=== PATIENT | male | born 1980 | race Caucasian/White ===

== ENCOUNTER 2021-03-01 19:53 | Emergency (ER) | payer MEDICARE, SELFPAY ==
[2021-03-01 20:01] VITALS: BP 125/67; PULSE 74; RESP 18; TEMP 36.6; O2SAT 97
[2021-03-01 21:02] LABS: Glucose Point of Care 369 mg/dl (65-105)
== END 2021-03-02 03:24 | disposition left against medical advice (07) ==
PROVIDERS: Emergency Provider Emergency Medicine; PCP Family Medicine
DX: R50.9 Fever, unspecified (principal); R11.10 Vomiting, unspecified; Z53.21 Procedure and treatment not carried out due to patient leaving prior to being seen by health care provider
CPT/HCPCS: 82948; 99199

== ENCOUNTER 2021-06-01 14:30 | Emergency (ER) | payer OTHER, SELFPAY ==
--- NOTE | ~2021-06-01 | XR_ITS ---
EXAMINATION: XR chest 1V portable EXAM DATE: 06/01/2021 16:04 INDICATION: Rt lower chest pain x today. TECHNIQUE: Portable AP frontal chest x-ray was obtained. Comparison is made to prior examination from 07/19/2017. FINDINGS: The lungs are clear. There are no pleural effusions. The cardiac silhouette is enlarged. There is no pneumothorax suspected. Thoracolumbar fusion hardware. IMPRESSION: Cardiomegaly unchanged. Reviewed, dictated and finalized at location [facility]. IMPRESSION: Cardiomegaly unchanged.
[2021-06-01 14:30] VITALS: BP 216/108; PULSE 68; RESP 20; TEMP 35.8; O2SAT 100
--- NOTE | 2021-06-01 15:03 | ED.CHESTPAIN ---
HPI - Chest Pain General Chief Complaint: Shortness of Breath/Dyspnea Stated Complaint: Hurts to breath Time Seen by Provider: 06/01/21 15:04 Source: patient History of Present Illness HPI narrative: 41-year-old male hypertension, diabetes mellitus dyslipidemia, end-stage renal disease since 2015, osteomyelitis of the right foot with healing, PVD status post left little toe amputation, with a negative stress test for recurrent chest pain presents to the ER with -- right-sided chest pain which is pleuritic. Pain is made worse by deep breathing. Pain is sharp and stabbing. -- Shortness of breath with deep breathing. Chest congestion -- Incomplete dialysis treatments at [place] secondary to decrease in blood pressure and cramps during dialysis treatments. -- hypertensive with a blood pressure of 210/87. MD complaint: chest pain Onset (ago): month(s) ( he has chronic chest pains. He was seen by cardiology in March and had a negative stress test in April of 2021.) Timing of current episode: episodic Prior episodes: Yes Onset: other ( Associated with deep breathing) Pain location: right chest Pain radiation: none Severity: moderate Quality: aching and sharp Relieving factors: nothing Exacerbating factors: nothing and inspiration Treatment prior to arrival: none Risk Factors Coronary artery disease risk factors: diabetes, hyperlipidemia and hypertension Thoracic aortic dissection risk factors: longstanding hypertension Related Data Home Medications Medication Instructions Recorded Confirmed furosemide 80 mg tablet 80 mg PO TID tablet 04/29/21 06/01/21 atorvastatin 40 mg PO DAILY 06/01/21 06/01/21 calcium acetate(phosphat bind) 667 mg PO DAILY 06/01/21 06/01/21 Allergies Allergy/AdvReac Type Severity Reaction Status Date / Time amlodipine [Norvasc] Allergy Intermediate Unknown Verified 04/29/21 07:56 morphine Allergy Intermediate Unknown Verified 04/29/21 07:56 levofloxacin Allergy Mild Unknown Verified 04/29/21 07:56 Review of Systems Review of Systems: All systems reviewed & are unremarkable except as noted in HPI and below Constitutional: Constitutional: Reports as per HPI and Reports no additional constitutional complaints Eyes: Eyes: Reports as per HPI and Reports no additional eye complaints ENT: Reports system reviewed and no additional complaints, except as documented and Reports as per HPI Cardiovascular: Cardiovascular: Reports as per HPI, Reports no additional cardiovascular complaints and Reports chest pain Respiratory: Respiratory: Reports as per HPI, Reports no additional respiratory complaints and Reports dyspnea Gastrointestinal: Gastrointestinal: Reports as per HPI and Reports no additional gastrointestinal complaints Genitourinary: Comments: Patient is aneuric. On HD via left arm AV fistula Musculoskeletal: Musculoskeletal: Reports no additional musculoskeletal complaints Integumentary/Breasts: Skin/Breast: Reports system reviewed and no additional complaints, except as docu and Reports as per HPI Neurologic: Reports system reviewed and no additional complaints, except as documented and Reports as per HPI Psychiatric: Psychiatric: Reports no additional psychiatric complaints and Reports as per HPI Endocrine: Endocrine: Reports no additional endocrine complaints and Reports as per HPI Hematologic/Lymphatic: Hematologic/Lymphatic: Reports no additional hematologic/lymphatic complaints and Reports as per HPI Allergic/Immunologic: Allergic/Immunologic: Reports no additional allergic/immunologic complaints and Reports as per HPI PMF Past Medical History Medical History Cellulitis of right leg Chronic back pain Diabetes mellitus with retinopathy End stage renal disease on dialysis Hypertension Pre-op evaluation Right leg pain Skin ulcer of plantar aspect of right foot Swelling of right lower extremity Surgical History Surgica
--- NOTE | 2021-06-01 15:29 | ECG_ITS ---
Measurements Intervals [place] Rate: 64 P: 43 [place]: 198 QRS: 152 QRSD: 113 T: 21 QT: 422 QTc: 435 Interpretive Statements SINUS RHYTHM POSSIBLE RIGHT VENTRICULAR HYPERTROPHY [SOME/ALL OF: PROMINENT R IN V1, LATE TRANSITION, RAD, ANANDA, SSS] TALL T-WAVES, SUGGESTS HYPERKALEMIA ABNORMAL ECG NO PREVIOUS ECG AVAILABLE FOR COMPARISON Electronically Signed On 06-02-2021 15:26:21 CDT by Tadeo Hernandez M.D.
[2021-06-01 16:07] LABS: Basophils Absolute Auto 0.01 K/mm3 (0.00-0.10); Basophils Percent Auto 0.2 % (0.0-1.0); Eosinophils Absolute Auto 0.05 K/mm3 (0.02-0.50); Eosinophils Percent Auto 1.2 % (1.0-6.0); Hematocrit 35.6 % (40.0-54.0); Hemoglobin 11.9 g/dL (14.0-18.0); Immature Granulocyte Absolute 0.01 K/mm3 (0.00-0.00); Immature Granulocyte Percent A 0.2 % (0.0-0.0); Lymphocytes Absolute Auto 0.98 K/mm3 (1.10-4.50); Lymphocytes Percent Auto 23.1 % (18.0-42.0); Mean Corpuscular HGB Conc 33.4 g/dL (32.0-36.0); Mean Corpuscular Hemoglobin 29.2 pg (27.0-31.0); Mean Corpuscular Volume 87.3 fL (78.0-102.0); Mean Platelet Volume 9.4 fl (8.7-11.0); Monocytes Absolute Auto 0.33 K/mm3 (0.10-0.90); Monocytes Percent Auto 7.8 % (2.0-11.0); Neutrophils Absolute Auto 2.9 K/mm3 (1.7-7.2); Neutrophils Percent Auto 67.5 % (50.0-70.0); Platelet Count Result 190 K/mm3 (150-420); Red Blood Count 4.08 M/mm3 (4.70-6.10); Red Cell Distribution Width 13.7 % (11.6-14.4); White Blood Count 4.2 K/mm3 (4.8-10.8)
[2021-06-01 16:12] LABS: Lactic Acid Reflex 0.9 mmol/L (0.4-2.0)
[2021-06-01 16:15] LABS: INR 1.1; Prothrombin Time 11.7 Seconds (9.50-12.10)
[2021-06-01 16:21] LABS: Alanine Aminotransferase 37 U/L (16-63); Albumin Level 3.8 g/dL (3.4-5.0); Alkaline Phosphatase 183 U/L (46-116); Aspartate Amino Transferase 23 U/L (15-37); Bilirubin,Total 0.6 mg/dL (0.00-1.00); Blood Urea Nitrogen 88 mg/dL (7-18); Carbon Dioxide 21 mmol/L (21-32); Estimated Glomerular Filt Rate 5; Glucose 288 mg/dL (70-99); Total Protein 7.6 g/dL (6.4-8.2); Troponin I 32.3 ng/L (0.00-60.4)
[2021-06-01 16:25] LABS: Anion Gap 13 mmol/L (8-16); Chloride 95 mmol/L (98-108); Osmolality Calculated 305 mOsm/kg (285-295); Sodium 129 mmol/L (136-145)
[2021-06-01 16:30] LABS: D Dimer 0.84 mg/L (0.19-0.50)
[2021-06-01] MEDS: LABETALOL HCL INJ 100 MG/20 ML VIAL 10 MG IV PUSH (16:31)
[2021-06-01] MEDS: INSULIN HUMAN REGULAR (*BKC) 100 UNITS/ML IV PUSH (17:37)
[2021-06-01] MEDS: SODIUM ZIRCONIUM CYCLOSILICATE 5 GM POWD.PACK PO (17:39)
[2021-06-01] MEDS: SODIUM BICARBONATE 8.4% 50 MEQ/50 ML SYRINGE IV PUSH (17:41)
[2021-06-01] MEDS: DEXTROSE 50% 25 GM/50 ML SYRINGE IV PUSH (17:41)
[2021-06-01] MEDS: SODIUM CHLORIDE 0.9% IV 100 ML 600 ML (17:47)
[2021-06-01] MEDS: CALCIUM GLUCONATE 1,000 MG/10 ML VIAL 1000 MG IV PUSH (17:49)
[2021-06-01] MEDS: hydrALAZINE HCL 20 MG/ML VIAL 10 MG IV PUSH (17:55)
--- NOTE | 2021-06-01 18:20 | PC.NURSE ---
REPORT TO ORTEGA WHEELER
[2021-06-01] MEDS: cloNIDine HCL 0.2 MG TABLET PO (19:02)
[2021-06-01] MEDS: HYDROcodone/acetaminophen (*CRX) 10-325 MG TABLET 1 TAB PO (19:02)
[2021-06-01 19:21] VITALS: BP 204/100; PULSE 74; RESP 18; O2SAT 97
[2021-06-01 20:02] VITALS: BP 209/85; PULSE 75
[2021-06-01] MEDS: NITROGLYCERIN/D5W 200 MCG/ML 50 MG/250 ML BTL IV CONT (20:02)
[2021-06-01 20:47] VITALS: BP 195/89; PULSE 71; RESP 20; O2SAT 98
[2021-06-01 21:09] VITALS: BP 170/102; PULSE 75; RESP 18; TEMP 36.1; O2SAT 99
[2021-06-01] MEDS: HYDROmorphone HCL INJ (*CRX) 2 MG/ML VIAL 1 MG IM (21:19)
--- NOTE | 2021-06-01 21:25 | PC.NURSE ---
Pt resting and talking on his phone, BP remains elevated at 170/102 c Nitro gtt infusing per order. Pain injection of Dilaudid given per order before pt transfer. Awaiting [facility] for transfer.
== END 2021-06-01 21:44 | disposition short-term general hospital (02) ==
PROVIDERS: Emergency Provider Internal Medicine Critical Care Medicine; PCP Nurse Practitioner Family
DX: E87.5 Hyperkalemia (principal); N18.6 End stage renal disease; I10 Essential (primary) hypertension; R06.02 Shortness of breath
CPT/HCPCS: 36415; 71045; 80053; 83605; 83880; 84484; 85025; 85380; 85610; 93005; 96365; 96372; 96375; 99285; A9270; J0360; J0610; J1170; J1815

== ENCOUNTER 2022-04-07 11:14 | Outpatient (CLI) | payer OTHER, SELFPAY ==
--- NOTE | ~2022-04-07 | XR_ITS ---
Clinical Indication: Shortness of breath PA and lateral views of the chest: Comparison: 06/01/2021 Findings: The lungs are clear, without evidence of focal consolidation or pleural effusion. Cardiome diastinal silhouette is stable. Thoracolumbar spinal fixation hardware again noted. Impression: Clear lungs. Reviewed, dictated and finalized at [facility]. EMS ADMINISTRATION ANALYST Impression: Clear lungs.
[2022-04-07 12:13] LABS: Alanine Aminotransferase 22 U/L (16-63); Albumin Level 3.6 g/dL (3.4-5.0); Alkaline Phosphatase 333 U/L (46-116); Anion Gap 12 mmol/L (8-16); Aspartate Amino Transferase 28 U/L (15-37); Bilirubin,Total 0.5 mg/dL (0.00-1.00); Blood Urea Nitrogen 39 mg/dL (7-18); Calcium 8.1 mg/dL (8.5-10.1); Carbon Dioxide 27 mmol/L (21-32); Chloride 92 mmol/L (98-108); Estimated Glomerular Filt Rate 8; Glucose 398 mg/dL (70-99); Osmolality Calculated 298 mOsm/kg (285-295); Potassium 4.7 mmol/L (3.5-5.1); Sodium 131 mmol/L (136-145); Total Protein 6.9 g/dL (6.4-8.2)
[2022-04-07 12:16] LABS: SARS-CoV-2 RNA PCR Negative (Negative)
[2022-04-07 13:30] LABS: Basophils Absolute Auto 0.02 K/mm3 (0.00-0.10); Basophils Percent Auto 0.3 % (0.0-1.0); Eosinophils Absolute Auto 0.02 K/mm3 (0.02-0.50); Eosinophils Percent Auto 0.3 % (1.0-6.0); Hematocrit 33.3 % (40.0-54.0); Immature Granulocyte Absolute 0.03 K/mm3 (0.00-0.00); Immature Granulocyte Percent A 0.4 % (0.0-0.0); Lymphocytes Percent Auto 15.9 % (18.0-42.0); Mean Corpuscular Hemoglobin 28.5 pg (27.0-31.0); Mean Corpuscular Volume 86.3 fL (78.0-102.0); Mean Platelet Volume 10.2 fl (8.7-11.0); Monocytes Percent Auto 7.2 % (2.0-11.0); Neutrophils Absolute Auto 5.3 K/mm3 (1.7-7.2); Neutrophils Percent Auto 75.9 % (50.0-70.0); Platelet Count Result 221 K/mm3 (150-420); Red Blood Count 3.86 M/mm3 (4.70-6.10); Red Cell Distribution Width 13.5 % (11.6-14.4); White Blood Count 6.9 K/mm3 (4.8-10.8)
== END 2022-04-07 11:15 | disposition home or self-care (01) ==
PROVIDERS: PCP Nurse Practitioner Family; Visit Provider Nurse Practitioner Family
DX: R06.02 Shortness of breath (principal); Z20.822 Contact with and (suspected) exposure to COVID-19
CPT/HCPCS: 36415; 71046; 80053; 85025; U0003; U0005

== ENCOUNTER 2022-04-21 14:15 | Outpatient (CLI) | payer OTHER, SELFPAY ==
--- NOTE | 2022-04-21 14:23 | ECHO_ITS ---
Patient Info Name: Solis Barcenas Age: 42 years : 1980 Gender: Male Ht: 72 in Wt: 210 lbs BSA: 2.22 m2 HR: 58 bpm BP: 94 / 48 mmHg Technical Quality: Good Exam Date: 04/21/2022 3:12 PM Exam Location: [facility] Patient Status: Outpatient Admit Date: 04/21/2022 Staff Ordering Physician: Ankur Jorge APRN Electrode Turner And Finisher: Alejandro Alfonso, HUDSON, RT Attending Provider: Ankur Jroge APRN Exam Type: CA echo doppler color flow Study Info Indications R06.02 - Shortness of breath Complete two-dimensional, color flow and Doppler transthoracic echocardiogram is performed. Strain analysis performed. Summary 1. Complete two-dimensional, color flow and Doppler transthoracic echocardiogram is performed. 2. Left ventricular chamber dimension is normal. 3. Left ventricular systolic function is normal, estimated at 60-65%. 4. There is mildly increased left ventricular wall thickness. 5. The left ventricular diastolic function is grade I diastolic dysfunction. 6. E/e' 6 is not elevated. 7. Global longitudinal strain is abnormal at -14.2%. 8. Right ventricular chamber dimension is moderately enlarged. 9. Right atrial chamber dimension is moderately enlarged. 10. There is mild aortic valve sclerosis. 11. The mitral valve has moderately calcified annulus. 12. There is mild tricuspid valve regurgitation. 13. Mild pulmonary hypertension, estimated pulmonary arterial systolic pressure is 43 mmHg. 14. There is trace pulmonic regurgitation. 15. Dilated inferior vena cava with >50% collapse upon inspiration consistent with elevated right atrial pressure, 10 mmHg. 16. There is trivial pericardial effusion. Left Ventricle E/e' 6 is not elevated. Global longitudinal strain is abnormal at -14.2%. Left ventricular chamber dimension is normal. Left ventricular systolic function is normal, estimated at 60-65%. There is mildly increased left ventricular wall thickness. The left ventricular diastolic function is grade I diastolic dysfunction. Right Ventricle Right ventricular systolic function is normal based on normal TAPSE 1.8 cm as RV function is not well seen. Right ventricular chamber dimension is moderately enlarged. Left Atria Left atrial chamber dimension is normal. Right Atria Right atrial chamber dimension is moderately enlarged. Aortic Valve The aortic valve is trileaflet. There is mild aortic valve sclerosis. There is no aortic valve stenosis. There is no aortic valve regurgitation. Pulmonic Valve There is trace pulmonic regurgitation. Mitral Valve The mitral valve has moderately calcified annulus. There is no mitral valve stenosis. There is no mitral valve regurgitation. Tricuspid Valve There is mild tricuspid valve regurgitation. Mild pulmonary hypertension, estimated pulmonary arterial systolic pressure is 43 mmHg. Pericardium/Pleural There is trivial pericardial effusion. Inferior Vena Cava Dilated inferior vena cava with >50% collapse upon inspiration consistent with elevated right atrial pressure, 10 mmHg. Aorta The aortic root size at the sinus of Valsalva is normal. Left Ventricular Outflow Tract Name Value Normal LVOT 2D LVOT Diameter 2.1 cm
== END 2022-04-21 14:16 | disposition home or self-care (01) ==
LOC: CHSIMG 14:17
PROVIDERS: PCP Nurse Practitioner Family; Visit Provider Nurse Practitioner Family
DX: R06.02 Shortness of breath (principal); I27.20 Pulmonary hypertension, unspecified; I08.3 Combined rheumatic disorders of mitral, aortic and tricuspid valves
CPT/HCPCS: 93306

== ENCOUNTER 2023-03-16 10:38 | Emergency (ER) | payer OTHER, SELFPAY ==
--- NOTE | ~2023-03-16 | XR_ITS ---
AP view of the pelvis and AP and lateral views of the right hip Clinical history: Pain Findings: No acute fracture or dislocation is seen. Osseous alignment is anatomic. Bilateral hip and SI joint spaces are preserved. Soft tissues are unremarkable. Impression: No significant abnormality is seen. Reviewed, dictated and finalized at [facility]. OLOGY LABORATORY TECHNOLOGIST Impression: No significant abnormality is seen.
--- NOTE | ~2023-03-16 | XR_ITS ---
Lumbosacral Spine: AP and lateral views Clinical History: Pain Findings: No acute fracture or subluxation seen. There is posterior fusion hardware from T10 to L1, w ith bilateral rods and transpedicular screws present. There is interbody fusion device at T11-T12. Th ere is minimal degenerative disc change of the lumbar spine. There is moderate to advanced facet arth ropathy throughout the lumbar spine. Questionable extensive sclerotic change of the osseous structure s. The sacroiliac joints are normally outlined. Impression: Posterior fusion from T10 to L1, as detailed above. [id number] degenerative spondylosis in the lumbar spine. Questionable extensive sclerotic change. Correlate for metabolic bone disease. Reviewed, dictated and finalized at location M. REAM BIOMANUFACTURING TECHNICIAN Impression: Posterior fusion from T10 to L1, as detailed above. [id number] degenerative spondylosis in the lumbar spine. Questionable extensive sclerotic change. Correlate for metabolic bone disease.
[2023-03-16 10:38] VITALS: BP 155/84; PULSE 73; RESP 17; TEMP 36.8; O2SAT 99
--- NOTE | 2023-03-16 10:55 | ED.LOWEXIN ---
HPI - Extremity Injury (Lower) General Chief Complaint: Extremity Injury, Lower Stated Complaint: right hip Time Seen by Provider: 03/16/23 10:43 Source: patient Mode of arrival: ambulatory Limitations: no limitations History of Present Illness HPI Narrative: Patient is a 43 year old male with a significant PMH that presents today for right hip pain. Patient had a broken left foot and was supposed To be wearing a boot but decided not to wear the boot because he was on even it was affecting his right hip. He has not been wearing the boot. His right hip has been hurting him. Will then keri day he was walking up a stair and caught his left foot on the stair and felt like he pulled his hepatic place. His right hip now is very painful to movement and he said he could barely get out bed. Does have some [place] sent home from his foot so he took 1 [place] before he came here a . Patient is currently on dialysis and cannot take NSAIDs MD complaint: hip injury Onset (ago): day(s) Injury: Right: hip Type of Injury: hyperextension Place: street/outdoors Severity: moderate Severity scale (1-10): 6 Relieving factors: immobilization Exacerbating factors: weight bearing and movement Context: other (up stairs) Associated symptoms: snap/pop sensation Other symptoms: none Related Data Home Medications Medication Instructions Recorded Confirmed atorvastatin 40 mg tablet 40 mg PO DAILY 06/01/21 03/16/23 nitroglycerin 0.4 mg sublingual 0.4 mg sublingual Q5M PRN Chest 05/29/22 03/16/23 tablet Pain blood-glucose sensor (DexRenrendai G6 10/04/22 03/16/23 Sensor device) blood-glucose transmitter (Dexcom 10/04/22 03/16/23 G6 Transmitter device) hydralazine 100 mg tablet 50 mg PO BID 10/04/22 03/16/23 metoprolol succinate 100 mg 50 mg PO BID 10/04/22 03/16/23 tablet,extended release 24 hr amiodarone 200 mg tablet 200 mg PO DAILY 12/13/22 03/16/23 apixaban 5 mg tablet (Eliquis) 5 mg PO BID 12/13/22 03/16/23 hydralazine 25 mg tablet 37.5 mg PO .at bedtime 12/13/22 03/16/23 pantoprazole 40 mg tablet,delayed 40 mg PO QAM 12/13/22 03/16/23 release isosorbide mononitrate 30 mg 30 mg PO DAILY 01/10/23 03/16/23 tablet,extended release 24 hr ticagrelor 90 mg tablet (Brilinta) 90 mg PO Q12H 01/10/23 03/16/23 Allergies Allergy/AdvReac Type Severity Reaction Status Date / Time amlodipine [Norvasc] Allergy Intermediate Unknown Verified 03/16/23 10:46 morphine Allergy Intermediate Unknown Verified 03/16/23 10:46 levofloxacin Allergy Mild Unknown Verified 03/16/23 10:46 lisinopril Allergy Unknown Unknown Verified 03/16/23 10:46 carvedilol AdvReac Unknown Shakiness Verified 03/16/23 10:46 Review of Systems Review of Systems: All systems reviewed & are unremarkable except as noted in HPI and below Constitutional: Constitutional: Reports no additional constitutional complaints Eyes: Eyes: Reports no additional eye complaints ENT: Reports system reviewed and no additional complaints, except as documented Cardiovascular: Cardiovascular: Reports no additional cardiovascular complaints Respiratory: Respiratory: Reports no additional respiratory complaints Gastrointestinal: Gastrointestinal: Reports no additional gastrointestinal complaints Genitourinary: Genitourinary: Reports no additional male genitourinary complaints Musculoskeletal: Musculoskeletal: Reports back pain and Reports arthralgias (right hip) Integumentary/Breasts: Skin/Breast: Reports system reviewed and no additional complaints, except as docu Neurologic: Reports system reviewed and no additional complaints, except as documented Psychiatric: Psychiatric: Reports no additional psychiatric complaints Endocrine: Endocrine: Reports no additional endocrine complaints Hematologic/Lymphatic: Hematologic/Lymphatic: Reports no additional hematologic/lymphatic complaints Allergic/Immunologic: Allergic/Immunologic: Reports no additional allergic/immunologic complaints [facility]
[2023-03-16] MEDS: HYDROcodone/acetaminophen (*CRX) 10-325 MG TABLET 1 TAB PO (11:01)
[2023-03-16 12:08] VITALS: BP 145/71; PULSE 61; RESP 17; TEMP 36.8; O2SAT 99
== END 2023-03-16 12:08 | disposition home or self-care (01) ==
PROVIDERS: Emergency Provider Family Medicine; PCP Nurse Practitioner Family
DX: S79.911A Unspecified injury of right hip, initial encounter (principal); M54.50 Low back pain, unspecified; I48.91 Unspecified atrial fibrillation; J44.9 Chronic obstructive pulmonary disease, unspecified; E11.9 Type 2 diabetes mellitus without complications; I10 Essential (primary) hypertension; Z79.899 Other long term (current) drug therapy; Z79.01 Long term (current) use of anticoagulants; X50.0XXA Overexertion from strenuous movement or load, initial encounter; Y92.410 Unspecified street and highway as the place of occurrence of the external cause
CPT/HCPCS: 72100; 73502; 99284; A9270

== ENCOUNTER 2023-05-04 12:07 | Outpatient (CLI) | payer OTHER, SELFPAY ==
--- NOTE | ~2023-05-04 | XR_ITS ---
AP view of the pelvis and AP and lateral views of the right hip Clinical history: Pain Findings: No acute fracture or dislocation is seen. Osseous alignment is anatomic. Bilateral hip and SI joint spaces are preserved. Soft tissues are unremarkable. Impression: No significant abnormality is seen. Reviewed, dictated and finalized at [facility]. CAL INSTRUCTOR Impression: No significant abnormality is seen.
== END 2023-05-04 12:08 | disposition home or self-care (01) ==
PROVIDERS: PCP Nurse Practitioner Family; Visit Provider Nurse Practitioner Family
DX: M25.551 Pain in right hip (principal)
CPT/HCPCS: 73502

== ENCOUNTER 2023-09-03 10:37 | Outpatient (CLI) | payer MEDICARE, SELFPAY ==
--- NOTE | 2023-09-03 10:53 | ECG_ITS ---
Test Date: 2023-09-03 11:02:44 Measurements Intervals [place] Rate: 75 P: 64 ND: 187 QRS: 106 QRSD: 109 T: 40 QT: 411 QTc: 461 Interpretive Statements SINUS RHYTHM WITH OCCASIONAL SUPRAVENTRICULAR PREMATURE COMPLEXES RIGHT AXIS DEVIATION BORDERLINE ST ABNORMALITY- ANTEROLAT/INF LEADS BORDERLINE ECG No previous ECG available for comparison Electronically Signed On 09-03-2023 11:31:48 CDT by Goyo Wright D.O.
[2023-09-03 10:56] LABS: Hematocrit 23.9 % (40.0-54.0); Hemoglobin 7.7 g/dL (14.0-18.0); Mean Corpuscular HGB Conc 32.2 g/dL (32-36); Mean Corpuscular Hemoglobin 27.8 pg (27.0-31.0); Mean Corpuscular Volume 86.3 fL (78.0-102.0); Mean Platelet Volume 9.5 fl (8.7-11.0); Platelet Count Result 176 K/mm3 (150-420); Red Blood Count 2.77 M/mm3 (4.70-6.10); Red Cell Distribution Width 16.9 % (11.6-14.4); White Blood Count 3.7 K/mm3 (4.8-10.8)
[2023-09-03 11:20] LABS: Alanine Aminotransferase 18 U/L (16-63); Albumin Level 3.3 g/dL (3.4-5.0); Alkaline Phosphatase 623 U/L (46-116); Anion Gap 12 mmol/L (4-12); Aspartate Amino Transferase 13 U/L (15-37); Bilirubin,Total 0.4 mg/dL (0.00-1.00); Blood Urea Nitrogen 57 mg/dL (7-18); Calcium 7.9 mg/dL (8.5-10.1); Carbon Dioxide 25 mmol/L (21-32); Chloride 91 mmol/L (98-108); Estimated Glomerular Filt Rate 7; Potassium 5.1 mmol/L (3.5-5.1); Sodium 128 mmol/L (136-145); Thyroid Stimulating Hormone 7.76 uIU/mL (0.36-3.74); Total Protein 6.7 g/dL (6.4-8.2)
[2023-09-03 11:22] LABS: Glucose 545 mg/dL (70-99); Osmolality Calculated 306 mOsm/kg (285-295)
[2023-09-03 11:55] LABS: Band Neutrophils Percent 1 % (0-6); Basophils Percent Manual 0 % (0-1); Eosinophils Percent Manual 0 % (1-6); Lymphocytes Absolute Manual 0.77 K/mm3 (1.1-4.5); Lymphocytes Percent Manual 21 % (18-44); Monocytes Absolute Manual 0.14 K/mm3 (0.1-0.90); Monocytes Percent Manual 4 % (3-9); Neutrophils Absolute Manual 2.77 K/mm3 (1.3-6.7); Neutrophils Percent Manual 74 % (46-73); Platelet Estimate Adequate (Adequate); Total Cells Counted 100
== END 2023-09-03 10:38 | disposition home or self-care (01) ==
PROVIDERS: PCP Family Medicine; Visit Provider Nurse Practitioner Family
DX: R06.02 Shortness of breath (principal); I48.91 Unspecified atrial fibrillation; I10 Essential (primary) hypertension; R94.31 Abnormal electrocardiogram [ECG] [EKG]
CPT/HCPCS: 36415; 80053; 84443; 84484; 85025; 93005

== ENCOUNTER 2023-09-03 11:47 | Emergency (ER) | payer MEDICARE, SELFPAY ==
[2023-09-03] VITALS (22 sets, daily range): BP systolic 154–194; BP diastolic 79–90; PULSE 67–135; RESP 12–22; TEMP 36.8–36.9; O2SAT 96–100
--- NOTE | ~2023-09-03 | XR_ITS ---
XR chest 1V portable Ordering provider: Jose Schafer MD History: 43 years Male with . RT sided chest pain w/ SOB X 3 weeks . Comparison: April 07, 2022 FINDINGS: MEDIASTINUM: The cardiac silhouette is slightly enlarged. Congestive cleo. LUNGS: No infiltrates, effusions or pneumothorax. Prominent markings bilaterally. OTHER: No free air under the diaphragm. IMPRESSION: Cardiomegaly with congestive cleo. Cardiac decompensation should be considered. Clinical evaluation a dvised. Reviewed, dictated and finalized at location A. IMPRESSION: Cardiomegaly with congestive cleo. Cardiac decompensation should be considered. Clinical evaluation advised.
--- NOTE | 2023-09-03 11:58 | ECG_ITS ---
Test Date: 2023-09-03 12:18:37 Measurements Intervals [place] Rate: 77 P: 84 LA: 169 QRS: 111 QRSD: 116 T: -10 QT: 439 QTc: 499 Interpretive Statements SINUS RHYTHM SUPRAVENTRICULAR TRIGEMINY RIGHT AXIS DEVIATION INTRAVENTRICULAR CONDUCTION DELAY NONSPECIFIC ST-T WAVE ABNORMALITY- INF/LAT LEADS ABNORMAL ECG Compared to ECG 09/03/2023 11:02:44 SUPRAVENTRICULAR TRIGEMINY NOW PRESENT Electronically Signed On 09-03-2023 15:21:04 CDT by Goyo Wright D.O.
--- NOTE | 2023-09-03 12:00 | PC.NURSE ---
radiology at bedside.
--- NOTE | 2023-09-03 12:00 | PC.NURSE ---
Upon arrival to Play Back Operator attempted to obtain a finger stick glucose. Patient refused.
--- NOTE | 2023-09-03 12:11 | PC.NURSE ---
lab at bedside.
[2023-09-03] MEDS: NITROGLYCERIN SL 0.4 MG TABLET SUBLINGUAL (12:33)
[2023-09-03 12:36] LABS: Basophils Absolute Auto 0.01 K/mm3 (0.00-0.10); Basophils Percent Auto 0.2 % (0.0-1.0); Eosinophils Absolute Auto 0.04 K/mm3 (0.02-0.50); Eosinophils Percent Auto 0.9 % (1.0-6.0); Hematocrit 26.6 % (40.0-54.0); Hemoglobin 8.5 g/dL (14.0-18.0); Immature Granulocyte Absolute 0.03 K/mm3 (0.00-0.00); Immature Granulocyte Percent A 0.7 % (0.0-0.0); Lymphocytes Absolute Auto 0.82 K/mm3 (1.10-4.50); Lymphocytes Percent Auto 19.2 % (18.0-42.0); Mean Corpuscular Hemoglobin 27.6 pg (27.0-31.0); Mean Corpuscular Volume 86.4 fL (78.0-102.0); Mean Platelet Volume 9.9 fl (8.7-11.0); Monocytes Absolute Auto 0.17 K/mm3 (0.10-0.90); Neutrophils Absolute Auto 3.19 K/mm3 (1.70-7.20); Platelet Count Result 191 K/mm3 (150-420); Red Blood Count 3.08 M/mm3 (4.70-6.10); Red Cell Distribution Width 17.2 % (11.6-14.4); White Blood Count 4.3 K/mm3 (4.8-10.8)
--- NOTE | 2023-09-03 12:36 | PC.NURSE ---
Patient initially refused nitro sublingual, patient states he isnt having chest pain related to anything cardiac so he doesn't think its going to work, Patient educated that it will help bring blood pressure down. Patient refuses any following nitro tablets.
[2023-09-03 12:40] LABS: INR 0.9; Partial Thromboplastin Time 26.5 Sec (23.9-30.70); Prothrombin Time 10.4 Seconds (9.50-12.1)
[2023-09-03 12:51] LABS: Alanine Aminotransferase 19 U/L (16-63); Albumin Level 3.5 g/dL (3.4-5.0); Alkaline Phosphatase 683 U/L (46-116); Anion Gap 12 mmol/L (4-12); Aspartate Amino Transferase 12 U/L (15-37); Bilirubin,Total 0.5 mg/dL (0.00-1.00); Blood Urea Nitrogen 59 mg/dL (7-18); Calcium 8.2 mg/dL (8.5-10.1); Carbon Dioxide 25 mmol/L (21-32); Chloride 91 mmol/L (98-108); Estimated CRCL calculation 11 ml/min; Estimated Glomerular Filt Rate 7; Lipase 71 U/L (16-77); NT Pro B Type Natriuretic Pept 33334 pg/mL (0-125); Osmolality Calculated 304 mOsm/kg (285-295); Potassium 4.8 mmol/L (3.5-5.1); Sodium 128 mmol/L (136-145); Total Protein 7.2 g/dL (6.4-8.2)
[2023-09-03 12:52] LABS: Glucose 491 mg/dL (70-99)
[2023-09-03 12:57] LABS: Lactic Acid Reflex 1.6 mmol/L (0.4-2.0)
[2023-09-03] MEDS: hydrALAZINE HCL 20 MG/ML VIAL 10 MG IV PUSH (13:19)
--- NOTE | 2023-09-03 13:23 | ED.CHESTPAIN ---
HPI - Chest Pain General Chief Complaint: Recheck/Abnormal Lab/Rx Stated Complaint: abnormal labs Time Seen by Provider: 09/03/23 11:58 Source: patient and family Mode of arrival: ambulatory Limitations: no limitations History of Present Illness HPI narrative: this is a 43-year-old male history of CAD was recently seen in the hospital and had stents placed approximately 2 weeks ago at [facility] in [place]. Also has a history of diabetes end-stage kidney disease on hemodialysis. Patient presents after he had a follow-up at his primaries office with chest tightness and dyspnea on exertion. Patient has peripheral edema, is scheduled to have dialysis tomorrow on Sunday. Patient was concerned with some blood drawn at his primary is with an elevated troponin and elevated blood glucose at was over 500. There is no fever chills no nausea vomiting no abdominal pain no diarrhea constipation no hematuria or dysuria. MD complaint: chest discomfort Pertinent past history: coronary artery disease Onset (ago): day(s) Timing of current episode: constant Prior episodes: Yes Onset: during exertion Related Data Home Medications Medication Instructions Recorded Confirmed atorvastatin 40 mg tablet 40 mg PO DAILY 06/01/21 09/03/23 nitroglycerin 0.4 mg sublingual 0.4 mg sublingual Q5M PRN Chest 05/29/22 09/03/23 tablet Pain blood-glucose sensor (Dexcom G6 10/04/22 09/03/23 Sensor device) blood-glucose transmitter (Dexcom 10/04/22 09/03/23 G6 Transmitter device) hydralazine 100 mg tablet 50 mg PO BID 10/04/22 09/03/23 amiodarone 200 mg tablet 200 mg PO DAILY 12/13/22 09/03/23 apixaban 5 mg tablet (Eliquis) 5 mg PO BID 12/13/22 09/03/23 hydralazine 25 mg tablet 37.5 mg PO .at bedtime 12/13/22 09/03/23 pantoprazole 40 mg tablet,delayed 40 mg PO QAM 12/13/22 09/03/23 release isosorbide mononitrate 30 mg 30 mg PO DAILY 01/10/23 09/03/23 tablet,extended release 24 hr ticagrelor 90 mg tablet (Brilinta) 90 mg PO Q12H 11/08/23 07/01/24 losartan 50 mg tablet 50 mg PO DAILY 09/03/23 09/03/23 Allergies Allergy/AdvReac Type Severity Reaction Status Date / Time amlodipine [Norvasc] Allergy Intermediate Unknown Verified 09/03/23 12:32 morphine Allergy Intermediate Unknown Verified 09/03/23 12:32 levofloxacin Allergy Mild Unknown Verified 09/03/23 12:32 lisinopril Allergy Unknown Unknown Verified 09/03/23 12:32 carvedilol AdvReac Unknown Shakiness Verified 09/03/23 12:32 Review of Systems Review of Systems: All systems reviewed & are unremarkable except as noted in HPI and below PMFSH Past Medical History Medical History A-fib Amputation toe Anxiety Aortic aneurysm ascending aorta Cataract Cellulitis of right leg Chronic back pain COPD (chronic obstructive pulmonary disease) Diabetes mellitus with retinopathy Dialysis patient Difficulty staying asleep End stage renal disease on dialysis Fracture of transverse process of lumbar vertebra History of blood transfusion Hypertension Neuropathy Pre-op evaluation Right leg pain SI (sacroiliac) joint dysfunction Skin ulcer of plantar aspect of right foot Spinal cord cysts Swelling of right lower extremity Type 2 diabetes mellitus Wears hearing aid Surgical History Surgical History Elective surgery fistula surgery H/O eye surgery retinal bilateral cataract on right eye History of foot surgery left toe amputation right bone spur removal History of heart artery stent Previous back surgery x2 Status post laser cataract surgery of both eyes Family History Family History Mother Acute myocardial infarction Carcinoma of colon Cerebrovascular accident Depression Diabetes mellitus Heart disease Hypertension Lung cancer Skin cancer Drug addict marijuana and other unknown drugs
--- NOTE | 2023-09-03 13:24 | PC.NURSE ---
Patient refuses to keep pulse ox monitor on. patient educated on need to monitor due to him being in ED for shortness of breath as well as chest tightness.
--- NOTE | 2023-09-03 13:33 | PC.NURSE ---
Patient provided ice chips per ERP request.
== END 2023-09-03 14:24 | disposition short-term general hospital (02) ==
PROVIDERS: Emergency Provider Emergency Medicine; PCP Family Medicine
DX: I13.2 Hypertensive heart and chronic kidney disease with heart failure and with stage 5 chronic kidney disease, or end stage renal disease (principal); I50.23 Acute on chronic systolic (congestive) heart failure; E11.22 Type 2 diabetes mellitus with diabetic chronic kidney disease; N18.6 End stage renal disease; R06.02 Shortness of breath; J44.9 Chronic obstructive pulmonary disease, unspecified; I48.91 Unspecified atrial fibrillation; Z79.899 Other long term (current) drug therapy; Z79.01 Long term (current) use of anticoagulants; Z99.2 Dependence on renal dialysis
CPT/HCPCS: 36415; 71045; 80053; 83605; 83690; 83735; 83880; 84443; 84484; 85025; 85610; 85730; 86850; 86900; 86901; 93005; 96374; 99285; A9270; J0360

== ENCOUNTER 2023-10-31 16:37 | Outpatient (CLI) | payer MEDICARE, SELFPAY ==
--- NOTE | ~2023-10-31 | CT_ITS ---
EXAMINATION: CT hip LT wo con DATE: 10/31/2023 16:56 INDICATION: Left hip pain. TECHNIQUE: Computed tomography (CT) of the left hip was performed without intravenous contrast. Autom ated exposure control and iterative reconstruction technique were employed. The dose-length product w as 681.80 mGy-cm. COMPARISON: Pelvis radiograph 03/16/2023 FINDINGS: There are widespread arterial calcifications. Alignment is normal. No fracture. There are c hronic multifocal erosions of bone including the symphysis pubis, left sacroiliac joint, and left isc hium. There is a rugger jersey pattern in the spine. There is mild left hip osteoarthritis. IMPRESSION: 1. Mild left hip osteoarthritis. 2. Diffuse bone disease, consistent with renal osteodystrophy. Reviewed, dictated and finalized at location A.
== END 2023-10-31 16:38 | disposition home or self-care (01) ==
PROVIDERS: PCP Family Medicine; Visit Provider Nurse Practitioner Family
DX: M25.552 Pain in left hip (principal); M16.12 Unilateral primary osteoarthritis, left hip; M89.9 Disorder of bone, unspecified
CPT/HCPCS: 73700

== ENCOUNTER 2024-05-23 11:49 | Outpatient (CLI) | payer MEDICARE, MEDICAID, SELFPAY ==
--- NOTE | ~2024-05-23 | CT_ITS ---
CT Facial Bones Clinical Indication: Facial pain and swelling Technique: Contiguous axial scans were obtained through the facial bones followed by coronal and sagi ttal reconstructions. Dose reduction technique was used on this scan by utilizing automated exposure control and iterative reconstruction technique. The dose-length product (DLP) was 303.74 mGy-cm. Findings: No fractures are identified. There is mild mucosal thickening of the left maxillary sinus. The remaining visualized paranasal sinuses are clear. Probable degenerative change of both temporoman dibular joints. Intraorbital soft tissues appear normal. Probable mild soft tissue edema superficiall y at the left side of the face. Impression: No fracture identified. Mild subcutaneous soft tissue edema/swelling of the left side of face. Probable degenerative change of the TMJs. Left maxillary sinus disease. Reviewed, dictated and finalized at [facility]. Impression: No fracture identified. Mild subcutaneous soft tissue edema/swelling of the left side of face. Probable degenerative change of the TMJs. Left maxillary sinus disease.
--- NOTE | ~2024-05-23 | CT_ITS ---
CT sinus wo con Ordering provider: Ankur Jorge APRN History: . Facial pain swelling below Lt. orbit x2 days, NKI . Comparison: None. Technique: Thin slice Scans CT of the paranasal sinuses was performed with coronal and sagittal refor matted images. No IV contrast. . Automated exposure control and iterative reconstruction technique w ere employed. The dose-length product was 218.04 mGy-cm. Findings: NASAL SEPTUM: Mild right nasal septal deviation. OSTEOMEATAL UNITS: Bilaterally patent. NASAL TURBINATES AND NASOPHARYNX: Normal. PARANASAL SINUSES: Left maxillary sinus disease. Well aerated. VISUALIZED MASTOIDS: Normal as visualized. BONES: Normal. Small Cystic area seen in the left mandibular condyle. SUPERFICIAL SOFT TISSUES/VISUALIZED BRAIN PARENCHYMA: Normal. IMPRESSION: Left maxillary sinusitis. Right nasal septal deviation. Reviewed, dictated and finalized at location A.
[2024-05-23 12:11] LABS: Hematocrit 26.5 % (40.0-54.0); Hemoglobin 8.3 g/dL (14.0-18.0); Mean Corpuscular HGB Conc 31.3 g/dL (32-36); Mean Corpuscular Hemoglobin 26.5 pg (27.0-31.0); Mean Corpuscular Volume 84.7 fL (78.0-102.0); Mean Platelet Volume 9.6 fl (8.7-11.0); Platelet Count Result 158 K/mm3 (150-420); Red Blood Count 3.13 M/mm3 (4.70-6.10); Red Cell Distribution Width 16.1 % (11.6-14.4); White Blood Count 3.6 K/mm3 (4.8-10.8)
--- OUTSIDE RECORDS SUMMARY | 2024-05-23 12:52 | XMS_ITS | Clinical Summary ---
Author Organization [facility] Address [address] [address] Care Team Providers Care Information Security Specialist Name Role Phone Unavailable Primary Care Provider Unavailabl e Social History Tobacco Use Types Packs/Day Years Used Date Smoking Tobacco: Never Assessed Sex and Gender Information Value Date Recorded Sex Assigned at Not on file Legal Sex Male 12:19 PM CDT Gender Identity Not on file Sexual Orientation Not on file Plan of Treatment Health Maintenance Due Date Last Done Comments FIT Test 1980 FIT-DNA Test 1980 FLEXIBLE SIGMOIDOSCOPY 1980 HEPATITIS C SCREENING 1978 TDAP/TD VACCINE (1 - Tdap) 1989 DEPRESSION SCREENING 1990 HIV SCREENING 1993 COLONOSCOPY 2023 COLORECTAL CANCER SCREENING 2023 COVID-19 VACCINE ( - 2023-2 5 season) 2023 INFLUENZA VACCINE (#1) 2023 ZOSTER SERIES VACCINE (1 of 2) 02/24/2028 Adult RSV VACCINE (1 - 1-dos e 75+ series) 2053 Pneumococcal Vaccine: Childh ood and At-Risk Adult <65 yo Series Aged Out No longer el igible based on patient's age to complete this topic
--- OUTSIDE RECORDS SUMMARY | 2024-05-23 12:52 | XMS_ITS | Encounter Summary ---
Author Organization [facility] Address [facility] [place] [address] Care Team Providers Care Roller Maker Name Role Phone Rohan Johnson MD Primary Care Provider + [phone] Rohan Johnson MD Primary Care Provider [phone] Fermin Whitt MD Primary Care Provider + [phone] Sundar Chisholm DO Primary Care Provider [phone] Simon Field MD Primary Care Provider Simon Field MD Primary Care Provider Simon Field MD Unavailable + [phone] Rohan Johnson MD Unavailable [phone] Kiko Snyder MD Unavailable [phone] Kiko Snyder MD Unavailable + [phone] Merline Fair MD Unavailable Juhi Bassett [facility] Primary Care Provider [phone] Christopher Stone MD Unavailable [phone] Ankur Jorge [facility] Primary Care Provider [phone] Encounter Details Date Type Department Care Team (Late st Contact Info) Description 05/19/2017 Abstract [facility] CONVERSION [address] [place] [address] , Misty Hicks MD Social History Tobacco Use Types Packs/Day Years Used Date Smoking Tobacco: Never Assessed Sex and Gender Information Value Date Recorded Sex Assigned at Male 12/24/2020 9:15 AM CDT Legal Sex Male 4:42 PM CDT Gender Identity Male 12/24/2020 9:15 AM CDT Sexual Orientation Choose not to disclose 2020 9:15 AM CDT documented as of this encounter Plan of Treatment Upcoming Encounters Date Type Department Care Team (Late st Contact Info) Description 05/26/2024 1:15 PM CDT Appointment [facility] [address] [place] [address] [place] [address] Merline Fair MD [address] [place], [place] [phone] 05/26/2024 1:30 PM CDT Office Visit [facility] [address] [place] [address] Merline Fair MD [address] [place], [place] [phone] documented as of this encounter Visit Diagnoses Not on filedocumented in this encounter Additional Health Concerns Infection Onset Date Last Indicated Resolved Time 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 Deep posterior spine (SB) 06/08/17 blood (SB) 01/21/2017 01/21/2017 07/16/2019 7:22 AM C DT COVID-19 Rule Out 08/02/2019 08/02/2019 08/03/2019 6:59 PM CDT COVID-19 Rule Out 08/04/2019 08/04/2019 08/07/2019 10:51 AM CDT COVID-19 Rule Out 05/21/2020 05/21/2020 05/23/2020 9:16 AM CDT COVID-19 Rule Out 09/20/2020 09/20/2020 09/21/2020 5:15 PM CDT COVID-19 Rule Out 02/01/2021 02/01/2021 02/02/2021 8:46 PM CONTINUOUS IMPROVEMENT COORDINATOR COVID-19 Rule Out 02/07/2021 02/07/2021 02/08/2021 7:40 PM CONTINUOUS IMPROVEMENT COORDINATOR COVID-19 Rule Out 03/02/2021 03/02/2021 03/03/2021 1:53 PM CONTINUOUS IMPROVEMENT COORDINATOR COVID-19 Rule Out 06/01/2021 06/02/2021 06/02/2021 2:57 PM CDT COVID-19 Rule Out 08/16/2021 08/16/2021 08/16/2021 6:20 AM CDT COVID-19 Confirmed 08/16/2021 08/16/2021 12:32 AM CDT COVID-19 Rule Out 03/26/2022 03/26/2022 03/26/2022 3:12 PM CONTINUOUS IMPROVEMENT COORDINATOR COVID-19 Rule Out 02/26/2024 02/26/2024 02/26/2024 5:21 PM CONTINUOUS IMPROVEMENT COORDINATOR COVID-19 Rule Out 02/27/2024 02/27/2024 02/27/2024 4:21 PM CONTINUOUS IMPROVEMENT COORDINATOR documented as of this encounter Care Teams Roller Maker Relationship Specialty Start Date End Date Rohan Johnson MD [address] [place] [phone] PCP - General FAMILY PRACTICE 02/28/17 10/14/17 Rohan Johnson MD [address] [place] [phone] PCP - General FAMILY PRACTICE 10/15/17 08/11/18 Fermin Whitt MD [address] [place] [address] PCP - General FAMILY PRACTICE 08/12/18 07/14/19 Sundar Chisholm DO [address] [place] [address] PCP - General FAMILY PRACTICE 07/15/19 12/14/20 Simon Field MD [address] [place] [address] PCP - General FAMILY PRACTICE 12/15/20 12/22/20 Simon Field MD [address] [place] [address] PCP - General FAMILY PRACTICE 12/23/20 03/02/21 Juhi Bassett FNP [address] [place] [address] PCP - General NURSE PRACTITIONER 03/03/21 12/11/22 Ankur Jorge FNP [address] [place] [phone] PCP - General Nurse Practitioner [facility] 12/12/22 Simon Field MD [address] [place] [address] FAMILY PRACTICE 12/23/20 Rohan Johnson MD [address] [place] [phone] FAMILY PRACTICE 10/15/17 12/14/20 Kiko Snyder MD [address] [place] [address] Consulting Physician ORTHOPAEDIC SPINE SURGERY 10/03/17 Kiko Snyder MD [address] [place] [phone] Consulting Physician ORTHOPAEDIC SPINE SURGERY 10/03/17 12/14/20 Merline Fair MD [address] [place] [address] Consulting Physician CARDIOVASCULAR DISEASE 12/15/20 Christopher Stone MD [facility] [place] [address] Consulting Physician INTERVENTIONAL CARDIOLOGY 06/25/22 documented as of this encounter
--- OUTSIDE RECORDS SUMMARY | 2024-05-23 12:53 | XMS_ITS | Encounter Summary ---
Author Organization [facility] Address [address] [place] [address] Care Team Providers Care Surgical Corsetier Name Role Phone Simon Field MD Unavailable + [phone] Kiko Snyder MD Unavailable [phone] Merline Fair MD Unavailable Christopher Stone MD Unavailable [phone] Ankur Jorge Primary Care Provider [phone] Encounter Details Date Type Department Care Team (Late st Contact Info) Description 12/14/2022 Hospital Follow-up Call [facility] Unit [address] [place] [address] Sarina Rivers, RN Social History Tobacco Use Types Packs/Day Years Used Date Smoking Tobacco: Former Smokeless Tobacco: Never Alcohol Use Standard Drinks/Week Comments Yes 0 (1 standard drink = 0.6 oz pur e alcohol) 1-2/week Humiliation, Afraid, Rape, and Kick questionnair e Answer Date Recorded Within the last year, have y ou been afraid of your partner or ex-partner? No 12/10/2022 Within the last year, have y ou been humiliated or emotionally abused in other ways by your partner or ex-partner? No Within the last year, have y ou been kicked, hit, slapped, or otherwise physically hurt by your partner or ex-partner? No 12/10/2022 Within the last year, have y ou been raped or forced to have any kind of sexual activity by your partner or ex-partner? No 12/10/2022 Social Connection and Isolation Panel [NHANES] A nswer Date Recorded In a typical week, how many times do you talk on the phone with family, friends, or neighbors? Three times a week 12/10/2022 How often do you get togethe r with friends or relatives? Three times a week 12/10/2022 How often do you attend chur ch or advent services? Patient declined 12/10/2022 Do you belong to any clubs o r organizations such as yarsanism groups, unions, fraternal or athletic groups, or school groups? Patient declined 12/10/2022 How often do you attend meet ings of the clubs or organizations you belong to? Patient declined 12/10/2022 Are you , , di vorced, , never , or living with a partner? Patient declined 12/10/2022 AUDIT-C Answer Date Recorded Q1: How often do you have a drink containing alc ohol? Patient declined 12/10/2022 Q2: How many drinks containi ng alcohol do you have on a typical day when you are drinking? Patient declined 12/10/2022 Q3: How often do you have si x or more drinks on one occasion? Patient declined 12/10/2022 Overall Financial Resource Strain (CARDIA) Answe r Date Recorded How hard is it for you to pa y for the very basics like food, housing, medical care, and heating? Not hard at all 12/10/2022 [facility] of Occupat ional [facility] - Occupational Stress Questionnaire Answer Date Recorded Do you feel stress - tense, restless, nervous, or anxious, or unable to sleep at night because your mind is troubled all the time - these days? Not at all 12/10/2022 Hunger Vital Sign Answer Date Recorded Within the past 12 months, y ou worried that your food would run out before you got the money to buy more. Never true 12/11/19 23 Within the past 12 months, t he food you bought just didn't last and you didn't have money to get more. Never true 12/10/2022 PRAPARE - Transportation Answer Date Re corded In the past 12 months, has l ack of transportation kept you from medical appointments or from getting medications? No 10/2022 In the past 12 months, has l ack of transportation kept you from meetings, work, or from getting things needed for daily living? No 12/10/2022 Housing Stability Vital Sign Answer Luis e Recorded In the last 12 months, was t here a time when you were not able to pay the mortgage or rent on time? No 12/10/2022 In the last 12 months, how many places have you lived? 1 12/10/2022 In the last 12 months, was t here a time when you did not have a steady place to sleep or slept in a alf (including now)? 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 Answer Date of Assessment Author Status No 12/10/2022 7:00 AM CHARUT Tran Aldana RN Active * Do you have serious difficulty walking or climbing stairs? Answer Date of Assessment Author Status Yes 12/10/2022 7:00 AM Tran Hubbard RN Active * Do you have difficulty dressing or bathing? Answer Date of Assessment Author Status No 12/10/2022 7:00 AM Tran Hubbard RN Active * Because of a physical, mental, or emotional condition, do you have difficulty doing errands alone such as visiting a doctor's office or shopping? Answer Date of Assessment Author Status No 12/10/2022 7:00 AM Tran Hubbard RN Active documented as of this encounter Mental Status * Because of a physical, mental, or emotional condition, do you have serious difficulty concentrating, remembering, or making decisions? Answer Entry Date Author Status No 12/10/2022 7:00 AM CDT Tran Aldana, RN Active documented in this encounter Plan of Treatment Upcoming Encounters Date Type Department Care Team (Late st Contact Info) Description 05/26/2024 1:15 PM CDT Appointment [facility] [address] [place] [address] [place] [address] Merline Fair MD [address] [place] [address] 05/26/2024 1:30 PM CDT [facility] [address] [facility] [address] [place] [address] Merline Fair MD [address] [place], [place] [phone] documented as of this encounter Goals Goal Patient Goal Type Associated Problems Recent Progress Patient-Stated? Author Safety Patient/family will have appropriate support at home upon discharge General No Bev Millan, ORTEGA Safety Patient/family will have appropriate support at home upon discharge Lifestyle No Christel Paredes, ORTEGA documented as of this encounter Visit Diagnoses Not on filedocumented in this encounter Additional Health Concerns Infection Onset Date Last Indicated Resolved Time COVID-19 Rule Out 02/26/2024 02/26/2024 02/26/2024 5:21 PM GUEST SERVICE TEAM LEADER COVID-19 Rule Out 02/27/2024 02/27/2024 02/27/2024 4:21 PM GUEST SERVICE TEAM LEADER documented as of this encounter Care Teams Surgical Corsetier Relationship Specialty Start Date End Date Ankur Jorge FNP [address] [place] [address] PCP - General Nurse Practitioner Family 12/12/22 Simon Field MD [address] [place] [address] FAMILY PRACTICE 12/23/20 Kiko Snyder MD [address] [place] [phone] Consulting Physician ORTHOPAEDIC SPINE SURGERY 10/03/17 Merline Fair MD [address] [place], [place] [phone] Consulting Physician CARDIOVASCULAR DISEASE 12/15/20 Christopher Stone MD [address] [place], [place] [address] Consulting Physician INTERVENTIONAL CARDIOLOGY 06/25/22 documented as of this encounter
--- OUTSIDE RECORDS SUMMARY | 2024-05-23 12:53 | XMS_ITS | Encounter Summary ---
Author Organization [facility] Address [address] [place] [address] Care Team Providers Care Automatic Clipper And Stripper Name Role Phone Simon Field MD Unavailable + [phone] Kiko Snyder MD Unavailable [phone] Merline Fair MD Unavailable Christopher Stone MD Unavailable [phone] Ankur Jorge Primary Care Provider [phone] Encounter Details Date Type Department Care Team (Late st Contact Info) Description 08/23/2023 Hospital Follow-up Call [facility] Unit [address] [place] [address] Sarina Rivers, RN Social History Tobacco Use Types Packs/Day Years Used Date Smoking Tobacco: Former Smokeless Tobacco: Never Alcohol Use Standard Drinks/Week Comments Not Currently 0 (1 standard drink = 0.6 oz pur e alcohol) 1-2/week [facility] Utilities Answer Date Recorded In the past 12 months has e electric, gas, oil, or water company threatened to shut off services in your home? No 08/20/2023 Humiliation, Afraid, Rape, and Kick questionnair e Answer Date Recorded Within the last year, have y ou been afraid of your partner or ex-partner? No 08/20/2023 Within the last year, have y ou been humiliated or emotionally abused in other ways by your partner or ex-partner? No Within the last year, have y ou been kicked, hit, slapped, or otherwise physically hurt by your partner or ex-partner? No 08/20/2023 Within the last year, have y ou been raped or forced to have any kind of sexual activity by your partner or ex-partner? No 08/20/2023 Social Connection and Isolation Panel [NHANES] A nswer Date Recorded In a typical week, how many times do you talk on the phone with family, friends, or neighbors? Never 01/05/20 How often do you get togethe r with friends or relatives? Once a week 01/04/2023 How often do you attend chur ch or temple services? 1 to 4 times per year 01/04/2023 Do you belong to any clubs o r organizations such as religious groups, unions, fraternal or athletic groups, or school groups? No 01/04/2023 How often do you attend meet ings of the clubs or organizations you belong to? 1 to 4 times per year 01/04/2023 Are you , , di vorced, , never , or living with a partner? 01/04/2023 AUDIT-C Answer Date Recorded Q1: How often do you have a drink containing alc ohol? Monthly or less 01/04/2023 Q2: How many drinks containi ng alcohol do you have on a typical day when you are drinking? 1 or 2 01/04/2023 Q3: How often do you have si x or more drinks on one occasion? Never 01/04/2023 Overall Financial Resource Strain (CARDIA) Answe r Date Recorded How hard is it for you to pa y for the very basics like food, housing, medical care, and heating? Not very hard 08/20/2023 [facility] of Occupat ional Health - Occupational Stress Questionnaire Answer Date Recorded Do you feel stress - tense, restless, nervous, or anxious, or unable to sleep at night because your mind is troubled all the time - these days? Only a little 01/04/2023 Exercise Vital Sign Answer Date Recorde d On average, how many days pe r week do you engage in moderate to strenuous exercise (like a brisk walk)? 0 days 01/04/2023 On average, how many minutes do you engage in exercise at this level? 10 min 01/04/2023 Hunger Vital Sign Answer Date Recorded Within the past 12 months, y ou worried that your food would run out before you got the money to buy more. Never true 08/20/19 24 Within the past 12 months, t he food you bought just didn't last and you didn't have money to get more. Never true 08/20/2023 PRAPARE - Transportation Answer Date Re corded In the past 12 months, has l ack of transportation kept you from medical appointments or from getting medications? No 08/03 In the past 12 months, has l ack of transportation kept you from meetings, work, or from getting things needed for daily living? No 08/20/2023 Housing Stability Vital Sign Answer Luis e Recorded In the last 12 months, was t here a time when you were not able to pay the mortgage or rent on time? No 04/08/2023 In the last 12 months, how many places have you lived? 1 04/08/2023 In the last 12 months, was t here a time when you did not have a steady place to sleep or slept in a assisted (including now)? No 04/08/2023 Housing Stability Vital Sign Answer Luis e Recorded In the last 12 months, was t here a time when you were not able to pay the mortgage or rent on time? No 08/20/2023 In the past 12 months, how m any times have you moved where you were living? 1 08/20/2023 At any time in the past 12 m [facility], were you homeless or living in a assisted (including now)? No 08/20/2023 Sex and Gender Information Value Date Recorded Sex Assigned at Male 12/24/2020 9:15 AM CDT Legal Sex Male 4:42 PM CDT Gender Identity Male 12/24/2020 9:15 AM CDT Sexual Orientation Choose not to disclose 2020 9:15 AM CDT Occupation Industry Job Start Date Job End Date [employer] Not on file Not on file Not on file documented as of this encounter Functional Status * Are you deaf or do you have serious difficulty hearing Answer Date of Assessment Author Status No 08/20/2023 10:04 PM CDT Nat Caceres RN Active * Are you blind or do you have serious difficulty seeing, even when wearing glasses? Answer Date of Assessment Author Status No 08/20/2023 10:04 PM Nat Murray RN Active * Do you have serious difficulty walking or climbing stairs? Answer Date of Assessment Author Status No 08/20/2023 10:04 PM Nat Murray RN Active * Do you have difficulty dressing or bathing? Answer Date of Assessment Author Status No 08/20/2023 10:04 PM CHARUT Nat Caceres RN Active * Because of a physical, mental, or emotional condition, do you have difficulty doing errands alone such as visiting a doctor's office or shopping? Answer Date of Assessment Author Status No 08/20/2023 10:04 PM Nat Murray RN Active documented as of this encounter Mental Status * Because of a physical, mental, or emotional condition, do you have serious difficulty concentrating, remembering, or making decisions? Answer Entry Date Author Status No 08/20/2023 10:04 PM Nat Murray RN Active documented in this encounter Plan of Treatment Upcoming Encounters Date Type Department Care Team (Late st Contact Info) Description 05/26/2024 1:15 PM CDT Appointment [facility] [place] [address] Merline Fair MD [address] [place], [place] [phone] 05/26/2024 1:30 PM CDT [facility] [address] [place] [address] Merline Fair MD [address] [place], [place] [phone] documented as of this encounter Goals Goal Patient Goal Type Associated Problems Recent Progress Patient-Stated? Author Safety Patient/family will have appropriate support at home upon discharge General No Bev Millan RN Safety Patient/family will have appropriate support at home upon discharge Lifestyle No Christel Paredes RN documented as of this encounter Visit Diagnoses Not on filedocumented in this encounter Additional Health Concerns Infection Onset Date Last Indicated Resolved Time COVID-19 Rule Out 02/26/2024 02/26/2024 02/26/2024 5:21 PM FLOAT TENDER COVID-19 Rule Out 02/27/2024 02/27/2024 02/27/2024 4:21 PM FLOAT TENDER documented as of this encounter Care Teams Automatic Clipper And Stripper Relationship Specialty Start Date End Date Ankur Jorge FNP [address] [place] [address] PCP - General Nurse Practitioner Family 12/12/22 Simon Field MD [address] [place] [address] FAMILY PRACTICE 12/23/20 Kiok Snyder MD [address] [place] [phone] Consulting Physician ORTHOPAEDIC SPINE SURGERY 10/03/17 Merline Fair MD [address] [place], [place] [address] Consulting Physician CARDIOVASCULAR DISEASE 12/15/20 Christopher Stone MD [address] [place] [address] Consulting Physician INTERVENTIONAL CARDIOLOGY 06/25/22 documented as of this encounter
--- OUTSIDE RECORDS SUMMARY | 2024-05-23 12:53 | XMS_ITS ---
Author Organization [facility] Care Team Providers Care Dump Truck Operator Name Role Phone KEVIN JAY Unavailable Unavailable LISA GARNER Unavailable Unavailable Allergies and adverse reactions Code CodeSystem Substance Reaction Severity StartDate Concern Status Norvasc Unknown 10/31/2017 active 58915 RXNORM Levofloxacin Unknown 10/31/2017 active Levaquin Unknown 10/31/2017 active 36884 RXNORM Amlodipine Unknown 10/31/2017 active Care Team Name Role Address Phone Organization Dates KEVIN JAY PCP [address] [place] [address], [phone], [place] (Office): : [facility] 10/31/2017 - 11/19/2017 LISA GARNER Attending Physician [address] [place] [address], [phone], [place] (Office): [facility] 10/31/2017 - 11/19/2017 Immunizations Immunization Status Vaccine Details Vaccine Code CodeSystem Luis e Notes TB 2 Step Mantoux Skin Test completed tuberculin skin test; unspecified formulation lotNumber: [id number] expiry: 04/04/2019 Mfg: Tuberculin Aplisol Given 0.1 ml Right Forearm intradermally Step 1 of Multi-step 98 CVX created date: 11/01/2017 consent date: 10/31/2017 administere d date: 11/01/2017 Mental Status Section Date Assessment Total Score Description 11/19/2017 BIMS 15 cognitively int act CAM 0 No delirium ind icated PHQ-9 01 minimal depress ion 11/14/2017 BIMS 15 cognitively int act CAM 0 No delirium ind icated PHQ-9 01 minimal depress ion Problems Problem # Description Date of onset Resolved Date Code CodeSystem Concern Status 1 ARTHRODESIS STATUS 10/31/[address] active 2 DEPENDENCE ON RENAL DIALYSIS 10/31/[address] active 3 DORSALGIA, UNSPECIFIED 10/31/[address] active 4 END STAGE RENAL DISEASE 10/31/[address] active 5 ESSENTIAL (PRIMARY) HYPERTENSION 10/31/[address] active 6 GASTRO-ESOPHAGEAL REFLUX DISEASE WITHOUT ESOPHAGITIS 10/31/[address] active 7 HYPERLIPIDEMIA, UNSPECIFIED 10/31/[address] active 8 MUSCLE WEAKNESS (GENERALIZED) 10/31/[address] active 9 OTHER ABNORMALITIES OF GAIT AND MOBILITY 10/31/[address] active 10 OTHER CHRONIC OSTEOMYELITIS, UNSPECIFIED SITE 10/31/[address] active 11 OTHER LACK OF COORDINATION 10/31/[address] active 12 TYPE 1 DIABETES MELLITUS WITHOUT COMPLICATIONS 10/31/[address] active Reason for Referral No Reasons for Referral Entered Social History Social History Observation Description Start Date End Date Code Code System Current Smoking Status Tobacco smoking consumption unknown 882187642 SNOMED CT Sex Assigned At Male 1980 [address]-6 [facility] Vital Signs Code Code System Vitals Name Values and Units Timing Information 9279-1 [facility] Respiratory Rate Value=18.0 Units=/m in 11/19/2017 8462-4 [facility] Blood Pressure-Diastolic Value=70 Un its=mmHg 11/19/2017 8480-6 [facility] Blood Pressure-Systolic Oiftp=153 Un its=mmHg 11/19/2017 8310-5 [facility] Body Temperature Value=97.3 Units= F 11/19/2017 8867-4 [facility] Heart rate Value=66.0 Units=/min 58034-1 INC Pain Level Value=3.0 11/19/2017 2339-0 [facility] Blood Sugar Zmscg=581.0 Units=mg/dL 11/19/2017 67991-8 [facility] O2 % BldC Oximetry Value=98.0 Units= % 11/08/2017 8302-2 [facility] Height Value=74.0 Units=Inches 11/06/2017 29787-8 [facility] Weight Padtx=869.6 Units=Lbs
--- OUTSIDE RECORDS SUMMARY | 2024-05-23 12:53 | XMS_ITS ---
Author Organization [facility] Address [address] [place] [address] Phone Care Team Providers Care Concession Manager Name Role Phone YUE LOVETT MD Unavailable [phone] ARTURO AMOR DO Unavailable [phone] Problems Includes: Active, inactive, and resolved Problems All Visits Onset Date Resolved Date Provider Condition S tatus Anxiety Disorder Nos Unknown LIAM G NEEL CONTRACTING SPECIALIST-FPA, WARRANT SERVER-BC Active Last Documented On 3 10:42AM ; [facility] Neurogenic Arthritis Unknown LIAM G NEEL CONTRACTING SPECIALIST-FPA, WARRANT SERVER-BC Active Last Documented On 3 10:20AM ; [facility] Coronary Artery Disease Unknown LIAM G KU LP CONTRACTING SPECIALIST-FPA, WARRANT SERVER-BC Active Last Documented On 3 10:35AM ; [facility] Type 2 Diabetes with Diabeti c Neuropathy Unknown LIAM G NEEL CONTRACTING SPECIALIST-FPA, WARRANT SERVER-BC Active Last Documented On 3 12:11PM ; [facility] Type 2 Diabetes with Diabeti c Retinopathy Unknown LIAM G NEEL CONTRACTING SPECIALIST-FPA, WARRANT SERVER-BC Active Last Documented On 3 10:41AM ; [facility] End Stage Renal Disease Unknown ANTHONY SSA G NEEL CONTRACTING SPECIALIST-FPA, WARRANT SERVER-BC Active Last Documented On 3 10:41AM ; [facility] Note: on Dialysis Essential Hypertension Unknown JUAN ALBERTO SA G NEEL CONTRACTING SPECIALIST-FPA, WARRANT SERVER-BC Active Last Documented On 3 10:41AM ; [facility] Plan of Treatment Education and Decision Aids were provided during visit for: Lifestyle education Last Documented On 4 1:11PM ; [facility] Pill Count: Hydrocodone Last Documented On 4 1:15PM ; [facility] Pill Count: Patient did not bring pain medication to appointment for pill count, per policy. Advised in order to continue to safely prescribe opioids, medication must be brought to each appointment Last Documented On 4 1:15PM ; [facility] Lifestyle education Last Documented On 4 8:32AM ; [facility] Pill Count: 38 Hydrocodone Last Documented On 4 9:01AM ; [facility] Lifestyle education Last Documented On 3 11:24AM ; [facility] Pill Count: Hydrocodone Last Documented On 3 10:07AM ; [facility] Pill Count: Hydrocodone Last Documented On 3 10:03AM ; [facility] Pill Count: Hydrocodone Last Documented On 3 9:47AM ; [facility] Pill Count: Hydrocodone Last Documented On 3 10:15AM ; [facility] Assessments Includes: Assessments for all patient encounters Findings Encounter Date [M79.672 - Pain in left foot ] pain in left foot PAIN MANAGEMENT FOLLOW UP with LIAM SHAIKH CONTRACTING SPECIALIST-FPA, WARRANT SERVER-BC 06/27/2023 Last Documented On 4 9:47AM ; [facility] Arthralgia of the left knee/patella/tibia/fibula PAIN MANAGEMENT FOLLOW UP with LIAM SHAIKH CONTRACTING SPECIALIST-FPA, WARRANT SERVER-BC 06/27/2023 Last Documented On 4 9:47AM ; [facility] Arthralgia of the right knee/patella/tibia/fibula PAIN MANAGEMENT FOLLOW UP with LIAM SHAIKH CONTRACTING SPECIALIST-FPA, WARRANT SERVER-BC 06/27/2023 Last Documented On 4 9:47AM ; [facility] End stage renal disease PAIN MANAGEMENT FOLLOW UP with LIAM SHAIKH CONTRACTING SPECIALIST-FPA, WARRANT SERVER-BC 06/27/2023 Last Documented On 4 9:47AM ; [facility] Low back pain PAIN MANAGEMENT FOLL OW UP with LIAM G NEEL CONTRACTING SPECIALIST-FPA, WARRANT SERVER-BC 06/27/2023 Last Documented On 4 9:47AM ; [facility] Neurogenic arthritis PAIN MANAGEMENT FOL LOW UP with LIAM Della NEEL CONTRACTING SPECIALIST-FPA, WARRANT SERVER-BC 06/27/2023 Last Documented On 4 9:47AM ; [facility] Sacroiliitis PAIN MANAGEMENT FOLL OW UP with LIAM Della NEEL CONTRACTING SPECIALIST-FPA, WARRANT SERVER-BC 06/27/2023 Last Documented On 4 9:47AM ; [facility] Type 2 diabetes with diabeti c neuropathy PAIN MANAGEMENT FOLLOW UP with LIAM Della NEEL CONTRACTING SPECIALIST-FPA, WARRANT SERVER-BC 06/27/2023 Last Documented On 4 9:47AM ; [facility] [M79.672 - Pain in left foot ] pain in left foot PAIN MANAGEMENT FOLLOW UP with LIAM Hull NEEL CONTRACTING SPECIALIST-FPA, WARRANT SERVER-BC 05/16/2023 Last Documented On 4 4:12PM ; [facility] End stage renal disease PAIN MANAGEMENT FOLLOW UP with LIAM G NEEL CONTRACTING SPECIALIST-FPA, WARRANT SERVER-BC 05/16/2023 Last Documented On 4 4:12PM ; [facility] Low back pain PAIN MANAGEMENT FOLL OW UP with LIAM Della NEEL CONTRACTING SPECIALIST-FPA, WARRANT SERVER-BC 05/16/2023 Last Documented On 4 4:12PM ; [facility] Neurogenic arthritis PAIN MANAGEMENT FOL LOW UP with LIAM Della NEEL CONTRACTING SPECIALIST-FPA, WARRANT SERVER-BC 05/16/2023 Last Documented On 4 4:12PM ; [facility] Sacroiliitis PAIN MANAGEMENT FOLL OW UP with LIAM Della NEEL CONTRACTING SPECIALIST-FPA, WARRANT SERVER-BC 05/16/2023 Last Documented On 4 4:12PM ; [facility] Type 2 diabetes with diabeti c neuropathy PAIN MANAGEMENT FOLLOW UP with LIAM Della NEEL CONTRACTING SPECIALIST-FPA, WARRANT SERVER-BC 05/16/2023 Last Documented On 4 4:12PM ; [facility] [M79.672 - Pain in left foot ] pain in left foot TELEHEALTH with LIAM GALELP CONTRACTING SPECIALIST-FPA, WARRANT SERVER-BC 02/19/2023 Last Documented On 3 11:27AM ; [facility] End stage renal disease TELEHEALTH with LIAM GALELP CONTRACTING SPECIALIST-FPA, WARRANT SERVER-BC 02/19/2023 Last Documented On 3 11:27AM ; [facility] Low back pain TELEHEALTH with LIAM GALELP A PRN-FPA, WARRANT SERVER-BC 02/19/2023 Last Documented On 3 11:27AM ; [facility] Neurogenic arthritis TELEHEALTH with LIAM Hull K ULP CONTRACTING SPECIALIST-FPA, WARRANT SERVER-BC 02/19/2023 Last Documented On 3 11:27AM ; [facility] Type 2 diabetes with diabeti c neuropathy TELEHEALTH with LIAM Hull NEEL CONTRACTING SPECIALIST-FPA, WARRANT SERVER-BC 02/19/2023 Last Documented On 3 11:27AM ; [facility] [M79.672 - Pain in left foot ] pain in left foot PAIN MANAGEMENT FOLLOW UP with LIAM GALELP CONTRACTING SPECIALIST-FPA, WARRANT SERVER-BC 11/27/2022 Last Documented On 3 10:34AM ; [facility] End stage renal disease PAIN MANAGEMENT FOLLOW UP with LIAM Hull ENEL CONTRACTING SPECIALIST-FPA, WARRANT SERVER-BC 11/27/2022 Last Documented On 3 10:34AM ; [facility] Low back pain PAIN MANAGEMENT FOLL OW UP with LIAM Hull NEEL CONTRACTING SPECIALIST-FPA, WARRANT SERVER-BC 11/27/2022 Last Documented On 3 10:34AM ; [facility] Neurogenic arthritis PAIN MANAGEMENT FOL LOW UP with LIAM Hull NEEL CONTRACTING SPECIALIST-FPA, WARRANT SERVER-BC 11/27/2022 Last Documented On 3 10:34AM ; [facility] Type 2 diabetes with diabeti c neuropathy PAIN MANAGEMENT FOLLOW UP with LIAM Hull NEEL CONTRACTING SPECIALIST-FPA, WARRANT SERVER-BC 11/27/2022 Last Documented On 3 10:34AM ; [facility] [M79.672 - Pain in left foot ] pain in left foot PAIN MANAGEMENT FOLLOW UP with LIAM Hull NEEL CONTRACTING SPECIALIST-FPA, WARRANT SERVER-BC 09/27/2022 Last Documented On 3 1:16PM ; [facility] End stage renal disease PAIN MANAGEMENT FOLLOW UP with LIAM Hull NEEL CONTRACTING SPECIALIST-FPA, WARRANT SERVER-BC 09/27/2022 Last Documented On 3 1:16PM ; [facility] Low back pain PAIN MANAGEMENT FOLL OW UP with LIAM Hull NEEL CONTRACTING SPECIALIST-FPA, WARRANT SERVER-BC 09/27/2022 Last Documented On 3 1:16PM ; [facility] Neurogenic arthritis PAIN MANAGEMENT FOL LOW UP with LIAM Hull NEEL CONTRACTING SPECIALIST-FPA, WARRANT SERVER-BC 09/27/2022 Last Documented On 3 1:16PM ; [facility] Type 2 diabetes with diabeti c neuropathy PAIN MANAGEMENT FOLLOW UP with LIAM Hull NEEL CONTRACTING SPECIALIST-FPA, WARRANT SERVER-BC 09/27/2022 Last Documented On 3 1:16PM ; [facility] [M79.672 - Pain in left foot ] pain in left foot PAIN MANAGEMENT NEW CONSULT with LIAM Hull NEEL CONTRACTING SPECIALIST-FPA, WARRANT SERVER-BC 07/26/2022 Last Documented On 3 12:46PM ; [facility] Cellulitis of left lower leg PAIN MANAGE MENT NEW CONSULT with LIAM Hull NEEL CONTRACTING SPECIALIST-FPA, WARRANT SERVER-BC 07/26/2022 Last Documented On 3 12:46PM ; [facility] Edema PAIN MANAGEMENT NEW CONSULT with LIAM Hull NEEL CONTRACTING SPECIALIST-FPA, WARRANT SERVER-BC 07/26/2022 Last Documented On 3 12:46PM ; [facility] End stage renal disease PAIN MANAGEMENT NEW CONSULT with LIAM G NEEL CONTRACTING SPECIALIST-FPA, WARRANT SERVER-BC 07/26/2022 Last Documented On 3 12:46PM ; [facility] Low back pain PAIN MANAGEMENT NEW CONSULT with LIAM Hull NEEL CONTRACTING SPECIALIST-FPA, WARRANT SERVER-BC 07/26/2022 Last Documented On 3 12:46PM ; [facility] Type 2 diabetes with diabeti c neuropathy PAIN MANAGEMENT NEW CONSULT with VALERY ROBINS 07/26/2022 Last Documented On 3 12:46PM ; [facility] Instructions Includes: Instructions for all patient encounters Education and Decision Aids were provided during visit for: Lifestyle education Last Documented On 4 1:11PM ; [facility] Pill Count: Hydrocodone Last Documented On 4 1:15PM ; [facility] Pill Count: Patient did not bring pain medication to appointment for pill count, per policy. Advised in order to continue to safely prescribe opioids, medication must be brought to each appointment Last Documented On 4 1:15PM ; [facility] Lifestyle education Last Documented On 4 8:32AM ; [facility] Pill Count: 38 Hydrocodone Last Documented On 4 9:01AM ; [facility] Lifestyle education Last Documented On 3 11:24AM ; [facility] Pill Count: Hydrocodone Last Documented On 3 10:07AM ; [facility] Pill Count: Hydrocodone Last Documented On 3 10:03AM ; [facility] Pill Count: Hydrocodone Last Documented On 3 9:47AM ; [facility] Pill Count: Hydrocodone Last Documented On 3 10:15AM ; [facility] Medical Equipment - Implanted Devices Includes: Current and historical Devices No Medical Equipment Recorded Medications Includes: Current and historical Medications Current Medications (continue as prescribed) HYDROcodone-Acetaminophen 5- 325 MG Oral Tablet 08/24/2023 Provider: VALERY ROBINS Diagnosis: Low back pain, unspecified One tablet three to four jamarcus es a day as needed for severe pain [30 day script] Last Documented On 4 4:05PM By LIAM RASMUSSEN ; [facility] Diclofenac Sodium 1% External Gel 06/27/2023 Provider: VALERY HUNT Diagnosis: Pain in right kn ee apply to painful joint as ne eded three times daily Last Documented On 4 1:31PM By LIAM RASMUSSEN ; [facility] Pantoprazole Sodium 40 MG Oral Tablet Delayed Release 02/19/2023 Provider: Diagnosis: Last Documented On 3 10:37AM By LIAM SHAIKH [facility] ; [facility] hydrALAZINE HCl 50 MG Oral Tablet 02/11/2023 Provide r: Diagnosis: Last Documented On 3 10:38AM By LIAM NEEL [facility] ; [facility] Losartan Potassium 50 MG Oral Tablet 02/11/2023 Prov ider: Diagnosis: Last Documented On 3 10:37AM By LIAM SHAIKH [facility] ; [facility] Eliquis 5 MG Oral Tablet 02/02/2023 Provider: Diagnosis: Last Documented On 3 10:37AM By LIAM SHAIKH [facility] ; [facility] Furosemide 80 MG Oral Tablet 02/02/2023 Provider: Diagnosis: Last Documented On 3 10:37AM By LIAM SHAIKH [facility] ; [facility] Amiodarone HCl 200 MG Oral Tablet 01/23/2023 Provide r: Diagnosis: Last Documented On 3 10:37AM By LIAM SHAIKH [facility] ; [facility] Atorvastatin Calcium 80 MG Oral Tablet 01/19/2023 Pr ovider: Diagnosis: Last Documented On 3 10:37AM By LIAM SHAIKH [facility] ; [facility] Brilinta 90 MG Oral Tablet 01/06/2023 Provider: Diagnosis: Last Documented On 3 10:37AM By LIAM SHAIKH [facility] ; [facility] Isosorbide Mononitrate ER 30 MG Oral Tablet Extended Release 24 Hour 01/01/2023 Provider: Diagnosis: Last Documented On 3 10:37AM By LIAM SHAIKH [facility] ; [facility] Cinacalcet HCl 90 MG Oral Tablet 07/26/2022 Provider : Diagnosis: Via Dialysis 3 times a week. Last Documented On 3 12:38PM By LIAM SHAIKH [facility] ; [facility] Calcitonin (Drumore) 200 UNIT/ML Injection Solution Provider: Diagnosis: VIA Dialysis Last Documented On 3 12:38PM By LIAM RASMUSSEN ; [facility] Nitroglycerin 0.4 MG Sublingual Tablet Sublingual 07/04 Provider: Diagnosis: As needed. Last Documented On 3 12:38PM By LIAM RASMUSSEN ; [facility] Sevelamer Carbonate 800 MG Oral Tablet 07/26/2022 Pr ovider: Diagnosis: as needed. Last Documented On 3 12:38PM By LIAM RASMUSSEN ; [facility] Heparin Na (Pork) Lock Flsh PF 100 UNIT/ML Intravenous Solution 07/26/2022 Provider: Diagnosis: 600 unit / hr Via Dialysis Last Documented On 3 12:38PM By LIAM RASMUSSEN ; [facility] Mircera 50 MCG/0.3ML Injection Solution Prefilled Syri nge 07/26/2022 Provider: Diagnosis: Every 2 weeks via dialysis Last Documented On 3 12:38PM By LIAM RASMUSSEN ; [facility] NovoLOG FlexPen 100 UNIT/ML Subcutaneous Solution Pen-injector 05/17/2022 Provider: ARTURO Sanabria Diagnosis: As directed. Last Documented On 3 12:38PM By LIAM RASMUSSEN ; [facility] Past Medications on file HYDROcodone-Acetaminophen 5- 325 MG Oral Tablet 07/24/2023 - 08/24/2023 Provider: VALERY ROBINS Diagnosis: Low back pain, unspecified One tablet three to four jamarcus es a day as needed for severe pain [30 day script] Last Documented On 4 3:58PM By LIAM RASMUSSEN ; [facility] HYDROcodone-Acetaminophen 5- 325 MG Oral Tablet 06/25/2023 - 07/24/2023 Provider: VALERY ROBINS Diagnosis: Low back pain, unspecified One tablet three to four jamarcus es a day as needed for severe pain [30 day script] Last Documented On 4 1:36PM By LIAM RASMUSSEN ; [facility] HYDROcodone-Acetaminophen 5- 325 MG Oral Tablet 05/25/2023 - 06/25/2023 Provider: VALERY ROBINS Diagnosis: Low back pain, unspecified One tablet four times a day as needed for severe pain Last Documented On 4 10:31AM By LIAM MANUELTOM ; [facility] HYDROcodone-Acetaminophen 5- 325 MG Oral Tablet 04/27/2023 - 05/25/2023 Provider: VALERY ROBINS Diagnosis: Low back pain, unspecified One tablet three times a day as needed for severe pain Last Documented On 4 1:48PM By LIAM RASMUSSEN ; [facility] Polymyxin B-Trimethoprim 92505-4.1 UNIT/ML-% Ophthalmic Solution 04/27/2023 - 06/27/2023 Provider: VALERY ROBINS Diagnosis: 2 drops to affected eye three times daily Last Documented On 4 1:26PM By LIAM MANUELTOM ; [facility] HYDROcodone-Acetaminophen 5- 325 MG Oral Tablet 03/30/2023 - 04/27/2023 Provider: VALERY ROBINS Diagnosis: Low back pain, unspecified One tablet three times a day as needed for severe pain Last Documented On 4 2:18PM By LIAM RASMUSSEN ; [facility] HYDROcodone-Acetaminophen 5- 325 MG Oral Tablet 2023 - 03/30/2023 Provider: VALERY ROBINS Diagnosis: Low back pain, unspecified One tablet three times a day as needed for severe pain Last Documented On 4 5:06PM By LIAM MANUELTOM ; [facility] HYDROcodone-Acetaminophen 5- 325 MG Oral Tablet 01/29/2023 - 2023 Provider: VALERY ROBINS Diagnosis: Low back pain, unspecified One tablet three times a day as needed for severe pain Last Documented On 3 3:10PM By LIAM MANUELTOM ; [facility] HYDROcodone-Acetaminophen 5- 325 MG Oral Tablet 12/25/2022 - 01/29/2023 Provider: MAR ROBINS-BC Diagnosis: Low back pain, unspecified One tablet three times a day as needed for severe pain Last Documented On 3 8:31AM By LIAM RASMUSSEN ; [facility] HYDROcodone-Acetaminophen 5- 325 MG Oral Tablet 11/24/2022 - 12/25/2022 Provider: LIAM SHAIKH APRN-ANN BUNCHP-BC Diagnosis: Low back pain, unspecified One tablet three times a day as needed for severe pain Last Documented On 3 2:41PM By LIAM RASMUSSEN ; [facility] HYDROcodone-Acetaminophen 5- 325 MG Oral Tablet 10/26/2022 - 11/24/2022 Provider: MAR ROBINS-TOM Diagnosis: Low back pain, unspecified One tablet three times a day as needed for severe pain Last Documented On 3 3:04PM By LIAM RASMUSSEN ; [facility] HYDROcodone-Acetaminophen 5- 325 MG Oral Tablet 09/27/2022 - 10/26/2022 Provider: MAR ROBINS-TOM Diagnosis: Low back pain, unspecified One tablet three times a day Last Documented On 3 4:34PM By LIAM RASMUSSEN ; [facility] HYDROcodone-Acetaminophen 5- 325 MG Oral Tablet 09/22/2022 - 09/27/2022 Provider: LIAM SHAIKH APRN-FPANN CordovaP-BC Diagnosis: Low back pain, unspecified One tablet 2-3 times daily a s needed, must last 30 days Last Documented On 3 10:37AM By LIAM RASMUSSEN ; [facility] HYDROcodone-Acetaminophen 5- 325 MG Oral Tablet 08/25/2022 - 09/21/2022 Provider: LIAM SHAIKH APRN-ANN BUNCHP-BC Diagnosis: Low back pain, unspecified One tablet 2-3 times daily a s needed, must last 30 days Last Documented On 3 1:05PM By LIAM RASMUSSEN ; [facility] HYDROcodone-Acetaminophen 5- 325 MG Oral Tablet 07/26/2022 - 08/24/2022 Provider: VALERY ROBINS Diagnosis: Low back pain, unspecified as directed One tablet 2-3 t imes daily as needed, must last 30 days Last Documented On 3 9:16AM By LIAM RASMUSSEN ; [facility] Cephalexin 500 MG Oral Capsule 07/26/2022 - 09/27/2022 Provider: VALERY ROBINS Diagnosis: Cellulitis of le ft lower limb 1 capsule three times a day Last Documented On 3 10:04AM By Ellsi HADDAD ; [facility] HYDROcodone-Acetaminophen 5-325 MG Oral Tablet 0 07/21/2022 - 07/26/2022 Provider: Diagnosis: 1 every 6 hours as needed for pain. Last Documented On 3 4:22PM By LIAM RASMUSSEN ; [facility] hydrALAZINE HCl 25 MG Oral Tablet 05/11/2022 - 023 Provider: Diagnosis: Last Documented On 3 10:38AM By LIAM RASMUSSEN ; [facility] Aspirin Low Dose 81 MG Oral Tablet Delayed Release 05/11/2022 - 02/19/2023 Provider: Diagnosis: Last Documented On 3 10:08AM By Lakisha HADDAD ; [facility] hydrALAZINE HCl 100 MG Oral Tablet 04/15/2022 - 2022 Provider: Diagnosis: Last Documented On 3 10:38AM By LIAM RASMUSSEN ; [facility] Metoprolol Succinate ER 100 MG Oral Tablet Extended Release 24 Hour 04/10/2022 - 02/19/2023 Provider: Diagnosis: Last Documented On 3 10:09AM By Lakisha HADDAD ; [facility] HYDROcodone-Acetaminophen 5- 325 MG Oral Tablet 03/21/2022 - 08/25/2022 Provider: ARTURO AMOR DO Diagnosis: Last Documented On 3 9:15AM By LIAM SHAIKH [facility] ; [facility] cloNIDine HCl 0.3 MG Oral Tablet 11/15/2021 - 02/20/20 Provider: Diagnosis: Last Documented On 3 10:08AM By Lakisha HADDAD ; [facility] Atorvastatin Calcium 40 MG Oral Tablet 10/20/2021 - Provider: Diagnosis: Last Documented On 3 10:38AM By LIAM SHAIKH [facility] ; [facility] Basaglar KwikPen 100 UNIT/ML Subcutaneous Solution Pen-injector 08/29/2021 - 11/27/2022 Provider: HEAVENLY MANUEL Diagnosis: As directed. Last Documented On 3 10:07AM By Lakisha HADDAD ; [facility] Medications Administered Includes: Administered Medications in patient's chart No Administered Medications Recorded Vital Signs Includes: Vital Signs from 05/24/2023 through 05/23/2024 Vital Name 06/27/2023 01:18P Blood Pressure Sitting R 124/68 BP Cuff Size Regular Pulse Rate-Sitting (bpm) 68 Temp-Temporal 96.8 Height (in) 72 Weight (lb) 226 Body Mass Index 30.7 Body Surface Area 2.2 Pain Level 3 Oxygen Saturation (%) 100 Last Documented: On 06/27/2023 1:19PM ; [facility] Results Includes: Results from 05/24/2023 through 05/23/2024 No Results Recorded For Specified Dates History of Present Illness History of Present Illness not supported for this document type No History of Present Illness Recorded Social History Description Last Updated Tobacco non-user 05/16/2023 Last Documented On 4 4:12PM ; [facility] Amount of sleep 02/19/2023 Last Documented On 3 11:27AM ; [facility] Current smoker 02/19/2023 Last Documented On 3 11:27AM ; 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 Alcohol 07/26/2022 Last Documented On 3 12:46PM ; [facility] Amount of alcohol per day: 2-3 a month 0 07/26/2022 Last Documented On 3 12:46PM ; [facility] Difficulty walking 07/26/2022 Last Documented On 3 12:46PM ; [facility] Drug use 07/26/2022 Last Documented On 3 12:46PM ; [facility] Type: Thc gummies 07/26/2022 Last Documented On 3 12:46PM ; [facility] [facility] Smoking Status Unknown Procedures and Surgical History Surgical History Last Updated No Pacemaker 07/26/2022 Last Documented On 3 12:46PM ; [facility] Medical History Includes: Medical History in patient's chart Description Last Updated No Pacemaker Cardiac Stent 02/19/2023 Last Documented On 3 11:27AM ; [facility] No Pain Pump Insulin Pump ~Hepatomegaly 11/27/2022 Last Documented On 3 10:34AM ; [facility] Please list all illnesses/co nditions you have been diagnosed with: Renal failure, CHF, ,HTN, IDDM, aortic aneurysm, arthritis, retinopathy, hearing loss, neuropathy, 10/03/2022 Last Documented On 3 1:16PM ; [facility] Please list all surgeries: L eft small toe amputation 2014 ~retina left and right 2014 &16 ~fistula 2017 x2 2020 x1 ~peritoneal port insertion and removal 2017& 2018 10/03/2022 Last Documented On 3 1:16PM ; 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 No Spinal cord stimulator 07/26/2022 Last Documented On 3 12:46PM ; [facility] Denies a fear of falling. 07/26/2022 Last Documented On 3 12:46PM ; [facility] Has had no fall in the last 12 months. 0 07/26/2022 Last Documented On 3 12:46PM ; [facility] Family History Includes: Family History in patient's chart Description Last Updated Family history of Arthritis 07/26/2022 Last Documented On 3 12:46PM ; [facility] Family history of ischemic heart disease 07/26/2022 Last Documented On 3 12:46PM ; [facility] Family history of stroke/paralysis 07/26 Last Documented On 3 12:46PM ; [facility] Maternal history of family history of is chemic heart disease 07/26/2022 Last Documented On 3 12:46PM ; [facility] Maternal history of family history of ki dney disease 07/26/2022 Last Documented On 3 12:46PM ; [facility] Maternal history of stroke/paralysis Last Documented On 3 12:46PM ; [facility] Paternal history of Arthritis 07/26/2022 Last Documented On 3 12:46PM ; [facility] Paternal history of family history of is chemic heart disease 07/26/2022 Last Documented On 3 12:46PM ; [facility] Review of Systems Review of Systems not supported for this document type No Review of Systems Recorded Mental Status No Mental Status Recorded Functional Status No Functional Status Recorded Physical Exam Physical Exam not supported for this document type No Physical Exam Recorded Allergies Includes: Active, inactive, and resolved Allergies Substance Type Reaction Onset Date Resolved Date Statu s Morphine Sulfate Allergy 07/26/2022 Ac tive Last Documented On 4 1:15PM ; [facility] Levaquin Allergy 07/26/2022 Active Last Documented On 4 1:15PM ; [facility] Doxycycline Hyclate Allergy 06/27/2023 Active Last Documented On 4 1:15PM ; [facility] Coreg Allergy 07/26/2022 Active Last Documented On 4 1:15PM ; [facility] Carvedilol Allergy 06/27/2023 Active Last Documented On 4 1:17PM ; [facility] Encounters Includes: Encounters from 05/24/2023 through 05/23/2024 Encounter Provider Location Date Check-In Time Check-Out Time Diagnosis RX ISSUE/REFILL LIAM GALELP CONTRACTING SPECIALIST-FPA [employer] 08/24/1906/27/2023 1:28PM 06/27/2023 11:59PM RX ISSUE/REFILL LIAM GALELP CONTRACTING SPECIALIST-FPArt [employer] 07/24/19 24 06/27/2023 1:26PM 06/27/2023 11:59PM PAIN MANAGEMENT FOLLOW UP LIAM Hull NEEL CONTRACTING SPECIALIST-FPA, WARRANT SERVER-[facility] 06/27/19 1:10PM 1:36PM Sacroiliitis, End Stage Renal Disease,Type 2 Diabetes with Diabetic Neuropathy,Ne urogenic Arthritis,Edu sopathy Low Back Pain,Limb Pain Left Foot,Arthralg ia - Knee / Patella / Tibia / Fibula Right,Arthral jennifer - Knee / Patella / Tibia / Fibula Left RX ISSUE/REFILL LIAM Hull NEEL CONTRACTING SPECIALIST-FP[facility] [place] 06/25/1905/16/2023 9:53AM 05/16/2023 11:59PM RX ISSUE/REFILL LIAM GALELP CONTRACTING SPECIALIST-FPA, [employer]ER[employer] 05/25/1905/16/2023 1:27PM 05/16/2023 11:59PM Insurance Includes: Active Insurance Policies Plan Name Member ID Group # Subscriber Relationship Effect jesus Dates 1 - [facility] [id number] NIURKA CROCKER III Self Clinical Notes Includes: Signed Clinical Notes starting from 03/24/2022 * Progress note Date Encounter Last Documented by 08/24/2023 RX ISSUE/REFILL Last documented on 08/24/2023; 3:58 PM, LIAM GALELP CONTRACTING SPECIALIST-FPA, WARRANT SERVER-BC; [facility] Active Problems & Conditions - Anxiety Disorder Nos - Coronary Artery Disease - End Stage Renal Disease - Essential Hypertension - Neurogenic Arthritis - Type 2 Diabetes with Diabetic Neuropathy - Type 2 Diabetes with Diabetic Retinopathy Chief Complaint Phone Call - Chief Concern: Reason for call:RX REFILL Patient is requesting a refill on HYDROCODONE 5/325 ~How is medication taken? 3- 4 DAILY ~How many are left? 16 Risk Assessment Score: LOW ~[place]:07/27/23 Last Office Visit: 06/27/23 ~ pt phone # for Return call: ~Last Drug Screen:09/27/22 ~Date/Initials: 08/24/23 CB. Current Medication - Amiodarone HCl 200 MG Oral Tablet One tablet daily 90 days, 0 refills - Atorvastatin Calcium 80 MG Oral Tablet 90 days, 0 refills - Brilinta 90 MG Oral Tablet One tablet twice a day 3 days, 0 refills - Calcitonin (Drumore) 200 UNIT/ML Injection Solution VIA Dialysis, 0 days, 0 refills - Cinacalcet HCl 90 MG Oral Tablet Via Dialysis 3 times a week., 0 days, 0 refills - Diclofenac Sodium 1% External Gel apply to painful joint as needed three times daily, 30 days, 2 refills - Eliquis 5 MG Oral Tablet One tablet twice a day 30 days, 0 refills - Furosemide 80 MG Oral Tablet One tablet daily 28 days, 0 refills - Heparin Na (Pork) Lock Flsh PF 100 UNIT/ML Intravenous Solution 600 unit / hr Via Dialysis, 0 days, 0 refills - hydrALAZINE HCl 50 MG Oral Tablet 30 days, 0 refills - HYDROcodone-Acetaminophen 5-325 MG Oral Tablet One tablet three to four times a day as needed for severe pain [30 day script], 30 days, 0 refills - Isosorbide Mononitrate ER 30 MG Oral Tablet Extended Release 24 Hour One tablet daily 30 days, 0 refills - Losartan Potassium 50 MG Oral Tablet One tablet daily 30 days, 0 refills - Mircera 50 MCG/0.3ML Injection Solution Prefilled Syringe Every 2 weeks via dialysis, 0 days, 0 refills - Nitroglycerin 0.4 MG Sublingual Tablet Sublingual As needed., 0 days, 0 refills - NovoLOG FlexPen 100 UNIT/ML Subcutaneous Solution Pen-injector As directed., 100 days, 0 refills - Pantoprazole Sodium 40 MG Oral Tablet Delayed Release 1 Capsule every morning 0 days, 0 refills - Sevelamer Carbonate 800 MG Oral Tablet as needed., 0 days, 0 refills Past Medical/Surgical History Reported: Surgery T10-L1 Fusion secondary to Osteomyelitis. Please list all illnesses/conditions you have been diagnosed with: Renal failure, CHF, ,HTN, IDDM, aortic aneurysm, arthritis, retinopathy, hearing loss, neuropathy, and Please list all surgeries: Left small toe amputation 2014 retina left and right 2015 &16 fistula 2018 x2 2020 x1 peritoneal port insertion and removal 2017& 2018. Medical: No Spinal cord stimulator and no Pain Pump Insulin Pump Hepatomegaly. Surgical / Procedural: No Pacemaker Cardiac Stent and no Pacemaker. Physical Trauma: Has had no fall in the last 12 months. and Denies a fear of falling. Social History Difficulty walking. Behavioral: Amount of alcohol per day: 2-3 a month. Tobacco use: Current smoker and tobacco non-user. Alcohol: Alcohol. Drug Use: Drug use Type: Thc gummies. Habits: Amount of sleep. 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 Allergies - Carvedilol - Coreg - Doxycycline Hyclate - Levaquin - Morphine Sulfate Family History Arthritis Stroke/paralysis Ischemic heart disease Paternal: Arthritis Ischemic heart disease Maternal: Stroke/paralysis Ischemic heart disease Kidney disease Plan StartCited - Low back pain, unspecified HYDROcodone-Acetaminophen 5-325 MG tablet One tablet three to four times a day as needed for severe pain [30 day script], 30 days, 0 refills EndCited Care Team - YUE LOVETT MD - Gaming Associate - ARTURO AMOR DO - Primary Care Health Reminders - Assess Tobacco Use satisfied 08/24/2023. * Progress note Date Encounter Last Documented by 07/24/2023 RX ISSUE/REFILL Last documented on 07/24/2023; 1:36 PM, LIAM SHAIKH APRN-FPA, WARRANT SERVER-BC; [facility] Active Problems & Conditions - Anxiety Disorder Nos - Coronary Artery Disease - End Stage Renal Disease - Essential Hypertension - Neurogenic Arthritis - Type 2 Diabetes with Diabetic Neuropathy - Type 2 Diabetes with Diabetic Retinopathy Chief Complaint Phone Call - Chief Concern: Reason for call:RX REFILL Patient is requesting a refill on HYDROCODONE 5/325 ~How is medication taken? QID ~How many are left?18 Risk Assessment Score: LOW ~[place]MP:06/27/23 Last Office Visit: 06/27/23 ~ pt phone # for Return call: ~Last Drug Screen:09/27/22 ~Date/Initials: 07/24/23 CB. Current Medication - Amiodarone HCl 200 MG Oral Tablet One tablet daily 90 days, 0 refills - Atorvastatin Calcium 80 MG Oral Tablet 90 days, 0 refills - Brilinta 90 MG Oral Tablet One tablet twice a day 3 days, 0 refills - Calcitonin (Drumore) 200 UNIT/ML Injection Solution VIA Dialysis, 0 days, 0 refills - Cinacalcet HCl 90 MG Oral Tablet Via Dialysis 3 times a week., 0 days, 0 refills - Diclofenac Sodium 1% External Gel apply to painful joint as needed three times daily, 30 days, 2 refills - Eliquis 5 MG Oral Tablet One tablet twice a day 30 days, 0 refills - Furosemide 80 MG Oral Tablet One tablet daily 28 days, 0 refills - Heparin Na (Pork) Lock Flsh PF 100 UNIT/ML Intravenous Solution 600 unit / hr Via Dialysis, 0 days, 0 refills - hydrALAZINE HCl 50 MG Oral Tablet 30 days, 0 refills - HYDROcodone-Acetaminophen 5-325 MG Oral Tablet One tablet three to four times a day as needed for severe pain [30 day script], 30 days, 0 refills - Isosorbide Mononitrate ER 30 MG Oral Tablet Extended Release 24 Hour One tablet daily 30 days, 0 refills - Losartan Potassium 50 MG Oral Tablet One tablet daily 30 days, 0 refills - Mircera 50 MCG/0.3ML Injection Solution Prefilled Syringe Every 2 weeks via dialysis, 0 days, 0 refills - Nitroglycerin 0.4 MG Sublingual Tablet Sublingual As needed., 0 days, 0 refills - NovoLOG FlexPen 100 UNIT/ML Subcutaneous Solution Pen-injector As directed., 100 days, 0 refills - Pantoprazole Sodium 40 MG Oral Tablet Delayed Release 1 Capsule every morning 0 days, 0 refills - Sevelamer Carbonate 800 MG Oral Tablet as needed., 0 days, 0 refills Past Medical/Surgical History Reported: Surgery T10-L1 Fusion secondary to Osteomyelitis. Please list all illnesses/conditions you have been diagnosed with: Renal failure, CHF, ,HTN, IDDM, aortic aneurysm, arthritis, retinopathy, hearing loss, neuropathy, and Please list all surgeries: Left small toe amputation 2014 retina left and right 2015 &16 fistula 2017 x2 2020 x1 peritoneal port insertion and removal 2017& 2018. Medical: No Spinal cord stimulator and no Pain Pump Insulin Pump Hepatomegaly. Surgical / Procedural: No Pacemaker Cardiac Stent and no Pacemaker. Physical Trauma: Has had no fall in the last 12 months. and Denies a fear of falling. Social History Difficulty walking. Behavioral: Amount of alcohol per day: 2-3 a month. Tobacco use: Current smoker and tobacco non-user. Alcohol: Alcohol. Drug Use: Drug use Type: Thc gummies. Habits: Amount of sleep. 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 Allergies - Carvedilol - Coreg - Doxycycline Hyclate - Levaquin - Morphine Sulfate Family History Arthritis Stroke/paralysis Ischemic heart disease Paternal: Arthritis Ischemic heart disease Maternal: Stroke/paralysis Ischemic heart disease Kidney disease Plan StartCited - Low back pain, unspecified HYDROcodone-Acetaminophen 5-325 MG tablet One tablet three to four times a day as needed for severe pain [30 day script], 30 days, 0 refills EndCited Care Team - YUE LOVETT MD - Gaming Associate - ARTURO AMOR DO - Primary Care Health Reminders - Assess Tobacco Use satisfied 07/24/2023. * Progress note Date Encounter Last Documented by 06/27/2023 PAIN MANAGEMENT FOLLOW UP Last d ocumented on 06/28/2023; 9:47 AM, LIAMDIDI SHAIKH CONTRACTING SPECIALIST-FPA, WARRANT SERVER-BC; [facility] Active Problems & Conditions - Anxiety Disorder Nos - Coronary Artery Disease - End Stage Renal Disease - Essential Hypertension - Neurogenic Arthritis - Type 2 Diabetes with Diabetic Neuropathy - Type 2 Diabetes with Diabetic Retinopathy Chief Complaint The Chief Complaint is: Diagnostic and therapeutic Right SI injection 06/13/2023 90 % 50 ongoing. History of Present Illness PHQ-9 Score: 0 Date:05/16/2023 BPI Score: Date: Oswestry Score: 50% Date:05/16/2023 SOAPP-R Score: 7 Date:05/16/2023 Pain Location: Lumbar, sacrococcygeal, and BLT knee Quality: Sharp, stabbing, aches, sore, shooting Radiation: Down right leg. Severity: Timing: constant in back. Associated Sx: Weakness, Aggravating Factors:Standing or laying or long period, Alleviating Factors:massage, hot shower, Past Tx: R SI joint injection 06/13/23 NIURKA CROCKER is a 43 year old male. - Allergy list reviewed - Problem list reviewed - Medication reconciliation performed - Medication list reviewed - Prescription Drug Monitoring Program website checked. 05/27/2023 - How much of the medication are you taking a day? 3/day. ' - Last dose of medication? Today - Pain in AM - Pain in PM - Primary pain location Spime t10-l1 area - Primary pain duration Several hours a day - Secondary pain duration Intermittent - Secondary pain location Left knee - Pain is shooting - Pain is pressure like - Pain is tight - Relieved by leaning forward - Relieved by massage - Pain aggravated standing - Pain aggravated by walking - Pain aggravated by working - No vertigo - Last drug screen appropriate 05/16/2023 Discussion: FU after R SI joint injection. He states it has been amazing . States even at its worse it is tolerable. He is very pleased with results. His blood sugars went up some but not over 300 and it was a gradual increase that his insulin pump was able to correct. Knees are hurting him. X-rays unremarkable. Discussed trial of Diclofenac gel. Continues on Hydrocodone as needed for his chronic back and joint pain to multiple locations. [place] Rx monitoring and UDS have been consistent. He continues under the care of multiple specialists. PRIOR VISIT: Here for routine FU for medication management for chronic pain. Patient states about 45 days ago he got up and couldn't get out of bed because his R hip was hurting so bad he couldn't move. His kids had to help him get dressed and took him to the ER. In the ER he had a hip x-ray and was told it looked fine. This lasted about a week and then slowly improved on its own but has never went away. The same symptoms happened again 2 weeks ago where he couldn't move. He is still having difficulty moving around and having pain. He states yesterday it was on both sides and causing him to shuffle because his ROM was poor and it hurt so bad. No leg symptoms. He has been using Biofreeze and a TENS unit. Pain is worse with standing, going from sitting to standing, and with walking. Going from sitting to standing is when he has the most pain. Pain shoots into groin when he goes to take a step. Exam consistent with possible SI joint pathology. We discussed getting SI joint injection as both a diagnostic and therapeutic procedure. PRIOR VISIT: FU for medication management for chronic pain to back and feet. New order needed for CT of the lumbar spine due to old one being . He is awaiting scheduling. He was recently found to be in A Fibb w/ RVR and a stress test showed a blockage. A cardiac cath was done and he had one stent placed in the RAC. He has blockages in the LAD and another vessel that are being monitored and treated w/ medication right now. He is in cardiac rehab. His foot surgery has been put on hold because of the anti-coagulant medications that he will need to be on for a year. He continues under the care of Podiatry and waiting for his brace to be adjusted. Pain symptoms are stable. No sores/open wounds. [place] Rx monitoring and UDS have been consistent. PRIOR VISIT: Seeing a new overnight caregiver in [place] [address] [place] and planning on surgery of the L foot for Charcot foot next May. He will be non weight bearing for a few months post surgery so he is waiting until his children graduate high school in order to help him. He is waiting for an [place] brace right now and continues in a walking boot. He has not had the CT Lumbar spine yet. I gave him the scheduling number to call to get this scheduled. PRIOR VISIT: Here for routine follow up. I was able to obtain imaging from the hospital showing transverse process fractures at L1, L2, L3 back in May. He has not had any repeat imaging since his fall. Regarding his left foot pain he has since followed up with the overnight caregiver and has a cast on for severe neuropathic arthritis. The podiatry notes were reviewed. At this time I would recommend getting repeat imaging of his lumbar spine to assess healing. Consider PT when the issue with his left foot and ankle are stable. FIRST VISIT 07/06/22: Patient referred by his primary care provider for chronic pain to multiple locations. He has a new acute concern that started about three weeks ago. He was at work when he started to feel some burning type of pain in his left foot. After a few hours the pain became severe so he went to the emergency room. A CT and x- ray were negative per the patient's report. He saw his primary care Dr for this last Sunday and was told to follow-up with his overnight caregiver. He does not yet have an appointment. He would have intermittent swelling to the foot and ankle by the end of the day that would go down with elevation of the foot initially. However, in the last four days the swelling has worsened, is constant, and he now has redness to the left lower leg. He denies any systemic symptoms of infection. He has no previous history of cancer, DVT, PE, surgery, or recent immobilization. He does not smoke. He has varicosities noted to the lower legs. No CP or SOB. No palpitations. We discussed starting him on antibiotics for cellulitis and getting an ultrasound to rule out DVT. He should follow-up with podiatry about the foot pain as recommended by his primary care provider. He should follow-up with his primary care provider about the increased swelling and redness in the lower leg as well. He was actually referred for low back pain which is not bothering him as much as the acute issue is, described above. However, he has had this pain since a fall in May of this year. He passed out while in the shower. He sustained fractures to the left side of the L1, L2, and L3 vertebrae [?transverse process fractures; no imaging and pt not sure]. He was evaluated at the [facility], cleared, stabilized, and transferred to [facility]. He states at [facility] they told him the hardware to the thoracic and upper lumbar spine suffered no complications. However, they noted the fractures. He has previous fusion at T10- L1 in 2019. He reports a dialysis catheter infection that was treated for several weeks and then he noted back pain that was severe in nature about three weeks later. He presented to the emergency room multiple times within one week. They noted that he had osteomyelitis in the spine. He was started on IV antibiotics. They did a surgical debridement with fusion. About three weeks later while at the rehab facility he had significant drainage from the surgical incision and they had to go back in and clean out this area again and restart antibiotics. Standing and walking for long periods of time makes his low back pain worse. Stretching and massage help some. He has never had physical therapy for his low back. Tylenol, Lidocaine patches, and TENS unit have not been beneficial. NSAIDs are contraindicated in the setting of end-stage renal disease. He utilizes Hydrocodone twice daily for pain, three times daily on the days that he works. 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 He also has other areas that bother him but would like to concentrate on his low back pain after getting the acute issue of the left leg and foot resolved. We will start him in physical therapy for his low back. I will see him back in two months after obtaining records and we will discuss further interventional options. Imaging: All relevant imaging available was personally reviewed with the patient today with the following tests and results noted: CT Lumbar Spine 05/26/22 Impression: Acute fractures L1, L2, and L3 transverse processes. No additional acute fracture. Partially visualized posterior fusion hardware of the thoracolumbar [T11-L1] interval with minimal L1 pedicle screw loosening. CT Thoracic Spine 05/25/22 Impression: No evidence to suggest acute fracture or traumatic subluxation of the thoracic spine. Nondisplaced left L1 transverse process fracture and minimally displaced L2 left transverse process fracture. Surgical changes of T10- L1 posterior fusion. XRay Thoracolumbar spine 11/23/17 Posterior fusion T10-L1. Disc spacer T11-12. Multilevel spondylosis. Mild to moderate facet arthropathy of the lower lumbar spine. XRay bilateral Knees 06/22/23 Tiny marginal spurring from medial aspect of the medial plateau of both tibias. No acute bony abnormality. CT L Hip 06/22/23 Mild arthritic changes. Small thin sclerotic wall cyst in the posterior bony acetabular labrum. Small joint effusion. Current Medication - Amiodarone HCl 200 MG Oral Tablet One tablet daily 90 days, 0 refills - Atorvastatin Calcium 80 MG Oral Tablet 90 days, 0 refills - Brilinta 90 MG Oral Tablet One tablet twice a day 3 days, 0 refills - Calcitonin (Drumore) 200 UNIT/ML Injection Solution VIA Dialysis, 0 days, 0 refills - Cinacalcet HCl 90 MG Oral Tablet Via Dialysis 3 times a week., 0 days, 0 refills - Eliquis 5 MG Oral Tablet One tablet twice a day 30 days, 0 refills - Furosemide 80 MG Oral Tablet One tablet daily 28 days, 0 refills - Heparin Na (Pork) Lock Flsh PF 100 UNIT/ML Intravenous Solution 600 unit / hr Via Dialysis, 0 days, 0 refills - hydrALAZINE HCl 50 MG Oral Tablet 30 days, 0 refills - HYDROcodone-Acetaminophen 5-325 MG Oral Tablet One tablet three to four times a day as needed for severe pain [30 day script], 30 days, 0 refills - Isosorbide Mononitrate ER 30 MG Oral Tablet Extended Release 24 Hour One tablet daily 30 days, 0 refills - Losartan Potassium 50 MG Oral Tablet One tablet daily 30 days, 0 refills - Mircera 50 MCG/0.3ML Injection Solution Prefilled Syringe Every 2 weeks via dialysis, 0 days, 0 refills - Nitroglycerin 0.4 MG Sublingual Tablet Sublingual As needed., 0 days, 0 refills - NovoLOG FlexPen 100 UNIT/ML Subcutaneous Solution Pen-injector As directed., 100 days, 0 refills - Pantoprazole Sodium 40 MG Oral Tablet Delayed Release 1 Capsule every morning 0 days, 0 refills - Sevelamer Carbonate 800 MG Oral Tablet as needed., 0 days, 0 refills Past Medical/Surgical History Reported: Surgery T10-L1 Fusion secondary to Osteomyelitis. Please list all illnesses/conditions you have been diagnosed with: Renal failure, CHF, ,HTN, IDDM, aortic aneurysm, arthritis, retinopathy, hearing loss, neuropathy, and Please list all surgeries: Left small toe amputation 2013 retina left and right 2014 &16 fistula 2018 x2 2020 x1 peritoneal port insertion and removal 2017& 2018. Medical: No Spinal cord stimulator and no Pain Pump Insulin Pump Hepatomegaly. Surgical / Procedural: No Pacemaker Cardiac Stent and no Pacemaker. Physical Trauma: Has had no fall in the last 12 months. and Denies a fear of falling. Social History Difficulty walking. Behavioral: Amount of alcohol per day: 2-3 a month. Tobacco use: Tobacco non-user. Alcohol: Alcohol. Drug Use: Drug use Type: Thc gummies. Habits: Amount of sleep. 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 Allergies - Carvedilol - Coreg - Doxycycline Hyclate - Levaquin - Morphine Sulfate Family History Arthritis Stroke/paralysis Ischemic heart disease Paternal: Arthritis Ischemic heart disease Maternal: Stroke/paralysis Ischemic heart disease Kidney disease Review Of Systems Systemic: No systemic symptoms other then noted and no recent weight loss. Head: No head symptoms other then noted. Neck: No neck pain. Eyes: Blurry vision. Otolaryngeal: No otolaryngeal symptoms other than noted. Tinnitus. Cardiovascular: No cardiovascular symptoms other than noted. Pulmonary: No pulmonary symptoms other than noted. Gastrointestinal: Normal appetite No GI symptoms other than noted. Genitourinary: No genitourinary symptoms other than noted. Endocrine: No endocrine symptoms other than noted. Muscle weakness and Weakness. Hematologic: No easy bleeding and no tendency for easy bruising. H/o blood transfusions. Musculoskeletal: No musculoskeletal symptoms other than noted. Back pain and pain localized to one or more joints. Neurological: No neurological symptoms other than noted and no fainting passing out with needles or medical procedures. Psychological: No sleep disturbances other than noted. Skin: No skin symptoms other than noted. A skin wound is slow to heal. Physical Findings - Vitals taken 06/27/2023 01:18 pm BP-Sitting R 124/68 mmHg BP Cuff Size Regular Pulse Rate-Sitting 68 bpm Temp-Temporal 96.8 F Height 72 in Weight 226 lbs Body Mass Index 30.7 kg/m2 Body Surface Area 2.2 m2 Pain Level 3 Pain Level Note Left hip blt knee Oxygen Saturation 100 % Musculoskeletal System: General/bilateral: Musculoskeletal Scales: Value Lumbar oswestry score 50 Psychiatric: Psychiatric: Value PHQ9 score: 0 Constitutional: Well developed. Well nourished. No acute distress. HEENT: NC/AT. Anicteric. Clear Conjunctiva. PERRLA. MM's pink/moist. No discharge via nares. No discharge via EAC. Neck supple. No thyromegally. No palpable masses. No lymphadenopathy in cervical chain bilaterally. CVS: RRR. No murmurs. Varicosities bilaterally. Peripheral pulses palpable in all extremities. Pulmonary: CTA bilaterally. No wheezes. No rales. No crackles. No rubs. Normal chest expansion. Spine/MSK: Non tender lumbar spine. Decreased ROM lumbar spine. Pain with R lateral rotation. Positive facet loading bilaterally. Negative straight leg bilaterally. Positive Chang's bilaterally. Negative thigh thrust on the R positive on the left. Negative log roll bilaterally. [place]'s positive bilaterally. Tender bilateral SI joints. Gait: Non antalgic. Neuro: Awake. Alert. Oriented x3. DTR's intact in all extremities. DTR's equal in all extremities. Sensory deficit mid calf down. No motor deficit. Psych: No apparent distress. Mood normal. Affect normal. No pain behaviors. Skin: [place], warm, dry. Tests Educational Testing: Questionnaires PHQ-9: Value SOAPP-R: total score 7 Assessment - [N18.6 - End stage renal disease] End stage renal disease - [E11.40 - Type 2 diabetes mellitus with diabetic neuropathy, unspecified] Type 2 diabetes with diabetic neuropathy - [M46.1 - Sacroiliitis, not elsewhere classified] Sacroiliitis - [M25.561 - Pain in right knee] Arthralgia of the right knee/patella/tibia/fibula - [M25.562 - Pain in left knee] Arthralgia of the left knee/patella/tibia/fibula - [M54.50 - Low back pain, unspecified] Low back pain - [G98.0 - Neurogenic arthritis, not elsewhere classified] Neurogenic arthritis - [M79.672 - Pain in left foot] Pain in left foot Therapy - Reviewed & agreed to staff entries. - Encouragement to exercise. - Clinical summary provided to patient. - Plan of care reviewed and agreed to by the patient. Counseling/Education - Lifestyle education - Pill Count: Hydrocodone - Pill Count: Patient did not bring pain medication to appointment for pill count, per policy. Advised in order to continue to safely prescribe opioids, medication must be brought to each appointment Discussed Continue current medications. FU 3 months. No interventional procedures will be able to be done for 1 year due to recent start of Brilinta for stent placement [Feb 2023] Patient is on chronic opioid therapy and tolerating well with no report of adverse symptoms or side effects. Patient reports improvement in pain and functional capacity. Objective measures of pain interference and physical functioning show clinically significant benefit from therapy. Patient expresses understanding of safe and appropriate use of opioids for analgesia. and demonstrates the same. Random pill counts and urine drug screens have been appropriate. This and review of the [facility] database shows no evidence of misuse, abuse, diversion or signs of addiction/use disorder. Patient advised of risks and benefits of medication including the development of tolerance, dependence, withdrawal, addiction, constipation/obstipation, itching, allergic reactions, sedation, worsening depression/anxiety, hormonal perturbations, cognitive impairment or impairment in judgement, psychomotor slowing/impairment, intoxication, injury/accident, DWI/DUI, respiratory depression or failure, development of hyperalgesia, overdose and . Patient is aware that the combination of opioid medications in any form, whether used over the short term or chronically, with other sedative or psychoactive medication including but not limited to benzodiazepines, muscle relaxants, THC, alcohol, hypnotics/sleep medications or other illicit drugs can result in an increased risk of overdose and and is discouraged. Patient is aware that in all cases the lowest effective dose of opioids should be used and doses should be weaned as tolerated as pain improves. Opioid consent form and patient-physician agreement have been reviewed with the patient with all questions satisfactorily elicited asked and answered. These documents have been signed, witnessed and entered into the patient record with a copy provided to the patient. Patient understands that violation of this agreement could result in discontinuation of controlled substances including opioids and possible dismissal from the practice. Patient was further instructed today on taking medication correctly; storing medication securely; disposing of medication properly. Patient was warned against sharing medication and escalating doses without the prescribing provider's knowledge and instruction. Patient was instructed to call the office directly for refills of any controlled substance 4-5 days in advance to avoid unnecessary delays or disruptions in their dosing.. Plan StartCited - Pain in right knee Diclofenac Sodium 1% gram apply to painful joint as needed three times daily, 30 days, 2 refills EndCited Practice Management Use of tobacco assessment performed and patient screened for future fall risk documentation of any fall with injury in past year Review of medications documented; Standardized depression screening: negative for symptoms and for adult impression and score 0; [23480] Established outpatient, medically appropriate H&P, high level decision making, 40-54 minutes. A total of 12 minutes were spent caring for this patient. Please see details of care in the notes above. Results of this interaction were communicated directly to the patient's referring and/or primary care provider. All imaging studies and test results discussed in the above document were personally reviewed and evaluated by the performing provider. For all patients on acute or chronic opioids, ongoing need for opioid analgesia is assessed at each visit with consideration of discontinuation or wean to lowest effective dose when possible and appropriate. Contents of this document have been edited for correctness, but may be subject to typographical or mill tender errors. Verify all diagnoses, medications, dosages, and patient instructions with patient and/or the originator of this document. Care Team - YUE LOVETT MD - Gaming Associate - ARTURO AMOR DO - Primary Care - - Cardiology Dr Marco Cherry and Merline Medrano Health Reminders - Assess Blood Pressure satisfied 06/27/2023. - Assess BMI satisfied 06/27/2023. - Assess Tobacco Use satisfied 06/27/2023. - Blood Pressure Measurement satisfied 06/27/2023. - Depression Screening satisfied 06/27/2023. - Follow Up Plan BMI Management satisfied 06/27/2023. - Follow up plan for Depression Screening satisfied 06/27/2023. * Progress note Date Encounter Last Documented by 06/25/2023 RX ISSUE/REFILL Last documented on 06/25/2023; 10:32 AM, LIAM SHAIKH APRN-FPA, WARRANT SERVER-BC; [facility] Active Problems & Conditions - Anxiety Disorder Nos - Coronary Artery Disease - End Stage Renal Disease - Essential Hypertension - Neurogenic Arthritis - Type 2 Diabetes with Diabetic Neuropathy - Type 2 Diabetes with Diabetic Retinopathy Chief Complaint Phone Call - Chief Concern: Reason for call:RX REFILL Patient is requesting a refill on HYDROCODONE 5/325 ~How is medication taken? HAAD TAKEN QID FOR A SHORT TIME UNTILL HE WAS ABLE TO GET INJECTION. NOW BACK TO TID ~How many are left?7 Risk Assessment Score: LOW ~[place]:05/27/23 Last Office Visit: 05/16/23 ~ pt phone # for Return call: ~Last Drug Screen:09/27/22 ~Date/Initials: 06/25/23 CB. Current Medication - Amiodarone HCl 200 MG Oral Tablet One tablet daily 90 days, 0 refills - Atorvastatin Calcium 80 MG Oral Tablet 90 days, 0 refills - Brilinta 90 MG Oral Tablet One tablet twice a day 3 days, 0 refills - Calcitonin (Drumore) 200 UNIT/ML Injection Solution VIA Dialysis, 0 days, 0 refills - Cinacalcet HCl 90 MG Oral Tablet Via Dialysis 3 times a week., 0 days, 0 refills - Eliquis 5 MG Oral Tablet One tablet twice a day 30 days, 0 refills - Furosemide 80 MG Oral Tablet One tablet daily 28 days, 0 refills - Heparin Na (Pork) Lock Flsh PF 100 UNIT/ML Intravenous Solution 600 unit / hr Via Dialysis, 0 days, 0 refills - hydrALAZINE HCl 50 MG Oral Tablet 30 days, 0 refills - Isosorbide Mononitrate ER 30 MG Oral Tablet Extended Release 24 Hour One tablet daily 30 days, 0 refills - Losartan Potassium 50 MG Oral Tablet One tablet daily 30 days, 0 refills - Mircera 50 MCG/0.3ML Injection Solution Prefilled Syringe Every 2 weeks via dialysis, 0 days, 0 refills - Nitroglycerin 0.4 MG Sublingual Tablet Sublingual As needed., 0 days, 0 refills - NovoLOG FlexPen 100 UNIT/ML Subcutaneous Solution Pen-injector As directed., 100 days, 0 refills - Pantoprazole Sodium 40 MG Oral Tablet Delayed Release 1 Capsule every morning 0 days, 0 refills - Polymyxin B-Trimethoprim 54230-0.1 UNIT/ML-% Ophthalmic Solution 2 drops to affected eye three times daily, 30 days, 0 refills - Sevelamer Carbonate 800 MG Oral Tablet as needed., 0 days, 0 refills Past Medical/Surgical History Reported: Surgery T10-L1 Fusion secondary to Osteomyelitis. Please list all illnesses/conditions you have been diagnosed with: Renal failure, CHF, ,HTN, IDDM, aortic aneurysm, arthritis, retinopathy, hearing loss, neuropathy, and Please list all surgeries: Left small toe amputation 2013 retina left and right 2015 &16 fistula 2018 x2 2020 x1 peritoneal port insertion and removal 2017& 2018. Medical: No Spinal cord stimulator and no Pain Pump Insulin Pump Hepatomegaly. Surgical / Procedural: No Pacemaker Cardiac Stent and no Pacemaker. Physical Trauma: Has had no fall in the last 12 months. and Denies a fear of falling. Social History Difficulty walking. Behavioral: Amount of alcohol per day: 2-3 a month. Tobacco use: Current smoker and tobacco non-user. Alcohol: Alcohol. Drug Use: Drug use Type: Thc gummies. Habits: Amount of sleep. 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 Allergies - Coreg - Levaquin - Morphine Sulfate Family History Arthritis Stroke/paralysis Ischemic heart disease Paternal: Arthritis Ischemic heart disease Maternal: Stroke/paralysis Ischemic heart disease Kidney disease Plan StartCited - Low back pain, unspecified HYDROcodone-Acetaminophen 5-325 MG tablet One tablet three to four times a day as needed for severe pain [30 day script], 30 days, 0 refills EndCited Care Team - YUE LOVETT MD - Gaming Associate - ARTURO AMOR DO - Primary Care Health Reminders - Assess Tobacco Use satisfied 06/25/2023. * Progress note Date Encounter Last Documented by 05/25/2023 RX ISSUE/REFILL Last documented on 05/25/2023; 1:48 PM, LIAM SHAIKH APRN-ELIANEA, WARRANT SERVER-BC; [facility] Active Problems & Conditions - Anxiety Disorder Nos - Coronary Artery Disease - End Stage Renal Disease - Essential Hypertension - Neurogenic Arthritis - Type 2 Diabetes with Diabetic Neuropathy - Type 2 Diabetes with Diabetic Retinopathy Chief Complaint Phone Call - Chief Concern: Reason for call: Refill and to see about does increase at night time. Patient states by evening he is hurting so bad he can hardly make it to bed. Patient is requesting a refill on Hydrocodone ~How is medication taken? TID ~How many are left? 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 Current Medication - Amiodarone HCl 200 MG Oral Tablet One tablet daily 90 days, 0 refills - Atorvastatin Calcium 80 MG Oral Tablet 90 days, 0 refills - Brilinta 90 MG Oral Tablet One tablet twice a day 3 days, 0 refills - Calcitonin (Drumore) 200 UNIT/ML Injection Solution VIA Dialysis, 0 days, 0 refills - Cinacalcet HCl 90 MG Oral Tablet Via Dialysis 3 times a week., 0 days, 0 refills - Eliquis 5 MG Oral Tablet One tablet twice a day 30 days, 0 refills - Furosemide 80 MG Oral Tablet One tablet daily 28 days, 0 refills - Heparin Na (Pork) Lock Flsh PF 100 UNIT/ML Intravenous Solution 600 unit / hr Via Dialysis, 0 days, 0 refills - hydrALAZINE HCl 50 MG Oral Tablet 30 days, 0 refills - Isosorbide Mononitrate ER 30 MG Oral Tablet Extended Release 24 Hour One tablet daily 30 days, 0 refills - Losartan Potassium 50 MG Oral Tablet One tablet daily 30 days, 0 refills - Mircera 50 MCG/0.3ML Injection Solution Prefilled Syringe Every 2 weeks via dialysis, 0 days, 0 refills - Nitroglycerin 0.4 MG Sublingual Tablet Sublingual As needed., 0 days, 0 refills - NovoLOG FlexPen 100 UNIT/ML Subcutaneous Solution Pen-injector As directed., 100 days, 0 refills - Pantoprazole Sodium 40 MG Oral Tablet Delayed Release 1 Capsule every morning 0 days, 0 refills - Polymyxin B-Trimethoprim 54137-5.1 UNIT/ML-% Ophthalmic Solution 2 drops to affected eye three times daily, 30 days, 0 refills - Sevelamer Carbonate 800 MG Oral Tablet as needed., 0 days, 0 refills Past Medical/Surgical History Reported: Surgery T10-L1 Fusion secondary to Osteomyelitis. Please list all illnesses/conditions you have been diagnosed with: Renal failure, CHF, ,HTN, IDDM, aortic aneurysm, arthritis, retinopathy, hearing loss, neuropathy, and Please list all surgeries: Left small toe amputation 2013 retina left and right 2014 &16 fistula 2018 x2 2020 x1 peritoneal port insertion and removal 2017& 2018. Medical: No Spinal cord stimulator and no Pain Pump Insulin Pump Hepatomegaly. Surgical / Procedural: No Pacemaker Cardiac Stent and no Pacemaker. Physical Trauma: Has had no fall in the last 12 months. and Denies a fear of falling. Social History Difficulty walking. Behavioral: Amount of alcohol per day: 2-3 a month. Tobacco use: Current smoker and tobacco non-user. Alcohol: Alcohol. Drug Use: Drug use Type: Thc gummies. Habits: Amount of sleep. 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 Allergies - Coreg - Levaquin - Morphine Sulfate Family History Arthritis Stroke/paralysis Ischemic heart disease Paternal: Arthritis Ischemic heart disease Maternal: Stroke/paralysis Ischemic heart disease Kidney disease Plan StartCited - Low back pain, unspecified HYDROcodone-Acetaminophen 5-325 MG tablet One tablet four times a day as needed for severe pain, 30 days, 0 refills EndCited StartCited - Other PHY ORDER/COMMENT He can take 1 1/2-2 tablets for his third dose or take 1 tab TID and then take 1/2 -1 at bed this would be 120 pills/day so that is what I will send this time. May need to consider changing to a long acting medication. He can fill the this is 2 days early EndCited Care Team - YUE LOVETT MD - Gaming Associate - ARTURO AMOR DO - Primary Care Health Reminders - Assess Tobacco Use satisfied 05/25/2023.
--- OUTSIDE RECORDS SUMMARY | 2024-05-23 12:53 | XMS_ITS | Encounter Summary ---
Author Organization [facility] Address [facility]ly [facility] [place] [address] Care Team Providers Care Treating Engineer Helper Name Role Phone Simon Field MD Unavailable [phone] Kiko Snyder MD Unavailable [phone] Merline Fair MD Unavailable Christopher Stone MD Unavailable [phone] Ankur Jorge Primary Care Provider [phone] Encounter Details Date Type Department Care Team (Late st Contact Info) Description 01/02/2023 Hospital Orders Only [facility]Post [address] [place] [address] Marco Cherry MD [address] [address] Social History Tobacco Use Types Packs/Day Years Used Date Smoking Tobacco: Former Smokeless Tobacco: Never Alcohol Use Standard Drinks/Week Comments Yes 0 (1 standard drink = 0.6 oz pur e alcohol) 1-2/week Humiliation, Afraid, Rape, and Kick questionnair e Answer Date Recorded Within the last year, have y ou been afraid of your partner or ex-partner? No 01/04/2023 Within the last year, have y ou been humiliated or emotionally abused in other ways by your partner or ex-partner? No Within the last year, have y ou been kicked, hit, slapped, or otherwise physically hurt by your partner or ex-partner? No 01/04/2023 Within the last year, have y ou been raped or forced to have any kind of sexual activity by your partner or ex-partner? No 01/04/2023 Social Connection and Isolation Panel [NHANES] A nswer Date Recorded In a typical week, how many times do you talk on the phone with family, friends, or neighbors? Never 01/05/20 How often do you get togethe r with friends or relatives? Once a week 01/04/2023 How often do you attend chur ch or protestant services? 1 to 4 times per year 01/04/2023 Do you belong to any clubs o r organizations such as sabianism groups, unions, fraternal or athletic groups, or [...] medical care, and heating? Not very hard 01/04/2023 [facility] [place] of Occupat ional Health - Occupational Stress [...] the money to buy more. Never true 01/05/20 23 Within the past 12 months, t he food you bought just didn't last and you didn't have money to get more. Never true 01/04/2023 PRAPARE - Transportation Answer Date Re corded In the past 12 months, has l ack of transportation kept you from medical appointments or from getting medications? No 04/2022 In the past 12 months, has l ack of transportation kept you from meetings, work, or from getting things needed for daily living? No 01/04/2023 Housing Stability Vital Sign Answer Luis e Recorded In the last 12 months, was t here a time when you were not able to pay the mortgage or rent on time? No 01/04/2023 In the last 12 months, how many places have you lived? 1 01/04/2023 In the last 12 months, was t here a time when you did not have a steady place to sleep or slept in a snf (including now)? 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 No 01/04/2023 10:00 PM CDT Rachel Amaya RN Ac tive * Question Answer Date of Assessment Author Status Do you have difficulty dressing or bathing? No 01/04/2023 10:00 PM CDT Rachel Amaya R N Active Because of a physical, mental, or emotional condition, do you have difficulty doing errands alone such as visiting a doctor's office or shopping? No 01/04/2023 10:00 PM CDT Rachel Amaya RN Act jesus * Are you deaf or do you have serious difficulty hearing Answer Date of Assessment Author Status No 12/10/2022 7:00 AM CDT Tran Aldana, ORTEGA Active * Are you blind or do you have serious difficulty seeing, even when wearing glasses? Answer Date of Assessment Author Status No 12/10/2022 7:00 AM CDT Tran Aldana RN Active * Do you have serious difficulty walking or climbing stairs? Answer Date of Assessment Author Status Yes 12/10/2022 7:00 AM CDT Tran Aldana RN Active * Do you have difficulty dressing or bathing? Answer Date of Assessment Author Status No 12/10/2022 7:00 AM CHARUT Tran Aldana RN Active * Because of a physical, mental, or emotional condition, do you have difficulty doing errands alone such as visiting a doctor's office or shopping? Answer Date of Assessment Author Status No 12/10/2022 7:00 AM CHARUT Tran Aldana RN Active documented as of this encounter Mental Status * Question Answer Entry Date Author Status Because of a physical, mental, or emotional condition, do you have serious difficulty concentrating, remembering, or making decisions? No 01/04/2023 10:00 PM CDT Rachel Amaya RN Active * Because of a physical, mental, or emotional condition, do you have serious difficulty concentrating, remembering, or making decisions? Answer Entry Date Author Status No 12/10/2022 7:00 AM CDT Tran Aldana RN Active documented in this encounter Plan of Treatment Upcoming Encounters Date Type Department Care Team (Late st Contact Info) Description 05/26/2024 1:15 PM CDT Appointment [facility] [address] [place] [address] Merline Fair MD [address] [place] [address] 05/26/2024 1:30 PM CDT [facility] [address] [place] [address] Merline Fair MD [address] [place] [address] documented as of this encounter Goals Goal Patient Goal Type Associated Problems Recent Progress Patient-Stated? Author Safety Patient/family will have appropriate support at home upon discharge General Bev Monk, RN Safety Patient/family will have appropriate support at home upon discharge Lifestyle Christel Stahl RN documented as of this encounter Visit Diagnoses Not on filedocumented in this encounter Additional Health Concerns Infection Onset Date Last Indicated Resolved Time COVID-19 Rule Out 02/26/2024 02/26/2024 02/26/2024 5:21 PM MANAGER CREDIT COLLECTIONS COVID-19 Rule Out 02/27/2024 02/27/2024 02/27/2024 4:21 PM MANAGER CREDIT COLLECTIONS documented as of this encounter Care Teams Treating Engineer Helper Relationship Specialty Start Date End Date Ankur Jorge FNP [address] [place] [address] PCP - General Nurse Practitioner Family 12/12/22 Simon Field MD [address] [place] [address] FAMILY PRACTICE 12/23/20 Kiko Snyder MD [address] [place] [phone] Consulting Physician ORTHOPAEDIC SPINE SURGERY 10/03/17 Merline Fair MD [address] [place] [address] Consulting Physician CARDIOVASCULAR DISEASE 12/15/20 Christopher Stone MD [address] [place] [address] Consulting Physician INTERVENTIONAL CARDIOLOGY 06/25/22 documented as of this encounter
--- OUTSIDE RECORDS SUMMARY | 2024-05-23 12:53 | XMS_ITS | Encounter Summary ---
Author Organization [facility] Address [address] [place] [address] Care Team Providers Care Senior Quality Technician Name Role Phone Simon Field MD Unavailable + [phone] Kiko Snyder MD Unavailable [phone] Merline Fair MD Unavailable Juhi Bassett [facility] Primary Care Provider [phone] Christopher Stone MD Unavailable [phone] [facility] Primary Care Provider [phone] Encounter Details Date Type Department Care Team (Late st Contact Info) Description 05/15/2022 Hospital Follow-up Call [facility] Unit [address] [place] [address] Sarina Rivers, RN Social History Tobacco Use Types Packs/Day Years Used Date Smoking Tobacco: Former Smokeless Tobacco: Never Alcohol Use Standard Drinks/Week Comments Yes 0 (1 standard drink = 0.6 oz pur e alcohol) 1-2/week Sex and Gender Information Value Date Recorded Sex Assigned at Male 12/24/2020 9:15 AM CDT Legal Sex Male 4:42 PM CDT Gender Identity Male 12/24/2020 9:15 AM CDT Sexual Orientation Choose not to disclose 2020 9:15 AM CDT 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 No / Unsure 05/08/2022 7:23 PM BRICK WASHER documented as of this encounter Functional Status * Are you deaf or do you have serious difficulty hearing Answer Date of Assessment Author Status No 05/09/2022 12:00 AM Matty Mcconnell RN Active * Are you blind or do you have serious difficulty seeing, even when wearing glasses? Answer Date of Assessment Author Status No 05/09/2022 12:00 AM Matty Mcconnell RN Active * Do you have serious difficulty walking or climbing stairs? Answer Date of Assessment Author Status No 05/09/2022 12:00 AM Matty Mcconnell RN Active * Do you have difficulty dressing or bathing? Answer Date of Assessment Author Status No 05/09/2022 12:00 AM Matty Mcconnell RN Active * Because of a physical, mental, or emotional condition, do you have difficulty doing errands alone such as visiting a doctor's office or shopping? Answer Date of Assessment Author Status No 05/09/2022 12:00 AM Matty Mcconnell RN Active documented as of this encounter Mental Status * Because of a physical, mental, or emotional condition, do you have serious difficulty concentrating, remembering, or making decisions? Answer Entry Date Author Status No 05/09/2022 12:00 AM Matty Mcconnell RN Active documented in this encounter Plan of Treatment Upcoming Encounters Date Type Department Care Team (Late st Contact Info) Description 05/26/2024 1:15 PM CDT Appointment [facility] [address] [place] [address] Merline Fair MD [address] [place], [place] [phone] 05/26/2024 1:30 PM CDT [facility] [address] [place] [address] Merline Fair MD [address] [place] [address] documented as of this encounter Goals Goal Patient Goal Type Associated Problems Recent Progress Patient-Stated? Author Safety Patient/family will have appropriate support at home upon discharge General Bev Monk RN Safety Patient/family will have appropriate support at home upon discharge Lifestyle Christel Stahl RN documented as of this encounter Visit Diagnoses Not on filedocumented in this encounter Additional Health Concerns Infection Onset Date Last Indicated Resolved Time COVID-19 Rule Out 02/26/2024 02/26/2024 02/26/2024 5:21 PM BRICK WASHER COVID-19 Rule Out 02/27/2024 02/27/2024 02/27/2024 4:21 PM BRICK WASHER documented as of this encounter Care Teams Senior Quality Technician Relationship Specialty Start Date End Date Juhi Bassett FNP [address] [place] [id number] PCP - General NURSE PRACTITIONER 03/03/21 12/11/22 Ankur Jorge FNP [address] [place] [address] PCP - General Nurse Practitioner [facility] 12/12/22 Simon Field MD [address] [place] [address] FAMILY PRACTICE 12/23/20 Kiko Snyder MD [address] [place] [address] Consulting Physician ORTHOPAEDIC SPINE SURGERY 10/03/17 Merline Fair MD [address] [place] [address] Consulting Physician CARDIOVASCULAR DISEASE 12/15/20 Christopher Stone MD [facility] [place] [address] Consulting Physician INTERVENTIONAL CARDIOLOGY 06/25/22 documented as of this encounter
--- OUTSIDE RECORDS SUMMARY | 2024-05-23 12:53 | XMS_ITS | Encounter Summary ---
Author Organization [facility] Address [address] [place] [address] Care Team Providers Care Stars Analytical Lead Name Role Phone Siomn Field MD Unavailable [phone] Kiko Snyder MD Unavailable [phone] Merline Fair MD Unavailable Christopher Stone MD Unavailable [phone] Ankur Jorge Primary Care Provider [phone] Encounter Details Date Type Department Care Team (Latest Contact Info) Description 04/10/2023 Tizrat Message Enc [facility] Cardiovascular Care Unit [address] [place] [address] Saira, [facility] Provider discharge follow up call Social History Tobacco Use Types Packs/Day Years Used Date Smoking Tobacco: Former Smokeless Tobacco: Never Alcohol Use Standard Drinks/Week Comments Yes 0 (1 standard drink = 0.6 oz pur e alcohol) 1-2/week [facility] Utilities Answer Date Recorded In the past 12 months has e electric, gas, oil, or water company threatened to shut off services in your home? No 04/07/2023 Humiliation, Afraid, Rape, and Kick questionnair e Answer Date Recorded Within the last year, have y ou been afraid of your partner or ex-partner? No 04/08/2023 Within the last year, have y ou been humiliated or emotionally abused in other ways by your partner or ex-partner? No Within the last year, have y ou been kicked, hit, slapped, or otherwise physically hurt by your partner or ex-partner? No 04/08/2023 Within the last year, have y ou been raped or forced to have any kind of sexual activity by your partner or ex-partner? No 04/08/2023 Social Connection and Isolation Panel [NHANES] A nswer Date Recorded In a typical week, how many times do you talk on the phone with family, friends, or neighbors? Never 01/05/20 How often do you get togethe r with friends or relatives? Once a week 01/04/2023 How often do you attend chur ch or congregational services? 1 to 4 times per year [...] medical care, and heating? Not very hard 04/07/2023 [facility] [place] [facility] - Occupational Stress [...] the money to buy more. Never true 04/07/19 24 Within the past 12 months, t he food you bought just didn't last and you didn't have money to get more. Never true 04/07/2023 PRAPARE - Transportation Answer Date Re corded In the past 12 months, has l ack of transportation kept you from medical appointments or from getting medications? No 06/2023 In the past 12 months, has l ack of transportation kept you from meetings, work, or from getting things needed for daily living? No 04/08/2023 Housing Stability Vital Sign Answer [...] place to sleep or slept in a fci (including now)? 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 Answer Date of Assessment Author Status Yes 04/07/2023 4:50 AM Mili Ramírez, ORTEGA Active * Do you have serious difficulty walking or climbing stairs? Answer Date of Assessment Author Status Yes 04/07/2023 11:00 PM Mili Ramírez , ORTEGA Active * Do you have difficulty dressing or bathing? Answer Date of Assessment Author Status No 04/07/2023 11:00 PM Mili Ramírez , ORTEGA Active * Because of a physical, mental, or emotional condition, do you have difficulty doing errands alone such as visiting a doctor's office or shopping? Answer Date of Assessment Author Status Yes 04/07/2023 11:00 PM Mili Ramírez , ORTEGA Active documented as of this encounter Mental Status * Because of a physical, mental, or emotional condition, do you have serious difficulty concentrating, remembering, or making decisions? Answer Entry Date Author Status No 04/07/2023 11:00 PM Mili Ramírez , ORTEGA Active documented in this encounter Plan of Treatment Upcoming Encounters Date Type Department Care Team (Late st Contact Info) Description 05/26/2024 1:15 PM CDT Appointment [facility] [address] [place] [address] [place] [address] Merline Fair MD [address] [place] [phone] 05/26/2024 1:30 PM CDT Office Visit [facility] [place] [address] Merline Fair MD [address] [place], [place] [phone] documented as of this encounter Goals Goal [...] Rule Out 02/26/2024 02/26/2024 02/26/2024 5:21 PM 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 COVID-19 Rule Out 02/27/2024 02/27/2024 02/27/2024 4:21 PM 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 documented as of this encounter Care Teams Stars Analytical Lead Relationship Specialty Start Date End Date Ankur Jorge FNP [address] [place] [address] PCP - General Nurse Practitioner Family 12/12/22 Simon Field MD [address] [place] [address] FAMILY PRACTICE 12/23/20 Kiko Snyder MD [address] [place] [phone] Consulting Physician ORTHOPAEDIC SPINE SURGERY 10/03/17 Merline Fair MD [address] [place] [address] Consulting Physician CARDIOVASCULAR DISEASE 12/15/20 Christopher Stone MD [address] [place] [address] Consulting Physician INTERVENTIONAL CARDIOLOGY 06/25/22 documented as of this encounter
--- OUTSIDE RECORDS SUMMARY | 2024-05-23 12:53 | XMS_ITS | Clinical Summary ---
Author Organization [facility] Address [address] [place] [address] Phone Care Team Providers Care Frame Hand Name Role Phone YUE LOVETT MD Unavailable [phone] ARTURO AMOR DO Unavailable [phone] Reason for Visit and Chief Complaint RX ISSUE/REFILL Problems Includes: Problems addressed during this encounter and other active Problems All Visits Onset Date Resolved Date Provider Condition S tatus Anxiety Disorder Nos Unknown LIAM G NEEL CRANE HELPER-FPA, PLANT SPECIALIST-BC Active Last Documented On 3 10:42AM ; [facility] Neurogenic Arthritis Unknown LIAM G NEEL CRANE HELPER-FPA, PLANT SPECIALIST-BC Active Last Documented On 3 10:20AM ; [facility] Coronary Artery Disease Unknown LIAM G KU LP CRANE HELPER-FPA, PLANT SPECIALIST-BC Active Last Documented On 3 10:35AM ; [facility] Type 2 Diabetes with Diabeti c Neuropathy Unknown LIAM G NEEL CRANE HELPER-FPA, PLANT SPECIALIST-BC Active Last Documented On 3 12:11PM ; [facility] Type 2 Diabetes with Diabeti c Retinopathy Unknown LIAM G NEEL CRANE HELPER-FPA, PLANT SPECIALIST-BC Active Last Documented On 3 10:41AM ; [facility] End Stage Renal Disease Unknown ANTHONY SSA G NEEL CRANE HELPER-FPA, PLANT SPECIALIST-BC Active Last Documented On 3 10:41AM ; [facility] Note: on Dialysis Essential Hypertension Unknown JUAN ALBERTO SA G NEEL CRANE HELPER-FPA, PLANT SPECIALIST-BC Active Last Documented On 3 10:41AM ; [facility] Plan of Treatment No Plan of Treatment Recorded Assessments Includes: Assessments from this encounter No Assessments Recorded Medical Equipment - Implanted Devices Includes: Current Devices No Medical Equipment Recorded Medications Includes: Medications discussed during this encounter and other current Medications Discontinued / Stopped on this date VALERY ROBINS on 04/27/2023 HYDROcodone-Acetaminophen 5- 325 MG Oral Tablet Provider: VALERY ROBINS Diagnosis: Low back pain, unspecified Last Documented On 4 1:48PM By LIAM RASMUSSEN ; [facility] New / Renewed during this visit VALERY ROBINS on 05/25/2023 HYDROcodone-Acetaminophen 5- 325 MG Oral Tablet Provider: VALERY ROBINS 30 day supply: 120 tablet, 0 refills Diagnosis: Low back pain, unspecified One tablet four times a day as needed for severe pain Pharmacy: [address] [address] - Last Documented On 4 10:31AM By LIAM RASMUSSEN ; [facility] Current Medications (continue as prescribed) HYDROcodone-Acetaminophen 5- 325 MG Oral Tablet 08/24/2023 Provider: VALERY ROBINS Diagnosis: Low back pain, unspecified One tablet three to four jamarcus es a day as needed for severe pain [30 day script] Last Documented On 4 4:05PM By LIAM RASMUSSEN ; [facility] Diclofenac Sodium 1% External Gel 06/27/2023 Provider: VALERY HUNT Diagnosis: Pain in right kn ee apply to painful joint as ne eded three times daily Last Documented On 4 1:31PM By LIAM RASMUSSEN ; [facility] Pantoprazole Sodium 40 MG Oral Tablet Delayed Release 02/19/2023 Provider: Diagnosis: Last Documented On 3 10:37AM By LIAM RASMUSSEN ; [facility] hydrALAZINE HCl 50 MG Oral Tablet 02/11/2023 Provide r: Diagnosis: Last Documented On 3 10:38AM [facility] ; [facility] Losartan Potassium 50 MG Oral Tablet 02/11/2023 Prov ider: Diagnosis: Last Documented On 3 10:37AM By LIAM SHAIKH [facility] ; [facility] Eliquis 5 MG Oral Tablet 02/02/2023 Provider: Diagnosis: Last Documented On 3 10:37AM By LIAM SHAIKH [facility] ; [facility] Furosemide 80 MG Oral Tablet 02/02/2023 Provider: Diagnosis: Last Documented On 3 10:37AM By [facility] ; [facility] Amiodarone HCl 200 MG Oral Tablet 01/23/2023 Provide r: Diagnosis: Last Documented On 3 10:37AM By [facility] ; [facility] Atorvastatin Calcium 80 MG Oral Tablet 01/19/2023 Pr ovider: Diagnosis: Last Documented On 3 10:37AM By LIAM SHAIKH [facility] ; [facility] Brilinta 90 MG Oral Tablet 01/06/2023 Provider: Diagnosis: Last Documented On 3 10:37AM By LI[facility] SHAIKH [facility] ; [facility] Isosorbide Mononitrate ER 30 MG Oral Tablet Extended Release 24 Hour 01/01/2023 Provider: Diagnosis: Last Documented On 3 10:37AM By LI[facility] SHAIKH [facility] ; [facility] Cinacalcet HCl 90 MG Oral Tablet 07/26/2022 Provider : Diagnosis: Via Dialysis 3 times a week. Last Documented On 3 12:38PM By LIAM SHAIKH PLANT SPECIALISTTOM ; [facility] Calcitonin ([place]) 200 UNIT/ML Injection Solution Provider: Diagnosis: VIA Dialysis Last Documented On 3 12:38PM By LIAM MNAUELTOM ; [facility] Nitroglycerin 0.4 MG Sublingual Tablet Sublingual 07/04 Provider: Diagnosis: As needed. Last Documented On 3 12:38PM By LIAM RASMUSSEN ; [facility] Sevelamer Carbonate 800 MG Oral Tablet 07/26/2022 Pr ovider: Diagnosis: as needed. Last Documented On 3 12:38PM By LIAM RASMUSSEN ; [facility] Heparin Na (Pork) Lock Flsh PF 100 UNIT/ML Intravenous Solution 07/26/2022 Provider: Diagnosis: 600 unit / hr Via Dialysis Last Documented On 3 12:38PM By LIAM RASMUSSEN ; [facility] Mircera 50 MCG/0.3ML Injection Solution Prefilled Syri nge 07/26/2022 Provider: Diagnosis: Every 2 weeks via dialysis Last Documented On 3 12:38PM By LIAM RASMUSSEN ; [facility] NovoLOG FlexPen 100 UNIT/ML Subcutaneous Solution Pen-injector 05/17/2022 Provider: ARTURO Sanabria Diagnosis: As directed. Last Documented On 3 12:38PM By LIAM RASMUSSEN ; [facility] Medications Administered Includes: Administered Medications from this encounter No Administered Medications Recorded Results Includes: Results discussed during this encounter No Results Recorded For Specified Dates History of Present Illness Includes: History of Present Illness from this encounter No History of Present Illness Recorded Social History Description Last Updated Tobacco non-user 05/16/2023 Last Documented On 4 1:29PM ; [facility] Amount of sleep 02/19/2023 Last Documented On 4 1:29PM ; [facility] Current smoker 02/19/2023 Last Documented On 4 1:29PM ; [facility] 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] 07/26/2022 Last Documented On 4 1:29PM ; [facility] Alcohol 07/26/2022 Last Documented On 4 1:29PM ; [facility] Amount of alcohol per day: 2-3 a month 0 07/26/2022 Last Documented On 4 1:29PM ; [facility] Difficulty walking 07/26/2022 Last Documented On 4 1:29PM ; [facility] Drug use 07/26/2022 Last Documented On 4 1:29PM ; [facility] Type: Thc gummies 07/26/2022 Last Documented On 4 1:29PM ; [facility] Smoking Status Unknown Procedures and Surgical History Surgical History Last Updated No Pacemaker 07/26/2022 Last Documented On 4 1:29PM ; [facility] Medical History Includes: Medical History addressed during this encounter Description Last Updated No Pacemaker Cardiac Stent 02/19/2023 Last Documented On 4 1:29PM ; [facility] No Pain Pump Insulin Pump ~Hepatomegaly 11/27/2022 Last Documented On 4 1:29PM ; [facility] Please list all illnesses/co nditions you have been diagnosed with: Renal failure, CHF, ,HTN, IDDM, aortic aneurysm, arthritis, retinopathy, hearing loss, neuropathy, 10/03/2022 Last Documented On 4 1:29PM ; [facility] Please list all surgeries: L eft small toe amputation 2014 ~retina left and right 2015 &16 ~fistula 2017 x2 2020 x1 ~peritoneal port insertion and removal 2016& 2018 10/03/2022 Last Documented On 4 1:29PM ; [facility] 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 07/26/2022 Last Documented On 4 1:29PM ; [facility] Has had no fall in the last 12 months. 0 07/26/2022 Last Documented On 4 1:29PM ; [facility] Family History Includes: Family History addressed during this encounter Description Last Updated Family history of Arthritis 07/26/2022 Last Documented On 4 1:29PM ; [facility] Family history of ischemic heart disease 07/26/2022 Last Documented On 4 1:29PM ; [facility] Family history of stroke/paralysis 07/26 Last Documented On 4 1:29PM ; [facility] Maternal history of family history of is chemic heart disease 07/26/2022 Last Documented On 4 1:29PM ; [facility] Maternal history of family history of ki dney disease 07/26/2022 Last Documented On 4 1:29PM ; [facility] Maternal history of stroke/paralysis Last Documented On 4 1:29PM ; [facility] Paternal history of Arthritis 07/26/2022 Last Documented On 4 1:29PM ; [facility] Paternal history of family history of is chemic heart disease 07/26/2022 Last Documented On 4 1:29PM ; [facility] Review of Systems Includes: Review of Systems from this encounter No Review of Systems Recorded Mental Status Includes: Mental Status from this encounter No Mental Status Recorded Functional Status Includes: Functional Status from this encounter No Functional Status Recorded Physical Exam Includes: Physical Exam from this encounter No Physical Exam Recorded Allergies Includes: Active Allergies Substance Type Reaction Onset Date Resolved Date Statu s Morphine Sulfate Allergy 07/26/2022 Ac tive Last Documented On 4 1:15PM ; [facility] Levaquin Allergy 07/26/2022 Active Last Documented On 4 1:15PM ; [facility] Doxycycline Hyclate Allergy 06/27/2023 Active Last Documented On 4 1:15PM ; [facility] Coreg Allergy 07/26/2022 Active Last Documented On 4 1:15PM ; [facility] Carvedilol Allergy 06/27/2023 Active Last Documented On 4 1:17PM ; [facility] Encounters Encounter Provider Location Date Check-In Time Check-Out Time Diagnosis RX ISSUE/REFILL LIAM SHAIKH CRANE HELPER-FPA, PLANT SPECIALIST-BC 05/25/2023 1:27PM 11:59PM Insurance Includes: Active Insurance Policies Plan Name Member ID Group # Subscriber Relationship Effect jesus Dates 1 - [facility] [id number] NIURKA CROCKER III Self Clinical Notes Includes: Clinical Notes from this encounter * Progress note Date Encounter Last Documented by 05/25/2023 RX ISSUE/REFILL Last documented on 05/25/2023; 1:48 PM, LIAM SHAIKH APRN-JULIO C, MAR-TOM; [facility] Active Problems & [...] Return call: ~Last Drug Screen: 09/27/2022 ~Date/Initials:05/25/2023 TRANSITION RN. Current Medication - Amiodarone HCl 200 MG Oral Tablet One tablet daily 90 days, 0 refills - Atorvastatin Calcium 80 MG Oral Tablet 90 days, 0 refills - Brilinta 90 MG Oral Tablet One tablet twice a day 3 days, 0 refills - Calcitonin ([place]) 200 UNIT/ML Injection Solution VIA Dialysis, 0 [...] 0 days, 0 refills - Polymyxin B-Trimethoprim 09637-1.1 UNIT/ML-% Ophthalmic Solution 2 drops to affected [...] gummies. Habits: Amount of sleep. 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 Allergies - Coreg - Levaquin - Morphine [...] long acting medication. He can fill the 24th this is 2 days early EndCited Care Team - YUE LOVETT MD - Utilization Review Nurse - ARTURO AMOR DO - Primary Care Health Reminders - Assess Tobacco Use satisfied 05/25/2023.
--- OUTSIDE RECORDS SUMMARY | 2024-05-23 12:53 | XMS_ITS | Encounter Summary ---
Author Organization [facility] Address [address] [place] [address] Care Team Providers Care Monomer Recovery Supervisor Name Role Phone Simon Field MD Unavailable + [phone] Kiko Snyder MD Unavailable [phone] Merline Fair MD Unavailable Juhi Bassett [facility] Primary Care Provider [phone] Christopher Stone MD Unavailable [phone] Ankur Jorge [facility] Primary Care Provider [phone] Encounter Details Date Type Department Care Team (Latest Contact Info) Description 05/24/2022 Hospital Encounter Radha Alicia MD [address] [place] [address] Social History Tobacco Use Types Packs/Day Years Used Date Smoking Tobacco: Former Smokeless Tobacco: Never Alcohol Use Standard Drinks/Week Comments Not Currently 0 (1 standard drink = 0.6 oz pur e alcohol) 1-2/week [facility] Utilities Answer Date Recorded In the past 12 months has e [employer], gas, oil, or water company threatened to shut off services in your home? No 09/04/2023 Humiliation, Afraid, Rape, and Kick questionnair e Answer Date Recorded Within the last year, have y ou been afraid of your partner or ex-partner? No 09/04/2023 Within the last year, have y ou been humiliated or emotionally abused in other ways by your partner or ex-partner? No Within the last year, have y ou been kicked, hit, slapped, or otherwise physically hurt by your partner or ex-partner? No 09/04/2023 Within the last year, have y ou been raped or forced to have any kind of sexual activity by your partner or ex-partner? No 09/04/2023 Social Connection and Isolation Panel [NHANES] A nswer Date Recorded In a typical week, how many times do you talk on the phone with family, friends, or neighbors? Never 01/05/20 How often do you get togethe r with friends or relatives? Once a week 01/04/2023 How often do you attend chur ch or anglican services? 1 to 4 times per year 01/04/2023 Do you belong to any clubs o r organizations such as alevism groups, unions, fraternal or athletic groups, or [...] care, and heating? Not hard at all 09/04/2023 [facility] of Occupat ional Health - Occupational Stress [...] the money to buy more. Never true 09/04/19 24 Within the past 12 months, t he food you bought just didn't last and you didn't have money to get more. Never true 09/04/2023 PRAPARE - Transportation Answer Date Re corded In the past 12 months, has l ack of transportation kept you from medical appointments or from getting medications? No 04/2023 In the past 12 months, has l ack of transportation kept you from meetings, work, or from getting things needed for daily living? No 09/04/2023 Housing Stability Vital Sign Answer Luis e [...] place to sleep or slept in a [place] (including now)? No 04/08/2023 Housing Stability Vital Sign Answer Luis e Recorded In the last 12 months, was t here a time when you were not able to pay the mortgage or rent on time? No 09/04/2023 In the past 12 months, how m any times have you moved where you were living? 1 09/04/2023 At any time in the past 12 m [facility], were you homeless or living in a [place] (including now)? 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 No / Unsure 07/27/2022 12:04 PM CDT documented as of this encounter Functional Status * Question Answer Date of Assessment Author Status Do you have serious difficulty walking or climbing stairs? No 09/03/2023 3:00 PM CDT Rubina Poole RN Active * Question Answer Date of Assessment Author Status Do you have difficulty dressing or bathing? No 09/03/2023 3:00 PM CDT Celia Poole RN Active Because of a physical, mental, or emotional condition, do you have difficulty doing errands alone such as visiting a doctor's office or shopping? No 09/03/2023 3:00 PM CHARUT Rubina Poole RN Active * Are you deaf or do you [...] difficulty concentrating, remembering, or making decisions? No 09/03/2023 3:00 PM CDT Celia Poole RN Active * Because of a physical, mental, or emotional condition, do you have serious difficulty concentrating, remembering, or making decisions? Answer Entry Date Author Status No 05/09/2022 12:00 AM BULL LADLE TENDER Matty Leija RN Active documented in this encounter Plan of Treatment Upcoming Encounters Date Type Department Care Team (Late st Contact Info) Description 05/26/2024 1:15 PM CDT Appointment [facility] [address] [place] [address] [place] [address] Merline Fair MD [address] [place], [place] [id number] 05/26/2024 1:30 PM CDT Office Visit [facility] [address] [place] [address] [place] [phone] Merline Fair MD [address] [place] [address] documented as of this encounter [...] Rule Out 02/26/2024 02/26/2024 02/26/2024 5:21 PM BULL LADLE TENDER COVID-19 Rule Out 02/27/2024 02/27/2024 02/27/2024 4:21 PM BULL LADLE TENDER documented as of this encounter Care Teams Monomer Recovery Supervisor Relationship Specialty Start Date End Date Juhi Bassett FNP [address] [place] [id number] PCP - General NURSE PRACTITIONER 03/03/21 12/11/22 Ankur Jorge FNP [address] [place] [phone] PCP - General Nurse Practitioner Family 12/12/22 Simon Field MD [address] [place] [address] FAMILY PRACTICE 12/23/20 Kiko Snyder MD [address] [place] [phone] Consulting Physician ORTHOPAEDIC SPINE SURGERY 10/03/17 Merline Fair MD [address] [place] [address] Consulting Physician CARDIOVASCULAR DISEASE 12/15/20 Christopher Stone MD [address] [place] [address] Consulting Physician INTERVENTIONAL CARDIOLOGY 06/25/22 documented as of this encounter
--- OUTSIDE RECORDS SUMMARY | 2024-05-23 12:53 | XMS_ITS | Encounter Summary ---
Author Organization [facility] Address [address] [place] [address] Care Team Providers Care Solid Waste Manager Name Role Phone Simon Field MD Unavailable + [phone] Kiko Snyder MD Unavailable [phone] Merline Fair MD Unavailable Christopher Stone MD Unavailable [phone] Ankur Jorge Primary Care Provider [phone] Encounter Details Date Type Department Care Team (Late st Contact Info) Description 01/08/2023 Hospital Follow-up Call [facility] [address] [place] [address] Sarina Rivers, RN Social History [...] 01/04/2023 How often do you attend chur or scientologist services? 1 to 4 times per year 01/04/2023 Do you belong to any clubs o r organizations such as scientology groups, unions, fraternal or athletic groups, or [...] care, and heating? Not very hard 01/04/2023 [facility] of Occupat ional Health - Occupational Stress [...] place to sleep or slept in a correction (including now)? 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 Answer Date of Assessment Author Status No 01/04/2023 10:00 PM CHARUT Rachel Amaya RN Active * Do you have serious difficulty walking or climbing stairs? Answer Date of Assessment Author Status No 01/04/2023 10:00 PM CHARUT Rachel Amaya RN Active * Do you have difficulty dressing or bathing? Answer Date of Assessment Author Status No 01/04/2023 10:00 PM CHARUT Rachel Amaya RN Active * Because of a physical, mental, or emotional condition, do you have difficulty doing errands alone such as visiting a doctor's office or shopping? Answer Date of Assessment Author Status No 01/04/2023 10:00 PM CDT Rachel Amaya, RN Active documented as of this encounter Mental Status * Because of a physical, mental, or emotional condition, do you have serious difficulty concentrating, remembering, or making decisions? Answer Entry Date Author Status No 01/04/2023 10:00 PM CDT Rachel Amaya RN Active documented in this encounter Plan of Treatment Upcoming Encounters Date Type Department Care Team (Late st Contact Info) Description 05/26/2024 1:15 PM CDT Appointment [facility] [address] [place] [address] [place] [address] Merline Fair MD [address] [place], [place] [address] 05/26/2024 1:30 PM CDT Office Visit [facility] [place] [address] Merline Fair MD [address] [place], [place] [phone] documented as of this encounter Goals Goal [...] Rule Out 02/26/2024 02/26/2024 02/26/2024 5:21 PM PORCELAIN FINISHER COVID-19 Rule Out 02/27/2024 02/27/2024 02/27/2024 4:21 PM PORCELAIN FINISHER documented as of this encounter Care Teams Solid Waste Manager Relationship Specialty Start Date End Date Ankur Jorge FNP [address] [place] [phone] PCP - General Nurse Practitioner Family 12/12/22 Simon Field MD [address] [place] [address] FAMILY PRACTICE 12/23/20 Kiko Sndyer MD [address] [place] [phone] Consulting Physician ORTHOPAEDIC SPINE SURGERY 10/03/17 Merline Fair MD [address] [place], [place] [phone] Consulting Physician CARDIOVASCULAR DISEASE 12/15/20 Christopher Stone MD [address] [place] [address] Consulting Physician INTERVENTIONAL CARDIOLOGY 06/25/22 documented as of this encounter
--- OUTSIDE RECORDS SUMMARY | 2024-05-23 12:53 | XMS_ITS | Encounter Summary ---
Author Organization [facility] Address [address] [place] [address] Care Team Providers Care A Class Lineman Name Role Phone Simon Field MD Unavailable + [phone] Kiko Snyder MD Unavailable [phone] Merline Fair MD Unavailable Christopher Stone MD Unavailable [phone] Ankur Jorge Primary Care Provider [phone] Encounter Details Date Type Department Care Team (Late st Contact Info) Description 04/10/2023 Hospital Follow-up Call [facility] [address] [place] [address] Sarina Rivers, RN Social History Tobacco Use Types Packs/Day Years Used Date Smoking Tobacco: Former Smokeless Tobacco: Never Alcohol Use Standard Drinks/Week Comments Yes 0 (1 standard drink = 0.6 oz pur e alcohol) 1-2/week [facility] Utilities Answer Date Recorded In the [...] often do you attend chur ch or rastafari services? 1 to 4 times per year 01/04/2023 Do you belong to any clubs o r organizations such as caodaism groups, unions, fraternal or athletic groups, or [...] care, and heating? Not very hard 04/07/2023 [facility] [place] of Occupat ional Health - Occupational Stress [...] place to sleep or slept in a custodial (including now)? 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 Answer Date of Assessment Author Status Yes 04/07/2023 4:50 AM Mili Ramírez, ORTEGA Active * Do you have serious difficulty walking or climbing stairs? Answer Date of Assessment Author Status Yes 04/07/2023 11:00 PM Mili Ramírez RN Active * Do you have difficulty [...] Info) Description 05/26/2024 1:15 PM CDT Appointment [facility] [address] [place] [address] [place] [address] Merline Fair MD [address] [place] [id number] 05/26/2024 1:30 PM CDT Office Visit [facility] [place] [address] Merline Fair MD [address] [place], [place] [phone] documented as of this encounter Goals Goal [...] Rule Out 02/26/2024 02/26/2024 02/26/2024 5:21 PM SAP PI ARCHITECT COVID-19 Rule Out 02/27/2024 02/27/2024 02/27/2024 4:21 PM SAP PI ARCHITECT documented as of this encounter Care Teams A Class Lineman Relationship Specialty Start Date End Date Ankur Jorge FNP [address] [place] [address] PCP - General Nurse Practitioner Family 12/12/22 Simon Field MD [address] [place] [address] FAMILY PRACTICE 12/23/20 Kiko Snyder MD [address] [place] [phone] Consulting Physician ORTHOPAEDIC SPINE SURGERY 10/03/17 Merline Fair MD [address] [place] [address] Consulting Physician CARDIOVASCULAR DISEASE 12/15/20 Christopher Stone MD [address] [place] [address] Consulting Physician INTERVENTIONAL CARDIOLOGY 06/25/22 documented as of this encounter
--- OUTSIDE RECORDS SUMMARY | 2024-05-23 12:53 | XMS_ITS | Clinical Summary ---
Author Organization [facility] Address [address] [place] [address] Phone Care Team Providers Care Mva Reactor Operator Name Role Phone YUE LOVETT MD Unavailable [phone] ARTURO AMOR DO Unavailable [phone] Reason for Visit and Chief Complaint RX ISSUE/REFILL Problems Includes: Problems addressed during this encounter and other active Problems All Visits Onset Date Resolved Date Provider Condition S tatus Anxiety Disorder Nos Unknown LIAM G NEEL OPTOMETRIST-FPA, HOSPITALITY RECRUITER-BC Active Last Documented On 3 10:42AM ; [facility] Neurogenic Arthritis Unknown LIAM G NEEL OPTOMETRIST-FPA, HOSPITALITY RECRUITER-BC Active Last Documented On 3 10:20AM ; [facility] Coronary Artery Disease Unknown LIAM G KU LP OPTOMETRIST-FPA, HOSPITALITY RECRUITER-BC Active Last Documented On 3 10:35AM ; [facility] Type 2 Diabetes with Diabeti c Neuropathy Unknown LIAM G NEEL OPTOMETRIST-FPA, HOSPITALITY RECRUITER-BC Active Last Documented On 3 12:11PM ; [facility] Type 2 Diabetes with Diabeti c Retinopathy Unknown LIAM G NEEL OPTOMETRIST-FPA, HOSPITALITY RECRUITER-BC Active Last Documented On 3 10:41AM ; [facility] End Stage Renal Disease Unknown ANTHONY SSA G NEEL OPTOMETRIST-FPA, HOSPITALITY RECRUITER-BC Active Last Documented On 3 10:41AM ; [facility] Note: on Dialysis Essential Hypertension Unknown JUAN ALBERTO SA G NELE OPTOMETRIST-FPA, HOSPITALITY RECRUITER-BC Active Last Documented On 3 10:41AM ; [facility] Plan of Treatment No Plan of Treatment Recorded Assessments Includes: Assessments from this encounter No Assessments Recorded Medical Equipment - Implanted Devices Includes: Current Devices No Medical Equipment Recorded Medications Includes: Medications discussed during this encounter and other current Medications Discontinued / Stopped on this date VALERY ROBINS on 05/25/2023 HYDROcodone-Acetaminophen 5- 325 MG Oral Tablet Provider: VALERY ROBINS Diagnosis: Low back pain, unspecified Last Documented On 4 10:31AM By LIAM RASMUSSEN ; [facility] New / Renewed during this visit VALERY ROBINS on 06/25/2023 HYDROcodone-Acetaminophen 5- 325 MG Oral Tablet Provider: VALERY ROBINS 30 day supply: 100 tablet, 0 refills Diagnosis: Low back pain, unspecified One tablet three to four jamarcus es a day as needed for severe pain [30 day script] Pharmacy: [facility] [address] [address] - Last Documented On 4 1:36PM By LIAM RASMUSSEN ; [facility] Current Medications (continue as prescribed) HYDROcodone-Acetaminophen 5- 325 MG Oral Tablet 08/24/2023 Provider: VALERY ROBINS Diagnosis: Low back pain, unspecified One tablet three to four jamarcus es a day as needed for severe pain [30 day script] Last Documented On 4 4:05PM By LIAM RASMUSSEN ; [facility] Diclofenac Sodium 1% External Gel 06/27/2023 Provider: VALERY HUNT Diagnosis: Pain in right kn ee apply to painful joint as ne eded three times daily Last Documented On 4 1:31PM By LIAM RASMUSSEN ; [facility] Pantoprazole Sodium 40 MG Oral Tablet Delayed Release 02/19/2023 Provider: Diagnosis: Last Documented On 3 10:37AM By LIAM RASMUSSEN ; [facility] hydrALAZINE HCl 50 MG Oral Tablet 02/11/2023 Provide r: Diagnosis: Last Documented On 3 10:38AM By LIAM NEEL [facility] [place] ; [facility] Losartan Potassium 50 MG Oral Tablet 02/11/2023 Prov ider: Diagnosis: Last Documented On 3 10:37AM By LIAM [facility] ; [facility] Eliquis 5 MG Oral Tablet 02/02/2023 Provider: Diagnosis: Last Documented On 3 10:37AM By LIAM [facility] ; [facility] Furosemide 80 MG Oral Tablet 02/02/2023 Provider: Diagnosis: Last Documented On 3 10:37AM By LIAM [facility] ; [facility] Amiodarone HCl 200 MG Oral Tablet 01/23/2023 Provide r: Diagnosis: Last Documented On 3 10:37AM By LIAM [facility] ; [facility] Atorvastatin Calcium 80 MG Oral Tablet 01/19/2023 Pr ovider: Diagnosis: Last Documented On 3 10:37AM By LIAM [facility] ; [facility] Brilinta 90 MG Oral Tablet 01/06/2023 Provider: Diagnosis: Last Documented On 3 10:37AM By LIAM NEEL [facility] [place] ; [facility] Isosorbide Mononitrate ER 30 MG Oral Tablet Extended Release 24 Hour 01/01/2023 Provider: Diagnosis: Last Documented On 3 10:37AM By LIAM SHAIKH [facility] [place] ; [facility] Cinacalcet HCl 90 MG Oral Tablet 07/26/2022 Provider : Diagnosis: Via Dialysis 3 times a week. Last Documented On 3 12:38PM By LIAM SHAIKH [facility] [place] ; [facility] Calcitonin ([place]) 200 UNIT/ML Injection Solution Provider: Diagnosis: VIA Dialysis Last Documented On 3 12:38PM By LIAM NEEL [facility] [place] ; [facility] Nitroglycerin 0.4 MG Sublingual Tablet Sublingual 07/04 Provider: Diagnosis: As needed. Last Documented On 3 12:38PM By LIAM RASMUSSEN ; [facility] Sevelamer Carbonate 800 MG Oral Tablet 07/26/2022 Pr ovider: Diagnosis: as needed. Last Documented On 3 12:38PM By LIAM RASMUSSEN ; [facility] Heparin Na (Pork) Lock Flsh PF 100 UNIT/ML Intravenous Solution 07/26/2022 Provider: Diagnosis: 600 unit / hr Via Dialysis Last Documented On 3 12:38PM By LIAM MANUELTOM ; [facility] Mircera 50 MCG/0.3ML Injection Solution Prefilled Syri nge 07/26/2022 Provider: Diagnosis: Every 2 weeks via dialysis Last Documented On 3 12:38PM By LIAM MANUELTOM ; [facility] NovoLOG FlexPen 100 UNIT/ML Subcutaneous Solution Pen-injector 05/17/2022 Provider: ARTURO Sanabria Diagnosis: As directed. Last Documented On 3 12:38PM By LIAM MANUELTOM ; [facility] Medications Administered Includes: Administered Medications from this encounter No Administered Medications Recorded Results Includes: Results discussed during this encounter No Results Recorded For Specified Dates History of Present Illness Includes: History of Present Illness from this encounter No History of Present Illness Recorded Social History Description Last Updated Tobacco non-user 05/16/2023 Last Documented On 4 9:53AM ; [facility] Amount of sleep 02/19/2023 Last Documented On 4 9:53AM ; [facility] Current smoker 02/19/2023 Last Documented On 4 9:53AM ; [facility] 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/26/2022 Last Documented On 4 9:53AM ; [facility] Alcohol 07/26/2022 Last Documented On 4 9:53AM ; [facility] Amount of alcohol per day: 2-3 a month 0 07/26/2022 Last Documented On 4 9:53AM ; [facility] Difficulty walking 07/26/2022 Last Documented On 4 9:53AM ; [facility] Drug use 07/26/2022 Last Documented On 4 9:53AM ; [facility] Type: Thc gummies 07/26/2022 Last Documented On 4 9:53AM ; [facility] Smoking Status Unknown Procedures and Surgical History Surgical History Last Updated No Pacemaker 07/26/2022 Last Documented On 4 9:53AM ; [facility] Medical History Includes: Medical History addressed during this encounter Description Last Updated No Pacemaker Cardiac Stent 02/19/2023 Last Documented On 4 9:53AM ; [facility] No Pain Pump Insulin Pump ~Hepatomegaly 11/27/2022 Last Documented On 4 9:53AM ; [facility] Please list all illnesses/co nditions you have been diagnosed with: Renal failure, CHF, ,HTN, IDDM, aortic aneurysm, arthritis, retinopathy, hearing loss, neuropathy, 10/03/2022 Last Documented On 4 9:53AM ; [facility] Please list all surgeries: L eft small toe amputation 2014 ~retina left and right 2015 &16 ~fistula 2017 x2 2020 x1 ~peritoneal port insertion and removal 2017& 2018 10/03/2022 Last Documented On 4 9:53AM ; [facility] 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 07/26/2022 Last Documented On 4 9:53AM ; [facility] Has had no fall in the last 12 months. 0 07/26/2022 Last Documented On 4 9:53AM ; [facility] Family History Includes: Family History addressed during this encounter Description Last Updated Family history of Arthritis 07/26/2022 Last Documented On 4 9:53AM ; [facility] Family history of ischemic heart disease 07/26/2022 Last Documented On 4 9:53AM ; [facility] Family history of stroke/paralysis 07/26 Last Documented On 4 9:53AM ; [facility] Maternal history of family history of is chemic heart disease 07/26/2022 Last Documented On 4 9:53AM ; [facility] Maternal history of family history of ki dney disease 07/26/2022 Last Documented On 4 9:53AM ; [facility] Maternal history of stroke/paralysis Last Documented On 4 9:53AM ; [facility] Paternal history of Arthritis 07/26/2022 Last Documented On 4 9:53AM ; [facility] Paternal history of family history of is chemic heart disease 07/26/2022 Last Documented On 4 9:53AM ; [facility] Review of Systems Includes: Review of Systems [...] tive Last Documented On 4 1:15PM ; [facility] Levaquin Allergy 07/26/2022 Active Last Documented On 4 1:15PM ; [facility] Doxycycline Hyclate Allergy 06/27/2023 Active Last Documented On 4 1:15PM ; [facility] Coreg Allergy 07/26/2022 Active Last Documented On 4 1:15PM ; [facility] Carvedilol Allergy 06/27/2023 Active Last Documented On 4 1:17PM ; [facility] Encounters Encounter Provider Location Date Check-In Time Check-Out Time Diagnosis RX ISSUE/REFILL LIAM SHAIKH OPTOMETRIST-FPA, HOSPITALITY RECRUITER-BC 06/25/2023 9:53AM 11:59PM Insurance Includes: Active Insurance Policies Plan Name Member ID Group # Subscriber Relationship Effect jesus Dates 1 - [facility] [id number] CROCKER III Self Clinical Notes Includes: Clinical Notes from this encounter * Progress note Date Encounter Last Documented by 06/25/2023 RX ISSUE/REFILL Last documented on 06/25/2023; 10:32 AM, LIAM SHAIKH APRN-FPA, HOSPITALITY RECRUITER-BC; [facility] Active Problems & Conditions - [...] day 3 days, 0 refills - Calcitonin ([place]) 200 UNIT/ML Injection Solution VIA Dialysis, 0 [...] 0 days, 0 refills - Polymyxin B-Trimethoprim 53423-8.1 UNIT/ML-% Ophthalmic Solution 2 drops to affected [...] 2020 x1 peritoneal port insertion and removal 2016& 2017. Medical: No Spinal cord stimulator and no [...] gummies. Habits: Amount of sleep. 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 Allergies - Coreg - Levaquin - Morphine [...] Care Team - YUE LOVETT MD - Map Clerk - ARTURO AMOR DO - Primary Care Health Reminders - Assess Tobacco Use satisfied 06/25/2023.
--- OUTSIDE RECORDS SUMMARY | 2024-05-23 12:53 | XMS_ITS | Encounter Summary ---
Author Organization [facility] Address [address] [place] [address] Care Team Providers Care Button Tacker Name Role Phone Simon Field MD Unavailable [phone] Kiko Snyder MD Unavailable [phone] Merline Fair MD Unavailable Juhi Bassett [facility] Primary Care Provider [phone] Christopher Stone MD Unavailable [phone] Ankur Jorge [facility] Primary Care Provider [phone] Encounter Details Date Type Department Care Team (Late st Contact Info) Description 06/29/2022 Hospital Follow-up Call [facility] [address] [place] [address] Sarina Rivers, RN Social History Tobacco Use Types Packs/Day Years Used Date Smoking Tobacco: Former Smokeless Tobacco: Never Alcohol Use Standard Drinks/Week Comments Yes 0 (1 standard drink = 0.6 oz pur e alcohol) 1-2/week Humiliation, Afraid, Rape, and Kick questionnair e Answer Date Recorded Within the last year, have y ou been afraid of your partner or ex-partner? Patient declined 05/26/2022 Within the last year, have y ou been humiliated or emotionally abused in other ways by your partner or ex-partner? Patient declined 05/26/2022 Within the last year, have y ou been kicked, hit, slapped, or otherwise physically hurt by your partner or ex-partner? Patient declined 05/26/2022 Within the last year, have y ou been raped or forced to have any kind of sexual activity by your partner or ex-partner? Patient declined 05/26/2022 Overall Financial Resource Strain (CARDIA) Answe r Date Recorded How hard is it for you to pa y for the very basics like food, housing, medical care, and heating? Patient declined 05/26/2022 Hunger Vital Sign Answer Date Recorded Within the past 12 months, y ou worried that your food would run out before you got the money to buy more. Patient declined Within the past 12 months, t he food you bought just didn't last and you didn't have money to get more. Patient declined PRAPARE - Transportation Answer Date Re corded In the past 12 months, has l ack of transportation kept you from medical appointments or from getting medications? Patient declined 05/26/2022 In the past 12 months, has l ack of transportation kept you from meetings, work, or from getting things needed for daily living? Patient declined 05/26/2022 Housing Stability Vital Sign Answer Luis e Recorded In the last 12 months, was t here a time when you were not able to pay the mortgage or rent on time? Patient refused 05/27/19 23 In the last 12 months, how many places have you lived? 1 05/26/2022 In the last 12 months, was t here a time when you did not have a steady place to sleep or slept in a custodial (including now)? 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 No / Unsure 06/24/2022 8:45 PM CDT documented as of this encounter Functional Status * Are you deaf or do you have serious difficulty hearing Answer Date of Assessment Author Status Yes 06/24/2022 9:05 PM CDT Elisa Gil RN Active * Are you blind or do you have serious difficulty seeing, even when wearing glasses? Answer Date of Assessment Author Status No 06/24/2022 9:05 PM CDT Elisa Gil RN Active * Do you have serious difficulty walking or climbing stairs? Answer Date of Assessment Author Status No 06/24/2022 9:05 PM CDT Elisa Gil RN Active * Do you have difficulty dressing or bathing? Answer Date of Assessment Author Status No 06/24/2022 9:05 PM CDT Elisa Gil RN Active * Because of a physical, mental, or emotional condition, do you have difficulty doing errands alone such as visiting a doctor's office or shopping? Answer Date of Assessment Author Status No 06/24/2022 9:05 PM CDT Elisa Gil RN Active documented as of this encounter Mental Status * Because of a physical, mental, or emotional condition, do you have serious difficulty concentrating, remembering, or making decisions? Answer Entry Date Author Status No 06/24/2022 9:05 PM CDT Elisa Gil RN Active documented in this encounter Plan of Treatment Upcoming Encounters Date Type Department Care Team (Late st Contact Info) Description 05/26/2024 1:15 PM CDT Appointment [facility] [address] [place] [address] Merline Fair MD [address] [place] [id number] 05/26/2024 1:30 PM CDT Office Visit [facility] [address] [place] [phone] Merline Fair MD [address] [place] [address] documented as of this encounter Goals Goal Patient Goal Type Associated Problems Recent Progress Patient-Stated? Author Safety Patient/family will have appropriate support at home upon discharge General Bev Monk, RN Safety Patient/family will have appropriate support at home upon discharge Lifestyle Christel Stahl, ORTEGA documented as of this encounter Visit Diagnoses Not on filedocumented in this encounter Additional Health Concerns Infection Onset Date Last Indicated Resolved Time COVID-19 Rule Out 02/26/2024 02/26/2024 02/26/2024 5:21 PM COMPUTER OPERATIONS SUPERVISOR COVID-19 Rule Out 02/27/2024 02/27/2024 02/27/2024 4:21 PM COMPUTER OPERATIONS SUPERVISOR documented as of this encounter Care Teams Button Tacker Relationship Specialty Start Date End Date Juhi Bassett FNP [address] [place] [id number] PCP - General NURSE PRACTITIONER 03/03/21 12/11/22 Ankur Jorge FNP [address] [place] [phone] PCP - General Nurse Practitioner Family 12/12/22 Simon Field MD [address] [place] [address] FAMILY PRACTICE 12/23/20 Kiko Snyder MD [address] [place] [address] Consulting Physician ORTHOPAEDIC SPINE SURGERY 10/03/17 Merline Fair MD [address] [place] [address] Consulting Physician CARDIOVASCULAR DISEASE 12/15/20 Christopher Stone MD [address] [place] [id number] Consulting Physician INTERVENTIONAL CARDIOLOGY 06/25/22 documented as of this encounter
--- OUTSIDE RECORDS SUMMARY | 2024-05-23 12:53 | XMS_ITS | Encounter Summary ---
Author Organization [facility] Address [address] [place] [address] Care Team Providers Care Script Manager Name Role Phone Simon Field MD Unavailable [phone] Kiko Snyder MD Unavailable [phone] Merline Fair MD Unavailable Christopher Stone MD Unavailable [phone] Ankur Jorge Primary Care Provider [phone] Reason for Visit * Reason Onset Date Comments Medication 01/15/2023 Encounter Details Date Type Department Care Team ([facility] Contact Info) Description 01/15/2023 [facility] [address] [place] [address] Merline Fair MD [address] [place] [address] Medication Social History Tobacco Use Types Packs/Day Years [...] often do you attend chur ch or jehovah's witness services? 1 to 4 times per year [...] care, and heating? Not very hard 01/04/2023 [facility] [place] [facility] Occupat ional Health - Occupational Stress [...] place to sleep or slept in a mcc (including now)? 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 Answer Entry Date Author Status No 01/04/2023 10:00 PM CDT Rachel Amaya RN Active documented in this encounter Progress Notes * Bryan Poole LPN - 01/16/2023 12:52 PM CST Addressed in another encounter. HER LOADER EQUIPMENT OPERATOR * Marilynn Maurice - 01/15/2023 2:28 PM CST VM DATE/TIME:01/15/2023 at 1:24 pm CALLER: pt(judy) PH #: [phone] PROVIDER/NEW PT: REASON FOR CALL: pt has been having bad headaches. Pt blood pressure has been running high. Pt is wanting to switch his blood pressure medicine. REQUEST HANDLED AND HOW: sent to nurse HER LOADER EQUIPMENT OPERATOR documented in this encounter Plan of Treatment Upcoming Encounters Date Type Department Care Team (Late st Contact Info) Description 05/26/2024 1:15 PM CDT Appointment [facility] [address] [place] [address] Merline Fair MD [address] [place] [address] 05/26/2024 1:30 PM CDT Office Visit [facility] [address] [place] [address] Merline Fair MD [address] [place] [address] documented as of this encounter Goals Goal [...] Rule Out 02/26/2024 02/26/2024 02/26/2024 5:21 PM CRUSHER LOADER EQUIPMENT OPERATOR COVID-19 Rule Out 02/27/2024 02/27/2024 02/27/2024 4:21 PM CRUSHER LOADER EQUIPMENT OPERATOR documented as of this encounter Care Teams Script Manager Relationship Specialty Start Date End Date Ankur Jorge FNP [address] [place] [phone] PCP - General Nurse Practitioner Family 12/12/22 Simon Field MD [address] [place] [address] FAMILY PRACTICE 12/23/20 Kiko Snyder MD [address] [place] [phone] Consulting Physician ORTHOPAEDIC SPINE SURGERY 10/03/17 Merline Fair MD [address] [place] [address] Consulting Physician CARDIOVASCULAR DISEASE 12/15/20 Christopher Stone MD [address] [place] [address] Consulting Physician INTERVENTIONAL CARDIOLOGY 06/25/22 documented as of this encounter
--- OUTSIDE RECORDS SUMMARY | 2024-05-23 12:53 | XMS_ITS | Clinical Summary ---
Author Organization [facility] Address [facility] [place] [address] Care Team Providers Care Propulsion Generator Repairer Name Role Phone Simon Field MD Unavailable [phone] Kiko Snyder MD Unavailable [phone] Merline Fair MD Unavailable Christopher Stone MD Unavailable [phone] Ankur Jorge BUILDING CONSTRUCTION TEACHER Primary Care Provider [phone] Allergies Active Allergy Reactions Criticality Noted Date Comments Amlodipine Hives,Itching,Swelli ng Medium 10/12/2017 Increased pedal edema Carvedilol Anxiety Low 05/25/2022 Codeine Nausea and Vomiting 03/27/2021 Daptomycin Other (see comment) Medium 11/23/2017 Rhabdomyolysis Levofloxacin Hives,Rash High 02/14/2013 Lisinopril Swelling 12/23/2020 Lisinopril-Hydrochlorot hiazide Swelling 08/16/2021 Morphine Hives,Itching 12/23/2020 Amlodipine Swelling 12/23/2020 Medications Insulin Pen Needle (PEN NEEDLES 29GX1/2 ) 29G X 12MM Misc 1 Application by Does not apply route 3 (three) times daily with meals. 50 each 03/08/19 Active Blood Glucose Monitoring Suppl (OPTUMRX BLOOD GLUCOSE METER) w/Device KitIndications:Un controlled type 1 diabetes mellitus with hyperglycemia (CMS/HCC HHS/HCC) 1 each by Does not apply route 4 (four) times daily with meals and nightly. 1 kit 03/26/19 Active insulin aspart (NOVOLOG) 100 UNIT/ML injection (VIAL) Inject into the skin 3 (three) times daily before meals. Active Continuous Blood Gluc Sensor (FREESTYLE SHERYL 2 SENSOR) [facility] see administration instructions. 08/05/19 Active hydrALAZINE (APRESOLINE) 25 MG tablet Take 4 tablets (100 mg total) by mouth 2 (two) times daily. 08/07/19 Active NOVOLOG FLEXPEN 100 UNIT/ML injection (PEN) INJECT SUBCUTANEOUSLY PER SLIDING SCALE THREE TIMES DAILY MAXIMUM OF 15 UNITS DAILY 05/18/19 Active nitroglycerin (NITROSTAT) 0.[address] 1 tablet (0.4 mg total) under the tongue every 5 (five) minutes as needed for Chest Pain. Maximum of 3 doses. 25 tablet 1 12/16/19 Active isosorbide mononitrate ER (IMDUR) 30 MG 24 hr tablet Take 1 tablet (30 mg total) by mouth daily. 30 tablet 11 01/02/20 Active losartan (COZAAR) 50 MG tablet Take 1 tablet (50 mg total) by mouth daily. 01/17/20 Active atorvastatin (LIPITOR) 80 MG tabletIndications :cholesterol Take 1 tablet (80 mg total) by mouth daily. Indications: cholesterol 90 tablet 3 01/20/20 Active amiodarone (PACERONE) 200 MG tablet Take 1 tablet (200 mg total) by mouth daily. Next refill from cardiology 90 tablet 3 01/24/20 Active apixaban (ELIQUIS) 5 MG tablet Take 1 tablet by mouth twice daily 60 tablet 11 03/28/19 Active HYDROcodone-aceta minophen (NORCO) 5-325 MG tablet Take 1 tablet by mouth every 6 (six) hours as needed for Pain. Active calcitriol (ROCALTROL) 0.25 MCG capsule Take 5 capsules (1.25 mcg total) by mouth 3 (three) times a week. Active Methoxy PEG-Epoetin Beta (MIRCERA) 30 MCG/0.3ML Solution Prefilled Syringe Inject as directed every 28 days. Active iron sucrose (VENOFER) 20 MG/ML injection Inject 5 mLs (100 mg total) into the vein once a week. Active ticagrelor (BRILINTA) 90 mg tablet Take 1 tablet by mouth twice daily 180 tablet 3 07/06/19 24 Active vitamin D3 (CHOLECALCIFEROL) 125 mcg Tab Take 1 tablet (125 mcg total) by mouth daily. Active cinacalcet (SENSIPAR) 60 MG Tab Take 1 tablet (60 mg total) by mouth daily. Active levothyroxine (SYNTHROID) 25 MCG tablet 11/24/19 24 Active metoprolol tartrate (LOPRESSOR) 25 MG tablet Take 0.5 tablets (12.5 mg total) by mouth 2 (two) times daily. 11/21/19 24 Active ondansetron (ZOFRAN) 4 MG tablet Take 1 tablet (4 mg total) by mouth every 8 (eight) hours as needed for Nausea. 20 tablet 03/11/19 25 Active oxyCODONE immediate release (ROXICODONE) 5 MG immediate release tabletIndications :Acute Pain < 3 Day Supply Take 1 tablet (5 mg total) by mouth every 6 (six) hours as needed for Pain. Indications: Acute Pain < 3 Day Supply 3 tablet 05/11/19 25 025 Active Problems Problem Noted Date Diagnosed Date CHF (congestive heart failure) ([facility]) 09/03/2023 Elevated troponin 08/20/2023 Atrial fibrillation with rap id ventricular response ([facility]) 12/10/2022 Unstable angina ([facility]) 06/24/2022 Fall 05/25/2022 Closed fracture of transvers e process of lumbar vertebra ([facility]) 05/25/2022 Fall in (into) shower or empty bathtub, initial encounter 05/25/2022 NSTEMI (non-ST elevated myoc ardial infarction) ([facility]) 05/09/2022 Chest pain 03/23/2021 Acute hematogenous osteomyel itis of right foot ([facility]) 03/02/2021 Hyperkalemia 08/19/2019 Dialysis AV fistula malfunction, initial encount er 07/16/2019 ESRD (end stage renal disease) ([facility]) 07/16/2019 Renal failure 11/11/2018 Sepsis due to urinary tract infection ([facility]) 05/25/2018 UTI (urinary tract infection) 05/25/2018 Hyperglycemia 01/07/2018 CHF exacerbation ([facility]) 12/30/2017 Fluid overload 12/23/2017 Herpes zoster without complication 12/23/2017 Wound infection 11/23/2017 Soft tissue swelling of back 10/20/2017 Type 2 diabetes mellitus wit h chronic kidney disease on chronic dialysis ([facility]) 10/13/2017 Essential hypertension 10/13/2017 Mixed hyperlipidemia 10/13/2017 Right lower quadrant abdominal pain 10/13/2017 ESRD on hemodialysis ([facility]) 8 S/P spinal fusion 10/13/2017 Hepatomegaly 10/13/2017 Back pain, acute 10/13/2017 S/P lumbar spinal fusion 10/03/2017 Osteomyelitis ([facility]) 10/03/2017 Chronic osteomyelitis ([facility]) 09/26/19 18 Back pain 09/18/2017 Discitis of thoracolumbar region 09/18/2017 Fever 07/19/2017 Intractable back pain 06/23/2017 Bacteremia 06/08/2017 ESRD on dialysis ([facility]) 06/08/2017 Overview (06/08/2017): On HD TThSat - follows with Sp clinic Nephro Chronic bilateral low back pain without sciatica 06/08/2017 DM type 1 (diabetes mellitus, type 1) ([facility]) 06/08/2017 Right knee pain 03/22/2017 Acute foot pain, left 03/22/2017 Resolved Problems Problem Noted Date Diagnosed Date Resolved Date Chest pain 02/03/2020 03/23/2021 Encounters Date Type Department Care Team Description 05/20/2024 2:45 AM CDT - 05/20/2024 12:30 PM CDT Emergency [facility] [address] [place] [address] Lesly Clifton DO Hughes, Raymond G, DO Shortness Of Breath Discharge Disposition: Left Against Medical Advice 05/20/2024 Travel 05/10/2024 7:43 PM CARTON MACHINE OPERATOR - 05/10/2024 9:13 PM [facility] Emergency [facility] [address] [place] [address] Yunior Hernández DO Fall; Hip Pain Discharge Disposition: Home or Self Care (Routine Discharge) 05/10/2024 Travel 05/02/2024 3:44 PM CARTON MACHINE OPERATOR Anesthesia Event [facility] [address] [place] [address] [place] [address] Mimi Lang, VENEER JOINTER OFFBEARER 05/02/2024 2:15 PM CARTON MACHINE OPERATOR - 05/02/2024 6:52 PM [facility] Emergency [facility] [address] [place] [address] [place] [address] Milagro Jerome DO Chest Pain Discharge Disposition: Home or Self Care (Routine Discharge) 05/02/2024 Travel 03/20/2024 9:00 AM CARTON MACHINE OPERATOR - 03/20/2024 11:59 PM [facility] Hospital Encounter [facility] [address] [place] [address] [place] [address] Venecia Alicia, BUILDING CONSTRUCTION TEACHER Discharge Disposition: Home or Self Care (Routine Discharge) 03/20/2024 Travel 03/12/2024 2:45 PM CARTON MACHINE OPERATOR Anesthesia Event [facility] [address] [place] [address] [place] [address] Willem Villalobos, VENEER JOINTER OFFBEARER 03/12/2024 12:01 PM CARTON MACHINE OPERATOR - 03/12/2024 3:29 PM [facility] Emergency [facility] [address] [place] [address] [place] [address] Taras Seaman DO Weakness Discharge Disposition: Transfer to [facility] 03/12/2024 Travel 03/11/2024 8:29 PM CARTON MACHINE OPERATOR - 03/11/2024 9:50 PM [facility] Emergency [facility] [address] [place] [address] [place] [address] Tejas Freitas MD Flu Like Symptoms Discharge Disposition: Home or Self Care (Routine Discharge) 03/11/2024 Travel 02/27/2024 9:18 AM CARTON MACHINE OPERATOR - 02/27/2024 1:25 PM [facility] Emergency [facility] [address] [place] [address] [place] [address] Lesly Clifton DO URI Discharge Disposition: Another Health Care Institution Not Defined 02/26/2024 4:18 PM CARTON MACHINE OPERATOR - 02/26/2024 7:40 PM [facility] Emergency [facility] [address] [place] [address] Destini Reis MD Fever; Vomiting Discharge Disposition: Left Against Medical Advice 02/26/2024 Travel from Last 3 Months Immunizations Name Administration Dates Next Due Tdap (Boostrix) 05/25/2022 Family History Medical History Relation Comments Arthritis Father CHF Father Cancer Father Hypertension Father Diabetes Maternal Grandfather Heart Disease Maternal Grandfather Diabetes Maternal Grandmother Cancer Mother Diabetes Mother Heart Attack Mother Heart Disease Mother Hypertension Mother Open Heart Mother Stent Cardiac Mother Stroke Mother Vision loss Mother amputation- BL BKA Mother Arthritis Paternal Grandfather Cancer Paternal Grandfather Diabetes Paternal Grandfather Heart Disease Paternal Grandfather Hypertension Paternal Grandfather Open Heart Paternal Grandfather Valve Disease Paternal Grandfather Arthritis Paternal Grandmother Relation Status Comments Father Maternal Grandfather dementia Maternal Grandmother Mother Paternal Grandfather Paternal Grandmother Social History Tobacco Use Types Packs/Day Years Used Date Smoking Tobacco: Former Smokeless Tobacco: Never Tobacco Cessation:Counseling Given: Not Answered Alcohol Use Standard Drinks/Week Comments Not Currently 0 (1 standard drink = 0.6 oz pur e alcohol) 1-2/week [facility] AddSearchities Answer Date Recorded In the past 12 months has e [employer], gas, oil, or water [employer] threatened to shut off services in your [...] often do you attend chur ch or islam services? 1 to 4 times per year 01/04/2023 Do you belong to any clubs o r organizations such as buddhist groups, unions, fraternal or athletic groups, or [...] and heating? Not hard at all 09/04/2023 [facility] - Occupational [...] place to sleep or slept in a fdc (including now)? No 04/08/2023 Housing Stability Vital Sign Answer Luis e Recorded In the last 12 months, was t here a time when you were not able to pay the mortgage or rent on time? No 09/04/2023 In the past 12 months, how m any times have you moved where you were living? 1 09/04/2023 At any time in the past 12 m [facility], were you homeless or living in a fdc (including now)? 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 Not on file Not on file Last Filed Vital Signs Vital Sign Reading Time Taken Comments Blood Pressure 146/74 05/20/2024 12:00 PM CDT Pulse 67 05/20/2024 12:00 PM CDT Temperature 35.9 C (96.7 F) 05/20/2024 5:30 AM CDT Respiratory Rate 16 05/20/2024 12:00 PM CDT Oxygen Saturation 97% 05/20/2024 12:00 PM CDT Inhaled Oxygen Concentration - - Weight 92 kg (202 lb 13.2 oz) 05/20/2024 2:59 AM CDT Height 182.9 cm (6') 05/20/2024 2:59 AM CDT Body Mass Index 27.51 05/20/2024 2:59 AM CDT Plan of Treatment Upcoming Encounters Date Type Department Care Team (Late st Contact Info) Description 05/26/2024 1:15 PM CDT Appointment [facility] [address] [place] [address] Merline Fair MD [address] [place] [address] 05/26/2024 1:30 PM CDT Office Visit [facility] [address] [place] [phone] Merline Fair MD [address] [place], [place] [id number] Health Maintenance Due Date Last Done Comments Colorectal Cancer Screening Colonoscopy (10 Years) 1978 Annual Physical 1981 Diabetes: Retinopathy Eye Exam 02/24/1996 Hepatitis B Vaccines (1 of 3 - 19+ 3-dose series) 1997 Pneumococcal Vaccine: Pediatrics (0 to 5 Years) and At-Risk Patients (6 to 64 Years) (2 of 2 - PCV) 09/20/2023 09/19/2022 COVID-19 Vaccine ( - 2023- season) 2023 Lipid Panel 08/20/2024 08/21/2023, 11/0 05/2022, 05/09/2022, Additional history exists Hemoglobin A1C 08/28/2024 02/28/2024, 11/03, 09/03/2023, Additional history exists DTaP, Tdap and Td Vaccines (2 - Td or Tdap) 05/25/2032 05/25/2022 Influenza Adult Completed 12/31/2023 Hepatitis C Completed 02/27/2024, 02/03, 08/16/2021, Additional history exists Meningococcal B Vaccine Aged Out No l onger eligible based on patient's age to complete this topic Meningococcal Vaccine Aged Out No chyna juan francisco eligible based on patient's age to complete this topic RSV Immunizations Under 20 Months Aged Out No longer eligible based on patient's age to complete this topic Goals Goal Patient Goal Type Associated Problems Recent Progress Patient-Stated? Author Safety Patient/family will have appropriate support at home upon discharge General No Yana, Bev L, RN Safety Patient/family will have appropriate support at home upon discharge Lifestyle Christel Stahl RN Medical Devices Implanted Type Area Abattoir Supervisor Device Identifier Shelf Expiration Date Model / Serial / Lot Cv Synergy 3.0mm X 32mm Ovidio Mid Rca-01/05/2023 Implanted:05/2022 by Marco Cherry MD (Quantity not on file) Stent Coronary RCA Cloud [employer] SIDDHARTHA 10/06/2023 [id number] / / [id number] Cv [facility] Ovidio-Rca- 024 Implanted:08/03 by Germán Johnson MD (Quantity not on file) Stent Coronary RCA BIOT[employer]IK 03/29/2025 [id number] / / [id number] Tissue Surgiflo 8ml - [id number] Implanted:Qty: 3 on 10/05/2017 by Kiko Snyder MD at [facility] N/A: Back [employer] 07/03/2019 [id number] / / [id number] Graft Infuse Bone Small - [id number] Implanted:Qty: 2 on 10/05/2017 by Kiko Snyder MD at [facility] N/A: Back [employer] 06/02/2018 [id number] / / [id number] Screw Medtronic 6.5 X 45mm - [id number] Implanted:Qty: 8 on 10/05/2017 by Kiko Snyder MD at [facility] N/A: Spine Lumbar [employer] [id number] / / Medtronic 13 X 17 X 9 Oviod Pyramesh Implanted:Qty: 1 on 10/05/2017 by Kiko Snyder MD at [facility] N/A: Spine Lumbar [employer] [id number] / / Massimo Medtronic 100mm - [id number] Implanted:Qty: 2 on 10/05/2017 by Kiko Snyder MD at [facility] N/A: Spine Lumbar [employer] [id number] / / 39 Mm X -10 Crosslink Implanted:Qty: 1 on 10/05/2017 by Kiko Snyder MD at [facility] N/A: Spine Lumbar [employer] [id number] / / Screw Set Medtronic - [id number] Implanted:Qty: 8 on 10/05/2017 by Kiko Snyder MD at [facility] N/A: Spine Lumbar [employer] [id number] / / Explanted Type Area Abattoir Supervisor Device Identifier Shelf Expiration Date Model / Serial / Lot Medtronic 17 X 22 X 10 Pyramesh Explanted:Qty: 1 on 10/05/2017 by Kiko Snyder MD at [facility] N/A: Spine Lumbar [employer] [id number] / / Description:Wrong size Procedures Procedure Name Priority Date/Time Associated Diagnosis Comments TROPONIN, QUANT STAT 05/20/2024 3:21 AM CDT COMPREHENSIVE METABOLIC PANEL STAT 05/20/2024 3:21 AM CDT CBC W/DIFF AUTOMATED STAT 05/20/2024 3:21 AM CDT XR CHEST PORTABLE STAT 05/20/2024 3:0 7 AM CDT ECG 12-LEAD Routine 05/20/2024 2:54 AM CDT XR PELVIS 1 OR 2 VIEWS STAT 8:29 PM CARTON MACHINE OPERATOR XR HIP RT 2V STAT 05/10/2024 8:29 PM CARTON MACHINE OPERATOR TROPONIN, QUANT STAT 05/02/2024 5:17 PM CARTON MACHINE OPERATOR XR CHEST PA+LAT STAT 05/02/2024 4:16 PM CARTON MACHINE OPERATOR LACTIC ACID W REFLEX (SEPSIS) STAT 05/02/2024 3:46 PM CARTON MACHINE OPERATOR TROPONIN, QUANT STAT 05/02/2024 3:46 PM CARTON MACHINE OPERATOR COMPREHENSIVE METABOLIC PANEL STAT 05/02/2024 3:46 PM CARTON MACHINE OPERATOR CBC W/DIFF AUTOMATED STAT 05/02/2024 3:46 PM CARTON MACHINE OPERATOR IV PLACEMENT Routine 05/02/2024 3:44 PM CARTON MACHINE OPERATOR ECG 12-LEAD Routine 05/02/2024 2:16 PM CARTON MACHINE OPERATOR IV PLACEMENT Routine 03/12/2024 2:15 PM CARTON MACHINE OPERATOR CT ABD+PEL WO CON STAT 03/12/2024 1:4 9 PM CARTON MACHINE OPERATOR ECG 12-LEAD Routine 03/12/2024 1:06 PM CARTON MACHINE OPERATOR XR CHEST PORTABLE STAT 03/12/2024 1:0 0 PM CARTON MACHINE OPERATOR MAGNESIUM STAT 03/12/2024 12:37 PM CARTON MACHINE OPERATOR LACTIC ACID W REFLEX (SEPSIS) STAT 03/12/2024 12:37 PM CARTON MACHINE OPERATOR LIPASE STAT 03/12/2024 12:37 PM CARTON MACHINE OPERATOR TROPONIN, QUANT STAT 03/12/2024 12:37 PM CARTON MACHINE OPERATOR HEPATIC FUNCTION PANEL STAT 12:37 PM CARTON MACHINE OPERATOR BASIC METABOLIC PANEL STAT 03/12/2024 12:37 PM CARTON MACHINE OPERATOR CBC W/DIFF AUTOMATED STAT 03/12/2024 12:37 PM CARTON MACHINE OPERATOR XR FOOT RT 3V STAT 03/11/2024 9:22 PM CARTON MACHINE OPERATOR CULTURE, BACTERIA, BLOOD STAT 03/11/2024 8:57 PM CARTON MACHINE OPERATOR LACTIC ACID W REFLEX (SEPSIS) STAT 03/11/2024 8:57 PM CARTON MACHINE OPERATOR COMPREHENSIVE METABOLIC PANEL STAT 03/11/2024 8:57 PM CARTON MACHINE OPERATOR CBC W/DIFF AUTOMATED STAT 03/11/2024 8:57 PM CARTON MACHINE OPERATOR ECG 12-LEAD STAT 02/27/2024 11:09 AM CARTON MACHINE OPERATOR INFLUENZA A & B STAT 02/27/2024 10:20 AM CARTON MACHINE OPERATOR ECG 12-LEAD STAT 02/27/2024 10:10 AM CARTON MACHINE OPERATOR TROPONIN, QUANT STAT 02/27/2024 9:57 AM CARTON MACHINE OPERATOR COMPREHENSIVE METABOLIC PANEL STAT 02/27/2024 9:57 AM CARTON MACHINE OPERATOR CBC W/DIFF AUTOMATED STAT 02/27/2024 9:57 AM CARTON MACHINE OPERATOR CRITICAL CARE Routine 02/27/2024 9:45 AM CARTON MACHINE OPERATOR XR CHEST PA+LAT STAT 02/27/2024 9:36 AM CARTON MACHINE OPERATOR ECG 12-LEAD Routine 02/26/2024 5:49 PM CARTON MACHINE OPERATOR POTASSIUM, SERUM STAT 02/26/2024 5:44 PM CARTON MACHINE OPERATOR LIPASE STAT 02/26/2024 5:07 PM CARTON MACHINE OPERATOR COMPREHENSIVE METABOLIC PANEL STAT 02/26/2024 5:07 PM CARTON MACHINE OPERATOR CBC W/DIFF AUTOMATED STAT 02/26/2024 5:07 PM CARTON MACHINE OPERATOR XR CHEST PA+LAT STAT 02/26/2024 4:58 PM CARTON MACHINE OPERATOR RESP SYNCYTIAL VIRUS STAT 02/26/2024 4:40 PM CARTON MACHINE OPERATOR INFLUENZA A & B STAT 02/26/2024 4:40 PM CARTON MACHINE OPERATOR CORONAVIRUS (COVID-19) ANTIGEN STAT 02/26/2024 4:40 PM CARTON MACHINE OPERATOR HEMOGLOBIN, GLYCOSYLATED Routine 09/03/2023 5:05 PM CDT LIPID PANEL Routine 08/21/2023 7:47 AM CDT from Last 3 Months or Most Recently Relevant to Health Maintenance Results * (ABNORMAL) COMPREHENSIVE METABOLIC PANEL (05/20/2024 3:21 AM CDT) Only the most recent of5 resultswithin the time period is included. Pathologist [facility] SODIUM S/P/B 129(L) 136 - 145 MMOL/L 05/20/2024 3:49 AM CDT [facility] POTASSIUM S/P/B 5.8(H) 3.5 - 5.1 MMOL/L 05/20/2024 3:49 AM CDT [facility] CHLORIDE S/P/B 91(L) 98 - 107 MMOL/L 05/20/2024 3:49 AM CDT [facility] CO2 28.2 21.0 - 32.0 MMOL/L 05/20/2024 3:49 AM CDT [facility] GLUCOSE 399(H) 70 - 99 MG/DL 05/20/2024 3:49 AM CDT [facility] Comment: FASTING GLUCOSE 100 TO 125 MG/DL IS CONSISTENT WITH IMPAIRED FASTING GLUCOSE. FASTING GLUCOSE >125 MG/DL IS CONSISTENT WITH DIABETES. RANDOM GLUCOSE >200 MG/DL WITH HYPERGLYCEMIC SYMPTOMS IS CONSISTENT WITH DIABETES. PER ADA GUIDELINES BUN 62(H) 6 - 24 MG/DL 05/20/2024 3:49 AM CDT [facility] CREATININE S/P/B 8.70(H) 0.70 - 1.30 MG/DL 05/20/2024 3:49 AM CDT [facility] CALCIUM S/P/B 7.6(L) 8.4 - 10.5 MG/DL 05/20/2024 3:49 AM CDT [facility] BILIRUBIN TOTAL S/P/B 0.5 0.2 - 1.0 MG/DL 05/20/2024 3:49 AM CDT [facility] Comment: THIS ASSAY IS NOT RECOMMENDED FOR PATIENTS UNDERGOING TREATMENT WITH ELTROMBOPAG DUE TO THE POTENTIAL FOR FALSELY ELEVATED RESULTS. ALKALINE PHOSPHATASE S/P/B 434(H) 45 - 115 U/L 05/20/2024 3:49 AM CDT [facility] AST 12(L) 15 - 37 U/L 05/20/2024 3:49 AM CDT [facility] ALT 18 16 - 63 U/L 05/20/2024 3:49 AM CDT [facility] TOTAL PROTEIN S/P/B 6.7 6.4 - 8.2 G/DL 05/20/2024 3:49 AM CDT [facility] ALBUMIN S/P/B 3.3(L) 3.4 - 5.0 G/DL 05/20/2024 3:49 AM CDT [facility] ANION GAP 9.8 5.0 - 15.0 MMOL/L 05/20/2024 3:49 AM CDT [facility] OSMOLALITY (CALC) 302 MOSM/KG 025 3:49 AM CDT [facility] Comment:REFERENCE RANGE NOT ESTABLISHED GFR ESTIMATE 7(L) >89 ML/MIN/1. 73 M2 05/20/2024 3:49 AM T [facility] GFR NOTES GFR REFERENCE S: 05/20/2024 3:49 AM T [facility] Comment: THE ESTIMATED GFR IS CALCULATED USING THE 2020 CKD-EPI EQUATION. THE FOLLOWING CATEGORIES FOR GRADING RENAL FUNCTION ARE RECOMMENDED BY THE INTERNATIONAL SOCIETY OF NEPHROLOGY (KDIGO 2012 CLINICAL PRACTICE GUIDELINE). G1,NORMAL OR HIGH: >89 ml/min/1.73 m2 G2,MILDLY DECREASED: 60-89 ml/min/1.73 m2 G3A,MILDLY TO MODERATELY DECREASED: 45-59 ml/min/1.73 m2 G3B,MODERATELY TO SEVERELY DECREASED: 30-44 ml/min/1.73 m2 G4,SEVERELY DECREASED: 15-29 ml/min/1.73 m2 G5,KIDNEY FAILURE: <15 ml/min/1.73 m2 05/20/2024 3:21 AM CDT [facility] LABORATORY Final Result [facility] [address] [facility] [place] [address], * (ABNORMAL) CBC W/DIFF AUTOMATED (05/20/2024 3:21 AM CDT) Only the most recent of6 resultswithin the time period is included. WBC 3.42(L) 4.00 - 10.80 x10'3/uL 05/20/2024 3:31 AM CDT [facility] RBC 3.02(L) 4.50 - 6.10 x10'6/uL 05/20/2024 3:31 AM CDT [facility] HGB 8.1(L) 13.0 - 18.0 G/DL 05/20/2024 3:31 AM CDT [facility] HCT 24.7(L) 37.0 - 52.0 % 05/20/2024 3:31 AM CDT [facility] MCV 81.8 78.0 - 100.0 FL 05/20/2024 3:31 AM CDT [facility] MCH 26.8(L) 27.0 - 31.0 PG 05/20/2024 3:31 AM CDT [facility] MCHC 32.8(L) 33.0 - 36.0 G/DL 05/20/2024 3:31 AM CDT [facility] RDW 15.9(H) 11.5 - 14.5 % 05/20/2024 3:31 AM CDT [facility] PLT 168 150 - 350 x10'3/uL 05/20/2024 3:31 AM CDT [facility] MPV 9.2 7.4 - 10.4 FL 05/20/2024 3:31 AM CDT [facility] CBC COMMENT NORMAL REFERENCE RANGE NOT ESTABLISHED FOR THE PROPORTIONAL LEUKOCYTE DIFFERENTIAL. 05/20/2024 3:31 AM CDT [facility] [facility] NEUTROPHILS % 66.1 % 05/20/2024 3:31 AM CDT [facility] LYMPHOCYTES % 24.3 % 05/20/2024 3:31 AM CDT [facility] MONOCYTES % 7.3 % 05/20/2024 3:31 AM CDT [facility] EOSINOPHILS % 2.0 % 05/20/2024 3:31 AM CDT [facility] BASOPHILS % 0.3 % 05/20/2024 3:31 AM CDT [facility] IMMATURE GRANS % 0.0 % 05/21/19 3:31 AM CDT [facility] NRBC % 0.0 % 05/20/2024 3:31 AM CDT [facility] ABS. NEUTROPHILS 2.26 1.60 - 8.30 x10'3/uL 05/20/2024 3:31 AM CDT [facility] ABS. LYMPHOCYTES 0.83 0.80 - 4.70 x10'3/uL 05/20/2024 3:31 AM CDT [facility] ABS. MONOCYTES 0.25 0.00 - 1.50 x10'3/uL 05/20/2024 3:31 AM CDT [facility] ABS. EOSINOPHILS 0.07 0.00 - 0.40 x10'3/uL 05/20/2024 3:31 AM CDT [facility] ABS. BASOPHILS 0.01 0.00 - 0.20 x10'3/uL 05/20/2024 3:31 AM CDT [facility] ABS. IMMATURE GRANULOCYTES 0.00 0.00 - 0.03 x10'3/uL 05/20/2024 3:31 AM CDT [facility] ABS. NUCLEATED RBC'S 0.00 0.00 - 0.01 x10'3/uL 05/20/2024 3:31 AM CDT [facility] 05/20/2024 3:21 AM CDT Lesly Clifton DO LABORATORY Final Result [facility] [address] [place] [address], * TROPONIN, QUANT (05/20/2024 3:21 AM CDT) Only the most recent of5 resultswithin the time period is included. TROPONIN I HIGH SENSITIVITY 35 0 - 76 ng/L 05/20/2024 3:49 AM CDT [facility] 05/20/2024 3:21 AM CDT Lesly Clifton DO LABORATORY Final Result [facility] [place] [address], * XR CHEST PORTABLE (05/20/2024 3:07 AM CDT) Only the most recent of2 resultswithin the time period is included. Anatomical Region Laterality Modality Chest Radiographic Adia ging 05/20/2024 3:10 AM CDT Impressions 05/20/2024 3:13 AM CDT IMPRESSION: 1. Cardiomegaly with mild central vascular congestion and mild interstitial pulmonary edema centrally in bilateral lungs. Please correlate for CHF or fluid overload. 2. Old healed fracture of the right and questionably the left clavicle. Slight superior subluxation of the left humeral head and mild arthritic changes in bilateral shoulders. Referred By: Interpreted By: Kaye Fernandez MD, 05/20/2024 3:10 AM Narrative 05/20/2024 3:13 AM CDT [address] [place] [address] EXAMINATION: XR Portable CXR, 1 View INDICATION: Chest pain. Shortness of breath starting at 0200 hours. COMPARISON: PA and lateral chest x-ray 05/02/2024. FINDINGS: Cardiomegaly. threat monitoring analyst leads overlie the chest and upper abdomen. Development of mild central vascular congestion since the prior exam. Development of mild interstitial pulmonary edema centrally in bilateral perihilar and infrahilar regions. No peripheral consolidation, pleural effusion, or pneumothorax. Old healed fracture of the right and questionably the left clavicle. 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 Partially included posterior fusion hardware in the lower thoracic/upper lumbar region. No acute osseous abnormality. Procedure Note Kaye Fernandez MD - 05/20/2024 [facility] [address] [place] [address] EXAMINATION: XR Portable CXR, 1 View INDICATION: Chest pain. Shortness of breath starting at 0200 hours. COMPARISON: PA and lateral chest x-ray 05/02/2024. FINDINGS: Cardiomegaly. threat monitoring analyst leads overlie the chest and upper abdomen.Development of mild central vascular congestion since the prior exam.Development of mild interstitial pulmonary edema centrally in bilateralperihilar and infrahilar regions. No peripheral consolidation, pleuraleffusion, or pneumothorax. Old healed fracture of the right andquestionably the left clavicle. Chronic superior subluxation of lefthumeral head with arthritic changes in bilateral shoulders. Partiallyincluded posterior fusion hardware in the lower thoracic/upper lumbarregion. No acute osseous abnormality. IMPRESSION: 1. Cardiomegaly with mild central vascular congestion and mildinterstitial pulmonary edema centrally in bilateral lungs. Pleasecorrelate for CHF or fluid overload. 2. Old healed fracture of the right and questionably the left clavicle.Slight superior subluxation of the left humeral head and mild arthriticchanges in bilateral shoulders. Referred By: Interpreted By: Kaye Fernandez MD, 05/20/2024 3:10 AM us Lesyl Clifton DO GENERAL IMAGING Final Result * ECG 12 lead (05/20/2024 2:54 AM CDT) Only the most recent of6 resultswithin the time period is included. 05/20/2024 2:54 AM CDT Narrative [facility] - 05/20/2024 5:25 AM CDT [address] 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1980 Requested By: LESLY CLIFTON Order Number: [id number] Reading MD: Merline Fair Measurements Intervals [place] Rate: 72 P: 52 OK: 193 QRS: 90 QRSD: 111 T: 52 QT: 414 QTc: 456 Interpretive Statements SINUS RHYTHM WITH OCCASIONAL SUPRAVENTRICULAR PREMATURE COMPLEXES MODERATE INTRAVENTRICULAR CONDUCTION DELAY MODERATE ST DEPRESSION Lesly Clifton DO ECG ORDERABLES Final Result Performing Organization Address City/State/[facility] Co de Phone Number [facility] * XR PELVIS 1 OR 2 VIEWS (05/10/2024 8:29 PM CARTON MACHINE OPERATOR) Anatomical Region Laterality Modality Pelvis Radiographic Adia ging 05/10/2024 8:40 PM CARTON MACHINE OPERATOR Impressions 05/10/2024 8:44 PM CARTON MACHINE OPERATOR IMPRESSION: No acute abnormality identified. Referred By: Interpreted By: Michael Mattson MD, 05/10/2024 8:40 PM Narrative 05/10/2024 8:44 PM CARTON MACHINE OPERATOR [address] [place] [address] EXAMINATION: XR HIP RT 2V, XR PELVIS 1 OR 2 VIEWS HISTORY: Pain after fall DATE: 05/10/2024 8:13 PM COMPARISON: CT 03/12/2024 TECHNIQUE: AP pelvis. AP and lateral views of the right hip. 3 images. FINDINGS: No acute fracture identified. No dislocation. Joint spaces are unremarkable. Arterial calcifications are noted. If clinical concern for acute fracture remains high could consider CT. Procedure Note Michael Mattson MD - 05/10/[address] [place] [address] EXAMINATION: XR HIP RT 2V, XR PELVIS 1 OR 2 VIEWS HISTORY: Pain after fall DATE: 05/10/2024 8:13 PM COMPARISON: CT 03/12/2024 TECHNIQUE: AP pelvis. AP and lateral views of the right hip. 3 images. FINDINGS: No acute fracture identified. No dislocation. Joint spaces areunremarkable. Arterial calcifications are noted. If clinical concern for acute fracture remains high could consider CT. IMPRESSION: No acute abnormality identified. Referred By: Interpreted By: Michael Mattson MD, 05/10/2024 8:40 PM Yunior Hernández DO GENERAL IMAGING Final Result * XR HIP RT 2V (05/10/2024 8:29 PM CARTON MACHINE OPERATOR) Anatomical Region Laterality Modality Hip Radiographic Adia ging 05/10/2024 8:40 PM CARTON MACHINE OPERATOR Impressions 05/10/2024 8:44 PM CARTON MACHINE OPERATOR IMPRESSION: No acute abnormality identified. Referred By: Interpreted By: Michael Mattson MD, 05/10/2024 8:40 PM Narrative 05/10/2024 8:44 PM CARTON MACHINE OPERATOR [address] [place] [address] EXAMINATION: XR HIP RT 2V, XR PELVIS 1 OR 2 VIEWS HISTORY: Pain after fall DATE: 05/10/2024 8:13 PM COMPARISON: CT 03/12/2024 TECHNIQUE: AP pelvis. AP and lateral views of the right hip. 3 images. FINDINGS: No acute fracture identified. No dislocation. Joint spaces are unremarkable. Arterial calcifications are noted. If clinical concern for acute fracture remains high could consider CT. Procedure Note Michael Mattson MD - 05/10/[address] [place] [address] EXAMINATION: XR HIP RT 2V, XR PELVIS 1 OR 2 VIEWS HISTORY: Pain after fall DATE: 05/10/2024 8:13 PM COMPARISON: CT 03/12/2024 TECHNIQUE: AP pelvis. AP and lateral views of the right hip. 3 images. FINDINGS: No acute fracture identified. No dislocation. Joint spaces areunremarkable. Arterial calcifications are noted. If clinical concern for acute fracture remains high could consider CT. IMPRESSION: No acute abnormality identified. Referred By: Interpreted By: Michael Mattson MD, 05/10/2024 8:40 PM Yunior Hernández DO GENERAL IMAGING Final Result * XR CHEST PA+LAT (05/02/2024 4:16 PM CARTON MACHINE OPERATOR) Only the most recent of3 resultswithin the time period is included. Anatomical Region Laterality Modality Chest Radiographic Adia ging 05/02/2024 4:31 PM CARTON MACHINE OPERATOR Impressions 05/02/2024 4:32 PM CARTON MACHINE OPERATOR IMPRESSION: Mild cardiomegaly without congestive changes. Ordered By: MILAGRO JEROME Interpreted By: Royer Michaud MD, 05/02/2024 4:31 PM Narrative 05/02/2024 4:32 PM CARTON MACHINE OPERATOR [address] [place] [address] Examination: XR CHEST PA+LAT Exam time: 05/02/2024 2:40 PM Clinical history: Chest pain. Comparison: Radiographs March 12, 2024. Technique: PA and lateral views. Findings: The heart is mildly prominent in size. No vascular congestion or pleural effusion. No airspace consolidation or pneumothorax. Surgical changes of the thoracolumbar region. Procedure Note Royer Michaud MD - 05/02/[address] [place] [address] Examination: XR CHEST PA+LAT Exam time: 05/02/2024 2:40 PM Clinical history: Chest pain. Comparison: Radiographs March 12, 2024. Technique: PA and lateral views. Findings: The heart is mildly prominent in size. No vascular congestion or pleuraleffusion. No airspace consolidation or pneumothorax. Surgical changes ofthe thoracolumbar region. IMPRESSION: Mild cardiomegaly without congestive changes. Ordered By: MILAGRO JEROME Interpreted By: Royer Michaud MD, 05/02/2024 4:31 PM us Milagro Jerome DO GENERAL IMAGING Final Result * LACTIC ACID W REFLEX (SEPSIS) (05/02/2024 3:46 PM CARTON MACHINE OPERATOR) Only the most recent of3 resultswithin the time period is included. LACTIC ACID VENOUS 1.7 0.4 - 2.0 MMOL/L 05/02/2024 4:36 PM CARTON MACHINE OPERATOR [facility] 05/02/2024 3:46 PM CARTON MACHINE OPERATOR us Milagro Jerome DO LABORATORY Final Result [facility] [address] [place] [address], * IV PLACEMENT (05/02/2024 3:44 PM CARTON MACHINE OPERATOR) Only the most recent of2 resultswithin the time period is included. Narrative Mimi aLng CRNA - 05/02/2024 3:44 PM CARTON MACHINE OPERATOR Mimi Lang CRNA 05/02/2024 3:45 PM Peripheral IV Date/Time: 05/02/2024 3:44 PM Performed by: Mimi Lang CRNA Authorized by: Mimi Lang CRNA Patient Location: Floor Placed Outside of This Facility?: No Size (Guage): 20 G Orientation: Right Location: Basilic Insertion Attempts: 1 Ultrasound-guided Placement: Yes Ultrasound was used to identify the vessel. It was assessed and patent. Ultrasound was used to visualized vascular needle entry into the vessel and The selected vessel appeared anatomically normal and there were no apparent abnormal findings Patient Tolerance: Tolerated well us Mimi Lang CRNA [place] ANESTHESIA Final Result * CT ABD+PEL WO CON (03/12/2024 1:49 PM CARTON MACHINE OPERATOR) Anatomical Region Laterality Modality Abdomen Computed Tomogra phy 03/12/2024 1:49 PM CARTON MACHINE OPERATOR Impressions 03/12/2024 1:59 PM CARTON MACHINE OPERATOR IMPRESSION: 1. No acute intra-abdominal or intrapelvic process identified. 2. Additional chronic/nonurgent findings as described. Ordered By: TARAS SEAMAN Interpreted By: Willem Leal MD, 03/12/2024 1:49 PM Narrative 03/12/2024 1:59 PM CARTON MACHINE OPERATOR [address] [place] [address] Examination: CT of the abdomen and pelvis without contrast. Exam time: 1348 hours. Clinical history: Weakness. Nausea. Normal WBC count. Mildly elevated serum lipase. History of diabetes and hypertension with renal failure, on dialysis. Previous spinal fusion. Comparison: 01/30/2024. Technique: Spiral scanning was performed through the abdomen and pelvis without contrast. Sagittal and coronal reconstructions were performed from the data set. A dose lowering technique was used for this procedure, which may include, but is not limited to, dose reduction techniques, automated exposure control, the use of iterative reconstruction and ALARA/Image Gently techniques. Findings: Allowing for minor respiratory motion, the lung bases are clear. No pleural effusions are seen. There is stable moderate four-chamber cardiac enlargement. Calcific coronary artery disease again evident. Bilateral renal atrophy and extensive atherosclerotic calcification again evident. The liver, spleen, gallbladder, pancreas, adrenals and kidneys are otherwise unremarkable for the noncontrast technique. The urinary bladder appears unremarkable. A normal-appearing appendix is visible. There is a moderate amount of stool in the colon. Colonic diverticulosis is again evident without signs of diverticulitis. There is no ascites, lymphadenopathy or bowel distention. The caliber of the abdominal aorta is normal. Changes consistent with renal osteodystrophy again evident. Interbody fusion at T11-T12 with posterior massimo and pedicle screw fusion from T10 through L1 again evident. The hardware appears intact. Procedure Note Willem Leal MD - 03/12/2024 [facility] [address] [place] [address] Examination: CT of the abdomen and pelvis without contrast. Exam time: 1348 hours. Clinical history: Weakness. Nausea. Normal WBC count. Mildly elevatedserum lipase. History of diabetes and hypertension with renal failure, ondialysis. Previous spinal fusion. Comparison: 01/30/2024. Technique: Spiral scanning was performed through the abdomen and pelviswithout contrast. Sagittal and coronal reconstructions were performed fromthe data set. A dose lowering technique was used for this procedure,which may include, but is not limited to, dose reduction techniques,automated exposure control, the use of iterative reconstruction andALARA/Image Gently techniques. Findings: Allowing for minor respiratory motion, the lung bases are clear.No pleural effusions are seen. There is stable moderate four-chambercardiac enlargement. Calcific coronary artery disease again evident.Bilateral renal atrophy and extensive atherosclerotic calcification againevident. The liver, spleen, gallbladder, pancreas, adrenals and kidneysare otherwise unremarkable for the noncontrast technique. The urinarybladder appears unremarkable. A normal-appearing appendix is visible.There is a moderate amount of stool in the colon. Colonic diverticulosisis again evident without signs of diverticulitis. There is no ascites,lymphadenopathy or bowel distention. The caliber of the abdominal aorta isnormal. Changes consistent with renal osteodystrophy again evident.Interbody fusion at T11-T12 with posterior massimo and pedicle screw fusionfrom T10 through L1 again evident. The hardware appears intact. IMPRESSION: 1. No acute intra-abdominal or intrapelvic process identified. 2. Additional chronic/nonurgent findings as described. Ordered By: TARAS SEAMAN Interpreted By: Willem Leal MD, 03/12/2024 1:49 PM us Taras Seaman DO CT Final Re sult * (ABNORMAL) BASIC METABOLIC PANEL (03/12/2024 12:37 PM CARTON MACHINE OPERATOR) SODIUM S/P/B 131(L) 136 - 145 MMOL/L 03/12/2024 1:16 PM CARTON MACHINE OPERATOR [facility] POTASSIUM S/P/B 7.6(HH) 3.5 - 5.1 MMOL/L 03/12/2024 1:16 PM [facility] Comment: Critical Result(s) Called to and read back by: DR SEAMAN at: 13:14:56 03/12/2024 by ETCR. CHLORIDE S/P/B 92(L) 98 - 107 MMOL/L 03/12/2024 1:16 PM [facility] CO2 26.7 21.0 - 32.0 MMOL/L 03/12/2024 1:16 PM [facility] GLUCOSE 352(H) 70 - 99 MG/DL 03/12/2024 1:16 PM [facility] Comment: FASTING GLUCOSE 100 TO 125 MG/DL IS CONSISTENT WITH IMPAIRED FASTING GLUCOSE. FASTING GLUCOSE >125 MG/DL IS CONSISTENT WITH DIABETES. RANDOM GLUCOSE >200 MG/DL WITH HYPERGLYCEMIC SYMPTOMS IS CONSISTENT WITH DIABETES. PER ADA GUIDELINES BUN 67(H) 6 - 24 MG/DL 03/12/2024 1:16 PM CARTON MACHINE OPERATOR [facility] CREATININE S/P/B 9.13(H) 0.70 - 1.30 MG/DL 03/12/2024 1:16 PM CARTON MACHINE OPERATOR [facility] CALCIUM S/P/B 6.9(L) 8.4 - 10.5 MG/DL 03/12/2024 1:16 PM [facility] ANION GAP 12.3 5.0 - 15.0 MMOL/L 03/12/2024 1:16 PM CARTON MACHINE OPERATOR [facility] OSMOLALITY (CALC) 305 MOSM/KG 025 1:16 PM CARTON MACHINE OPERATOR [facility] Comment:REFERENCE RANGE NOT ESTABLISHED GFR ESTIMATE 7(L) >89 ML/MIN/1. 73 M2 03/12/2024 1:16 PM CARTON MACHINE OPERATOR [facility] GFR NOTES GFR REFERENCE S: 03/12/2024 1:16 PM CARTON MACHINE OPERATOR [facility] Comment: THE ESTIMATED GFR IS CALCULATED USING THE 2020 CKD-EPI EQUATION. THE FOLLOWING CATEGORIES FOR GRADING RENAL FUNCTION ARE RECOMMENDED BY THE INTERNATIONAL SOCIETY OF NEPHROLOGY (KDIGO 2012 CLINICAL PRACTICE GUIDELINE). G1,NORMAL OR HIGH: >89 ml/min/1.73 m2 G2,MILDLY DECREASED: 60-89 ml/min/1.73 m2 G3A,MILDLY TO MODERATELY DECREASED: 45-59 ml/min/1.73 m2 G3B,MODERATELY TO SEVERELY DECREASED: 30-44 ml/min/1.73 m2 G4,SEVERELY DECREASED: 15-29 ml/min/1.73 m2 G5,KIDNEY FAILURE: <15 ml/min/1.73 m2 03/12/2024 12:3 7 PM CARTON MACHINE OPERATOR us Taras Seaman DO LABORATORY Final Re sult [facility] [address] [place] [address], * (ABNORMAL) HEPATIC FUNCTION PANEL (03/12/2024 12:37 PM CARTON MACHINE OPERATOR) BILIRUBIN TOTAL S/P/B 0.5 0.2 - 1.0 MG/DL 03/12/2024 1:16 PM CARTON MACHINE OPERATOR [facility] Comment: THIS ASSAY IS NOT RECOMMENDED FOR PATIENTS UNDERGOING TREATMENT WITH ELTROMBOPAG DUE TO THE POTENTIAL FOR FALSELY ELEVATED RESULTS. BILIRUBIN DIRECT S/P/B 0.1 0.0 - 0.2 MG/DL 03/12/2024 1:16 PM CARTON MACHINE OPERATOR [facility] ALKALINE PHOSPHATASE S/P/B 624(H) 45 - 115 U/L 03/12/2024 1:16 PM CARTON MACHINE OPERATOR [facility] AST 12(L) 15 - 37 U/L 03/12/2024 1:16 PM CARTON MACHINE OPERATOR [facility] ALT 24 16 - 63 U/L 03/12/2024 1:16 PM CARTON MACHINE OPERATOR [facility] TOTAL PROTEIN S/P/B 7.2 6.4 - 8.2 G/DL 03/12/2024 1:16 PM CARTON MACHINE OPERATOR [facility] ALBUMIN S/P/B 3.5 3.4 - 5.0 G/DL 03/12/2024 1:16 PM CARTON MACHINE OPERATOR [facility] 03/12/2024 12:3 7 PM CARTON MACHINE OPERATOR Taras Doug Urszula DO LABORATORY Final Re sult Performing Organization Address [facility]/ZIP Co de Phone Number [place] [id number] [place] [address], * MAGNESIUM (03/12/2024 12:37 PM CARTON MACHINE OPERATOR) MAGNESIUM 2.0 1.8 - 2.4 MG/DL 03/12/2024 1:16 PM CARTON MACHINE OPERATOR [facility] 03/12/2024 12:3 7 PM CARTON MACHINE OPERATOR [facility] LABORATORY Final Re sult Performing Organization Address [facility]/ZIP Co de Phone Number [facility] [address] [place] [address], * (ABNORMAL) LIPASE (03/12/2024 12:37 PM CARTON MACHINE OPERATOR) Only the most recent of2 resultswithin the time period is included. LIPASE 113(H) 16 - 77 UNITS/L 03/12/2024 1:16 PM CARTON MACHINE OPERATOR [facility] 03/12/2024 12:3 7 PM CARTON MACHINE OPERATOR Taras Doug Urszula DO LABORATORY Final Re sult [facility] [address] [facility] [place] [address], * XR FOOT RT 3V (03/11/2024 9:22 PM CARTON MACHINE OPERATOR) Anatomical Region Laterality Modality Foot Radiographic Adia ging 03/11/2024 9:27 PM CARTON MACHINE OPERATOR Impressions 03/11/2024 9:35 PM CARTON MACHINE OPERATOR IMPRESSION: 1. No acute osseous abnormality is identified. 2. Small calcaneal spur is present. Correlate for potential plantar fasciitis given the history of heel pain. 3. A 10 mm thin metallic density projects between the base of the second and third metatarsal bones. This likely represents a soft tissue foreign body. Ordered By: TEJAS FREITAS Interpreted By: Royer Michaud MD, 03/11/2024 9:27 PM Narrative 03/11/2024 9:35 PM CARTON MACHINE OPERATOR [address] [place] [address] Examination: XR FOOT RT 3V Exam time: 03/11/2024 9:22 PM Clinical history: Infection. Heel pain. Comparison: Radiographs 03/02/2021. Technique: 3 views of the right foot. Findings: Old fracture deformities of the second through fifth distal metatarsals. No acute appearing fracture is identified. No destructive bone process is seen. Calcaneal spur noted. Vascular calcifications are present. A 10 mm thin density projects within the soft tissues between the second and third proximal phalanx. Procedure Note Royer Michaud MD - 03/11/[address] [place] [address] Examination: XR FOOT RT 3V Exam time: 03/11/2024 9:22 PM Clinical history: Infection. Heel pain. Comparison: Radiographs 03/02/2021. Technique: 3 views of the right foot. Findings: Old fracture deformities of the second through fifth distal metatarsals.No acute appearing fracture is identified. No destructive bone process isseen. Calcaneal spur noted. Vascular calcifications are present. A 10 mmthin density projects within the soft tissues between the second and thirdproximal phalanx. IMPRESSION: 1. No acute osseous abnormality is identified. 2. Small calcaneal spur is present. Correlate for potential plantarfasciitis given the history of heel pain. 3. A 10 mm thin metallic density projects between the base of the secondand third metatarsal bones. This likely represents a soft tissue foreignbody. Ordered By: TEJAS FREITAS Interpreted By: Royer Michaud MD, 03/11/2024 9:27 PM Tejas Freitas MD GENERAL IMAGING Final Result * CULTURE, BACTERIA, BLOOD (03/11/2024 8:57 PM CARTON MACHINE OPERATOR) SPEC DESCRIPTION BLOOD 03/11/2024 8:42 PM CARTON MACHINE OPERATOR [facility] SPECIAL REQUESTS NO SPECIAL REQUEST 03/11/2024 8:42 PM CARTON MACHINE OPERATOR [facility] CULTURE RESULT NO GROWTH 5 DAYS 03/16/2024 12:11 PM CARTON MACHINE OPERATOR [facility] BLOOD SPECIMEN OBTAINED FOR BLOOD CULTURE / Unknown 03/11/2024 8:57 PM CARTON MACHINE OPERATOR 03/11/2024 9:03 PM CARTON MACHINE OPERATOR Tejas Freitas MD MICROBIOLOGY - GENERAL ORDERA BLES Final Result [facility] [place] [address], * INFLUENZA A & B (02/27/2024 10:20 AM CARTON MACHINE OPERATOR) Only the most recent of2 resultswithin the time period is included. SPECIMEN TYPE (INFLUENZA) NASAL 02/27/2024 10:17 AM CARTON MACHINE OPERATOR [facility] INFLUENZA A NEGATIVE NEGATIVE 02/27/2024 10:47 AM CARTON MACHINE OPERATOR [facility] INFLUENZA B NEGATIVE NEGATIVE 02/27/2024 10:47 AM CARTON MACHINE OPERATOR [facility] Comment: A NEGATIVE RESULT DOES NOT EXCLUDE INFLUENZA VIRUS INFECTION. IF INFLUENZA IS CIRCULATING IN YOUR COMMUNITY, A DIAGNOSIS OF INFLUENZA SHOULD BE CONSIDERED BASED ON A PATIENT'S CLINICAL PRESENTATION AND EMPIRIC ANTIVIRAL TREATMENT SHOULD BE CONSIDERED IF INDICATED. NASAL STRUCTURE / Unknown 02/27/2024 10:20 AM CARTON MACHINE OPERATOR Lesly Clifton DO MICROBIOLOGY - GENERAL ORDERAB LES Final Result [facility] [address] [place] [place] [address], * Critical Care (02/27/2024 9:45 AM CARTON MACHINE OPERATOR) Lesly Reyes DO - 02/27/2024 9:45 AM CARTON MACHINE OPERATOR Lesly Clifton DO 02/27/2024 12:17 PM Critical Care Performed by: Lesly Clifton DO Authorized by: Lesly Clifton DO Critical care provider statement: Critical care time (minutes): 35 Critical care start time: 02/27/2024 11:00 AM Critical care end time: 02/27/2024 11:35 AM Critical care was necessary to treat or prevent imminent or life-threatening deterioration of the following conditions: Metabolic crisis and renal failure Critical care was time spent personally by me on the following activities: Blood draw for specimens, development of treatment plan with patient or surrogate, discussions with consultants, evaluation of patient's response to treatment, examination of patient, ordering and performing treatments and interventions, interpretation of cardiac output measurements, ordering and review of laboratory studies, ordering and review of radiographic studies, pulse oximetry, re-evaluation of patient's condition and review of old charts I assumed direction of critical care for this patient from another provider in my specialty: no Care discussed with: admitting provider Lesly Clifton DO PROCEDURE/MINOR SURGICAL ORDER [place] Final Result * (ABNORMAL) POTASSIUM, SERUM (02/26/2024 5:44 PM CARTON MACHINE OPERATOR) POTASSIUM S/P/B 6.7(HH) 3.5 - 5.1 MMOL/L 02/26/2024 6:00 PM CARTON MACHINE OPERATOR [facility] Comment: CRITICAL VALUE CRITICAL VALUE VERIFIED, CALLED TO, AND READ BACK BY: JEROME MANNING 1800 KLS 02/26/2024 5:44 PM CARTON MACHINE OPERATOR us Destini Reis MD LABORATORY Final Result Performing Organization Address [facility]/ZIP Co de Phone Number [facility] [address] [place] [phone], * CORONAVIRUS (COVID-19) ANTIGEN (02/26/2024 4:40 PM CARTON MACHINE OPERATOR) CORONAVIRUS ANTIGEN IA NEGATIVE NEGATIVE 02/26/2024 5:20 PM CARTON MACHINE OPERATOR [facility] Comment: NEGATIVE RESULTS DO NOT RULE OUT SARS-COV-2 INFECTION AND SHOULD NOT BE USED THE SOLE BASIS FOR TREATMENT OR PATIENT MANAGEMENT DECISIONS, INCLUDING INFECTION CONTROL DECISIONS. NEGATIVE RESULTS SHOULD BE CONSIDERED IN THE CONTEXT OF A PATIENT'S RECENT EXPOSURES, HISTORY AND THE PRESENCE OF CLINICAL SIGNS AND SYMPTOMS CONSISTENT WITH COVID 19. THIS TEST HAS BEEN AUTHORIZED BY THE FDA UNDER AN EMERGENCY USE AUTHORIZATION (EUA) FOR USE BY AUTHORIZED LABORATORIES. SPECIMEN TYPE NASAL 02/26/2024 4:38 PM CARTON MACHINE OPERATOR [facility] NASAL NASAL STRUCTURE / Unknown 02/26/2024 4:40 PM CARTON MACHINE OPERATOR us Destini Reis MD MICROBIOLOGY - GENERAL ORDERABLE S Final Result Performing Organization Address [facility] Co de Phone Number [facility] [address] [place] [phone], * RESP SYNCYTIAL VIRUS (02/26/2024 4:40 PM CARTON MACHINE OPERATOR) SPECIMEN TYPE NASOPHARYNGEAL SWAB 02/26/2024 4:38 PM CARTON MACHINE OPERATOR [facility] RSV NEGATIVE NEGATIVE 02/26/2024 5:21 PM CARTON MACHINE OPERATOR [facility] NASOPHARYNGEAL SWAB / Unknown 02/26/2024 4:40 PM CARTON MACHINE OPERATOR us Destini Reis MD MICROBIOLOGY - GENERAL ORDERABLE S Final Result Performing Organization Address City/[facility]/ZIP Co de Phone Number [facility] [address] [place] [phone], * (ABNORMAL) LIPID PANEL (08/21/2023 7:47 AM CDT) CHOLESTEROL 94 MG/DL 08/21/2023 9:06 AM CDT [facility] Comment:DESIRABLE: <200 TRIGLYCERIDES 112 MG/DL 08/21/2023 9:06 AM CDT [facility] Comment:<150 NORMAL HDL 38(L) >39 MG/DL 08/21/2023 9:06 AM CDT [facility] LDL (CALCULATED) 34 MG/DL 08/21/19 9:06 AM CDT [facility] Comment:<100 OPTIMAL VLDL CALCULATION 22 MG/DL 08/21/19 9:06 AM CDT [facility] Comment:REFERENCE RANGE NOT ESTABLISHED CHOL/HDL RATIO 2.5 08/21/2023 9:06 AM CDT [facility] Comment:REFERENCE RANGE NOT ESTABLISHED LDL/HDL 0.9 08/21/2023 9:06 AM CDT [facility] Comment:REFERENCE RANGE NOT ESTABLISHED NON HDL CHOLESTEROL 56 MG/DL 08/21/2023 9:06 AM CDT [facility] Comment:REFERENCE RANGE NOT ESTABLISHED 08/21/2023 7:47 AM CDT Gerda Walton MD LABORATORY Final Result [facility] [address] [place] [address], [id number] from Last 3 Months or Most Recently Relevant to Health Maintenance Insurance MEDICAID [facility] MEDICAID Advance Directives Documents on File Type Date Recorded Patient Production Grip Expl anation Guardianship - Permanent 05/30/2017 12:00 AM PHYSICIAN CERTIFICATION STATEMENT * Full Code (Latest Code Status on File) Date Activated Date Inactivated Comments 09/03/2023 4:16 PM 09/06/2023 2:56 PM * Full Code Date Activated Date Inactivated Comments 08/20/2023 10:18 PM 08/22/2023 5:07 PM * Full Code Date Activated Date Inactivated Comments 04/07/2023 8:06 PM 04/09/2023 3:38 PM * Full Code Date Activated Date Inactivated Comments 12/10/2022 5:30 AM 12/12/2022 4:04 PM * Full Code Date Activated Date Inactivated Comments 06/24/2022 9:04 PM 06/27/2022 4:06 PM Care Teams Propulsion Generator Repairer Relationship Specialty Start Date End Date Ankur Jorge FNP [address] [place] [address] PCP - General Nurse Practitioner Family 12/12/22 Simon Field MD [address] [place] [address] FAMILY PRACTICE 12/23/20 Kiko Snyder MD [address] [place] [address] Consulting Physician ORTHOPAEDIC SPINE SURGERY 10/03/17 Merline Fair MD [address] [place], [place] [id number] Consulting Physician CARDIOVASCULAR DISEASE 12/15/20 Christopher Stone MD [address] [place] [address] Consulting Physician INTERVENTIONAL CARDIOLOGY 06/25/22
--- OUTSIDE RECORDS SUMMARY | 2024-05-23 12:53 | XMS_ITS | Encounter Summary ---
Author Organization [facility] Address [address] [place] [address] Care Team Providers Care Behavioral Psychologist Name Role Phone Simon Field MD Unavailable + [phone] Kiko Snyder MD Unavailable [phone] Merline Fair MD Unavailable Christopher Stone MD Unavailable [phone] Ankur Jorge Primary Care Provider [phone] Encounter Details Date Type Department Care Team (Late st Contact Info) Description 09/07/2023 Hospital Follow-up Call [facility] [address] [place] [address] Sarina Rivers, RN Social History Tobacco Use Types Packs/Day Years Used Date Smoking Tobacco: Former Smokeless Tobacco: Never Alcohol Use Standard Drinks/Week Comments Not Currently 0 (1 standard drink = 0.6 oz pur e alcohol) 1-2/week [facility] Utilities Answer Date Recorded In the past [...] often do you attend chur ch or jewish services? 1 to 4 times per year [...] and heating? Not hard at all 09/04/2023 [facility] of Occupat ional Health - Occupational Stress [...] place to sleep or slept in a half-way (including now)? No 04/08/2023 Housing Stability Vital Sign Answer Luis e Recorded In the last 12 months, was t here a time when you were not able to pay the mortgage or rent on time? No 09/04/2023 In the past 12 months, how m any times have you moved where you were living? 1 09/04/2023 At any time in the past 12 m [facility], were you homeless or living in a half-way (including now)? 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 Answer Date of Assessment Author Status No 09/03/2023 3:00 PM CDT Rubina Poole RN Active * Do you have serious difficulty walking or climbing stairs? Answer Date of Assessment Author Status No 09/03/2023 3:00 PM CDT Rubina Poole RN Active * Do you have difficulty dressing or bathing? Answer Date of Assessment Author Status No 09/03/2023 3:00 PM CDT Rubina Poole RN Active * Because of a physical, mental, or emotional condition, do you have difficulty doing errands alone such as visiting a doctor's office or shopping? Answer Date of Assessment Author Status No 09/03/2023 3:00 PM CDT Rubina Poole RN Active documented as of this encounter Mental Status * Because of a physical, mental, or emotional condition, do you have serious difficulty concentrating, remembering, or making decisions? Answer Entry Date Author Status No 09/03/2023 3:00 PM CDT Rubina Poole RN Active documented in this encounter Plan of Treatment Upcoming Encounters Date Type Department Care Team (Late st Contact Info) Description 05/26/2024 1:15 PM CDT Appointment [facility] [address] [place], [place] [address] [address] Merline Fair MD [address] [place], [place] [phone] 05/26/2024 1:30 PM CDT [facility] [address] [place] [address] Merline Fair MD [address] [place], [place] [phone] documented as of this encounter Goals Goal Patient Goal Type Associated Problems Recent Progress Patient-Stated? Author Safety Patient/family will have appropriate support at home upon discharge General No Bev Millan RN Safety Patient/family will have appropriate support at home upon discharge Lifestyle No Lena, Christel E, RN documented as of this encounter Visit Diagnoses Not on filedocumented in this encounter Additional Health Concerns Infection Onset Date Last Indicated Resolved Time COVID-19 Rule Out 02/26/2024 02/26/2024 02/26/2024 5:21 PM MANAGER TRAINING AND DEVELOPMENT COVID-19 Rule Out 02/27/2024 02/27/2024 02/27/2024 4:21 PM MANAGER TRAINING AND DEVELOPMENT documented as of this encounter Care Teams Behavioral Psychologist Relationship Specialty Start Date End Date Ankur Jorge FNP [address] [place] [address] PCP - General Nurse Practitioner Family 12/12/22 Simon Field MD [address] [place] [address] FAMILY PRACTICE 12/23/20 Kiko Snyder MD [address] [place] [phone] Consulting Physician ORTHOPAEDIC SPINE SURGERY 10/03/17 Merline Fair MD [address] [place] [address] Consulting Physician CARDIOVASCULAR DISEASE 12/15/20 Christopher Stone MD [address] [place] [address] Consulting Physician INTERVENTIONAL CARDIOLOGY 06/25/22 documented as of this encounter
--- OUTSIDE RECORDS SUMMARY | 2024-05-23 12:54 | XMS_ITS | Encounter Summary ---
Author Organization [facility] Address [address] [place] [address] Care Team Providers Care Crm Marketing Manager Name Role Phone Simon Field MD Unavailable + [phone] Kiko Snyder MD Unavailable [phone] Merline Fair MD Unavailable Juhi Bassett [facility] Primary Care Provider [phone] Christopher Stone MD Unavailable [phone] [facility] Primary Care Provider [phone] Encounter Details Date Type Department Care Team (Late st Contact Info) Description 03/10/2021 Hospital Follow-up Call [facility] Care Unit [address] [place] [address] Sarina Rivers, RN Social History Tobacco Use Types Packs/Day Years Used Date Smoking Tobacco: Former Smokeless Tobacco: Never Alcohol Use Standard Drinks/Week Comments Not Currently 0 (1 standard drink = 0.6 oz pur e alcohol) maybe 5-6 drinks a year Sex and Gender Information Value Date Recorded Sex Assigned at Male 12/24/2020 9:15 AM CDT Legal Sex Male 4:42 PM CDT Gender Identity Male 12/24/2020 9:15 AM CDT Sexual Orientation Choose not to disclose 2020 9:15 AM CDT COVID-19 Exposure Response Date Recorded In the last month, have you been in contact with someone who was confirmed or suspected to have Coronavirus / COVID-19? No / Unsure 03/02/2021 6:45 PM SECURITIES ANALYST documented as of this encounter Functional Status * RETIRED Are you deaf or do you have serious difficulty hearing Answer Date of Assessment Author Status Yes 03/03/2021 4:00 AM SECURITIES ANALYST Activ e * RETIRED Are you blind or do you have serious difficulty seeing, even when wearing glasses? Answer Date of Assessment Author Status No 03/03/2021 4:00 AM SECURITIES ANALYST Activ e * Do you have serious difficulty walking or climbing stairs? Answer Date of Assessment Author Status No 03/03/2021 4:00 AM SECURITIES ANALYST Cyril Osman RN Active * Do you have difficulty dressing or bathing? Answer Date of Assessment Author Status No 03/03/2021 4:00 AM SECURITIES ANALYST Cyril Osman RN Active * Because of a physical, mental, or emotional condition, do you have difficulty doing errands alone such as visiting a doctor's office or shopping? Answer Date of Assessment Author Status No 03/03/2021 4:00 AM SECURITIES ANALYST Cyril Osman RN Active documented as of this encounter Mental Status * Because of a physical, mental, or emotional condition, do you have serious difficulty concentrating, remembering, or making decisions? Answer Entry Date Author Status No 03/03/2021 4:00 AM SECURITIES ANALYST Cyril Osman RN Active documented in this encounter Plan of Treatment Upcoming Encounters Date Type Department Care Team (Late st Contact Info) Description 05/26/2024 1:15 PM CDT Appointment [facility] [address] [place] [address] Merline Fair MD [address] [place], [place] [phone] 05/26/2024 1:30 PM CDT [facility] [address] [place] [address] Merline Fair MD [address] [place] [address] documented as of this encounter Goals Goal Patient Goal Type Associated Problems Recent Progress Patient-Stated? Author Safety Patient/family will have appropriate support at home upon discharge Bev Morrison RN documented as of this encounter Visit Diagnoses Not on filedocumented in this encounter Additional Health Concerns Infection Onset Date Last Indicated Resolved Time COVID-19 Rule Out 06/01/2021 06/02/2021 06/02/2021 2:57 PM CDT COVID-19 Rule Out 08/16/2021 08/16/2021 08/16/2021 6:20 AM CDT COVID-19 Confirmed 08/16/2021 08/16/2021 12:32 AM CDT COVID-19 Rule Out 03/26/2022 03/26/2022 03/26/2022 3:12 PM SECURITIES ANALYST COVID-19 Rule Out 02/26/2024 02/26/2024 02/26/2024 5:21 PM SECURITIES ANALYST COVID-19 Rule Out 02/27/2024 02/27/2024 02/27/2024 4:21 PM SECURITIES ANALYST documented as of this encounter Care Teams Crm Marketing Manager Relationship Specialty Start Date End Date Juhi Bassett FNP [address] [place] [address] PCP - General NURSE PRACTITIONER 03/03/21 12/11/22 Ankur Jorge FNP [address] [place] [phone] PCP - General Nurse Practitioner [facility] 12/12/22 Simon Field MD [address] [place] [address] FAMILY PRACTICE 12/23/20 Kiko Snyder MD [address] [place] [address] Consulting Physician ORTHOPAEDIC SPINE SURGERY 10/03/17 Merline Fair MD [address] [place] [address] Consulting Physician CARDIOVASCULAR DISEASE 12/15/20 Christopher Stone MD [address] [place] [address] Consulting Physician INTERVENTIONAL CARDIOLOGY 06/25/22 documented as of this encounter
--- OUTSIDE RECORDS SUMMARY | 2024-05-23 12:54 | XMS_ITS | Clinical Summary ---
Author Organization [facility] Address [address] [place] [address] Phone Care Team Providers Care Gas Regulator Repairer Name Role Phone Juhi Bassett APRN Primary Care Provider [phone] Allergies Active Allergy Reactions Criticality Noted Date Comments Levofloxacin Rash 08/16/2021 Lisinopril-Hydrochlorothiazide Swelling 08/16 Morphine Itching 08/16/2021 Amlodipine Besylate Swelling 08/16/2021 Medications calcium acetate, Phos Binder, (PHOSLO) 667 MG Capsule Take 2,001 mg by mouth 3 times daily (with meals). 05/27/2021 Active cloNIDine (CATAPRES) 0.3 MG Tablet Take 0.3 mg by mouth 2 times daily. 07/25/2021 Active furosemide (LASIX) 80 MG Tablet Take 80 mg by mouth. Take 80 mg three times daily on Mon, Wed, Fri, Sun... Take 80 mg twice daily on , , 07/25/2021 Active hydrALAZINE HCl 100 MG Tablet Take 100 mg by mouth 2 times daily. 07/25/2021 Active losartan (COZAAR) 100 MG Tablet Take 100 mg by mouth daily. 06/17/2021 Active metoprolol Succinate (TOPROL-XL) 100 MG TABLET SR 24 HR Take 200 mg by mouth in the morning and at bedtime. 07/25/2021 Active minoxidil (LONITEN) 2.5 MG Tablet Take 5 mg by mouth 2 times daily. 07/25/2021 Active Active Problems Problem Noted Date Diagnosed Date Hyperkalemia 08/16/2021 ESRD (end stage renal disease) 08/16/2021 Pneumonia due to COVID-19 virus 08/16/2021 Type 2 diabetes mellitus 08/16/2021 Social History Tobacco Use Types Packs/Day Years Used Date Smoking Tobacco: Former Cigarettes Smokeless Tobacco: Never Tobacco Cessation:Counseling Given: No Alcohol Use Standard Drinks/Week Comments Never 0 (1 standard drink = 0.6 oz pur e alcohol) PHQ-2 Answer Date Recorded Total Score - Questions 1-9 0 08/03 Sexually Active Control Partners Comments Not Currently Sex and Gender Information Value Date Recorded Sex Assigned at Not on file Legal Sex Male 12:17 PM CDT Gender Identity Not on file Sexual Orientation Not on file Last Filed Vital Signs Vital Sign Reading Time Taken Comments Blood Pressure 135/65 08/18/2021 1:16 PM CDT Pulse - - Temperature 36.6 C (97.8 F) 08/18/2021 1:16 PM CDT Respiratory Rate 18 08/18/2021 1:16 PM CDT Oxygen Saturation 98% 08/18/2021 12: 10 AM CDT Inhaled Oxygen Concentration - - Weight 97.4 kg (214 lb 11.7 oz) 08/17/2021 2:50 AM CDT Height 182.9 cm (6') 08/16/2021 3:31 PM CDT Body Mass Index 29.12 08/16/2021 3:31 PM CDT Plan of Treatment Not on file Insurance MEDICARE C [place] Advance Directives * Full Code (Latest Code Status on File) Date Activated Date Inactivated Comments 08/16/2021 7:43 PM 08/18/2021 9:07 PM CPR-Full Osmar atment: FULL ARREST: Attempt Resuscitation/CPR wit intubation and mechanical ventilation. PRE-ARREST: Use entire range of life support measures to stabilize the patient. Care Teams Gas Regulator Repairer Relationship Specialty Start Date End Date Juhi Bassett APRN [address] [place] [address] PCP - General Family Medicine 08/16/21
--- OUTSIDE RECORDS SUMMARY | 2024-05-23 12:54 | XMS_ITS | Clinical Summary ---
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 Name Role Phone YUE LOVETT MD Unavailable [phone] ARTURO AMOR DO Unavailable [phone] Reason for Visit and Chief Complaint The Chief Complaint is: Diagnostic and therapeutic Right SI injection 06/13/2023 ~90 % 50 ongoing Problems Includes: Problems addressed during this encounter and other active Problems Current Visit Onset Date Resolved Date Provider Conditio n Status Neurogenic Arthritis Unknown LIAM G NEEL DATABASE OPERATOR-FPA, IMPLEMENTATION PROJECT COORDINATOR-BC Active Last Documented On 3 10:20AM ; [facility] Type 2 Diabetes with Diabeti c Neuropathy Unknown LIAM G NEEL DATABASE OPERATOR-FPA, IMPLEMENTATION PROJECT COORDINATOR-BC Active Last Documented On 3 12:11PM ; [facility] End Stage Renal Disease Unknown ANTHONY SSA G NEEL DATABASE OPERATOR-FPA, IMPLEMENTATION PROJECT COORDINATOR-BC Active Last Documented On 3 10:41AM ; [facility] Note: on Dialysis Past Visits Onset Date Resolved Date Provider Condition Status Anxiety Disorder Nos Unknown LIAM G NEEL DATABASE OPERATOR-FPA, IMPLEMENTATION PROJECT COORDINATOR-BC Active Last Documented On 3 10:42AM ; [facility] Coronary Artery Disease Unknown LIAM G KU LP DATABASE OPERATOR-FPA, IMPLEMENTATION PROJECT COORDINATOR-BC Active Last Documented On 3 10:35AM ; [facility] Type 2 Diabetes with Diabeti c Retinopathy Unknown LIAM G NEEL DATABASE OPERATOR-FPA, IMPLEMENTATION PROJECT COORDINATOR-BC Active Last Documented On 3 10:41AM ; [facility] Essential Hypertension Unknown LIAM G KUL P DATABASE OPERATOR-FPA, IMPLEMENTATION PROJECT COORDINATOR-BC Active Last Documented On 3 10:41AM ; [facility] Plan of Treatment Education and Decision Aids were provided during visit for: Lifestyle education Last Documented On 4 1:11PM ; [facility] Pill Count: Hydrocodone Last Documented On 4 1:15PM ; [facility] Pill Count: Patient did not bring pain medication to appointment for pill count, per policy. Advised in order to continue to safely prescribe opioids, medication must be brought to each appointment Last Documented On 4 1:15PM ; [facility] Assessments Includes: Assessments from this encounter Findings - [N18.6 - End stage renal disease] End stage renal disease - Last Documented On 06/28/2023 9:47AM ; [facility] - [E11.40 - Type 2 diabetes mellitus with diabetic neuropathy, unspecified] Type 2 diabetes with diabetic neuropathy - Last Documented On 06/28/2023 9:47AM ; [facility] - [M46.1 - Sacroiliitis, not elsewhere classified] Sacroiliitis - Last Documented On 06/28/2023 9:47AM ; [facility] - [M25.561 - Pain in right knee] Arthralgia of the right knee/patella/tibia/fibula - Last Documented On 06/28/2023 9:47AM ; [facility] - [M25.562 - Pain in left knee] Arthralgia of the left knee/patella/tibia/fibula - Last Documented On 06/28/2023 9:47AM ; [facility] - [M54.50 - Low back pain, unspecified] Low back pain - Last Documented On 06/28/2023 9:47AM ; [facility] - [G98.0 - Neurogenic arthritis, not elsewhere classified] Neurogenic arthritis - Last Documented On 06/28/2023 9:47AM ; [facility] - [M79.672 - Pain in left foot] Pain in left foot - Last Documented On 06/28/2023 9:47AM ; [facility] Instructions Includes: Instructions from this encounter Education and Decision Aids were provided during visit for: Lifestyle education Last Documented On 4 1:11PM ; [facility] Pill Count: Hydrocodone Last Documented On 4 1:15PM ; [facility] Pill Count: Patient did not bring pain medication to appointment for pill count, per policy. Advised in order to continue to safely prescribe opioids, medication must be brought to each appointment Last Documented On 4 1:15PM ; [facility] Medical Equipment - Implanted Devices Includes: Current Devices No Medical Equipment Recorded Medications Includes: Medications discussed during this encounter and other current Medications Discontinued / Stopped on this date VALERY ROBINS on 04/27/2023 Polymyxin B-Trimethoprim 100 00-0.1 UNIT/ML-% Ophthalmic Solution Provider: VALERY ROBINS Diagnosis: Last Documented On 4 1:26PM By LIAM RASMUSSEN ; [facility] New / Renewed during this visit VALERY ROBINS on 06/27/2023 Diclofenac Sodium 1% External Gel Provider: VALERY HUNT 30 day supply: 100 gram, 2 refills Diagnosis: Pain in right knee apply to painful joint as ne eded three times daily Pharmacy: [facility] [address], [address] - Last Documented On 4 1:31PM By LIAM RASMUSSEN ; [facility] Current Medications (continue as prescribed) HYDROcodone-Acetaminophen 5- 325 MG Oral Tablet 08/24/2023 Provider: VALERY ROBINS Diagnosis: Low back pain, unspecified One tablet three to four jamarcus es a day as needed for severe pain [30 day script] Last Documented On 4 4:05PM By LIAM RASMUSSEN ; [facility] Pantoprazole Sodium 40 MG Oral Tablet Delayed Release 02/19/2023 Provider: Diagnosis: Last Documented On 3 10:37AM By LIAM RASMUSSEN ; [facility] hydrALAZINE HCl 50 MG Oral Tablet 02/11/2023 Provide r: Diagnosis: Last Documented On 3 10:38AM By LIAM SHAIKH [facility] ; [facility] Losartan Potassium 50 MG Oral Tablet 02/11/2023 Prov ider: Diagnosis: Last Documented On 3 10:37AM By LIAM SHAIKH [facility] ; [facility] Eliquis 5 MG Oral Tablet 02/02/2023 Provider: Diagnosis: Last Documented On 3 10:37AM By LIAM SHAIKH [facility] ; [facility] Furosemide 80 MG Oral Tablet 02/02/2023 Provider: Diagnosis: Last Documented On 3 10:37AM By LIAM NEEL [facility] ; [facility] Amiodarone HCl 200 MG Oral Tablet 01/23/2023 Provide r: Diagnosis: Last Documented On 3 10:37AM By LIAM NEEL [facility] ; [facility] Atorvastatin Calcium 80 MG Oral Tablet 01/19/2023 Pr ovider: Diagnosis: Last Documented On 3 10:37AM By LIAM SHAIKH [facility] ; [facility] Brilinta 90 MG Oral Tablet 01/06/2023 Provider: Diagnosis: Last Documented On 3 10:37AM By LIAM NEEL [facility] ; [facility] Isosorbide Mononitrate ER 30 MG Oral Tablet Extended Release 24 Hour 01/01/2023 Provider: Diagnosis: Last Documented On 3 10:37AM By LIAM SHAIKH [facility] ; [facility] Cinacalcet HCl 90 MG Oral Tablet 07/26/2022 Provider : Diagnosis: Via Dialysis 3 times a week. Last Documented On 3 12:38PM By LIAM SHAIKH [facility] ; [facility] Calcitonin (Champion) 200 UNIT/ML Injection Solution Provider: Diagnosis: VIA Dialysis Last Documented On 3 12:38PM By LIAM SHAIKH [facility] ; [facility] Nitroglycerin 0.4 MG Sublingual Tablet Sublingual 07/04 Provider: Diagnosis: As needed. Last Documented On 3 12:38PM By LIAM SHAIKH [facility] ; [facility] Sevelamer Carbonate 800 MG Oral Tablet 07/26/2022 Pr ovider: Diagnosis: as needed. Last Documented On 3 12:38PM By LIAM RASMUSSEN ; [facility] Heparin Na (Pork) Lock Flsh PF 100 UNIT/ML Intravenous Solution 07/26/2022 Provider: Diagnosis: 600 unit / hr Via Dialysis Last Documented On 3 12:38PM By LIAM RASMUSSEN ; [facility] Mircera 50 MCG/0.3ML Injection Solution Prefilled Syri nge 07/26/2022 Provider: Diagnosis: Every 2 weeks via dialysis Last Documented On 3 12:38PM By LAIM RASMUSSEN ; [facility] NovoLOG FlexPen 100 UNIT/ML Subcutaneous Solution Pen-injector 05/17/2022 Provider: ARTURO Sanabria Diagnosis: As directed. Last Documented On 3 12:38PM By LIAM RASMUSSEN ; [facility] Medications Administered Includes: Administered Medications from this encounter No Administered Medications Recorded Vital Signs Includes: Vital Signs from this encounter Vital Name 06/27/2023 01:18P Blood Pressure Sitting R 124/68 BP Cuff Size Regular Pulse Rate-Sitting (bpm) 68 Temp-Temporal 96.8 Height (in) 72 Weight (lb) 226 Body Mass Index 30.7 Body Surface Area 2.2 Pain Level 3 Oxygen Saturation (%) 100 Last Documented: On 06/27/2023 1:19PM ; [facility] Results Includes: Results discussed during this encounter No Results Recorded For Specified Dates History of Present Illness Includes: History of Present Illness from this encounter HPI PHQ-9 Score: 0 Date:05/16/2023PI Score: Date:Oswestry Score: 50% Date:05/16/2023SOAPP-R Score: 7 Date:05/16/2023ain Location: Lumbar, sacrococcygeal, and BLT kneeQuality: Sharp, stabbing, aches, sore, shootingRadiation: Down right leg. Severity: Timing: constant in [...] been consistent. PRIOR VISIT: Seeing a new night warehouse selector in [place] Dr Lovett and planning on surgery of the L foot for Charcot foot next May. He will be non weight bearing for a few months post surgery so he is waiting until his children graduate high school in order to help him. He is waiting for an Paulina brace right now and continues in a [...] he has since followed up with the night warehouse selector and has a cast on for severe [...] and was told to follow-up with his night warehouse selector. He does not yet have an appointment. [...] not sure]. He was evaluated at the [facility], cleared, stabilized, and transferred to [facility]. He states at [facility] they told him the hardware [...] days that he works. 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 Small joint effusion. 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] 07/26/2022 Last Documented On 4 1:11PM ; [facility] Alcohol 07/26/2022 Last Documented On 4 1:11PM ; [facility] Amount of alcohol per day: 2-3 a month 0 07/26/2022 Last Documented On 4 1:11PM ; [facility] Difficulty walking 07/26/2022 Last Documented On 4 1:11PM ; [facility] Drug use 07/26/2022 Last Documented On 4 1:11PM ; [facility] Type: Thc gummies 07/26/2022 Last Documented On 4 1:11PM ; [facility] Smoking Status Unknown Procedures and Surgical History Includes: Procedures from this encounter Procedures Code Diagnosis Performing Provider Service L ocation Service Date plan of care reviewed and agreed to Last Documented On 4 1:11PM ; [facility] plan of care reviewed and agreed to by t he patient Last Documented On 4 1:11PM ; [facility] use of tobacco assessment performed 1000F Last Documented On 4 1:11PM ; [facility] patient screened for future fall risk: documentation of any fall with injury in past year 1100F Last Documented On 4 1:11PM ; [facility] standardized depression screening: negative for symptoms 3351F Last Documented On 4 1:11PM ; [facility] review of medications documented 1160F Last Documented On 4 1:11PM ; [facility] screening for adult depression: impressi on and score 0 Last Documented On 4 1:11PM ; [facility] encouragement to exercise Last Documented On 4 1:11PM ; [facility] Reviewed & agreed to staff entries. Last Documented On 4 1:11PM ; [facility] Clinical summary provided to patient Last Documented On 4 1:11PM ; [facility] SOAPP-R: total score 7 Last Documented On 4 1:11PM ; [facility] Surgical History Last Updated No Pacemaker 07/26/2022 Last Documented On 4 1:11PM ; [facility] Medical History Includes: Medical History addressed during this encounter Description Last Updated No Pacemaker Cardiac Stent 02/19/2023 Last Documented On 4 1:11PM ; [facility] No Pain Pump Insulin Pump ~Hepatomegaly 11/27/2022 Last Documented On 4 1:11PM ; [facility] Please list all illnesses/co nditions you have been diagnosed with: Renal failure, CHF, ,HTN, IDDM, aortic aneurysm, arthritis, retinopathy, hearing loss, neuropathy, 10/03/2022 Last Documented On 4 1:11PM ; [facility] Please list all surgeries: L eft small toe amputation 2013 ~retina left and right 2014 &16 ~fistula 2017 x2 2020 x1 ~peritoneal port insertion and removal 2017& 2018 10/03/2022 Last Documented On 4 1:11PM ; [facility] 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 07/26/2022 Last Documented On 4 1:11PM ; [facility] Has had no fall in the last 12 months. 0 07/26/2022 Last Documented On 4 1:11PM ; [facility] Family History Includes: Family History addressed during this encounter Description Last Updated Family history of Arthritis 07/26/2022 Last Documented On 4 1:11PM ; [facility] Family history of ischemic heart disease 07/26/2022 Last Documented On 4 1:11PM ; [facility] Family history of stroke/paralysis 07/26 Last Documented On 4 1:11PM ; [facility] Maternal history of family history of is chemic heart disease 07/26/2022 Last Documented On 4 1:11PM ; [facility] Maternal history of family history of ki dney disease 07/26/2022 Last Documented On 4 1:11PM ; [facility] Maternal history of stroke/paralysis Last Documented On 4 1:11PM ; [facility] Paternal history of Arthritis 07/26/2022 Last Documented On 4 1:11PM ; [facility] Paternal history of family history of is chemic heart disease 07/26/2022 Last Documented On 4 1:11PM ; [facility] Review of Systems Includes: Review of Systems from this encounter Systemic: No systemic symptoms other then noted [...] A skin wound is slow to heal. Mental Status Includes: Mental Status from this encounter No Mental Status Recorded Functional Status Includes: Functional Status from this encounter No Functional Status Recorded Physical Exam Includes: Physical Exam from this encounter Allergies Includes: Active Allergies Substance Type Reaction Onset Date Resolved Date Statu s Morphine Sulfate Allergy 07/26/2022 Ac tive Last Documented On 4 1:15PM ; [facility] Levaquin Allergy 07/26/2022 Active Last Documented On 4 1:15PM ; [facility] Doxycycline Hyclate Allergy 06/27/2023 Active Last Documented On 4 1:15PM ; [facility] Coreg Allergy 07/26/2022 Active Last Documented On 4 1:15PM ; [facility] Carvedilol Allergy 06/27/2023 Active Last Documented On 4 1:17PM ; [facility] Encounters Encounter Provider Location Date Check-In Time Check-Out Time Diagnosis PAIN MANAGEMENT FOLLOW UP LIAM SHAIKH DATABASE OPERATOR-FPA, IMPLEMENTATION PROJECT COORDINATOR-BC [facility] 06/27/19 24 1:10PM 1:36PM Sacroiliitis, End Stage Renal Disease,Type 2 Diabetes with Diabetic Neuropathy,Ne urogenic Arthritis,Edu sopathy Low Back Pain,Limb Pain Left Foot,Arthralg ia - Knee / Patella / Tibia / Fibula Right,Arthral jennifer - Knee / Patella / Tibia / Fibula Left Insurance Includes: Active Insurance Policies Plan Name Member ID Group # Subscriber Relationship Effect jesus Dates 1 - [facility] [id number] NIURKA CROCKER III Self Clinical Notes Includes: Clinical Notes from this encounter * Progress note Date Encounter Last Documented by 06/27/2023 PAIN MANAGEMENT FOLLOW UP Last d ocumented on 06/28/2023; 9:47 AM, LIAM Hull NEEL DATABASE OPERATOR-FPA, IMPLEMENTATION PROJECT COORDINATOR-BC; [facility] Active Problems & [...] been consistent. PRIOR VISIT: Seeing a new night warehouse selector in [place] Dr Lovett and planning on surgery of the L foot for Charcot foot next May. He will be non weight bearing for a few months post surgery so he is waiting until his children graduate high school in order to help him. He is waiting for an Paulnia brace right now and continues in a [...] he has since followed up with the night warehouse selector and has a cast on for severe [...] and was told to follow-up with his night warehouse selector. He does not yet have an appointment. [...] not sure]. He was evaluated at the [facility], cleared, stabilized, and transferred to [facility]. He states at [facility] they told him the hardware [...] days that he works. 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 Habits: Amount of sleep. 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 Allergies - Carvedilol - Coreg - Doxycycline [...] on the left. Negative log roll bilaterally. Plevna's positive bilaterally. Tender bilateral SI joints. Gait: Non antalgic. Neuro: Awake. Alert. Oriented x3. DTR's intact in all extremities. DTR's equal in all extremities. Sensory deficit mid calf down. No motor deficit. Psych: No apparent distress. Mood normal. Affect normal. No pain behaviors. Skin: [place], warm, dry. Tests Educational Testing: Questionnaires PHQ-9: [...] been appropriate. This and review of the [facility] database shows no evidence of misuse, [...] and for adult impression and score 0; [63073] Established outpatient, medically appropriate H&P, high level [...] but may be subject to typographical or stores despatch hand errors. Verify all diagnoses, medications, dosages, and patient instructions with patient and/or the originator of this document. Care Team - YUE LOVETT MD - Business Continuity Manager - ARTURO AMOR DO - Primary Care [...]
--- OUTSIDE RECORDS SUMMARY | 2024-05-23 12:54 | XMS_ITS | Encounter Summary ---
Author Organization [facility] Address [address] [place] [address] Care Team Providers Care Mechanic Senior Name Role Phone Simon Field MD Unavailable + [phone] Kiko Snyder MD Unavailable [phone] Merline Fair MD Unavailable Juhi Bassett [facility] Primary Care Provider [phone] Christopher Stone MD Unavailable [phone] Ankur Jorge [facility] Primary Care Provider [phone] Encounter Details Date Type Department Care Team (Late st Contact Info) Description 06/06/2021 Hospital Follow-up Call [facility] [address] [place] [address] Sandy Carnes RN Social History Tobacco Use Types Packs/Day [...] suspected to have Coronavirus/COVID-19? No / Unsure 06/09/2021 12:02 AM CDT documented as of this encounter Functional Status * RETIRED Are you deaf or do you have serious difficulty hearing Answer Date of Assessment Author Status No 06/02/2021 9:33 PM CDT Activ e * RETIRED Are you blind or do you have serious difficulty seeing, even when wearing glasses? Answer Date of Assessment Author Status No 06/02/2021 9:33 PM CDT Activ e * Do you have serious difficulty walking or climbing stairs? Answer Date of Assessment Author Status No 06/02/2021 9:33 PM CDT Sukumar Carpenter R N Active * Do you have difficulty dressing or bathing? Answer Date of Assessment Author Status No 06/02/2021 9:33 PM CDT Sukumar Carpenter R N Active * Because of a physical, mental, or emotional condition, do you have difficulty doing errands alone such as visiting a doctor's office or shopping? Answer Date of Assessment Author Status No 06/02/2021 9:33 PM CDT Sukumar Carpenter R N Active documented as of this encounter Mental Status * Because of a physical, mental, or emotional condition, do you have serious difficulty concentrating, remembering, or making decisions? Answer Entry Date Author Status No 06/02/2021 9:33 PM CDT Sukumar Carpenter R N Active documented in this encounter Plan of Treatment Upcoming Encounters Date Type Department Care Team (Late st Contact Info) Description 05/26/2024 1:15 PM CDT Appointment [facility] [address] [place] [address] Merline Fair MD [address] [place], [place] [phone] 05/26/2024 1:30 PM CDT [facility] [address] [place] [address] Merline Fair MD [address] [place], [place] [id number] documented as of this encounter Goals Goal Patient Goal Type Associated Problems Recent Progress Patient-Stated? Author Safety Patient/family will have appropriate support at home upon discharge General No Bev Millan RN documented as of this encounter Visit Diagnoses Not on filedocumented in this encounter Additional Health Concerns Infection Onset Date Last Indicated Resolved Time COVID-19 Rule Out 08/16/2021 08/16/2021 08/16/2021 6:20 AM CDT COVID-19 Confirmed 08/16/2021 08/16/2021 12:32 AM CDT COVID-19 Rule Out 03/26/2022 03/26/2022 03/26/2022 3:12 PM TRANSFORMATION LEAD COVID-19 Rule Out 02/26/2024 02/26/2024 02/26/2024 5:21 PM TRANSFORMATION LEAD COVID-19 Rule Out 02/27/2024 02/27/2024 02/27/2024 4:21 PM TRANSFORMATION LEAD documented as of this encounter Care Teams Mechanic Senior Relationship Specialty Start Date End Date Juhi Bassett FNP [address] [place] [phone] PCP - General NURSE PRACTITIONER 03/03/21 12/11/22 Ankur Jorge FNP [address] [place] [phone] PCP - General Nurse Practitioner Family 12/12/22 Simon Field MD [address] [place] [address] FAMILY PRACTICE 12/23/20 Kiko Snyder MD [address] [place] [phone] Consulting Physician ORTHOPAEDIC SPINE SURGERY 10/03/17 Merline Fair MD [address] [place] [address] Consulting Physician CARDIOVASCULAR DISEASE 12/15/20 Christopher Stone MD [facility] [place] [address] Consulting Physician INTERVENTIONAL CARDIOLOGY 06/25/22 documented as of this encounter
--- OUTSIDE RECORDS SUMMARY | 2024-05-23 12:54 | XMS_ITS | Encounter Summary ---
Author Organization [facility] Address [address] [place] [address] Care Team Providers Care Fairing Worker Name Role Phone Rohan Johnson MD Primary Care Provider [phone] Fermin Whitt MD Primary Care Provider [phone] Sundar Chisholm DO Primary Care Provider [phone] Simon Field MD Primary Care Provider Simon Field MD Primary Care Provider Simon Field MD Unavailable + [phone] Rohan Johnson MD Unavailable [phone] Kiko Snyder MD Unavailable [phone] Kiko Snyder MD Unavailable + [phone] Merline Fair MD Unavailable Juhi Bassett [facility] Primary Care Provider [phone] Christopher Stone MD Unavailable [phone] Ankur Jorge [facility] Primary Care Provider [phone] Encounter Details Date Type Department Care Team (Late st Contact Info) Description 08/10/2018 Abstract [facility]FL CONVERSION [address] [place] [address] , Generic Conversion, Social History Tobacco Use Types Packs/Day Years Used Date Smoking Tobacco: Never Smokeless Tobacco: Never Alcohol Use Standard Drinks/Week Comments No 0 (1 standard drink = 0.6 oz pur e alcohol) Sex and Gender Information Value Date Recorded [...] Answer Date of Assessment Author Status Yes 01/08/2018 11:10 AM STATISTICAL PROGRAMMER ANALYST Acti ve * RETIRED Are you blind or do you have serious difficulty seeing, even when wearing glasses? Answer Date of Assessment Author Status Yes 01/08/2018 11:10 AM STATISTICAL PROGRAMMER ANALYST Acti ve * Do you have serious difficulty walking or climbing stairs? Answer Date of Assessment Author Status No 01/08/2018 11:10 AM Magali Wnyne RN Active * Do you have difficulty dressing or bathing? Answer Date of Assessment Author Status No 01/08/2018 11:10 AM Magali Wynne RN Active * Because of a physical, mental, or emotional condition, do you have difficulty doing errands alone such as visiting a doctor's office or shopping? Answer Date of Assessment Author Status No 01/08/2018 11:10 AM Magali Wynne RN Active documented as of this encounter Mental Status * Because of a physical, mental, or emotional condition, do you have serious difficulty concentrating, remembering, or making decisions? Answer Entry Date Author Status No 01/08/2018 11:10 AM Magali Wynne RN Active documented in this encounter Plan of Treatment Upcoming Encounters Date Type Department Care Team (Late st Contact Info) Description 05/26/2024 1:15 PM CDT Appointment [facility] [place] [address] Merline Fair MD [address] [place] [address] 05/26/2024 1:30 PM CDT Office Visit [facility] [place] [phone] Merline Fair MD [address] [place] [address] documented as of this encounter Visit Diagnoses [...] Rule Out 02/01/2021 02/01/2021 02/02/2021 8:46 PM STATISTICAL PROGRAMMER ANALYST COVID-19 Rule Out 02/07/2021 02/07/2021 02/08/2021 7:40 PM STATISTICAL PROGRAMMER ANALYST COVID-19 Rule Out 03/02/2021 03/02/2021 03/03/2021 1:53 PM STATISTICAL PROGRAMMER ANALYST COVID-19 Rule Out 06/01/2021 06/02/2021 06/02/2021 2:57 PM CDT COVID-19 Rule Out 08/16/2021 08/16/2021 08/16/2021 6:20 AM CDT COVID-19 Confirmed 08/16/2021 08/16/2021 12:32 AM CDT COVID-19 Rule Out 03/26/2022 03/26/2022 03/26/2022 3:12 PM STATISTICAL PROGRAMMER ANALYST COVID-19 Rule Out 02/26/2024 02/26/2024 02/26/2024 5:21 PM STATISTICAL PROGRAMMER ANALYST COVID-19 Rule Out 02/27/2024 02/27/2024 02/27/2024 4:21 PM STATISTICAL PROGRAMMER ANALYST documented as of this encounter Care Teams Fairing Worker Relationship Specialty Start Date End Date Rohan Johnson MD [address] [place] [phone] PCP - General FAMILY PRACTICE 10/15/17 08/11/18 Fermin Whitt MD [address] [place] [phone] PCP - General FAMILY PRACTICE 08/12/18 07/14/19 Sundar Chisholm DO [address] [place] [phone] PCP - General FAMILY PRACTICE 07/15/19 12/14/20 Simon Field MD [address] [place] [phone] PCP - General FAMILY PRACTICE 12/15/20 12/22/20 Simon Field MD [address] [place] [phone] PCP - General FAMILY PRACTICE 12/23/20 03/02/21 Juhi Bassett FNP [address] [place] [phone] PCP - General NURSE PRACTITIONER 03/03/21 12/11/22 Ankur Jorge FNP [address] [place] [phone] PCP - General Nurse Practitioner [facility] 12/12/22 Simon Field MD [facility] [place] [address] FAMILY PRACTICE 12/23/20 Rohan Johnson MD [address] [place] [phone] FAMILY PRACTICE 10/15/17 12/14/20 Kiko Snyder MD [address] [place] [phone] Consulting Physician ORTHOPAEDIC SPINE SURGERY 10/03/17 Kiko Snyder MD [address] [place] [phone] Consulting Physician ORTHOPAEDIC SPINE SURGERY 10/03/17 12/14/20 Merline Fair MD [address] [place] [address] Consulting Physician CARDIOVASCULAR DISEASE 12/15/20 Christopher Stone MD [address] [place] [address] Consulting Physician INTERVENTIONAL CARDIOLOGY 06/25/22 documented as of this encounter
--- OUTSIDE RECORDS SUMMARY | 2024-05-23 12:54 | XMS_ITS ---
Care Plan - [facility] Created on: May 23, 2024 NIURKA CROCKER III : 1980 Sex: Male Author Organization [facility] Address [address] [place] [address] Phone Care Team Providers Care Russian Language Professor Name Role Phone YUE LOVETT MD Unavailable [phone] ARTURO AMOR DO Unavailable [phone]
--- OUTSIDE RECORDS SUMMARY | 2024-05-23 12:54 | XMS_ITS | Clinical Summary ---
Author Organization [facility] Address [address] [place] [address] Phone Care Team Providers Care Filing Or Registry Clerk Name Role Phone YUE LOVETT MD Unavailable [phone] ARTURO AMOR DO Unavailable [phone] Reason for Visit and Chief Complaint RX ISSUE/REFILL Problems Includes: Problems addressed during this encounter and other active Problems All Visits Onset Date Resolved Date Provider Condition S tatus Anxiety Disorder Nos Unknown LIAM G NEEL BOXING AND PRESSING SUPERVISOR-FPA, YOUTH MINISTRY DIRECTOR-BC Active Last Documented On 3 10:42AM ; [facility] Neurogenic Arthritis Unknown LIAM G NEEL BOXING AND PRESSING SUPERVISOR-FPA, YOUTH MINISTRY DIRECTOR-BC Active Last Documented On 3 10:20AM ; [facility] Coronary Artery Disease Unknown LIAM G KU LP BOXING AND PRESSING SUPERVISOR-FPA, YOUTH MINISTRY DIRECTOR-BC Active Last Documented On 3 10:35AM ; [facility] Type 2 Diabetes with Diabeti c Neuropathy Unknown LIAM G NEEL BOXING AND PRESSING SUPERVISOR-FPA, YOUTH MINISTRY DIRECTOR-BC Active Last Documented On 3 12:11PM ; [facility] Type 2 Diabetes with Diabeti c Retinopathy Unknown LIAM G NEEL BOXING AND PRESSING SUPERVISOR-FPA, YOUTH MINISTRY DIRECTOR-BC Active Last Documented On 3 10:41AM ; [facility] End Stage Renal Disease Unknown ANTHONY SSA G NEEL BOXING AND PRESSING SUPERVISOR-FPA, YOUTH MINISTRY DIRECTOR-BC Active Last Documented On 3 10:41AM ; [facility] Note: on Dialysis Essential Hypertension Unknown JUAN ALBERTO SA G NEEL BOXING AND PRESSING SUPERVISOR-FPA, YOUTH MINISTRY DIRECTOR-BC Active Last Documented On 3 10:41AM ; [facility] Plan of Treatment No Plan of Treatment Recorded Assessments Includes: Assessments from this encounter No Assessments Recorded Medical Equipment - Implanted Devices Includes: Current Devices No Medical Equipment Recorded Medications Includes: Medications discussed during this encounter and other current Medications New / Renewed during this visit VALERY ROBINS on 07/24/2023 HYDROcodone-Acetaminophen 5- 325 MG Oral Tablet Provider: VALERY ROBINS 30 day supply: 100 tablet, 0 refills Diagnosis: Low back pain, unspecified One tablet three to four jamarcus es a day as needed for severe pain [30 day script] Pharmacy: [address], [address] - Last Documented On 4 3:58PM By LIAM RASMUSSEN ; [facility] Current Medications (continue as prescribed) HYDROcodone-Acetaminophen 5- 325 MG Oral Tablet 08/24/2023 Provider: VALERY ROBINS Diagnosis: Low back pain, unspecified One tablet three to four jamarcus es a day as needed for severe pain [30 day script] Last Documented On 4 4:05PM By LIAM RASMUSSEN ; [facility] Diclofenac Sodium 1% External Gel 06/27/2023 Provider: VALERY HUNT Diagnosis: Pain in right kn ee apply to painful joint as ne eded three times daily Last Documented On 4 1:31PM By LIAM RASMUSSEN ; [facility] Pantoprazole Sodium 40 MG Oral Tablet Delayed Release 02/19/2023 Provider: Diagnosis: Last Documented On 3 10:37AM By LIAM RASMUSSEN ; [facility] hydrALAZINE HCl 50 MG Oral Tablet 02/11/2023 Provide r: Diagnosis: Last Documented On 3 10:38AM By LIAM RASMUSSEN ; [facility] Losartan Potassium 50 MG Oral Tablet 02/11/2023 Prov ider: Diagnosis: Last Documented On 3 10:37AM By LIAM RASMUSSEN ; [facility] Eliquis 5 MG Oral Tablet 02/02/2023 Provider: Diagnosis: Last Documented On 3 10:37AM By LIAM NEEL [facility] ; [facility] Furosemide 80 MG Oral Tablet 02/02/2023 Provider: Diagnosis: Last Documented On 3 10:37AM By [facility] ; [facility] Amiodarone HCl 200 MG Oral Tablet 01/23/2023 Provide r: Diagnosis: Last Documented On 3 10:37AM By [facility] ; [facility] Atorvastatin Calcium 80 MG Oral Tablet 01/19/2023 Pr ovider: Diagnosis: Last Documented On 3 10:37AM By [facility] ; [facility] Brilinta 90 MG Oral Tablet 01/06/2023 Provider: Diagnosis: Last Documented On 3 10:37AM By LIAM NEEL [facility] ; [facility] Isosorbide Mononitrate ER 30 MG Oral Tablet Extended Release 24 Hour 01/01/2023 Provider: Diagnosis: Last Documented On 3 10:37AM By LIAM NEEL [facility] ; [facility] Cinacalcet HCl 90 MG Oral Tablet 07/26/2022 Provider : Diagnosis: Via Dialysis 3 times a week. Last Documented On 3 12:38PM By LIAM NEEL [facility] ; [facility] Calcitonin ([place]) 200 UNIT/ML Injection Solution Provider: Diagnosis: VIA Dialysis Last Documented On 3 12:38PM By LIAM NEEL [facility] ; [facility] Nitroglycerin 0.4 MG Sublingual Tablet Sublingual 07/04 Provider: Diagnosis: As needed. Last Documented On 3 12:38PM By [facility] ; [facility] Sevelamer Carbonate 800 MG Oral Tablet 07/26/2022 Pr ovider: Diagnosis: as needed. Last Documented On 3 12:38PM By LIAM NEEL [facility] ; [facility] Heparin Na (Pork) Lock Flsh PF 100 UNIT/ML Intravenous Solution 07/26/2022 Provider: Diagnosis: 600 unit / hr Via Dialysis Last Documented On 3 12:38PM By LIAM RASMUSSEN ; [facility] Mircera 50 MCG/0.3ML Injection Solution Prefilled Syri nge 07/26/2022 Provider: Diagnosis: Every 2 weeks via dialysis Last Documented On 3 12:38PM By LIAM RASMUSSEN ; [facility] NovoLOG FlexPen 100 UNIT/ML Subcutaneous Solution Pen-injector 05/17/2022 Provider: ARTURO Sanabria Diagnosis: As directed. Last Documented On 3 12:38PM By LIAM RASMUSSEN ; [facility] Medications Administered Includes: Administered Medications from this encounter No Administered Medications Recorded Results Includes: Results discussed during this encounter No Results Recorded For Specified Dates History of Present Illness Includes: History of Present Illness from this encounter No History of Present Illness Recorded Social History Description Last Updated Tobacco non-user 05/16/2023 Last Documented On 4 1:25PM ; [facility] Amount of sleep 02/19/2023 Last Documented On 4 1:25PM ; [facility] Current smoker 02/19/2023 Last Documented On 4 1:25PM ; [facility] 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/26/2022 Last Documented On 4 1:25PM ; [facility] Alcohol 07/26/2022 Last Documented On 4 1:25PM ; [facility] Amount of alcohol per day: 2-3 a month 0 07/26/2022 Last Documented On 4 1:25PM ; [facility] Difficulty walking 07/26/2022 Last Documented On 4 1:25PM ; [facility] Drug use 07/26/2022 Last Documented On 4 1:25PM ; [facility] Type: Thc gummies 07/26/2022 Last Documented On 4 1:25PM ; [facility] Smoking Status Unknown Procedures and Surgical History Surgical History Last Updated No Pacemaker 07/26/2022 Last Documented On 4 1:25PM ; [facility] Medical History Includes: Medical History addressed during this encounter Description Last Updated No Pacemaker Cardiac Stent 02/19/2023 Last Documented On 4 1:25PM ; [facility] No Pain Pump Insulin Pump ~Hepatomegaly 11/27/2022 Last Documented On 4 1:25PM ; [facility] Please list all illnesses/co nditions you have been diagnosed with: Renal failure, CHF, ,HTN, IDDM, aortic aneurysm, arthritis, retinopathy, hearing loss, neuropathy, 10/03/2022 Last Documented On 4 1:25PM ; [facility] Please list all surgeries: L eft small toe amputation 2013 ~retina left and right 2014 &16 ~fistula 2017 x2 2020 x1 ~peritoneal port insertion and removal 2016& 2018 10/03/2022 Last Documented On 4 1:25PM ; [facility] 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 07/26/2022 Last Documented On 4 1:25PM ; [facility] Has had no fall in the last 12 months. 0 07/26/2022 Last Documented On 4 1:25PM ; [facility] Family History Includes: Family History addressed during this encounter Description Last Updated Family history of Arthritis 07/26/2022 Last Documented On 4 1:25PM ; [facility] Family history of ischemic heart disease 07/26/2022 Last Documented On 4 1:25PM ; [facility] Family history of stroke/paralysis 07/26 Last Documented On 4 1:25PM ; [facility] Maternal history of family history of is chemic heart disease 07/26/2022 Last Documented On 4 1:25PM ; [facility] Maternal history of family history of ki dney disease 07/26/2022 Last Documented On 4 1:25PM ; [facility] Maternal history of stroke/paralysis Last Documented On 4 1:25PM ; [facility] Paternal history of Arthritis 07/26/2022 Last Documented On 4 1:25PM ; [facility] Paternal history of family history of is chemic heart disease 07/26/2022 Last Documented On 4 1:25PM ; [facility] Review of Systems Includes: Review of Systems [...] tive Last Documented On 4 1:15PM ; [facility] Levaquin Allergy 07/26/2022 Active Last Documented On 4 1:15PM ; [facility] Doxycycline Hyclate Allergy 06/27/2023 Active Last Documented On 4 1:15PM ; [facility] Coreg Allergy 07/26/2022 Active Last Documented On 4 1:15PM ; [facility] Carvedilol Allergy 06/27/2023 Active Last Documented On 4 1:17PM ; [facility] Encounters Encounter Provider Location Date Check-In Time Check-Out Time Diagnosis RX ISSUE/REFILL LIAM SHAIKH APRN-JULIO C, MAR-BC 07/24/2023 1:26PM 11:59PM Insurance Includes: Active Insurance Policies Plan Name Member ID Group # Subscriber Relationship Effect jesus Dates 1 - [facility] [id number] NIURKA CROCKER III Self Clinical Notes Includes: Clinical Notes from this encounter * Progress note Date Encounter Last Documented by 07/24/2023 RX ISSUE/REFILL Last documented on 07/24/2023; 1:36 PM, LIAM SHAIKH BOXING AND PRESSING SUPERVISOR-FPA, YOUTH MINISTRY DIRECTOR-BC; [facility] Active Problems & Conditions - Anxiety Disorder [...] day 3 days, 0 refills - Calcitonin ([place]) 200 UNIT/ML Injection Solution VIA Dialysis, 0 [...] gummies. Habits: Amount of sleep. 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 Allergies - Carvedilol - Coreg - [...] Care Team - YUE LOVETT MD - Fruit Buying Grader - ARTURO AMOR DO - Primary Care Health Reminders - Assess Tobacco Use satisfied 07/24/2023.
--- OUTSIDE RECORDS SUMMARY | 2024-05-23 12:54 | XMS_ITS | Clinical Summary ---
Author Organization [facility] Address [address] [place] [address] Phone Care Team Providers Care Cotton Farmer Name Role Phone YUE LOVETT MD Unavailable [phone] ARTURO AMOR DO Unavailable [phone] Reason for Visit and Chief Complaint RX ISSUE/REFILL Problems Includes: Problems addressed during this encounter and other active Problems All Visits Onset Date Resolved Date Provider Condition S tatus Anxiety Disorder Nos Unknown LIAM G NEEL [employer] MOTOR REPAIRER-FPA, BIOINFORMATICS COMPUTER SCIENTIST-BC Active Last Documented On 3 10:42AM ; [facility] Neurogenic Arthritis Unknown LIAM G NEEL [employer] MOTOR REPAIRER-FPA, BIOINFORMATICS COMPUTER SCIENTIST-BC Active Last Documented On 3 10:20AM ; [facility] Coronary Artery Disease Unknown LIAM G KU LP AIR MOTOR REPAIRER-FPA, BIOINFORMATICS COMPUTER SCIENTIST-BC Active Last Documented On 3 10:35AM ; [facility] Type 2 Diabetes with Diabeti c Neuropathy Unknown LIAM G NEEL AIR MOTOR REPAIRER-FPA, BIOINFORMATICS COMPUTER SCIENTIST-BC Active Last Documented On 3 12:11PM ; [facility] Type 2 Diabetes with Diabeti c Retinopathy Unknown LIAM G NEEL AIR MOTOR REPAIRER-FPA, BIOINFORMATICS COMPUTER SCIENTIST-BC Active Last Documented On 3 10:41AM ; [facility] End Stage Renal Disease Unknown ANTHONY SSA G NEEL AIR MOTOR REPAIRER-FPA, BIOINFORMATICS COMPUTER SCIENTIST-BC Active Last Documented On 3 10:41AM ; [facility] Note: on Dialysis Essential Hypertension Unknown JUAN ALBERTO SA G NEEL AIR MOTOR REPAIRER-FPA, BIOINFORMATICS COMPUTER SCIENTIST-BC Active Last Documented On 3 10:41AM ; [facility] Plan of Treatment No Plan of Treatment Recorded Assessments Includes: Assessments from this encounter No Assessments Recorded Medical Equipment - Implanted Devices Includes: Current Devices No Medical Equipment Recorded Medications Includes: Medications discussed during this encounter and other current Medications New / Renewed during this visit VALERY ROBINS on 08/24/2023 HYDROcodone-Acetaminophen 5- 325 MG Oral Tablet Provider: VALERY ROBINS 30 day supply: 100 tablet, 0 refills Diagnosis: Low back pain, unspecified One tablet three to four jamarcus es a day as needed for severe pain [30 day script] Pharmacy: [facility] [address], [address] - Last Documented On 4 4:05PM By LIAM RASMUSSEN ; [facility] Current Medications (continue as prescribed) Diclofenac Sodium 1% External Gel 06/27/2023 Provider: VALERY HUNT Diagnosis: Pain in right kn ee apply to painful joint as ne eded three times daily Last Documented On 4 1:31PM By LIAM RASMUSSEN ; [facility] Pantoprazole Sodium 40 MG Oral Tablet Delayed Release 02/19/2023 Provider: Diagnosis: Last Documented On 3 10:37AM By LIAM RASMUSSEN ; [facility] hydrALAZINE HCl 50 MG Oral Tablet 02/11/2023 Provide r: Diagnosis: Last Documented On 3 10:38AM By LIAM RASMUSSEN ; [facility] Losartan Potassium 50 MG Oral Tablet 02/11/2023 Prov ider: Diagnosis: Last Documented On 3 10:37AM By LIAM RASMUSSEN ; [facility] Eliquis 5 MG Oral Tablet 02/02/2023 Provider: Diagnosis: Last Documented On 3 10:37AM By LIAM RASMUSSEN ; [facility] Furosemide 80 MG Oral Tablet 02/02/2023 Provider: Diagnosis: Last Documented On 3 10:37AM By LIAM RASMUSSEN ; [facility] Amiodarone HCl 200 MG Oral Tablet 01/23/2023 Provide r: Diagnosis: Last Documented On 3 10:37AM By LIAM SHAIKH [facility] ; [facility] Atorvastatin Calcium 80 MG Oral Tablet 01/19/2023 Pr ovider: Diagnosis: Last Documented On 3 10:37AM By LIAM NEEL [facility] ; [facility] Brilinta 90 MG Oral Tablet 01/06/2023 Provider: Diagnosis: Last Documented On 3 10:37AM By LIAM SHAIKH [facility] ; [facility] Isosorbide Mononitrate ER 30 MG Oral Tablet Extended Release 24 Hour 01/01/2023 Provider: Diagnosis: Last Documented On 3 10:37AM By LIAM SHAIKH [facility] ; [facility] Cinacalcet HCl 90 MG Oral Tablet 07/26/2022 Provider : Diagnosis: Via Dialysis 3 times a week. Last Documented On 3 12:38PM By LIAM SHAIKH [facility] ; [facility] Calcitonin ([place]) 200 UNIT/ML Injection Solution Provider: Diagnosis: VIA Dialysis Last Documented On 3 12:38PM By LIAM SHAIKH [facility] ; [facility] Nitroglycerin 0.4 MG Sublingual Tablet Sublingual 07/04 Provider: Diagnosis: As needed. Last Documented On 3 12:38PM [facility] ; [facility] Sevelamer Carbonate 800 MG Oral Tablet 07/26/2022 Pr ovider: Diagnosis: as needed. Last Documented On 3 12:38PM By LIAM SHAIKH [facility] ; [facility] Heparin Na (Pork) Lock Flsh PF 100 UNIT/ML Intravenous Solution 07/26/2022 Provider: Diagnosis: 600 unit / hr Via Dialysis Last Documented On 3 12:38PM By LIAM SHAIKH [facility] ; [facility] Mircera 50 MCG/0.3ML Injection Solution Prefilled Syri nge 07/26/2022 Provider: Diagnosis: Every 2 weeks via dialysis Last Documented On 3 12:38PM By LIAM SHAIKH [facility] ; [facility] NovoLOG FlexPen 100 UNIT/ML Subcutaneous Solution Pen-injector 05/17/2022 Provider: ARTURO Sanabria Diagnosis: As directed. Last Documented On 3 12:38PM [facility] Medications Administered Includes: Administered Medications from this encounter No Administered Medications Recorded Results Includes: Results discussed during this encounter No Results Recorded For Specified Dates History of Present Illness Includes: History of Present Illness from this encounter No History of Present Illness Recorded Social History Description Last Updated Tobacco non-user 05/16/2023 Last Documented On 4 1:28PM ; [facility] Amount of sleep 02/19/2023 Last Documented On 4 1:28PM ; [facility] Current smoker 02/19/2023 Last Documented On 4 1:28PM ; [facility] 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] 07/26/2022 Last Documented On 4 1:28PM ; [facility] Alcohol 07/26/2022 Last Documented On 4 1:28PM ; [facility] Amount of alcohol per day: 2-3 a month 0 07/26/2022 Last Documented On 4 1:28PM ; [facility] Difficulty walking 07/26/2022 Last Documented On 4 1:28PM ; [facility] Drug use 07/26/2022 Last Documented On 4 1:28PM ; [facility] Type: Thc gummies 07/26/2022 Last Documented On 4 1:28PM ; [facility] Smoking Status Unknown Procedures and Surgical History Surgical History Last Updated No Pacemaker 07/26/2022 Last Documented On 4 1:28PM ; [facility] Medical History Includes: Medical History addressed during this encounter Description Last Updated No Pacemaker Cardiac Stent 02/19/2023 Last Documented On 4 1:28PM ; [facility] No Pain Pump Insulin Pump ~Hepatomegaly 11/27/2022 Last Documented On 4 1:28PM ; [facility] Please list all illnesses/co nditions you have been diagnosed with: Renal failure, CHF, ,HTN, IDDM, aortic aneurysm, arthritis, retinopathy, hearing loss, neuropathy, 10/03/2022 Last Documented On 4 1:28PM ; [facility] Please list all surgeries: L eft small toe amputation 2014 ~retina left and right 2015 &16 ~fistula 2018 x2 2020 x1 ~peritoneal port insertion and removal 2016& 2018 10/03/2022 Last Documented On 4 1:28PM ; [facility] 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 07/26/2022 Last Documented On 4 1:28PM ; [facility] Has had no fall in the last 12 months. 0 07/26/2022 Last Documented On 4 1:28PM ; [facility] Family History Includes: Family History addressed during this encounter Description Last Updated Family history of Arthritis 07/26/2022 Last Documented On 4 1:28PM ; [facility] Family history of ischemic heart disease 07/26/2022 Last Documented On 4 1:28PM ; [facility] Family history of stroke/paralysis 07/26 Last Documented On 4 1:28PM ; [facility] Maternal history of family history of is chemic heart disease 07/26/2022 Last Documented On 4 1:28PM ; [facility] Maternal history of family history of ki dney disease 07/26/2022 Last Documented On 4 1:28PM ; [facility] Maternal history of stroke/paralysis Last Documented On 4 1:28PM ; [facility] Paternal history of Arthritis 07/26/2022 Last Documented On 4 1:28PM ; [facility] Paternal history of family history of is chemic heart disease 07/26/2022 Last Documented On 4 1:28PM ; [facility] Review of Systems Includes: Review of Systems [...] tive Last Documented On 4 1:15PM ; [facility] Levaquin Allergy 07/26/2022 Active Last Documented On 4 1:15PM ; [facility] Doxycycline Hyclate Allergy 06/27/2023 Active Last Documented On 4 1:15PM ; [facility] Coreg Allergy 07/26/2022 Active Last Documented On 4 1:15PM ; [facility] Carvedilol Allergy 06/27/2023 Active Last Documented On 4 1:17PM ; [facility] Encounters Encounter Provider Location Date Check-In Time Check-Out Time Diagnosis RX ISSUE/REFILL LIAM SHAIKH [employer] MOT[employer] REPAIRER-FPA, BIOINFORMATICS COMPUTER SCIENTIST-BC 08/24/2023 1:28PM 11:59PM Insurance Includes: Active Insurance Policies Plan Name Member ID Group # Subscriber Relationship Effect jesus Dates 1 - [facility] [id number] NIURKA CROCKER III Self Clinical Notes Includes: Clinical Notes from this encounter * Progress note Date Encounter Last Documented by 08/24/2023 RX ISSUE/REFILL Last documented on 08/24/2023; 3:58 PM, LIAM SHAIKH [employer] MOT[employer] REPAIRER-FPA, BIOINFORMATICS COMPUTER SCIENTIST-BC; [facility] Active Problems & Conditions - Anxiety Disorder [...] day 3 days, 0 refills - Calcitonin ([place]) 200 UNIT/ML Injection Solution VIA Dialysis, 0 [...] gummies. Habits: Amount of sleep. 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 Allergies - Carvedilol - Coreg - Doxycycline [...] Care Team - YUE LOVETT MD - Syrup Filterer - ARTURO AMOR DO - Primary Care Health Reminders - Assess Tobacco Use satisfied 08/24/2023.
--- OUTSIDE RECORDS SUMMARY | 2024-05-23 12:55 | XMS_ITS ---
Author Organization [facility] Address [address] [place] [address] Care Team Providers Care Production Cell Leader Name Role Phone Sundar Chisholm DO Primary Care Provider Marcus Florence MD Unavailable [phone] Ricki Mills MD Unavailable [phone] Dialysis Access Sites Type Status Location Placement Date Removal Da te Hemodialysis AV Access 11/14/23 Upper arm Active Left Upper Arm - Anterior 11/14/2023 Procedures Procedure Name Priority Date/Time Associated Diagnosis Comments TRANSFUSE RED BLOOD CELLS Timed 04/04/2024 11:28 AM RADIO FREQUENCY ENGINEER PREPARE RBC Timed 04/04/2024 10:08 AM RADIO FREQUENCY ENGINEER EGFR Routine 04/04/2024 7:35 AM RADIO FREQUENCY ENGINEER DIFFERENTIAL AUTO Routine 04/04/2024 7:3 5 AM RADIO FREQUENCY ENGINEER CRP (ACUTE PHASE) Routine 04/04/2024 7:3 5 AM RADIO FREQUENCY ENGINEER BASIC METABOLIC PANEL Routine 04/04/2024 7:35 AM RADIO FREQUENCY ENGINEER CBC WITH AUTO DIFFERENTIAL Routine 04/04/2024 7:35 AM RADIO FREQUENCY ENGINEER CROSSMATCH Timed 04/03/2024 3:37 PM RADIO FREQUENCY ENGINEER DIFFERENTIAL AUTO Timed 04/03/2024 3:3 7 PM RADIO FREQUENCY ENGINEER ANTIBODY SCREEN Timed 04/03/2024 3:37 PM RADIO FREQUENCY ENGINEER ABO/RH Timed 04/03/2024 3:37 PM RADIO FREQUENCY ENGINEER TYPE AND SCREEN Timed 04/03/2024 3:37 PM RADIO FREQUENCY ENGINEER CBC WITH AUTO DIFFERENTIAL Timed 04/03/2024 3:37 PM RADIO FREQUENCY ENGINEER HEMODIALYSIS Routine 04/03/2024 9:15 AM RADIO FREQUENCY ENGINEER CRP (ACUTE PHASE) Routine 04/03/2024 8:0 0 AM RADIO FREQUENCY ENGINEER HAPTOGLOBIN Routine 04/03/2024 8:00 AM RADIO FREQUENCY ENGINEER EGFR Routine 04/03/2024 8:00 AM RADIO FREQUENCY ENGINEER DIFFERENTIAL AUTO Routine 04/03/2024 8:0 0 AM RADIO FREQUENCY ENGINEER BASIC METABOLIC PANEL Routine 04/03/2024 8:00 AM RADIO FREQUENCY ENGINEER CBC WITH AUTO DIFFERENTIAL Routine 04/03/2024 8:00 AM RADIO FREQUENCY ENGINEER EGFR Routine 04/02/2024 2:15 PM RADIO FREQUENCY ENGINEER DIFFERENTIAL AUTO Routine 04/02/2024 2:1 5 PM RADIO FREQUENCY ENGINEER VITAMIN D 25 HYDROXY Timed 04/02/2024 2:15 PM RADIO FREQUENCY ENGINEER VITAMIN B12 Timed 04/02/2024 2:15 PM RADIO FREQUENCY ENGINEER FOLATE Timed 04/02/2024 2:15 PM RADIO FREQUENCY ENGINEER BASIC METABOLIC PANEL Routine 04/02/2024 2:15 PM RADIO FREQUENCY ENGINEER CBC WITH AUTO DIFFERENTIAL Routine 04/02/2024 2:15 PM RADIO FREQUENCY ENGINEER US VEIN DUPLEX LOWER EXTREMITY RIGHT LIMITED IP Routine 04/01/2024 3:45 PM RADIO FREQUENCY ENGINEER BUN STAT 04/01/2024 12:41 PM RADIO FREQUENCY ENGINEER PTH Routine 04/01/2024 10:05 AM RADIO FREQUENCY ENGINEER EGFR Routine 04/01/2024 9:32 AM RADIO FREQUENCY ENGINEER DIFFERENTIAL AUTO Routine 04/01/2024 9:3 2 AM RADIO FREQUENCY ENGINEER COMPREHENSIVE METABOLIC PANEL Routine 04/01/2024 9:32 AM RADIO FREQUENCY ENGINEER FERRITIN Routine 04/01/2024 9:32 AM RADIO FREQUENCY ENGINEER IRON PROFILE W/ IBC Routine 04/01/2024 9 :32 AM RADIO FREQUENCY ENGINEER PHOSPHORUS Routine 04/01/2024 9:32 AM RADIO FREQUENCY ENGINEER CBC WITH AUTO DIFFERENTIAL Routine 04/01/2024 9:32 AM RADIO FREQUENCY ENGINEER HEMODIALYSIS Routine 03/31/2024 1:24 PM RADIO FREQUENCY ENGINEER POCT GLUCOSE DEVICE Routine 03/31/2024 1 2:51 PM RADIO FREQUENCY ENGINEER SURGICAL PATHOLOGY Routine 03/31/2024 12 :03 PM RADIO FREQUENCY ENGINEER Gangrene (HCC) LA AN PROCEDURE PLACEHOLDER Routine 03/31/2024 11:44 AM RADIO FREQUENCY ENGINEER LA AN ELECTIVE SUPRAGLOTTIC AIRWAY Routine 03/31/2024 11:44 AM RADIO FREQUENCY ENGINEER AMPUTATION TRANSMETATARSAL 03/31/2024 11:28 AM RADIO FREQUENCY ENGINEER EGFR Routine 03/31/2024 7:41 AM RADIO FREQUENCY ENGINEER DIFFERENTIAL AUTO Routine 03/31/2024 7:4 1 AM RADIO FREQUENCY ENGINEER VANCOMYCIN LEVEL RANDOM Routine 03/31/19 7:41 AM RADIO FREQUENCY ENGINEER CBC WITH AUTO DIFFERENTIAL Routine 03/31/2024 7:41 AM RADIO FREQUENCY ENGINEER BASIC METABOLIC PANEL Routine 03/31/2024 7:41 AM RADIO FREQUENCY ENGINEER APTT Routine 03/31/2024 7:41 AM RADIO FREQUENCY ENGINEER PROTIME-INR Routine 03/31/2024 7:41 AM RADIO FREQUENCY ENGINEER CBC WITHOUT DIFFERENTIAL Routine 03/31/2024 7:41 AM RADIO FREQUENCY ENGINEER ALBUMIN Routine 03/30/2024 7:07 AM RADIO FREQUENCY ENGINEER PREALBUMIN Routine 03/30/2024 7:07 AM RADIO FREQUENCY ENGINEER EGFR Routine 03/30/2024 7:07 AM RADIO FREQUENCY ENGINEER DIFFERENTIAL AUTO Routine 03/30/2024 7:0 7 AM RADIO FREQUENCY ENGINEER CBC WITH AUTO DIFFERENTIAL Routine 03/30/2024 7:07 AM RADIO FREQUENCY ENGINEER BASIC METABOLIC PANEL Routine 03/30/2024 7:07 AM RADIO FREQUENCY ENGINEER HEMODIALYSIS Routine 03/30/2024 12:31 AM RADIO FREQUENCY ENGINEER TRANSFUSE RED BLOOD CELLS Timed 03/29/2024 4:50 PM RADIO FREQUENCY ENGINEER PREPARE RBC Timed 03/29/2024 4:28 PM RADIO FREQUENCY ENGINEER CROSSMATCH Timed 03/29/2024 3:47 PM RADIO FREQUENCY ENGINEER ANTIBODY SCREEN Timed 03/29/2024 3:47 PM RADIO FREQUENCY ENGINEER ABO/RH Timed 03/29/2024 3:47 PM RADIO FREQUENCY ENGINEER TYPE AND SCREEN Timed 03/29/2024 3:47 PM RADIO FREQUENCY ENGINEER HEMODIALYSIS Routine 03/29/2024 8:31 AM RADIO FREQUENCY ENGINEER EGFR Routine 03/29/2024 7:40 AM RADIO FREQUENCY ENGINEER DIFFERENTIAL AUTO Routine 03/29/2024 7:4 0 AM RADIO FREQUENCY ENGINEER VANCOMYCIN LEVEL RANDOM Timed 03/29/19 7:40 AM RADIO FREQUENCY ENGINEER CBC WITH AUTO DIFFERENTIAL Routine 03/29/2024 7:40 AM RADIO FREQUENCY ENGINEER BASIC METABOLIC PANEL Routine 03/29/2024 7:40 AM RADIO FREQUENCY ENGINEER EGFR Routine 03/28/2024 7:00 AM RADIO FREQUENCY ENGINEER DIFFERENTIAL AUTO Routine 03/28/2024 7:0 0 AM RADIO FREQUENCY ENGINEER VANCOMYCIN LEVEL RANDOM Timed 03/28/19 7:00 AM RADIO FREQUENCY ENGINEER CBC WITH AUTO DIFFERENTIAL Routine 03/28/2024 7:00 AM RADIO FREQUENCY ENGINEER BASIC METABOLIC PANEL Routine 03/28/2024 7:00 AM RADIO FREQUENCY ENGINEER TRANSFUSE RED BLOOD CELLS Timed 03/27/2024 2:33 PM RADIO FREQUENCY ENGINEER PREPARE RBC Timed 03/27/2024 1:26 PM RADIO FREQUENCY ENGINEER EGFR Routine 03/27/2024 12:18 PM RADIO FREQUENCY ENGINEER DIFFERENTIAL AUTO Routine 03/27/2024 12: 18 PM RADIO FREQUENCY ENGINEER CBC WITH AUTO DIFFERENTIAL Routine 03/27/2024 12:18 PM RADIO FREQUENCY ENGINEER BASIC METABOLIC PANEL Routine 03/27/2024 12:18 PM RADIO FREQUENCY ENGINEER BLOOD CULTURE STAT 03/27/2024 12:18 PM RADIO FREQUENCY ENGINEER HEMODIALYSIS Routine 03/27/2024 9:43 AM RADIO FREQUENCY ENGINEER BLOOD CULTURE STAT 03/26/2024 11:23 AM RADIO FREQUENCY ENGINEER CROSSMATCH Timed 03/26/2024 5:05 AM RADIO FREQUENCY ENGINEER VANCOMYCIN LEVEL RANDOM Routine 03/26/19 5:05 AM RADIO FREQUENCY ENGINEER EGFR Routine 03/26/2024 5:05 AM RADIO FREQUENCY ENGINEER DIFFERENTIAL AUTO Routine 03/26/2024 5:0 5 AM RADIO FREQUENCY ENGINEER ANTIBODY SCREEN Timed 03/26/2024 5:05 AM RADIO FREQUENCY ENGINEER ABO/RH Timed 03/26/2024 5:05 AM RADIO FREQUENCY ENGINEER CBC WITH AUTO DIFFERENTIAL Routine 03/26/2024 5:05 AM RADIO FREQUENCY ENGINEER BASIC METABOLIC PANEL Routine 03/26/2024 5:05 AM RADIO FREQUENCY ENGINEER TYPE AND SCREEN Timed 03/26/2024 5:05 AM RADIO FREQUENCY ENGINEER POCT GLUCOSE DEVICE Routine 03/25/2024 5 :20 PM RADIO FREQUENCY ENGINEER POCT GLUCOSE DEVICE Routine 03/25/2024 1 2:18 PM RADIO FREQUENCY ENGINEER HEMODIALYSIS Routine 03/25/2024 11:05 AM RADIO FREQUENCY ENGINEER POCT GLUCOSE DEVICE Routine 03/25/2024 1 0:34 AM RADIO FREQUENCY ENGINEER ATHERECTOMY - PERIPHERAL Routine 03/25/2024 9:37 AM RADIO FREQUENCY ENGINEER Osteomyelitis of fourth toe of right foot (HCC) Dry gangrene (HCC) ANGIOGRAPHY UNILATERAL EXTREMITY S&I [id number] Routine 03/25/2024 9:37 AM RADIO FREQUENCY ENGINEER Osteomyelitis of fourth toe of right foot (HCC) Dry gangrene (HCC) POCT GLUCOSE DEVICE Routine 03/24/2024 8 :10 PM RADIO FREQUENCY ENGINEER POCT GLUCOSE DEVICE Routine 03/24/2024 4 :57 PM RADIO FREQUENCY ENGINEER MRI FOOT RIGHT WO CONTRAST IP Routine 03/24/2024 3:20 PM RADIO FREQUENCY ENGINEER POCT GLUCOSE DEVICE Routine 03/24/2024 1 2:35 PM RADIO FREQUENCY ENGINEER HEMODIALYSIS Routine 03/24/2024 8:40 AM RADIO FREQUENCY ENGINEER EGFR Routine 03/24/2024 5:20 AM RADIO FREQUENCY ENGINEER DIFFERENTIAL AUTO Routine 03/24/2024 5:2 0 AM RADIO FREQUENCY ENGINEER VANCOMYCIN LEVEL RANDOM Timed 03/24/19 5:20 AM RADIO FREQUENCY ENGINEER CBC WITH AUTO DIFFERENTIAL Routine 03/24/2024 5:20 AM RADIO FREQUENCY ENGINEER BASIC METABOLIC PANEL Routine 03/24/2024 5:20 AM RADIO FREQUENCY ENGINEER POCT GLUCOSE DEVICE Routine 03/24/2024 4 :58 AM RADIO FREQUENCY ENGINEER POCT GLUCOSE DEVICE Routine 03/23/2024 8 :08 PM RADIO FREQUENCY ENGINEER POCT GLUCOSE DEVICE Routine 03/23/2024 5 :17 PM RADIO FREQUENCY ENGINEER TRANSFUSE RED BLOOD CELLS Timed 03/23/2024 2:15 PM RADIO FREQUENCY ENGINEER PREPARE RBC Timed 03/23/2024 1:54 PM RADIO FREQUENCY ENGINEER B ABO / RH CONFIRMATION TESTING STAT 03/23/2024 12:40 PM RADIO FREQUENCY ENGINEER CROSSMATCH Timed 03/23/2024 11:41 AM RADIO FREQUENCY ENGINEER ANTIBODY SCREEN Timed 03/23/2024 11:41 AM RADIO FREQUENCY ENGINEER ABO/RH Timed 03/23/2024 11:41 AM RADIO FREQUENCY ENGINEER TYPE AND SCREEN Timed 03/23/2024 11:41 AM RADIO FREQUENCY ENGINEER POCT GLUCOSE DEVICE Routine 03/23/2024 8 :15 AM RADIO FREQUENCY ENGINEER EGFR Routine 03/23/2024 6:15 AM RADIO FREQUENCY ENGINEER DIFFERENTIAL AUTO Routine 03/23/2024 6:1 5 AM RADIO FREQUENCY ENGINEER CBC WITH AUTO DIFFERENTIAL Routine 03/23/2024 6:15 AM RADIO FREQUENCY ENGINEER BASIC METABOLIC PANEL Routine 03/23/2024 6:15 AM RADIO FREQUENCY ENGINEER POCT GLUCOSE DEVICE Routine 03/22/2024 8 :17 PM RADIO FREQUENCY ENGINEER POCT GLUCOSE DEVICE Routine 03/22/2024 6 :38 PM RADIO FREQUENCY ENGINEER POCT GLUCOSE DEVICE Routine 03/22/2024 1 2:46 PM RADIO FREQUENCY ENGINEER POCT GLUCOSE DEVICE Routine 03/22/2024 7 :19 AM RADIO FREQUENCY ENGINEER BASIC METABOLIC PANEL Timed 03/22/2024 4:49 AM RADIO FREQUENCY ENGINEER EGFR Timed 03/22/2024 4:49 AM RADIO FREQUENCY ENGINEER DIFFERENTIAL AUTO Routine 03/22/2024 4:4 9 AM RADIO FREQUENCY ENGINEER VANCOMYCIN LEVEL RANDOM Timed 03/22/19 4:49 AM RADIO FREQUENCY ENGINEER CBC WITH AUTO DIFFERENTIAL Routine 03/22/2024 4:49 AM RADIO FREQUENCY ENGINEER POCT GLUCOSE DEVICE Routine 03/21/2024 8 :14 PM RADIO FREQUENCY ENGINEER POCT GLUCOSE DEVICE Routine 03/21/2024 5 :29 PM RADIO FREQUENCY ENGINEER HEMODIALYSIS Routine 03/21/2024 2:09 PM RADIO FREQUENCY ENGINEER US ARTERIAL DOPPLER LOWER EXTREMITY BILATERAL IP Routine 03/21/2024 1:52 PM RADIO FREQUENCY ENGINEER POCT GLUCOSE DEVICE Routine 03/21/2024 1 2:14 PM RADIO FREQUENCY ENGINEER T4, FREE Routine 03/21/2024 7:37 AM RADIO FREQUENCY ENGINEER THYROID FUNCTION CASCADE Routine 03/21/2024 7:37 AM RADIO FREQUENCY ENGINEER VANCOMYCIN LEVEL RANDOM Routine 03/21/19 7:37 AM RADIO FREQUENCY ENGINEER EGFR Routine 03/21/2024 7:37 AM RADIO FREQUENCY ENGINEER DIFFERENTIAL AUTO Routine 03/21/2024 7:3 7 AM RADIO FREQUENCY ENGINEER BASIC METABOLIC PANEL Routine 03/21/2024 7:37 AM RADIO FREQUENCY ENGINEER CBC WITH AUTO DIFFERENTIAL Routine 03/21/2024 7:37 AM RADIO FREQUENCY ENGINEER AEROBIC CULTURE AND GRAM STAIN Routine 03/21/2024 1:40 AM RADIO FREQUENCY ENGINEER BLOOD CULTURE STAT 03/20/2024 7:13 PM RADIO FREQUENCY ENGINEER EGFR STAT 03/20/2024 7:12 PM RADIO FREQUENCY ENGINEER BASIC METABOLIC PANEL STAT 03/20/2024 7:12 PM RADIO FREQUENCY ENGINEER BLOOD CULTURE STAT 03/20/2024 7:11 PM RADIO FREQUENCY ENGINEER HEMODIALYSIS Routine 03/20/2024 4:32 PM RADIO FREQUENCY ENGINEER POTASSIUM LEVEL STAT 03/20/2024 4:11 PM RADIO FREQUENCY ENGINEER HEMODIALYSIS Routine 03/20/2024 2:17 PM RADIO FREQUENCY ENGINEER XR FOOT RIGHT 3 OR MORE VIEWS ED 03/20/2024 1:30 PM RADIO FREQUENCY ENGINEER EGFR STAT 03/20/2024 1:19 PM RADIO FREQUENCY ENGINEER LIPASE STAT 03/20/2024 1:19 PM RADIO FREQUENCY ENGINEER DIFFERENTIAL AUTO STAT 03/20/2024 1:1 9 PM RADIO FREQUENCY ENGINEER COMPREHENSIVE METABOLIC PANEL STAT 03/20/2024 1:19 PM RADIO FREQUENCY ENGINEER CBC WITH AUTO DIFFERENTIAL STAT 03/20/2024 1:19 PM RADIO FREQUENCY ENGINEER DIFFERENTIAL AUTO Add On 03/12/2024 10: 56 PM RADIO FREQUENCY ENGINEER CBC WITH AUTO DIFFERENTIAL Add-On 03/12/2024 10:56 PM RADIO FREQUENCY ENGINEER TROPONIN T HIGH-SENSITIVITY 6-HOUR Timed 03/12/2024 10:56 PM RADIO FREQUENCY ENGINEER POTASSIUM LEVEL STAT 03/12/2024 7:15 PM RADIO FREQUENCY ENGINEER TROPONIN T HIGH-SENSITIVITY 2-HOUR Timed 03/12/2024 6:58 PM RADIO FREQUENCY ENGINEER HEMODIALYSIS Routine 03/12/2024 6:03 PM RADIO FREQUENCY ENGINEER EGFR STAT 03/12/2024 4:56 PM RADIO FREQUENCY ENGINEER TROPONIN T HIGH-SENSITIVITY SERIES (BASELINE, 2HR, 4HR, 6HR) STAT 03/12/2024 4:56 PM RADIO FREQUENCY ENGINEER PHOSPHORUS STAT 03/12/2024 4:56 PM RADIO FREQUENCY ENGINEER MAGNESIUM STAT 03/12/2024 4:56 PM RADIO FREQUENCY ENGINEER BASIC METABOLIC PANEL STAT 03/12/2024 4:56 PM RADIO FREQUENCY ENGINEER ECG 12-LEAD Routine 03/12/2024 4:53 PM RADIO FREQUENCY ENGINEER LA CRITICAL CARE ILL/INJURED PATIENT INIT 30-74 MIN Routine 03/12/2024 4:30 PM RADIO FREQUENCY ENGINEER HEMODIALYSIS Routine 02/28/2024 7:57 AM RADIO FREQUENCY ENGINEER EGFR Routine 02/28/2024 3:58 AM RADIO FREQUENCY ENGINEER T4, FREE Routine 02/28/2024 3:58 AM RADIO FREQUENCY ENGINEER DIFFERENTIAL AUTO Routine 02/28/2024 3:5 8 AM RADIO FREQUENCY ENGINEER MAGNESIUM Routine 02/28/2024 3:58 AM RADIO FREQUENCY ENGINEER HEMOGLOBIN A1C Routine 02/28/2024 3:58 AM RADIO FREQUENCY ENGINEER THYROID FUNCTION CASCADE Routine 02/28/2024 3:58 AM RADIO FREQUENCY ENGINEER CBC WITH AUTO DIFFERENTIAL Routine 02/28/2024 3:58 AM RADIO FREQUENCY ENGINEER PHOSPHORUS Routine 02/28/2024 3:58 AM RADIO FREQUENCY ENGINEER BASIC METABOLIC PANEL Routine 02/28/2024 3:58 AM RADIO FREQUENCY ENGINEER POTASSIUM LEVEL STAT 02/27/2024 4:30 PM RADIO FREQUENCY ENGINEER HEPATITIS B SURFACE ANTIBODY (IMMUNE STATUS) STAT 02/27/2024 4:30 PM RADIO FREQUENCY ENGINEER HEPATITIS B SURFACE ANTIGEN STAT 02/27/2024 4:30 PM RADIO FREQUENCY ENGINEER HEMODIALYSIS Routine 02/27/2024 3:48 PM RADIO FREQUENCY ENGINEER HEMODIALYSIS Routine 02/27/2024 3:39 PM RADIO FREQUENCY ENGINEER POCT GLUCOSE DEVICE Routine 02/27/2024 3 :37 PM RADIO FREQUENCY ENGINEER XR TRANSFER OF OUTSIDE FILMS Routine 02/27/2024 9:15 AM RADIO FREQUENCY ENGINEER XR TRANSFER OF OUTSIDE FILMS Routine 02/26/2024 4:40 PM RADIO FREQUENCY ENGINEER LIPID PANEL Routine 11/14/2023 5:38 AM CDT from Last 3 Months or Most Recently Relevant to Health Maintenance Allergies Active Allergy Reactions Criticality Noted Date Comments Amlodipine Shortness of breath High 10/31/2017 LE swelling Carvedilol Other (See comments) Medium 06/27/2023 Chest pain Doxycycline Rash Medium 06/27/2023 Levofloxacin Shortness of breath High 04/17/2015 Breathing Difficulty, severe rash Morphine Rash Medium 06/27/2023 Medications amiodarone (PACERONE) 200 mg tablet Take 1 tablet (200 mg total) by mouth daily 10/10/19 24 Active atorvastatin (LIPITOR) 80 mg tablet Take 1 tablet (80 mg total) by mouth daily 90 tablet 3 10/23/19 24 Active Eliquis 5 mg tablet Take 1 tablet (5 mg total) by mouth 2 (two) times a day 90 tablet 3 10/23/19 24 Active isosorbide mononitrate ER (IMDUR) 30 mg 24 hr tablet Take 1 tablet (30 mg total) by mouth daily 90 tablet 3 10/23/19 24 Active nitroglycerin (NITROSTAT) 0.[address] 1 tablet (0.3 mg total) under the tongue every 5 (five) minutes as needed for chest pain May repeat dose q 5 min, up to 3 doses total 90 tablet 3 10/23/19 24 2024 Active ticagrelor (BRILINTA) 90 mg tablet Take 1 tablet (90 mg total) by mouth 2 (two) times a day 90 tablet 3 10/23/19 24 Active cholecalciferol (VITAMIN D-3) 5,000 unit tablet Take 1 tablet (5,000 Units total) by mouth daily Active cinacalcet (SENSIPAR) 60 mg tablet Take 2 tablets (120 mg total) by mouth daily Active INSULIN SUBCUTANEOUS PUMP insulin aspart niacinamide (FIASP) 100 UNIT/ML patient supplied pump Inject under the skin Insulin pump Following provider: Charlette Type of insulin: Aspart Basal Rate: 0.86 units/hr, for a total daily dose of 20.64 units . Insulin to carb ratio (ICR): 1 unit per 15 grams of carbs Insulin sensitivity factor (ISF): 1 unit per 50 mg/dL over target BG Target B mg/dL Last date of set change: 02/26/24 in AM Back-Up Plan/Directions if pump fails or is removed: Glargine 16 units Aspart 1 units per 15 grams of carbs TIDAC Active ondansetron ODT (ZOFRAN-ODT) 4 mg disintegrating tablet 11/22/19 24 Active hydrALAZINE (APRESOLINE) 100 mg tablet Take 1 tablet (100 mg total) by mouth 2 (two) times a day 01/16/20 24 Active HYDROcodone-acetamin ophen (NORCO) 7.5-325 mg per tablet Take 1 tablet by mouth every 8 (eight) hours as needed for pain Active calcitRIOL (ROCALTROL) 0.5 mcg capsule Take 2 capsules (1 mcg total) by mouth daily Active cyanocobalamin (Vitamin B-12) 1,000 mcg tabletIndications:Pr evention of Vitamin B12 Deficiency Take 1 tablet (1,000 mcg total) by mouth daily 90 tablet 3 04/04/19 25 2025 Active epoetin jossie-epbx (RETACRIT) (20,000 unit/mL) injectionIndications :ESRD on Dialysis Infuse 0.6 mL (12,000 Units total) into a venous catheter 3 (three) times a week With hemodialysis sessions 04/04/19 Active levothyroxine (SYNTHROID) 50 mcg tablet Take 1 tablet (50 mcg total) by mouth hadoop java developer before breakfast 90 tablet 3 04/04/19 25 2025 Active metoprolol tartrate (LOPRESSOR) 25 mg immediate release tablet Take 0.5 tablets (12.5 mg total) by mouth 2 (two) times a day 90 tablet 3 04/04/19 25 2025 Active sevelamer (RENVELA) 800 mg tabletIndications:Re nal Osteodystrophy with Hyperphosphatemia Take 2 tablets (1,600 mg total) by mouth 3 (three) times a day with meals 180 tablet 11 04/04/19 25 2025 Active Additional Information Patient not taking.Reported on 05/21/[address] (PROTONIX) 40 mg EC tabletIndications:St ress Ulcer Prophylaxis Take 1 tablet (40 mg total) by mouth 2 (two) times a day 60 tablet 1 04/04/19 25 2024 Active losartan (COZAAR) 100 mg tablet Take 1 tablet (100 mg total) by mouth daily 90 tablet 3 04/04/19 25 2025 Active oxyCODONE-acetaminop hen (PERCOCET) 5-325 mg per tabletIndications:Pa in Take 2 tablets by mouth every 4 (four) hours as needed for other (for postoperative pain in right foot) 84 tablet 04/04/19 Active Additional Information Patient not taking.Reported on 05/21/2024 ramelteon (ROZEREM) 8 mg tabletIndications:Sl eep-Onset Insomnia Take 1 tablet (8 mg total) by mouth nightly as needed for sleep 7 tablet 04/04/19 25 2025 Active Additional Information Patient not taking.Reported on 05/21/2024 Active Problems Problem Noted Date Diagnosed Date 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 Incision continues to have eschar otherwise no drainage. The right heel ulceration remained stable. No drainage. Plan: Continue he will touch and weight-bearing with ambulation. Make sure to offload as much pressure is possible to the heel to allow the wound/ulcer to improve. Continue triple antibiotic ointment to the right heel wound and continue wrapping the foot with Gene wrap to control swelling. Frequent elevation of the leg throughout the day. Follow-up in 3 weeks for continued monitoring of the right heel ulceration and TMA. Assessment & Plan (05/09/2024 9:11 AM RADIO FREQUENCY ENGINEER): Impression: Patient is status post right TMA for gangrenous right foot. Sutures remain intact to the amputation site without erythema or drainage. Patient does have a superficial incision dehiscence noted to the lateral aspect. Plan: Remaining sutures removed. -Recommend daily dressing changes with Xeroform, 4 x 4, Kerlix and Gene bandage. -Recommend patient to continue heel touch only with ambulation as his postop shoe is causing knee and hip pain. Highly recommend patient to not place pressure with the ball of the foot and amputation site. -Patient to follow-up in 2 weeks for re-evaluation Anxiety about health 03/31/2024 Osteomyelitis of fourth toe of right foot 2024 Dry gangrene 03/20/2024 Assessment & Plan (04/30/2024 3:53 PM RADIO FREQUENCY ENGINEER): Status post right TMA on 03/31/2024 for gangrene toes on the right foot. The TMA incision is healing. There is a lot dry skin that was removed from around the incision. Thomas removed in the office today. Sutures remain. Small superficial ulceration noted to the posterior heel which the patient states he has been offloading pressure and putting triple antibiotic ointment 2. This seems stable clean and no signs of acute infection. We will have the patient follow-up in 1 week for hopeful removal of sutures at that time. Until then continue keeping the area clean changing the dressings daily with 4x4s and Gene wrap to the foot and triple antibiotic ointment to the small ulceration to the posterior heel. Generalized weakness 03/13/2024 Hyperkalemia 02/27/2024 Hyponatremia 02/27/2024 Essential (primary) hypertension 02/27/2024 Type 1 diabetes mellitus with hyperglycemia 02/03 Chronic diastolic congestive heart failure 02/26 Chronic stable angina 02/27/2024 Mixed hyperlipidemia 02/27/2024 Acquired hypothyroidism 02/27/2024 Paroxysmal atrial fibrillation 02/27/2024 Anemia in chronic kidney disease, on chronic percy lysis 02/27/2024 Atrial flutter 12/07/2023 ESRD on hemodialysis 12/07/2023 Secondary hypertension 11/29/2023 Assessment & Plan (11/29/2023 1:17 PM CDT): Controlled. 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 Continue insulin ESRD (end stage renal disease) on dialysis 11/13 Assessment & Plan (11/29/2023 1:16 PM CDT): Patent left upper extremity AV fistula. Follow up 3 months for routine surveillance AV duplex. NSTEMI (non-ST elevated myocardial infarction) 0 11/13/2023 Hypertensive urgency 11/13/2023 Diabetic retinopathy associa daniel with type 2 diabetes mellitus 04/20/2015 Social History Tobacco Use Types Packs/Day Years Used Date Smoking Tobacco: Never Smokeless Tobacco: Never Tobacco Cessation:Counseling Given: Not Answered [facility] Utilities Answer Date Recorded In the past 12 months has th e [employer], gas, oil, or water company threatened to shut off services in your home? No 03/21/2024 Social Connection and Isolat ion Panel [NHANES] Answer Date Recorded In a typical week, how many times do you talk on the phone with family, friends, or neighbors? More than three times a week 03/21/2024 How often do you get togethe r with friends or relatives? More than three times a week 03/21/2024 How often do you attend chur ch or islam services? Never 03/21/2024 Do you belong to any clubs o r organizations such as protestant groups, unions, fraternal or athletic groups, or school groups? No 03/21/2024 How often do you attend meet ings of the clubs or organizations you belong to? Never 03/21/2024 Are you , , di vorced, , never , or living with a partner? 03/21/2024 AUDIT-C Answer Date Recorded Q1: How often do you have a drink containing alcohol? Never 03/25/2024 Q2: How many drinks containi ng alcohol do you have on a typical day when you are drinking? Patient does not drink Q3: How often do you have si x or more drinks on one occasion? Never 03/25/2024 Overall Financial Resource Strain (CARDIA) Answe r Date Recorded How hard is it for you to pa y for the very basics like food, housing, medical care, and heating? Not hard at all 03/21/2024 PHQ-2 Answer Date Recorded PHQ-2 Total Score (If total score is 3 or more points, staff should administer the PHQ-9) 0 03/21/2024 Hunger Vital Sign Answer Date Recorded Within the past 12 months, y ou worried that your food would run out before you got the money to buy more. Never true 03/21/19 25 Within the past 12 months, t he food you bought just didn't last and you didn't have money to get more. Never true 03/21/2024 PRAPARE - Transportation Answer Date Re corded In the past 12 months, has l ack of transportation kept you from medical appointments or from getting medications? No 03/05 In the past 12 months, has l ack of transportation kept you from meetings, work, or from getting things needed for daily living? No 03/21/2024 PHQ-9 Answer Date Recorded PHQ-9 Total Score 3 03/21/2024 Housing Stability Vital Sign Answer Luis e Recorded In the last 12 months, was t here a time when you were not able to pay the mortgage or rent on time? No 03/21/2024 In the past 12 months, how m any times have you moved where you were living? 0 03/21/2024 At any time in the past 12 m [facility], were you homeless or living in a skilled nursing (including now)? No 03/21/2024 Personal Safety Answer Date Recorded Have you ever been in or are you currently in a harmful physical or emotional relationship or is someone making you feel afraid or unsafe? Denies 03/25/2024 Sex and Gender Information Value Date Recorded Sex Assigned at Not on file Legal Sex Male 10:28 AM RADIO FREQUENCY ENGINEER Gender Identity Not on file Sexual Orientation Not on file Last Filed Vital Signs Vital Sign Reading Time Taken Comments Blood Pressure 170/92 05/21/2024 10:57 AM CDT Pulse 83 05/21/2024 10:57 AM CDT Temperature 37 C (98.6 F) 04/04/2024 1:34 PM RADIO F[employer]QUENCY ENGINEER Respiratory Rate 16 04/04/2024 11:48 AM RADIO FREQUENCY ENGINEER Oxygen Saturation 97% 04/04/2024 11:48 AM RADIO FREQUENCY ENGINEER Inhaled Oxygen Concentration - - Weight 99.8 kg (220 lb) 05/21/2024 10:57 AM CDT Height 182.9 cm (6') 05/21/2024 10:57 AM CDT Body Mass Index 29.84 05/21/2024 10:57 AM CDT Results * Transfuse RBC (04/04/2024 3:28 PM RADIO FREQUENCY ENGINEER) Blood Kang Lyles MD BLOOD TRANSFUSION ORDERABLES Final Result Performing Organization Address City/State/[facility] Co de Phone Number [facility] [address] [facility] Department [place] [address] * Prepare RBC: 1 Units (04/04/2024 10:08 AM RADIO FREQUENCY ENGINEER) Units requested 1 Units requested Ready JESSIE Unit Number [id number] Product code [id number] [facility] Blood Expiration Date [id number] [facility] Product Blood Type (for scanning) 9500 [facility] Product Blood Type ONEG [facility] Dispense Status DISPENSED [facility] Blood 04/04/2024 10:0 8 AM RADIO FREQUENCY ENGINEER 04/04/2024 10:08 AM RADIO FREQUENCY ENGINEER Kang Lyles MD BLOOD BANK PRODUCT ORDERABLE S Final Result Performing Organization Address [facility] de Phone Number JESSIE [address] [employer] [place] [address] * (ABNORMAL) eGFR (04/04/2024 7:35 AM RADIO FREQUENCY ENGINEER) Pathologist [facility] eGFR 10(L) >=60 mL/min/1. 73 m2 Comment: Interpretive Data Reference Interval Normal >/= 90 mL/min/1.73m2 Mildly decreased* 60 - 89 mL/min/1.73m2 Mildly to moderately decreased 45 - 59 mL/min/1.73m2 Moderately to severely decreased 30 - 44 mL/min/1.73m2 Severely decreased 15 - 29 mL/min/1.73m2 Kidney Failure < 15 mL/min/1.73m2 *Relative to young adult level Estimated glomerular filtration rate is determined by the 2020 CKD-EPI equation recommended by the National Kidney Foundation (A Unifying Approach to GFR Estimation: Recommendations of the NKF-ASK Task Force on Reassessing the Inclusion of Race in Diagnosing Kidney Disease, JASN 2020). The CKD-EPI equation should not be used for patients with unstable renal function and has not been validated in children and those over 70. Current interpretive data was last reviewed 2021. Blood 04/04/2024 7:35 AM RADIO FREQUENCY ENGINEER 04/04/2024 8:19 AM RADIO FREQUENCY ENGINEER Kang Lyles MD LAB BLOOD ORDERABLES Final R esult Performing Organization Address City/[facility]/ZIP Co de Phone Number JESSIE [address] [place] [address] of [employer] [place] [address] * Differential, auto (04/04/2024 7:35 AM RADIO FREQUENCY ENGINEER) [facility] Neutrophil abs 3.2 1.5 - 6.5 K/cumm Imm gran abs 0.0 0.0 - 0.1 K/cumm [facility] Lymphocyte abs 0.9 0.8 - 3.3 K/cumm [facility] Monocyte abs 0.3 0.2 - 0.8 K/cumm [facility] Eosinophil abs 0.1 0.0 - 0.5 K/cumm [facility] Basophil abs 0.0 0.0 - 0.1 K/cumm [facility] Neutrophil pct 69.8 % [facility] Comment: Interpretive Data Percent cell count reference ranges are not reported, since discordance with absolute values may lead to misinterpretation of CBC data. Current Interpretive Data was last revised on 2017. Imm gran pct 0.4 % [facility] Comment: Interpretive Data Percent cell count reference ranges are not reported, since discordance with absolute values may lead to misinterpretation of CBC data. Current Interpretive Data was last revised on 2017. Lymphocyte pct 20.8 % [facility] Comment: Interpretive Data Percent cell count reference ranges are not reported, since discordance with absolute values may lead to misinterpretation of CBC data. Current Interpretive Data was last revised on 2017. Monocyte pct 6.2 % [facility] Comment: Interpretive Data Percent cell count reference ranges are not reported, since discordance with absolute values may lead to misinterpretation of CBC data. Current Interpretive Data was last revised on 2017. Eosinophil pct 2.6 % [facility] Comment: Interpretive Data Percent cell count reference ranges are not reported, since discordance with absolute values may lead to misinterpretation of CBC data. Current Interpretive Data was last revised on 2017. Basophil pct 0.2 % [facility] Comment: Interpretive Data Percent cell count reference ranges are not reported, since discordance with absolute values may lead to misinterpretation of CBC data. Current Interpretive Data was last revised on 2017. Blood 04/04/2024 7:35 AM RADIO FREQUENCY ENGINEER 04/04/2024 8:18 AM RADIO FREQUENCY ENGINEER us Ricki Mills MD LAB BLOOD ORDERABLES Final Result JESSIE [address] [facility] Department [place] [address] * (ABNORMAL) CBC with auto differential (04/04/2024 7:35 AM RADIO FREQUENCY ENGINEER) WBC 4.5 3.8 - 9.9 K/cumm Hgb 7.0(L) 13.0 - 17.5 g/dL [facility] Hct 22.6(L) 38.9 - 50.3 % [facility] Plt 195 150 - 400 K/cumm [facility] MPV 9.9 9.1 - 12.3 fL [facility] RBC 2.59(L) 4.30 - 5.80 M/cumm [facility] MCV 87.3 81.3 - 96.4 fL [facility] MCH 27.0(L) 27.1 - 33.3 pg [facility] MCHC 31.0(L) 32.3 - 35.7 g/dL [facility] RDW CV 17.5(H) 11.1 - 14.9 % [facility] RDW SD 54.2(H) 35.7 - 48.1 fL [facility] NRBC abs 0.00 0.00 - 0.01 K/cumm [facility] Blood 04/04/2024 7:35 AM RADIO FREQUENCY ENGINEER 04/04/2024 8:18 AM RADIO FREQUENCY ENGINEER us Ricki Mills MD LAB BLOOD ORDERABLES Final Result Performing Organization Address [facility] Co de Phone Number [address] [place] [address] * (ABNORMAL) CRP (acute phase) (04/04/2024 7:35 AM RADIO FREQUENCY ENGINEER) Pathologist [facility] CRP 46.9(H) <=10.0 mg/L Blood 04/04/2024 7:35 AM RADIO FREQUENCY ENGINEER 04/04/2024 8:19 AM RADIO FREQUENCY ENGINEER us Kang Lyles MD LAB BLOOD ORDERABLES Final R esult Performing Organization Address City/[facility] Co de Phone Number [address] [employer] [place] [address] * (ABNORMAL) Basic metabolic panel (04/04/2024 7:35 AM RADIO FREQUENCY ENGINEER) Pathologist [facility] Sodium 130(L) 135 - 145 mmol/L Potassium, pl 5.3(H) 3.3 - 4.9 mmol/L [facility] Chloride 91(L) 97 - 110 mmol/L [facility] CO2 28 22 - 32 mmol/L [facility] Anion gap 11 2 - 15 mmol/L [facility] BUN 37(H) 6 - 25 mg/dL [facility] Creatinine 6.68(H) 0.80 - 1.30 mg/dL [facility] Glucose 109 70 - 199 mg/dL [facility] Comment: Interpretive Data Fasting glucose >/= 126 mg/dl is diagnostic for diabetes. Fasting is defined as no caloric intake for at least 8 hours. Fasting glucose between 100 mg/dl to 125 mg/dl is diagnostic of prediabetes. In a patient with classic symptoms of hyperglycemia or hyperglycemic crisis, a random glucose >/= 200 mg/dl is diagnostic for diabetes. In the absence of unequivocal hyperglycemia, results should be confirmed by repeat testing. The classification and Diagnosis of Diabetes Diabetes Care 2021; 46: S19-S40. Current interpretive data was last revised 2022. Calcium 9.2 8.5 - 10.3 mg/dL [facility] Blood 04/04/2024 7:35 AM RADIO FREQUENCY ENGINEER 04/04/2024 8:19 AM RADIO FREQUENCY ENGINEER Kang Lyles MD LAB BLOOD ORDERABLES Final R esult [facility] [address] [facility] Department [place] [address] * Differential, auto (04/03/2024 3:37 PM RADIO FREQUENCY ENGINEER) Neutrophil abs 4.7 1.5 - 6.5 K/cumm Imm gran abs 0.0 0.0 - 0.1 K/cumm [facility] Lymphocyte abs 1.0 0.8 - 3.3 K/cumm [facility] Monocyte abs 0.4 0.2 - 0.8 K/cumm [facility] Eosinophil abs 0.1 0.0 - 0.5 K/cumm [facility] Basophil abs 0.0 0.0 - 0.1 K/cumm [facility] Neutrophil pct 75.3 % [facility] Comment: Interpretive Data Percent cell count reference ranges are not reported, since discordance with absolute values may lead to misinterpretation of CBC data. Current Interpretive Data was last revised on 2017. Imm gran pct 0.3 % [facility] Comment: Interpretive Data Percent cell count reference ranges are not reported, since discordance with absolute values may lead to misinterpretation of CBC data. Current Interpretive Data was last revised on 2017. Lymphocyte pct 15.7 % [facility] Comment: Interpretive Data Percent cell count reference ranges are not reported, since discordance with absolute values may lead to misinterpretation of CBC data. Current Interpretive Data was last revised on 2017. Monocyte pct 6.6 % [facility] Comment: Interpretive Data Percent cell count reference ranges are not reported, since discordance with absolute values may lead to misinterpretation of CBC data. Current Interpretive Data was last revised on 2017. Eosinophil pct 1.9 % [facility] Comment: Interpretive Data Percent cell count reference ranges are not reported, since discordance with absolute values may lead to misinterpretation of CBC data. Current Interpretive Data was last revised on 2017. Basophil pct 0.2 % [facility] Comment: Interpretive Data Percent cell count reference ranges are not reported, since discordance with absolute values may lead to misinterpretation of CBC data. Current Interpretive Data was last revised on 2017. Blood 04/03/2024 3:37 PM RADIO FREQUENCY ENGINEER 04/03/2024 3:42 PM RADIO FREQUENCY ENGINEER Kang Lyles MD LAB BLOOD ORDERABLES Final R esult [facility] [address] [facility] Department [place] [address] * (ABNORMAL) CBC with auto differential (04/03/2024 3:37 PM RADIO FREQUENCY ENGINEER) WBC 6.2 3.8 - 9.9 K/cumm Hgb 8.2(L) 13.0 - 17.5 g/dL [facility] Hct 25.7(L) 38.9 - 50.3 % [facility] Plt 194 150 - 400 K/cumm [facility] MPV 8.9(L) 9.1 - 12.3 fL [facility] RBC 2.99(L) 4.30 - 5.80 M/cumm [facility] MCV 86.0 81.3 - 96.4 fL [facility] MCH 27.4 27.1 - 33.3 pg [facility] MCHC 31.9(L) 32.3 - 35.7 g/dL [facility] RDW CV 17.2(H) 11.1 - 14.9 % [facility] RDW SD 52.0(H) 35.7 - 48.1 fL [facility] NRBC abs 0.00 0.00 - 0.01 K/cumm [facility] Blood 04/03/2024 3:37 PM RADIO FREQUENCY ENGINEER 04/03/2024 3:42 PM RADIO FREQUENCY ENGINEER Kang Lyles MD LAB BLOOD ORDERABLES Final R esult Performing Organization Address [facility] Co de Phone Number [address] [place] [address] * ABO/Rh (04/03/2024 3:37 PM RADIO FREQUENCY ENGINEER) ABO/Rh O Negative Blood 04/03/2024 3:37 PM RADIO FREQUENCY ENGINEER 04/03/2024 3:42 PM RADIO FREQUENCY ENGINEER Narrative [facility] - 04/03/2024 4:20 PM RADIO FREQUENCY ENGINEER Has the patient had Daratumumab or Isatuximab in the past 6 months?->Unknown Kang Lyles MD LAB BLOOD BANK TEST ORDERABL ES Final Result Performing Organization Address [facility]/ZIP Co de Phone Number [address] [place] [address] * Crossmatch (04/03/2024 3:37 PM RADIO FREQUENCY ENGINEER) Crossmatch Compatible [facility] Unit number for crossmatch [id number] [facility] Blood 04/03/2024 3:37 PM RADIO FREQUENCY ENGINEER 04/03/2024 3:42 PM RADIO FREQUENCY ENGINEER Kang Lyles MD LAB BLOOD BANK TEST ORDERABL ES Final Result Performing Organization Address City/[facility]/ZIP Co de Phone Number [address] [employer] [place] [address] * Antibody screen (04/03/2024 3:37 PM RADIO FREQUENCY ENGINEER) Fermin, indirect, Gel Interpretation Negative ABSC Blood 04/03/2024 3:37 PM RADIO FREQUENCY ENGINEER 04/03/2024 3:42 PM RADIO FREQUENCY ENGINEER Narrative [facility] - 04/03/2024 4:20 PM RADIO FREQUENCY ENGINEER Has the patient had Daratumumab or Isatuximab in the past 6 months?->Unknown Kang Lyles MD LAB BLOOD BANK TEST ORDERABL ES Final Result Performing Organization Address [facility] de Phone Number [address] [address] * (ABNORMAL) eGFR (04/03/2024 8:00 AM RADIO FREQUENCY ENGINEER) eGFR 7(L) >=60 mL/min/1. 73 m2 Comment: Interpretive Data Reference Interval Normal >/= 90 mL/min/1.73m2 Mildly decreased* 60 - 89 mL/min/1.73m2 Mildly to moderately decreased 45 - 59 mL/min/1.73m2 Moderately to severely decreased 30 - 44 mL/min/1.73m2 Severely decreased 15 - 29 mL/min/1.73m2 Kidney Failure < 15 mL/min/1.73m2 *Relative to young adult level Estimated glomerular filtration rate is determined by the 2020 CKD-EPI equation recommended by the National Kidney Foundation (A Unifying Approach to GFR Estimation: Recommendations of the NKF-ASK Task Force on Reassessing the Inclusion of Race in Diagnosing Kidney Disease, JASN 2020). The CKD-EPI equation should not be used for patients with unstable renal function and has not been validated in children and those over 70. Current interpretive data was last reviewed 2021. Blood 04/03/2024 8:00 AM RADIO FREQUENCY ENGINEER 04/03/2024 8:16 AM RADIO FREQUENCY ENGINEER us Kang Lyles MD LAB BLOOD ORDERABLES Final R esult [facility] [address] [facility] Department [place] [address] * Differential, auto (04/03/2024 8:00 AM RADIO FREQUENCY ENGINEER) Neutrophil abs 3.7 1.5 - 6.5 K/cumm Imm gran abs 0.0 0.0 - 0.1 K/cumm [facility] Lymphocyte abs 0.9 0.8 - 3.3 K/cumm [facility] Monocyte abs 0.3 0.2 - 0.8 K/cumm [facility] Eosinophil abs 0.1 0.0 - 0.5 K/cumm [facility] Basophil abs 0.0 0.0 - 0.1 K/cumm [facility] Neutrophil pct 73.9 % [facility] Comment: Interpretive Data Percent cell count reference ranges are not reported, since discordance with absolute values may lead to misinterpretation of CBC data. Current Interpretive Data was last revised on 2017. Imm gran pct 0.4 % [facility] Comment: Interpretive Data Percent cell count reference ranges are not reported, since discordance with absolute values may lead to misinterpretation of CBC data. Current Interpretive Data was last revised on 2017. Lymphocyte pct 16.8 % [facility] Comment: Interpretive Data Percent cell count reference ranges are not reported, since discordance with absolute values may lead to misinterpretation of CBC data. Current Interpretive Data was last revised on 2017. Monocyte pct 6.7 % [facility] Comment: Interpretive Data Percent cell count reference ranges are not reported, since discordance with absolute values may lead to misinterpretation of CBC data. Current Interpretive Data was last revised on 2017. Eosinophil pct 2.0 % [facility] Comment: Interpretive Data Percent cell count reference ranges are not reported, since discordance with absolute values may lead to misinterpretation of CBC data. Current Interpretive Data was last revised on 2017. Basophil pct 0.2 % [facility] Comment: Interpretive Data Percent cell count reference ranges are not reported, since discordance with absolute values may lead to misinterpretation of CBC data. Current Interpretive Data was last revised on 2017. Blood 04/03/2024 8:00 AM RADIO FREQUENCY ENGINEER 04/03/2024 8:16 AM RADIO FREQUENCY ENGINEER Ricki Mills MD LAB BLOOD ORDERABLES Final Result Performing Organization Address [facility] Co de Phone Number JESSIE [address] [address] * (ABNORMAL) CBC with auto differential (04/03/2024 8:00 AM RADIO FREQUENCY ENGINEER) [facility] WBC 5.1 3.8 - 9.9 K/cumm Hgb 7.0(L) 13.0 - 17.5 g/dL [facility] Hct 21.7(L) 38.9 - 50.3 % [facility] Plt 183 150 - 400 K/cumm [facility] MPV 9.5 9.1 - 12.3 fL [facility] RBC 2.56(L) 4.30 - 5.80 M/cumm [facility] MCV 84.8 81.3 - 96.4 fL [facility] MCH 27.3 27.1 - 33.3 pg [facility] MCHC 32.3 32.3 - 35.7 g/dL [facility] RDW CV 17.2(H) 11.1 - 14.9 % [facility] RDW SD 51.5(H) 35.7 - 48.1 fL [facility] NRBC abs 0.00 0.00 - 0.01 K/cumm [facility] Blood 04/03/2024 8:00 AM RADIO FREQUENCY ENGINEER 04/03/2024 8:16 AM RADIO FREQUENCY ENGINEER Ricki Mills MD LAB BLOOD ORDERABLES Final Result Performing Organization Address [facility] Co de Phone Number JESSIE [address] [employer] [place] [address] * (ABNORMAL) CRP (acute phase) (04/03/2024 8:00 AM RADIO FREQUENCY ENGINEER) [facility] CRP 45.0(H) <=10.0 mg/L Blood 04/03/2024 8:00 AM RADIO FREQUENCY ENGINEER 04/03/2024 8:16 AM RADIO FREQUENCY ENGINEER Kang Lyles MD LAB BLOOD ORDERABLES Final R esult Performing Organization Address [facility] de Phone Number [address] [address] * (ABNORMAL) Haptoglobin (04/03/2024 8:00 AM RADIO FREQUENCY ENGINEER) [facility] Haptoglobin 215(H) 30 - 200 mg/dL Blood 04/03/2024 8:00 AM RADIO FREQUENCY ENGINEER 04/03/2024 8:16 AM RADIO FREQUENCY ENGINEER Kang Lyles MD LAB BLOOD ORDERABLES Final R esult Performing Organization Address [facility] de Phone Number [address] [address] * (ABNORMAL) Basic metabolic panel (04/03/2024 8:00 AM RADIO FREQUENCY ENGINEER) [facility] Sodium 131(L) 135 - 145 mmol/L Potassium, pl 5.5(H) 3.3 - 4.9 mmol/L [facility] Chloride 92(L) 97 - 110 mmol/L [facility] CO2 27 22 - 32 mmol/L [facility] Anion gap 12 2 - 15 mmol/L [facility] BUN 51(H) 6 - 25 mg/dL [facility] Creatinine 8.91(H) 0.80 - 1.30 mg/dL [facility] Glucose 114 70 - 199 mg/dL [facility] Comment: Interpretive Data Fasting glucose >/= 126 mg/dl is diagnostic for diabetes. Fasting is defined as no caloric intake for at least 8 hours. Fasting glucose between 100 mg/dl to 125 mg/dl is diagnostic of prediabetes. In a patient with classic symptoms of hyperglycemia or hyperglycemic crisis, a random glucose >/= 200 mg/dl is diagnostic for diabetes. In the absence of unequivocal hyperglycemia, results should be confirmed by repeat testing. The classification and Diagnosis of Diabetes Diabetes Care 202; 46: S19-S40. Current interpretive data was last revised 2022. Calcium 8.7 8.5 - 10.3 mg/dL [facility] Blood 04/03/2024 8:00 AM RADIO FREQUENCY ENGINEER 04/03/2024 8:16 AM RADIO FREQUENCY ENGINEER Kang Lyles MD LAB BLOOD ORDERABLES Final R esult Performing Organization Address City/[facility] Co de Phone Number JESSIE [address] [place] [address] * (ABNORMAL) eGFR (04/02/2024 2:15 PM RADIO FREQUENCY ENGINEER) eGFR 8(L) >=60 mL/min/1. 73 m2 Comment: Interpretive Data Reference Interval Normal >/= 90 mL/min/1.73m2 Mildly decreased* 60 - 89 mL/min/1.73m2 Mildly to moderately decreased 45 - 59 mL/min/1.73m2 Moderately to severely decreased 30 - 44 mL/min/1.73m2 Severely decreased 15 - 29 mL/min/1.73m2 Kidney Failure < 15 mL/min/1.73m2 *Relative to young adult level Estimated glomerular filtration rate is determined by the 2020 CKD-EPI equation recommended by the National Kidney Foundation (A Unifying Approach to GFR Estimation: Recommendations of the NKF-ASK Task Force on Reassessing the Inclusion of Race in Diagnosing Kidney Disease, JASN 2020). The CKD-EPI equation should not be used for patients with unstable renal function and has not been validated in children and those over 70. Current interpretive data was last reviewed 2021. Blood 04/02/2024 2:15 PM RADIO FREQUENCY ENGINEER 04/02/2024 2:25 PM RADIO FREQUENCY ENGINEER Kang Lyles MD LAB BLOOD ORDERABLES Final R esult Performing Organization Address City/[facility] Co de Phone Number JESSIE [address] [facility] [place] [address] * Differential, auto (04/02/2024 2:15 PM RADIO FREQUENCY ENGINEER) Pathologist [facility] Neutrophil abs 3.9 1.5 - 6.5 K/cumm Imm gran abs 0.0 0.0 - 0.1 K/cumm [facility] Lymphocyte abs 0.8 0.8 - 3.3 K/cumm [facility] Monocyte abs 0.4 0.2 - 0.8 K/cumm [facility] Eosinophil abs 0.1 0.0 - 0.5 K/cumm [facility] Basophil abs 0.0 0.0 - 0.1 K/cumm [facility] Neutrophil pct 75.4 % [facility] Comment: Interpretive Data Percent cell count reference ranges are not reported, since discordance with absolute values may lead to misinterpretation of CBC data. Current Interpretive Data was last revised on 2017. Imm gran pct 0.8 % [facility] Comment: Interpretive Data Percent cell count reference ranges are not reported, since discordance with absolute values may lead to misinterpretation of CBC data. Current Interpretive Data was last revised on 2017. Lymphocyte pct 15.1 % [facility] Comment: Interpretive Data Percent cell count reference ranges are not reported, since discordance with absolute values may lead to misinterpretation of CBC data. Current Interpretive Data was last revised on 2017. Monocyte pct 7.0 % [facility] Comment: Interpretive Data Percent cell count reference ranges are not reported, since discordance with absolute values may lead to misinterpretation of CBC data. Current Interpretive Data was last revised on 2017. Eosinophil pct 1.5 % [facility] Comment: Interpretive Data Percent cell count reference ranges are not reported, since discordance with absolute values may lead to misinterpretation of CBC data. Current Interpretive Data was last revised on 2017. Basophil pct 0.2 % [facility] Comment: Interpretive Data Percent cell count reference ranges are not reported, since discordance with absolute values may lead to misinterpretation of CBC data. Current Interpretive Data was last revised on 2017. Blood 04/02/2024 2:15 PM RADIO FREQUENCY ENGINEER 04/02/2024 2:25 PM RADIO FREQUENCY ENGINEER us Ricki Mills MD LAB BLOOD ORDERABLES Final Result JESSIE [address] [address] * (ABNORMAL) CBC with auto differential (04/02/2024 2:15 PM RADIO FREQUENCY ENGINEER) [facility] WBC 5.2 3.8 - 9.9 K/cumm Hgb 7.5(L) 13.0 - 17.5 g/dL [facility] Hct 24.0(L) 38.9 - 50.3 % [facility] Plt 208 150 - 400 K/cumm [facility] MPV 9.5 9.1 - 12.3 fL [facility] RBC 2.78(L) 4.30 - 5.80 M/cumm [facility] MCV 86.3 81.3 - 96.4 fL [facility] MCH 27.0(L) 27.1 - 33.3 pg [facility] MCHC 31.3(L) 32.3 - 35.7 g/dL [facility] RDW CV 16.9(H) 11.1 - 14.9 % [facility] RDW SD 51.8(H) 35.7 - 48.1 fL [facility] NRBC abs 0.00 0.00 - 0.01 K/cumm [facility] Blood 04/02/2024 2:15 PM RADIO FREQUENCY ENGINEER 04/02/2024 2:25 PM RADIO FREQUENCY ENGINEER us Ricki Mills MD LAB BLOOD ORDERABLES Final Result Performing Organization Address [facility] de Phone Number [address] of [employer] [place] [address] * (ABNORMAL) Vitamin D 25 hydroxy (04/02/2024 2:15 PM RADIO FREQUENCY ENGINEER) [facility] Vitamin D 25-OH 14.0(L) 30.0 - 80.0 ng/mL Blood 04/02/2024 2:15 PM RADIO FREQUENCY ENGINEER 04/02/2024 2:25 PM RADIO FREQUENCY ENGINEER us Kang Lyles MD LAB BLOOD ORDERABLES Final R esult Performing Organization Address [facility] Co de Phone Number JESSIE [address] [address] * Folate (04/02/2024 2:15 PM RADIO FREQUENCY ENGINEER) [facility] Folic acid 5.4 >=5.0 ng/mL Blood 04/02/2024 2:15 PM RADIO FREQUENCY ENGINEER 04/02/2024 2:25 PM RADIO FREQUENCY ENGINEER Kang Lyles MD LAB BLOOD ORDERABLES Final R esult Performing Organization Address [facility] de Phone Number [address] [employer] [place] [address] * Vitamin B12 (04/02/2024 2:15 PM RADIO FREQUENCY ENGINEER) [facility] Vitamin B12 548 230 - 1,250 pg/mL Blood 04/02/2024 2:15 PM RADIO FREQUENCY ENGINEER 04/02/2024 2:25 PM RADIO FREQUENCY ENGINEER Kang Lyles MD LAB BLOOD ORDERABLES Final R esult Performing Organization Address [facility] de Phone Number [address] [address] * (ABNORMAL) Basic metabolic panel (04/02/2024 2:15 PM RADIO FREQUENCY ENGINEER) [facility] Sodium 135 135 - 145 mmol/L Potassium, pl 5.0(H) 3.3 - 4.9 mmol/L [facility] Chloride 93(L) 97 - 110 mmol/L [facility] CO2 29 22 - 32 mmol/L [facility] Anion gap 13 2 - 15 mmol/L [facility] BUN 42(H) 6 - 25 mg/dL [facility] Creatinine 7.61(H) 0.80 - 1.30 mg/dL [facility] Glucose 145 70 - 199 mg/dL [facility] Comment: Interpretive Data Fasting glucose >/= 126 mg/dl is diagnostic for diabetes. Fasting is defined as no caloric intake for at least 8 hours. Fasting glucose between 100 mg/dl to 125 mg/dl is diagnostic of prediabetes. In a patient with classic symptoms of hyperglycemia or hyperglycemic crisis, a random glucose >/= 200 mg/dl is diagnostic for diabetes. In the absence of unequivocal hyperglycemia, results should be confirmed by repeat testing. The classification and Diagnosis of Diabetes Diabetes Care 2021; 46: S19-S40. Current interpretive data was last revised 2022. Calcium 9.2 8.5 - 10.3 mg/dL JESSIE Blood 04/02/2024 2:15 PM RADIO FREQUENCY ENGINEER 04/02/2024 2:25 PM RADIO FREQUENCY ENGINEER Kang Lyles MD LAB BLOOD ORDERABLES Final R esult Performing Organization Address [facility] Co de Phone Number JESSIE [address] [facility] Department [place] [address] * US VEIN DUPLEX LOWER EXTREMITY RIGHT LIMITED, UNILATERAL (04/01/2024 3:45 PM RADIO FREQUENCY ENGINEER) Anatomical Region Laterality Modality Vascular Right Ultrasound 04/01/2024 Narrative 04/03/2024 11:20 AM RADIO FREQUENCY ENGINEER [employer] Job ID: [id number] [employer] Document ID: [id number] Dictated date/time: [id number] LOWER EXTREMITY VENOUS DUPLEX REASON FOR EXAM Edema. FINDINGS Veins throughout the right lower extremity show spontaneous and phasic flow with normal augmentation. Veins competent compressible. Left common femoral vein shows normal flow and compressibility as well. OVERALL IMPRESSION Negative for deep venous thrombosis right lower extremity and left common femoral vein. Job ID/Internal Job ID: [id number] us Kang Lyles MD G US PROCEDURES Final Resu lt * BUN (04/01/2024 12:41 PM RADIO FREQUENCY ENGINEER) BUN 20 6 - 25 mg/dL Blood 04/01/2024 12:4 1 PM RADIO FREQUENCY ENGINEER 04/01/2024 1:22 PM RADIO FREQUENCY ENGINEER us Royer Odom MD LAB BLOOD ORDERABLES Final Re sult Performing Organization Address City/[facility]/ZIP Co de Phone Number [address] [employer] [place] [address] * (ABNORMAL) PTH (04/01/2024 10:05 AM RADIO FREQUENCY ENGINEER) PTH 1,120(H) 15 - 65 pg/mL Blood 04/01/2024 10:0 5 AM RADIO FREQUENCY ENGINEER 04/01/2024 10:10 AM RADIO FREQUENCY ENGINEER us Royer Odom MD LAB BLOOD ORDERABLES Final Re sult Performing Organization Address [facility] de Phone Number [address] [employer] [place] [address] * (ABNORMAL) eGFR (04/01/2024 9:32 AM RADIO FREQUENCY ENGINEER) eGFR 6(L) >=60 mL/min/1. 73 m2 Comment: Interpretive Data Reference Interval Normal >/= 90 mL/min/1.73m2 Mildly decreased* 60 - 89 mL/min/1.73m2 Mildly to moderately decreased 45 - 59 mL/min/1.73m2 Moderately to severely decreased 30 - 44 mL/min/1.73m2 Severely decreased 15 - 29 mL/min/1.73m2 Kidney Failure < 15 mL/min/1.73m2 *Relative to young adult level Estimated glomerular filtration rate is determined by the 2020 CKD-EPI equation recommended by the National Kidney Foundation (A Unifying Approach to GFR Estimation: Recommendations of the NKF-ASK Task Force on Reassessing the Inclusion of Race in Diagnosing Kidney Disease, JASN 2020). The CKD-EPI equation should not be used for patients with unstable renal function and has not been validated in children and those over 70. Current interpretive data was last reviewed 2021. Blood 04/01/2024 9:32 AM RADIO FREQUENCY ENGINEER 04/01/2024 10:10 AM RADIO FREQUENCY ENGINEER us Luis Nieto MD LAB BLOOD ORDERABLES Final R esult Performing Organization Address [facility] Co de Phone Number [address] [employer] [place] [address] * Differential, auto (04/01/2024 9:32 AM RADIO FREQUENCY ENGINEER) Pathologist [facility] Neutrophil abs 3.3 1.5 - 6.5 K/cumm Imm gran abs 0.0 0.0 - 0.1 K/cumm [facility] Lymphocyte abs 0.8 0.8 - 3.3 K/cumm [facility] Monocyte abs 0.3 0.2 - 0.8 K/cumm [facility] Eosinophil abs 0.1 0.0 - 0.5 K/cumm [facility] Basophil abs 0.0 0.0 - 0.1 K/cumm [facility] Neutrophil pct 72.4 % [facility] Comment: Interpretive Data Percent cell count reference ranges are not reported, since discordance with absolute values may lead to misinterpretation of CBC data. Current Interpretive Data was last revised on 2017. Imm gran pct 0.7 % [facility] Comment: Interpretive Data Percent cell count reference ranges are not reported, since discordance with absolute values may lead to misinterpretation of CBC data. Current Interpretive Data was last revised on 2017. Lymphocyte pct 18.3 % [facility] Comment: Interpretive Data Percent cell count reference ranges are not reported, since discordance with absolute values may lead to misinterpretation of CBC data. Current Interpretive Data was last revised on 2017. Monocyte pct 6.6 % [facility] Comment: Interpretive Data Percent cell count reference ranges are not reported, since discordance with absolute values may lead to misinterpretation of CBC data. Current Interpretive Data was last revised on 2017. Eosinophil pct 1.8 % [facility] Comment: Interpretive Data Percent cell count reference ranges are not reported, since discordance with absolute values may lead to misinterpretation of CBC data. Current Interpretive Data was last revised on 2017. Basophil pct 0.2 % [facility] Comment: Interpretive Data Percent cell count reference ranges are not reported, since discordance with absolute values may lead to misinterpretation of CBC data. Current Interpretive Data was last revised on 2017. Blood 04/01/2024 9:32 AM RADIO FREQUENCY ENGINEER 04/01/2024 10:10 AM RADIO FREQUENCY ENGINEER us Ricki Mills MD LAB BLOOD ORDERABLES Final Result Performing Organization Address City/[facility]/ZIP Co de Phone Number [address] [employer] [place] [address] * (ABNORMAL) Iron profile w/ IBC (04/01/2024 9:32 AM RADIO FREQUENCY ENGINEER) Pathologist [facility] Iron 60 50 - 150 mcg/dL TIBC 181(L) 250 - 400 mcg/dL [facility] Transferrin saturation 33 20 - 50 % [facility] Blood 04/01/2024 9:32 AM RADIO FREQUENCY ENGINEER 04/01/2024 10:10 AM RADIO FREQUENCY ENGINEER Royer Odom MD LAB BLOOD ORDERABLES Final Re sult Performing Organization Address [facility] Co de Phone Number [address] [employer] [place] [address] * (ABNORMAL) CBC with auto differential (04/01/2024 9:32 AM RADIO FREQUENCY ENGINEER) Pathologist [facility] WBC 4.5 3.8 - 9.9 K/cumm Hgb 7.5(L) 13.0 - 17.5 g/dL [facility] Hct 23.1(L) 38.9 - 50.3 % [facility] Plt 178 150 - 400 K/cumm [facility] MPV 9.7 9.1 - 12.3 fL [facility] RBC 2.78(L) 4.30 - 5.80 M/cumm [facility] MCV 83.1 81.3 - 96.4 fL [facility] MCH 27.0(L) 27.1 - 33.3 pg [facility] MCHC 32.5 32.3 - 35.7 g/dL [facility] RDW CV 16.3(H) 11.1 - 14.9 % [facility] RDW SD 49.1(H) 35.7 - 48.1 fL [facility] NRBC abs 0.00 0.00 - 0.01 K/cumm [facility] Blood 04/01/2024 9:32 AM RADIO FREQUENCY ENGINEER 04/01/2024 10:10 AM RADIO FREQUENCY ENGINEER Ricki Mills MD LAB BLOOD ORDERABLES Final Result Performing Organization Address [facility] Co de Phone Number [address] [address] * (ABNORMAL) Phosphorus (04/01/2024 9:32 AM RADIO FREQUENCY ENGINEER) Pathologist [facility] Phosphorus, pl 5.5(H) 2.3 - 4.5 mg/dL Blood 04/01/2024 9:32 AM RADIO FREQUENCY ENGINEER 04/01/2024 10:10 AM RADIO FREQUENCY ENGINEER Royer Odom MD LAB BLOOD ORDERABLES Final Re sult Performing Organization Address [facility] Co de Phone Number [address] [address] * (ABNORMAL) Ferritin (04/01/2024 9:32 AM RADIO FREQUENCY ENGINEER) [facility] Ferritin 891(H) 30 - 400 ng/mL Blood 04/01/2024 9:32 AM RADIO FREQUENCY ENGINEER 04/01/2024 10:10 AM RADIO FREQUENCY ENGINEER Royer Odom MD LAB BLOOD ORDERABLES Final Re sult Performing Organization Address [facility] Co de Phone Number [address] [address] * (ABNORMAL) Comprehensive metabolic panel (04/01/2024 9:32 AM RADIO FREQUENCY ENGINEER) [facility] Sodium 131(L) 135 - 145 mmol/L Potassium, pl 5.4(H) 3.3 - 4.9 mmol/L [facility] Chloride 91(L) 97 - 110 mmol/L [facility] CO2 26 22 - 32 mmol/L [facility] Anion gap 14 2 - 15 mmol/L [facility] BUN 53(H) 6 - 25 mg/dL [facility] Creatinine 9.64(H) 0.80 - 1.30 mg/dL [facility] Glucose 127 70 - 199 mg/dL [facility] Comment: Interpretive Data Fasting glucose >/= 126 mg/dl is diagnostic for diabetes. Fasting is defined as no caloric intake for at least 8 hours. Fasting glucose between 100 mg/dl to 125 mg/dl is diagnostic of prediabetes. In a patient with classic symptoms of hyperglycemia or hyperglycemic crisis, a random glucose >/= 200 mg/dl is diagnostic for diabetes. In the absence of unequivocal hyperglycemia, results should be confirmed by repeat testing. The classification and Diagnosis of Diabetes Diabetes Care 202; 46: S19-S40. Current interpretive data was last revised 2022. Calcium 8.5 8.5 - 10.3 mg/dL [facility] Bilirubin, total 0.3 0.1 - 1.2 mg/dL [facility] Protein, pl 6.1(L) 6.5 - 8.5 g/dL [facility] Albumin 3.2(L) 3.5 - 5.0 g/dL [facility] Alk phos 292(H) 40 - 130 Units/L [facility] ALT 7 7 - 55 Units/L [facility] AST 16 10 - 50 Units/L [facility] Blood 04/01/2024 9:32 AM RADIO FREQUENCY ENGINEER 04/01/2024 10:10 AM RADIO FREQUENCY ENGINEER us Luis Nieto MD LAB BLOOD ORDERABLES Final R esult Performing Organization Address [facility] Co de Phone Number [address] [place] [address] * POCT glucose (03/31/2024 12:51 PM RADIO FREQUENCY ENGINEER) [facility] Signature Glucose, POC 150 70 - 199 mg/dL Glucose comment 1 Use This Result [facility] Glucose comment 2 RN/MD Notified [facility] Blood 03/31/2024 12:5 1 PM RADIO FREQUENCY ENGINEER 03/31/2024 12:51 PM RADIO FREQUENCY ENGINEER us Inocencia Fair MD LAB POCT ORDERABLES - DEVICE Final Result Performing Organization Address City/[facility] Co de Phone Number [place] [address] [facility] Department [place] [address] * Surgical pathology (03/31/2024 12:03 PM RADIO FREQUENCY ENGINEER) Tissue (Amputation non-tramatic) 03/31/2024 12:03 PM RADIO FREQUENCY ENGINEER Narrative PATHOLOGY [facility] - 04/01/2024 3:40 PM RADIO FREQUENCY ENGINEER [facility] Department of Pathology [address] [place] [id number] Note to Patients: This report may contain a detailed description of human tissue sent by a health care provider to the laboratory for pathologic evaluation. The content of this report is essential for diagnosis and may provide important critical findings. This information may be unfamiliar to patients to review without a medical professional present. It is advised that the patient review this report in the presence of a health care provider who can answer questions and explain the details. Final Report Patient Name: NIURKA CROCKER : 1980 (Age: 44) Gender: M Address: [address] [place] [address] Hospital #: [id number] Service: Medical Location: Patient Type: [facility] INPATIENT Taken: 03/31/2024 Received: 03/31/2024 Accessioned: 03/31/2024 Reported: 04/01/2024 Physician(s): MD Sundar Barcenas D.O. Diagnosis: Right partial foot, transmetatarsal amputation: - Ulcers, necrosis (gross diagnosis) Romulo Kee M.D. Report Electronically Reviewed and Signed Out By Romulo Kee M.D. 04/01/2024 15:40:11 Specimen(s) Received: A: Right transmetatarsal amputation Microscopic Description: Unless gross-only is specified, the final diagnosis for each specimen is based on a microscopic examination of each tissue sample. Clinical History: The patient is a 44-year-old man with gangrene of the right foot. Operative procedure: Right transmetatarsal amputation. Gross Description Received in formalin, labeled with the patient s identifiers and right transmetatarsal amputation and consists of a 10.2 x 9.4 x 3.8 cm right partial foot that is transected through the metatarsals, each of which display smooth cut resection margins. Located on the 1st-4th toes are multiple green-brown to black, focally indurated, possibly necrotic ulcers ranging from 1.5-3.7 cm. The closest ulcer (4th toe) is 2.3 cm from the skin and soft tissue resection margin. The remaining skin of the foot is goetz-ybarra, wrinkled and dull with a moderate amount of skin slippage. The attached nails are yellow and thickened. Sectioning reveals softened bone of the 3rd and 4th distal phalanges. The surrounding soft tissue is green-goetz and focally hemorrhagic. Digital photographs are taken and the specimen is for gross examination only. SURESH Cramer, PA ([facility] Microscopic slide review and interpretation for this case was performed at [facility], Department of Surgical Pathology, [address] [facility], [place] [id number] [id number] [facility] # [id number] us Ricki Mills MD LAB PATHOLOGY ORDERABLES F inal Result PATHOLOGY [facility] * LA AN ELECTIVE SUPRAGLOTTIC AIRWAY, LA AN PROCEDURE PLACEHOLDER (03/31/2024 11:44 AM RADIO FREQUENCY ENGINEER) Sukumar Koenig CRNA - 03/31/2024 11:44 AM RADIO FREQUENCY ENGINEER Sukumar Wilson CRNA 03/31/2024 11:45 AM Airway Patient location: OR Urgency: elective Indications for airway management: anesthesia Difficult airway: no Staff: Placed by: SUPERVISOR TAN ROOM: Sukumar Wilson CRNA Emergent airway documentation: Risks and benefits discussed: yes Consent obtained: yes Consent given by: patient Airway prep: Preoxygenated: yes Patient position: sniffing Mask difficulty assessment: 0 - not attempted Spontaneous ventilation during airway: absent Sedation level during airway: deep Final airway details: Final airway type: supraglottic airway Final supraglottic airway: IGel SGA size: 4 Number of attempts: 1 Additional comments: Atraumatic LMA insertion and dentition remains the same as pre-op condition. us Luis Alberto Lowe MD ANESTHESIA ORDERABLES Final R esult * (ABNORMAL) eGFR (03/31/2024 7:41 AM RADIO FREQUENCY ENGINEER) [facility] eGFR 8(L) >=60 mL/min/1. 73 m2 Comment: Interpretive Data Reference Interval Normal >/= 90 mL/min/1.73m2 Mildly decreased* 60 - 89 mL/min/1.73m2 Mildly to moderately decreased 45 - 59 mL/min/1.73m2 Moderately to severely decreased 30 - 44 mL/min/1.73m2 Severely decreased 15 - 29 mL/min/1.73m2 Kidney Failure < 15 mL/min/1.73m2 *Relative to young adult level Estimated glomerular filtration rate is determined by the 2020 CKD-EPI equation recommended by the National Kidney Foundation (A Unifying Approach to GFR Estimation: Recommendations of the NKF-ASK Task Force on Reassessing the Inclusion of Race in Diagnosing Kidney Disease, JASN 2020). The CKD-EPI equation should not be used for patients with unstable renal function and has not been validated in children and those over 70. Current interpretive data was last reviewed 2021. Blood 03/31/2024 7:41 AM RADIO FREQUENCY ENGINEER 03/31/2024 7:54 AM RADIO FREQUENCY ENGINEER us Ricki Mills MD LAB BLOOD ORDERABLES Final Result [facility] [address] [facility] Department of Laboratories [place], [place] [id number] * (ABNORMAL) Differential, auto (03/31/2024 7:41 AM RADIO FREQUENCY ENGINEER) [facility] Neutrophil abs 5.1 1.5 - 6.5 K/cumm Imm gran abs 0.1 0.0 - 0.1 K/cumm [facility] Lymphocyte abs 0.7(L) 0.8 - 3.3 K/cumm [facility] Monocyte abs 0.3 0.2 - 0.8 K/cumm [facility] Eosinophil abs 0.1 0.0 - 0.5 K/cumm [facility] Basophil abs 0.0 0.0 - 0.1 K/cumm [facility] Neutrophil pct 81.8 % JESSIE Comment: Interpretive Data Percent cell count reference ranges are not reported, since discordance with absolute values may lead to misinterpretation of CBC data. Current Interpretive Data was last revised on 2017. Imm gran pct 0.8 % [facility] Comment: Interpretive Data Percent cell count reference ranges are not reported, since discordance with absolute values may lead to misinterpretation of CBC data. Current Interpretive Data was last revised on 2017. Lymphocyte pct 11.1 % [facility] Comment: Interpretive Data Percent cell count reference ranges are not reported, since discordance with absolute values may lead to misinterpretation of CBC data. Current Interpretive Data was last revised on 2017. Monocyte pct 5.3 % [facility] Comment: Interpretive Data Percent cell count reference ranges are not reported, since discordance with absolute values may lead to misinterpretation of CBC data. Current Interpretive Data was last revised on 2017. Eosinophil pct 0.8 % [facility] Comment: Interpretive Data Percent cell count reference ranges are not reported, since discordance with absolute values may lead to misinterpretation of CBC data. Current Interpretive Data was last revised on 2017. Basophil pct 0.2 % J[facility] Comment: Interpretive Data Percent cell count reference ranges are not reported, since discordance with absolute values may lead to misinterpretation of CBC data. Current Interpretive Data was last revised on 2017. Blood 03/31/2024 7:41 AM RADIO FREQUENCY ENGINEER 03/31/2024 7:54 AM RADIO FREQUENCY ENGINEER us Ricki Mills MD LAB BLOOD ORDERABLES Final Result [facility] [address] [facility] Department [place] [address] * (ABNORMAL) CBC with auto differential (03/31/2024 7:41 AM RADIO FREQUENCY ENGINEER) WBC 6.2 3.8 - 9.9 K/cumm Hgb 8.0(L) 13.0 - 17.5 g/dL [facility] Hct 24.9(L) 38.9 - 50.3 % [facility] Plt 168 150 - 400 K/cumm [facility] MPV 9.0(L) 9.1 - 12.3 fL [facility] RBC 3.00(L) 4.30 - 5.80 M/cumm [facility] MCV 83.0 81.3 - 96.4 fL [facility] MCH 26.7(L) 27.1 - 33.3 pg [facility] MCHC 32.1(L) 32.3 - 35.7 g/dL [facility] RDW CV 16.1(H) 11.1 - 14.9 % [facility] RDW SD 48.8(H) 35.7 - 48.1 fL [facility] NRBC abs 0.00 0.00 - 0.01 K/cumm [facility] Blood 03/31/2024 7:41 AM RADIO FREQUENCY ENGINEER 03/31/2024 7:54 AM RADIO FREQUENCY ENGINEER Ricki Mills MD LAB BLOOD ORDERABLES Final Result Performing Organization Address [facility] Co de Phone Number [address] [employer] [place] [address] * (ABNORMAL) aPTT (03/31/2024 7:41 AM RADIO FREQUENCY ENGINEER) aPTT 40(H) 22 - 37 sec Comment: Ref Range High Interpretive data aPTT test has not been evaluated for monitoring heparin therapy. The anti-Xa is the preferred test. Current interpretive data was last revised on 2019. Blood 03/31/2024 7:41 AM RADIO FREQUENCY ENGINEER 03/31/2024 7:54 AM RADIO FREQUENCY ENGINEER Tiki Birch NP LAB BLOOD ORDERABLES Nita l Result Performing Organization Address City/[facility] Co de Phone Number [address] [employer] [place] [address] * (ABNORMAL) Protime-INR (03/31/2024 7:41 AM RADIO FREQUENCY ENGINEER) PT 16.4(H) 12.0 - 14.6 sec Comment:Ref Range High INR 1.3(H) 0.9 - 1.2 [facility] Comment: Ref Range High Interpretive data Oral anticoagulant therapeutic ranges: Venous thromboembolism prophylaxis or treatment: 2.0-3.0 CARDIOLOGY Standard range: 2.0-3.0 High-intensity range: 2.5-3.5 Refer to indication-specific guidelines for appropriate target ranges for prosthetic heart valve replacement. Current interpretive data was last revised on 2019. Blood 03/31/2024 7:41 AM RADIO FREQUENCY ENGINEER 03/31/2024 7:54 AM RADIO FREQUENCY ENGINEER Tiki Birch DYNAMOMETER REPAIRER LAB BLOOD ORDERABLES Nita l Result Performing Organization Address City/[facility] Co de Phone Number [facility] [address] [facility] Department [place] [address] * (ABNORMAL) CBC without differential (03/31/2024 7:41 AM RADIO FREQUENCY ENGINEER) Pathologist [facility] WBC 6.5 3.8 - 9.9 K/cumm Hgb 8.4(L) 13.0 - 17.5 g/dL [facility] Hct 25.8(L) 38.9 - 50.3 % [facility] Plt 181 150 - 400 K/cumm [facility] MPV 9.7 9.1 - 12.3 fL [facility] RBC 3.13(L) 4.30 - 5.80 M/cumm [facility] MCV 82.4 81.3 - 96.4 fL [facility] MCH 26.8(L) 27.1 - 33.3 pg [facility] MCHC 32.6 32.3 - 35.7 g/dL [facility] RDW CV 16.2(H) 11.1 - 14.9 % [facility] RDW SD 48.9(H) 35.7 - 48.1 fL [facility] NRBC abs 0.00 0.00 - 0.01 K/cumm [facility] Blood 03/31/2024 7:41 AM RADIO FREQUENCY ENGINEER 03/31/2024 7:54 AM RADIO FREQUENCY ENGINEER us Tiki Birch DYNAMOMETER REPAIRER LAB BLOOD ORDERABLES Nita l Result Performing Organization Address City/[facility] de Phone Number [facility] [address] [facility] [place] [address] * Vancomycin level random (03/31/2024 7:41 AM RADIO FREQUENCY ENGINEER) [facility] Vancomycin random 17.1 mcg/mL Comment: Interpretive Data No reference ranges have been established for random drug levels. Current Interpretive Data was last revised on 2020. Blood 03/31/2024 7:41 AM RADIO FREQUENCY ENGINEER 03/31/2024 7:54 AM RADIO FREQUENCY ENGINEER Inocencia Fair MD LAB BLOOD ORDERABLES F inal Result Performing Organization Address [facility]/[place] de Phone Number [address] [address] * (ABNORMAL) Basic metabolic panel (03/31/2024 7:41 AM RADIO FREQUENCY ENGINEER) [facility] Sodium 130(L) 135 - 145 mmol/L Potassium, pl 5.0(H) 3.3 - 4.9 mmol/L [facility] Chloride 90(L) 97 - 110 mmol/L [facility] CO2 26 22 - 32 mmol/L [facility] Anion gap 14 2 - 15 mmol/L [facility] BUN 39(H) 6 - 25 mg/dL [facility] Creatinine 7.60(H) 0.80 - 1.30 mg/dL [facility] Glucose 145 70 - 199 mg/dL [facility] Comment: Interpretive Data Fasting glucose >/= 126 mg/dl is diagnostic for diabetes. Fasting is defined as no caloric intake for at least 8 hours. Fasting glucose between 100 mg/dl to 125 mg/dl is diagnostic of prediabetes. In a patient with classic symptoms of hyperglycemia or hyperglycemic crisis, a random glucose >/= 200 mg/dl is diagnostic for diabetes. In the absence of unequivocal hyperglycemia, results should be confirmed by repeat testing. The classification and Diagnosis of Diabetes Diabetes Care 202; 46: S19-S40. Current interpretive data was last revised 2022. Calcium 8.8 8.5 - 10.3 mg/dL [facility] Blood 03/31/2024 7:41 AM RADIO FREQUENCY ENGINEER 03/31/2024 7:54 AM RADIO FREQUENCY ENGINEER Ricki Mills MD LAB BLOOD ORDERABLES Final Result Performing Organization Address [facility]/[place] de Phone Number JESSIE [address] [employer] [place] [address] * (ABNORMAL) eGFR (03/30/2024 7:07 AM RADIO FREQUENCY ENGINEER) Pathologist [facility] eGFR 11(L) >=60 mL/min/1. 73 m2 Comment: Interpretive Data Reference Interval Normal >/= 90 mL/min/1.73m2 Mildly decreased* 60 - 89 mL/min/1.73m2 Mildly to moderately decreased 45 - 59 mL/min/1.73m2 Moderately to severely decreased 30 - 44 mL/min/1.73m2 Severely decreased 15 - 29 mL/min/1.73m2 Kidney Failure < 15 mL/min/1.73m2 *Relative to young adult level Estimated glomerular filtration rate is determined by the 2020 CKD-EPI equation recommended by the National Kidney Foundation (A Unifying Approach to GFR Estimation: Recommendations of the NKF-ASK Task Force on Reassessing the Inclusion of Race in Diagnosing Kidney Disease, JASN 2020). The CKD-EPI equation should not be used for patients with unstable renal function and has not been validated in children and those over 70. Current interpretive data was last reviewed 2021. Blood 03/30/2024 7:07 AM RADIO FREQUENCY ENGINEER 03/30/2024 7:26 AM RADIO FREQUENCY ENGINEER Ricki Mills MD LAB BLOOD ORDERABLES Final Result Performing Organization Address [facility]/ZIP Co de Phone Number JESSIE [address] [employer] [place] [address] * Differential, auto (03/30/2024 7:07 AM RADIO FREQUENCY ENGINEER) [facility] Neutrophil abs 3.3 1.5 - 6.5 K/cumm Imm gran abs 0.1 0.0 - 0.1 K/cumm [facility] Lymphocyte abs 0.9 0.8 - 3.3 K/cumm [facility] Monocyte abs 0.3 0.2 - 0.8 K/cumm [facility] Eosinophil abs 0.1 0.0 - 0.5 K/cumm [facility] Basophil abs 0.0 0.0 - 0.1 K/cumm [facility] Neutrophil pct 70.6 % [facility] Comment: Interpretive Data Percent cell count reference ranges are not reported, since discordance with absolute values may lead to misinterpretation of CBC data. Current Interpretive Data was last revised on 2017. Imm gran pct 1.1 % [facility] Comment: Interpretive Data Percent cell count reference ranges are not reported, since discordance with absolute values may lead to misinterpretation of CBC data. Current Interpretive Data was last revised on 2017. Lymphocyte pct 19.1 % [facility] Comment: Interpretive Data Percent cell count reference ranges are not reported, since discordance with absolute values may lead to misinterpretation of CBC data. Current Interpretive Data was last revised on 2017. Monocyte pct 7.3 % [facility] Comment: Interpretive Data Percent cell count reference ranges are not reported, since discordance with absolute values may lead to misinterpretation of CBC data. Current Interpretive Data was last revised on 2017. Eosinophil pct 1.5 % [facility] Comment: Interpretive Data Percent cell count reference ranges are not reported, since discordance with absolute values may lead to misinterpretation of CBC data. Current Interpretive Data was last revised on 2017. Basophil pct 0.4 % [facility] Comment: Interpretive Data Percent cell count reference ranges are not reported, since discordance with absolute values may lead to misinterpretation of CBC data. Current Interpretive Data was last revised on 2017. Blood 03/30/2024 7:07 AM RADIO FREQUENCY ENGINEER 03/30/2024 7:25 AM RADIO FREQUENCY ENGINEER us Ricki Mills MD LAB BLOOD ORDERABLES Final Result JESSIE [facility]S [address] [facility] Department [place] [address] * (ABNORMAL) CBC with auto differential (03/30/2024 7:07 AM RADIO FREQUENCY ENGINEER) [facility] WBC 4.7 3.8 - 9.9 K/cumm Hgb 8.8(L) 13.0 - 17.5 g/dL [facility] Hct 27.5(L) 38.9 - 50.3 % [facility] Plt 183 150 - 400 K/cumm [facility] MPV 9.2 9.1 - 12.3 fL [facility] RBC 3.31(L) 4.30 - 5.80 M/cumm [facility] MCV 83.1 81.3 - 96.4 fL [facility] MCH 26.6(L) 27.1 - 33.3 pg [facility] MCHC 32.0(L) 32.3 - 35.7 g/dL [facility] RDW CV 16.3(H) 11.1 - 14.9 % [facility] RDW SD 49.2(H) 35.7 - 48.1 fL [facility] NRBC abs 0.00 0.00 - 0.01 K/cumm [facility] Blood 03/30/2024 7:07 AM RADIO FREQUENCY ENGINEER 03/30/2024 7:25 AM RADIO FREQUENCY ENGINEER us Ricki Mills MD LAB BLOOD ORDERABLES Final Result Performing Organization Address [facility]/ZIP Co de Phone Number [address] [place] [address] * (ABNORMAL) Prealbumin (03/30/2024 7:07 AM RADIO FREQUENCY ENGINEER) [facility] Prealbumin 13.0(L) 20.0 - 40.0 mg/dL Blood 03/30/2024 7:07 AM RADIO FREQUENCY ENGINEER 03/30/2024 7:26 AM RADIO FREQUENCY ENGINEER us Inocencia Fair MD LAB BLOOD ORDERABLES F inal Result Performing Organization Address City/[facility]/ZIP Co de Phone Number [address] [employer] [place] [address] * (ABNORMAL) Albumin (03/30/2024 7:07 AM RADIO FREQUENCY ENGINEER) Albumin 3.4(L) 3.5 - 5.0 g/dL Blood 03/30/2024 7:07 AM RADIO FREQUENCY ENGINEER 03/30/2024 7:26 AM RADIO FREQUENCY ENGINEER Inocencia Fair MD LAB BLOOD ORDERABLES F inal Result [address] [employer] [place] [address] * (ABNORMAL) Basic metabolic panel (03/30/2024 7:07 AM RADIO FREQUENCY ENGINEER) [facility] Sodium 136 135 - 145 mmol/L Potassium, pl 4.4 3.3 - 4.9 mmol/L [facility] Chloride 95(L) 97 - 110 mmol/L [facility] CO2 30 22 - 32 mmol/L [facility] Anion gap 11 2 - 15 mmol/L [facility] BUN 28(H) 6 - 25 mg/dL [facility] Creatinine 6.04(H) 0.80 - 1.30 mg/dL [facility] Glucose 93 70 - 199 mg/dL [facility] Comment: Interpretive Data Fasting glucose >/= 126 mg/dl is diagnostic for diabetes. Fasting is defined as no caloric intake for at least 8 hours. Fasting glucose between 100 mg/dl to 125 mg/dl is diagnostic of prediabetes. In a patient with classic symptoms of hyperglycemia or hyperglycemic crisis, a random glucose >/= 200 mg/dl is diagnostic for diabetes. In the absence of unequivocal hyperglycemia, results should be confirmed by repeat testing. The classification and Diagnosis of Diabetes Diabetes Care 2021; 46: S19-S40. Current interpretive data was last revised 2022. Calcium 8.8 8.5 - 10.3 mg/dL [facility] Blood 03/30/2024 7:07 AM RADIO FREQUENCY ENGINEER 03/30/2024 7:26 AM RADIO FREQUENCY ENGINEER Ricki Mills MD LAB BLOOD ORDERABLES Final Result [address] [employer] [place] [address] * Transfuse RBC (03/30/2024 12:50 AM RADIO FREQUENCY ENGINEER) Blood Inocencia Fair MD BLOOD TRANSFUSION ORDE RABLES Final Result Performing Organization Address [facility] Co de Phone Number [address] [employer] [place] [address] * Prepare RBC: 1 Units (03/29/2024 4:28 PM RADIO FREQUENCY ENGINEER) Units requested 1 Units requested Ready JESSIE Unit Number [id number] Product code [id number] [facility] Blood Expiration Date [facility] Product Blood Type (for scanning) 9500 [facility] Product Blood Type ONEG [facility] Dispense Status DISPENSED [facility] Blood 03/29/2024 4:28 PM RADIO FREQUENCY ENGINEER 03/29/2024 4:28 PM RADIO FREQUENCY ENGINEER Inocencia Fair MD BLOOD BANK PRODUCT ORD ERABLES Final Result Performing Organization Address [facility]/[place] de Phone Number [address] [employer] [place] [address] * ABO/Rh (03/29/2024 3:47 PM RADIO FREQUENCY ENGINEER) Pathologist [facility] ABO/Rh O Negative Blood 03/29/2024 3:47 PM RADIO FREQUENCY ENGINEER 03/29/2024 3:53 PM RADIO FREQUENCY ENGINEER Narrative [facility] - 03/29/2024 4:28 PM RADIO FREQUENCY ENGINEER Has the patient had Daratumumab or Isatuximab in the past 6 months?->Unknown Inocencia Fair MD LAB BLOOD BANK TEST OR DERABLES Final Result Performing Organization Address City/[facility] Co de Phone Number [address] [employer] [place] [address] * Crossmatch (03/29/2024 3:47 PM RADIO FREQUENCY ENGINEER) Pathologist [facility] Crossmatch Compatible [facility] Unit number for crossmatch [id number] [facility] Blood 03/29/2024 3:47 PM RADIO FREQUENCY ENGINEER 03/29/2024 3:53 PM RADIO FREQUENCY ENGINEER Result [facility] Inocencia Fair MD LAB BLOOD BANK TEST OR DERABLES Final Result Performing Organization Address City/[facility]/ZIP Co de Phone Number [address] [address] * Antibody screen (03/29/2024 3:47 PM RADIO FREQUENCY ENGINEER) Fermin, indirect, Gel Interpretation Negative ABSC Blood 03/29/2024 3:47 PM RADIO FREQUENCY ENGINEER 03/29/2024 3:53 PM RADIO FREQUENCY ENGINEER Narrative [facility] - 03/29/2024 4:28 PM RADIO FREQUENCY ENGINEER Has the patient had Daratumumab or Isatuximab in the past 6 months?->Unknown Inocencia Fair MD LAB BLOOD BANK TEST OR DERABLES Final Result Performing Organization Address [facility] Co de Phone Number [address] [address] * (ABNORMAL) eGFR (03/29/2024 7:40 AM RADIO FREQUENCY ENGINEER) Pathologist [facility] eGFR 9(L) >=60 mL/min/1. 73 m2 Comment: Interpretive Data Reference Interval Normal >/= 90 mL/min/1.73m2 Mildly decreased* 60 - 89 mL/min/1.73m2 Mildly to moderately decreased 45 - 59 mL/min/1.73m2 Moderately to severely decreased 30 - 44 mL/min/1.73m2 Severely decreased 15 - 29 mL/min/1.73m2 Kidney Failure < 15 mL/min/1.73m2 *Relative to young adult level Estimated glomerular filtration rate is determined by the 2020 CKD-EPI equation recommended by the National Kidney Foundation (A Unifying Approach to GFR Estimation: Recommendations of the NKF-ASK Task Force on Reassessing the Inclusion of Race in Diagnosing Kidney Disease, JASN 2020). The CKD-EPI equation should not be used for patients with unstable renal function and has not been validated in children and those over 70. Current interpretive data was last reviewed 2021. Blood 03/29/2024 7:40 AM RADIO FREQUENCY ENGINEER 03/29/2024 7:48 AM RADIO FREQUENCY ENGINEER us Ricki Mills MD LAB BLOOD ORDERABLES Final Result [facility] [address] [facility] Department [place] [address] * Differential, auto (03/29/2024 7:40 AM RADIO FREQUENCY ENGINEER) Pathologist [facility] Neutrophil abs 3.3 1.5 - 6.5 K/cumm Imm gran abs 0.1 0.0 - 0.1 K/cumm [facility] Lymphocyte abs 0.8 0.8 - 3.3 K/cumm [facility] Monocyte abs 0.4 0.2 - 0.8 K/cumm [facility] Eosinophil abs 0.1 0.0 - 0.5 K/cumm [facility] Basophil abs 0.0 0.0 - 0.1 K/cumm [facility] Neutrophil pct 71.6 % [facility] Comment: Interpretive Data Percent cell count reference ranges are not reported, since discordance with absolute values may lead to misinterpretation of CBC data. Current Interpretive Data was last revised on 2017. Imm gran pct 1.1 % [facility] Comment: Interpretive Data Percent cell count reference ranges are not reported, since discordance with absolute values may lead to misinterpretation of CBC data. Current Interpretive Data was last revised on 2017. Lymphocyte pct 18.0 % [facility] Comment: Interpretive Data Percent cell count reference ranges are not reported, since discordance with absolute values may lead to misinterpretation of CBC data. Current Interpretive Data was last revised on 2017. Monocyte pct 7.6 % [facility] Comment: Interpretive Data Percent cell count reference ranges are not reported, since discordance with absolute values may lead to misinterpretation of CBC data. Current Interpretive Data was last revised on 2017. Eosinophil pct 1.5 % [facility] Comment: Interpretive Data Percent cell count reference ranges are not reported, since discordance with absolute values may lead to misinterpretation of CBC data. Current Interpretive Data was last revised on 2017. Basophil pct 0.2 % [facility] Comment: Interpretive Data Percent cell count reference ranges are not reported, since discordance with absolute values may lead to misinterpretation of CBC data. Current Interpretive Data was last revised on 2017. Blood 03/29/2024 7:40 AM RADIO FREQUENCY ENGINEER 03/29/2024 7:48 AM RADIO FREQUENCY ENGINEER us Ricki Mills MD LAB BLOOD ORDERABLES Final Result Performing Organization Address City/[facility]/ZIP Co de Phone Number JESSIE [address] [facility] [place] [address] * (ABNORMAL) CBC with auto differential (03/29/2024 7:40 AM RADIO FREQUENCY ENGINEER) WBC 4.6 3.8 - 9.9 K/cumm Hgb 7.6(L) 13.0 - 17.5 g/dL [facility] Hct 23.8(L) 38.9 - 50.3 % [facility] Plt 183 150 - 400 K/cumm [facility] MPV 9.4 9.1 - 12.3 fL [facility] RBC 2.87(L) 4.30 - 5.80 M/cumm [facility] MCV 82.9 81.3 - 96.4 fL [facility] MCH 26.5(L) 27.1 - 33.3 pg [facility] MCHC 31.9(L) 32.3 - 35.7 g/dL [facility] RDW CV 16.1(H) 11.1 - 14.9 % [facility] RDW SD 49.2(H) 35.7 - 48.1 fL [facility] NRBC abs 0.00 0.00 - 0.01 K/cumm [facility] Blood 03/29/2024 7:40 AM RADIO FREQUENCY ENGINEER 03/29/2024 7:48 AM RADIO FREQUENCY ENGINEER Ricki Mills MD LAB BLOOD ORDERABLES Final Result Performing Organization Address City/[facility]/ZIP Co de Phone Number [place] [address] [facility] [place] [address] * Vancomycin level random (03/29/2024 7:40 AM RADIO FREQUENCY ENGINEER) [facility] Vancomycin random 14.7 mcg/mL Comment: Interpretive Data No reference ranges have been established for random drug levels. Current Interpretive Data was last revised on 2020. Blood 03/29/2024 7:40 AM RADIO FREQUENCY ENGINEER 03/29/2024 7:48 AM RADIO FREQUENCY ENGINEER us Luis Nieto MD LAB BLOOD ORDERABLES Final R esult [address] [address] * (ABNORMAL) Basic metabolic panel (03/29/2024 7:40 AM RADIO FREQUENCY ENGINEER) [facility] Sodium 133(L) 135 - 145 mmol/L Potassium, pl 4.7 3.3 - 4.9 mmol/L [facility] Chloride 92(L) 97 - 110 mmol/L [facility] CO2 28 22 - 32 mmol/L [facility] Anion gap 13 2 - 15 mmol/L [facility] BUN 36(H) 6 - 25 mg/dL [facility] Creatinine 7.25(H) 0.80 - 1.30 mg/dL [facility] Glucose 101 70 - 199 mg/dL [facility] Comment: Interpretive Data Fasting glucose >/= 126 mg/dl is diagnostic for diabetes. Fasting is defined as no caloric intake for at least 8 hours. Fasting glucose between 100 mg/dl to 125 mg/dl is diagnostic of prediabetes. In a patient with classic symptoms of hyperglycemia or hyperglycemic crisis, a random glucose >/= 200 mg/dl is diagnostic for diabetes. In the absence of unequivocal hyperglycemia, results should be confirmed by repeat testing. The classification and Diagnosis of Diabetes Diabetes Care 202; 46: S19-S40. Current interpretive data was last revised 2022. Calcium 8.4(L) 8.5 - 10.3 mg/dL [facility] Blood 03/29/2024 7:40 AM RADIO FREQUENCY ENGINEER 03/29/2024 7:48 AM RADIO FREQUENCY ENGINEER Ricki Mills MD LAB BLOOD ORDERABLES Final Result Performing Organization Address [facility]/[place] de Phone Number JESSIE [address] [employer] [place] [address] * (ABNORMAL) eGFR (03/28/2024 7:00 AM RADIO FREQUENCY ENGINEER) [facility] eGFR 7(L) >=60 mL/min/1. 73 m2 Comment: Interpretive Data Reference Interval Normal >/= 90 mL/min/1.73m2 Mildly decreased* 60 - 89 mL/min/1.73m2 Mildly to moderately decreased 45 - 59 mL/min/1.73m2 Moderately to severely decreased 30 - 44 mL/min/1.73m2 Severely decreased 15 - 29 mL/min/1.73m2 Kidney Failure < 15 mL/min/1.73m2 *Relative to young adult level Estimated glomerular filtration rate is determined by the 2020 CKD-EPI equation recommended by the National Kidney Foundation (A Unifying Approach to GFR Estimation: Recommendations of the NKF-ASK Task Force on Reassessing the Inclusion of Race in Diagnosing Kidney Disease, JASN 2020). The CKD-EPI equation should not be used for patients with unstable renal function and has not been validated in children and those over 70. Current interpretive data was last reviewed 2021. Blood 03/28/2024 7:00 AM RADIO FREQUENCY ENGINEER 03/28/2024 7:10 AM RADIO FREQUENCY ENGINEER Ricki Mills MD LAB BLOOD ORDERABLES Final Result Performing Organization Address City/[facility] Co de Phone Number JESSIE [address] [employer] [place] [address] * Differential, auto (03/28/2024 7:00 AM RADIO FREQUENCY ENGINEER) [facility] Neutrophil abs 3.5 1.5 - 6.5 K/cumm Imm gran abs 0.0 0.0 - 0.1 K/cumm [facility] Lymphocyte abs 0.8 0.8 - 3.3 K/cumm [facility] Monocyte abs 0.4 0.2 - 0.8 K/cumm [facility] Eosinophil abs 0.1 0.0 - 0.5 K/cumm [facility] Basophil abs 0.0 0.0 - 0.1 K/cumm [facility] Neutrophil pct 72.5 % [facility] Comment: Interpretive Data Percent cell count reference ranges are not reported, since discordance with absolute values may lead to misinterpretation of CBC data. Current Interpretive Data was last revised on 2017. Imm gran pct 0.6 % [facility] Comment: Interpretive Data Percent cell count reference ranges are not reported, since discordance with absolute values may lead to misinterpretation of CBC data. Current Interpretive Data was last revised on 2017. Lymphocyte pct 15.7 % [facility] Comment: Interpretive Data Percent cell count reference ranges are not reported, since discordance with absolute values may lead to misinterpretation of CBC data. Current Interpretive Data was last revised on 2017. Monocyte pct 9.1 % [facility] Comment: Interpretive Data Percent cell count reference ranges are not reported, since discordance with absolute values may lead to misinterpretation of CBC data. Current Interpretive Data was last revised on 2017. Eosinophil pct 2.1 % [facility] Comment: Interpretive Data Percent cell count reference ranges are not reported, since discordance with absolute values may lead to misinterpretation of CBC data. Current Interpretive Data was last revised on 2017. Basophil pct 0.0 % [facility] Comment: Interpretive Data Percent cell count reference ranges are not reported, since discordance with absolute values may lead to misinterpretation of CBC data. Current Interpretive Data was last revised on 2017. Blood 03/28/2024 7:00 AM RADIO FREQUENCY ENGINEER 03/28/2024 7:10 AM RADIO FREQUENCY ENGINEER us Ricki Mills MD LAB BLOOD ORDERABLES Final Result JESSIE HILLS [address] [facility] Department [place] [address] * (ABNORMAL) CBC with auto differential (03/28/2024 7:00 AM RADIO FREQUENCY ENGINEER) WBC 4.9 3.8 - 9.9 K/cumm Hgb 7.7(L) 13.0 - 17.5 g/dL [facility] Hct 23.9(L) 38.9 - 50.3 % [facility] Plt 181 150 - 400 K/cumm [facility] MPV 9.3 9.1 - 12.3 fL [facility] RBC 2.93(L) 4.30 - 5.80 M/cumm [facility] MCV 81.6 81.3 - 96.4 fL [facility] MCH 26.3(L) 27.1 - 33.3 pg [facility] MCHC 32.2(L) 32.3 - 35.7 g/dL [facility] RDW CV 16.1(H) 11.1 - 14.9 % [facility] RDW SD 48.2(H) 35.7 - 48.1 fL [facility] NRBC abs 0.00 0.00 - 0.01 K/cumm [facility] Blood 03/28/2024 7:00 AM RADIO FREQUENCY ENGINEER 03/28/2024 7:10 AM RADIO FREQUENCY ENGINEER us Ricki Mills MD LAB BLOOD ORDERABLES Final Result Performing Organization Address [facility] Co de Phone Number [address] [place] [address] * Vancomycin level random (03/28/2024 7:00 AM RADIO FREQUENCY ENGINEER) [facility] Vancomycin random 16.3 mcg/mL Comment: Interpretive Data No reference ranges have been established for random drug levels. Current Interpretive Data was last revised on 2020. Blood 03/28/2024 7:00 AM RADIO FREQUENCY ENGINEER 03/28/2024 7:10 AM RADIO FREQUENCY ENGINEER Narrative [facility] - 03/28/2024 7:46 AM RADIO FREQUENCY ENGINEER Prior to HD Luis Nieto MD LAB BLOOD ORDERABLES Final R esult Performing Organization Address City/[facility] Co de Phone Number [address] [place] [address] * (ABNORMAL) Basic metabolic panel (03/28/2024 7:00 AM RADIO FREQUENCY ENGINEER) [facility] Sodium 131(L) 135 - 145 mmol/L Potassium, pl 4.9 3.3 - 4.9 mmol/L [facility] Chloride 89(L) 97 - 110 mmol/L [facility] CO2 27 22 - 32 mmol/L [facility] Anion gap 15 2 - 15 mmol/L [facility] BUN 50(H) 6 - 25 mg/dL [facility] Creatinine 9.17(H) 0.80 - 1.30 mg/dL [facility] Glucose 187 70 - 199 mg/dL [facility] Comment: Interpretive Data Fasting glucose >/= 126 mg/dl is diagnostic for diabetes. Fasting is defined as no caloric intake for at least 8 hours. Fasting glucose between 100 mg/dl to 125 mg/dl is diagnostic of prediabetes. In a patient with classic symptoms of hyperglycemia or hyperglycemic crisis, a random glucose >/= 200 mg/dl is diagnostic for diabetes. In the absence of unequivocal hyperglycemia, results should be confirmed by repeat testing. The classification and Diagnosis of Diabetes Diabetes Care 2021; 46: S19-S40. Current interpretive data was last revised 2022. Calcium 8.0(L) 8.5 - 10.3 mg/dL [facility] Blood 03/28/2024 7:00 AM RADIO FREQUENCY ENGINEER 03/28/2024 7:10 AM RADIO FREQUENCY ENGINEER us Ricki Mills MD LAB BLOOD ORDERABLES Final Result Performing Organization Address City/[facility]/ZIP Co de Phone Number [address] [place] [address] * Transfuse RBC (03/27/2024 6:48 PM RADIO FREQUENCY ENGINEER) Blood us Inocencia Fair MD BLOOD TRANSFUSION [facility] Final Result Performing Organization Address [facility]/ZIP Co de Phone Number [address] [place] [address] * Prepare RBC: 1 Units (03/27/2024 1:26 PM RADIO FREQUENCY ENGINEER) Units requested 1 Units requested Ready JESSIE Unit Number [id number] Product code [id number] JESSIE Blood Expiration Date [id number] [facility] Blood Type (for scanning) 9500 [facility] Product Blood Type ONEG [facility] Dispense Status DISPENSED [facility] Blood 03/27/2024 1:26 PM RADIO FREQUENCY ENGINEER 03/27/2024 1:26 PM RADIO FREQUENCY ENGINEER us Inocencia Fair MD BLOOD BANK PRODUCT ORD ERABLES Final Result Performing Organization Address City/[facility]/ZIP Co de Phone Number SATISH[address] Department of [employer] [place] [address] * (ABNORMAL) eGFR (03/27/2024 12:18 PM RADIO FREQUENCY ENGINEER) eGFR 8(L) >=60 mL/min/1. 73 m2 Comment: Interpretive Data Reference Interval Normal >/= 90 mL/min/1.73m2 Mildly decreased* 60 - 89 mL/min/1.73m2 Mildly to moderately decreased 45 - 59 mL/min/1.73m2 Moderately to severely decreased 30 - 44 mL/min/1.73m2 Severely decreased 15 - 29 mL/min/1.73m2 Kidney Failure < 15 mL/min/1.73m2 *Relative to young adult level Estimated glomerular filtration rate is determined by the 2020 CKD-EPI equation recommended by the National Kidney Foundation (A Unifying Approach to GFR Estimation: Recommendations of the NKF-ASK Task Force on Reassessing the Inclusion of Race in Diagnosing Kidney Disease, JASN 2020). The CKD-EPI equation should not be used for patients with unstable renal function and has not been validated in children and those over 70. Current interpretive data was last reviewed 2021. Blood 03/27/2024 12:1 8 PM RADIO FREQUENCY ENGINEER 03/27/2024 12:25 PM RADIO FREQUENCY ENGINEER us Ricki Mills MD LAB BLOOD ORDERABLES Final Result [address] Department [place] [address] * Differential, auto (03/27/2024 12:18 PM RADIO FREQUENCY ENGINEER) Neutrophil abs 4.3 1.5 - 6.5 K/cumm Imm gran abs 0.0 0.0 - 0.1 K/cumm [facility] Lymphocyte abs 0.8 0.8 - 3.3 K/cumm [facility] Monocyte abs 0.4 0.2 - 0.8 K/cumm [facility] Eosinophil abs 0.1 0.0 - 0.5 K/cumm [facility] Basophil abs 0.0 0.0 - 0.1 K/cumm [facility] Neutrophil pct 76.6 % [facility] Comment: Interpretive Data Percent cell count reference ranges are not reported, since discordance with absolute values may lead to misinterpretation of CBC data. Current Interpretive Data was last revised on 2017. Imm gran pct 0.4 % [facility] Comment: Interpretive Data Percent cell count reference ranges are not reported, since discordance with absolute values may lead to misinterpretation of CBC data. Current Interpretive Data was last revised on 2017. Lymphocyte pct 14.2 % [facility] Comment: Interpretive Data Percent cell count reference ranges are not reported, since discordance with absolute values may lead to misinterpretation of CBC data. Current Interpretive Data was last revised on 2017. Monocyte pct 7.2 % [facility] Comment: Interpretive Data Percent cell count reference ranges are not reported, since discordance with absolute values may lead to misinterpretation of CBC data. Current Interpretive Data was last revised on 2017. Eosinophil pct 1.4 % [facility] Comment: Interpretive Data Percent cell count reference ranges are not reported, since discordance with absolute values may lead to misinterpretation of CBC data. Current Interpretive Data was last revised on 2017. Basophil pct 0.2 % [facility] Comment: Interpretive Data Percent cell count reference ranges are not reported, since discordance with absolute values may lead to misinterpretation of CBC data. Current Interpretive Data was last revised on 2017. Blood 03/27/2024 12:1 8 PM RADIO FREQUENCY ENGINEER 03/27/2024 12:25 PM RADIO FREQUENCY ENGINEER Ricki Mills MD LAB BLOOD ORDERABLES Final Result Performing Organization Address City/[facility] Co de Phone Number JESSIE HILLS [address] [place] [phone] * (ABNORMAL) CBC with auto differential (03/27/2024 12:18 PM RADIO FREQUENCY ENGINEER) WBC 5.6 3.8 - 9.9 K/cumm Hgb 7.3(L) 13.0 - 17.5 g/dL [facility] Hct 23.1(L) 38.9 - 50.3 % [facility] Plt 191 150 - 400 K/cumm [facility] MPV 9.2 9.1 - 12.3 fL [facility] RBC 2.82(L) 4.30 - 5.80 M/cumm [facility] MCV 81.9 81.3 - 96.4 fL [facility] MCH 25.9(L) 27.1 - 33.3 pg [facility] MCHC 31.6(L) 32.3 - 35.7 g/dL [facility] RDW CV 16.6(H) 11.1 - 14.9 % [facility] RDW SD 49.9(H) 35.7 - 48.1 fL [facility] NRBC abs 0.00 0.00 - 0.01 K/cumm [facility] Blood 03/27/2024 12:1 8 PM RADIO FREQUENCY ENGINEER 03/27/2024 12:25 PM RADIO FREQUENCY ENGINEER Ricki Mills MD LAB BLOOD ORDERABLES Final Result Performing Organization Address City/[facility]/ZIP Co de Phone Number JESSIE [address] [employer] [place] [address] * Blood culture Blood (03/27/2024 12:18 PM RADIO FREQUENCY ENGINEER) Report Final Report: No growth Comment:Testing performed by : [facility], [address] [facility], [place]., [address] Blood 03/27/2024 12:1 8 PM RADIO FREQUENCY ENGINEER 03/27/2024 3:04 PM RADIO FREQUENCY ENGINEER Narrative [facility] - 03/31/2024 4:00 PM RADIO FREQUENCY ENGINEER From a different site than #1. Collection->Peripheral 1. Blood cultures are incubated for 4 days on a continuously monitored blood culture system. The first report of a negative culture is issued within 24 hours of receipt of the specimen in the laboratory. 2. Positive culture results are reported as soon as they are detected. 3. The most important factor for detection of microbes in the setting of bloodstream infection is the volume of blood submitted for culture. Failure to collect an optimal blood volume can result in false negative blood cultures. 4. For pediatric patients, the recommended blood volume to collect follows a weight based strategy. See the electronic test catalog for collection instructions. 5. For positive blood cultures, a rapid molecular test may be performed for organism identification using the tyler ePlex blood culture identification panel for gram positive (BCID-GP) and gram negative (BCID-GN) organisms. This nucleic acid amplification test detects microbial DNA in positive blood culture broth. This assay has been cleared by the [place] Food and Drug Administration and its performance characteristics have been verified by the [facility]. For questions about this culture, contact the Microbiology Laboratory at [phone]. Interpretive data was last revised on 23. us Luis Nieto MD LAB MICROBIOLOGY - GENERAL O RDERABLES Final Result [place] [address] [facility] Department [place] [address] * (ABNORMAL) Basic metabolic panel (03/27/2024 12:18 PM RADIO FREQUENCY ENGINEER) [facility] Signature Sodium 131(L) 135 - 145 mmol/L Potassium, pl 4.6 3.3 - 4.9 mmol/L [facility] Chloride 90(L) 97 - 110 mmol/L [facility] CO2 28 22 - 32 mmol/L [facility] Anion gap 13 2 - 15 mmol/L [facility] BUN 42(H) 6 - 25 mg/dL [facility] Creatinine 7.55(H) 0.80 - 1.30 mg/dL [facility] Glucose 177 70 - 199 mg/dL [facility] Comment: Interpretive Data Fasting glucose >/= 126 mg/dl is diagnostic for diabetes. Fasting is defined as no caloric intake for at least 8 hours. Fasting glucose between 100 mg/dl to 125 mg/dl is diagnostic of prediabetes. In a patient with classic symptoms of hyperglycemia or hyperglycemic crisis, a random glucose >/= 200 mg/dl is diagnostic for diabetes. In the absence of unequivocal hyperglycemia, results should be confirmed by repeat testing. The classification and Diagnosis of Diabetes Diabetes Care 202; 46: S19-S40. Current interpretive data was last revised 2022. Calcium 8.4(L) 8.5 - 10.3 mg/dL JESSIE Blood 03/27/2024 12:1 8 PM RADIO FREQUENCY ENGINEER 03/27/2024 12:25 PM RADIO FREQUENCY ENGINEER us Ricki Mills MD LAB BLOOD ORDERABLES Final Result JESSIE [address] [facility] Department [place] [address] * Blood culture Blood (03/26/2024 11:23 AM RADIO FREQUENCY ENGINEER) Report Final Report: No growth Comment:Testing performed by : [facility], [address] [place] [address] Blood 03/26/2024 11:2 3 AM RADIO FREQUENCY ENGINEER 03/26/2024 1:31 PM RADIO FREQUENCY ENGINEER Narrative JESSIE - 03/30/2024 4:00 PM RADIO FREQUENCY ENGINEER Collection->Peripheral 1. Blood cultures are incubated for 4 days on a continuously monitored blood culture system. The first report of a negative culture is issued within 24 hours of receipt of the specimen in the laboratory. 2. Positive culture results are reported as soon as they are detected. 3. The most important factor for detection of microbes in the setting of bloodstream infection is the volume of blood submitted for culture. Failure to collect an optimal blood volume can result in false negative blood cultures. 4. For pediatric patients, the recommended blood volume to collect follows a weight based strategy. See the electronic test catalog for collection instructions. 5. For positive blood cultures, a rapid molecular test may be performed for organism identification using the tyler ePlex blood culture identification panel for gram positive (BCID-GP) and gram negative (BCID-GN) organisms. This nucleic acid amplification test detects microbial DNA in positive blood culture broth. This assay has been cleared by the [place] Food and Drug Administration and its performance characteristics have been verified by the [facility]. For questions about this culture, contact the Microbiology Laboratory at [phone]. Interpretive data was last revised on 23. us Luis Nieto MD LAB MICROBIOLOGY - GENERAL O RDERABLES Final Result JESSIE [employer] [facility] [place] [address] * (ABNORMAL) eGFR (03/26/2024 5:05 AM RADIO FREQUENCY ENGINEER) eGFR 7(L) >=60 mL/min/1. 73 m2 Comment: Interpretive Data Reference Interval Normal >/= 90 mL/min/1.73m2 Mildly decreased* 60 - 89 mL/min/1.73m2 Mildly to moderately decreased 45 - 59 mL/min/1.73m2 Moderately to severely decreased 30 - 44 mL/min/1.73m2 Severely decreased 15 - 29 mL/min/1.73m2 Kidney Failure < 15 mL/min/1.73m2 *Relative to young adult level Estimated glomerular filtration rate is determined by the 2020 CKD-EPI equation recommended by the National Kidney Foundation (A Unifying Approach to GFR Estimation: Recommendations of the NKF-ASK Task Force on Reassessing the Inclusion of Race in Diagnosing Kidney Disease, JASN 2020). The CKD-EPI equation should not be used for patients with unstable renal function and has not been validated in children and those over 70. Current interpretive data was last reviewed 2021. Blood 03/26/2024 5:05 AM RADIO FREQUENCY ENGINEER 03/26/2024 5:18 AM RADIO FREQUENCY ENGINEER us Ricki Mills MD LAB BLOOD ORDERABLES Final Result JSESIE [address] [facility] Department [place] [address] * Differential, auto (03/26/2024 5:05 AM RADIO FREQUENCY ENGINEER) Neutrophil abs 5.0 1.5 - 6.5 K/cumm Imm gran abs 0.0 0.0 - 0.1 K/cumm [facility] Lymphocyte abs 1.0 0.8 - 3.3 K/cumm [facility] Monocyte abs 0.6 0.2 - 0.8 K/cumm [facility] Eosinophil abs 0.0 0.0 - 0.5 K/cumm [facility] Basophil abs 0.0 0.0 - 0.1 K/cumm [facility] Neutrophil pct 74.7 % [facility] Comment: Interpretive Data Percent cell count reference ranges are not reported, since discordance with absolute values may lead to misinterpretation of CBC data. Current Interpretive Data was last revised on 2017. Imm gran pct 0.6 % [facility] Comment: Interpretive Data Percent cell count reference ranges are not reported, since discordance with absolute values may lead to misinterpretation of CBC data. Current Interpretive Data was last revised on 2017. Lymphocyte pct 14.8 % [facility] Comment: Interpretive Data Percent cell count reference ranges are not reported, since discordance with absolute values may lead to misinterpretation of CBC data. Current Interpretive Data was last revised on 2017. Monocyte pct 9.0 % [facility] Comment: Interpretive Data Percent cell count reference ranges are not reported, since discordance with absolute values may lead to misinterpretation of CBC data. Current Interpretive Data was last revised on 2017. Eosinophil pct 0.6 % [facility] Comment: Interpretive Data Percent cell count reference ranges are not reported, since discordance with absolute values may lead to misinterpretation of CBC data. Current Interpretive Data was last revised on 2017. Basophil pct 0.3 % [facility] Comment: Interpretive Data Percent cell count reference ranges are not reported, since discordance with absolute values may lead to misinterpretation of CBC data. Current Interpretive Data was last revised on 2017. Blood 03/26/2024 5:05 AM RADIO FREQUENCY ENGINEER 03/26/2024 5:18 AM RADIO FREQUENCY ENGINEER Ricki Mills MD LAB BLOOD ORDERABLES Final Result Performing Organization Address City/[facility]/ZIP Co de Phone Number JESSIE [address] [address] * (ABNORMAL) CBC with auto differential (03/26/2024 5:05 AM RADIO FREQUENCY ENGINEER) Pathologist [facility] WBC 6.7 3.8 - 9.9 K/cumm Hgb 7.7(L) 13.0 - 17.5 g/dL [facility] Hct 23.9(L) 38.9 - 50.3 % [facility] Plt 183 150 - 400 K/cumm [facility] MPV 9.4 9.1 - 12.3 fL [facility] RBC 2.90(L) 4.30 - 5.80 M/cumm [facility] MCV 82.4 81.3 - 96.4 fL [facility] MCH 26.6(L) 27.1 - 33.3 pg [facility] MCHC 32.2(L) 32.3 - 35.7 g/dL [facility] RDW CV 16.3(H) 11.1 - 14.9 % [facility] RDW SD 50.1(H) 35.7 - 48.1 fL [facility] NRBC abs 0.00 0.00 - 0.01 K/cumm [facility] Blood 03/26/2024 5:05 AM RADIO FREQUENCY ENGINEER 03/26/2024 5:18 AM RADIO FREQUENCY ENGINEER Ricki Mills MD LAB BLOOD ORDERABLES Final Result JESSIE [address] [employer] [place] [address] * ABO/Rh (03/26/2024 5:05 AM RADIO FREQUENCY ENGINEER) Pathologist [facility] ABO/Rh O Negative Blood 03/26/2024 5:05 AM RADIO FREQUENCY ENGINEER 03/26/2024 5:17 AM RADIO FREQUENCY ENGINEER Narrative [facility] - 03/26/2024 5:53 AM RADIO FREQUENCY ENGINEER Has the patient had Daratumumab or Isatuximab in the past 6 months?->Unknown Anjali Kline NP LAB BLOOD BANK TEST ORDERABLES Final Result Performing Organization Address [facility]/RUST de Phone Number [address] [address] * Crossmatch (03/26/2024 5:05 AM RADIO FREQUENCY ENGINEER) Pathologist [facility] Crossmatch Compatible [facility] Unit number for crossmatch [id number] [facility] Blood 03/26/2024 5:05 AM RADIO FREQUENCY ENGINEER 03/26/2024 5:17 AM RADIO FREQUENCY ENGINEER Inocencia Fair MD LAB BLOOD BANK TEST OR DERABLES Final Result Performing Organization Address [facility] de Phone Number [address] [address] * Antibody screen (03/26/2024 5:05 AM RADIO FREQUENCY ENGINEER) Pathologist [facility] Fermin, indirect, Gel Interpretation Negative ABSC Blood 03/26/2024 5:05 AM RADIO FREQUENCY ENGINEER 03/26/2024 5:17 AM RADIO FREQUENCY ENGINEER Narrative [facility] - 03/26/2024 5:53 AM RADIO FREQUENCY ENGINEER Has the patient had Daratumumab or Isatuximab in the past 6 months?->Unknown Anjali Kline NP LAB BLOOD BANK TEST ORDERABLES Final Result Performing Organization Address [facility]/RUST de Phone Number [address] [address] * Vancomycin level random (03/26/2024 5:05 AM RADIO FREQUENCY ENGINEER) Pathologist [facility] Vancomycin random 15.6 mcg/mL Comment: Interpretive Data No reference ranges have been established for random drug levels. Current Interpretive Data was last revised on 2020. Blood 03/26/2024 5:05 AM RADIO FREQUENCY ENGINEER 03/26/2024 9:48 AM RADIO FREQUENCY ENGINEER us Inocencia Fair MD LAB BLOOD ORDERABLES F inal Result Performing Organization Address City/[facility]/ZIP Co de Phone Number JESSIE [address] [facility] [place] [address] * (ABNORMAL) Basic metabolic panel (03/26/2024 5:05 AM RADIO FREQUENCY ENGINEER) [facility] Sodium 130(L) 135 - 145 mmol/L Potassium, pl 5.0(H) 3.3 - 4.9 mmol/L [facility] Chloride 90(L) 97 - 110 mmol/L [facility] CO2 24 22 - 32 mmol/L [facility] Anion gap 16(H) 2 - 15 mmol/L [facility] BUN 53(H) 6 - 25 mg/dL [facility] Creatinine 9.19(H) 0.80 - 1.30 mg/dL [facility] Glucose 185 70 - 199 mg/dL [facility] Comment: Interpretive Data Fasting glucose >/= 126 mg/dl is diagnostic for diabetes. Fasting is defined as no caloric intake for at least 8 hours. Fasting glucose between 100 mg/dl to 125 mg/dl is diagnostic of prediabetes. In a patient with classic symptoms of hyperglycemia or hyperglycemic crisis, a random glucose >/= 200 mg/dl is diagnostic for diabetes. In the absence of unequivocal hyperglycemia, results should be confirmed by repeat testing. The classification and Diagnosis of Diabetes Diabetes Care 2021; 46: S19-S40. Current interpretive data was last revised 2022. Calcium 8.7 8.5 - 10.3 mg/dL [facility] Blood 03/26/2024 5:05 AM RADIO FREQUENCY ENGINEER 03/26/2024 5:18 AM RADIO FREQUENCY ENGINEER us Ricki Mills MD LAB BLOOD ORDERABLES Final Result Performing Organization Address City/[facility]/ZIP Co de Phone Number JESSIE [address] [facility] [employer] [place] [address] * POCT glucose (03/25/2024 5:20 PM RADIO FREQUENCY ENGINEER) Pathologist [facility] Glucose, POC 189 70 - 199 mg/dL Glucose comment 1 RN/MD Notified JESSIE Blood 03/25/2024 5:20 PM RADIO FREQUENCY ENGINEER 03/25/2024 5:20 PM RADIO FREQUENCY ENGINEER Inocencia Fair MD LAB POCT ORDERABLES - DEVICE Final Result Performing Organization Address [facility]/[place] de Phone Number [address] [employer] [place] [address] * POCT glucose (03/25/2024 12:18 PM RADIO FREQUENCY ENGINEER) Glucose, POC 127 70 - 199 mg/dL Glucose comment 1 RN/ Notified [facility] Blood 03/25/2024 12:1 8 PM RADIO FREQUENCY ENGINEER 03/25/2024 12:18 PM RADIO FREQUENCY ENGINEER Result [facility] Inocencia Fair MD LAB POCT ORDERABLES - DEVICE Final Result Performing Organization Address [facility] de Phone Number [address] [employer] [place] [address] * POCT glucose (03/25/2024 10:34 AM RADIO FREQUENCY ENGINEER) Glucose, POC 151 70 - 199 mg/dL Glucose comment 1 RN/ Notified [facility] Blood 03/25/2024 10:3 4 AM RADIO FREQUENCY ENGINEER 03/25/2024 10:34 AM RADIO FREQUENCY ENGINEER Result [facility] Inocencia Fair MD LAB POCT ORDERABLES - DEVICE Final Result Performing Organization Address [facility]/[place] de Phone Number [address] [employer] [place] [address] * ANGIOGRAPHY UNILATERAL EXTREMITY S&I [id number], ATHERECTOMY - PERIPHERAL (03/25/2024 9:37 AM RADIO FREQUENCY ENGINEER) Anatomical Region Laterality Modality X-Ray Angiograph y Narrative 03/25/2024 9:38 AM RADIO FREQUENCY ENGINEER Please see OpNote for result. Anjali Kline NP CV CARDIAC CATH PROCEDURES Nita l Result * (ABNORMAL) POCT glucose (03/24/2024 8:10 PM RADIO FREQUENCY ENGINEER) Glucose, POC 242(H) 70 - 199 mg/dL Blood 03/24/2024 8:10 PM RADIO FREQUENCY ENGINEER 03/24/2024 8:10 PM RADIO FREQUENCY ENGINEER Tony Mari MD LAB POCT ORDERABLES - DEVICE Final Result Performing Organization Address [facility]/[place] de Phone Number [address] [employer] [place] [address] * POCT glucose (03/24/2024 4:57 PM RADIO FREQUENCY ENGINEER) Glucose, POC 148 70 - 199 mg/dL Blood 03/24/2024 4:57 PM RADIO FREQUENCY ENGINEER 03/24/2024 4:57 PM RADIO FREQUENCY ENGINEER Tony Mari MD LAB POCT ORDERABLES - DEVICE Final Result Performing Organization Address [facility] Phone Number [address] [employer] [place] [address] * MRI Foot Right WO Contrast (03/24/2024 3:20 PM RADIO FREQUENCY ENGINEER) Anatomical Region Laterality Modality Lower Extremities Right Magnetic Reson ance 03/24/2024 3:59 PM RADIO FREQUENCY ENGINEER Narrative 03/24/2024 4:12 PM RADIO FREQUENCY ENGINEER EXAM DESCRIPTION: MRI FOOT RIGHT WO CONTRAST REASON FOR STUDY: Osteomyelitis for follow-up TECHNIQUE: Multiplanar, multisequence MRI of the right foot was performed without contrast. COMPARISON: Radiograph dated March 20, 2024 FINDINGS: Bones: Old fracture deformity neck of the 2nd 3rd 4th and 5th metatarsals. There is no other evidence of acute fracture. Articulations: Moderate hallux valgus deformity. The hallux sesamoid complex is intact without evidence of fracture, sesamoiditis or avascular necrosis. Mild arthritic changes midfoot. Soft Tissues: Diffuse muscle atrophy likely due to underlying neuropathy suggest diabetic neuropathy. No evidence of a drainable fluid collection to suggest the presence of an abscess. Tendons: The flexor and extensor tendons are intact. Lisfranc Ligament: Intact. Susceptibility artifact is noted at the base of the 2nd metatarsal IMPRESSION: No evidence of osteomyelitis. Old fracture deformity neck of the 2nd 3rd 4th and 5th metatarsals. Moderate hallux valgus deformity. Mild arthritic changes midfoot. Diffuse muscle atrophy likely due to underlying neuropathy suggest diabetic neuropathy. THIS IS AN ELECTRONICALLY VERIFIED FINAL REPORT 03/24/2024 4:12 PM - Electronically signed by Ananda MARMOLEJO T: Report ID: [id number] Reading Location: [place] [address] Procedure Note Ananda Mike MD - 03/24/2024 EXAM DESCRIPTION: MRI FOOT RIGHT WO CONTRAST REASON FOR STUDY: Osteomyelitis for follow-up TECHNIQUE: Multiplanar, multisequence MRI of the right foot wasperformed without contrast. COMPARISON: Radiograph dated March 20, 2024 FINDINGS: Bones: Old fracture deformity neck of the 2nd 3rd 4th and 5th metatarsals. There is no other evidence of acute fracture. Articulations: Moderate hallux valgus deformity. The hallux sesamoid complex is intact without evidence of fracture, sesamoiditis or avascular necrosis. Mild arthritic changes midfoot. Soft Tissues: Diffuse muscle atrophy likely due to underlying neuropathy suggest diabetic neuropathy. No evidence of a drainable fluid collectionto suggest the presence of an abscess. Tendons: The flexor and extensor tendons are intact. Lisfranc Ligament: Intact. Susceptibility artifact is noted at the base of the 2nd metatarsal IMPRESSION: No evidence of osteomyelitis. Old fracture deformity neck of the 2nd 3rd 4th and 5th metatarsals. Moderate hallux valgus deformity. Mild arthritic changes midfoot. Diffuse muscle atrophy likely due to underlying neuropathy suggestdiabetic neuropathy. THIS IS AN ELECTRONICALLY VERIFIED FINAL REPORT 03/24/2024 4:12 PM - Electronically signed by Ananda MARMOLEJO T: Report ID: [id number] Reading Location: [place] [address] [place] Graham MD IMG MRI PROCEDU RES Final Result * POCT glucose (03/24/2024 12:35 PM RADIO FREQUENCY ENGINEER) Glucose, POC 132 70 - 199 mg/dL Blood 03/24/2024 12:3 5 PM RADIO FREQUENCY ENGINEER 03/24/2024 12:35 PM RADIO FREQUENCY ENGINEER Tony Mari MD LAB POCT ORDERABLES - DEVICE Final Result Performing Organization Address City/[facility] Co de Phone Number JESSIE [address] [place] [address] * (ABNORMAL) eGFR (03/24/2024 5:20 AM RADIO FREQUENCY ENGINEER) eGFR 7(L) >=60 mL/min/1. 73 m2 Comment: Interpretive Data Reference Interval Normal >/= 90 mL/min/1.73m2 Mildly decreased* 60 - 89 mL/min/1.73m2 Mildly to moderately decreased 45 - 59 mL/min/1.73m2 Moderately to severely decreased 30 - 44 mL/min/1.73m2 Severely decreased 15 - 29 mL/min/1.73m2 Kidney Failure < 15 mL/min/1.73m2 *Relative to young adult level Estimated glomerular filtration rate is determined by the 2020 CKD-EPI equation recommended by the National Kidney Foundation (A Unifying Approach to GFR Estimation: Recommendations of the NKF-ASK Task Force on Reassessing the Inclusion of Race in Diagnosing Kidney Disease, JASN 2020). The CKD-EPI equation should not be used for patients with unstable renal function and has not been validated in children and those over 70. Current interpretive data was last reviewed 2021. Blood 03/24/2024 5:20 AM RADIO FREQUENCY ENGINEER 03/24/2024 5:31 AM RADIO FREQUENCY ENGINEER Carmen Graham MD LAB BLOOD ORDER THEODORE Final Result Performing Organization Address City/[facility]/ZIP Co de Phone Number JESSIE [address] Department [place] [address] * Differential, auto (03/24/2024 5:20 AM RADIO FREQUENCY ENGINEER) Pathologist [facility] Neutrophil abs 5.2 1.5 - 6.5 K/cumm Imm gran abs 0.0 0.0 - 0.1 K/cumm [facility] Lymphocyte abs 0.8 0.8 - 3.3 K/cumm [facility] Monocyte abs 0.5 0.2 - 0.8 K/cumm [facility] Eosinophil abs 0.0 0.0 - 0.5 K/cumm [facility] Basophil abs 0.0 0.0 - 0.1 K/cumm [facility] Neutrophil pct 80.2 % [facility] Comment: Interpretive Data Percent cell count reference ranges are not reported, since discordance with absolute values may lead to misinterpretation of CBC data. Current Interpretive Data was last revised on 2017. Imm gran pct 0.5 % [facility] Comment: Interpretive Data Percent cell count reference ranges are not reported, since discordance with absolute values may lead to misinterpretation of CBC data. Current Interpretive Data was last revised on 2017. Lymphocyte pct 11.8 % [facility] Comment: Interpretive Data Percent cell count reference ranges are not reported, since discordance with absolute values may lead to misinterpretation of CBC data. Current Interpretive Data was last revised on 2017. Monocyte pct 7.0 % [facility] Comment: Interpretive Data Percent cell count reference ranges are not reported, since discordance with absolute values may lead to misinterpretation of CBC data. Current Interpretive Data was last revised on 2017. Eosinophil pct 0.3 % [facility] Comment: Interpretive Data Percent cell count reference ranges are not reported, since discordance with absolute values may lead to misinterpretation of CBC data. Current Interpretive Data was last revised on 2017. Basophil pct 0.2 % [facility] Comment: Interpretive Data Percent cell count reference ranges are not reported, since discordance with absolute values may lead to misinterpretation of CBC data. Current Interpretive Data was last revised on 2017. Blood 03/24/2024 5:20 AM RADIO FREQUENCY ENGINEER 03/24/2024 5:31 AM RADIO FREQUENCY ENGINEER Tony Mari MD LAB BLOOD ORDERABLES Final Result Performing Organization Address [facility]/[place] de Phone Number [address] [address] * (ABNORMAL) CBC with auto differential (03/24/2024 5:20 AM RADIO FREQUENCY ENGINEER) [facility] WBC 6.5 3.8 - 9.9 K/cumm Hgb 7.6(L) 13.0 - 17.5 g/dL [facility] Hct 22.9(L) 38.9 - 50.3 % [facility] Plt 176 150 - 400 K/cumm [facility] MPV 10.0 9.1 - 12.3 fL [facility] RBC 2.79(L) 4.30 - 5.80 M/cumm [facility] MCV 82.1 81.3 - 96.4 fL [facility] MCH 27.2 27.1 - 33.3 pg [facility] MCHC 33.2 32.3 - 35.7 g/dL [facility] RDW CV 15.9(H) 11.1 - 14.9 % [facility] RDW SD 48.1 35.7 - 48.1 fL [facility] NRBC abs 0.00 0.00 - 0.01 K/cumm [facility] Blood 03/24/2024 5:20 AM RADIO FREQUENCY ENGINEER 03/24/2024 5:31 AM RADIO FREQUENCY ENGINEER Ricki Mills MD LAB BLOOD ORDERABLES Final Result Performing Organization Address [facility] Co de Phone Number [address] [address] * Vancomycin level random (03/24/2024 5:20 AM RADIO FREQUENCY ENGINEER) [facility] Vancomycin random 17.0 mcg/mL Comment: Interpretive Data No reference ranges have been established for random drug levels. Current Interpretive Data was last revised on 2020. Blood 03/24/2024 5:20 AM RADIO FREQUENCY ENGINEER 03/24/2024 5:31 AM RADIO FREQUENCY ENGINEER Tony Mari MD LAB BLOOD ORDERABLES Final Result [facility] [address] [place] [address] [employer] [place] [address] * (ABNORMAL) Basic metabolic panel (03/24/2024 5:20 AM RADIO FREQUENCY ENGINEER) [facility] Sodium 129(L) 135 - 145 mmol/L Potassium, pl 5.1(H) 3.3 - 4.9 mmol/L [facility] Chloride 89(L) 97 - 110 mmol/L [facility] CO2 26 22 - 32 mmol/L [facility] Anion gap 14 2 - 15 mmol/L [facility] BUN 58(H) 6 - 25 mg/dL [facility] Creatinine 8.42(H) 0.80 - 1.30 mg/dL [facility] Glucose 211(H) 70 - 199 mg/dL [facility] Comment: Interpretive Data Fasting glucose >/= 126 mg/dl is diagnostic for diabetes. Fasting is defined as no caloric intake for at least 8 hours. Fasting glucose between 100 mg/dl to 125 mg/dl is diagnostic of prediabetes. In a patient with classic symptoms of hyperglycemia or hyperglycemic crisis, a random glucose >/= 200 mg/dl is diagnostic for diabetes. In the absence of unequivocal hyperglycemia, results should be confirmed by repeat testing. The classification and Diagnosis of Diabetes Diabetes Care 2021; 46: S19-S40. Current interpretive data was last revised 2022. Calcium 7.8(L) 8.5 - 10.3 mg/dL [facility] Blood 03/24/2024 5:20 AM RADIO FREQUENCY ENGINEER 03/24/2024 5:31 AM RADIO FREQUENCY ENGINEER Ricki Mills MD LAB BLOOD ORDERABLES Final Result Performing Organization Address City/[facility]/ZIP Co de Phone Number [facility] [address] [place] [address] [employer] [place] [address] * POCT glucose (03/24/2024 4:58 AM RADIO FREQUENCY ENGINEER) [facility] Glucose, POC 196 70 - 199 mg/dL Blood 03/24/2024 4:58 AM RADIO FREQUENCY ENGINEER 03/24/2024 4:58 AM RADIO FREQUENCY ENGINEER us Tony Mari MD LAB POCT ORDERABLES - DEVICE Final Result JESSIE [address] [employer] [place] [address] * Transfuse RBC (03/23/2024 8:13 PM RADIO FREQUENCY ENGINEER) Blood Tony Mari MD BLOOD TRANSFUSION ORD ERABLES Final Result Performing Organization Address [facility]/ZIP Co de Phone Number JESSIE [address] [employer] [place] [address] * (ABNORMAL) POCT glucose (03/23/2024 8:08 PM RADIO FREQUENCY ENGINEER) Glucose, POC 292(H) 70 - 199 mg/dL Blood 03/23/2024 8:08 PM RADIO FREQUENCY ENGINEER 03/23/2024 8:08 PM RADIO FREQUENCY ENGINEER Tony Mari MD LAB POCT ORDERABLES - DEVICE Final Result Performing Organization Address [facility]/ZIP Co de Phone Number [address] [employer] [place] [address] * (ABNORMAL) POCT glucose (03/23/2024 5:17 PM RADIO FREQUENCY ENGINEER) Glucose, POC 325(H) 70 - 199 mg/dL Glucose comment 1 RN/MD Notified [facility] Blood 03/23/2024 5:17 PM RADIO FREQUENCY ENGINEER 03/23/2024 5:17 PM RADIO FREQUENCY ENGINEER Tony Mari MD LAB POCT ORDERABLES - DEVICE Final Result [address] [employer] [place] [address] * Prepare RBC: 1 Units (03/23/2024 1:54 PM RADIO FREQUENCY ENGINEER) Units requested 1 Units requested Ready JESSIE Unit Number [id number] Product code [id number] [facility] Blood Expiration Date [id number] [facility] Product Blood Type (for scanning) 9500 [facility] Product Blood Type ONEG [facility] Dispense Status DISPENSED [facility] Blood 03/23/2024 1:54 PM RADIO FREQUENCY ENGINEER 03/23/2024 1:54 PM RADIO FREQUENCY ENGINEER Tony Mari MD BLOOD BANK PRODUCT OR DERABLES Final Result Performing Organization Address City/[facility]/ZIP Co de Phone Number SATISH[address] [place] [address] * ABO / Rh Confirmation Testing (03/23/2024 12:40 PM RADIO FREQUENCY ENGINEER) ABO/Rh Confirmation O Negative B Blood 03/23/2024 12:4 0 PM RADIO FREQUENCY ENGINEER 03/23/2024 12:45 PM RADIO FREQUENCY ENGINEER Tony Mari MD LAB BLOOD ORDERABLES Final Result Performing Organization Address [facility] Co de Phone Number [address] [employer] [place] [address] B * ABO/Rh (03/23/2024 11:41 AM RADIO FREQUENCY ENGINEER) ABO/Rh O Negative Blood 03/23/2024 11:4 1 AM RADIO FREQUENCY ENGINEER 03/23/2024 12:10 PM RADIO FREQUENCY ENGINEER Narrative [facility] - 03/23/2024 1:38 PM RADIO FREQUENCY ENGINEER Has the patient had Daratumumab or Isatuximab in the past 6 months?->Unknown Tony Mari MD LAB BLOOD BANK TEST O RDERABLES Final Result Performing Organization Address City/[facility]/ZIP Co de Phone Number [address] [employer] [place] [address] * Crossmatch (03/23/2024 11:41 AM RADIO FREQUENCY ENGINEER) Pathologist [facility] Crossmatch Compatible [facility] Unit number for crossmatch [id number] [facility] Blood 03/23/2024 11:4 1 AM RADIO FREQUENCY ENGINEER 03/23/2024 12:10 PM RADIO FREQUENCY ENGINEER Tony Mari MD LAB BLOOD BANK TEST O RDERABLES Final Result [address] [address] * Antibody screen (03/23/2024 11:41 AM RADIO FREQUENCY ENGINEER) Pathologist [facility] Fermin, indirect, Gel Interpretation Negative ABSC Blood 03/23/2024 11:4 1 AM RADIO FREQUENCY ENGINEER 03/23/2024 12:10 PM RADIO FREQUENCY ENGINEER Narrative [facility] - 03/23/2024 1:38 PM RADIO FREQUENCY ENGINEER Has the patient had Daratumumab or Isatuximab in the past 6 months?->Unknown Tony Mari MD LAB BLOOD BANK TEST O RDERABLES Final Result Performing Organization Address [facility]/ZIP Co de Phone Number [address] [address] * POCT glucose (03/23/2024 8:15 AM RADIO FREQUENCY ENGINEER) [facility] Glucose, POC 147 70 - 199 mg/dL Blood 03/23/2024 8:15 AM RADIO FREQUENCY ENGINEER 03/23/2024 8:15 AM RADIO FREQUENCY ENGINEER Tony Mari MD LAB POCT ORDERABLES - DEVICE Final Result Performing Organization Address City/[facility]/ZIP Co de Phone Number [address] [employer] [place] [address] * (ABNORMAL) eGFR (03/23/2024 6:15 AM RADIO FREQUENCY ENGINEER) Pathologist [facility] eGFR 10(L) >=60 mL/min/1. 73 m2 Comment: Interpretive Data Reference Interval Normal >/= 90 mL/min/1.73m2 Mildly decreased* 60 - 89 mL/min/1.73m2 Mildly to moderately decreased 45 - 59 mL/min/1.73m2 Moderately to severely decreased 30 - 44 mL/min/1.73m2 Severely decreased 15 - 29 mL/min/1.73m2 Kidney Failure < 15 mL/min/1.73m2 *Relative to young adult level Estimated glomerular filtration rate is determined by the 2020 CKD-EPI equation recommended by the National Kidney Foundation (A Unifying Approach to GFR Estimation: Recommendations of the NKF-ASK Task Force on Reassessing the Inclusion of Race in Diagnosing Kidney Disease, JASN 2020). The CKD-EPI equation should not be used for patients with unstable renal function and has not been validated in children and those over 70. Current interpretive data was last reviewed 2021. Blood 03/23/2024 6:15 AM RADIO FREQUENCY ENGINEER 03/23/2024 6:55 AM RADIO FREQUENCY ENGINEER Carmen Graham MD LAB BLOOD ORDER THEODORE Final Result JESSIE [address] [facility] Department [place] [address] * Differential, auto (03/23/2024 6:15 AM RADIO FREQUENCY ENGINEER) Pathologist [facility] Neutrophil abs 3.7 1.5 - 6.5 K/cumm Imm gran abs 0.0 0.0 - 0.1 K/cumm [facility] Lymphocyte abs 1.0 0.8 - 3.3 K/cumm [facility] Monocyte abs 0.4 0.2 - 0.8 K/cumm [facility] Eosinophil abs 0.0 0.0 - 0.5 K/cumm [facility] Basophil abs 0.0 0.0 - 0.1 K/cumm [facility] Neutrophil pct 72.0 % [facility] Comment: Interpretive Data Percent cell count reference ranges are not reported, since discordance with absolute values may lead to misinterpretation of CBC data. Current Interpretive Data was last revised on 2017. Imm gran pct 0.4 % [facility] Comment: Interpretive Data Percent cell count reference ranges are not reported, since discordance with absolute values may lead to misinterpretation of CBC data. Current Interpretive Data was last revised on 2017. Lymphocyte pct 18.6 % [facility] Comment: Interpretive Data Percent cell count reference ranges are not reported, since discordance with absolute values may lead to misinterpretation of CBC data. Current Interpretive Data was last revised on 2017. Monocyte pct 8.4 % [facility] Comment: Interpretive Data Percent cell count reference ranges are not reported, since discordance with absolute values may lead to misinterpretation of CBC data. Current Interpretive Data was last revised on 2017. Eosinophil pct 0.4 % [facility] Comment: Interpretive Data Percent cell count reference ranges are not reported, since discordance with absolute values may lead to misinterpretation of CBC data. Current Interpretive Data was last revised on 2017. Basophil pct 0.2 % [facility] Comment: Interpretive Data Percent cell count reference ranges are not reported, since discordance with absolute values may lead to misinterpretation of CBC data. Current Interpretive Data was last revised on 2017. Blood 03/23/2024 6:15 AM RADIO FREQUENCY ENGINEER 03/23/2024 6:55 AM RADIO FREQUENCY ENGINEER us Tony Mari MD LAB BLOOD ORDERABLES Final Result Performing Organization Address City/State/[facility] Co de Phone Number [facility] [address] [facility] Department [place] [address] * (ABNORMAL) CBC with auto differential (03/23/2024 6:15 AM RADIO FREQUENCY ENGINEER) WBC 5.1 3.8 - 9.9 K/cumm Hgb 6.9(L) 13.0 - 17.5 g/dL [facility] Hct 21.5(L) 38.9 - 50.3 % [facility] Plt 173 150 - 400 K/cumm [facility] MPV 10.1 9.1 - 12.3 fL [facility] RBC 2.60(L) 4.30 - 5.80 M/cumm [facility] MCV 82.7 81.3 - 96.4 fL [facility] MCH 26.5(L) 27.1 - 33.3 pg [facility] MCHC 32.1(L) 32.3 - 35.7 g/dL [facility] RDW CV 16.3(H) 11.1 - 14.9 % [facility] RDW SD 49.4(H) 35.7 - 48.1 fL [facility] NRBC abs 0.00 0.00 - 0.01 K/cumm [facility] Blood 03/23/2024 6:15 AM RADIO FREQUENCY ENGINEER 03/23/2024 6:55 AM RADIO FREQUENCY ENGINEER us Ricki Mills MD LAB BLOOD ORDERABLES Final Result [facility] [address] [facility] Department of Laboratories [place], [place] [id number] * (ABNORMAL) Basic metabolic panel (03/23/2024 6:15 AM RADIO FREQUENCY ENGINEER) Sodium 131(L) 135 - 145 mmol/L Potassium, pl 4.5 3.3 - 4.9 mmol/L [facility] Chloride 91(L) 97 - 110 mmol/L [facility] CO2 28 22 - 32 mmol/L [facility] Anion gap 12 2 - 15 mmol/L [facility] BUN 40(H) 6 - 25 mg/dL [facility] Creatinine 6.28(H) 0.80 - 1.30 mg/dL [facility] Glucose 150 70 - 199 mg/dL [facility] Comment: Interpretive Data Fasting glucose >/= 126 mg/dl is diagnostic for diabetes. Fasting is defined as no caloric intake for at least 8 hours. Fasting glucose between 100 mg/dl to 125 mg/dl is diagnostic of prediabetes. In a patient with classic symptoms of hyperglycemia or hyperglycemic crisis, a random glucose >/= 200 mg/dl is diagnostic for diabetes. In the absence of unequivocal hyperglycemia, results should be confirmed by repeat testing. The classification and Diagnosis of Diabetes Diabetes Care 2021; 46: S19-S40. Current interpretive data was last revised 2022. Calcium 7.7(L) 8.5 - 10.3 mg/dL [facility] Blood 03/23/2024 6:15 AM RADIO FREQUENCY ENGINEER 03/23/2024 6:55 AM RADIO FREQUENCY ENGINEER Ricki Mills MD LAB BLOOD ORDERABLES Final Result Performing Organization Address [facility] Co de Phone Number [address] [address] * (ABNORMAL) POCT glucose (03/22/2024 8:17 PM RADIO FREQUENCY ENGINEER) Glucose, POC 261(H) 70 - 199 mg/dL Glucose comment 1 Use This Result [facility] Blood 03/22/2024 8:17 PM RADIO FREQUENCY ENGINEER 03/22/2024 8:17 PM RADIO FREQUENCY ENGINEER Tony Mari MD LAB POCT ORDERABLES - DEVICE Final Result Performing Organization Address [facility] Co de Phone Number [address] [employer] [place] [address] * (ABNORMAL) POCT glucose (03/22/2024 6:38 PM RADIO FREQUENCY ENGINEER) Glucose, POC 271(H) 70 - 199 mg/dL Blood 03/22/2024 6:38 PM RADIO FREQUENCY ENGINEER 03/22/2024 6:38 PM RADIO FREQUENCY ENGINEER Tony Mari MD LAB POCT ORDERABLES - DEVICE Final Result Performing Organization Address [facility] Co de Phone Number [address] [employer] [place] [address] * POCT glucose (03/22/2024 12:46 PM RADIO FREQUENCY ENGINEER) Glucose, POC 149 70 - 199 mg/dL Blood 03/22/2024 12:4 6 PM RADIO FREQUENCY ENGINEER 03/22/2024 12:46 PM RADIO FREQUENCY ENGINEER Tony Mari MD LAB POCT ORDERABLES - DEVICE Final Result Performing Organization Address [facility]/[place] de Phone Number JESSIE [facility] [employer] [place] [address] * POCT glucose (03/22/2024 7:19 AM RADIO FREQUENCY ENGINEER) Glucose, POC 167 70 - 199 mg/dL Blood 03/22/2024 7:19 AM RADIO FREQUENCY ENGINEER 03/22/2024 7:19 AM RADIO FREQUENCY ENGINEER Tony Mari MD LAB POCT ORDERABLES - DEVICE Final Result Performing Organization Address [facility] de Phone Number JESSIE [address] [employer] [place] [address] * (ABNORMAL) eGFR (03/22/2024 4:49 AM RADIO FREQUENCY ENGINEER) eGFR 10(L) >=60 mL/min/1. 73 m2 Comment: Interpretive Data Reference Interval Normal >/= 90 mL/min/1.73m2 Mildly decreased* 60 - 89 mL/min/1.73m2 Mildly to moderately decreased 45 - 59 mL/min/1.73m2 Moderately to severely decreased 30 - 44 mL/min/1.73m2 Severely decreased 15 - 29 mL/min/1.73m2 Kidney Failure < 15 mL/min/1.73m2 *Relative to young adult level Estimated glomerular filtration rate is determined by the 2020 CKD-EPI equation recommended by the National Kidney Foundation (A Unifying Approach to GFR Estimation: Recommendations of the NKF-ASK Task Force on Reassessing the Inclusion of Race in Diagnosing Kidney Disease, JASN 2020). The CKD-EPI equation should not be used for patients with unstable renal function and has not been validated in children and those over 70. Current interpretive data was last reviewed 2021. Blood 03/22/2024 4:49 AM RADIO FREQUENCY ENGINEER 03/22/2024 5:00 AM RADIO FREQUENCY ENGINEER Tony Mari MD LAB BLOOD ORDERABLES Final Result JESSIE [address] [facility] Department [place] [address] * Differential, auto (03/22/2024 4:49 AM RADIO FREQUENCY ENGINEER) Neutrophil abs 3.6 1.5 - 6.5 K/cumm Imm gran abs 0.0 0.0 - 0.1 K/cumm [facility] Lymphocyte abs 0.8 0.8 - 3.3 K/cumm [facility] Monocyte abs 0.4 0.2 - 0.8 K/cumm [facility] Eosinophil abs 0.0 0.0 - 0.5 K/cumm [facility] Basophil abs 0.0 0.0 - 0.1 K/cumm [facility] Neutrophil pct 74.9 % [facility] Comment: Interpretive Data Percent cell count reference ranges are not reported, since discordance with absolute values may lead to misinterpretation of CBC data. Current Interpretive Data was last revised on 2017. Imm gran pct 0.2 % [facility] Comment: Interpretive Data Percent cell count reference ranges are not reported, since discordance with absolute values may lead to misinterpretation of CBC data. Current Interpretive Data was last revised on 2017. Lymphocyte pct 16.4 % [facility] Comment: Interpretive Data Percent cell count reference ranges are not reported, since discordance with absolute values may lead to misinterpretation of CBC data. Current Interpretive Data was last revised on 2017. Monocyte pct 7.7 % [facility] Comment: Interpretive Data Percent cell count reference ranges are not reported, since discordance with absolute values may lead to misinterpretation of CBC data. Current Interpretive Data was last revised on 2017. Eosinophil pct 0.6 % [facility] Comment: Interpretive Data Percent cell count reference ranges are not reported, since discordance with absolute values may lead to misinterpretation of CBC data. Current Interpretive Data was last revised on 2017. Basophil pct 0.2 % [facility] Comment: Interpretive Data Percent cell count reference ranges are not reported, since discordance with absolute values may lead to misinterpretation of CBC data. Current Interpretive Data was last revised on 2017. Blood 03/22/2024 4:49 AM RADIO FREQUENCY ENGINEER 03/22/2024 4:59 AM RADIO FREQUENCY ENGINEER Tony Mari MD LAB BLOOD ORDERABLES Final Result Performing Organization Address City/[facility] Co de Phone Number JESSIE [address] [address] * (ABNORMAL) CBC with auto differential (03/22/2024 4:49 AM RADIO FREQUENCY ENGINEER) [facility] WBC 4.8 3.8 - 9.9 K/cumm Hgb 7.4(L) 13.0 - 17.5 g/dL [facility] Hct 23.1(L) 38.9 - 50.3 % [facility] Plt 167 150 - 400 K/cumm [facility] MPV 9.5 9.1 - 12.3 fL [facility] RBC 2.78(L) 4.30 - 5.80 M/cumm [facility] MCV 83.1 81.3 - 96.4 fL [facility] MCH 26.6(L) 27.1 - 33.3 pg [facility] MCHC 32.0(L) 32.3 - 35.7 g/dL [facility] RDW CV 16.3(H) 11.1 - 14.9 % [facility] RDW SD 50.0(H) 35.7 - 48.1 fL [facility] NRBC abs 0.00 0.00 - 0.01 K/cumm [facility] Blood 03/22/2024 4:49 AM RADIO FREQUENCY ENGINEER 03/22/2024 4:59 AM RADIO FREQUENCY ENGINEER Ricki Mills MD LAB BLOOD ORDERABLES Final Result Performing Organization Address City/[facility]/ZIP Co de Phone Number [address] [address] * Vancomycin level random (03/22/2024 4:49 AM RADIO FREQUENCY ENGINEER) [facility] Vancomycin random 19.1 mcg/mL Comment: Interpretive Data No reference ranges have been established for random drug levels. Current Interpretive Data was last revised on 2020. Blood 03/22/2024 4:49 AM RADIO FREQUENCY ENGINEER 03/22/2024 5:00 AM RADIO FREQUENCY ENGINEER Tony Mari MD LAB BLOOD ORDERABLES Final Result J[facility]IE [address] [facility] Department [place] [address] * (ABNORMAL) Basic metabolic panel (03/22/2024 4:49 AM RADIO FREQUENCY ENGINEER) [facility] Sodium 131(L) 135 - 145 mmol/L Potassium, pl 4.9 3.3 - 4.9 mmol/L [facility] Chloride 91(L) 97 - 110 mmol/L [facility] CO2 27 22 - 32 mmol/L [facility] Anion gap 13 2 - 15 mmol/L [facility] BUN 42(H) 6 - 25 mg/dL [facility] Creatinine 6.22(H) 0.80 - 1.30 mg/dL [facility] Glucose 170 70 - 199 mg/dL [facility] Comment: Interpretive Data Fasting glucose >/= 126 mg/dl is diagnostic for diabetes. Fasting is defined as no caloric intake for at least 8 hours. Fasting glucose between 100 mg/dl to 125 mg/dl is diagnostic of prediabetes. In a patient with classic symptoms of hyperglycemia or hyperglycemic crisis, a random glucose >/= 200 mg/dl is diagnostic for diabetes. In the absence of unequivocal hyperglycemia, results should be confirmed by repeat testing. The classification and Diagnosis of Diabetes Diabetes Care 2021; 46: S19-S40. Current interpretive data was last revised 2022. Calcium 6.5(C) 8.5 - 10.3 mg/dL [facility] Comment:Critical Result call ed to and read back by [id number], DATE: 2024-03-22 05:53:08 BY: [id number] Blood 03/22/2024 4:49 AM RADIO FREQUENCY ENGINEER 03/22/2024 5:00 AM RADIO FREQUENCY ENGINEER Tony Mari MD LAB BLOOD ORDERABLES Final Result JESSIE [address] [address] * (ABNORMAL) POCT glucose (03/21/2024 8:14 PM RADIO FREQUENCY ENGINEER) Glucose, POC 239(H) 70 - 199 mg/dL Glucose comment 1 Use This Result JESSIE Blood 03/21/2024 8:14 PM RADIO FREQUENCY ENGINEER 03/21/2024 8:14 PM RADIO FREQUENCY ENGINEER Tony Mari MD LAB POCT ORDERABLES - DEVICE Final Result Performing Organization Address [facility] Co de Phone Number JESSIE [address] [address] * (ABNORMAL) POCT glucose (03/21/2024 5:29 PM RADIO FREQUENCY ENGINEER) Glucose, POC 236(H) 70 - 199 mg/dL Blood 03/21/2024 5:29 PM RADIO FREQUENCY ENGINEER 03/21/2024 5:29 PM RADIO FREQUENCY ENGINEER Tony Mari MD LAB POCT ORDERABLES - DEVICE Final Result Performing Organization Address [facility] Co de Phone Number JESSIE [address] [address] * US Arterial Doppler Lower Extremity Bilateral (03/21/2024 1:52 PM RADIO FREQUENCY ENGINEER) Anatomical Region Laterality Modality Vascular Bilateral Ultrasound 03/21/2024 Narrative 03/25/2024 8:54 AM RADIO FREQUENCY ENGINEER [employer] Job ID: [id number] [employer] Document ID: [id number] Dictated date/time: [id number] BILATERAL LOWER EXTREMITY ARTERIAL DOPPLER REASON FOR EXAM Right foot ulcer. FINDINGS ON THE RIGHT The right ankle-brachial index is 1.33. The right common femoral has triphasic waveforms. Popliteal, posterior tibial and dorsalis pedis have monophasic waveforms. FINDINGS ON THE LEFT The left ankle-brachial index is greater than 1.33. The left common femoral, popliteal, posterior tibial and dorsalis pedis have triphasic waveforms. Left digital-brachial index is 0.38. INTERPRETATION Bilateral ankle-brachial indices are falsely elevated due to noncompressibility of vessels. 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 Left digital-brachial index consistent with inframalleolar occlusive disease. Job ID/Internal Job ID: [id number] us Anjel Ochoa MD IMG US PROCEDURES Final Res ult * POCT glucose (03/21/2024 12:14 PM RADIO FREQUENCY ENGINEER) Glucose, POC 157 70 - 199 mg/dL Blood 03/21/2024 12:1 4 PM RADIO FREQUENCY ENGINEER 03/21/2024 12:14 PM RADIO FREQUENCY ENGINEER us Tony Mari MD LAB POCT ORDERABLES - DEVICE Final Result [facility] [address] [facility] Department [place] [address] * (ABNORMAL) eGFR (03/21/2024 7:37 AM RADIO FREQUENCY ENGINEER) eGFR 8(L) >=60 mL/min/1. 73 m2 Comment: Interpretive Data Reference Interval Normal >/= 90 mL/min/1.73m2 Mildly decreased* 60 - 89 mL/min/1.73m2 Mildly to moderately decreased 45 - 59 mL/min/1.73m2 Moderately to severely decreased 30 - 44 mL/min/1.73m2 Severely decreased 15 - 29 mL/min/1.73m2 Kidney Failure < 15 mL/min/1.73m2 *Relative to young adult level Estimated glomerular filtration rate is determined by the 2020 CKD-EPI equation recommended by the National Kidney Foundation (A Unifying Approach to GFR Estimation: Recommendations of the NKF-ASK Task Force on Reassessing the Inclusion of Race in Diagnosing Kidney Disease, JASN 2020). The CKD-EPI equation should not be used for patients with unstable renal function and has not been validated in children and those over 70. Current interpretive data was last reviewed 2021. Blood 03/21/2024 7:37 AM RADIO FREQUENCY ENGINEER 03/21/2024 7:42 AM RADIO FREQUENCY ENGINEER Carmen Graham MD LAB BLOOD ORDER THEODORE Final Result JESSIE [address] [facility] Department [place] [address] * (ABNORMAL) Differential, auto (03/21/2024 7:37 AM RADIO FREQUENCY ENGINEER) Pathologist [facility] Neutrophil abs 2.7 1.5 - 6.5 K/cumm Imm gran abs 0.0 0.0 - 0.1 K/cumm [facility] Lymphocyte abs 0.7(L) 0.8 - 3.3 K/cumm [facility] Monocyte abs 0.3 0.2 - 0.8 K/cumm [facility] Eosinophil abs 0.0 0.0 - 0.5 K/cumm [facility] Basophil abs 0.0 0.0 - 0.1 K/cumm [facility] Neutrophil pct 73.1 % [facility] Comment: Interpretive Data Percent cell count reference ranges are not reported, since discordance with absolute values may lead to misinterpretation of CBC data. Current Interpretive Data was last revised on 2017. Imm gran pct 0.3 % [facility] Comment: Interpretive Data Percent cell count reference ranges are not reported, since discordance with absolute values may lead to misinterpretation of CBC data. Current Interpretive Data was last revised on 2017. Lymphocyte pct 18.3 % [facility] Comment: Interpretive Data Percent cell count reference ranges are not reported, since discordance with absolute values may lead to misinterpretation of CBC data. Current Interpretive Data was last revised on 2017. Monocyte pct 7.5 % [facility] Comment: Interpretive Data Percent cell count reference ranges are not reported, since discordance with absolute values may lead to misinterpretation of CBC data. Current Interpretive Data was last revised on 2017. Eosinophil pct 0.8 % [facility] Comment: Interpretive Data Percent cell count reference ranges are not reported, since discordance with absolute values may lead to misinterpretation of CBC data. Current Interpretive Data was last revised on 2017. Basophil pct 0.0 % [facility] Comment: Interpretive Data Percent cell count reference ranges are not reported, since discordance with absolute values may lead to misinterpretation of CBC data. Current Interpretive Data was last revised on 2017. Blood 03/21/2024 7:37 AM RADIO FREQUENCY ENGINEER 03/21/2024 7:42 AM RADIO FREQUENCY ENGINEER Royer Odom MD LAB BLOOD ORDERABLES Final Re sult Performing Organization Address City/[facility] Co de Phone Number [address] [address] * (ABNORMAL) Thyroid Function [place] (03/21/2024 7:37 AM RADIO FREQUENCY ENGINEER) [facility] TSH 17.70(H) 0.30 - 4.20 mcIUnit/mL Blood 03/21/2024 7:37 AM RADIO FREQUENCY ENGINEER 03/21/2024 7:42 AM RADIO FREQUENCY ENGINEER Tony Mari MD LAB BLOOD ORDERABLES Final Result Performing Organization Address [facility] de Phone Number [address] [address] * (ABNORMAL) CBC with auto differential (03/21/2024 7:37 AM RADIO FREQUENCY ENGINEER) [facility] WBC 3.7(L) 3.8 - 9.9 K/cumm Hgb 7.5(L) 13.0 - 17.5 g/dL [facility] Hct 22.9(L) 38.9 - 50.3 % [facility] Plt 162 150 - 400 K/cumm [facility] MPV 10.0 9.1 - 12.3 fL [facility] RBC 2.81(L) 4.30 - 5.80 M/cumm [facility] MCV 81.5 81.3 - 96.4 fL [facility] MCH 26.7(L) 27.1 - 33.3 pg [facility] MCHC 32.8 32.3 - 35.7 g/dL [facility] RDW CV 16.1(H) 11.1 - 14.9 % [facility] RDW SD 48.6(H) 35.7 - 48.1 fL [facility] NRBC abs 0.00 0.00 - 0.01 K/cumm [facility] Blood 03/21/2024 7:37 AM RADIO FREQUENCY ENGINEER 03/21/2024 7:42 AM RADIO FREQUENCY ENGINEER Royer Odom MD LAB BLOOD ORDERABLES Final Re sult Performing Organization Address [facility] Co de Phone Number [address] [employer] [place] [address] * (ABNORMAL) T4, free (03/21/2024 7:37 AM RADIO FREQUENCY ENGINEER) Free T4 0.58(L) 0.90 - 1.70 ng/dL Blood 03/21/2024 7:37 AM RADIO FREQUENCY ENGINEER 03/21/2024 7:42 AM RADIO FREQUENCY ENGINEER Narrative [facility] - 03/21/2024 9:28 AM RADIO FREQUENCY ENGINEER This test was reflexed from a TSH result. Result [facility] Tony Mari MD LAB BLOOD ORDERABLES Final Result Performing Organization Address [facility] de Phone Number [address] [address] * Vancomycin level random (03/21/2024 7:37 AM RADIO FREQUENCY ENGINEER) Pathologist [facility] Vancomycin random <4.0 mcg/mL Comment: Interpretive Data No reference ranges have been established for random drug levels. Current Interpretive Data was last revised on 2020. Blood 03/21/2024 7:37 AM RADIO FREQUENCY ENGINEER 03/21/2024 7:42 AM RADIO FREQUENCY ENGINEER Tony Mari MD LAB BLOOD ORDERABLES Final Result Performing Organization Address [facility] de Phone Number [address] [employer] [place] [address] * (ABNORMAL) Basic metabolic panel (03/21/2024 7:37 AM RADIO FREQUENCY ENGINEER) Sodium 130(L) 135 - 145 mmol/L Potassium, pl 5.0(H) 3.3 - 4.9 mmol/L [facility] Chloride 91(L) 97 - 110 mmol/L [facility] CO2 26 22 - 32 mmol/L [facility] Anion gap 13 2 - 15 mmol/L [facility] BUN 63(H) 6 - 25 mg/dL [facility] Creatinine 8.14(H) 0.80 - 1.30 mg/dL [facility] Glucose 227(H) 70 - 199 mg/dL [facility] Comment: Interpretive Data Fasting glucose >/= 126 mg/dl is diagnostic for diabetes. Fasting is defined as no caloric intake for at least 8 hours. Fasting glucose between 100 mg/dl to 125 mg/dl is diagnostic of prediabetes. In a patient with classic symptoms of hyperglycemia or hyperglycemic crisis, a random glucose >/= 200 mg/dl is diagnostic for diabetes. In the absence of unequivocal hyperglycemia, results should be confirmed by repeat testing. The classification and Diagnosis of Diabetes Diabetes Care 2021; 46: S19-S40. Current interpretive data was last revised 2022. Calcium 7.1(L) 8.5 - 10.3 mg/dL [facility] Blood 03/21/2024 7:37 AM RADIO FREQUENCY ENGINEER 03/21/2024 7:42 AM RADIO FREQUENCY ENGINEER us Ricki Mills MD LAB BLOOD ORDERABLES Final Result Performing Organization Address City/State/[facility] Co de Phone Number [facility] [address] [facility] Department [place] [address] * (ABNORMAL) Aerobic culture and gram stain Wound Foot, right (03/21/2024 1:40 AM RADIO FREQUENCY ENGINEER) Pathologist [facility] Direct Specimen Exam Stain: No polymorphonuclear leukocytes seen. Abundant Gram Positive Cocci Moderate Gram Positive Bacilli Comment:Testing performed by : [facility], [address] [place] [address], [place]., [address] Report Final Report: Abundant Enterococcus faecalis Moderate Mixed microorganisms. (.) [facility] Comment:Testing performed by : [facility], [address] [place]., [address] Organism MIXED MICROORGANISMS. JESSIE Organism ENTEROCOCCUS FAECALIS JESSIE Wound (Foot, right) 03/21/2024 1:40 AM RADIO FREQUENCY ENGINEER 03/21/2024 7:15 AM RADIO FREQUENCY ENGINEER Narrative JESSIE HILLS - 03/26/2024 7:14 AM RADIO FREQUENCY ENGINEER Specimen received on an ESwab. Testing performed by [facility] ([phone]) Specimens submitted from normally sterile body sites will have all bacterial morphotypes identified. Specimens that contain grossly mixed tracy and/or are from body sites that are not normally sterile will be examined for Staphylococcus aureus, Pseudomonas aeruginosa, beta-hemolytic strep, vancomycin-resistant Enterococcus and fungus. If any of these are isolated, the organism will be reported. Current interpretive data was last revised on 2016. Organism Antibiotic Method Susceptibility Enterococcus faecalis Ampicillin (ROVERTO) INTERPRETATIO N Susceptible Enterococcus faecalis Vancomycin (ROVERTO) INTERPRETATIO N Susceptible Enterococcus faecalis Linezolid (ROVERTO) INTERPRETATIO N Susceptible Enterococcus faecalis Doxycycline (ROVERTO) INTERPRETATIO N Resistant Carmen Graham MD LAB MICROBIOLOG Y - GENERAL ORDERABLES Final Result [facility] [address] [facility] Department [place] [address] * Blood culture Blood Peripheral (03/20/2024 7:13 PM RADIO FREQUENCY ENGINEER) Report Final Report: No growth Comment:Testing performed by : [facility], [address] [place]., [address] Blood (Peripheral) 03/20/2024 7:13 PM RADIO FREQUENCY ENGINEER 03/20/2024 9:49 PM RADIO FREQUENCY ENGINEER Narrative JESSIE - 03/25/2024 7:00 AM RADIO FREQUENCY ENGINEER From a different site than #1. Draw Blood cultures before administration of Antibiotics Collection->Peripheral 1. Blood cultures are incubated for 4 days on a continuously monitored blood culture system. The first report of a negative culture is issued within 24 hours of receipt of the specimen in the laboratory. 2. Positive culture results are reported as soon as they are detected. 3. The most important factor for detection of microbes in the setting of bloodstream infection is the volume of blood submitted for culture. Failure to collect an optimal blood volume can result in false negative blood cultures. 4. For pediatric patients, the recommended blood volume to collect follows a weight based strategy. See the electronic test catalog for collection instructions. 5. For positive blood cultures, a rapid molecular test may be performed for organism identification using the tyler ePlex blood culture identification panel for gram positive (BCID-GP) and gram negative (BCID-GN) organisms. This nucleic acid amplification test detects microbial DNA in positive blood culture broth. This assay has been cleared by the [place] Food and Drug Administration and its performance characteristics have been verified by the [facility]. For questions about this culture, contact the Microbiology Laboratory at [phone]. Interpretive data was last revised on 23. Sarah Donohue MD LAB MICROBIOLOGY - GEN ERAL ORDERABLES Final Result JESSIE [address] [facility] Department [place] [address] * (ABNORMAL) eGFR (03/20/2024 7:12 PM RADIO FREQUENCY ENGINEER) eGFR 10(L) >=60 mL/min/1. 73 m2 Comment: Interpretive Data Reference Interval Normal >/= 90 mL/min/1.73m2 Mildly decreased* 60 - 89 mL/min/1.73m2 Mildly to moderately decreased 45 - 59 mL/min/1.73m2 Moderately to severely decreased 30 - 44 mL/min/1.73m2 Severely decreased 15 - 29 mL/min/1.73m2 Kidney Failure < 15 mL/min/1.73m2 *Relative to young adult level Estimated glomerular filtration rate is determined by the 2020 CKD-EPI equation recommended by the National Kidney Foundation (A Unifying Approach to GFR Estimation: Recommendations of the NKF-ASK Task Force on Reassessing the Inclusion of Race in Diagnosing Kidney Disease, JASN 2020). The CKD-EPI equation should not be used for patients with unstable renal function and has not been validated in children and those over 70. Current interpretive data was last reviewed 2021. Blood 03/20/2024 7:12 PM RADIO FREQUENCY ENGINEER 03/20/2024 7:15 PM RADIO FREQUENCY ENGINEER Sarah Donohue MD LAB BLOOD ORDERABLES F inal Result Performing Organization Address [facility] Co de Phone Number [facility] [employer] [place] [address] * (ABNORMAL) Basic metabolic panel (03/20/2024 7:12 PM RADIO FREQUENCY ENGINEER) [facility] Sodium 133(L) 135 - 145 mmol/L Potassium, pl 4.6 3.3 - 4.9 mmol/L [facility] Chloride 93(L) 97 - 110 mmol/L [facility] CO2 25 22 - 32 mmol/L [facility] Anion gap 15 2 - 15 mmol/L [facility] BUN 50(H) 6 - 25 mg/dL [facility] Creatinine 6.69(H) 0.80 - 1.30 mg/dL [facility] Glucose 153 70 - 199 mg/dL [facility] Comment: Interpretive Data Fasting glucose >/= 126 mg/dl is diagnostic for diabetes. Fasting is defined as no caloric intake for at least 8 hours. Fasting glucose between 100 mg/dl to 125 mg/dl is diagnostic of prediabetes. In a patient with classic symptoms of hyperglycemia or hyperglycemic crisis, a random glucose >/= 200 mg/dl is diagnostic for diabetes. In the absence of unequivocal hyperglycemia, results should be confirmed by repeat testing. The classification and Diagnosis of Diabetes Diabetes Care 2021; 46: S19-S40. Current interpretive data was last revised 2022. Calcium 7.2(L) 8.5 - 10.3 mg/dL [facility] Blood 03/20/2024 7:12 PM RADIO FREQUENCY ENGINEER 03/20/2024 7:15 PM RADIO FREQUENCY ENGINEER Sarah Donohue MD LAB BLOOD ORDERABLES F inal Result Performing Organization Address [facility] Co de Phone Number [address] [employer] [place] [address] * (ABNORMAL) Blood culture Blood Peripheral (03/20/2024 7:11 PM RADIO FREQUENCY ENGINEER) Direct Specimen Exam Molecular Analysis: Staphylococcus epidermidis (methicillin-susce ptible) detected by tyler ePlex BCID-GP panel. Single positive culture may represent contamination. This test does not exclude the possibility of a mixed bacterial infection. Notification of: Staphylococcus epidermidis (methicillin-susce ptible) called to and read back by: Nikko Horton MLS [phone] on 03/21/2024 22:09:44 by: Elyse Daniel, [place] Test result called to and read back by ORTEGA Velazquez on 03/21/2024 22:15:42 by Nikko Villegas MLS Comment:Testing performed by : [facility], [address] [place] [address]., [address] Direct Specimen Exam Stain: Gram Positive Cocci in clusters Time to culture positivity (anaerobic media): 22.0 hours Notification of: Gram Positive Cocci in clusters called to and read back by: Hema BustosGAS UTILITY WORKER [phone] on 03/21/2024 20:19:58 by: Eugenia [email or web address] Test result called to and read back by Elian VIVAS [id number] on 03/21/242039 by [id number] [facility] Comment:Testing performed by : [facility], [address] [place] [address]., [address] Report Final Report: Staphylococcus epidermidis Single blood culture positive for this microorganism. Isolate is a possible contaminant. If a similar isolate is recovered from a second blood culture collected within 3 days of this culture, both will be evaluated and, if determined to be the same species, antimicrobial susceptibility testing will be performed. (.) [facility] Comment:Testing performed by : [address] [address] Organism STAPHYLOCOCCUS EPIDERMIDIS JESSIE HILLS Blood (Peripheral) 03/20/2024 7:11 PM RADIO FREQUENCY ENGINEER 03/20/2024 9:49 PM RADIO FREQUENCY ENGINEER Narrative JESSIE HILLS - 03/25/2024 10:18 AM RADIO FREQUENCY ENGINEER Draw Blood cultures before administration of Antibiotics Collection->Peripheral 1. Blood cultures are incubated for 4 days on a continuously monitored blood culture system. The first report of a negative culture is issued within 24 hours of receipt of the specimen in the laboratory. 2. Positive culture results are reported as soon as they are detected. 3. The most important factor for detection of microbes in the setting of bloodstream infection is the volume of blood submitted for culture. Failure to collect an optimal blood volume can result in false negative blood cultures. 4. For pediatric patients, the recommended blood volume to collect follows a weight based strategy. See the electronic test catalog for collection instructions. 5. For positive blood cultures, a rapid molecular test may be performed for organism identification using the tyler ePlex blood culture identification panel for gram positive (BCID-GP) and gram negative (BCID-GN) organisms. This nucleic acid amplification test detects microbial DNA in positive blood culture broth. This assay has been cleared by the [place] Food and Drug Administration and its performance characteristics have been verified by the [facility]. For questions about this culture, contact the Microbiology Laboratory at [phone]. Interpretive data was last revised on 23. us Sarah Donohue MD LAB MICROBIOLOGY - GEN ERAL ORDERABLES Final Result Performing Organization Address [facility] Co de Phone Number JESSIE [facility] [place] [address] * Potassium (03/20/2024 4:11 PM RADIO FREQUENCY ENGINEER) [facility] Potassium, pl 4.7 3.3 - 4.9 mmol/L Blood 03/20/2024 4:11 PM RADIO FREQUENCY ENGINEER 03/20/2024 4:22 PM RADIO FREQUENCY ENGINEER Royer Odom MD LAB BLOOD ORDERABLES Final Re sult Performing Organization Address City/[facility] Co de Phone Number [facility] [address] [facility] [employer] [place] [address] * XR Foot Right 3 or More Views (03/20/2024 1:30 PM RADIO FREQUENCY ENGINEER) Anatomical Region Laterality Modality Lower Extremities, Foot Right Computed Radiography 03/20/2024 1:42 PM RADIO FREQUENCY ENGINEER Narrative 03/20/2024 1:48 PM RADIO FREQUENCY ENGINEER EXAM DESCRIPTION: XR FOOT RIGHT 3 OR MORE VIEWS REASON FOR STUDY: Pain, Lower Extremity Injury or Trauma Pt referred to ED from wound clinic for possible gangrene to R 4th toe. Pt states noting wound x1 week ago. Pt also states N/V/D, onset today. Pt denies any abd pain. Pt states hx of P. Dialysis x5 days per week. Pt a/o x4. Pt actively dry heaving in triage. Pt presents in WC. TECHNIQUE: 3 radiographic view(s) of the right foot . COMPARISON: None FINDINGS: BONES/JOINTS: Chronic appearing deformity, cortical erosions and remodeling of the head of the metatarsals. The joint spaces are normal. SOFT TISSUES: Mild diffuse soft tissue swelling. There is a 7 mm radiopaque linear foreign object projecting over the 2nd-3rd interdigit web space. IMPRESSION: Chronic appearing deformity, cortical erosions and remodeling of the head of the metatarsals raises suspicion for osteomyelitis. Recommend further evaluation with MRI. 7 mm radiopaque linear foreign object projecting over the 2nd-3rd interdigit web space. Soft tissue swelling of the. THIS IS AN ELECTRONICALLY VERIFIED FINAL REPORT 03/20/2024 1:48 PM - Electronically signed by Hilda Pichardo M.D. FT T: Report ID: [id number] Reading Location: [place] [address] Procedure Note Hilda Constantino MD - 03/20/2024 EXAM DESCRIPTION: XR FOOT RIGHT 3 OR MORE VIEWS REASON FOR STUDY: Pain, Lower Extremity Injury or Trauma Pt referred to ED from wound clinic for possible gangrene to R 4th toe. Pt states noting wound x1 week ago. Pt also states N/V/D, onsettoday. Pt denies any abd pain. Pt states hx of P. Dialysis x5 days per week. Pt a/o x4. Pt actively dry heaving in triage. Pt presents in WC. TECHNIQUE: 3 radiographic view(s) of the right foot . COMPARISON: None FINDINGS: BONES/JOINTS: Chronic appearing deformity, cortical erosions and remodeling of the head of the metatarsals. The joint spaces are normal. SOFT TISSUES: Mild diffuse soft tissue swelling. There is a 7 mmradiopaque linear foreign object projecting over the 2nd-3rd interdigit web space. IMPRESSION: Chronic appearing deformity, cortical erosions and remodeling of the headof the metatarsals raises suspicion for osteomyelitis. Recommend further evaluation with MRI. 7 mm radiopaque linear foreign object projecting over the 2nd-3rdinterdigit web space. Soft tissue swelling of the. THIS IS AN ELECTRONICALLY VERIFIED FINAL REPORT 03/20/2024 1:48 PM - Electronically signed by Hilda Pichardo M.D. FT T: Report ID: [id number] Reading Location: [place] [address] us Sarah Donohue MD IMG XR PROCEDURES Nita l Result * (ABNORMAL) eGFR (03/20/2024 1:19 PM RADIO FREQUENCY ENGINEER) eGFR 6(L) >=60 mL/min/1. 73 m2 Comment: Interpretive Data Reference Interval Normal >/= 90 mL/min/1.73m2 Mildly decreased* 60 - 89 mL/min/1.73m2 Mildly to moderately decreased 45 - 59 mL/min/1.73m2 Moderately to severely decreased 30 - 44 mL/min/1.73m2 Severely decreased 15 - 29 mL/min/1.73m2 Kidney Failure < 15 mL/min/1.73m2 *Relative to young adult level Estimated glomerular filtration rate is determined by the 2020 CKD-EPI equation recommended by the National Kidney Foundation (A Unifying Approach to GFR Estimation: Recommendations of the NKF-ASK Task Force on Reassessing the Inclusion of Race in Diagnosing Kidney Disease, JASN 2020). The CKD-EPI equation should not be used for patients with unstable renal function and has not been validated in children and those over 70. Current interpretive data was last reviewed 2021. Blood 03/20/2024 1:19 PM RADIO FREQUENCY ENGINEER 03/20/2024 1:34 PM RADIO FREQUENCY ENGINEER us Sarah Donohue MD LAB BLOOD ORDERABLES F inal Result [facility] [address] [facility] Department [place] [address] * (ABNORMAL) Differential, auto (03/20/2024 1:19 PM RADIO FREQUENCY ENGINEER) Neutrophil abs 4.1 1.5 - 6.5 K/cumm Imm gran abs 0.0 0.0 - 0.1 K/cumm [facility] Lymphocyte abs 0.7(L) 0.8 - 3.3 K/cumm [facility] Monocyte abs 0.4 0.2 - 0.8 K/cumm [facility] Eosinophil abs 0.1 0.0 - 0.5 K/cumm [facility] Basophil abs 0.0 0.0 - 0.1 K/cumm [facility] Neutrophil pct 78.1 % [facility] Comment: Interpretive Data Percent cell count reference ranges are not reported, since discordance with absolute values may lead to misinterpretation of CBC data. Current Interpretive Data was last revised on 2017. Imm gran pct 0.2 % [facility] Comment: Interpretive Data Percent cell count reference ranges are not reported, since discordance with absolute values may lead to misinterpretation of CBC data. Current Interpretive Data was last revised on 2017. Lymphocyte pct 13.7 % [facility] Comment: Interpretive Data Percent cell count reference ranges are not reported, since discordance with absolute values may lead to misinterpretation of CBC data. Current Interpretive Data was last revised on 2017. Monocyte pct 7.0 % [facility] Comment: Interpretive Data Percent cell count reference ranges are not reported, since discordance with absolute values may lead to misinterpretation of CBC data. Current Interpretive Data was last revised on 2017. Eosinophil pct 1.0 % [facility] Comment: Interpretive Data Percent cell count reference ranges are not reported, since discordance with absolute values may lead to misinterpretation of CBC data. Current Interpretive Data was last revised on 2017. Basophil pct 0.0 % [facility] Comment: Interpretive Data Percent cell count reference ranges are not reported, since discordance with absolute values may lead to misinterpretation of CBC data. Current Interpretive Data was last revised on 2017. Blood 03/20/2024 1:19 PM RADIO FREQUENCY ENGINEER 03/20/2024 1:35 PM RADIO FREQUENCY ENGINEER Sarah Donohue MD LAB BLOOD ORDERABLES F inal Result Performing Organization Address City/[facility] Co de Phone Number JESSIE [address] [employer] [place] [address] * (ABNORMAL) CBC with auto differential (03/20/2024 1:19 PM RADIO FREQUENCY ENGINEER) [facility] WBC 5.3 3.8 - 9.9 K/cumm Hgb 8.1(L) 13.0 - 17.5 g/dL [facility] Hct 25.3(L) 38.9 - 50.3 % [facility] Plt 181 150 - 400 K/cumm [facility] MPV 10.0 9.1 - 12.3 fL [facility] RBC 3.07(L) 4.30 - 5.80 M/cumm [facility] MCV 82.4 81.3 - 96.4 fL [facility] MCH 26.4(L) 27.1 - 33.3 pg [facility] MCHC 32.0(L) 32.3 - 35.7 g/dL [facility] RDW CV 16.3(H) 11.1 - 14.9 % [facility] RDW SD 49.1(H) 35.7 - 48.1 fL [facility] NRBC abs 0.00 0.00 - 0.01 K/cumm [facility] Blood Venous blood specimen / Unknown 03/20/2024 1:19 PM RADIO FREQUENCY ENGINEER 03/20/2024 1:35 PM RADIO FREQUENCY ENGINEER us Sarah Donohue MD LAB BLOOD ORDERABLES F inal Result Performing Organization Address City/[facility]/ZIP Co de Phone Number [address] [employer] [place] [address] * Lipase (03/20/2024 1:19 PM RADIO FREQUENCY ENGINEER) [facility] Lipase 53 10 - 99 Units/L Blood 03/20/2024 1:19 PM RADIO FREQUENCY ENGINEER 03/20/2024 1:34 PM RADIO FREQUENCY ENGINEER us Sarah Donohue MD LAB BLOOD ORDERABLES F inal Result [facility] [address] [facility] Department [place] [address] * (ABNORMAL) Comprehensive metabolic panel (03/20/2024 1:19 PM RADIO FREQUENCY ENGINEER) Sodium 130(L) 135 - 145 mmol/L Potassium, pl 6.6(C) 3.3 - 4.9 mmol/L [facility] Comment:Critical Result call ed to and read back by [id number], DATE: 2024-03-20 14:11:46 BY: [id number] Chloride 91(L) 97 - 110 mmol/L [facility] CO2 24 22 - 32 mmol/L [facility] Anion gap 15 2 - 15 mmol/L [facility] BUN 87(H) 6 - 25 mg/dL [facility] Creatinine 10.10(H) 0.80 - 1.30 mg/dL [facility] Glucose 129 70 - 199 mg/dL [facility] Comment: Interpretive Data Fasting glucose >/= 126 mg/dl is diagnostic for diabetes. Fasting is defined as no caloric intake for at least 8 hours. Fasting glucose between 100 mg/dl to 125 mg/dl is diagnostic of prediabetes. In a patient with classic symptoms of hyperglycemia or hyperglycemic crisis, a random glucose >/= 200 mg/dl is diagnostic for diabetes. In the absence of unequivocal hyperglycemia, results should be confirmed by repeat testing. The classification and Diagnosis of Diabetes Diabetes Care 2021; 46: S19-S40. Current interpretive data was last revised 2022. Calcium 7.3(L) 8.5 - 10.3 mg/dL [facility] Bilirubin, total 0.6 0.1 - 1.2 mg/dL [facility] Protein, pl 6.9 6.5 - 8.5 g/dL [facility] Albumin 3.9 3.5 - 5.0 g/dL [facility] Alk phos 480(H) 40 - 130 Units/L [facility] ALT 13 7 - 55 Units/L [facility] AST 15 10 - 50 Units/L [facility] Blood Venous blood specimen / Unknown 03/20/2024 1:19 PM RADIO FREQUENCY ENGINEER 03/20/2024 1:34 PM RADIO FREQUENCY ENGINEER Sarah Donohue MD LAB BLOOD ORDERABLES F inal Result Performing Organization Address [facility] Co de Phone Number JESSIE [address] [place] [address] * (ABNORMAL) Troponin T high-sensitivity 6-hour (03/12/2024 10:56 PM RADIO FREQUENCY ENGINEER) Pathologist [facility] Trop T hs 136(H) <=22 ng/L Comment: Interpretive Data For further hscTnT resources including the diagnostic algorithm and an aid in interpretation, copy and paste this link: https://nrl.testcatalog.org/show/hsTrop Current Interpretive Data last revised 2020. Trop T hs interp Insignificant [facility] Blood 03/12/2024 10:5 6 PM RADIO FREQUENCY ENGINEER 03/12/2024 10:56 PM RADIO FREQUENCY ENGINEER us Marshall Naranjo MD LAB BLOOD ORDERABLES Fi nal Result Performing Organization Address [facility] Co de Phone Number [address] [place] [address] * Differential, auto (03/12/2024 10:56 PM RADIO FREQUENCY ENGINEER) Pathologist [facility] Neutrophil abs 2.3 1.5 - 6.5 K/cumm Imm gran abs 0.0 0.0 - 0.1 K/cumm [facility] Lymphocyte abs 0.8 0.8 - 3.3 K/cumm [facility] Monocyte abs 0.2 0.2 - 0.8 K/cumm [facility] Eosinophil abs 0.0 0.0 - 0.5 K/cumm [facility] Basophil abs 0.0 0.0 - 0.1 K/cumm [facility] Neutrophil pct 68.1 % [facility] Comment: Interpretive Data Percent cell count reference ranges are not reported, since discordance with absolute values may lead to misinterpretation of CBC data. Current Interpretive Data was last revised on 2017. Imm gran pct 0.3 % [facility] Comment: Interpretive Data Percent cell count reference ranges are not reported, since discordance with absolute values may lead to misinterpretation of CBC data. Current Interpretive Data was last revised on 2017. Lymphocyte pct 23.2 % [facility] Comment: Interpretive Data Percent cell count reference ranges are not reported, since discordance with absolute values may lead to misinterpretation of CBC data. Current Interpretive Data was last revised on 2017. Monocyte pct 6.9 % [facility] Comment: Interpretive Data Percent cell count reference ranges are not reported, since discordance with absolute values may lead to misinterpretation of CBC data. Current Interpretive Data was last revised on 2017. Eosinophil pct 1.2 % [facility] Comment: Interpretive Data Percent cell count reference ranges are not reported, since discordance with absolute values may lead to misinterpretation of CBC data. Current Interpretive Data was last revised on 2017. Basophil pct 0.3 % [facility] Comment: Interpretive Data Percent cell count reference ranges are not reported, since discordance with absolute values may lead to misinterpretation of CBC data. Current Interpretive Data was last revised on 2017. Blood 03/12/2024 10:5 6 PM RADIO FREQUENCY ENGINEER 03/12/2024 10:56 PM RADIO FREQUENCY ENGINEER us Marshall Naranjo MD LAB BLOOD ORDERABLES Fi nal Result [facility] [address] [facility] Department of Laboratories [place], [place] [id number] * (ABNORMAL) CBC with auto differential (03/12/2024 10:56 PM RADIO FREQUENCY ENGINEER) WBC 3.3(L) 3.8 - 9.9 K/cumm Hgb 9.9(L) 13.0 - 17.5 g/dL [facility] Hct 30.4(L) 38.9 - 50.3 % [facility] Plt 159 150 - 400 K/cumm [facility] MPV 9.3 9.1 - 12.3 fL [facility] RBC 3.71(L) 4.30 - 5.80 M/cumm [facility] MCV 81.9 81.3 - 96.4 fL [facility] MCH 26.7(L) 27.1 - 33.3 pg [facility] MCHC 32.6 32.3 - 35.7 g/dL [facility] RDW CV 15.9(H) 11.1 - 14.9 % [facility] RDW SD 48.0 35.7 - 48.1 fL [facility] NRBC abs 0.00 0.00 - 0.01 K/cumm [facility] Blood 03/12/2024 10:5 6 PM RADIO FREQUENCY ENGINEER 03/12/2024 10:56 PM RADIO FREQUENCY ENGINEER Reagan Hernandez MD LAB BLOOD ORDERABLES Final Result Performing Organization Address City/[facility]/ZIP Co de Phone Number [address] [place] [address] * Potassium (03/12/2024 7:15 PM RADIO FREQUENCY ENGINEER) Pathologist [facility] Potassium, pl 4.8 3.3 - 4.9 mmol/L Comment:Delta - Results Revi ewed Blood 03/12/2024 7:15 PM RADIO FREQUENCY ENGINEER 03/12/2024 7:17 PM RADIO FREQUENCY ENGINEER Louis Carmne MD LAB BLOOD ORDERABLES Final Resu lt Performing Organization Address [facility] Co de Phone Number [address] [place] [address] * (ABNORMAL) Troponin T high-sensitivity 2-hour (03/12/2024 6:58 PM RADIO FREQUENCY ENGINEER) Trop T hs 134(H) <=22 ng/L Comment: Interpretive Data For further hscTnT resources including the diagnostic algorithm and an aid in interpretation, copy and paste this link: https://nrl.testcatalog.org/show/hsTrop Current Interpretive Data last revised 2020. Trop T hs pct delta 1 % [facility] Trop T hs interp Insignificant [facility] Blood 03/12/2024 6:58 PM RADIO FREQUENCY ENGINEER 03/12/2024 7:02 PM RADIO FREQUENCY ENGINEER Marshall Naranjo MD LAB BLOOD ORDERABLES Fi nal Result Performing Organization Address [facility] Co de Phone Number JESSIE [address] [address] * (ABNORMAL) Troponin T high-sensitivity series (baseline, 2hr, 4hr, 6hr) (03/12/2024 4:56 PM RADIO FREQUENCY ENGINEER) Trop T hs 133(H) <=22 ng/L Comment: Interpretive Data For further hscTnT resources including the diagnostic algorithm and an aid in interpretation, copy and paste this link: https://nrl.testcatalog.org/show/hsTrop Current Interpretive Data last revised 2020. Blood 03/12/2024 4:56 PM RADIO FREQUENCY ENGINEER 03/12/2024 5:00 PM RADIO FREQUENCY ENGINEER Marshall Naranjo MD LAB BLOOD ORDERABLES Fi nal Result Performing Organization Address [facility] de Phone Number JESSIE [address] [address] * (ABNORMAL) eGFR (03/12/2024 4:56 PM RADIO FREQUENCY ENGINEER) eGFR 6(L) >=60 mL/min/1. 73 m2 Comment: Interpretive Data Reference Interval Normal >/= 90 mL/min/1.73m2 Mildly decreased* 60 - 89 mL/min/1.73m2 Mildly to moderately decreased 45 - 59 mL/min/1.73m2 Moderately to severely decreased 30 - 44 mL/min/1.73m2 Severely decreased 15 - 29 mL/min/1.73m2 Kidney Failure < 15 mL/min/1.73m2 *Relative to young adult level Estimated glomerular filtration rate is determined by the 2020 CKD-EPI equation recommended by the National Kidney Foundation (A Unifying Approach to GFR Estimation: Recommendations of the NKF-ASK Task Force on Reassessing the Inclusion of Race in Diagnosing Kidney Disease, JASN 2020). The CKD-EPI equation should not be used for patients with unstable renal function and has not been validated in children and those over 70. Current interpretive data was last reviewed 2021. Blood 03/12/2024 4:56 PM RADIO FREQUENCY ENGINEER 03/12/2024 5:00 PM RADIO FREQUENCY ENGINEER Marshall Naranjo MD LAB BLOOD ORDERABLES Fi nal Result Performing Organization Address City/[facility] Co de Phone Number [address] [employer] [place] [address] * (ABNORMAL) Phosphorus (03/12/2024 4:56 PM RADIO FREQUENCY ENGINEER) Phosphorus, pl 5.5(H) 2.3 - 4.5 mg/dL Blood 03/12/2024 4:56 PM RADIO FREQUENCY ENGINEER 03/12/2024 5:00 PM RADIO FREQUENCY ENGINEER Marshall Naranjo MD LAB BLOOD ORDERABLES Fi nal Result Performing Organization Address [facility] Co de Phone Number [address] [address] * Magnesium (03/12/2024 4:56 PM RADIO FREQUENCY ENGINEER) Pathologist [facility] Magnesium 2.2 1.4 - 2.5 mg/dL Blood 03/12/2024 4:56 PM RADIO FREQUENCY ENGINEER 03/12/2024 5:00 PM RADIO FREQUENCY ENGINEER Marshall Naranjo MD LAB BLOOD ORDERABLES Fi nal Result Performing Organization Address [facility] Co de Phone Number [address] [employer] [place] [address] * (ABNORMAL) Basic metabolic panel (03/12/2024 4:56 PM RADIO FREQUENCY ENGINEER) Sodium 130(L) 135 - 145 mmol/L Potassium, pl 7.4(C) 3.3 - 4.9 mmol/L [facility] Comment:Critical Result call ed to and read back by [email or web address], DATE: 2024-03-12 17:38:41 BY: [email or web address] Chloride 89(L) 97 - 110 mmol/L [facility] CO2 26 22 - 32 mmol/L [facility] Anion gap 15 2 - 15 mmol/L [facility] BUN 67(H) 6 - 25 mg/dL [facility] Creatinine 9.36(H) 0.80 - 1.30 mg/dL [facility] Glucose 337(H) 70 - 199 mg/dL [facility] Comment: Interpretive Data Fasting glucose >/= 126 mg/dl is diagnostic for diabetes. Fasting is defined as no caloric intake for at least 8 hours. Fasting glucose between 100 mg/dl to 125 mg/dl is diagnostic of prediabetes. In a patient with classic symptoms of hyperglycemia or hyperglycemic crisis, a random glucose >/= 200 mg/dl is diagnostic for diabetes. In the absence of unequivocal hyperglycemia, results should be confirmed by repeat testing. The classification and Diagnosis of Diabetes Diabetes Care 2021; 46: S19-S40. Current interpretive data was last revised 2022. Calcium 7.5(L) 8.5 - 10.3 mg/dL [facility] Blood 03/12/2024 4:56 PM RADIO FREQUENCY ENGINEER 03/12/2024 5:00 PM RADIO FREQUENCY ENGINEER Marshall Naranjo MD LAB BLOOD ORDERABLES Fi nal Result [facility] [address] [facility] Department [place] [address] * ECG 12 lead (03/12/2024 4:53 PM RADIO FREQUENCY ENGINEER) Pathologist [facility] Ventricular Rate EKG/Min 71 BPM [facility] Atrial Rate 71 BPM [facility] LA-Interval (MSEC) 208 ms [facility] QRS-Interval (MSEC) 126 ms [facility] QT-Interval (MSEC) 456 ms [facility] QTc 495 ms [facility] P [place] 43 degrees [facility] R [place] 29 degrees [facility] T [place] 50 degrees [facility] Diagnosis Normal sinus rhythm Non-specific intra-ventric ular conduction block Abnormal ECG Confirmed by RUCHI ZAFAR M.D. ([id number]) on 03/12/2024 5:47:06 PM [facility] 03/12/2024 4:53 PM RADIO FREQUENCY ENGINEER 03/12/2024 5:47 PM RADIO FREQUENCY ENGINEER Marshall Naranjo MD ECG ORDERABLES Final R esult [facility] * [facility] CRITICAL CARE ILL/INJURED PATIENT INIT 30-74 MIN (03/12/2024 4:30 PM RADIO FREQUENCY ENGINEER) Narrative Marshall Naranjo MD - 03/12/2024 4:30 PM RADIO FREQUENCY ENGINEER Marshall Naranjo MD 03/12/2024 8:00 PM Critical Care Performed by: Marshall Naranjo MD Authorized by: Marshall Naranjo MD Critical care provider statement: As reflected in the history, physical exam, orders, notes, and/or MDM, I was personally present while the patient was critically ill and provided critical care services for 30 minutes, excluding time involved in separately billable procedures. Critical care was necessary to treat or prevent imminent or life-threatening deterioration of the following condition(s): hyperkalemia management and acute electrolyte derangement Critical care was time spent by me providing the following: hyperkalemia medical management I provided emergent necessary critical care medicine services to this patient. I ordered and reviewed test results and/or imaging studies. I spent time discussing the management of this critically ill patient with consultants and the medical staff. I spent time documenting in the medical record. I admitted this patient to a continuous cardiac monitored bed. us Marshall Naranjo MD IN CLINIC/BEDSIDE ORDER [place] Final Result * (ABNORMAL) eGFR (02/28/2024 3:58 AM RADIO FREQUENCY ENGINEER) eGFR 9(L) >=60 mL/min/1. 73 m2 Comment: Interpretive Data Reference Interval Normal >/= 90 mL/min/1.73m2 Mildly decreased* 60 - 89 mL/min/1.73m2 Mildly to moderately decreased 45 - 59 mL/min/1.73m2 Moderately to severely decreased 30 - 44 mL/min/1.73m2 Severely decreased 15 - 29 mL/min/1.73m2 Kidney Failure < 15 mL/min/1.73m2 *Relative to young adult level Estimated glomerular filtration rate is determined by the 2020 CKD-EPI equation recommended by the National Kidney Foundation (A Unifying Approach to GFR Estimation: Recommendations of the NKF-ASK Task Force on Reassessing the Inclusion of Race in Diagnosing Kidney Disease, JASN 2020). The CKD-EPI equation should not be used for patients with unstable renal function and has not been validated in children and those over 70. Current interpretive data was last reviewed 2021. Blood 02/28/2024 3:58 AM RADIO FREQUENCY ENGINEER 02/28/2024 4:06 AM RADIO FREQUENCY ENGINEER Jerri Ferrer MD LAB BLOOD ORDERABLES Final Result [place] [id number] [facility] Department [place] [address] * Differential, auto (02/28/2024 3:58 AM RADIO FREQUENCY ENGINEER) Pathologist [facility] Neutrophil abs 2.0 1.5 - 6.5 K/cumm Imm gran abs 0.0 0.0 - 0.1 K/cumm [facility] Lymphocyte abs 0.8 0.8 - 3.3 K/cumm [facility] Monocyte abs 0.4 0.2 - 0.8 K/cumm [facility] Eosinophil abs 0.0 0.0 - 0.5 K/cumm [facility] Basophil abs 0.0 0.0 - 0.1 K/cumm [facility] Neutrophil pct 61.8 % [facility] Comment: Interpretive Data Percent cell count reference ranges are not reported, since discordance with absolute values may lead to misinterpretation of CBC data. Current Interpretive Data was last revised on 2017. Imm gran pct 0.3 % [facility] Comment: Interpretive Data Percent cell count reference ranges are not reported, since discordance with absolute values may lead to misinterpretation of CBC data. Current Interpretive Data was last revised on 2017. Lymphocyte pct 25.5 % [facility] Comment: Interpretive Data Percent cell count reference ranges are not reported, since discordance with absolute values may lead to misinterpretation of CBC data. Current Interpretive Data was last revised on 2017. Monocyte pct 11.2 % [facility] Comment: Interpretive Data Percent cell count reference ranges are not reported, since discordance with absolute values may lead to misinterpretation of CBC data. Current Interpretive Data was last revised on 2017. Eosinophil pct 0.9 % [facility] Comment: Interpretive Data Percent cell count reference ranges are not reported, since discordance with absolute values may lead to misinterpretation of CBC data. Current Interpretive Data was last revised on 2017. Basophil pct 0.3 % [facility] Comment: Interpretive Data Percent cell count reference ranges are not reported, since discordance with absolute values may lead to misinterpretation of CBC data. Current Interpretive Data was last revised on 2017. Blood 02/28/2024 3:58 AM RADIO FREQUENCY ENGINEER 02/28/2024 4:06 AM RADIO FREQUENCY ENGINEER Jerri Ferrer MD LAB BLOOD ORDERABLES Final Result Performing Organization Address City/[facility]/ZIP Co de Phone Number [facility] [address] [employer] [place], [place] [id number] * (ABNORMAL) Thyroid Function [place] (02/28/2024 3:58 AM RADIO FREQUENCY ENGINEER) Pathologist [facility] TSH 19.50(H) 0.30 - 4.20 mcIUnit/mL Blood 02/28/2024 3:58 AM RADIO FREQUENCY ENGINEER 02/28/2024 4:06 AM RADIO FREQUENCY ENGINEER Jerri Ferrer MD LAB BLOOD ORDERABLES Final Result [address] [employer] [place] [address] * (ABNORMAL) CBC with auto differential (02/28/2024 3:58 AM RADIO FREQUENCY ENGINEER) WBC 3.2(L) 3.8 - 9.9 K/cumm Hgb 8.4(L) 13.0 - 17.5 g/dL [facility] Hct 26.9(L) 38.9 - 50.3 % [facility] Plt 140(L) 150 - 400 K/cumm [facility] MPV 10.2 9.1 - 12.3 fL [facility] RBC 3.11(L) 4.30 - 5.80 M/cumm [facility] MCV 86.5 81.3 - 96.4 fL [facility] MCH 27.0(L) 27.1 - 33.3 pg [facility] MCHC 31.2(L) 32.3 - 35.7 g/dL [facility] RDW CV 17.0(H) 11.1 - 14.9 % [facility] RDW SD 52.8(H) 35.7 - 48.1 fL [facility] NRBC abs 0.00 0.00 - 0.01 K/cumm [facility] Blood 02/28/2024 3:58 AM RADIO FREQUENCY ENGINEER 02/28/2024 4:06 AM RADIO FREQUENCY ENGINEER Jerri Ferrer MD LAB BLOOD ORDERABLES Final Result Performing Organization Address [facility] de Phone Number [address] [employer] [place] [address] * (ABNORMAL) T4, free (02/28/2024 3:58 AM RADIO FREQUENCY ENGINEER) [facility] Free T4 0.60(L) 0.90 - 1.70 ng/dL Blood 02/28/2024 3:58 AM RADIO FREQUENCY ENGINEER 02/28/2024 4:06 AM RADIO FREQUENCY ENGINEER Narrative [facility] - 02/28/2024 6:07 AM RADIO FREQUENCY ENGINEER This test was reflexed from a TSH result. Jerri Ferrer MD LAB BLOOD ORDERABLES Final Result Performing Organization Address [place]/[facility] Co de Phone Number [address] [employer] [place], [place] [id number] * (ABNORMAL) Phosphorus (02/28/2024 3:58 AM RADIO FREQUENCY ENGINEER) Phosphorus, pl 6.4(H) 2.3 - 4.5 mg/dL Blood 02/28/2024 3:58 AM RADIO FREQUENCY ENGINEER 02/28/2024 4:06 AM RADIO FREQUENCY ENGINEER Jerri Ferrer MD LAB BLOOD ORDERABLES Final Result Performing Organization Address [facility] Co de Phone Number [address] [address] * Magnesium (02/28/2024 3:58 AM RADIO FREQUENCY ENGINEER) Magnesium 2.0 1.4 - 2.5 mg/dL Blood 02/28/2024 3:58 AM RADIO FREQUENCY ENGINEER 02/28/2024 4:06 AM RADIO FREQUENCY ENGINEER Juan Carlos Saunders NP LAB BLOOD ORDERABLES Fin al Result Performing Organization Address [facility] de Phone Number [address] [address] * (ABNORMAL) Hemoglobin A1c (02/28/2024 3:58 AM RADIO FREQUENCY ENGINEER) Hgb A1C 6.5(H) 4.0 - 5.6 % Estimated Average Glucose 140 mg/dL [facility] Comment: The ADA recommends reporting an estimated Average Glucose (eAG) with all Hemoglobin A1c results using the equation derived from a study of 507 normal and diabetic adults. Minority populations were underrepresented and children were not included. (Diabetes Care 31:9636-5980, 2008). The eAG is not equivalent to a fasting glucose. Blood 02/28/2024 3:58 AM RADIO FREQUENCY ENGINEER 02/28/2024 4:06 AM RADIO FREQUENCY ENGINEER Jerri Ferrer MD LAB BLOOD ORDERABLES Final Result Performing Organization Address [facility] Co de Phone Number [address] [employer] [place] [address] * (ABNORMAL) Basic metabolic panel (02/28/2024 3:58 AM RADIO FREQUENCY ENGINEER) Sodium 135 135 - 145 mmol/L Potassium, pl 4.7 3.3 - 4.9 mmol/L [facility] Chloride 92(L) 97 - 110 mmol/L [facility] CO2 29 22 - 32 mmol/L [facility] Anion gap 14 2 - 15 mmol/L [facility] BUN 61(H) 6 - 25 mg/dL [facility] Creatinine 7.18(H) 0.80 - 1.30 mg/dL [facility] Glucose 97 70 - 199 mg/dL [facility] Comment: Interpretive Data Fasting glucose >/= 126 mg/dl is diagnostic for diabetes. Fasting is defined as no caloric intake for at least 8 hours. Fasting glucose between 100 mg/dl to 125 mg/dl is diagnostic of prediabetes. In a patient with classic symptoms of hyperglycemia or hyperglycemic crisis, a random glucose >/= 200 mg/dl is diagnostic for diabetes. In the absence of unequivocal hyperglycemia, results should be confirmed by repeat testing. The classification and Diagnosis of Diabetes Diabetes Care 202; 46: S19-S40. Current interpretive data was last revised 2022. Calcium 7.1(L) 8.5 - 10.3 mg/dL [facility] Blood 02/28/2024 3:58 AM RADIO FREQUENCY ENGINEER 02/28/2024 4:06 AM RADIO FREQUENCY ENGINEER us Jerri Ferrer MD LAB BLOOD ORDERABLES Final Result [facility] [address] [facility] Department [place] [address] * Hepatitis B surface antibody (immune status) Blood (02/27/2024 4:30 PM RADIO FREQUENCY ENGINEER) [facility] HBsAb (immune status) Reactive Comment: Interpretive Data Nonreactive: This result is consistent with a lack of immunity to Hepatitis B Virus when used in the setting of routine screening. Equivocal: The immune status of the individual should be further assessed, if appropriate, after consideration of clinical status, risk factors, and additional diagnostic information. Reactive: This result is consistent with immunity to Hepatitis B Virus when used in the setting of routine screening. Current interpretive data was last revised on 19. HBsAb (immune status) index 209.0 mIUnits/m L [facility] Blood 02/27/2024 4:30 PM RADIO FREQUENCY ENGINEER 02/27/2024 4:50 PM RADIO FREQUENCY ENGINEER Alexey Blood MD LAB MICROBIOLOGY - GENERAL ORDERABLES Final Result Performing Organization Address [facility] de Phone Number [address] [employer] [place] [address] * Hepatitis B Surface Antigen Blood (02/27/2024 4:30 PM RADIO FREQUENCY ENGINEER) [facility] HepBsAg Nonreactive Nonreactive Blood 02/27/2024 4:30 PM RADIO FREQUENCY ENGINEER 02/27/2024 4:50 PM RADIO FREQUENCY ENGINEER Alexey Blood MD LAB MICROBIOLOGY - GENERAL ORDERABLES Final Result Performing Organization Address [facility] Phone Number [address] [address] * Potassium (02/27/2024 4:30 PM RADIO FREQUENCY ENGINEER) [facility] Potassium, pl 3.9 3.3 - 4.9 mmol/L Blood 02/27/2024 4:30 PM RADIO FREQUENCY ENGINEER 02/27/2024 4:50 PM RADIO FREQUENCY ENGINEER Alexey Blood MD LAB BLOOD ORDERABLES Final Result Performing Organization Address [facility] de Phone Number [address] [address] * POCT glucose (02/27/2024 3:37 PM RADIO FREQUENCY ENGINEER) [facility] Glucose, POC 150 70 - 199 mg/dL Blood 02/27/2024 3:37 PM RADIO FREQUENCY ENGINEER 02/27/2024 3:37 PM RADIO FREQUENCY ENGINEER Jerri Ferrer MD LAB POCT ORDERABLES - DEVICE Final Result [facility] [address] [facility] Department [place] [address] * XR Outside Reference (02/27/2024 9:15 AM RADIO FREQUENCY ENGINEER) Narrative JOSE C_MHE - 03/06/2024 9:14 AM RADIO FREQUENCY ENGINEER This order has been auto-finalized and does not contain a result. us Provider Transcribed Order IMG XR PROCEDURES Fin al Result Performing Organization Address [facility] Co de Phone Number [email or web address] * XR Outside Reference (02/26/2024 4:40 PM RADIO FREQUENCY ENGINEER) Narrative JOSE C_MHE - 03/06/2024 9:14 AM RADIO FREQUENCY ENGINEER This order has been auto-finalized and does not contain a result. us Provider Transcribed Order IMG XR PROCEDURES Fin al Result Performing Organization Address [facility] Co de Phone Number [email or web address] * (ABNORMAL) Lipid panel (11/14/2023 5:38 AM CDT) Cholesterol 103 30 - 199 mg/dL Comment: Interpretive Data Ages < or = 19 years Acceptable: <170 mg/dL Borderline high: 170-199 mg/dL High: >or= 200 mg/dL Ages > or = 20 years Desirable: <200 mg/dL Borderline high: 200-239 mg/dL High: >or= 240 mg/dL Literature References: 1. Expert Panel on Integrated Guidelines for Cardiovascular Health and Risk Reduction in Children and Adolescents. Pediatrics 2011;128:S213 2. NCEP Expert Panel. Circulation 2004;110:227 Current Interpretive Data was last revised on 2017. Triglycerides 176(H) <=149 mg/dL [facility] Comment: Interpretive Data Ages < or = 9 years Acceptable: <75 mg/dL Borderline high: 75-99 mg/dL High: >or= 100 mg/dL Ages 10 to 20 years Acceptable: <90 mg/dL Borderline high: 90-129 mg/dL High: >or= 130 mg/dL Ages > or = 20 years Desirable: <150 mg/dL Borderline high: 150-199 mg/dL High: 200-499 mg/dL Very high: >or= 499 mg/dL Literature References: 1. Expert Panel on Integrated Guidelines for Cardiovascular Health and Risk Reduction in Children and Adolescents. Pediatrics 2011;128:S213 2. NCEP Expert Panel. Circulation 2004;110:227 Current Interpretive Data was last revised on 2017. HDL 24(L) >=40 mg/dL [facility] Comment: Interpretive Data Ages < or = 19 years Acceptable: >45 mg/dL Borderline low: 40-45 mg/dL Low: <40 mg/dL Ages > or = 20 years Desirable: >or= 60 mg/dL Low: <40 mg/dL Literature References: 1. Expert Panel on Integrated Guidelines for Cardiovascular Health and Risk Reduction in Children and Adolescents. Pediatrics 2011;128:S213 2. NCEP Expert Panel. Circulation 2004;110:227 Current Interpretive Data was last revised on 2017. LDL, calculated 49 <=129 mg/dL [facility] Comment: Interpretive Data Ages < or = 19 years Acceptable: <110 mg/dL Borderline high: 110-129 mg/dL High: >or= 130 mg/dL Ages > or = 20 years Optimal: <100 mg/dL Near optimal: 100-129 mg/dL Borderline high: 130-159 mg/dL High: >160 mg/dL Calculated using the Miguelito LDL-C estimating equation. This equation was implemented on 2023. Prior to this date LDL-C was estimated using the Friedewald equation. Literature References: 1. Expert Panel on Integrated Guidelines for Cardiovascular Health and Risk Reduction in Children and Adolescents. Pediatrics 2011;128:S213 2. NCEP Expert Panel. Circulation 2004;110:227 3. Miguelito Askew al. BRYON Cardiol. 2020 July 03;5(5):540-548. doi: [email or web address] Current Interpretive Data was last revised on 2023. Non-HDL Cholesterol 79 mg/dL [facility] Comment: Interpretive Data Ages < or = 19 years Acceptable: <120 mg/dL Borderline high: 120-144 mg/dL High: >145 mg/dL Ages > or = 20 years When triglycerides are >200 mg/dL, Non-HDL cholesterol is a secondary target of therapy with treatment goals that are 30 mg/dL greater than the LDL cholesterol target. Literature References: 1. Expert Panel on Integrated Guidelines for Cardiovascular Health and Risk Reduction in Children and Adolescents. Pediatrics 2011;128:S213 2. NCEP Expert Panel. Circulation 2004;110:227 Current Interpretive Data was last revised on 2017. Chol/HDL ratio 4 [facility] Blood 11/14/2023 5:38 AM CDT 11/14/2023 5:42 AM CDT us Kang Lyles MD LAB BLOOD ORDERABLES Final R esult [facility] [address] [facility] Department [place] [address] from Last 3 Months or Most Recently Relevant to Health Maintenance
--- OUTSIDE RECORDS SUMMARY | 2024-05-23 12:55 | XMS_ITS | Clinical Summary ---
Author Organization [facility] Address [address] [place] [address] Care Team Providers Care Gas Plant Repairer Name Role Phone Sundar Chisholm DO Primary Care Provider Marcus Florence MD Unavailable [phone] Ricki Mills MD Unavailable [phone] Allergies Active Allergy Reactions Criticality Noted Date [...] 1 tablet (50 mcg total) by mouth hardware supplies sales representative before breakfast 90 tablet 3 04/04/19 25 [...] TMA. Assessment & Plan (05/09/2024 9:11 AM AOC OPERATIONS INTELLIGENCE CHIEF): Impression: Patient is status post right TMA [...] 03/20/2024 Assessment & Plan (04/30/2024 3:53 PM AOC OPERATIONS INTELLIGENCE CHIEF): Status post right TMA on 03/31/2024 for [...] daniel with type 2 diabetes mellitus 04/20/2015 Resolved Problems Problem Noted Date Diagnosed Date Resolved Date Blurring of visual image 04/20/201512/2023 Encounters Date Type Department Care Team Description 05/21/2024 11:15 AM CDT Office Visit [facility] Medical [facility] Vascular and Vein Surgery [address] [place] [address] [place] [phone] Anjali Kline NP 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) (Primary Dx) 05/07/2024 11:15 AM AOC OPERATIONS INTELLIGENCE CHIEF Office Visit [facility] Medical [facility] Vascular and Vein Surgery [address] [place] [address] [place] [phone] Tiki Birch NP 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) (Primary Dx) 04/30/2024 11:15 AM AOC OPERATIONS INTELLIGENCE CHIEF Office Visit [facility] Vascular and Vein Surgery [address] [place] [phone] Anjali Kline NP Dry gangrene (HCC) (Primary Dx) 04/17/2024 10:30 AM AOC OPERATIONS INTELLIGENCE CHIEF Office Visit [facility] Vascular and Vein Surgery [address] [place] [phone] Tabatha Pearl PA 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) (Primary Dx); Paroxysmal atrial fibrillation (HCC); Mixed hyperlipidemia; Essential (primary) hypertension; Type 2 diabetes mellitus with chronic kidney disease on chronic dialysis, with long-term current use of insulin ([facility]); ESRD (end stage renal disease) on dialysis ([facility]) 04/08/2024 Telephone [facility] Vascular and Vein Surgery [address] [place] [phone] Maria Guadalupe Casey 04/07/2024 Documentation [facility] Vascular and Vein Surgery [address] [place] [phone] Dominga Christian MA 03/31/2024 11:30 AM [facility] - 03/31/2024 1:05 PM AOC OPERATIONS INTELLIGENCE CHIEF Surgery [facility] OR [address] [place] [phone] Ricki Mills MD RIGHT TRANSMETATARSAL AMPUTATION 03/31/2024 11:29 AM AOC OPERATIONS INTELLIGENCE CHIEF Anesthesia Event [facility] OR [address] [place] [phone] Luis Alberto Lowe MD Jones, Alexis, CRNA 03/25/2024 8:00 AM [facility] - 03/25/2024 9:00 AM AOC OPER[employer] INTELLIGENCE CHIEF Surgery [facility] Cardiac [employer] [address] [place] [phone] Ricki Mills MD ANGIOGRAPHY - UNILATERAL EXTREMITY S&I [id number] 03/20/2024 2:02 PM AOC OPERATIONS INTELLIGENCE CHIEF - 04/04/2024 2:29 PM AOC OPERATIONS INTELLIGENCE CHIEF Hospital Encounter [facility] [address] [address] Sarah Donohue MD Sada, MD Julee Ashley Dany Jose, MD Singh, Anjanya Devendra, MD Nyquist, David J., MD Osteomyelitis of fourth toe of right foot (HCC) (Primary Dx); Dry gangrene (HCC); Hyperkalemia; End stage renal disease (HCC); ESRD on hemodialysis (CMS/HCC) (HCC) [N18.6, Z99.2]; Type 2 diabetes mellitus with chronic kidney disease on chronic dialysis, with long-term current use of insulin ([facility]) [E11.22, N18.6, Z99.2, Z79.4]; Gangrene (HCC); Generalized weakness; S/P transmetatarsal amputation of foot, right (HCC); Anemia, unspecified type Discharge Disposition: Discharge to home or self care 03/12/2024 4:28 PM [employer]OC OPERATIONS INTELLIGENCE CHIEF - 03/13/2024 2:05 PM AOC OPERATIONS INTELLIGENCE CHIEF Hospital Encounter [facility] [address] [address] Marshall Naranjo MD Ogbuagu, MD Giuseppe Cruz Mahmud Mustafa, MD Hyperkalemia (Primary Dx); ESRD (end stage renal disease) ([facility]); Nausea; Weakness; Hyperphosphatemia; ESRD on hemodialysis (HCC); Generalized weakness Discharge Disposition: Discharge to home or self care 02/27/2024 2:30 PM [employer] OPERATIONS INTELLIGENCE CHIEF - 02/28/2024 5:30 PM AOC OPERATIONS INTELLIGENCE CHIEF Hospital Encounter [facility] [address] [phone] Inocencia Fair MD Yaganti, Srinivasarao C., MD Saravanan, Pathanjali, MD ESRD on hemodialysis ([facility]) (Primary Dx); Hyperkalemia; Hyponatremia; Essential (primary) hypertension; Type 1 diabetes mellitus with hyperglycemia (HCC); Chronic diastolic congestive heart failure (HCC); Chronic stable angina; Mixed hyperlipidemia; Acquired hypothyroidism; Paroxysmal atrial fibrillation (HCC) Discharge Disposition: Discharge to home or self care 02/27/2024 9:15 AM [employer]OC OPERATIONS INTELLIGENCE CHIEF - 02/27/2024 11:59 PM AOC OPERATIONS INTELLIGENCE CHIEF Hospital Encounter [facility] [employer] [address] [place] [address] Discharge Disposition: Discharge to home or self care 02/26/2024 4:40 PM [employer]OC OPERATIONS INTELLIGENCE CHIEF - 02/26/2024 11:59 PM AOC OPERATIONS INTELLIGENCE CHIEF Hospital Encounter [facility] [employer] [address] [place] [address] Discharge Disposition: Discharge to home or self care from Last 3 Months Surgical History Surgery Date Site/Laterality Comments BACK SURGERY 03/05/2017 - 03/04/2018 AV FISTULA PLACEMENT 03/05/2014 - 03/04/2015 TOE AMPUTATION 03/05/2013 - 03/04/2014 Left pinky toe EYE SURGERY 03/05/2014 - 03/04/2015 Bilateral vessel repair FOOT AMPUTATION THROUGH METATARSAL 03/31/2024 Right RT TMA; Dr. Ricki Mills Medical History Medical History Date Comments ESRD (end stage renal disease) (HCC) Hyperlipidemia Hypertension Atrial fibrillation (HCC) Diabetes mellitus (HCC) Thyroid disease CHF (congestive heart failure) (HCC) Family History Medical History Relation Name Comments Cancer Father Heart disease Father Hypertension Father Diabetes Maternal Grandfather Cancer Mother Diabetes Mother Heart disease Mother Hypertension Mother Kidney disease Mother Cancer Paternal Grandfather Diabetes Paternal Grandfather Heart disease Paternal Grandfather Hypertension Paternal Grandfather Relation Name Status Comments Father Maternal Grandfather Mother Paternal Grandfather Social History Tobacco Use Types Packs/Day Years Used Date Smoking Tobacco: Never Smokeless Tobacco: Never Tobacco Cessation:Counseling Given: Not Answered [employer] Answer Date Recorded In the past 12 months has [employer], [employer], or water [employer] threatened to shut off services in your [...] week 03/21/2024 How often do you attend [facility] or [facility] services? Never 03/21/2024 Do you belong to any clubs o r organizations such as taoist groups, unions, fraternal or athletic groups, or [...] any time in the past 12 m [facility], were you homeless or living in a half-way (including now)? No 03/21/2024 Personal Safety Answer Date Recorded Have you ever been in or are you currently in a harmful physical or emotional relationship or is someone making you feel afraid or unsafe? Denies 03/25/2024 Sex and Gender Information Value Date Recorded Sex Assigned at Not on file Legal Sex Male 10:28 AM AOC OPERATIONS INTELLIGENCE CHIEF Gender Identity Not on file Sexual Orientation Not on file Obstetrics History Last Filed Vital Signs Vital Sign Reading Time Taken Comments Blood Pressure 170/92 05/21/2024 10:57 AM CDT Pulse 83 05/21/2024 10:57 AM CDT Temperature 37 C (98.6 F) 04/04/2024 1:34 PM AOC OPERATIONS INTELLIGENCE CHIEF Respiratory Rate 16 04/04/2024 11:48 AM AOC OPERATIONS INTELLIGENCE CHIEF Oxygen Saturation 97% 04/04/2024 11:48 AM AOC OPERATIONS INTELLIGENCE CHIEF Inhaled Oxygen Concentration - - Weight 99.8 kg (220 lb) 05/21/2024 10:57 AM CDT Height 182.9 cm (6') 05/21/2024 10:57 AM CDT Body Mass Index 29.84 05/21/2024 10:57 AM CDT Plan of Treatment Health Maintenance Due Date Last Done Comments Albumin Creatinine Ratio, Urine 1978 Colon Cancer Screening-Colonoscopy 1978 Foot Exam 1978 Hepatitis C Screening 1978 Dilated Eye Exam 02/24/1988 Hepatitis B Screening 02/24/1996 Regular Well Visit/Exam 18-64 02/24/1996 Pneumococcal vaccine <65 (2 of 2 - PCV) 09/20/2023 09/19/2022 Influenza Vaccine (#1) 2023 Hemoglobin A1C 08/28/2024 02/28/2024, 11/13/2023 Lipid Panel 11/13/2024 11/14/2023, 08/03, 04/18/2015, Additional history exists Depression Screening 03/20/2025 03/20/2024, 03/20/2024, 12/07/2023 TSH Level 03/21/2025 03/21/2024, 02/03, 11/15/2023 eGFR 04/04/2025 04/04/2024, 03/07, 04/02/2024, Additional history exists DTaP/Tdap/Td Vaccine (2 - Td or Tdap) 05/25/2032 05/25/2022 HPV Vaccines Aged Out No longer eligi ble based on patient's age to complete this topic Medical Devices Implanted Type Area Coding Assistant Device Identifier Shelf Expiration Date Model / Serial / Lot [employer] Zilver Ptx 6mm 80mm 125cm Drug Elute Otw Delivery System [id number] - [id number] Implanted:Qty: 1 on 03/25/2024 by Ricki Mills MD at [facility] Right: Groin [employer] [id number] 09/11/2025 [id number] / / [id number] [employer] V[employer] System Closure Repair Femoral Artery Suture Mediated Perclose Prostyle 28392-59 - [id number] Implanted:Qty: 1 on 03/25/2024 by Ricki Mills MD at [facility] Right: Groin [employer] 12/02/2025 [id number] / / [id number] Procedures Procedure Name Priority Date/Time Associated Diagnosis Comments TRANSFUSE RED BLOOD CELLS Timed 04/04/2024 11:28 AM AOC OPERATIONS INTELLIGENCE CHIEF PREPARE RBC Timed 04/04/2024 10:08 AM AOC OPERATIONS INTELLIGENCE CHIEF EGFR Routine 04/04/2024 7:35 AM AOC OPERATIONS INTELLIGENCE CHIEF DIFFERENTIAL AUTO Routine 04/04/2024 7:3 5 AM AOC OPERATIONS INTELLIGENCE CHIEF CRP (ACUTE PHASE) Routine 04/04/2024 7:3 5 AM AOC OPERATIONS INTELLIGENCE CHIEF BASIC METABOLIC PANEL Routine 04/04/2024 7:35 AM AOC OPERATIONS INTELLIGENCE CHIEF CBC WITH AUTO DIFFERENTIAL Routine 04/04/2024 7:35 AM AOC OPERATIONS INTELLIGENCE CHIEF CROSSMATCH Timed 04/03/2024 3:37 PM AOC OPERATIONS INTELLIGENCE CHIEF DIFFERENTIAL AUTO Timed 04/03/2024 3:3 7 PM AOC OPERATIONS INTELLIGENCE CHIEF ANTIBODY SCREEN Timed 04/03/2024 3:37 PM AOC OPERATIONS INTELLIGENCE CHIEF ABO/RH Timed 04/03/2024 3:37 PM AOC OPERATIONS INTELLIGENCE CHIEF TYPE AND SCREEN Timed 04/03/2024 3:37 PM AOC OPERATIONS INTELLIGENCE CHIEF CBC WITH AUTO DIFFERENTIAL Timed 04/03/2024 3:37 PM AOC OPERATIONS INTELLIGENCE CHIEF HEMODIALYSIS Routine 04/03/2024 9:15 AM AOC OPERATIONS INTELLIGENCE CHIEF CRP (ACUTE PHASE) Routine 04/03/2024 8:0 0 AM AOC OPERATIONS INTELLIGENCE CHIEF HAPTOGLOBIN Routine 04/03/2024 8:00 AM AOC OPERATIONS INTELLIGENCE CHIEF EGFR Routine 04/03/2024 8:00 AM AOC OPERATIONS INTELLIGENCE CHIEF DIFFERENTIAL AUTO Routine 04/03/2024 8:0 0 AM AOC OPERATIONS INTELLIGENCE CHIEF BASIC METABOLIC PANEL Routine 04/03/2024 8:00 AM AOC OPERATIONS INTELLIGENCE CHIEF CBC WITH AUTO DIFFERENTIAL Routine 04/03/2024 8:00 AM AOC OPERATIONS INTELLIGENCE CHIEF EGFR Routine 04/02/2024 2:15 PM AOC OPERATIONS INTELLIGENCE CHIEF DIFFERENTIAL AUTO Routine 04/02/2024 2:1 5 PM AOC OPERATIONS INTELLIGENCE CHIEF VITAMIN D 25 HYDROXY Timed 04/02/2024 2:15 PM AOC OPERATIONS INTELLIGENCE CHIEF VITAMIN B12 Timed 04/02/2024 2:15 PM AOC OPERATIONS INTELLIGENCE CHIEF FOLATE Timed 04/02/2024 2:15 PM AOC OPERATIONS INTELLIGENCE CHIEF BASIC METABOLIC PANEL Routine 04/02/2024 2:15 PM AOC OPERATIONS INTELLIGENCE CHIEF CBC WITH AUTO DIFFERENTIAL Routine 04/02/2024 2:15 PM AOC OPERATIONS INTELLIGENCE CHIEF US VEIN DUPLEX LOWER EXTREMITY RIGHT LIMITED IP Routine 04/01/2024 3:45 PM AOC OPERATIONS INTELLIGENCE CHIEF BUN STAT 04/01/2024 12:41 PM AOC OPERATIONS INTELLIGENCE CHIEF PTH Routine 04/01/2024 10:05 AM AOC OPERATIONS INTELLIGENCE CHIEF EGFR Routine 04/01/2024 9:32 AM AOC OPERATIONS INTELLIGENCE CHIEF DIFFERENTIAL AUTO Routine 04/01/2024 9:3 2 AM AOC OPERATIONS INTELLIGENCE CHIEF COMPREHENSIVE METABOLIC PANEL Routine 04/01/2024 9:32 AM AOC OPERATIONS INTELLIGENCE CHIEF FERRITIN Routine 04/01/2024 9:32 AM AOC OPERATIONS INTELLIGENCE CHIEF IRON PROFILE W/ IBC Routine 04/01/2024 9 :32 AM AOC OPERATIONS INTELLIGENCE CHIEF PHOSPHORUS Routine 04/01/2024 9:32 AM AOC OPERATIONS INTELLIGENCE CHIEF CBC WITH AUTO DIFFERENTIAL Routine 04/01/2024 9:32 AM AOC OPERATIONS INTELLIGENCE CHIEF HEMODIALYSIS Routine 03/31/2024 1:24 PM AOC OPERATIONS INTELLIGENCE CHIEF POCT GLUCOSE DEVICE Routine 03/31/2024 1 2:51 PM AOC OPERATIONS INTELLIGENCE CHIEF SURGICAL PATHOLOGY Routine 03/31/2024 12 :03 PM AOC OPERATIONS INTELLIGENCE CHIEF Gangrene (HCC) NC AN PROCEDURE PLACEHOLDER Routine 03/31/2024 11:44 AM AOC OPERATIONS INTELLIGENCE CHIEF NC AN ELECTIVE SUPRAGLOTTIC AIRWAY Routine 03/31/2024 11:44 AM AOC OPERATIONS INTELLIGENCE CHIEF AMPUTATION TRANSMETATARSAL 03/31/2024 11:28 AM AOC OPERATIONS INTELLIGENCE CHIEF EGFR Routine 03/31/2024 7:41 AM AOC OPERATIONS INTELLIGENCE CHIEF DIFFERENTIAL AUTO Routine 03/31/2024 7:4 1 AM AOC OPERATIONS INTELLIGENCE CHIEF VANCOMYCIN LEVEL RANDOM Routine 03/31/19 7:41 AM AOC OPERATIONS INTELLIGENCE CHIEF CBC WITH AUTO DIFFERENTIAL Routine 03/31/2024 7:41 AM AOC OPERATIONS INTELLIGENCE CHIEF BASIC METABOLIC PANEL Routine 03/31/2024 7:41 AM AOC OPERATIONS INTELLIGENCE CHIEF APTT Routine 03/31/2024 7:41 AM AOC OPERATIONS INTELLIGENCE CHIEF PROTIME-INR Routine 03/31/2024 7:41 AM AOC OPERATIONS INTELLIGENCE CHIEF CBC WITHOUT DIFFERENTIAL Routine 03/31/2024 7:41 AM AOC OPERATIONS INTELLIGENCE CHIEF ALBUMIN Routine 03/30/2024 7:07 AM AOC OPERATIONS INTELLIGENCE CHIEF PREALBUMIN Routine 03/30/2024 7:07 AM AOC OPERATIONS INTELLIGENCE CHIEF EGFR Routine 03/30/2024 7:07 AM AOC OPERATIONS INTELLIGENCE CHIEF DIFFERENTIAL AUTO Routine 03/30/2024 7:0 7 AM AOC OPERATIONS INTELLIGENCE CHIEF CBC WITH AUTO DIFFERENTIAL Routine 03/30/2024 7:07 AM AOC OPERATIONS INTELLIGENCE CHIEF BASIC METABOLIC PANEL Routine 03/30/2024 7:07 AM AOC OPERATIONS INTELLIGENCE CHIEF HEMODIALYSIS Routine 03/30/2024 12:31 AM AOC OPERATIONS INTELLIGENCE CHIEF TRANSFUSE RED BLOOD CELLS Timed 03/29/2024 4:50 PM AOC OPERATIONS INTELLIGENCE CHIEF PREPARE RBC Timed 03/29/2024 4:28 PM AOC OPERATIONS INTELLIGENCE CHIEF CROSSMATCH Timed 03/29/2024 3:47 PM AOC OPERATIONS INTELLIGENCE CHIEF ANTIBODY SCREEN Timed 03/29/2024 3:47 PM AOC OPERATIONS INTELLIGENCE CHIEF ABO/RH Timed 03/29/2024 3:47 PM AOC OPERATIONS INTELLIGENCE CHIEF TYPE AND SCREEN Timed 03/29/2024 3:47 PM AOC OPERATIONS INTELLIGENCE CHIEF HEMODIALYSIS Routine 03/29/2024 8:31 AM AOC OPERATIONS INTELLIGENCE CHIEF EGFR Routine 03/29/2024 7:40 AM AOC OPERATIONS INTELLIGENCE CHIEF DIFFERENTIAL AUTO Routine 03/29/2024 7:4 0 AM AOC OPERATIONS INTELLIGENCE CHIEF VANCOMYCIN LEVEL RANDOM Timed 03/29/19 7:40 AM AOC OPERATIONS INTELLIGENCE CHIEF CBC WITH AUTO DIFFERENTIAL Routine 03/29/2024 7:40 AM AOC OPERATIONS INTELLIGENCE CHIEF BASIC METABOLIC PANEL Routine 03/29/2024 7:40 AM AOC OPERATIONS INTELLIGENCE CHIEF EGFR Routine 03/28/2024 7:00 AM AOC OPERATIONS INTELLIGENCE CHIEF DIFFERENTIAL AUTO Routine 03/28/2024 7:0 0 AM AOC OPERATIONS INTELLIGENCE CHIEF VANCOMYCIN LEVEL RANDOM Timed 03/28/19 7:00 AM AOC OPERATIONS INTELLIGENCE CHIEF CBC WITH AUTO DIFFERENTIAL Routine 03/28/2024 7:00 AM AOC OPERATIONS INTELLIGENCE CHIEF BASIC METABOLIC PANEL Routine 03/28/2024 7:00 AM AOC OPERATIONS INTELLIGENCE CHIEF TRANSFUSE RED BLOOD CELLS Timed 03/27/2024 2:33 PM AOC OPERATIONS INTELLIGENCE CHIEF PREPARE RBC Timed 03/27/2024 1:26 PM AOC OPERATIONS INTELLIGENCE CHIEF EGFR Routine 03/27/2024 12:18 PM AOC OPERATIONS INTELLIGENCE CHIEF DIFFERENTIAL AUTO Routine 03/27/2024 12: 18 PM AOC OPERATIONS INTELLIGENCE CHIEF CBC WITH AUTO DIFFERENTIAL Routine 03/27/2024 12:18 PM AOC OPERATIONS INTELLIGENCE CHIEF BASIC METABOLIC PANEL Routine 03/27/2024 12:18 PM AOC OPERATIONS INTELLIGENCE CHIEF BLOOD CULTURE STAT 03/27/2024 12:18 PM AOC OPERATIONS INTELLIGENCE CHIEF HEMODIALYSIS Routine 03/27/2024 9:43 AM AOC OPERATIONS INTELLIGENCE CHIEF BLOOD CULTURE STAT 03/26/2024 11:23 AM AOC OPERATIONS INTELLIGENCE CHIEF CROSSMATCH Timed 03/26/2024 5:05 AM AOC OPERATIONS INTELLIGENCE CHIEF VANCOMYCIN LEVEL RANDOM Routine 03/26/19 5:05 AM AOC OPERATIONS INTELLIGENCE CHIEF EGFR Routine 03/26/2024 5:05 AM AOC OPERATIONS INTELLIGENCE CHIEF DIFFERENTIAL AUTO Routine 03/26/2024 5:0 5 AM AOC OPERATIONS INTELLIGENCE CHIEF ANTIBODY SCREEN Timed 03/26/2024 5:05 AM AOC OPERATIONS INTELLIGENCE CHIEF ABO/RH Timed 03/26/2024 5:05 AM AOC OPERATIONS INTELLIGENCE CHIEF CBC WITH AUTO DIFFERENTIAL Routine 03/26/2024 5:05 AM AOC OPERATIONS INTELLIGENCE CHIEF BASIC METABOLIC PANEL Routine 03/26/2024 5:05 AM AOC OPERATIONS INTELLIGENCE CHIEF TYPE AND SCREEN Timed 03/26/2024 5:05 AM AOC OPERATIONS INTELLIGENCE CHIEF POCT GLUCOSE DEVICE Routine 03/25/2024 5 :20 PM AOC OPERATIONS INTELLIGENCE CHIEF POCT GLUCOSE DEVICE Routine 03/25/2024 1 2:18 PM AOC OPERATIONS INTELLIGENCE CHIEF HEMODIALYSIS Routine 03/25/2024 11:05 AM AOC OPERATIONS INTELLIGENCE CHIEF POCT GLUCOSE DEVICE Routine 03/25/2024 1 0:34 AM AOC OPERATIONS INTELLIGENCE CHIEF ATHERECTOMY - PERIPHERAL Routine 03/25/2024 9:37 AM AOC OPERATIONS INTELLIGENCE CHIEF Osteomyelitis of fourth toe of right foot (HCC) Dry gangrene (HCC) ANGIOGRAPHY UNILATERAL EXTREMITY S&I [id number] Routine 03/25/2024 9:37 AM AOC OPERATIONS INTELLIGENCE CHIEF Osteomyelitis of fourth toe of right foot (HCC) Dry gangrene (HCC) POCT GLUCOSE DEVICE Routine 03/24/2024 8 :10 PM AOC OPERATIONS INTELLIGENCE CHIEF POCT GLUCOSE DEVICE Routine 03/24/2024 4 :57 PM AOC OPERATIONS INTELLIGENCE CHIEF MRI FOOT RIGHT WO CONTRAST IP Routine 03/24/2024 3:20 PM AOC OPERATIONS INTELLIGENCE CHIEF POCT GLUCOSE DEVICE Routine 03/24/2024 1 2:35 PM AOC OPERATIONS INTELLIGENCE CHIEF HEMODIALYSIS Routine 03/24/2024 8:40 AM AOC OPERATIONS INTELLIGENCE CHIEF EGFR Routine 03/24/2024 5:20 AM AOC OPERATIONS INTELLIGENCE CHIEF DIFFERENTIAL AUTO Routine 03/24/2024 5:2 0 AM AOC OPERATIONS INTELLIGENCE CHIEF VANCOMYCIN LEVEL RANDOM Timed 03/24/19 5:20 AM AOC OPERATIONS INTELLIGENCE CHIEF CBC WITH AUTO DIFFERENTIAL Routine 03/24/2024 5:20 AM AOC OPERATIONS INTELLIGENCE CHIEF BASIC METABOLIC PANEL Routine 03/24/2024 5:20 AM AOC OPERATIONS INTELLIGENCE CHIEF POCT GLUCOSE DEVICE Routine 03/24/2024 4 :58 AM AOC OPERATIONS INTELLIGENCE CHIEF POCT GLUCOSE DEVICE Routine 03/23/2024 8 :08 PM AOC OPERATIONS INTELLIGENCE CHIEF POCT GLUCOSE DEVICE Routine 03/23/2024 5 :17 PM AOC OPERATIONS INTELLIGENCE CHIEF TRANSFUSE RED BLOOD CELLS Timed 03/23/2024 2:15 PM AOC OPERATIONS INTELLIGENCE CHIEF PREPARE RBC Timed 03/23/2024 1:54 PM AOC OPERATIONS INTELLIGENCE CHIEF B ABO / RH CONFIRMATION TESTING STAT 03/23/2024 12:40 PM AOC OPERATIONS INTELLIGENCE CHIEF CROSSMATCH Timed 03/23/2024 11:41 AM AOC OPERATIONS INTELLIGENCE CHIEF ANTIBODY SCREEN Timed 03/23/2024 11:41 AM AOC OPERATIONS INTELLIGENCE CHIEF ABO/RH Timed 03/23/2024 11:41 AM AOC OPERATIONS INTELLIGENCE CHIEF TYPE AND SCREEN Timed 03/23/2024 11:41 AM AOC OPERATIONS INTELLIGENCE CHIEF POCT GLUCOSE DEVICE Routine 03/23/2024 8 :15 AM AOC OPERATIONS INTELLIGENCE CHIEF EGFR Routine 03/23/2024 6:15 AM AOC OPERATIONS INTELLIGENCE CHIEF DIFFERENTIAL AUTO Routine 03/23/2024 6:1 5 AM AOC OPERATIONS INTELLIGENCE CHIEF CBC WITH AUTO DIFFERENTIAL Routine 03/23/2024 6:15 AM AOC OPERATIONS INTELLIGENCE CHIEF BASIC METABOLIC PANEL Routine 03/23/2024 6:15 AM AOC OPERATIONS INTELLIGENCE CHIEF POCT GLUCOSE DEVICE Routine 03/22/2024 8 :17 PM AOC OPERATIONS INTELLIGENCE CHIEF POCT GLUCOSE DEVICE Routine 03/22/2024 6 :38 PM AOC OPERATIONS INTELLIGENCE CHIEF POCT GLUCOSE DEVICE Routine 03/22/2024 1 2:46 PM AOC OPERATIONS INTELLIGENCE CHIEF POCT GLUCOSE DEVICE Routine 03/22/2024 7 :19 AM AOC OPERATIONS INTELLIGENCE CHIEF BASIC METABOLIC PANEL Timed 03/22/2024 4:49 AM AOC OPERATIONS INTELLIGENCE CHIEF EGFR Timed 03/22/2024 4:49 AM AOC OPERATIONS INTELLIGENCE CHIEF DIFFERENTIAL AUTO Routine 03/22/2024 4:4 9 AM AOC OPERATIONS INTELLIGENCE CHIEF VANCOMYCIN LEVEL RANDOM Timed 03/22/19 25 4:49 AM AOC OPERATIONS INTELLIGENCE CHIEF CBC WITH AUTO DIFFERENTIAL Routine 03/22/2024 4:49 AM AOC OPERATIONS INTELLIGENCE CHIEF POCT GLUCOSE DEVICE Routine 03/21/2024 8 :14 PM AOC OPERATIONS INTELLIGENCE CHIEF POCT GLUCOSE DEVICE Routine 03/21/2024 5 :29 PM AOC OPERATIONS INTELLIGENCE CHIEF HEMODIALYSIS Routine 03/21/2024 2:09 PM AOC OPERATIONS INTELLIGENCE CHIEF US ARTERIAL DOPPLER LOWER EXTREMITY BILATERAL IP Routine 03/21/2024 1:52 PM AOC OPERATIONS INTELLIGENCE CHIEF POCT GLUCOSE DEVICE Routine 03/21/2024 1 2:14 PM AOC OPERATIONS INTELLIGENCE CHIEF T4, FREE Routine 03/21/2024 7:37 AM AOC OPERATIONS INTELLIGENCE CHIEF THYROID FUNCTION CASCADE Routine 03/21/2024 7:37 AM AOC OPERATIONS INTELLIGENCE CHIEF VANCOMYCIN LEVEL RANDOM Routine 03/21/19 25 7:37 AM AOC OPERATIONS INTELLIGENCE CHIEF EGFR Routine 03/21/2024 7:37 AM AOC OPERATIONS INTELLIGENCE CHIEF DIFFERENTIAL AUTO Routine 03/21/2024 7:3 7 AM AOC OPERATIONS INTELLIGENCE CHIEF BASIC METABOLIC PANEL Routine 03/21/2024 7:37 AM AOC OPERATIONS INTELLIGENCE CHIEF CBC WITH AUTO DIFFERENTIAL Routine 03/21/2024 7:37 AM AOC OPERATIONS INTELLIGENCE CHIEF AEROBIC CULTURE AND GRAM STAIN Routine 03/21/2024 1:40 AM AOC OPERATIONS INTELLIGENCE CHIEF BLOOD CULTURE STAT 03/20/2024 7:13 PM AOC OPERATIONS INTELLIGENCE CHIEF EGFR STAT 03/20/2024 7:12 PM AOC OPERATIONS INTELLIGENCE CHIEF BASIC METABOLIC PANEL STAT 03/20/2024 7:12 PM AOC OPERATIONS INTELLIGENCE CHIEF BLOOD CULTURE STAT 03/20/2024 7:11 PM AOC OPERATIONS INTELLIGENCE CHIEF HEMODIALYSIS Routine 03/20/2024 4:32 PM AOC OPERATIONS INTELLIGENCE CHIEF POTASSIUM LEVEL STAT 03/20/2024 4:11 PM AOC OPERATIONS INTELLIGENCE CHIEF HEMODIALYSIS Routine 03/20/2024 2:17 PM AOC OPERATIONS INTELLIGENCE CHIEF XR FOOT RIGHT 3 OR MORE VIEWS ED 03/20/2024 1:30 PM AOC OPERATIONS INTELLIGENCE CHIEF EGFR STAT 03/20/2024 1:19 PM AOC OPERATIONS INTELLIGENCE CHIEF LIPASE STAT 03/20/2024 1:19 PM AOC OPERATIONS INTELLIGENCE CHIEF DIFFERENTIAL AUTO STAT 03/20/2024 1:1 9 PM AOC OPERATIONS INTELLIGENCE CHIEF COMPREHENSIVE METABOLIC PANEL STAT 03/20/2024 1:19 PM AOC OPERATIONS INTELLIGENCE CHIEF CBC WITH AUTO DIFFERENTIAL STAT 03/20/2024 1:19 PM AOC OPERATIONS INTELLIGENCE CHIEF DIFFERENTIAL AUTO Add On 03/12/2024 10: 56 PM AOC OPERATIONS INTELLIGENCE CHIEF CBC WITH AUTO DIFFERENTIAL Add-On 03/12/2024 10:56 PM AOC OPERATIONS INTELLIGENCE CHIEF TROPONIN T HIGH-SENSITIVITY 6-HOUR Timed 03/12/2024 10:56 PM AOC OPERATIONS INTELLIGENCE CHIEF POTASSIUM LEVEL STAT 03/12/2024 7:15 PM AOC OPERATIONS INTELLIGENCE CHIEF TROPONIN T HIGH-SENSITIVITY 2-HOUR Timed 03/12/2024 6:58 PM AOC OPERATIONS INTELLIGENCE CHIEF HEMODIALYSIS Routine 03/12/2024 6:03 PM AOC OPERATIONS INTELLIGENCE CHIEF EGFR STAT 03/12/2024 4:56 PM [facility] [facility] TROPONIN T HIGH-SENSITIVITY SERIES (BASELINE, 2HR, 4HR, 6HR) STAT 03/12/2024 4:56 PM [facility] [facility] PHOSPHORUS STAT 03/12/2024 4:56 PM [facility] [facility] MAGNESIUM STAT 03/12/2024 4:56 PM [facility] [employer] [facility] [facility] BASIC METABOLIC PANEL STAT 03/12/2024 4:56 PM [facility] [facility] ECG 12-LEAD Routine 03/12/2024 4:53 PM [facility] [employer] [facility] NC CRITICAL CARE ILL/INJURED PATIENT INIT 30-74 MIN Routine 03/12/2024 4:30 PM [facility] [employer] [facility] HEMODIALYSIS Routine 02/28/2024 7:57 AM [facility] [employer] EGFR Routine 02/28/2024 3:58 AM [facility] [employer] T4, FREE Routine 02/28/2024 3:58 AM [facility] [employer] DIFFERENTIAL AUTO Routine 02/28/2024 3:5 8 AM [facility] [employer] MAGNESIUM Routine 02/28/2024 3:58 AM [facility] [employer] HEMOGLOBIN A1C Routine 02/28/2024 3:58 AM [facility] [employer] THYROID FUNCTION CASCADE Routine 02/28/2024 3:58 AM [facility] [employer] CBC WITH AUTO DIFFERENTIAL Routine 02/28/2024 3:58 AM [facility] [employer] PHOSPHORUS Routine 02/28/2024 3:58 AM [facility] [employer] BASIC METABOLIC PANEL Routine 02/28/2024 3:58 AM [facility] [employer] POTASSIUM LEVEL STAT 02/27/2024 4:30 PM [facility] [employer]F HEPATITIS B SURFACE ANTIBODY (IMMUNE STATUS) STAT 02/27/2024 4:30 PM [facility]OC [employer]F HEPATITIS B SURFACE ANTIGEN STAT 02/27/2024 4:30 PM [facility]OC [employer] HEMODIALYSIS Routine 02/27/2024 3:48 PM [facility]OC [employer]F HEMODIALYSIS Routine 02/27/2024 3:39 PM [facility] [employer] POCT GLUCOSE DEVICE Routine 02/27/2024 3 :37 PM [facility]OC [employer] XR TRANSFER OF OUTSIDE FILMS Routine 02/27/2024 9:15 AM [facility]OC [employer] XR TRANSFER OF OUTSIDE FILMS Routine 02/26/2024 4:40 PM [facility] [employer] LIPID PANEL Routine 11/14/2023 5:38 AM CDT from Last 3 Months or Most Recently Relevant to Health Maintenance Results * Transfuse RBC (04/04/2024 3:28 PM AOC [employer]IEF) Blood us Kang Lyles MD BLOOD TRANSFUSION ORDERABLES Final Result Performing Organization Address [facility] Co de Phone Number [address] [place] [employer] [place], [place] [id number] * Prepare RBC: 1 Units (04/04/2024 10:08 AM AOC [employer]IEF) Units requested 1 Units requested Ready [facility] Unit Number [id number] Product code [id number] [facility] Blood Expiration Date [id number] [facility] Product Blood Type (for scanning) 9500 [facility] Product Blood Type ONEG [facility] Dispense Status DISPENSED [facility] Blood 04/04/2024 10:0 8 AM [facility] [employer] 04/04/2024 10:08 AM AOC [employer] Kang Lyles MD BLOOD BANK PRODUCT ORDERABLE S Final Result Performing Organization Address [facility] Co de Phone Number [address] [place] [employer] [place] [address] * (ABNORMAL) eGFR (04/04/2024 7:35 AM AOC [employer]IEF) Pathologist [facility] eGFR 10(L) >=60 mL/min/1. 73 m2 Comment: [...] last reviewed 2021. Blood 04/04/2024 7:35 AM AOC [employer]F 04/04/2024 8:19 AM AOC [employer]F us Kang Lyles MD LAB BLOOD ORDERABLES Final R esult [facility] [address] [facility] Department [place] [address] * Differential, auto (04/04/2024 7:35 AM AOC [employer]TE[employer] CHIEF) [facility] Neutrophil abs 3.2 1.5 - 6.5 K/cumm Imm gran abs 0.0 0.0 - 0.1 K/cumm [facility] Lymphocyte abs 0.9 0.8 - 3.3 K/cumm [facility] Monocyte abs 0.3 0.2 - 0.8 K/cumm [facility] Eosinophil abs 0.1 0.0 - 0.5 K/cumm [facility] Basophil abs 0.0 0.0 - 0.1 K/cumm [facility] Neutrophil pct 69.8 % [facility] Comment: Interpretive Data Percent cell count reference ranges are not reported, since discordance with absolute values may lead to misinterpretation of CBC data. Current Interpretive Data was last revised on 2017. Imm gran pct 0.4 % [facility] Comment: Interpretive Data Percent cell count reference ranges are not reported, since discordance with absolute values may lead to misinterpretation of CBC data. Current Interpretive Data was last revised on 2017. Lymphocyte pct 20.8 % [facility] Comment: Interpretive Data Percent cell count reference ranges are not reported, since discordance with absolute values may lead to misinterpretation of CBC data. Current Interpretive Data was last revised on 2017. Monocyte pct 6.2 % [facility] Comment: Interpretive Data Percent cell count reference ranges are not reported, since discordance with absolute values may lead to misinterpretation of CBC data. Current Interpretive Data was last revised on 2017. Eosinophil pct 2.6 % [facility] Comment: Interpretive Data Percent cell count reference ranges are not reported, since discordance with absolute values may lead to misinterpretation of CBC data. Current Interpretive Data was last revised on 2017. Basophil pct 0.2 % [facility] Comment: Interpretive Data Percent cell count reference ranges are not reported, since discordance with absolute values may lead to misinterpretation of CBC data. Current Interpretive Data was last revised on 2017. Blood 04/04/2024 7:35 AM [facility]OC [employer]F 04/04/2024 8:18 AM AOC [employer]IEF us Ricki Mills MD LAB BLOOD ORDERABLES Final Result [facility] [address] [facility] Department of Laboratories [place], [place] [phone] * (ABNORMAL) CBC with auto differential (04/04/2024 7:35 AM AOC [employer]IE[employer]) WBC 4.5 3.8 - 9.9 K/cumm Hgb 7.0(L) 13.0 - 17.5 g/dL [facility] Hct 22.6(L) 38.9 - 50.3 % [facility] Plt 195 150 - 400 K/cumm [facility] MPV 9.9 9.1 - 12.3 fL [facility] RBC 2.59(L) 4.30 - 5.80 M/cumm [facility] MCV 87.3 81.3 - 96.4 fL [facility] MCH 27.0(L) 27.1 - 33.3 pg [facility] MCHC 31.0(L) 32.3 - 35.7 g/dL [facility] RDW CV 17.5(H) 11.1 - 14.9 % [facility] RDW SD 54.2(H) 35.7 - 48.1 fL [facility] NRBC abs 0.00 0.00 - 0.01 K/cumm [facility] Blood 04/04/2024 7:35 AM AOC [employer]F 04/04/2024 8:18 AM AOC [employer]IEF us Ricki Mills MD LAB BLOOD ORDERABLES Final Result Performing Organization Address [facility]/ZIP Co de Phone Number [address] [place] [address] * (ABNORMAL) CRP (acute phase) (04/04/2024 7:35 AM AOC [employer]LL[employer] CHIEF) [facility] CRP 46.9(H) <=10.0 mg/L Blood 04/04/2024 7:35 AM AOC [employer]F 04/04/2024 8:19 AM AOC [employer]IEF us Kang Lyles MD LAB BLOOD ORDERABLES Final R esult Performing Organization Address City/[facility]/ZIP Co de Phone Number [address] [place] [address] * (ABNORMAL) Basic metabolic panel (04/04/2024 7:35 AM AOC [employer]IEF) Sodium 130(L) 135 - 145 mmol/L Potassium, pl 5.3(H) 3.3 - 4.9 mmol/L [facility] Chloride 91(L) 97 - 110 mmol/L [facility] CO2 28 22 - 32 mmol/L [facility] Anion gap 11 2 - 15 mmol/L [facility] BUN 37(H) 6 - 25 mg/dL [facility] Creatinine 6.68(H) 0.80 - 1.30 mg/dL [facility] Glucose 109 70 - 199 mg/dL [facility] Comment: Interpretive Data Fasting glucose >/= 126 [...] 2022. Calcium 9.2 8.5 - 10.3 mg/dL [facility] Blood 04/04/2024 7:35 AM AOC [employer]F 04/04/2024 8:19 AM AOC [employer] Kang Lyles MD LAB BLOOD ORDERABLES Final R esult [place] [address] [facility] Department [place] [address] * Differential, auto (04/03/2024 3:37 PM AOC [employer]IEF) Pathologist [facility] Neutrophil abs 4.7 1.5 - 6.5 K/cumm Imm gran abs 0.0 0.0 - 0.1 K/cumm [facility] Lymphocyte abs 1.0 0.8 - 3.3 K/cumm [facility] Monocyte abs 0.4 0.2 - 0.8 K/cumm [facility] Eosinophil abs 0.1 0.0 - 0.5 K/cumm [facility] Basophil abs 0.0 0.0 - 0.1 K/cumm [facility] Neutrophil pct 75.3 % [facility] Comment: Interpretive Data Percent cell count reference ranges are not reported, since discordance with absolute values may lead to misinterpretation of CBC data. Current Interpretive Data was last revised on 2017. Imm gran pct 0.3 % [facility] Comment: Interpretive Data Percent cell count reference ranges are not reported, since discordance with absolute values may lead to misinterpretation of CBC data. Current Interpretive Data was last revised on 2017. Lymphocyte pct 15.7 % [facility] Comment: Interpretive Data Percent cell count reference ranges are not reported, since discordance with absolute values may lead to misinterpretation of CBC data. Current Interpretive Data was last revised on 2017. Monocyte pct 6.6 % [facility] Comment: Interpretive Data Percent cell count reference ranges are not reported, since discordance with absolute values may lead to misinterpretation of CBC data. Current Interpretive Data was last revised on 2017. Eosinophil pct 1.9 % [facility] Comment: Interpretive Data Percent cell count reference ranges are not reported, since discordance with absolute values may lead to misinterpretation of CBC data. Current Interpretive Data was last revised on 2017. Basophil pct 0.2 % [facility] Comment: Interpretive Data Percent cell count reference ranges are not reported, since discordance with absolute values may lead to misinterpretation of CBC data. Current Interpretive Data was last revised on 2017. Blood 04/03/2024 3:37 PM AOC [employer]IEF 04/03/2024 3:42 PM AOC [employer]IEF us Kang Lyles MD LAB BLOOD ORDERABLES Final R esult [facility] [address] [facility] Department [place] [address] * (ABNORMAL) CBC with auto differential (04/03/2024 3:37 PM AOC [employer]TE[employer] CHIEF) WBC 6.2 3.8 - 9.9 K/cumm Hgb 8.2(L) 13.0 - 17.5 g/dL [facility] Hct 25.7(L) 38.9 - 50.3 % [facility] Plt 194 150 - 400 K/cumm [facility] MPV 8.9(L) 9.1 - 12.3 fL [facility] RBC 2.99(L) 4.30 - 5.80 M/cumm [facility] MCV 86.0 81.3 - 96.4 fL [facility] MCH 27.4 27.1 - 33.3 pg [facility] MCHC 31.9(L) 32.3 - 35.7 g/dL [facility] RDW CV 17.2(H) 11.1 - 14.9 % [facility] RDW SD 52.0(H) 35.7 - 48.1 fL [facility] NRBC abs 0.00 0.00 - 0.01 K/cumm [facility] Blood 04/03/2024 3:37 PM AOC [employer]TELL[employer] CHIEF 04/03/2024 3:42 PM AOC [employer] INTELLIGENCE CHIEF Kang Lyles MD LAB BLOOD ORDERABLES Final R esult Performing Organization Address City/[facility] Co de Phone Number [address] [employer] [address] * ABO/Rh (04/03/2024 3:37 PM AOC [employer]IGENCE CHIEF) [facility] ABO/Rh O Negative Blood 04/03/2024 3:37 PM AOC [employer]IEF 04/03/2024 3:42 PM AOC [employer] INTELLIGENCE CHIEF Narrative [facility] - 04/03/2024 4:20 PM AOC [employer] CHIEF Has the patient had Daratumumab or Isatuximab in the past 6 months?->Unknown Kang Lyles MD LAB BLOOD BANK TEST ORDERABL ES Final Result Performing Organization Address [facility] de Phone Number [address] [place] [address] * Crossmatch (04/03/2024 3:37 PM AOC [employer]PER[employer] INTELLIGENCE CHIEF) [facility] Crossmatch Compatible [facility] Unit number for crossmatch [id number] [facility] Blood 04/03/2024 3:37 PM AOC [employer]TE[employer] CHIEF 04/03/2024 3:42 PM AOC [employer] INTELLIGENCE CHIEF Kang Lyles MD LAB BLOOD BANK TEST ORDERABL ES Final Result Performing Organization Address [facility] Co de Phone Number [address] [address] * Antibody screen (04/03/2024 3:37 PM AOC [employer] INTELLIGENCE CHIEF) Fermin, indirect, Gel Interpretation Negative ABSC Blood 04/03/2024 3:37 PM AOC [employer]TE[employer] CHIEF 04/03/2024 3:42 PM AOC [employer] INTELLIGENCE CHIEF Narrative [facility] - 04/03/2024 4:20 PM AOC [employer] INTELLIGENCE CHIEF Has the patient had Daratumumab or Isatuximab in the past 6 months?->Unknown Kang Lyles MD LAB BLOOD BANK TEST ORDERABL ES Final Result Performing Organization Address [facility] Co de Phone Number [address] [place] [employer] [place] [address] * (ABNORMAL) eGFR (04/03/2024 8:00 AM AOC [employer]TELL[employer] CHIEF) Pathologist [facility] eGFR 7(L) >=60 mL/min/1. 73 m2 Comment: [...] last reviewed 2021. Blood 04/03/2024 8:00 AM AOC [employer]TE[employer] CHIEF 04/03/2024 8:16 AM AOC [employer]TE[employer]IEF Kang Lyles MD LAB BLOOD ORDERABLES Final R esult Performing Organization Address [facility]/ZIP Co de Phone Number [address] [place] [address] * Differential, auto (04/03/2024 8:00 AM AOC [employer] INTELLIGENCE CHIEF) Neutrophil abs 3.7 1.5 - 6.5 K/cumm Imm gran abs 0.0 0.0 - 0.1 K/cumm [facility] Lymphocyte abs 0.9 0.8 - 3.3 K/cumm [facility] Monocyte abs 0.3 0.2 - 0.8 K/cumm [facility] Eosinophil abs 0.1 0.0 - 0.5 K/cumm [facility] Basophil abs 0.0 0.0 - 0.1 K/cumm [facility] Neutrophil pct 73.9 % [facility] Comment: Interpretive Data Percent cell count reference ranges are not reported, since discordance with absolute values may lead to misinterpretation of CBC data. Current Interpretive Data was last revised on 2017. Imm gran pct 0.4 % [facility] Comment: Interpretive Data Percent cell count reference ranges are not reported, since discordance with absolute values may lead to misinterpretation of CBC data. Current Interpretive Data was last revised on 2017. Lymphocyte pct 16.8 % [facility] Comment: Interpretive Data Percent cell count reference ranges are not reported, since discordance with absolute values may lead to misinterpretation of CBC data. Current Interpretive Data was last revised on 2017. Monocyte pct 6.7 % [facility] Comment: Interpretive Data Percent cell count reference ranges are not reported, since discordance with absolute values may lead to misinterpretation of CBC data. Current Interpretive Data was last revised on 2017. Eosinophil pct 2.0 % [facility] Comment: Interpretive Data Percent cell count reference ranges are not reported, since discordance with absolute values may lead to misinterpretation of CBC data. Current Interpretive Data was last revised on 2017. Basophil pct 0.2 % [facility] Comment: Interpretive Data Percent cell count reference ranges are not reported, since discordance with absolute values may lead to misinterpretation of CBC data. Current Interpretive Data was last revised on 2017. Blood 04/03/2024 8:00 AM AOC [employer]TELL[employer] CHIEF 04/03/2024 8:16 AM AOC [employer]TE[employer] CHIEF Ricki Mills MD LAB BLOOD ORDERABLES Final Result [address] [address] * (ABNORMAL) CBC with auto differential (04/03/2024 8:00 AM AOC [employer] INTELLIGENCE CHIEF) Pathologist [facility] WBC 5.1 3.8 - 9.9 K/cumm Hgb 7.0(L) 13.0 - 17.5 g/dL [facility] Hct 21.7(L) 38.9 - 50.3 % [facility] Plt 183 150 - 400 K/cumm [facility] MPV 9.5 9.1 - 12.3 fL [facility] RBC 2.56(L) 4.30 - 5.80 M/cumm [facility] MCV 84.8 81.3 - 96.4 fL [facility] MCH 27.3 27.1 - 33.3 pg [facility] MCHC 32.3 32.3 - 35.7 g/dL [facility] RDW CV 17.2(H) 11.1 - 14.9 % [facility] RDW SD 51.5(H) 35.7 - 48.1 fL [facility] NRBC abs 0.00 0.00 - 0.01 K/cumm [facility] Blood 04/03/2024 8:00 AM AOC [employer]TELLIGENCE CHIEF 04/03/2024 8:16 AM AOC [employer] INTELL[employer] CHIEF us Ricki Mills MD LAB BLOOD ORDERABLES Final Result Performing Organization Address [facility] de Phone Number [address] [address] * (ABNORMAL) CRP (acute phase) (04/03/2024 8:00 AM AOC OPER[employer] INTELLIGENCE CHIEF) [facility] CRP 45.0(H) <=10.0 mg/L Blood 04/03/2024 8:00 AM AOC [employer] INTELLIGENCE CHIEF 04/03/2024 8:16 AM AOC [employer]PER[employer] INTELLIGENCE CHIEF us Kang Lyles MD LAB BLOOD ORDERABLES Final R esult Performing Organization Address [facility] Co de Phone Number [facility]ERN[facility] [address] [facility] [place] [address] * (ABNORMAL) Haptoglobin (04/03/2024 8:00 AM AOC OPER[employer] INTELLIGENCE CHIEF) [facility] Haptoglobin 215(H) 30 - 200 mg/dL Blood 04/03/2024 8:00 AM AOC [employer] INTELL[employer] CHIEF 04/03/2024 8:16 AM AOC [employer] INTELLIGENCE CHIEF Kang Lyles MD LAB BLOOD ORDERABLES Final R esult [place] [address] [place] [address] * (ABNORMAL) Basic metabolic panel (04/03/2024 8:00 AM AOC OPER[employer] INTELLIGENCE CHIEF) [facility] Sodium 131(L) 135 - 145 mmol/L Potassium, pl 5.5(H) 3.3 - 4.9 mmol/L [facility] Chloride 92(L) 97 - 110 mmol/L [facility] CO2 27 22 - 32 mmol/L [facility] Anion gap 12 2 - 15 mmol/L [facility] BUN 51(H) 6 - 25 mg/dL [facility] Creatinine 8.91(H) 0.80 - 1.30 mg/dL [facility] Glucose 114 70 - 199 mg/dL [facility] Comment: Interpretive Data Fasting glucose >/= 126 [...] 2022. Calcium 8.7 8.5 - 10.3 mg/dL [facility] Blood 04/03/2024 8:00 AM AOC [employer] INTELLIGENCE CHIEF 04/03/2024 8:16 AM AOC [employer]PER[employer] INTELLIGENCE CHIEF Kang Lyles MD LAB BLOOD ORDERABLES Final R esult Performing Organization Address [facility] Co de Phone Number JESSIE [address] [address] * (ABNORMAL) eGFR (04/02/2024 2:15 PM AOC [employer] INTELLIGENCE CHIEF) Pathologist [facility] eGFR 8(L) >=60 mL/min/1. 73 m2 Comment: [...] last reviewed 2021. Blood 04/02/2024 2:15 PM AOC [employer]TELLIGENCE CHIEF 04/02/2024 2:25 PM AOC [employer] INTELLIGENCE CHIEF Kang Lyles MD LAB BLOOD ORDERABLES Final R esult Performing Organization Address City/[facility] Co de Phone Number JESSIE [address] [place] [place] [address] * Differential, auto (04/02/2024 2:15 PM AOC OPER[employer] INTELLIGENCE CHIEF) Pathologist [facility] Neutrophil abs 3.9 1.5 - 6.5 K/cumm Imm gran abs 0.0 0.0 - 0.1 K/cumm [facility] Lymphocyte abs 0.8 0.8 - 3.3 K/cumm [facility] Monocyte abs 0.4 0.2 - 0.8 K/cumm [facility] Eosinophil abs 0.1 0.0 - 0.5 K/cumm [facility] Basophil abs 0.0 0.0 - 0.1 K/cumm [facility] Neutrophil pct 75.4 % [facility] Comment: Interpretive Data Percent cell count reference ranges are not reported, since discordance with absolute values may lead to misinterpretation of CBC data. Current Interpretive Data was last revised on 2017. Imm gran pct 0.8 % [facility] Comment: Interpretive Data Percent cell count reference ranges are not reported, since discordance with absolute values may lead to misinterpretation of CBC data. Current Interpretive Data was last revised on 2017. Lymphocyte pct 15.1 % [facility] Comment: Interpretive Data Percent cell count reference ranges are not reported, since discordance with absolute values may lead to misinterpretation of CBC data. Current Interpretive Data was last revised on 2017. Monocyte pct 7.0 % [facility] Comment: Interpretive Data Percent cell count reference ranges are not reported, since discordance with absolute values may lead to misinterpretation of CBC data. Current Interpretive Data was last revised on 2017. Eosinophil pct 1.5 % [facility] Comment: Interpretive Data Percent cell count reference ranges are not reported, since discordance with absolute values may lead to misinterpretation of CBC data. Current Interpretive Data was last revised on 2017. Basophil pct 0.2 % [facility] Comment: Interpretive Data Percent cell count reference ranges are not reported, since discordance with absolute values may lead to misinterpretation of CBC data. Current Interpretive Data was last revised on 2017. Blood 04/02/2024 2:15 PM AOC [employer] INTELLIGENCE CHIEF 04/02/2024 2:25 PM AOC [employer]PER[employer] INTELLIGENCE CHIEF us Ricki Mills MD LAB BLOOD ORDERABLES Final Result [facility] [address] [facility] Department [place] [address] * (ABNORMAL) CBC with auto differential (04/02/2024 2:15 PM AOC OPER[employer] INTELLIGENCE CHIEF) WBC 5.2 3.8 - 9.9 K/cumm Hgb 7.5(L) 13.0 - 17.5 g/dL [facility] Hct 24.0(L) 38.9 - 50.3 % [facility] Plt 208 150 - 400 K/cumm [facility] MPV 9.5 9.1 - 12.3 fL [facility] RBC 2.78(L) 4.30 - 5.80 M/cumm [facility] MCV 86.3 81.3 - 96.4 fL [facility] MCH 27.0(L) 27.1 - 33.3 pg [facility] MCHC 31.3(L) 32.3 - 35.7 g/dL [facility] RDW CV 16.9(H) 11.1 - 14.9 % [facility] RDW SD 51.8(H) 35.7 - 48.1 fL [facility] NRBC abs 0.00 0.00 - 0.01 K/cumm [facility] Blood 04/02/2024 2:15 PM AOC OPER[employer] INTELLIGENCE CHIEF 04/02/2024 2:25 PM AOC OPER[employer] INTELLIGENCE CHIEF Ricki Mills MD LAB BLOOD ORDERABLES Final Result Performing Organization Address City/[facility]/ZIP Co de Phone Number [address] [place] [employer] [place], [place] [address] * (ABNORMAL) Vitamin D 25 hydroxy (04/02/2024 2:15 PM AOC OPER[employer] INTELLIGENCE CHIEF) Pathologist [facility] Vitamin D 25-OH 14.0(L) 30.0 - 80.0 ng/mL Blood 04/02/2024 2:15 PM AOC [employer] INTELLIGENCE CHIEF 04/02/2024 2:25 PM AOC [employer] INTELLIGENCE CHIEF Kang Lyles MD LAB BLOOD ORDERABLES Final R esult [address] [employer] [place], [place] [id number] * Folate (04/02/2024 2:15 PM AOC OPERATIONS INTELLIGENCE CHIEF) Pathologist [facility] Folic acid 5.4 >=5.0 ng/mL Blood 04/02/2024 2:15 PM AOC [employer]PER[employer] INTELLIGENCE CHIEF 04/02/2024 2:25 PM AOC OPER[employer] INTELLIGENCE CHIEF Kang Lyles MD LAB BLOOD ORDERABLES Final R esult Performing Organization Address [facility] Co de Phone Number [address] [address] * Vitamin B12 (04/02/2024 2:15 PM AOC OPERATIONS INTELLIGENCE CHIEF) [facility] Vitamin B12 548 230 - 1,250 pg/mL Blood 04/02/2024 2:15 PM AOC [employer] INTELLIGENCE CHIEF 04/02/2024 2:25 PM AOC OPER[employer] INTELLIGENCE CHIEF Kang Lyles MD LAB BLOOD ORDERABLES Final [facility] Performing Organization Address [facility] de Phone Number [address] [address] * (ABNORMAL) Basic metabolic panel (04/02/2024 2:15 PM AOC OPERATIONS INTELLIGENCE CHIEF) [facility] Sodium 135 135 - 145 mmol/L Potassium, pl 5.0(H) 3.3 - 4.9 mmol/L [facility] Chloride 93(L) 97 - 110 mmol/L [facility] CO2 29 22 - 32 mmol/L [facility] Anion gap 13 2 - 15 mmol/L [facility] BUN 42(H) 6 - 25 mg/dL [facility] Creatinine 7.61(H) 0.80 - 1.30 mg/dL [facility] Glucose 145 70 - 199 mg/dL [facility] Comment: Interpretive Data Fasting glucose >/= 126 [...] 2022. Calcium 9.2 8.5 - 10.3 mg/dL [facility] Blood 04/02/2024 2:15 PM AOC OPERATIONS INTELLIGENCE CHIEF 04/02/2024 2:25 PM AOC OPERATIONS INTELLIGENCE CHIEF Kang Lyles MD LAB BLOOD ORDERABLES Final R esult Performing Organization Address [facility] Co de Phone Number JESSIE [address] [employer] [employer] [place] [address] * US VEIN DUPLEX LOWER EXTREMITY RIGHT LIMITED, UNILATERAL (04/01/2024 3:45 PM AOC OPERATIONS INTELLIGENCE CHIEF) Anatomical Region Laterality Modality Vascular Right Ultrasound 04/01/2024 Narrative 04/03/2024 11:20 AM AOC OPERATIONS INTELLIGENCE CHIEF Narvii Job ID: [id number] Narvii Document ID: [id number] Dictated date/time: [id number] LOWER EXTREMITY VENOUS DUPLEX REASON FOR EXAM Edema. FINDINGS Veins throughout the right lower extremity show spontaneous and phasic flow with normal augmentation. Veins competent compressible. Left common femoral vein shows normal flow and compressibility as well. OVERALL IMPRESSION Negative for deep venous thrombosis right lower extremity and left common femoral vein. Job ID/Internal Job ID: [id number] Kang Lyles MD [facility] US PROCEDURES Final Resu lt * BUN (04/01/2024 12:41 PM AOC OPERATIONS INTELLIGENCE CHIEF) BUN 20 6 - 25 mg/dL Blood 04/01/2024 12:4 1 PM AOC OPERATIONS INTELLIGENCE CHIEF 04/01/2024 1:22 PM AOC OPERATIONS INTELLIGENCE CHIEF Royer Odom MD LAB BLOOD ORDERABLES Final Re sult Performing Organization Address [facility]/ZIP Co de Phone Number [address] [place] [address] * (ABNORMAL) PTH (04/01/2024 10:05 AM AOC OPERATIONS INTELLIGENCE CHIEF) PTH 1,120(H) 15 - 65 pg/mL Blood 04/01/2024 10:0 5 AM AOC OPERATIONS INTELLIGENCE CHIEF 04/01/2024 10:10 AM AOC OPERATIONS INTELLIGENCE CHIEF us Royer Odom MD LAB BLOOD ORDERABLES Final Re sult Performing Organization Address [facility] Co de Phone Number JESSIE [address] [place] [address] * (ABNORMAL) eGFR (04/01/2024 9:32 AM AOC OPERATIONS INTELLIGENCE CHIEF) Pathologist [facility] eGFR 6(L) >=60 mL/min/1. 73 m2 Comment: [...] last reviewed 2021. Blood 04/01/2024 9:32 AM AOC OPERATIONS INTELLIGENCE CHIEF 04/01/2024 10:10 AM AOC OPERATIONS INTELLIGENCE CHIEF us Luis Nieto MD LAB BLOOD ORDERABLES Final R esult Performing Organization Address City/[facility]/ZIP Co de Phone Number JESSIE [address] [place] [place] [address] * Differential, auto (04/01/2024 9:32 AM AOC OPERATIONS INTELLIGENCE CHIEF) [facility] Neutrophil abs 3.3 1.5 - 6.5 K/cumm Imm gran abs 0.0 0.0 - 0.1 K/cumm [facility] Lymphocyte abs 0.8 0.8 - 3.3 K/cumm [facility] Monocyte abs 0.3 0.2 - 0.8 K/cumm [facility] Eosinophil abs 0.1 0.0 - 0.5 K/cumm [facility] Basophil abs 0.0 0.0 - 0.1 K/cumm [facility] Neutrophil pct 72.4 % [facility] Comment: Interpretive Data Percent cell count reference ranges are not reported, since discordance with absolute values may lead to misinterpretation of CBC data. Current Interpretive Data was last revised on 2017. Imm gran pct 0.7 % [facility] Comment: Interpretive Data Percent cell count reference ranges are not reported, since discordance with absolute values may lead to misinterpretation of CBC data. Current Interpretive Data was last revised on 2017. Lymphocyte pct 18.3 % [facility] Comment: Interpretive Data Percent cell count reference ranges are not reported, since discordance with absolute values may lead to misinterpretation of CBC data. Current Interpretive Data was last revised on 2017. Monocyte pct 6.6 % [facility] Comment: Interpretive Data Percent cell count reference ranges are not reported, since discordance with absolute values may lead to misinterpretation of CBC data. Current Interpretive Data was last revised on 2017. Eosinophil pct 1.8 % [facility] Comment: Interpretive Data Percent cell count reference ranges are not reported, since discordance with absolute values may lead to misinterpretation of CBC data. Current Interpretive Data was last revised on 2017. Basophil pct 0.2 % [facility] Comment: Interpretive Data Percent cell count reference ranges are not reported, since discordance with absolute values may lead to misinterpretation of CBC data. Current Interpretive Data was last revised on 2017. Blood 04/01/2024 9:32 AM AOC OPERATIONS INTELLIGENCE CHIEF 04/01/2024 10:10 AM AOC OPERATIONS INTELLIGENCE CHIEF us Ricki Mills MD LAB BLOOD ORDERABLES Final Result J[facility] [address] [facility] [place] [address] * (ABNORMAL) Iron profile w/ IBC (04/01/2024 9:32 AM AOC OPERATIONS INTELLIGENCE CHIEF) Pathologist [facility] Iron 60 50 - 150 mcg/dL TIBC 181(L) 250 - 400 mcg/dL [facility] Transferrin saturation 33 20 - 50 % [facility] Blood 04/01/2024 9:32 AM AOC OPERATIONS INTELLIGENCE CHIEF 04/01/2024 10:10 AM AOC OPERATIONS INTELLIGENCE CHIEF Royer Odom MD LAB BLOOD ORDERABLES Final Re sult Performing Organization Address [facility] Co de Phone Number [address] [employer] [place] [address] * (ABNORMAL) CBC with auto differential (04/01/2024 9:32 AM AOC OPERATIONS INTELLIGENCE CHIEF) [facility] WBC 4.5 3.8 - 9.9 K/cumm Hgb 7.5(L) 13.0 - 17.5 g/dL [facility] Hct 23.1(L) 38.9 - 50.3 % [facility] Plt 178 150 - 400 K/cumm [facility] MPV 9.7 9.1 - 12.3 fL [facility] RBC 2.78(L) 4.30 - 5.80 M/cumm [facility] MCV 83.1 81.3 - 96.4 fL [facility] MCH 27.0(L) 27.1 - 33.3 pg [facility] MCHC 32.5 32.3 - 35.7 g/dL [facility] RDW CV 16.3(H) 11.1 - 14.9 % [facility] RDW SD 49.1(H) 35.7 - 48.1 fL [facility] NRBC abs 0.00 0.00 - 0.01 K/cumm [facility] Blood 04/01/2024 9:32 AM AOC OPERATIONS INTELLIGENCE CHIEF 04/01/2024 10:10 AM AOC OPERATIONS INTELLIGENCE CHIEF Ricki Mills MD LAB BLOOD ORDERABLES Final Result Performing Organization Address [facility]/ZIP Co de Phone Number [address] [employer] [place] [address] * (ABNORMAL) Phosphorus (04/01/2024 9:32 AM AOC OPERATIONS INTELLIGENCE CHIEF) [facility] Phosphorus, pl 5.5(H) 2.3 - 4.5 mg/dL Blood 04/01/2024 9:32 AM AOC OPERATIONS INTELLIGENCE CHIEF 04/01/2024 10:10 AM AOC OPERATIONS INTELLIGENCE CHIEF Royer Odom MD LAB BLOOD ORDERABLES Final Re sult Performing Organization Address [facility] de Phone Number [address] [place] [address] * (ABNORMAL) Ferritin (04/01/2024 9:32 AM AOC OPERATIONS INTELLIGENCE CHIEF) [facility] Ferritin 891(H) 30 - 400 ng/mL Blood 04/01/2024 9:32 AM AOC OPERATIONS INTELLIGENCE CHIEF 04/01/2024 10:10 AM AOC OPERATIONS INTELLIGENCE CHIEF Royer Odom MD LAB BLOOD ORDERABLES Final Re sult Performing Organization Address [facility] de Phone Number [address] [address] * (ABNORMAL) Comprehensive metabolic panel (04/01/2024 9:32 AM AOC OPERATIONS INTELLIGENCE CHIEF) [facility] Sodium 131(L) 135 - 145 mmol/L Potassium, pl 5.4(H) 3.3 - 4.9 mmol/L [facility] Chloride 91(L) 97 - 110 mmol/L [facility] CO2 26 22 - 32 mmol/L [facility] Anion gap 14 2 - 15 mmol/L [facility] BUN 53(H) 6 - 25 mg/dL [facility] Creatinine 9.64(H) 0.80 - 1.30 mg/dL [facility] Glucose 127 70 - 199 mg/dL [facility] Comment: Interpretive Data Fasting glucose >/= 126 [...] 2022. Calcium 8.5 8.5 - 10.3 mg/dL [facility] Bilirubin, total 0.3 0.1 - 1.2 mg/dL [facility] Protein, pl 6.1(L) 6.5 - 8.5 g/dL [facility] Albumin 3.2(L) 3.5 - 5.0 g/dL [facility] Alk phos 292(H) 40 - 130 Units/L [facility] ALT 7 7 - 55 Units/L [facility] AST 16 10 - 50 Units/L [facility] Blood 04/01/2024 9:32 AM AOC OPERATIONS INTELLIGENCE CHIEF 04/01/2024 10:10 AM AOC OPERATIONS INTELLIGENCE CHIEF us Luis Nieto MD LAB BLOOD ORDERABLES Final R esult Performing Organization Address City/[facility]/ZIP Co de Phone Number [address] [employer] [place] [employer] [place] [address] * POCT glucose (03/31/2024 12:51 PM AOC OPERATIONS INTELLIGENCE CHIEF) Glucose, POC 150 70 - 199 mg/dL Glucose comment 1 Use This Result [facility] Glucose comment 2 RN/MD Notified [facility] Blood 03/31/2024 12:5 1 PM AOC OPERATIONS INTELLIGENCE CHIEF 03/31/2024 12:51 PM AOC OPERATIONS INTELLIGENCE CHIEF us Inocencia Fair MD LAB POCT ORDERABLES - DEVICE Final Result Performing Organization Address City/[facility]/ZIP Co de Phone Number [address] [employer] [place] [employer] [place] [address] * Surgical pathology (03/31/2024 12:03 PM AOC OPERATIONS INTELLIGENCE CHIEF) Tissue (Amputation non-tramatic) 03/31/2024 12:03 PM AOC OPERATIONS INTELLIGENCE CHIEF Narrative PATHOLOGY [facility] - 04/01/2024 3:40 PM AOC OPERATIONS INTELLIGENCE CHIEF [facility] Department of Pathology [address] [place] [address] Note to Patients: This report may contain [...] explain the details. Final Report Patient Name: SOLIS CROCKER : 1980 (Age: 44) Gender: M Address: [address] [place] [address] Hospital #: [id number] Service: Medical Location: Patient Type: [facility] INPATIENT Taken: 03/31/2024 Received: 03/31/2024 Accessioned: 03/31/2024 [...] for gross examination only. SURESH Cramer, PA [facility] Microscopic slide review and interpretation for this case was performed at [facility], Department of Surgical Pathology, [address] [facility] [place], [place] [id number], [place] [address] CLTN # [id number] us Ricki Mills MD LAB PATHOLOGY ORDERABLES F inal Result PATHOLOGY [facility] * NC AN ELECTIVE SUPRAGLOTTIC AIRWAY, NC AN PROCEDURE PLACEHOLDER (03/31/2024 11:44 AM AOC OPERATIONS INTELLIGENCE CHIEF) Narrative Sukumar Wilson CRNA - 03/31/2024 11:44 AM AOC OPERATIONS INTELLIGENCE CHIEF Sukumar Wilson CRNA 03/31/2024 11:45 AM Airway Patient location: OR Urgency: elective Indications for airway management: anesthesia Difficult airway: no Staff: Placed by: SUPERVISING EDITOR TRAILER: Sukumar Wilson CRNA Emergent airway documentation: Risks [...] esult * (ABNORMAL) eGFR (03/31/2024 7:41 AM AOC OPERATIONS INTELLIGENCE CHIEF) eGFR 8(L) >=60 mL/min/1. 73 m2 Comment: [...] of Race in Diagnosing Kidney Disease, JASN 202). The CKD-EPI equation should not be used for patients with unstable renal function and has not been validated in children and those over 70. Current interpretive data was last reviewed 2021. Blood 03/31/2024 7:41 AM AOC OPERATIONS INTELLIGENCE CHIEF 03/31/2024 7:54 AM AOC OPERATIONS INTELLIGENCE CHIEF us Ricki Mills MD LAB BLOOD ORDERABLES Final Result [facility] [address] [facility] Department [place] [address] * (ABNORMAL) Differential, auto (03/31/2024 7:41 AM AOC OPERATIONS INTELLIGENCE CHIEF) Pathologist [facility] Neutrophil abs 5.1 1.5 - 6.5 K/cumm Imm gran abs 0.1 0.0 - 0.1 K/cumm [facility] Lymphocyte abs 0.7(L) 0.8 - 3.3 K/cumm [facility] Monocyte abs 0.3 0.2 - 0.8 K/cumm [facility] Eosinophil abs 0.1 0.0 - 0.5 K/cumm [facility] Basophil abs 0.0 0.0 - 0.1 K/cumm [facility] Neutrophil pct 81.8 % [facility] Comment: Interpretive Data Percent cell count reference ranges are not reported, since discordance with absolute values may lead to misinterpretation of CBC data. Current Interpretive Data was last revised on 2017. Imm gran pct 0.8 % [facility] Comment: Interpretive Data Percent cell count reference ranges are not reported, since discordance with absolute values may lead to misinterpretation of CBC data. Current Interpretive Data was last revised on 2017. Lymphocyte pct 11.1 % [facility] Comment: Interpretive Data Percent cell count reference ranges are not reported, since discordance with absolute values may lead to misinterpretation of CBC data. Current Interpretive Data was last revised on 2017. Monocyte pct 5.3 % [facility] Comment: Interpretive Data Percent cell count reference ranges are not reported, since discordance with absolute values may lead to misinterpretation of CBC data. Current Interpretive Data was last revised on 2017. Eosinophil pct 0.8 % [facility] Comment: Interpretive Data Percent cell count reference ranges are not reported, since discordance with absolute values may lead to misinterpretation of CBC data. Current Interpretive Data was last revised on 2017. Basophil pct 0.2 % [facility] Comment: Interpretive Data Percent cell count reference ranges are not reported, since discordance with absolute values may lead to misinterpretation of CBC data. Current Interpretive Data was last revised on 2017. Blood 03/31/2024 7:41 AM AOC OPERATIONS INTELLIGENCE CHIEF 03/31/2024 7:54 AM AOC OPERATIONS INTELLIGENCE CHIEF us Ricki Mills MD LAB BLOOD ORDERABLES Final Result [facility] [address] [facility] Department [place] [address] * (ABNORMAL) CBC with auto differential (03/31/2024 7:41 AM AOC OPERATIONS INTELLIGENCE CHIEF) WBC 6.2 3.8 - 9.9 K/cumm Hgb 8.0(L) 13.0 - 17.5 g/dL [facility] Hct 24.9(L) 38.9 - 50.3 % [facility] Plt 168 150 - 400 K/cumm [facility] MPV 9.0(L) 9.1 - 12.3 fL [facility] RBC 3.00(L) 4.30 - 5.80 M/cumm [facility] MCV 83.0 81.3 - 96.4 fL [facility] MCH 26.7(L) 27.1 - 33.3 pg [facility] MCHC 32.1(L) 32.3 - 35.7 g/dL [facility] RDW CV 16.1(H) 11.1 - 14.9 % [facility] RDW SD 48.8(H) 35.7 - 48.1 fL [facility] NRBC abs 0.00 0.00 - 0.01 K/cumm [facility] Blood 03/31/2024 7:41 AM AOC OPERATIONS INTELLIGENCE CHIEF 03/31/2024 7:54 AM AOC OPERATIONS INTELLIGENCE CHIEF Ricki Mills MD LAB BLOOD ORDERABLES Final Result Performing Organization Address [facility] de Phone Number [address] [address] * (ABNORMAL) aPTT (03/31/2024 7:41 AM AOC OPERATIONS INTELLIGENCE CHIEF) aPTT 40(H) 22 - 37 sec Comment: Ref Range High Interpretive data aPTT test has not been evaluated for monitoring heparin therapy. The anti-Xa is the preferred test. Current interpretive data was last revised on 2019. Blood 03/31/2024 7:41 AM AOC OPERATIONS INTELLIGENCE CHIEF 03/31/2024 7:54 AM AOC OPERATIONS INTELLIGENCE CHIEF Tiki Birch NP LAB BLOOD ORDERABLES Nita l Result Performing Organization Address [facility] de Phone Number [address] [address] * (ABNORMAL) Protime-INR (03/31/2024 7:41 AM AOC OPERATIONS INTELLIGENCE CHIEF) PT 16.4(H) 12.0 - 14.6 sec Comment:Ref Range High INR 1.3(H) 0.9 - 1.2 [facility] Comment: Ref Range High Interpretive data Oral anticoagulant therapeutic ranges: Venous thromboembolism prophylaxis or treatment: 2.0-3.0 CARDIOLOGY Standard range: 2.0-3.0 High-intensity range: 2.5-3.5 Refer to indication-specific guidelines for appropriate target ranges for prosthetic heart valve replacement. Current interpretive data was last revised on 2019. Blood 03/31/2024 7:41 AM AOC OPERATIONS INTELLIGENCE CHIEF 03/31/2024 7:54 AM AOC OPERATIONS INTELLIGENCE CHIEF Tiki Birch ELOCUTION TEACHER LAB BLOOD ORDERABLES Nita le Result Performing Organization Address [facility] Co de Phone Number JESSIE [address] [place] [address] * (ABNORMAL) CBC without differential (03/31/2024 7:41 AM AOC OPERATIONS INTELLIGENCE CHIEF) Pathologist [facility] WBC 6.5 3.8 - 9.9 K/cumm Hgb 8.4(L) 13.0 - 17.5 g/dL [facility] Hct 25.8(L) 38.9 - 50.3 % [facility] Plt 181 150 - 400 K/cumm [facility] MPV 9.7 9.1 - 12.3 fL [facility] RBC 3.13(L) 4.30 - 5.80 M/cumm [facility] MCV 82.4 81.3 - 96.4 fL [facility] MCH 26.8(L) 27.1 - 33.3 pg [facility] MCHC 32.6 32.3 - 35.7 g/dL [facility] RDW CV 16.2(H) 11.1 - 14.9 % [facility] RDW SD 48.9(H) 35.7 - 48.1 fL [facility] NRBC abs 0.00 0.00 - 0.01 K/cumm [facility] Blood 03/31/2024 7:41 AM AOC OPERATIONS INTELLIGENCE CHIEF 03/31/2024 7:54 AM AOC OPERATIONS INTELLIGENCE CHIEF Tiki Birch ELOCUTION TEACHER LAB BLOOD ORDERABLES Nita l Result Performing Organization Address City/[facility]/ZIP Co de Phone Number [address] [place] [address] * Vancomycin level random (03/31/2024 7:41 AM AOC OPERATIONS INTELLIGENCE CHIEF) Pathologist [facility] Vancomycin random 17.1 mcg/mL Comment: Interpretive Data No reference ranges have been established for random drug levels. Current Interpretive Data was last revised on 2020. Blood 03/31/2024 7:41 AM AOC OPERATIONS INTELLIGENCE CHIEF 03/31/2024 7:54 AM AOC OPERATIONS INTELLIGENCE CHIEF Inocencia Fair MD LAB BLOOD ORDERABLES F inal Result Performing Organization Address [facility] Co de Phone Number [address] [place] [address] * (ABNORMAL) Basic metabolic panel (03/31/2024 7:41 AM AOC OPERATIONS INTELLIGENCE CHIEF) [facility] Sodium 130(L) 135 - 145 mmol/L Potassium, pl 5.0(H) 3.3 - 4.9 mmol/L [facility] Chloride 90(L) 97 - 110 mmol/L [facility] CO2 26 22 - 32 mmol/L [facility] Anion gap 14 2 - 15 mmol/L [facility] BUN 39(H) 6 - 25 mg/dL [facility] Creatinine 7.60(H) 0.80 - 1.30 mg/dL [facility] Glucose 145 70 - 199 mg/dL [facility] Comment: Interpretive Data Fasting glucose >/= 126 [...] 2022. Calcium 8.8 8.5 - 10.3 mg/dL [facility] Blood 03/31/2024 7:41 AM AOC OPERATIONS INTELLIGENCE CHIEF 03/31/2024 7:54 AM AOC OPERATIONS INTELLIGENCE CHIEF Ricki Mills MD LAB BLOOD ORDERABLES Final Result Performing Organization Address [facility]/ZIP Co de Phone Number [address] [place] [address] * (ABNORMAL) eGFR (03/30/2024 7:07 AM AOC OPERATIONS INTELLIGENCE CHIEF) [facility] eGFR 11(L) >=60 mL/min/1. 73 m2 Comment: [...] last reviewed 2021. Blood 03/30/2024 7:07 AM AOC OPERATIONS INTELLIGENCE CHIEF 03/30/2024 7:26 AM AOC OPERATIONS INTELLIGENCE CHIEF us Ricki Mills MD LAB BLOOD ORDERABLES Final Result [facility] [address] [facility] Department [place] [address] * Differential, auto (03/30/2024 7:07 AM AOC OPERATIONS INTELLIGENCE CHIEF) [facility] Neutrophil abs 3.3 1.5 - 6.5 K/cumm Imm gran abs 0.1 0.0 - 0.1 K/cumm [facility] Lymphocyte abs 0.9 0.8 - 3.3 K/cumm [facility] Monocyte abs 0.3 0.2 - 0.8 K/cumm [facility] Eosinophil abs 0.1 0.0 - 0.5 K/cumm [facility] Basophil abs 0.0 0.0 - 0.1 K/cumm [facility] Neutrophil pct 70.6 % [facility] Comment: Interpretive Data Percent cell count reference ranges are not reported, since discordance with absolute values may lead to misinterpretation of CBC data. Current Interpretive Data was last revised on 2017. Imm gran pct 1.1 % [facility] Comment: Interpretive Data Percent cell count reference ranges are not reported, since discordance with absolute values may lead to misinterpretation of CBC data. Current Interpretive Data was last revised on 2017. Lymphocyte pct 19.1 % [facility] Comment: Interpretive Data Percent cell count reference ranges are not reported, since discordance with absolute values may lead to misinterpretation of CBC data. Current Interpretive Data was last revised on 2017. Monocyte pct 7.3 % [facility] Comment: Interpretive Data Percent cell count reference ranges are not reported, since discordance with absolute values may lead to misinterpretation of CBC data. Current Interpretive Data was last revised on 2017. Eosinophil pct 1.5 % [facility] Comment: Interpretive Data Percent cell count reference ranges are not reported, since discordance with absolute values may lead to misinterpretation of CBC data. Current Interpretive Data was last revised on 2017. Basophil pct 0.4 % [facility] Comment: Interpretive Data Percent cell count reference ranges are not reported, since discordance with absolute values may lead to misinterpretation of CBC data. Current Interpretive Data was last revised on 2017. Blood 03/30/2024 7:07 AM AOC OPERATIONS INTELLIGENCE CHIEF 03/30/2024 7:25 AM AOC OPERATIONS INTELLIGENCE CHIEF us Ricki Mills MD LAB BLOOD ORDERABLES Final Result [facility] [address] [facility] Department [place] [address] * (ABNORMAL) CBC with auto differential (03/30/2024 7:07 AM AOC OPERATIONS INTELLIGENCE CHIEF) WBC 4.7 3.8 - 9.9 K/cumm Hgb 8.8(L) 13.0 - 17.5 g/dL [facility] Hct 27.5(L) 38.9 - 50.3 % [facility] Plt 183 150 - 400 K/cumm [facility] MPV 9.2 9.1 - 12.3 fL [facility] RBC 3.31(L) 4.30 - 5.80 M/cumm [facility] MCV 83.1 81.3 - 96.4 fL [facility] MCH 26.6(L) 27.1 - 33.3 pg [facility] MCHC 32.0(L) 32.3 - 35.7 g/dL [facility] RDW CV 16.3(H) 11.1 - 14.9 % [facility] RDW SD 49.2(H) 35.7 - 48.1 fL [facility] NRBC abs 0.00 0.00 - 0.01 K/cumm [facility] Blood 03/30/2024 7:07 AM AOC OPERATIONS INTELLIGENCE CHIEF 03/30/2024 7:25 AM AOC OPERATIONS INTELLIGENCE CHIEF Ricki Mills MD LAB BLOOD ORDERABLES Final Result Performing Organization Address [facility] de Phone Number [address] [place] [address] * (ABNORMAL) Prealbumin (03/30/2024 7:07 AM AOC OPERATIONS INTELLIGENCE CHIEF) Prealbumin 13.0(L) 20.0 - 40.0 mg/dL Blood 03/30/2024 7:07 AM AOC OPERATIONS INTELLIGENCE CHIEF 03/30/2024 7:26 AM AOC OPERATIONS INTELLIGENCE CHIEF Inocencia Fair MD LAB BLOOD ORDERABLES F inal Result Performing Organization Address [facility] de Phone Number [address] [place] [address] * (ABNORMAL) Albumin (03/30/2024 7:07 AM AOC OPERATIONS INTELLIGENCE CHIEF) Albumin 3.4(L) 3.5 - 5.0 g/dL Blood 03/30/2024 7:07 AM AOC OPERATIONS INTELLIGENCE CHIEF 03/30/2024 7:26 AM AOC OPERATIONS INTELLIGENCE CHIEF Inocencia Fair MD LAB BLOOD ORDERABLES F inal Result Performing Organization Address [facility]/ZIP Co de Phone Number [address] [place] [address] * (ABNORMAL) Basic metabolic panel (03/30/2024 7:07 AM AOC OPERATIONS INTELLIGENCE CHIEF) Sodium 136 135 - 145 mmol/L Potassium, pl 4.4 3.3 - 4.9 mmol/L [facility] Chloride 95(L) 97 - 110 mmol/L [facility] CO2 30 22 - 32 mmol/L [facility] Anion gap 11 2 - 15 mmol/L [facility] BUN 28(H) 6 - 25 mg/dL [facility] Creatinine 6.04(H) 0.80 - 1.30 mg/dL [facility] Glucose 93 70 - 199 mg/dL [facility] Comment: Interpretive Data Fasting glucose >/= 126 [...] 2022. Calcium 8.8 8.5 - 10.3 mg/dL [facility] Blood 03/30/2024 7:07 AM AOC OPERATIONS INTELLIGENCE CHIEF 03/30/2024 7:26 AM AOC OPERATIONS INTELLIGENCE CHIEF us Ricki Mills MD LAB BLOOD ORDERABLES Final Result Performing Organization Address [facility] Co de Phone Number [address] [place] [address] * Transfuse RBC (03/30/2024 12:50 AM AOC OPERATIONS INTELLIGENCE CHIEF) Blood us Inocencia Fair MD BLOOD [facility] Final Result Performing Organization Address [facility] Co de Phone Number [address] [place] [address] * Prepare RBC: 1 Units (03/29/2024 4:28 PM AOC OPERATIONS INTELLIGENCE CHIEF) Units requested 1 Units requested Ready JESSIE Unit Number [id number] Product code [id number] [facility] Blood Expiration Date [facility] Product Blood Type (for scanning) 9500 [facility] Product Blood Type ONEG [facility] Dispense Status DISPENSED [facility] Blood 03/29/2024 4:28 PM [facility] [employer] [facility] 03/29/2024 4:28 PM [facility] [employer]IEF Inocencia Fair MD BLOOD BANK PRODUCT ORD ERABLES Final Result Performing Organization Address [facility] de Phone Number [address] [place] [address] * ABO/Rh (03/29/2024 3:47 PM [facility]OC [employer] INTELLIGENCE CHIEF) Pathologist [facility] ABO/Rh O Negative Blood 03/29/2024 3:47 PM [facility]OC [employer]TELL[employer] CHIEF 03/29/2024 3:53 PM AOC [employer]PER[employer] INTELLIGENCE CHIEF Narrative [facility] - 03/29/2024 4:28 PM [facility]OC [employer] INTELLIGENCE CHIEF Has the patient had Daratumumab or Isatuximab in the past 6 months?->Unknown us Inocencia Fair MD LAB BLOOD BANK TEST OR DERABLES Final Result Performing Organization Address [facility] de Phone Number [address] [address] * Crossmatch (03/29/2024 3:47 PM [facility]OC [employer] INTELLIGENCE CHIEF) Crossmatch Compatible [facility] Unit number for crossmatch [id number] [facility] Blood 03/29/2024 3:47 PM [facility] [employer] [facility]IEF 03/29/2024 3:53 PM [facility] [employer]TELL[employer]IEF Inocencia Fair MD LAB BLOOD BANK TEST OR DERABLES Final Result JESSIE [address] [place] [address] * Antibody screen (03/29/2024 3:47 PM [facility]OC [employer]PER[employer] INTELLIGENCE CHIEF) Pathologist [facility] Fermin, indirect, Gel Interpretation Negative ABSC Blood 03/29/2024 3:47 PM [facility] [employer]TELL[employer] CHIEF 03/29/2024 3:53 PM [facility]OC [employer] INTELLIGENCE CHIEF Narrative [facility] - 03/29/2024 4:28 PM [facility]OC [employer] INTELLIGENCE CHIEF Has the patient had Daratumumab or Isatuximab in the past 6 months?->Unknown us Inocencia Fair MD LAB BLOOD BANK TEST OR DERABLES Final Result JESSIE [address] [address] * (ABNORMAL) eGFR (03/29/2024 7:40 AM AOC [employer] INTELLIGENCE CHIEF) [facility] eGFR 9(L) >=60 mL/min/1. 73 m2 Comment: [...] last reviewed 2021. Blood 03/29/2024 7:40 AM [facility]OC [employer]TELL[employer] CHIEF 03/29/2024 7:48 AM [facility] [employer]TE[employer]IEF us Ricki Mills MD LAB BLOOD ORDERABLES Final Result JESSIE [address] [facility] Department [place] [address] * Differential, auto (03/29/2024 7:40 AM [facility]OC [employer] INTELLIGENCE CHIEF) Neutrophil abs 3.3 1.5 - 6.5 K/cumm Imm gran abs 0.1 0.0 - 0.1 K/cumm [facility] Lymphocyte abs 0.8 0.8 - 3.3 K/cumm [facility] Monocyte abs 0.4 0.2 - 0.8 K/cumm [facility] Eosinophil abs 0.1 0.0 - 0.5 K/cumm [facility] Basophil abs 0.0 0.0 - 0.1 K/cumm [facility] Neutrophil pct 71.6 % [facility] Comment: Interpretive Data Percent cell count reference ranges are not reported, since discordance with absolute values may lead to misinterpretation of CBC data. Current Interpretive Data was last revised on 2017. Imm gran pct 1.1 % [facility] Comment: Interpretive Data Percent cell count reference ranges are not reported, since discordance with absolute values may lead to misinterpretation of CBC data. Current Interpretive Data was last revised on 2017. Lymphocyte pct 18.0 % [facility] Comment: Interpretive Data Percent cell count reference ranges are not reported, since discordance with absolute values may lead to misinterpretation of CBC data. Current Interpretive Data was last revised on 2017. Monocyte pct 7.6 % [facility] Comment: Interpretive Data Percent cell count reference ranges are not reported, since discordance with absolute values may lead to misinterpretation of CBC data. Current Interpretive Data was last revised on 2017. Eosinophil pct 1.5 % [facility] Comment: Interpretive Data Percent cell count reference ranges are not reported, since discordance with absolute values may lead to misinterpretation of CBC data. Current Interpretive Data was last revised on 2017. Basophil pct 0.2 % [facility] Comment: Interpretive Data Percent cell count reference ranges are not reported, since discordance with absolute values may lead to misinterpretation of CBC data. Current Interpretive Data was last revised on 2017. Blood 03/29/2024 7:40 AM [facility] [employer]TELLIGENCE CHIEF 03/29/2024 7:48 AM [facility]OC [employer]TELL[employer] CHIEF Ricki Mills MD LAB BLOOD ORDERABLES Final Result Performing Organization Address [facility] de Phone Number JESSIE [address] [address] * (ABNORMAL) CBC with auto differential (03/29/2024 7:40 AM AOC [employer] INTELLIGENCE CHIEF) Pathologist [facility] WBC 4.6 3.8 - 9.9 K/cumm Hgb 7.6(L) 13.0 - 17.5 g/dL [facility] Hct 23.8(L) 38.9 - 50.3 % [facility] Plt 183 150 - 400 K/cumm [facility] MPV 9.4 9.1 - 12.3 fL [facility] RBC 2.87(L) 4.30 - 5.80 M/cumm [facility] MCV 82.9 81.3 - 96.4 fL [facility] MCH 26.5(L) 27.1 - 33.3 pg [facility] MCHC 31.9(L) 32.3 - 35.7 g/dL [facility] RDW CV 16.1(H) 11.1 - 14.9 % [facility] RDW SD 49.2(H) 35.7 - 48.1 fL [facility] NRBC abs 0.00 0.00 - 0.01 K/cumm [facility] Blood 03/29/2024 7:40 AM [facility] [employer]TELL[employer]IEF 03/29/2024 7:48 AM AOC [employer] INTELLIGENCE CHIEF Ricki Mills MD LAB BLOOD ORDERABLES Final Result Performing Organization Address [facility] Co de Phone Number JESSIE [address] [place] [address] * Vancomycin level random (03/29/2024 7:40 AM AOC [employer] INTELLIGENCE CHIEF) Pathologist [facility] Vancomycin random 14.7 mcg/mL Comment: Interpretive Data No reference ranges have been established for random drug levels. Current Interpretive Data was last revised on 2020. Blood 03/29/2024 7:40 AM [facility]OC [employer]TELLIGENCE CHIEF 03/29/2024 7:48 AM AOC [employer]TELLIGENCE CHIEF Luis Nieto MD LAB BLOOD ORDERABLES Final R esult Performing Organization Address [facility]/ZIP Co de Phone Number [address] [place] [address] * (ABNORMAL) Basic metabolic panel (03/29/2024 7:40 AM AOC OPERATIONS INTELLIGENCE CHIEF) [facility] Sodium 133(L) 135 - 145 mmol/L Potassium, pl 4.7 3.3 - 4.9 mmol/L [facility] Chloride 92(L) 97 - 110 mmol/L [facility] CO2 28 22 - 32 mmol/L [facility] Anion gap 13 2 - 15 mmol/L [facility] BUN 36(H) 6 - 25 mg/dL [facility] Creatinine 7.25(H) 0.80 - 1.30 mg/dL [facility] Glucose 101 70 - 199 mg/dL [facility] Comment: Interpretive Data Fasting glucose >/= 126 [...] 2022. Calcium 8.4(L) 8.5 - 10.3 mg/dL [facility] Blood 03/29/2024 7:40 AM [facility]OC [employer]TELL[employer] CHIEF 03/29/2024 7:48 AM AOC [employer]PER[employer] INTELLIGENCE CHIEF Ricki Mills MD LAB BLOOD ORDERABLES Final Result Performing Organization Address [facility] Co de Phone Number [address] [place] [address] * (ABNORMAL) eGFR (03/28/2024 7:00 AM AOC [employer]PER[employer] INTELLIGENCE CHIEF) [facility] eGFR 7(L) >=60 mL/min/1. 73 [...] last reviewed 2021. Blood 03/28/2024 7:00 AM AOC [employer]TELLIGENCE CHIEF 03/28/2024 7:10 AM AOC [employer] INTELL[employer] CHIEF us Ricki Mills MD LAB BLOOD ORDERABLES Final Result [facility] [address] [facility] Department [place] [address] * Differential, auto (03/28/2024 7:00 AM AOC OPERATIONS INTELLIGENCE CHIEF) [facility] Neutrophil abs 3.5 1.5 - 6.5 K/cumm Imm gran abs 0.0 0.0 - 0.1 K/cumm [facility] Lymphocyte abs 0.8 0.8 - 3.3 K/cumm [facility] Monocyte abs 0.4 0.2 - 0.8 K/cumm [facility] Eosinophil abs 0.1 0.0 - 0.5 K/cumm [facility] Basophil abs 0.0 0.0 - 0.1 K/cumm [facility] Neutrophil pct 72.5 % [facility] Comment: Interpretive Data Percent cell count reference ranges are not reported, since discordance with absolute values may lead to misinterpretation of CBC data. Current Interpretive Data was last revised on 2017. Imm gran pct 0.6 % [facility] Comment: Interpretive Data Percent cell count reference ranges are not reported, since discordance with absolute values may lead to misinterpretation of CBC data. Current Interpretive Data was last revised on 2017. Lymphocyte pct 15.7 % [facility] Comment: Interpretive Data Percent cell count reference ranges are not reported, since discordance with absolute values may lead to misinterpretation of CBC data. Current Interpretive Data was last revised on 2017. Monocyte pct 9.1 % [facility] Comment: Interpretive Data Percent cell count reference ranges are not reported, since discordance with absolute values may lead to misinterpretation of CBC data. Current Interpretive Data was last revised on 2017. Eosinophil pct 2.1 % [facility] Comment: Interpretive Data Percent cell count reference ranges are not reported, since discordance with absolute values may lead to misinterpretation of CBC data. Current Interpretive Data was last revised on 2017. Basophil pct 0.0 % [facility] Comment: Interpretive Data Percent cell count reference ranges are not reported, since discordance with absolute values may lead to misinterpretation of CBC data. Current Interpretive Data was last revised on 2017. Blood 03/28/2024 7:00 AM AOC [employer] INTELLIGENCE CHIEF 03/28/2024 7:10 AM AOC [employer]PER[employer] INTELLIGENCE CHIEF us Ricki Mills MD LAB BLOOD ORDERABLES Final Result [facility] [address] [facility] Department [place] [address] * (ABNORMAL) CBC with auto differential (03/28/2024 7:00 AM AOC [employer]PER[employer] INTELLIGENCE CHIEF) WBC 4.9 3.8 - 9.9 K/cumm Hgb 7.7(L) 13.0 - 17.5 g/dL [facility] Hct 23.9(L) 38.9 - 50.3 % [facility] Plt 181 150 - 400 K/cumm [facility] MPV 9.3 9.1 - 12.3 fL [facility] RBC 2.93(L) 4.30 - 5.80 M/cumm [facility] MCV 81.6 81.3 - 96.4 fL [facility] MCH 26.3(L) 27.1 - 33.3 pg [facility] MCHC 32.2(L) 32.3 - 35.7 g/dL [facility] RDW CV 16.1(H) 11.1 - 14.9 % [facility] RDW SD 48.2(H) 35.7 - 48.1 fL [facility] NRBC abs 0.00 0.00 - 0.01 K/cumm [facility] Blood 03/28/2024 7:00 AM AOC [employer] INTELLIGENCE CHIEF 03/28/2024 7:10 AM AOC [employer] INTELLIGENCE CHIEF Ricki Mills MD LAB BLOOD ORDERABLES Final Result Performing Organization Address [facility] de Phone Number [address] [place] [address] * Vancomycin level random (03/28/2024 7:00 AM AOC OPERATIONS INTELLIGENCE CHIEF) Pathologist [facility] Vancomycin random 16.3 mcg/mL Comment: Interpretive Data No reference ranges have been established for random drug levels. Current Interpretive Data was last revised on 2020. Blood 03/28/2024 7:00 AM AOC [employer] INTELLIGENCE CHIEF 03/28/2024 7:10 AM AOC OPERATIONS INTELLIGENCE CHIEF Narrative [facility] - 03/28/2024 7:46 AM AOC [employer] INTELLIGENCE CHIEF Prior to HD Luis Nieto MD LAB BLOOD ORDERABLES Final R esult Performing Organization Address [facility] Co de Phone Number [address] [place] [address] * (ABNORMAL) Basic metabolic panel (03/28/2024 7:00 AM AOC OPER[employer] INTELLIGENCE CHIEF) Pathologist [facility] Sodium 131(L) 135 - 145 mmol/L Potassium, pl 4.9 3.3 - 4.9 mmol/L [facility] Chloride 89(L) 97 - 110 mmol/L [facility] CO2 27 22 - 32 mmol/L [facility] Anion gap 15 2 - 15 mmol/L [facility] BUN 50(H) 6 - 25 mg/dL [facility] Creatinine 9.17(H) 0.80 - 1.30 mg/dL [facility] Glucose 187 70 - 199 mg/dL [facility] Comment: Interpretive Data Fasting glucose >/= 126 [...] 2022. Calcium 8.0(L) 8.5 - 10.3 mg/dL [facility] Blood 03/28/2024 7:00 AM AOC [employer] INTELLIGENCE CHIEF 03/28/2024 7:10 AM AOC [employer] INTELL[employer] CHIEF us Ricki Mills MD LAB BLOOD ORDERABLES Final Result Performing Organization Address [facility] Co de Phone Number [address] [employer] [place] [address] * Transfuse RBC (03/27/2024 6:48 PM AOC OPERATIONS INTELLIGENCE CHIEF) Blood us Inocencia Fair MD BLOOD [facility] Final Result Performing Organization Address [facility] Co de Phone Number [address] [place] [address] * Prepare RBC: 1 Units (03/27/2024 1:26 PM AOC [employer] INTELLIGENCE CHIEF) Units requested 1 Units requested Ready [facility] Unit Number [id number] Product code [id number] [facility] Blood Expiration Date [id number] [facility] Product Blood Type (for scanning) 9500 [facility] Product Blood Type ONEG [facility] Dispense Status DISPENSED [facility] Blood 03/27/2024 1:26 PM AOC [employer] INTELLIGENCE CHIEF 03/27/2024 1:26 PM AOC [employer]PER[employer] INTELLIGENCE CHIEF Inocencia Fair MD BLOOD BANK PRODUCT ORD ERABLES Final Result Performing Organization Address [facility] Co de Phone Number JESSIE [address] [address] * (ABNORMAL) eGFR (03/27/2024 12:18 PM AOC OPERATIONS INTELLIGENCE CHIEF) [facility] eGFR 8(L) >=60 mL/min/1. 73 [...] reviewed 2021. Blood 03/27/2024 12:1 8 PM AOC [employer] INTELLIGENCE CHIEF 03/27/2024 12:25 PM AOC OPER[employer] INTELLIGENCE CHIEF us Ricki Mills MD LAB BLOOD ORDERABLES Final Result Performing Organization Address City/[facility]/ZIP Co de Phone Number SATISH[address] [address] * Differential, auto (03/27/2024 12:18 PM AOC OPERATIONS INTELLIGENCE CHIEF) [facility] Neutrophil abs 4.3 1.5 - 6.5 K/cumm Imm gran abs 0.0 0.0 - 0.1 K/cumm [facility] Lymphocyte abs 0.8 0.8 - 3.3 K/cumm [facility] Monocyte abs 0.4 0.2 - 0.8 K/cumm [facility] Eosinophil abs 0.1 0.0 - 0.5 K/cumm [facility] Basophil abs 0.0 0.0 - 0.1 K/cumm [facility] Neutrophil pct 76.6 % [facility] Comment: Interpretive Data Percent cell count reference ranges are not reported, since discordance with absolute values may lead to misinterpretation of CBC data. Current Interpretive Data was last revised on 2017. Imm gran pct 0.4 % [facility] Comment: Interpretive Data Percent cell count reference ranges are not reported, since discordance with absolute values may lead to misinterpretation of CBC data. Current Interpretive Data was last revised on 2017. Lymphocyte pct 14.2 % [facility] Comment: Interpretive Data Percent cell count reference ranges are not reported, since discordance with absolute values may lead to misinterpretation of CBC data. Current Interpretive Data was last revised on 2017. Monocyte pct 7.2 % [facility] Comment: Interpretive Data Percent cell count reference ranges are not reported, since discordance with absolute values may lead to misinterpretation of CBC data. Current Interpretive Data was last revised on 2017. Eosinophil pct 1.4 % [facility] Comment: Interpretive Data Percent cell count reference ranges are not reported, since discordance with absolute values may lead to misinterpretation of CBC data. Current Interpretive Data was last revised on 2017. Basophil pct 0.2 % [facility] Comment: Interpretive Data Percent cell count reference ranges are not reported, since discordance with absolute values may lead to misinterpretation of CBC data. Current Interpretive Data was last revised on 2017. Blood 03/27/2024 12:1 8 PM AOC [employer] INTELLIGENCE CHIEF 03/27/2024 12:25 PM AOC OPER[employer] INTELLIGENCE CHIEF us Ricki Mills MD LAB BLOOD ORDERABLES Final Result [facility] [address] [facility] Department [place] [address] * (ABNORMAL) CBC with auto differential (03/27/2024 12:18 PM AOC OPERATIONS INTELLIGENCE CHIEF) WBC 5.6 3.8 - 9.9 K/cumm Hgb 7.3(L) 13.0 - 17.5 g/dL [facility] Hct 23.1(L) 38.9 - 50.3 % [facility] Plt 191 150 - 400 K/cumm [facility] MPV 9.2 9.1 - 12.3 fL [facility] RBC 2.82(L) 4.30 - 5.80 M/cumm [facility] MCV 81.9 81.3 - 96.4 fL [facility] MCH 25.9(L) 27.1 - 33.3 pg [facility] MCHC 31.6(L) 32.3 - 35.7 g/dL [facility] RDW CV 16.6(H) 11.1 - 14.9 % [facility] RDW SD 49.9(H) 35.7 - 48.1 fL [facility] NRBC abs 0.00 0.00 - 0.01 K/cumm [facility] Blood 03/27/2024 12:1 8 PM [facility]OC [employer]TELL[employer] CHIEF 03/27/2024 12:25 PM AOC [employer]PER[employer] INTELLIGENCE CHIEF us Ricki Mills MD LAB BLOOD ORDERABLES Final Result JESSIE [address] [facility] Department [place] [address] * Blood culture Blood (03/27/2024 12:18 PM AOC OPERATIONS INTELLIGENCE CHIEF) Pathologist [facility] Report Final Report: No growth Comment:Testing performed by : [facility], [address] [facility], [place]., [address] Blood 03/27/2024 12:1 8 PM AOC [employer]TELL[employer] CHIEF 03/27/2024 3:04 PM AOC [employer]PER[employer] INTELLIGENCE CHIEF Narrative [facility] - 03/31/2024 4:00 PM AOC [employer] INTELLIGENCE CHIEF From a different site than #1. Collection->Peripheral [...] performance characteristics have been verified by the [facility] Microbiology Laboratory. For questions about this culture, contact the Microbiology Laboratory at [phone]. Interpretive data was last revised on 23. Luis Nieto MD LAB MICROBIOLOGY - GENERAL O RDERABLES Final Result [facility] [address] [facility] Department [place] [address] * (ABNORMAL) Basic metabolic panel (03/27/2024 12:18 PM AOC OPER[employer] INTELLIGENCE CHIEF) Sodium 131(L) 135 - 145 mmol/L Potassium, pl 4.6 3.3 - 4.9 mmol/L [facility] Chloride 90(L) 97 - 110 mmol/L [facility] CO2 28 22 - 32 mmol/L [facility] Anion gap 13 2 - 15 mmol/L [facility] BUN 42(H) 6 - 25 mg/dL [facility] Creatinine 7.55(H) 0.80 - 1.30 mg/dL [facility] Glucose 177 70 - 199 mg/dL [facility] Comment: Interpretive Data Fasting glucose >/= 126 [...] Calcium 8.4(L) 8.5 - 10.3 mg/dL [facility] Blood 03/27/2024 12:1 8 PM AOC [employer] INTELLIGENCE CHIEF 03/27/2024 12:25 PM AOC [employer]PER[employer] INTELLIGENCE CHIEF us Ricki Mills MD LAB BLOOD ORDERABLES Final Result JESS[facility] [address] [facility] Department [place] [address] * Blood culture Blood (03/26/2024 11:23 AM AOC OPERATIONS INTELLIGENCE CHIEF) Report Final Report: No growth Comment:Testing performed by : [facility], [address] [place]., [address] Blood 03/26/2024 11:2 3 AM AOC [employer] INTELLIGENCE CHIEF 03/26/2024 1:31 PM AOC OPERATIONS INTELLIGENCE CHIEF Narrative [facility] - 03/30/2024 4:00 PM AOC OPERATIONS INTELLIGENCE CHIEF Collection->Peripheral 1. Blood cultures are incubated for [...] performance characteristics have been verified by the [facility] Microbiology Laboratory. For questions about this culture, contact the Microbiology Laboratory at [phone]. Interpretive data was last revised on 23. us Luis Nieto MD LAB MICROBIOLOGY - GENERAL O RDERABLES Final Result Performing Organization Address [facility]/ZIP Co de Phone Number JESSIE [address] [address] * (ABNORMAL) eGFR (03/26/2024 5:05 AM AOC OPERATIONS INTELLIGENCE CHIEF) Pathologist [facility] eGFR 7(L) >=60 mL/min/1. 73 m2 Comment: [...] last reviewed 2021. Blood 03/26/2024 5:05 AM AOC [employer]PER[employer] INTELLIGENCE CHIEF 03/26/2024 5:18 AM AOC [employer]PER[employer] INTELLIGENCE CHIEF us Ricki Mills MD LAB BLOOD ORDERABLES Final Result Performing Organization Address City/[facility]/ZIP Co de Phone Number JESSIE [address] [place] [address] * Differential, auto (03/26/2024 5:05 AM AOC OPERATIONS INTELLIGENCE CHIEF) [facility] Neutrophil abs 5.0 1.5 - 6.5 K/cumm Imm gran abs 0.0 0.0 - 0.1 K/cumm [facility] Lymphocyte abs 1.0 0.8 - 3.3 K/cumm [facility] Monocyte abs 0.6 0.2 - 0.8 K/cumm [facility] Eosinophil abs 0.0 0.0 - 0.5 K/cumm [facility] Basophil abs 0.0 0.0 - 0.1 K/cumm [facility] Neutrophil pct 74.7 % [facility] Comment: Interpretive Data Percent cell count reference ranges are not reported, since discordance with absolute values may lead to misinterpretation of CBC data. Current Interpretive Data was last revised on 2017. Imm gran pct 0.6 % [facility] Comment: Interpretive Data Percent cell count reference ranges are not reported, since discordance with absolute values may lead to misinterpretation of CBC data. Current Interpretive Data was last revised on 2017. Lymphocyte pct 14.8 % [facility] Comment: Interpretive Data Percent cell count reference ranges are not reported, since discordance with absolute values may lead to misinterpretation of CBC data. Current Interpretive Data was last revised on 2017. Monocyte pct 9.0 % [facility] Comment: Interpretive Data Percent cell count reference ranges are not reported, since discordance with absolute values may lead to misinterpretation of CBC data. Current Interpretive Data was last revised on 2017. Eosinophil pct 0.6 % [facility] Comment: Interpretive Data Percent cell count reference ranges are not reported, since discordance with absolute values may lead to misinterpretation of CBC data. Current Interpretive Data was last revised on 2017. Basophil pct 0.3 % [facility] Comment: Interpretive Data Percent cell count reference ranges are not reported, since discordance with absolute values may lead to misinterpretation of CBC data. Current Interpretive Data was last revised on 2017. Blood 03/26/2024 5:05 AM AOC [employer]PER[employer] INTELLIGENCE CHIEF 03/26/2024 5:18 AM AOC OPERATIONS INTELLIGENCE CHIEF us Ricki Mills MD LAB BLOOD ORDERABLES Final Result [facility] [address] [facility] Department of Laboratories [place], [place] [id number] * (ABNORMAL) CBC with auto differential (03/26/2024 5:05 AM AOC OPERATIONS INTELLIGENCE CHIEF) [facility] WBC 6.7 3.8 - 9.9 K/cumm Hgb 7.7(L) 13.0 - 17.5 g/dL [facility] Hct 23.9(L) 38.9 - 50.3 % [facility] Plt 183 150 - 400 K/cumm [facility] MPV 9.4 9.1 - 12.3 fL [facility] RBC 2.90(L) 4.30 - 5.80 M/cumm [facility] MCV 82.4 81.3 - 96.4 fL [facility] MCH 26.6(L) 27.1 - 33.3 pg [facility] MCHC 32.2(L) 32.3 - 35.7 g/dL [facility] RDW CV 16.3(H) 11.1 - 14.9 % [facility] RDW SD 50.1(H) 35.7 - 48.1 fL [facility] NRBC abs 0.00 0.00 - 0.01 K/cumm [facility] Blood 03/26/2024 5:05 AM AOC OPERATIONS INTELLIGENCE CHIEF 03/26/2024 5:18 AM AOC OPERATIONS INTELLIGENCE CHIEF us Ricki Mills MD LAB BLOOD ORDERABLES Final Result [address] [place] [address] * ABO/Rh (03/26/2024 5:05 AM AOC OPERATIONS INTELLIGENCE CHIEF) [facility] ABO/Rh O Negative Blood 03/26/2024 5:05 AM AOC OPERATIONS INTELLIGENCE CHIEF 03/26/2024 5:17 AM AOC OPERATIONS INTELLIGENCE CHIEF Narrative [facility] - 03/26/2024 5:53 AM AOC OPERATIONS INTELLIGENCE CHIEF Has the patient had Daratumumab or Isatuximab in the past 6 months?->Unknown us Anjali Kline NP LAB BLOOD BANK TEST ORDERABLES Final Result [address] [place] [employer] [place] [address] * Crossmatch (03/26/2024 5:05 AM AOC OPERATIONS INTELLIGENCE CHIEF) Pathologist [facility] Crossmatch Compatible [facility] Unit number for crossmatch [id number] [facility] Blood 03/26/2024 5:05 AM AOC OPERATIONS INTELLIGENCE CHIEF 03/26/2024 5:17 AM AOC OPERATIONS INTELLIGENCE CHIEF Inocencia Fair MD LAB BLOOD BANK TEST OR DERABLES Final Result Performing Organization Address [facility] de Phone Number [address] [place] [address] * Antibody screen (03/26/2024 5:05 AM AOC OPERATIONS INTELLIGENCE CHIEF) Pathologist [facility] Fermin, indirect, Gel Interpretation Negative ABSC Blood 03/26/2024 5:05 AM AOC OPERATIONS INTELLIGENCE CHIEF 03/26/2024 5:17 AM AOC OPERATIONS INTELLIGENCE CHIEF Narrative [facility] - 03/26/2024 5:53 AM AOC OPERATIONS INTELLIGENCE CHIEF Has the patient had Daratumumab or Isatuximab in the past 6 months?->Unknown Anjali Kline NP LAB BLOOD BANK TEST ORDERABLES Final Result Performing Organization Address [facility] de Phone Number [address] [address] * Vancomycin level random (03/26/2024 5:05 AM AOC OPERATIONS INTELLIGENCE CHIEF) [facility] Vancomycin random 15.6 mcg/mL Comment: Interpretive Data No reference ranges have been established for random drug levels. Current Interpretive Data was last revised on 2020. Blood 03/26/2024 5:05 AM AOC OPERATIONS INTELLIGENCE CHIEF 03/26/2024 9:48 AM AOC OPERATIONS INTELLIGENCE CHIEF Inocencia Fair MD LAB BLOOD ORDERABLES F inal Result Performing Organization Address [facility] de Phone Number [address] [place] [address] * (ABNORMAL) Basic metabolic panel (03/26/2024 5:05 AM AOC OPERATIONS INTELLIGENCE CHIEF) Sodium 130(L) 135 - 145 mmol/L Potassium, pl 5.0(H) 3.3 - 4.9 mmol/L [facility] Chloride 90(L) 97 - 110 mmol/L [facility] CO2 24 22 - 32 mmol/L [facility] Anion gap 16(H) 2 - 15 mmol/L [facility] BUN 53(H) 6 - 25 mg/dL [facility] Creatinine 9.19(H) 0.80 - 1.30 mg/dL [facility] Glucose 185 70 - 199 mg/dL [facility] Comment: Interpretive Data Fasting glucose >/= 126 [...] 2022. Calcium 8.7 8.5 - 10.3 mg/dL [facility] Blood 03/26/2024 5:05 AM AOC OPERATIONS INTELLIGENCE CHIEF 03/26/2024 5:18 AM AOC OPERATIONS INTELLIGENCE CHIEF us Ricki Mills MD LAB BLOOD ORDERABLES Final Result Performing Organization Address City/[facility]/ZIP Co de Phone Number [facility] [address] [facility] Department [place] [address] * POCT glucose (03/25/2024 5:20 PM AOC OPERATIONS INTELLIGENCE CHIEF) Glucose, POC 189 70 - 199 mg/dL Glucose comment 1 RN/ Notified [facility] Blood 03/25/2024 5:20 PM AOC OPERATIONS INTELLIGENCE CHIEF 03/25/2024 5:20 PM AOC OPERATIONS INTELLIGENCE CHIEF us Inocencia Fair MD LAB POCT ORDERABLES - DEVICE Final Result [address] [place] [address] * POCT glucose (03/25/2024 12:18 PM AOC OPERATIONS INTELLIGENCE CHIEF) Glucose, POC 127 70 - 199 mg/dL Glucose comment 1 RN/MD Notified [facility] Blood 03/25/2024 12:1 8 PM AOC OPERATIONS INTELLIGENCE CHIEF 03/25/2024 12:18 PM AOC OPERATIONS INTELLIGENCE CHIEF Inocencia Fair MD LAB POCT ORDERABLES - DEVICE Final Result Performing Organization Address [facility] Co de Phone Number [address] [address] * POCT glucose (03/25/2024 10:34 AM AOC OPERATIONS INTELLIGENCE CHIEF) Glucose, POC 151 70 - 199 mg/dL Glucose comment 1 RN/MD Notified [facility] Blood 03/25/2024 10:3 4 AM AOC OPERATIONS INTELLIGENCE CHIEF 03/25/2024 10:34 AM AOC OPERATIONS INTELLIGENCE CHIEF us Inocencia Fair MD LAB POCT ORDERABLES - DEVICE Final Result Performing Organization Address [facility] de Phone Number [address] [address] * ANGIOGRAPHY UNILATERAL EXTREMITY S&I [id number], ATHERECTOMY - PERIPHERAL (03/25/2024 9:37 AM AOC OPERATIONS INTELLIGENCE CHIEF) Anatomical Region Laterality Modality X-Ray Angiograph y Narrative 03/25/2024 9:38 AM AOC OPERATIONS INTELLIGENCE CHIEF Please see OpNote for result. us Anjali Kline NP CV CARDIAC CATH PROCEDURES Nita mimi Result * (ABNORMAL) POCT glucose (03/24/2024 8:10 PM AOC OPERATIONS INTELLIGENCE CHIEF) Glucose, POC 242(H) 70 - 199 mg/dL Blood 03/24/2024 8:10 PM AOC OPERATIONS INTELLIGENCE CHIEF 03/24/2024 8:10 PM AOC OPERATIONS INTELLIGENCE CHIEF Tony Mari MD LAB POCT ORDERABLES - DEVICE Final Result Performing Organization Address City/[facility] Co de Phone Number [facility] [place] [address] * POCT glucose (03/24/2024 4:57 PM AOC OPERATIONS INTELLIGENCE CHIEF) Glucose, POC 148 70 - 199 mg/dL Blood 03/24/2024 4:57 PM AOC OPERATIONS INTELLIGENCE CHIEF 03/24/2024 4:57 PM AOC OPERATIONS INTELLIGENCE CHIEF Tony Mari MD LAB POCT ORDERABLES - DEVICE Final Result Performing Organization Address [facility] de Phone Number [facility] [place] [address] * MRI Foot Right WO Contrast (03/24/2024 3:20 PM AOC OPERATIONS INTELLIGENCE CHIEF) Anatomical Region Laterality Modality Lower Extremities Right Magnetic Reson ance 03/24/2024 3:59 PM AOC OPERATIONS INTELLIGENCE CHIEF Narrative 03/24/2024 4:12 PM AOC OPERATIONS INTELLIGENCE CHIEF EXAM DESCRIPTION: MRI FOOT RIGHT WO CONTRAST [...] signed by Ananda MARMOLEJO T: Report ID: [id number] Reading Location: [id number] Procedure Note Ananda Mike MD - 03/24/2024 [...] signed by Ananda MARMOLEJO T: Report ID: [id number] Reading Location: [id number] Carmen Graham MD IMG MRI PROCEDU RES Final Result * POCT glucose (03/24/2024 12:35 PM AOC OPERATIONS INTELLIGENCE CHIEF) Glucose, POC 132 70 - 199 mg/dL Blood 03/24/2024 12:3 5 PM AOC OPERATIONS INTELLIGENCE CHIEF 03/24/2024 12:35 PM AOC OPERATIONS INTELLIGENCE CHIEF Tony Mari MD LAB POCT ORDERABLES - DEVICE Final Result Performing Organization Address [facility] Co de Phone Number JESSIE [address] [place] [address] * (ABNORMAL) eGFR (03/24/2024 5:20 AM AOC OPERATIONS INTELLIGENCE CHIEF) [facility] eGFR 7(L) >=60 mL/min/1. 73 [...] last reviewed 2021. Blood 03/24/2024 5:20 AM AOC OPERATIONS INTELLIGENCE CHIEF 03/24/2024 5:31 AM AOC OPERATIONS INTELLIGENCE CHIEF Carmen Graham MD LAB BLOOD ORDER THEODORE Final Result Performing Organization Address City/[facility]/ZIP Co de Phone Number [address] [employer] [place] [employer] [place] [address] * Differential, auto (03/24/2024 5:20 AM AOC OPERATIONS INTELLIGENCE CHIEF) [facility] Neutrophil abs 5.2 1.5 - 6.5 K/cumm Imm gran abs 0.0 0.0 - 0.1 K/cumm [facility] Lymphocyte abs 0.8 0.8 - 3.3 K/cumm [facility] Monocyte abs 0.5 0.2 - 0.8 K/cumm [facility] Eosinophil abs 0.0 0.0 - 0.5 K/cumm [facility] Basophil abs 0.0 0.0 - 0.1 K/cumm [facility] Neutrophil pct 80.2 % [facility] Comment: Interpretive Data Percent cell count reference ranges are not reported, since discordance with absolute values may lead to misinterpretation of CBC data. Current Interpretive Data was last revised on 2017. Imm gran pct 0.5 % [facility] Comment: Interpretive Data Percent cell count reference ranges are not reported, since discordance with absolute values may lead to misinterpretation of CBC data. Current Interpretive Data was last revised on 2017. Lymphocyte pct 11.8 % [facility] Comment: Interpretive Data Percent cell count reference ranges are not reported, since discordance with absolute values may lead to misinterpretation of CBC data. Current Interpretive Data was last revised on 2017. Monocyte pct 7.0 % [facility] Comment: Interpretive Data Percent cell count reference ranges are not reported, since discordance with absolute values may lead to misinterpretation of CBC data. Current Interpretive Data was last revised on 2017. Eosinophil pct 0.3 % [facility] Comment: Interpretive Data Percent cell count reference ranges are not reported, since discordance with absolute values may lead to misinterpretation of CBC data. Current Interpretive Data was last revised on 2017. Basophil pct 0.2 % [facility] Comment: Interpretive Data Percent cell count reference ranges are not reported, since discordance with absolute values may lead to misinterpretation of CBC data. Current Interpretive Data was last revised on 2017. Blood 03/24/2024 5:20 AM AOC OPERATIONS INTELLIGENCE CHIEF 03/24/2024 5:31 AM AOC OPERATIONS INTELLIGENCE CHIEF us Tony Mari MD LAB BLOOD ORDERABLES Final Result JESSIE [address] [facility] Department [place] [address] * (ABNORMAL) CBC with auto differential (03/24/2024 5:20 AM AOC OPERATIONS INTELLIGENCE CHIEF) Pathologist [facility] WBC 6.5 3.8 - 9.9 K/cumm Hgb 7.6(L) 13.0 - 17.5 g/dL [facility] Hct 22.9(L) 38.9 - 50.3 % [facility] Plt 176 150 - 400 K/cumm [facility] MPV 10.0 9.1 - 12.3 fL [facility] RBC 2.79(L) 4.30 - 5.80 M/cumm [facility] MCV 82.1 81.3 - 96.4 fL [facility] MCH 27.2 27.1 - 33.3 pg [facility] MCHC 33.2 32.3 - 35.7 g/dL [facility] RDW CV 15.9(H) 11.1 - 14.9 % [facility] RDW SD 48.1 35.7 - 48.1 fL [facility] NRBC abs 0.00 0.00 - 0.01 K/cumm [facility] Blood 03/24/2024 5:20 AM AOC OPERATIONS INTELLIGENCE CHIEF 03/24/2024 5:31 AM AOC OPERATIONS INTELLIGENCE CHIEF us Ricki Mills MD LAB BLOOD ORDERABLES Final Result Performing Organization Address City/[facility]/ZIP Co de Phone Number [address] [place] [employer] [place] [address] * Vancomycin level random (03/24/2024 5:20 AM AOC OPERATIONS INTELLIGENCE CHIEF) [facility] Vancomycin random 17.0 mcg/mL Comment: Interpretive Data No reference ranges have been established for random drug levels. Current Interpretive Data was last revised on 2020. Blood 03/24/2024 5:20 AM AOC OPERATIONS INTELLIGENCE CHIEF 03/24/2024 5:31 AM AOC OPERATIONS INTELLIGENCE CHIEF us Tony Mari MD LAB BLOOD ORDERABLES Final Result Performing Organization Address [facility]/ZIP Co de Phone Number [address] [place] [address] * (ABNORMAL) Basic metabolic panel (03/24/2024 5:20 AM AOC OPERATIONS INTELLIGENCE CHIEF) Sodium 129(L) 135 - 145 mmol/L Potassium, pl 5.1(H) 3.3 - 4.9 mmol/L [facility] Chloride 89(L) 97 - 110 mmol/L [facility] CO2 26 22 - 32 mmol/L [facility] Anion gap 14 2 - 15 mmol/L [facility] BUN 58(H) 6 - 25 mg/dL [facility] Creatinine 8.42(H) 0.80 - 1.30 mg/dL [facility] Glucose 211(H) 70 - 199 mg/dL [facility] Comment: Interpretive Data Fasting glucose >/= 126 [...] 2022. Calcium 7.8(L) 8.5 - 10.3 mg/dL [facility] Blood 03/24/2024 5:20 AM AOC OPERATIONS INTELLIGENCE CHIEF 03/24/2024 5:31 AM AOC OPERATIONS INTELLIGENCE CHIEF Ricki Mills MD LAB BLOOD ORDERABLES Final Result Performing Organization Address City/[facility]/ZIP Co de Phone Number [address] [place] [employer] [place] [address] * POCT glucose (03/24/2024 4:58 AM AOC OPERATIONS INTELLIGENCE CHIEF) Pathologist [facility] Glucose, POC 196 70 - 199 mg/dL Blood 03/24/2024 4:58 AM AOC OPERATIONS INTELLIGENCE CHIEF 03/24/2024 4:58 AM AOC OPERATIONS INTELLIGENCE CHIEF Tony Mari MD LAB POCT ORDERABLES - DEVICE Final Result Performing Organization Address City/[facility]/ZIP Co de Phone Number CERNER [address] [address] * Transfuse RBC (03/23/2024 8:13 PM AOC OPERATIONS INTELLIGENCE CHIEF) Blood Tony Mari MD BLOOD TRANSFUSION ORD ERABLES Final Result Performing Organization Address City/[facility]/ZIP Co de Phone Number [address] [address] * (ABNORMAL) POCT glucose (03/23/2024 8:08 PM AOC OPERATIONS INTELLIGENCE CHIEF) Glucose, POC 292(H) 70 - 199 mg/dL Blood 03/23/2024 8:08 PM AOC OPERATIONS INTELLIGENCE CHIEF 03/23/2024 8:08 PM AOC OPERATIONS INTELLIGENCE CHIEF Tony Mari MD LAB POCT ORDERABLES - DEVICE Final Result Performing Organization Address [facility] Co de Phone Number JESSIE [address] [address] * (ABNORMAL) POCT glucose (03/23/2024 5:17 PM AOC OPERATIONS INTELLIGENCE CHIEF) Glucose, POC 325(H) 70 - 199 mg/dL Glucose comment 1 RN/MD Notified JESSIE Blood 03/23/2024 5:17 PM AOC OPERATIONS INTELLIGENCE CHIEF 03/23/2024 5:17 PM AOC OPERATIONS INTELLIGENCE CHIEF Tony Mari MD LAB POCT ORDERABLES - DEVICE Final Result Performing Organization Address City/[facility]/ZIP Co de Phone Number [address] [address] * Prepare RBC: 1 Units (03/23/2024 1:54 PM AOC OPERATIONS INTELLIGENCE CHIEF) Units requested 1 Units requested Ready JESSIE Unit Number [id number] Product code [id number] JESSIE Blood Expiration Date [id number] JESSIE Product Blood Type (for scanning) 9500 JESSIE Product Blood Type ONEG [facility] Dispense Status DISPENSED [facility] Blood 03/23/2024 1:54 PM AOC OPERATIONS INTELLIGENCE CHIEF 03/23/2024 1:54 PM AOC OPERATIONS INTELLIGENCE CHIEF Tony Mari MD BLOOD BANK PRODUCT OR DERABLES Final Result Performing Organization Address [facility]/ZIP Co de Phone Number JESSIE [address] [place] [address] * ABO / Rh Confirmation Testing (03/23/2024 12:40 PM AOC OPERATIONS INTELLIGENCE CHIEF) ABO/Rh Confirmation O Negative [facility] Blood 03/23/2024 12:4 0 PM AOC OPERATIONS INTELLIGENCE CHIEF 03/23/2024 12:45 PM AOC OPERATIONS INTELLIGENCE CHIEF Tony Mari MD LAB BLOOD ORDERABLES Final Result Performing Organization Address [facility] Co de Phone Number SATISH[address] [place] [address] [facility]HB * ABO/Rh (03/23/2024 11:41 AM AOC OPERATIONS INTELLIGENCE CHIEF) ABO/Rh O Negative Blood 03/23/2024 11:4 1 AM AOC OPERATIONS INTELLIGENCE CHIEF 03/23/2024 12:10 PM AOC OPERATIONS INTELLIGENCE CHIEF Narrative [facility] - 03/23/2024 1:38 PM AOC OPERATIONS INTELLIGENCE CHIEF Has the patient had Daratumumab or Isatuximab in the past 6 months?->Unknown Tony Mari MD LAB BLOOD BANK TEST O RDERABLES Final Result Performing Organization Address [facility] Co de Phone Number [address] [place] [address] * Crossmatch (03/23/2024 11:41 AM AOC OPERATIONS INTELLIGENCE CHIEF) Crossmatch Compatible [facility] Unit number for crossmatch [id number] JESSIE Blood 03/23/2024 11:4 1 AM AOC OPERATIONS INTELLIGENCE CHIEF 03/23/2024 12:10 PM AOC OPERATIONS INTELLIGENCE CHIEF Tony Mari MD LAB BLOOD BANK TEST O RDERABLES Final Result Performing Organization Address [facility] de Phone Number [address] [address] * Antibody screen (03/23/2024 11:41 AM AOC OPERATIONS INTELLIGENCE CHIEF) [facility] Fermin, indirect, Gel Interpretation Negative [facility] Blood 03/23/2024 11:4 1 AM AOC OPERATIONS INTELLIGENCE CHIEF 03/23/2024 12:10 PM AOC OPERATIONS INTELLIGENCE CHIEF Narrative [facility] - 03/23/2024 1:38 PM AOC OPERATIONS INTELLIGENCE CHIEF Has the patient had Daratumumab or Isatuximab in the past 6 months?->Unknown Tony Mari MD LAB BLOOD BANK TEST O RDERABLES Final Result Performing Organization Address [facility] de Phone Number [address] [place] [address] * POCT glucose (03/23/2024 8:15 AM AOC OPERATIONS INTELLIGENCE CHIEF) [facility] Glucose, POC 147 70 - 199 mg/dL Blood 03/23/2024 8:15 AM AOC OPERATIONS INTELLIGENCE CHIEF 03/23/2024 8:15 AM AOC OPERATIONS INTELLIGENCE CHIEF Tony Mari MD LAB POCT ORDERABLES - DEVICE Final Result Performing Organization Address [facility] de Phone Number [address] [place] [address] * (ABNORMAL) eGFR (03/23/2024 6:15 AM AOC OPERATIONS INTELLIGENCE CHIEF) [facility] eGFR 10(L) >=60 mL/min/1. 73 m2 Comment: [...] of Race in Diagnosing Kidney Disease, JASN 202). The CKD-EPI equation should not be used for patients with unstable renal function and has not been validated in children and those over 70. Current interpretive data was last reviewed 2021. Blood 03/23/2024 6:15 AM AOC OPERATIONS INTELLIGENCE CHIEF 03/23/2024 6:55 AM AOC OPERATIONS INTELLIGENCE CHIEF Carmen Graham MD LAB BLOOD ORDER THEODORE Final Result [place] [id number] [facility] Department [place] [address] * Differential, auto (03/23/2024 6:15 AM AOC OPERATIONS INTELLIGENCE CHIEF) Neutrophil abs 3.7 1.5 - 6.5 K/cumm Imm gran abs 0.0 0.0 - 0.1 K/cumm [facility] Lymphocyte abs 1.0 0.8 - 3.3 K/cumm [facility] Monocyte abs 0.4 0.2 - 0.8 K/cumm [facility] Eosinophil abs 0.0 0.0 - 0.5 K/cumm [facility] Basophil abs 0.0 0.0 - 0.1 K/cumm [facility] Neutrophil pct 72.0 % [facility] Comment: Interpretive Data Percent cell count reference ranges are not reported, since discordance with absolute values may lead to misinterpretation of CBC data. Current Interpretive Data was last revised on 2017. Imm gran pct 0.4 % [facility] Comment: Interpretive Data Percent cell count reference ranges are not reported, since discordance with absolute values may lead to misinterpretation of CBC data. Current Interpretive Data was last revised on 2017. Lymphocyte pct 18.6 % [facility] Comment: Interpretive Data Percent cell count reference ranges are not reported, since discordance with absolute values may lead to misinterpretation of CBC data. Current Interpretive Data was last revised on 2017. Monocyte pct 8.4 % [facility] Comment: Interpretive Data Percent cell count reference ranges are not reported, since discordance with absolute values may lead to misinterpretation of CBC data. Current Interpretive Data was last revised on 2017. Eosinophil pct 0.4 % [facility] Comment: Interpretive Data Percent cell count reference ranges are not reported, since discordance with absolute values may lead to misinterpretation of CBC data. Current Interpretive Data was last revised on 2017. Basophil pct 0.2 % [facility] Comment: Interpretive Data Percent cell count reference ranges are not reported, since discordance with absolute values may lead to misinterpretation of CBC data. Current Interpretive Data was last revised on 2017. Blood 03/23/2024 6:15 AM AOC OPERATIONS INTELLIGENCE CHIEF 03/23/2024 6:55 AM AOC OPERATIONS INTELLIGENCE CHIEF us Tony Mari MD LAB BLOOD ORDERABLES Final Result [facility] [address] [facility] Department [place] [address] * (ABNORMAL) CBC with auto differential (03/23/2024 6:15 AM AOC OPERATIONS INTELLIGENCE CHIEF) WBC 5.1 3.8 - 9.9 K/cumm Hgb 6.9(L) 13.0 - 17.5 g/dL [facility] Hct 21.5(L) 38.9 - 50.3 % [facility] Plt 173 150 - 400 K/cumm [facility] MPV 10.1 9.1 - 12.3 fL [facility] RBC 2.60(L) 4.30 - 5.80 M/cumm [facility] MCV 82.7 81.3 - 96.4 fL [facility] MCH 26.5(L) 27.1 - 33.3 pg [facility] MCHC 32.1(L) 32.3 - 35.7 g/dL [facility] RDW CV 16.3(H) 11.1 - 14.9 % [facility] RDW SD 49.4(H) 35.7 - 48.1 fL [facility] NRBC abs 0.00 0.00 - 0.01 K/cumm [facility] Blood 03/23/2024 6:15 AM AOC OPERATIONS INTELLIGENCE CHIEF 03/23/2024 6:55 AM AOC OPERATIONS INTELLIGENCE CHIEF Ricki Mills MD LAB BLOOD ORDERABLES Final Result Performing Organization Address [facility] Co de Phone Number [address] Department [place] [address] * (ABNORMAL) Basic metabolic panel (03/23/2024 6:15 AM AOC OPERATIONS INTELLIGENCE CHIEF) Pathologist [facility] Sodium 131(L) 135 - 145 mmol/L Potassium, pl 4.5 3.3 - 4.9 mmol/L [facility] Chloride 91(L) 97 - 110 mmol/L [facility] CO2 28 22 - 32 mmol/L [facility] Anion gap 12 2 - 15 mmol/L [facility] BUN 40(H) 6 - 25 mg/dL [facility] Creatinine 6.28(H) 0.80 - 1.30 mg/dL [facility] Glucose 150 70 - 199 mg/dL [facility] Comment: Interpretive Data Fasting glucose >/= 126 [...] 2022. Calcium 7.7(L) 8.5 - 10.3 mg/dL [facility] Blood 03/23/2024 6:15 AM AOC OPERATIONS INTELLIGENCE CHIEF 03/23/2024 6:55 AM AOC OPERATIONS INTELLIGENCE CHIEF Ricki Mills MD LAB BLOOD ORDERABLES Final Result Performing Organization Address [facility] Co de Phone Number [address] [address] * (ABNORMAL) POCT glucose (03/22/2024 8:17 PM AOC OPERATIONS INTELLIGENCE CHIEF) Glucose, POC 261(H) 70 - 199 mg/dL Glucose comment 1 Use This Result [facility] Blood 03/22/2024 8:17 PM AOC OPERATIONS INTELLIGENCE CHIEF 03/22/2024 8:17 PM AOC OPERATIONS INTELLIGENCE CHIEF Tony Mari MD LAB POCT ORDERABLES - DEVICE Final Result [address] [address] * (ABNORMAL) POCT glucose (03/22/2024 6:38 PM AOC OPERATIONS INTELLIGENCE CHIEF) [facility] Signature Glucose, POC 271(H) 70 - 199 mg/dL Blood 03/22/2024 6:38 PM AOC OPERATIONS INTELLIGENCE CHIEF 03/22/2024 6:38 PM AOC OPERATIONS INTELLIGENCE CHIEF Tony Mari MD LAB POCT ORDERABLES - DEVICE Final Result Performing Organization Address City/[facility]/ZIP Co de Phone Number [address] [address] * POCT glucose (03/22/2024 12:46 PM AOC OPERATIONS INTELLIGENCE CHIEF) Glucose, POC 149 70 - 199 mg/dL Blood 03/22/2024 12:4 6 PM AOC OPERATIONS INTELLIGENCE CHIEF 03/22/2024 12:46 PM AOC OPERATIONS INTELLIGENCE CHIEF Tony Mari MD LAB POCT ORDERABLES - DEVICE Final Result [address] [address] * POCT glucose (03/22/2024 7:19 AM AOC OPERATIONS INTELLIGENCE CHIEF) Glucose, POC 167 70 - 199 mg/dL Blood 03/22/2024 7:19 AM AOC OPERATIONS INTELLIGENCE CHIEF 03/22/2024 7:19 AM AOC OPERATIONS INTELLIGENCE CHIEF Tony Mari MD LAB POCT ORDERABLES - DEVICE Final Result Performing Organization Address [facility] Co de Phone Number JESSIE [address] [place] [address] * (ABNORMAL) eGFR (03/22/2024 4:49 AM AOC OPERATIONS INTELLIGENCE CHIEF) eGFR 10(L) >=60 mL/min/1. 73 m2 Comment: [...] last reviewed 2021. Blood 03/22/2024 4:49 AM AOC OPERATIONS INTELLIGENCE CHIEF 03/22/2024 5:00 AM AOC OPERATIONS INTELLIGENCE CHIEF Tony Mari MD LAB BLOOD ORDERABLES Final Result Performing Organization Address [facility]/ZIP Co de Phone Number JESSIE [address] [place] [address] * Differential, auto (03/22/2024 4:49 AM AOC OPERATIONS INTELLIGENCE CHIEF) Neutrophil abs 3.6 1.5 - 6.5 K/cumm Imm gran abs 0.0 0.0 - 0.1 K/cumm [facility] Lymphocyte abs 0.8 0.8 - 3.3 K/cumm [facility] Monocyte abs 0.4 0.2 - 0.8 K/cumm [facility] Eosinophil abs 0.0 0.0 - 0.5 K/cumm [facility] Basophil abs 0.0 0.0 - 0.1 K/cumm [facility] Neutrophil pct 74.9 % [facility] Comment: Interpretive Data Percent cell count reference ranges are not reported, since discordance with absolute values may lead to misinterpretation of CBC data. Current Interpretive Data was last revised on 2017. Imm gran pct 0.2 % [facility] Comment: Interpretive Data Percent cell count reference ranges are not reported, since discordance with absolute values may lead to misinterpretation of CBC data. Current Interpretive Data was last revised on 2017. Lymphocyte pct 16.4 % [facility] Comment: Interpretive Data Percent cell count reference ranges are not reported, since discordance with absolute values may lead to misinterpretation of CBC data. Current Interpretive Data was last revised on 2017. Monocyte pct 7.7 % [facility] Comment: Interpretive Data Percent cell count reference ranges are not reported, since discordance with absolute values may lead to misinterpretation of CBC data. Current Interpretive Data was last revised on 2017. Eosinophil pct 0.6 % [facility] Comment: Interpretive Data Percent cell count reference ranges are not reported, since discordance with absolute values may lead to misinterpretation of CBC data. Current Interpretive Data was last revised on 2017. Basophil pct 0.2 % [facility] Comment: Interpretive Data Percent cell count reference ranges are not reported, since discordance with absolute values may lead to misinterpretation of CBC data. Current Interpretive Data was last revised on 2017. Blood 03/22/2024 4:49 AM AOC OPERATIONS INTELLIGENCE CHIEF 03/22/2024 4:59 AM AOC OPERATIONS INTELLIGENCE CHIEF us Tony Mari MD LAB BLOOD ORDERABLES Final Result JESSIE [address] [facility] Department [place] [address] * (ABNORMAL) CBC with auto differential (03/22/2024 4:49 AM AOC OPERATIONS INTELLIGENCE CHIEF) [facility] WBC 4.8 3.8 - 9.9 K/cumm Hgb 7.4(L) 13.0 - 17.5 g/dL [facility] Hct 23.1(L) 38.9 - 50.3 % [facility] Plt 167 150 - 400 K/cumm [facility] MPV 9.5 9.1 - 12.3 fL [facility] RBC 2.78(L) 4.30 - 5.80 M/cumm [facility] MCV 83.1 81.3 - 96.4 fL [facility] MCH 26.6(L) 27.1 - 33.3 pg [facility] MCHC 32.0(L) 32.3 - 35.7 g/dL [facility] RDW CV 16.3(H) 11.1 - 14.9 % [facility] RDW SD 50.0(H) 35.7 - 48.1 fL [facility] NRBC abs 0.00 0.00 - 0.01 K/cumm [facility] Blood 03/22/2024 4:49 AM AOC OPERATIONS INTELLIGENCE CHIEF 03/22/2024 4:59 AM AOC OPERATIONS INTELLIGENCE CHIEF us Ricki Mills MD LAB BLOOD ORDERABLES Final Result Performing Organization Address [facility] Co de Phone Number [address] [place] [employer] [place] [address] * Vancomycin level random (03/22/2024 4:49 AM AOC OPERATIONS INTELLIGENCE CHIEF) [facility] Vancomycin random 19.1 mcg/mL Comment: Interpretive Data No reference ranges have been established for random drug levels. Current Interpretive Data was last revised on 2020. Blood 03/22/2024 4:49 AM AOC OPERATIONS INTELLIGENCE CHIEF 03/22/2024 5:00 AM AOC OPERATIONS INTELLIGENCE CHIEF us Tony Mari MD LAB BLOOD ORDERABLES Final Result [address] [place] [employer] [place] [address] * (ABNORMAL) Basic metabolic panel (03/22/2024 4:49 AM AOC OPERATIONS INTELLIGENCE CHIEF) Pathologist [facility] Sodium 131(L) 135 - 145 mmol/L Potassium, pl 4.9 3.3 - 4.9 mmol/L [facility] Chloride 91(L) 97 - 110 mmol/L [facility] CO2 27 22 - 32 mmol/L [facility] Anion gap 13 2 - 15 mmol/L [facility] BUN 42(H) 6 - 25 mg/dL [facility] Creatinine 6.22(H) 0.80 - 1.30 mg/dL [facility] Glucose 170 70 - 199 mg/dL [facility] Comment: Interpretive Data Fasting glucose >/= 126 [...] 2022. Calcium 6.5(C) 8.5 - 10.3 mg/dL [facility] Comment:Critical Result call ed to and read back by [id number], DATE: 2024-03-22 05:53:08 BY: [id number] Blood 03/22/2024 4:49 AM AOC OPERATIONS INTELLIGENCE CHIEF 03/22/2024 5:00 AM AOC OPERATIONS INTELLIGENCE CHIEF us Tony Mari MD LAB BLOOD ORDERABLES Final Result JESSIE [address] [facility] Department [place] [address] * (ABNORMAL) POCT glucose (03/21/2024 8:14 PM AOC OPERATIONS INTELLIGENCE CHIEF) Glucose, POC 239(H) 70 - 199 mg/dL Glucose comment 1 Use This Result [facility] Blood 03/21/2024 8:14 PM AOC OPERATIONS INTELLIGENCE CHIEF 03/21/2024 8:14 PM AOC OPERATIONS INTELLIGENCE CHIEF Tony Mari MD LAB POCT ORDERABLES - DEVICE Final Result Performing Organization Address City/[facility] Co de Phone Number SATISH[address] [place] [address] * (ABNORMAL) POCT glucose (03/21/2024 5:29 PM AOC OPERATIONS INTELLIGENCE CHIEF) [facility] Glucose, POC 236(H) 70 - 199 mg/dL Blood 03/21/2024 5:29 PM AOC OPERATIONS INTELLIGENCE CHIEF 03/21/2024 5:29 PM AOC OPERATIONS INTELLIGENCE CHIEF Tony Mari MD LAB POCT ORDERABLES - DEVICE Final Result Performing Organization Address [facility] Phone Number SATISH[address] [place] [address] * US Arterial Doppler Lower Extremity Bilateral (03/21/2024 1:52 PM AOC OPERATIONS INTELLIGENCE CHIEF) Anatomical Region Laterality Modality Vascular Bilateral Ultrasound 03/21/2024 Narrative 03/25/2024 8:54 AM AOC OPERATIONS INTELLIGENCE CHIEF [employer] Job ID: [id number] [employer] Document ID: [id number] Dictated date/time: [id number] BILATERAL LOWER EXTREMITY ARTERIAL DOPPLER REASON FOR [...] inframalleolar occlusive disease. Job ID/Internal Job ID: [id number] us Anjel Ochoa MD IMG US PROCEDURES Final Res ult * POCT glucose (03/21/2024 12:14 PM AOC OPERATIONS INTELLIGENCE CHIEF) Glucose, POC 157 70 - 199 mg/dL Blood 03/21/2024 12:1 4 PM AOC OPERATIONS INTELLIGENCE CHIEF 03/21/2024 12:14 PM AOC OPERATIONS INTELLIGENCE CHIEF Tony Mari MD LAB POCT ORDERABLES - DEVICE Final Result Performing Organization Address City/[facility]/ZIP Co de Phone Number JESSIE [address] [place] [employer] [place] [address] * (ABNORMAL) eGFR (03/21/2024 7:37 AM AOC OPERATIONS INTELLIGENCE CHIEF) Pathologist [facility] eGFR 8(L) >=60 mL/min/1. 73 m2 Comment: [...] last reviewed 2021. Blood 03/21/2024 7:37 AM AOC OPERATIONS INTELLIGENCE CHIEF 03/21/2024 7:42 AM AOC OPERATIONS INTELLIGENCE CHIEF Carmen Graham MD LAB BLOOD ORDER THEODORE Final Result Performing Organization Address City/[facility]/ZIP Co de Phone Number SATISH[address] [place] [employer] [place] [address] * (ABNORMAL) Differential, auto (03/21/2024 7:37 AM AOC OPERATIONS INTELLIGENCE CHIEF) Pathologist [facility] Neutrophil abs 2.7 1.5 - 6.5 K/cumm Imm gran abs 0.0 0.0 - 0.1 K/cumm [facility] Lymphocyte abs 0.7(L) 0.8 - 3.3 K/cumm [facility] Monocyte abs 0.3 0.2 - 0.8 K/cumm [facility] Eosinophil abs 0.0 0.0 - 0.5 K/cumm [facility] Basophil abs 0.0 0.0 - 0.1 K/cumm [facility] Neutrophil pct 73.1 % [facility] Comment: Interpretive Data Percent cell count reference ranges are not reported, since discordance with absolute values may lead to misinterpretation of CBC data. Current Interpretive Data was last revised on 2017. Imm gran pct 0.3 % [facility] Comment: Interpretive Data Percent cell count reference ranges are not reported, since discordance with absolute values may lead to misinterpretation of CBC data. Current Interpretive Data was last revised on 2017. Lymphocyte pct 18.3 % [facility] Comment: Interpretive Data Percent cell count reference ranges are not reported, since discordance with absolute values may lead to misinterpretation of CBC data. Current Interpretive Data was last revised on 2017. Monocyte pct 7.5 % [facility] Comment: Interpretive Data Percent cell count reference ranges are not reported, since discordance with absolute values may lead to misinterpretation of CBC data. Current Interpretive Data was last revised on 2017. Eosinophil pct 0.8 % [facility] Comment: Interpretive Data Percent cell count reference ranges are not reported, since discordance with absolute values may lead to misinterpretation of CBC data. Current Interpretive Data was last revised on 2017. Basophil pct 0.0 % [facility] Comment: Interpretive Data Percent cell count reference ranges are not reported, since discordance with absolute values may lead to misinterpretation of CBC data. Current Interpretive Data was last revised on 2017. Blood 03/21/2024 7:37 AM AOC OPERATIONS INTELLIGENCE CHIEF 03/21/2024 7:42 AM AOC OPERATIONS INTELLIGENCE CHIEF Royer Odom MD LAB BLOOD ORDERABLES Final Re sult [address] [place] [address] * (ABNORMAL) Thyroid Function Rabun (03/21/2024 7:37 AM AOC OPERATIONS INTELLIGENCE CHIEF) Pathologist [facility] TSH 17.70(H) 0.30 - 4.20 mcIUnit/mL Blood 03/21/2024 7:3 7 AM AOC OPERATIONS INTELLIGENCE CHIEF 03/21/2024 7:42 AM AOC OPERATIONS INTELLIGENCE CHIEF Tony Mari MD LAB BLOOD ORDERABLES Final Result Performing Organization Address City/[facility] Co de Phone Number [address] [address] * (ABNORMAL) CBC with auto differential (03/21/2024 7:37 AM AOC OPERATIONS INTELLIGENCE CHIEF) [facility] WBC 3.7(L) 3.8 - 9.9 K/cumm Hgb 7.5(L) 13.0 - 17.5 g/dL [facility] Hct 22.9(L) 38.9 - 50.3 % [facility] Plt 162 150 - 400 K/cumm [facility] MPV 10.0 9.1 - 12.3 fL [facility] RBC 2.81(L) 4.30 - 5.80 M/cumm [facility] MCV 81.5 81.3 - 96.4 fL [facility] MCH 26.7(L) 27.1 - 33.3 pg [facility] MCHC 32.8 32.3 - 35.7 g/dL [facility] RDW CV 16.1(H) 11.1 - 14.9 % [facility] RDW SD 48.6(H) 35.7 - 48.1 fL [facility] NRBC abs 0.00 0.00 - 0.01 K/cumm [facility] Blood 03/21/2024 7:37 AM AOC OPERATIONS INTELLIGENCE CHIEF 03/21/2024 7:42 AM AOC OPERATIONS INTELLIGENCE CHIEF Royer Odom MD LAB BLOOD ORDERABLES Final Re sult Performing Organization Address [facility] de Phone Number [address] [place] [address] * (ABNORMAL) T4, free (03/21/2024 7:37 AM AOC OPERATIONS INTELLIGENCE CHIEF) [facility] Free T4 0.58(L) 0.90 - 1.70 ng/dL Blood 03/21/2024 7:37 AM AOC OPERATIONS INTELLIGENCE CHIEF 03/21/2024 7:42 AM AOC OPERATIONS INTELLIGENCE CHIEF Narrative [facility] - 03/21/2024 9:28 AM AOC OPERATIONS INTELLIGENCE CHIEF This test was reflexed from a TSH result. Tony Mari MD LAB BLOOD ORDERABLES Final Result Performing Organization Address [facility] de Phone Number [address] [address] * Vancomycin level random (03/21/2024 7:37 AM AOC OPERATIONS INTELLIGENCE CHIEF) [facility] Vancomycin random <4.0 mcg/mL Comment: Interpretive Data No reference ranges have been established for random drug levels. Current Interpretive Data was last revised on 2020. Blood 03/21/2024 7:37 AM AOC OPERATIONS INTELLIGENCE CHIEF 03/21/2024 7:42 AM AOC OPERATIONS INTELLIGENCE CHIEF Tony Mari MD LAB BLOOD ORDERABLES Final Result Performing Organization Address [facility] Co de Phone Number [address] [place] [address] * (ABNORMAL) Basic metabolic panel (03/21/2024 7:37 AM AOC OPERATIONS INTELLIGENCE CHIEF) [facility] Sodium 130(L) 135 - 145 mmol/L Potassium, pl 5.0(H) 3.3 - 4.9 mmol/L [facility] Chloride 91(L) 97 - 110 mmol/L [facility] CO2 26 22 - 32 mmol/L [facility] Anion gap 13 2 - 15 mmol/L [facility] BUN 63(H) 6 - 25 mg/dL [facility] Creatinine 8.14(H) 0.80 - 1.30 mg/dL [facility] Glucose 227(H) 70 - 199 mg/dL [facility] Comment: Interpretive Data Fasting glucose >/= 126 [...] 2022. Calcium 7.1(L) 8.5 - 10.3 mg/dL [facility] Blood 03/21/2024 7:37 AM AOC OPERATIONS INTELLIGENCE CHIEF 03/21/2024 7:42 AM AOC OPERATIONS INTELLIGENCE CHIEF Ricki Mills MD LAB BLOOD ORDERABLES Final Result [facility] [address] [facility] Department [place] [address] * (ABNORMAL) Aerobic culture and gram stain Wound Foot, right (03/21/2024 1:40 AM AOC OPERATIONS INTELLIGENCE CHIEF) Direct Specimen Exam Stain: No polymorphonuclear leukocytes seen. Abundant Gram Positive Cocci Moderate Gram Positive Bacilli Comment:Testing performed by : [facility], [address] [place]., [address] Report Final Report: Abundant Enterococcus faecalis Moderate Mixed microorganisms. (.) [facility] Comment:Testing performed by : [facility], [address] [place] [address], [place]., [address] Organism MIXED MICROORGANISMS. [facility] Organism ENTEROCOCCUS FAECALIS [facility] Wound (Foot, right) 03/21/2024 1:40 AM AOC OPERATIONS INTELLIGENCE CHIEF 03/21/2024 7:15 AM AOC OPERATIONS INTELLIGENCE CHIEF Narrative [facility] - 03/26/2024 7:14 AM AOC OPERATIONS INTELLIGENCE CHIEF Specimen received on an ESwab. Testing performed by [facility] Microbiology Laboratory ([phone]) Specimens submitted from normally sterile body sites [...] MICROBIOLOG Y - GENERAL ORDERABLES Final Result JESSIE [address] [facility] Department [place] [address] * Blood culture Blood Peripheral (03/20/2024 7:13 PM AOC OPERATIONS INTELLIGENCE CHIEF) Report Final Report: No growth Comment:Testing performed by : [facility], [address] [place]., [address] Blood (Peripheral) 03/20/2024 7:13 PM AOC OPERATIONS INTELLIGENCE CHIEF 03/20/2024 9:49 PM AOC OPERATIONS INTELLIGENCE CHIEF Narrative JESSIE - 03/25/2024 7:00 AM AOC OPERATIONS INTELLIGENCE CHIEF From a different site than #1. Draw [...] performance characteristics have been verified by the [facility] Microbiology Laboratory. For questions about this culture, contact the Microbiology Laboratory at [phone]. Interpretive data was last revised on 23. Sarah Donohue MD LAB MICROBIOLOGY - GEN ERAL ORDERABLES Final Result Performing Organization Address City/[facility] Co de Phone Number JESSIE [address] [facility] [place] [employer] [place] [address] * (ABNORMAL) eGFR (03/20/2024 7:12 PM AOC OPERATIONS INTELLIGENCE CHIEF) eGFR 10(L) >=60 mL/min/1. 73 m2 Comment: [...] last reviewed 2021. Blood 03/20/2024 7:12 PM AOC OPERATIONS INTELLIGENCE CHIEF 03/20/2024 7:15 PM AOC OPERATIONS INTELLIGENCE CHIEF Sarah Donohue MD LAB BLOOD ORDERABLES F inal Result Performing Organization Address City/[facility]/ZIP Co de Phone Number JESSIE [facility] Department [place] [address] * (ABNORMAL) Basic metabolic panel (03/20/2024 7:12 PM AOC OPERATIONS INTELLIGENCE CHIEF) [facility] Sodium 133(L) 135 - 145 mmol/L Potassium, pl 4.6 3.3 - 4.9 mmol/L [facility] Chloride 93(L) 97 - 110 mmol/L [facility] CO2 25 22 - 32 mmol/L [facility] Anion gap 15 2 - 15 mmol/L [facility] BUN 50(H) 6 - 25 mg/dL [facility] Creatinine 6.69(H) 0.80 - 1.30 mg/dL [facility] Glucose 153 70 - 199 mg/dL [facility] Comment: Interpretive Data Fasting glucose >/= 126 [...] 2022. Calcium 7.2(L) 8.5 - 10.3 mg/dL [facility] Blood 03/20/2024 7:12 PM AOC OPERATIONS INTELLIGENCE CHIEF 03/20/2024 7:15 PM AOC OPERATIONS INTELLIGENCE CHIEF Sarah Donohue MD LAB BLOOD ORDERABLES F inal Result JESSIE [address] [facility] Department [place] [address] * (ABNORMAL) Blood culture Blood Peripheral (03/20/2024 7:11 PM AOC OPERATIONS INTELLIGENCE CHIEF) [facility] Direct Specimen Exam Molecular Analysis: Staphylococcus epidermidis (methicillin-susce ptible) detected by [facility] BCID-GP panel. Single positive culture may represent contamination. This test does not exclude the possibility of a mixed bacterial infection. Notification of: Staphylococcus epidermidis (methicillin-susce ptible) called to and read back by: Nikko Horton MLS [phone] on 03/21/2024 22:09:44 by: Elyse Daniel MT Test result called to and read back by ORTEGA Velazquez on 03/21/2024 22:15:42 by Nikko Villegas MLS Comment:Testing performed by : [facility], [address] [place] [address]., [id number] Direct Specimen Exam Stain: Gram Positive Cocci in clusters Time to culture positivity (anaerobic media): 22.0 hours Notification of: Gram Positive Cocci in clusters called to and read back by: Hema Yang.DIRECTOR [employer] [phone] on 03/21/2024 20:19:58 by: Eugenia Almanzar.MT Test result called to and read back by Elian VIVAS [id number] on 03/21/242039 by [email or web address] JESSIE Comment:Testing performed by : [facility], [address] [place] [address]., [address] Report Final Report: Staphylococcus epidermidis Single blood culture positive for this microorganism. Isolate is a possible contaminant. If a similar isolate is recovered from a second blood culture collected within 3 days of this culture, both will be evaluated and, if determined to be the same species, antimicrobial susceptibility testing will be performed. (.) JESSIE Comment:Testing performed by : [facility], [address] [place] [address]., [address] Organism STAPHYLOCOCCUS EPIDERMIDIS JESSIE Blood (Peripheral) 03/20/2024 7:11 PM AOC OPERATIONS INTELLIGENCE CHIEF 03/20/2024 9:49 PM AOC OPERATIONS INTELLIGENCE CHIEF Narrative JESSIE - 03/25/2024 10:18 AM AOC OPERATIONS INTELLIGENCE CHIEF Draw Blood cultures before administration of Antibiotics [...] performance characteristics have been verified by the [facility] Microbiology Laboratory. For questions about this culture, contact the Microbiology Laboratory at [phone]. Interpretive data was last revised on 23. Sarah Donohue MD LAB MICROBIOLOGY - GEN ERAL ORDERABLES Final Result Performing Organization Address City/[facility]/ZIP Co de Phone Number JESSIE [address] [place] [address] * Potassium (03/20/2024 4:11 PM AOC OPERATIONS INTELLIGENCE CHIEF) Potassium, pl 4.7 3.3 - 4.9 mmol/L Blood 03/20/2024 4:11 PM AOC OPERATIONS INTELLIGENCE CHIEF 03/20/2024 4:22 PM AOC OPERATIONS INTELLIGENCE CHIEF Royer Odom MD LAB BLOOD ORDERABLES Final Re sult Performing Organization Address [facility] Co de Phone Number [address] [address] * XR Foot Right 3 or More Views (03/20/2024 1:30 PM AOC OPERATIONS INTELLIGENCE CHIEF) Anatomical Region Laterality Modality Lower Extremities, Foot Right Computed Radiography 03/20/2024 1:42 PM AOC OPERATIONS INTELLIGENCE CHIEF Narrative 03/20/2024 1:48 PM AOC OPERATIONS INTELLIGENCE CHIEF EXAM DESCRIPTION: XR FOOT RIGHT 3 OR [...] Hilda Pichardo M.D. FT T: Report ID: [id number] Reading Location: [id number] Procedure Note Hilda Constantino MD - 03/20/2024 [...] Hilda Pichardo M.D. FT T: Report ID: [id number] Reading Location: [place] [address] us Sarah Donohue MD IMG XR PROCEDURES Nita l Result * (ABNORMAL) eGFR (03/20/2024 1:19 PM AOC OPERATIONS INTELLIGENCE CHIEF) eGFR 6(L) >=60 mL/min/1. 73 m2 Comment: [...] of Race in Diagnosing Kidney Disease, JASN 202). The CKD-EPI equation should not be used for patients with unstable renal function and has not been validated in children and those over 70. Current interpretive data was last reviewed 2021. Blood 03/20/2024 1:19 PM AOC OPERATIONS INTELLIGENCE CHIEF 03/20/2024 1:34 PM AOC OPERATIONS INTELLIGENCE CHIEF us Sarah Donohue MD LAB BLOOD ORDERABLES F inal Result [facility] [address] [facility] Department [place] [address] * (ABNORMAL) Differential, auto (03/20/2024 1:19 PM AOC OPERATIONS INTELLIGENCE CHIEF) Neutrophil abs 4.1 1.5 - 6.5 K/cumm Imm gran abs 0.0 0.0 - 0.1 K/cumm [facility] Lymphocyte abs 0.7(L) 0.8 - 3.3 K/cumm [facility] Monocyte abs 0.4 0.2 - 0.8 K/cumm [facility] Eosinophil abs 0.1 0.0 - 0.5 K/cumm [facility] Basophil abs 0.0 0.0 - 0.1 K/cumm [facility] Neutrophil pct 78.1 % [facility] Comment: Interpretive Data Percent cell count reference ranges are not reported, since discordance with absolute values may lead to misinterpretation of CBC data. Current Interpretive Data was last revised on 2017. Imm gran pct 0.2 % [facility] Comment: Interpretive Data Percent cell count reference ranges are not reported, since discordance with absolute values may lead to misinterpretation of CBC data. Current Interpretive Data was last revised on 2017. Lymphocyte pct 13.7 % [facility] Comment: Interpretive Data Percent cell count reference ranges are not reported, since discordance with absolute values may lead to misinterpretation of CBC data. Current Interpretive Data was last revised on 2017. Monocyte pct 7.0 % [facility] Comment: Interpretive Data Percent cell count reference ranges are not reported, since discordance with absolute values may lead to misinterpretation of CBC data. Current Interpretive Data was last revised on 2017. Eosinophil pct 1.0 % [facility] Comment: Interpretive Data Percent cell count reference ranges are not reported, since discordance with absolute values may lead to misinterpretation of CBC data. Current Interpretive Data was last revised on 2017. Basophil pct 0.0 % [facility] Comment: Interpretive Data Percent cell count reference ranges are not reported, since discordance with absolute values may lead to misinterpretation of CBC data. Current Interpretive Data was last revised on 2017. Blood 03/20/2024 1:19 PM AOC OPERATIONS INTELLIGENCE CHIEF 03/20/2024 1:35 PM AOC OPERATIONS INTELLIGENCE CHIEF us Sarah Donohue MD LAB BLOOD ORDERABLES F inal Result JESSIE [address] [facility] Department [place] [address] * (ABNORMAL) CBC with auto differential (03/20/2024 1:19 PM AOC OPERATIONS INTELLIGENCE CHIEF) [facility] WBC 5.3 3.8 - 9.9 K/cumm Hgb 8.1(L) 13.0 - 17.5 g/dL [facility] Hct 25.3(L) 38.9 - 50.3 % [facility] Plt 181 150 - 400 K/cumm [facility] MPV 10.0 9.1 - 12.3 fL [facility] RBC 3.07(L) 4.30 - 5.80 M/cumm [facility] MCV 82.4 81.3 - 96.4 fL [facility] MCH 26.4(L) 27.1 - 33.3 pg [facility] MCHC 32.0(L) 32.3 - 35.7 g/dL [facility] RDW CV 16.3(H) 11.1 - 14.9 % [facility] RDW SD 49.1(H) 35.7 - 48.1 fL [facility] NRBC abs 0.00 0.00 - 0.01 K/cumm [facility] Blood Venous blood specimen / Unknown 03/20/2024 1:19 PM AOC OPERATIONS INTELLIGENCE CHIEF 03/20/2024 1:35 PM AOC OPERATIONS INTELLIGENCE CHIEF Sarah Donohue MD LAB BLOOD ORDERABLES F inal Result Performing Organization Address City/[facility] Co de Phone Number [address] [place] [address] * Lipase (03/20/2024 1:19 PM AOC OPERATIONS INTELLIGENCE CHIEF) [facility] Lipase 53 10 - 99 Units/L Blood 03/20/2024 1:19 PM AOC OPERATIONS INTELLIGENCE CHIEF 03/20/2024 1:34 PM AOC OPERATIONS INTELLIGENCE CHIEF Sarah Donohue MD LAB BLOOD ORDERABLES F inal Result Performing Organization Address City/[facility]/ZIP Co de Phone Number [address] [place] [address] * (ABNORMAL) Comprehensive metabolic panel (03/20/2024 1:19 PM AOC OPERATIONS INTELLIGENCE CHIEF) Sodium 130(L) 135 - 145 mmol/L Potassium, pl 6.6(C) 3.3 - 4.9 mmol/L [facility] Comment:Critical Result call ed to and read back by [id number], DATE: 2024-03-20 14:11:46 BY: [id number] Chloride 91(L) 97 - 110 mmol/L [facility] CO2 24 22 - 32 mmol/L [facility] Anion gap 15 2 - 15 mmol/L [facility] BUN 87(H) 6 - 25 mg/dL [facility] Creatinine 10.10(H) 0.80 - 1.30 mg/dL [facility] Glucose 129 70 - 199 mg/dL [facility] Comment: Interpretive Data Fasting glucose >/= 126 [...] 2022. Calcium 7.3(L) 8.5 - 10.3 mg/dL [facility] Bilirubin, total 0.6 0.1 - 1.2 mg/dL [facility] Protein, pl 6.9 6.5 - 8.5 g/dL [facility] Albumin 3.9 3.5 - 5.0 g/dL [facility] Alk phos 480(H) 40 - 130 Units/L [facility] ALT 13 7 - 55 Units/L [facility] AST 15 10 - 50 Units/L [facility] Blood Venous blood specimen / Unknown 03/20/2024 1:19 PM AOC [employer]PERATIONS INTELLIGENCE CHIEF 03/20/2024 1:34 PM AOC OPERATIONS INTELLIGENCE CHIEF us Sarah Donohue MD LAB BLOOD ORDERABLES F inal Result [facility] [address] [facility] Department [place] [address] * (ABNORMAL) Troponin T high-sensitivity 6-hour (03/12/2024 10:56 PM AOC OPERATIONS INTELLIGENCE CHIEF) Pathologist [facility] Trop T hs 136(H) <=22 ng/L Comment: Interpretive Data For further hscTnT resources including the diagnostic algorithm and an aid in interpretation, copy and paste this link: https://nrl.testcatalog.org/show/hsTrop Current Interpretive Data last revised 2020. Trop T hs interp Insignificant [facility] Blood 03/12/2024 10:5 6 PM AOC OPERATIONS INTELLIGENCE CHIEF 03/12/2024 10:56 PM AOC OPERATIONS INTELLIGENCE CHIEF Marshall Naranjo MD LAB BLOOD ORDERABLES Fi nal Result [facility] [address] [facility] Department [place] [address] * Differential, auto (03/12/2024 10:56 PM AOC OPERATIONS INTELLIGENCE CHIEF) Pathologist [facility] Neutrophil abs 2.3 1.5 - 6.5 K/cumm Imm gran abs 0.0 0.0 - 0.1 K/cumm [facility] Lymphocyte abs 0.8 0.8 - 3.3 K/cumm [facility] Monocyte abs 0.2 0.2 - 0.8 K/cumm [facility] Eosinophil abs 0.0 0.0 - 0.5 K/cumm [facility] Basophil abs 0.0 0.0 - 0.1 K/cumm [facility] Neutrophil pct 68.1 % [facility] Comment: Interpretive Data Percent cell count reference ranges are not reported, since discordance with absolute values may lead to misinterpretation of CBC data. Current Interpretive Data was last revised on 2017. Imm gran pct 0.3 % [facility] Comment: Interpretive Data Percent cell count reference ranges are not reported, since discordance with absolute values may lead to misinterpretation of CBC data. Current Interpretive Data was last revised on 2017. Lymphocyte pct 23.2 % [facility] Comment: Interpretive Data Percent cell count reference ranges are not reported, since discordance with absolute values may lead to misinterpretation of CBC data. Current Interpretive Data was last revised on 2017. Monocyte pct 6.9 % [facility] Comment: Interpretive Data Percent cell count reference ranges are not reported, since discordance with absolute values may lead to misinterpretation of CBC data. Current Interpretive Data was last revised on 2017. Eosinophil pct 1.2 % [facility] Comment: Interpretive Data Percent cell count reference ranges are not reported, since discordance with absolute values may lead to misinterpretation of CBC data. Current Interpretive Data was last revised on 2017. Basophil pct 0.3 % [facility] Comment: Interpretive Data Percent cell count reference ranges are not reported, since discordance with absolute values may lead to misinterpretation of CBC data. Current Interpretive Data was last revised on 2017. Blood 03/12/2024 10:5 6 PM AOC OPERATIONS INTELLIGENCE CHIEF 03/12/2024 10:56 PM AOC OPERATIONS INTELLIGENCE CHIEF us Marshall Naranjo MD LAB BLOOD ORDERABLES nal Result [facility] [address] [facility] [facility] Department of Laboratories [place], [place] [id number] * (ABNORMAL) CBC with auto differential (03/12/2024 10:56 PM AOC OPERATIONS INTELLIGENCE CHIEF) WBC 3.3(L) 3.8 - 9.9 K/cumm Hgb 9.9(L) 13.0 - 17.5 g/dL [facility] Hct 30.4(L) 38.9 - 50.3 % [facility] Plt 159 150 - 400 K/cumm [facility] MPV 9.3 9.1 - 12.3 fL [facility] RBC 3.71(L) 4.30 - 5.80 M/cumm [facility] MCV 81.9 81.3 - 96.4 fL [facility] MCH 26.7(L) 27.1 - 33.3 pg [facility] MCHC 32.6 32.3 - 35.7 g/dL [facility] RDW CV 15.9(H) 11.1 - 14.9 % [facility] RDW SD 48.0 35.7 - 48.1 fL [facility] NRBC abs 0.00 0.00 - 0.01 K/cumm [facility] Blood 03/12/2024 10:5 6 PM AOC OPERATIONS INTELLIGENCE CHIEF 03/12/2024 10:56 PM AOC OPERATIONS INTELLIGENCE CHIEF Reagan Hernandez MD LAB BLOOD ORDERABLES Final Result Performing Organization Address [facility]/ZIP Co de Phone Number [address] [place] [address] * Potassium (03/12/2024 7:15 PM AOC OPERATIONS INTELLIGENCE CHIEF) Potassium, pl 4.8 3.3 - 4.9 mmol/L Comment:Delta - Results Revi ewed Blood 03/12/2024 7:15 PM AOC OPERATIONS INTELLIGENCE CHIEF 03/12/2024 7:17 PM AOC OPERATIONS INTELLIGENCE CHIEF Louis Carmen MD LAB BLOOD ORDERABLES Final Resu lt Performing Organization Address [facility] de Phone Number [address] [address] * (ABNORMAL) Troponin T high-sensitivity 2-hour (03/12/2024 6:58 PM AOC OPERATIONS INTELLIGENCE CHIEF) Pathologist [facility] Trop T hs 134(H) <=22 ng/L Comment: Interpretive Data For further hscTnT resources including the diagnostic algorithm and an aid in interpretation, copy and paste this link: https://nrl.testcatalog.org/show/hsTrop Current Interpretive Data last revised 2020. Trop T hs pct delta 1 % [facility] Trop T hs interp Insignificant [facility] Blood 03/12/2024 6:58 PM AOC OPERATIONS INTELLIGENCE CHIEF 03/12/2024 7:02 PM AOC OPERATIONS INTELLIGENCE CHIEF Marshall Naranjo MD LAB BLOOD ORDERABLES Fi nal Result Performing Organization Address [facility]/ZIP Co de Phone Number [address] [place] [address] * (ABNORMAL) Troponin T high-sensitivity series (baseline, 2hr, 4hr, 6hr) (03/12/2024 4:56 PM AOC OPERATIONS INTELLIGENCE CHIEF) Trop T hs 133(H) <=22 ng/L Comment: Interpretive Data For further hscTnT resources including the diagnostic algorithm and an aid in interpretation, copy and paste this link: https://nrl.testcatalog.org/show/hsTrop Current Interpretive Data last revised 2020. Blood 03/12/2024 4:56 PM AOC OPERATIONS INTELLIGENCE CHIEF 03/12/2024 5:00 PM AOC OPERATIONS INTELLIGENCE CHIEF us Marshall Naranjo MD LAB BLOOD ORDERABLES Fi nal Result [facility] [address] [facility] Department [place] [address] * (ABNORMAL) eGFR (03/12/2024 4:56 PM AOC OPERATIONS INTELLIGENCE CHIEF) eGFR 6(L) >=60 mL/min/1. 73 m2 Comment: [...] last reviewed 2021. Blood 03/12/2024 4:56 PM AOC OPERATIONS INTELLIGENCE CHIEF 03/12/2024 5:00 PM AOC OPERATIONS INTELLIGENCE CHIEF us Marshall Naranjo MD LAB BLOOD ORDERABLES Fi nal Result Performing Organization Address City/[facility] Co de Phone Number EJSSIE [address] [address] * (ABNORMAL) Phosphorus (03/12/2024 4:56 PM AOC OPERATIONS INTELLIGENCE CHIEF) [facility] Phosphorus, pl 5.5(H) 2.3 - 4.5 mg/dL Blood 03/12/2024 4:56 PM AOC OPERATIONS INTELLIGENCE CHIEF 03/12/2024 5:00 PM AOC OPERATIONS INTELLIGENCE CHIEF Marshall Naranjo MD LAB BLOOD ORDERABLES Fi nal Result Performing Organization Address [facility] Co de Phone Number [address] [address] * Magnesium (03/12/2024 4:56 PM AOC OPERATIONS INTELLIGENCE CHIEF) [facility] Magnesium 2.2 1.4 - 2.5 mg/dL Blood 03/12/2024 4:56 PM AOC OPERATIONS INTELLIGENCE CHIEF 03/12/2024 5:00 PM AOC OPERATIONS INTELLIGENCE CHIEF Marshall Naranjo MD LAB BLOOD ORDERABLES formerly [facility] Result Performing Organization Address [facility] Co de Phone Number [address] [address] * (ABNORMAL) Basic metabolic panel (03/12/2024 4:56 PM AOC OPERATIONS INTELLIGENCE CHIEF) [facility] Sodium 130(L) 135 - 145 mmol/L Potassium, pl 7.4(C) 3.3 - 4.9 mmol/L [facility] Comment:Critical Result call ed to and read back by [email or web address], DATE: 2024-03-12 17:38:41 BY: [email or web address] Chloride 89(L) 97 - 110 mmol/L [facility] CO2 26 22 - 32 mmol/L [facility] Anion gap 15 2 - 15 mmol/L [facility] BUN 67(H) 6 - 25 mg/dL [facility] Creatinine 9.36(H) 0.80 - 1.30 mg/dL [facility] Glucose 337(H) 70 - 199 mg/dL [facility] Comment: Interpretive Data Fasting glucose >/= 126 [...] 2022. Calcium 7.5(L) 8.5 - 10.3 mg/dL [facility] Blood 03/12/2024 4:56 PM AOC OPERATIONS INTELLIGENCE CHIEF 03/12/2024 5:00 PM AOC OPERATIONS INTELLIGENCE CHIEF Marshall Naranjo MD LAB BLOOD ORDERABLES Fi nal Result Performing Organization Address City/[facility] Co de Phone Number [facility] [address] [facility] Department [place] [address] * ECG 12 lead (03/12/2024 4:53 PM AOC OPERATIONS INTELLIGENCE CHIEF) Pathologist [facility] Ventricular Rate EKG/Min 71 BPM [facility] Atrial Rate 71 BPM [facility] NC-Interval (MSEC) 208 ms [facility] QRS-Interval (MSEC) 126 ms [facility] QT-Interval (MSEC) 456 ms [facility] QTc 495 ms [facility] P Swiss 43 degrees [facility] R Swiss 29 degrees [facility] T Swiss 50 degrees [facility] Diagnosis Normal sinus rhythm Non-specific intra-ventric ular conduction block Abnormal ECG Confirmed by RUCHI ZAFAR M.D. ([id number]) on 03/12/2024 5:47:06 PM [facility] 03/12/2024 4:53 PM AOC OPERATIONS INTELLIGENCE CHIEF 03/12/2024 5:47 PM AOC OPERATIONS INTELLIGENCE CHIEF Marshall Naranjo MD ECG ORDERABLES Final R esult [facility] * [place] CRITICAL CARE ILL/INJURED PATIENT INIT 30-74 MIN (03/12/2024 4:30 PM AOC OPERATIONS INTELLIGENCE CHIEF) Narrative Marshall Naranjo MD - 03/12/2024 4:30 PM AOC OPERATIONS INTELLIGENCE CHIEF Marshall Naranjo MD 03/12/2024 8:00 PM Critical Care Performed by: Marsahll Naranjo MD Authorized by: Marshall Naranjo MD [...] Result * (ABNORMAL) eGFR (02/28/2024 3:58 AM AOC OPERATIONS INTELLIGENCE CHIEF) eGFR 9(L) >=60 mL/min/1. 73 m2 Comment: [...] last reviewed 2021. Blood 02/28/2024 3:58 AM AOC OPERATIONS INTELLIGENCE CHIEF 02/28/2024 4:06 AM AOC OPERATIONS INTELLIGENCE CHIEF Jerri Ferrer MD LAB BLOOD ORDERABLES Final Result [facility] [address] Department [place] [address] * Differential, auto (02/28/2024 3:58 AM AOC OPERATIONS INTELLIGENCE CHIEF) Pathologist [facility] Neutrophil abs 2.0 1.5 - 6.5 K/cumm Imm gran abs 0.0 0.0 - 0.1 K/cumm [facility] Lymphocyte abs 0.8 0.8 - 3.3 K/cumm [facility] Monocyte abs 0.4 0.2 - 0.8 K/cumm [facility] Eosinophil abs 0.0 0.0 - 0.5 K/cumm [facility] Basophil abs 0.0 0.0 - 0.1 K/cumm [facility] Neutrophil pct 61.8 % [facility] Comment: Interpretive Data Percent cell count reference ranges are not reported, since discordance with absolute values may lead to misinterpretation of CBC data. Current Interpretive Data was last revised on 2017. Imm gran pct 0.3 % [facility] Comment: Interpretive Data Percent cell count reference ranges are not reported, since discordance with absolute values may lead to misinterpretation of CBC data. Current Interpretive Data was last revised on 2017. Lymphocyte pct 25.5 % [facility] Comment: Interpretive Data Percent cell count reference ranges are not reported, since discordance with absolute values may lead to misinterpretation of CBC data. Current Interpretive Data was last revised on 2017. Monocyte pct 11.2 % [facility] Comment: Interpretive Data Percent cell count reference ranges are not reported, since discordance with absolute values may lead to misinterpretation of CBC data. Current Interpretive Data was last revised on 2017. Eosinophil pct 0.9 % [facility] Comment: Interpretive Data Percent cell count reference ranges are not reported, since discordance with absolute values may lead to misinterpretation of CBC data. Current Interpretive Data was last revised on 2017. Basophil pct 0.3 % [facility] Comment: Interpretive Data Percent cell count reference ranges are not reported, since discordance with absolute values may lead to misinterpretation of CBC data. Current Interpretive Data was last revised on 2017. Blood 02/28/2024 3:58 AM AOC OPERATIONS INTELLIGENCE CHIEF 02/28/2024 4:06 AM AOC OPERATIONS INTELLIGENCE CHIEF Jerri Ferrer MD LAB BLOOD ORDERABLES Final Result Performing Organization Address City/[facility]/ZIP Co de Phone Number [address] [place] [address] * (ABNORMAL) Thyroid Function Rabun (02/28/2024 3:58 AM AOC OPERATIONS INTELLIGENCE CHIEF) Pathologist [facility] TSH 19.50(H) 0.30 - 4.20 mcIUnit/mL Blood 02/28/2024 3:58 AM AOC OPERATIONS INTELLIGENCE CHIEF 02/28/2024 4:06 AM AOC OPERATIONS INTELLIGENCE CHIEF Jerri Ferrer MD LAB BLOOD ORDERABLES Final Result Performing Organization Address City/[facility] Co de Phone Number [address] [address] * (ABNORMAL) CBC with auto differential (02/28/2024 3:58 AM AOC OPERATIONS INTELLIGENCE CHIEF) Pathologist [facility] WBC 3.2(L) 3.8 - 9.9 K/cumm Hgb 8.4(L) 13.0 - 17.5 g/dL [facility] Hct 26.9(L) 38.9 - 50.3 % [facility] Plt 140(L) 150 - 400 K/cumm [facility] MPV 10.2 9.1 - 12.3 fL [facility] RBC 3.11(L) 4.30 - 5.80 M/cumm [facility] MCV 86.5 81.3 - 96.4 fL [facility] MCH 27.0(L) 27.1 - 33.3 pg [facility] MCHC 31.2(L) 32.3 - 35.7 g/dL [facility] RDW CV 17.0(H) 11.1 - 14.9 % [facility] RDW SD 52.8(H) 35.7 - 48.1 fL [facility] NRBC abs 0.00 0.00 - 0.01 K/cumm [facility] Blood 02/28/2024 3:58 AM AOC OPERATIONS INTELLIGENCE CHIEF 02/28/2024 4:06 AM AOC OPERATIONS INTELLIGENCE CHIEF Jerri Ferrer MD LAB BLOOD ORDERABLES Final Result Performing Organization Address [facility] de Phone Number [address] [place] [address] * (ABNORMAL) T4, free (02/28/2024 3:58 AM AOC OPERATIONS INTELLIGENCE CHIEF) Free T4 0.60(L) 0.90 - 1.70 ng/dL Blood 02/28/2024 3:58 AM AOC OPERATIONS INTELLIGENCE CHIEF 02/28/2024 4:06 AM AOC OPERATIONS INTELLIGENCE CHIEF Narrative [facility] - 02/28/2024 6:07 AM AOC OPERATIONS INTELLIGENCE CHIEF This test was reflexed from a TSH result. Jerri Ferrer MD LAB BLOOD ORDERABLES Final Result Performing Organization Address [facility] Co de Phone Number [address] [place] [address] * (ABNORMAL) Phosphorus (02/28/2024 3:58 AM AOC OPERATIONS INTELLIGENCE CHIEF) Phosphorus, pl 6.4(H) 2.3 - 4.5 mg/dL Blood 02/28/2024 3:58 AM AOC OPERATIONS INTELLIGENCE CHIEF 02/28/2024 4:06 AM AOC OPERATIONS INTELLIGENCE CHIEF Jerri Ferrer MD LAB BLOOD ORDERABLES Final Result Performing Organization Address City/[facility]/ZIP Co de Phone Number [facility] [id number] [place] [address] * Magnesium (02/28/2024 3:58 AM AOC OPERATIONS INTELLIGENCE CHIEF) [facility] Magnesium 2.0 1.4 - 2.5 mg/dL Blood 02/28/2024 3:58 AM AOC OPERATIONS INTELLIGENCE CHIEF 02/28/2024 4:06 AM AOC OPERATIONS INTELLIGENCE CHIEF Juan Carlos Saunders NP LAB BLOOD ORDERABLES Fin al Result Performing Organization Address [facility] de Phone Number [address] [address] * (ABNORMAL) Hemoglobin A1c (02/28/2024 3:58 AM AOC OPERATIONS INTELLIGENCE CHIEF) [facility] Hgb A1C 6.5(H) 4.0 - 5.6 % Estimated Average Glucose 140 mg/dL [facility] Comment: The ADA recommends reporting an estimated Average Glucose (eAG) with all Hemoglobin A1c results using the equation derived from a study of 507 normal and diabetic adults. Minority populations were underrepresented and children were not included. (Diabetes Care 31:3816-9585, 2008). The eAG is not equivalent to a fasting glucose. Blood 02/28/2024 3:58 AM AOC OPERATIONS INTELLIGENCE CHIEF 02/28/2024 4:06 AM AOC OPERATIONS INTELLIGENCE CHIEF Jerri Ferrer MD LAB BLOOD ORDERABLES Final Result Performing Organization Address [facility] Co de Phone Number [address] [address] * (ABNORMAL) Basic metabolic panel (02/28/2024 3:58 AM AOC OPERATIONS INTELLIGENCE CHIEF) [facility] Sodium 135 135 - 145 mmol/L Potassium, pl 4.7 3.3 - 4.9 mmol/L [facility] Chloride 92(L) 97 - 110 mmol/L [facility] CO2 29 22 - 32 mmol/L [facility] Anion gap 14 2 - 15 mmol/L [facility] BUN 61(H) 6 - 25 mg/dL [facility] Creatinine 7.18(H) 0.80 - 1.30 mg/dL [facility] Glucose 97 70 - 199 mg/dL [facility] Comment: Interpretive Data Fasting glucose >/= 126 [...] 2022. Calcium 7.1(L) 8.5 - 10.3 mg/dL [facility] Blood 02/28/2024 3:58 AM AOC OPERATIONS INTELLIGENCE CHIEF 02/28/2024 4:06 AM AOC OPERATIONS INTELLIGENCE CHIEF Jerri Ferrer MD LAB BLOOD ORDERABLES Final Result [facility] [address] Department of Laboratories [place], [place] [id number] * Hepatitis B surface antibody (immune status) Blood (02/27/2024 4:30 PM AOC OPERATIONS INTELLIGENCE CHIEF) Pathologist [facility] HBsAb (immune status) Reactive Comment: Interpretive Data [...] HBsAb (immune status) index 209.0 mIUnits/m L [facility] Blood 02/27/2024 4:30 PM AOC OPERATIONS INTELLIGENCE CHIEF 02/27/2024 4:50 PM AOC OPERATIONS INTELLIGENCE CHIEF us Alexey Blood MD LAB MICROBIOLOGY - GENERAL ORDERABLES Final Result Performing Organization Address City/[facility] Co de Phone Number [address] [place] [address] * Hepatitis B Surface Antigen Blood (02/27/2024 4:30 PM AOC OPERATIONS INTELLIGENCE CHIEF) [facility] HepBsAg Nonreactive Nonreactive Blood 02/27/2024 4:30 PM AOC OPERATIONS INTELLIGENCE CHIEF 02/27/2024 4:50 PM AOC OPERATIONS INTELLIGENCE CHIEF Alexey Blood MD LAB MICROBIOLOGY - GENERAL ORDERABLES Final Result Performing Organization Address [facility] Co de Phone Number [address] [address] * Potassium (02/27/2024 4:30 PM AOC OPERATIONS INTELLIGENCE CHIEF) [facility] Potassium, pl 3.9 3.3 - 4.9 mmol/L Blood 02/27/2024 4:30 PM AOC OPERATIONS INTELLIGENCE CHIEF 02/27/2024 4:50 PM AOC OPERATIONS INTELLIGENCE CHIEF us Alexey Blood MD LAB BLOOD ORDERABLES Final Result Performing Organization Address [facility] Co de Phone Number [address] [address] * POCT glucose (02/27/2024 3:37 PM AOC OPERATIONS INTELLIGENCE CHIEF) [facility] Glucose, POC 150 70 - 199 mg/dL Blood 02/27/2024 3:37 PM AOC OPERATIONS INTELLIGENCE CHIEF 02/27/2024 3:37 PM AOC OPERATIONS INTELLIGENCE CHIEF Jerri Ferrer MD LAB POCT ORDERABLES - DEVICE Final Result Performing Organization Address [facility] Co de Phone Number [address] [place] [address] * XR Outside Reference (02/27/2024 9:15 AM AOC OPERATIONS INTELLIGENCE CHIEF) Narrative [email or web address] - 03/06/2024 9:14 AM AOC OPERATIONS INTELLIGENCE CHIEF This order has been auto-finalized and does not contain a result. us Provider Transcribed Order IMG XR PROCEDURES Fin al Result Performing Organization Address [facility] Co de Phone Number [email or web address] * XR Outside Reference (02/26/2024 4:40 PM AOC OPERATIONS INTELLIGENCE CHIEF) Narrative JOSE C_MHE - 03/06/2024 9:14 AM AOC OPERATIONS INTELLIGENCE CHIEF This order has been auto-finalized and does not contain a result. us Provider Transcribed Order IMG XR PROCEDURES Fin al Result Performing Organization Address [facility] Co de Phone Number [email or web address] * (ABNORMAL) [...] on 2017. HDL 24(L) >=40 mg/dL [facility] Comment: Interpretive Data Ages [...] 2017. LDL, calculated 49 <=129 mg/dL [facility] Comment: Interpretive Data Ages [...] NCEP Expert Panel. Circulation 2004;110:227 3. Miguelito Cao et al. BRYON Cardiol. 2019July 03;5(5):540-548. doi: [email or web address] Current Interpretive Data was last revised on 2023. Non-HDL Cholesterol 79 mg/dL [facility] Comment: Interpretive Data Ages [...] LAB BLOOD ORDERABLES Final R esult [facility] [address] [place] [address] from Last 3 Months or Most Recently Relevant to Health Maintenance Insurance IDPA [facility] MEDICARE ADVANTAGE [facility] Address: [address] [address] [place] [address] [facility] MEDICARE AD[facility]AGE [facility] Address: [address] [address] [place] [address] [employer]PA Advance Directives For more information, please contact: [phone] * Full Code (Latest Code Status on File) Date Activated Date Inactivated Comments 03/31/2024 3:19 PM 04/04/2024 7:54 PM * Full Code Date Activated Date Inactivated Comments 03/20/2024 9:38 PM 03/31/2024 3:19 PM * Full Code Date Activated Date Inactivated Comments 03/12/2024 10:16 PM 03/13/2024 6:25 PM * Full Code Date Activated Date Inactivated Comments 02/27/2024 3:20 PM 02/28/2024 10:25 PM * Full Code Date Activated Date Inactivated Comments 12/07/2023 9:26 AM 12/08/2023 6:42 PM Care Teams [employer] Relationship Specialty Start Date End Date Sundar Chisholm DO [address] [place] [address] PCP - General Family Medicine 11/14/23 Marcus Florence MD [address] [place] [address] Consulting Physician Cardiology 11/15/23 Ricki Mills MD [address] [facility] [address] [address] Surgeon Vascular Surgery 04/04/24
--- OUTSIDE RECORDS SUMMARY | 2024-05-23 12:56 | XMS_ITS | Referral Summary ---
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) (Primary Dx) 05/07/2024 11:15 AM RACE BOARD ATTENDANT Office Visit [facility] Vascular and Vein Surgery [address] [place] [phone] Tiki Birch NP 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) (Primary Dx) 04/30/2024 11:15 AM RACE BOARD ATTENDANT Office Visit [facility] Vascular and Vein Surgery [address] [place] [phone] Anjali Klnie NP Dry gangrene (HCC) (Primary Dx) 04/17/2024 10:30 AM RACE BOARD ATTENDANT Office Visit [facility] Vascular and Vein Surgery [address] [place] [phone] Tabatha Pearl PA 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) (Primary Dx); Paroxysmal atrial fibrillation (HCC); Mixed hyperlipidemia; Essential (primary) hypertension; Type 2 diabetes mellitus with chronic kidney disease on chronic dialysis, with long-term current use of insulin (HCC); ESRD (end stage renal disease) on dialysis ([facility]) 04/08/2024 Telephone [facility] Vascular and Vein Surgery [address] [place] [phone] Maria Guadalupe Casey 04/07/2024 Documentation [facility] Vascular and Vein Surgery [address] [place] [phone] Dominga Christian MA 03/20/2024 2:02 PM RACE BOARD ATTENDANT - 04/04/2024 2:29 PM RACE BOARD ATTENDANT Hospital Encounter [facility] [address] [address] Lucienais, MD Gladys Pino, MD Julee Ashley, MD Marv Bedolla, MD Trupti Kruger, Kang Manrique MD Osteomyelitis of fourth toe of right foot (HCC) (Primary Dx); Dry gangrene (HCC); Hyperkalemia; End stage renal disease (HCC); ESRD on hemodialysis (CMS/HCC) (HCC) [N18.6, Z99.2]; Type 2 diabetes mellitus with chronic kidney disease on chronic dialysis, with long-term current use of insulin ([facility]) [E11.22, N18.6, Z99.2, Z79.4]; Gangrene ([facility]); Generalized weakness; S/P transmetatarsal amputation of foot, right ([facility]); Anemia, unspecified type Discharge Disposition: Discharge to home or self care 03/31/2024 11:29 AM RACE BOARD ATTENDANT Anesthesia Event [facility] OR [address] [place] [phone] Luis Alberto Lowe MD Jones, Alexis, CRNA 03/31/2024 11:30 AM RACE BOARD ATTENDANT - 03/31/2024 1:05 PM RACE BOARD ATTENDANT Surgery [facility] OR [address] [place] [phone] Ricki Mills MD RIGHT TRANSMETATARSAL AMPUTATION 03/25/2024 8:00 AM RACE BOARD ATTENDANT - 03/25/2024 9:00 AM RACE BOARD ATTENDANT Surgery [facility] Cardiac Joint Finisher [address] [place] [phone] Ricki Mills MD ANGIOGRAPHY - UNILATERAL EXTREMITY S&I [id number] 03/12/2024 4:28 PM RACE BOARD ATTENDANT - 03/13/2024 2:05 PM RACE BOARD ATTENDANT Hospital Encounter [address] [address] Marshall Naranjo MD Ogbuagu, MD Giuseppe Cruz Mahmud Mustafa, MD Hyperkalemia (Primary Dx); ESRD (end stage renal disease) (HCC); Nausea; Weakness; Hyperphosphatemia; ESRD on hemodialysis (HCC); Generalized weakness Discharge Disposition: Discharge to home or self care 02/27/2024 2:30 PM RACE BOARD ATTENDANT - 02/28/2024 5:30 PM RACE BOARD ATTENDANT Hospital Encounter [address] [address] Inocencia Fair MD Yaganti, Srinivasarao C., MD Saravanan, Pathanjali, MD ESRD on hemodialysis ([facility]) (Primary Dx); Hyperkalemia; Hyponatremia; Essential (primary) hypertension; Type 1 diabetes mellitus with hyperglycemia (HCC); Chronic diastolic congestive heart failure (HCC); Chronic stable angina; Mixed hyperlipidemia; Acquired hypothyroidism; Paroxysmal atrial fibrillation ([facility]) Discharge Disposition: Discharge to home or self care 02/27/2024 9:15 AM RACE BOARD ATTENDANT - 02/27/2024 11:59 PM RACE BOARD ATTENDANT Hospital Encounter [facility] [employer] [address] [place] [address] [place] [address] Discharge Disposition: Discharge to home or self care 02/26/2024 4:40 PM RACE BOARD ATTENDANT - 02/26/2024 11:59 PM RACE BOARD ATTENDANT Hospital Encounter [facility] [employer] [address] [place] [address] [place] [address] Discharge Disposition: Discharge to home or self care from Last 3 Months Allergies Active Allergy Reactions Criticality Noted Date Comments Amlodipine Shortness of breath High 10/31/2017 LE swelling Carvedilol Other (See comments) Medium 06/27/2023 Chest pain Doxycycline Rash Medium 06/27/2023 Levofloxacin Shortness of breath High 04/17/2015 Breathing Difficulty, severe rash Morphine Rash Medium 06/27/2023 Medications amiodarone (PACERONE) 200 mg tablet Take 1 tablet (200 mg total) by mouth daily 10/10/19 Active atorvastatin (LIPITOR) 80 mg tablet Take 1 tablet (80 mg total) by mouth daily 90 tablet 3 10/23/19 Active Eliquis 5 mg tablet Take 1 tablet (5 mg total) by mouth 2 (two) times a day 90 tablet 3 10/23/19 Active isosorbide mononitrate ER (IMDUR) 30 mg 24 hr tablet Take 1 tablet (30 mg total) by mouth daily 90 tablet 3 10/23/19 Active nitroglycerin (NITROSTAT) 0.[address] 1 tablet (0.3 mg total) under the tongue every 5 (five) minutes as needed for chest pain May repeat dose q 5 min, up to 3 doses total 90 tablet 10/23/19 24 2024 Active ticagrelor (BRILINTA) 90 mg tablet Take 1 tablet (90 mg total) by mouth 2 (two) times a day 90 tablet 3 10/23/19 Active cholecalciferol (VITAMIN D-3) 5,000 unit tablet [...] ODT (ZOFRAN-ODT) 4 mg disintegrating tablet 11/22/19 Active hydrALAZINE (APRESOLINE) 100 mg tablet Take 1 tablet (100 mg total) by mouth 2 (two) times a day 01/16/20 Active HYDROcodone-acetamin ophen (NORCO) 7.5-325 mg per tablet Take 1 tablet by mouth every 8 (eight) hours as needed for pain Active calcitRIOL (ROCALTROL) 0.5 mcg capsule Take 2 capsules (1 mcg total) by mouth daily Active cyanocobalamin (Vitamin B-12) 1,000 mcg tabletIndications:Pr evention of Vitamin B12 Deficiency Take 1 tablet (1,000 mcg total) by mouth daily 90 tablet 3 04/04/192025 Active epoetin jossie-epbx (RETACRIT) (20,000 unit/mL) injectionIndications :ESRD on Dialysis Infuse 0.6 mL (12,000 Units total) into a venous catheter 3 (three) times a week With hemodialysis sessions 04/04/19 Active levothyroxine (SYNTHROID) 50 mcg tablet Take 1 tablet (50 mcg total) by mouth early childhood worker before breakfast 90 tablet 3 04/04/19 25 2025 Active metoprolol tartrate (LOPRESSOR) 25 mg immediate release tablet Take 0.5 tablets (12.5 mg total) by mouth 2 (two) times a day 90 tablet 04/04/19 25 2025 Active sevelamer (RENVELA) 800 mg tabletIndications:Re nal Osteodystrophy with Hyperphosphatemia Take 2 tablets (1,600 mg total) by mouth 3 (three) times a day with meals 180 tablet 04/04/19 25 2025 Active Additional Information [...] pain in right foot) 84 tablet 04/04/19 25 Active Additional Information Patient not taking.Reported on [...] TMA. Assessment & Plan (05/09/2024 9:11 AM RACE BOARD ATTENDANT): Impression: Patient is status post right TMA [...] 03/20/2024 Assessment & Plan (04/30/2024 3:53 PM RACE BOARD ATTENDANT): Status post right TMA on 03/31/2024 for [...] Resolved Date Blurring of visual image 04/20/201512/2023 Social History Tobacco Use Types Packs/Day Years Used Date Smoking Tobacco: Never Smokeless Tobacco: Never Tobacco Cessation:Counseling Given: Not Answered [facility] Utilities Answer Date Recorded In the past [...] often do you attend chur ch or zoroastrian services? Never 03/21/2024 Do you belong to [...] any time in the past 12 m [facility], were you homeless or living in a long term (including now)? No 03/21/2024 Personal Safety Answer Date Recorded Have you ever been in or are you currently in a harmful physical or emotional relationship or is someone making you feel afraid or unsafe? Denies 03/25/2024 Sex and Gender Information Value Date Recorded Sex Assigned at Not on file Legal Sex Male 10:28 AM RACE BOARD ATTENDANT Gender Identity Not on file Sexual Orientation Not on file Last Filed Vital Signs Vital Sign Reading Time Taken Comments Blood Pressure 170/92 05/21/2024 10:57 AM CDT Pulse 83 05/21/2024 10:57 AM CDT Temperature 37 C (98.6 F) 04/04/2024 1:34 PM RACE BOARD ATTENDANT Respiratory Rate 16 04/04/2024 11:48 AM RACE BOARD ATTENDANT Oxygen Saturation 97% 04/04/2024 11:48 AM RACE BOARD ATTENDANT Inhaled Oxygen Concentration - - Weight 99.8 kg (220 lb) 05/21/2024 10:57 AM CDT Height 182.9 cm (6') 05/21/2024 10:57 AM CDT Body Mass Index 29.84 05/21/2024 10:57 AM CDT Plan of Treatment Not on file Medical Devices Implanted Type Area Operator Weapon Locating Radar Device Identifier Shelf Expiration Date Model / Serial / Lot [employer] Zilver Ptx 6mm 80mm 125cm Drug Elute Otw Delivery System [id number] - [id number] Implanted:Qty: 1 on 03/25/2024 by Ricki Mills MD at [facility] Right: Groin [employer] [id number] 09/11/2025 [id number] / / [id number] [employer] V[employer] System Closure Repair Femoral Artery Suture Mediated Perclose Prostyle 68683-68 - [id number] Implanted:Qty: 1 on 03/25/2024 by Ricki Mills MD at [facility] Right: Groin [employer] 12/02/2025 08261-05 / / [id number] Procedures Procedure Name Priority Date/Time Associated Diagnosis Comments TRANSFUSE RED BLOOD CELLS Timed 04/04/2024 11:28 AM RACE BOARD ATTENDANT PREPARE RBC Timed 04/04/2024 10:08 AM RACE BOARD ATTENDANT EGFR Routine 04/04/2024 7:35 AM RACE BOARD ATTENDANT DIFFERENTIAL AUTO Routine 04/04/2024 7:3 5 AM RACE BOARD ATTENDANT CRP (ACUTE PHASE) Routine 04/04/2024 7:3 5 AM RACE BOARD ATTENDANT BASIC METABOLIC PANEL Routine 04/04/2024 7:35 AM RACE BOARD ATTENDANT CBC WITH AUTO DIFFERENTIAL Routine 04/04/2024 7:35 AM RACE BOARD ATTENDANT CROSSMATCH Timed 04/03/2024 3:37 PM RACE BOARD ATTENDANT DIFFERENTIAL AUTO Timed 04/03/2024 3:3 7 PM RACE BOARD ATTENDANT ANTIBODY SCREEN Timed 04/03/2024 3:37 PM RACE BOARD ATTENDANT ABO/RH Timed 04/03/2024 3:37 PM RACE BOARD ATTENDANT TYPE AND SCREEN Timed 04/03/2024 3:37 PM RACE BOARD ATTENDANT CBC WITH AUTO DIFFERENTIAL Timed 04/03/2024 3:37 PM RACE BOARD ATTENDANT HEMODIALYSIS Routine 04/03/2024 9:15 AM RACE BOARD ATTENDANT CRP (ACUTE PHASE) Routine 04/03/2024 8:0 0 AM RACE BOARD ATTENDANT HAPTOGLOBIN Routine 04/03/2024 8:00 AM RACE BOARD ATTENDANT EGFR Routine 04/03/2024 8:00 AM RACE BOARD ATTENDANT DIFFERENTIAL AUTO Routine 04/03/2024 8:0 0 AM RACE BOARD ATTENDANT BASIC METABOLIC PANEL Routine 04/03/2024 8:00 AM RACE BOARD ATTENDANT CBC WITH AUTO DIFFERENTIAL Routine 04/03/2024 8:00 AM RACE BOARD ATTENDANT EGFR Routine 04/02/2024 2:15 PM RACE BOARD ATTENDANT DIFFERENTIAL AUTO Routine 04/02/2024 2:1 5 PM RACE BOARD ATTENDANT VITAMIN D 25 HYDROXY Timed 04/02/2024 2:15 PM RACE BOARD ATTENDANT VITAMIN B12 Timed 04/02/2024 2:15 PM RACE BOARD ATTENDANT FOLATE Timed 04/02/2024 2:15 PM RACE BOARD ATTENDANT BASIC METABOLIC PANEL Routine 04/02/2024 2:15 PM RACE BOARD ATTENDANT CBC WITH AUTO DIFFERENTIAL Routine 04/02/2024 2:15 PM RACE BOARD ATTENDANT US VEIN DUPLEX LOWER EXTREMITY RIGHT LIMITED IP Routine 04/01/2024 3:45 PM RACE BOARD ATTENDANT BUN STAT 04/01/2024 12:41 PM RACE BOARD ATTENDANT PTH Routine 04/01/2024 10:05 AM RACE BOARD ATTENDANT EGFR Routine 04/01/2024 9:32 AM RACE BOARD ATTENDANT DIFFERENTIAL AUTO Routine 04/01/2024 9:3 2 AM RACE BOARD ATTENDANT COMPREHENSIVE METABOLIC PANEL Routine 04/01/2024 9:32 AM RACE BOARD ATTENDANT FERRITIN Routine 04/01/2024 9:32 AM RACE BOARD ATTENDANT IRON PROFILE W/ IBC Routine 04/01/2024 9 :32 AM RACE BOARD ATTENDANT PHOSPHORUS Routine 04/01/2024 9:32 AM RACE BOARD ATTENDANT CBC WITH AUTO DIFFERENTIAL Routine 04/01/2024 9:32 AM RACE BOARD ATTENDANT HEMODIALYSIS Routine 03/31/2024 1:24 PM RACE BOARD ATTENDANT POCT GLUCOSE DEVICE Routine 03/31/2024 1 2:51 PM RACE BOARD ATTENDANT SURGICAL PATHOLOGY Routine 03/31/2024 12 :03 PM RACE BOARD ATTENDANT Gangrene (HCC) FL AN PROCEDURE PLACEHOLDER Routine 03/31/2024 11:44 AM RACE BOARD ATTENDANT FL AN ELECTIVE SUPRAGLOTTIC AIRWAY Routine 03/31/2024 11:44 AM RACE BOARD ATTENDANT AMPUTATION TRANSMETATARSAL 03/31/2024 11:28 AM RACE BOARD ATTENDANT EGFR Routine 03/31/2024 7:41 AM RACE BOARD ATTENDANT DIFFERENTIAL AUTO Routine 03/31/2024 7:4 1 AM RACE BOARD ATTENDANT VANCOMYCIN LEVEL RANDOM Routine 03/31/19 7:41 AM RACE BOARD ATTENDANT CBC WITH AUTO DIFFERENTIAL Routine 03/31/2024 7:41 AM RACE BOARD ATTENDANT BASIC METABOLIC PANEL Routine 03/31/2024 7:41 AM RACE BOARD ATTENDANT APTT Routine 03/31/2024 7:41 AM RACE BOARD ATTENDANT PROTIME-INR Routine 03/31/2024 7:41 AM RACE BOARD ATTENDANT CBC WITHOUT DIFFERENTIAL Routine 03/31/2024 7:41 AM RACE BOARD ATTENDANT ALBUMIN Routine 03/30/2024 7:07 AM RACE BOARD ATTENDANT PREALBUMIN Routine 03/30/2024 7:07 AM RACE BOARD ATTENDANT EGFR Routine 03/30/2024 7:07 AM RACE BOARD ATTENDANT DIFFERENTIAL AUTO Routine 03/30/2024 7:0 7 AM RACE BOARD ATTENDANT CBC WITH AUTO DIFFERENTIAL Routine 03/30/2024 7:07 AM RACE BOARD ATTENDANT BASIC METABOLIC PANEL Routine 03/30/2024 7:07 AM RACE BOARD ATTENDANT HEMODIALYSIS Routine 03/30/2024 12:31 AM RACE BOARD ATTENDANT TRANSFUSE RED BLOOD CELLS Timed 03/29/2024 4:50 PM RACE BOARD ATTENDANT PREPARE RBC Timed 03/29/2024 4:28 PM RACE BOARD ATTENDANT CROSSMATCH Timed 03/29/2024 3:47 PM RACE BOARD ATTENDANT ANTIBODY SCREEN Timed 03/29/2024 3:47 PM RACE BOARD ATTENDANT ABO/RH Timed 03/29/2024 3:47 PM RACE BOARD ATTENDANT TYPE AND SCREEN Timed 03/29/2024 3:47 PM RACE BOARD ATTENDANT HEMODIALYSIS Routine 03/29/2024 8:31 AM RACE BOARD ATTENDANT EGFR Routine 03/29/2024 7:40 AM RACE BOARD ATTENDANT DIFFERENTIAL AUTO Routine 03/29/2024 7:4 0 AM RACE BOARD ATTENDANT VANCOMYCIN LEVEL RANDOM Timed 03/29/19 7:40 AM RACE BOARD ATTENDANT CBC WITH AUTO DIFFERENTIAL Routine 03/29/2024 7:40 AM RACE BOARD ATTENDANT BASIC METABOLIC PANEL Routine 03/29/2024 7:40 AM RACE BOARD ATTENDANT EGFR Routine 03/28/2024 7:00 AM RACE BOARD ATTENDANT DIFFERENTIAL AUTO Routine 03/28/2024 7:0 0 AM RACE BOARD ATTENDANT VANCOMYCIN LEVEL RANDOM Timed 03/28/19 7:00 AM RACE BOARD ATTENDANT CBC WITH AUTO DIFFERENTIAL Routine 03/28/2024 7:00 AM RACE BOARD ATTENDANT BASIC METABOLIC PANEL Routine 03/28/2024 7:00 AM RACE BOARD ATTENDANT TRANSFUSE RED BLOOD CELLS Timed 03/27/2024 2:33 PM RACE BOARD ATTENDANT PREPARE RBC Timed 03/27/2024 1:26 PM RACE BOARD ATTENDANT EGFR Routine 03/27/2024 12:18 PM RACE BOARD ATTENDANT DIFFERENTIAL AUTO Routine 03/27/2024 12: 18 PM RACE BOARD ATTENDANT CBC WITH AUTO DIFFERENTIAL Routine 03/27/2024 12:18 PM RACE BOARD ATTENDANT BASIC METABOLIC PANEL Routine 03/27/2024 12:18 PM RACE BOARD ATTENDANT BLOOD CULTURE STAT 03/27/2024 12:18 PM RACE BOARD ATTENDANT HEMODIALYSIS Routine 03/27/2024 9:43 AM RACE BOARD ATTENDANT BLOOD CULTURE STAT 03/26/2024 11:23 AM RACE BOARD ATTENDANT CROSSMATCH Timed 03/26/2024 5:05 AM RACE BOARD ATTENDANT VANCOMYCIN LEVEL RANDOM Routine 03/26/19 5:05 AM RACE BOARD ATTENDANT EGFR Routine 03/26/2024 5:05 AM RACE BOARD ATTENDANT DIFFERENTIAL AUTO Routine 03/26/2024 5:0 5 AM RACE BOARD ATTENDANT ANTIBODY SCREEN Timed 03/26/2024 5:05 AM RACE BOARD ATTENDANT ABO/RH Timed 03/26/2024 5:05 AM RACE BOARD ATTENDANT CBC WITH AUTO DIFFERENTIAL Routine 03/26/2024 5:05 AM RACE BOARD ATTENDANT BASIC METABOLIC PANEL Routine 03/26/2024 5:05 AM RACE BOARD ATTENDANT TYPE AND SCREEN Timed 03/26/2024 5:05 AM RACE BOARD ATTENDANT POCT GLUCOSE DEVICE Routine 03/25/2024 5 :20 PM RACE BOARD ATTENDANT POCT GLUCOSE DEVICE Routine 03/25/2024 1 2:18 PM RACE BOARD ATTENDANT HEMODIALYSIS Routine 03/25/2024 11:05 AM RACE BOARD ATTENDANT POCT GLUCOSE DEVICE Routine 03/25/2024 1 0:34 AM RACE BOARD ATTENDANT ATHERECTOMY - PERIPHERAL Routine 03/25/2024 9:37 AM RACE BOARD ATTENDANT Osteomyelitis of fourth toe of right foot (HCC) Dry gangrene (HCC) ANGIOGRAPHY UNILATERAL EXTREMITY S&I [id number] Routine 03/25/2024 9:37 AM RACE BOARD ATTENDANT Osteomyelitis of fourth toe of right foot (HCC) Dry gangrene (HCC) POCT GLUCOSE DEVICE Routine 03/24/2024 8 :10 PM RACE BOARD ATTENDANT POCT GLUCOSE DEVICE Routine 03/24/2024 4 :57 PM RACE BOARD ATTENDANT MRI FOOT RIGHT WO CONTRAST IP Routine 03/24/2024 3:20 PM RACE BOARD ATTENDANT POCT GLUCOSE DEVICE Routine 03/24/2024 1 2:35 PM RACE BOARD ATTENDANT HEMODIALYSIS Routine 03/24/2024 8:40 AM RACE BOARD ATTENDANT EGFR Routine 03/24/2024 5:20 AM RACE BOARD ATTENDANT DIFFERENTIAL AUTO Routine 03/24/2024 5:2 0 AM RACE BOARD ATTENDANT VANCOMYCIN LEVEL RANDOM Timed 03/24/19 25 5:20 AM RACE BOARD ATTENDANT CBC WITH AUTO DIFFERENTIAL Routine 03/24/2024 5:20 AM RACE BOARD ATTENDANT BASIC METABOLIC PANEL Routine 03/24/2024 5:20 AM RACE BOARD ATTENDANT POCT GLUCOSE DEVICE Routine 03/24/2024 4 :58 AM RACE BOARD ATTENDANT POCT GLUCOSE DEVICE Routine 03/23/2024 8 :08 PM RACE BOARD ATTENDANT POCT GLUCOSE DEVICE Routine 03/23/2024 5 :17 PM RACE BOARD ATTENDANT TRANSFUSE RED BLOOD CELLS Timed 03/23/2024 2:15 PM RACE BOARD ATTENDANT PREPARE RBC Timed 03/23/2024 1:54 PM RACE BOARD ATTENDANT B ABO / RH CONFIRMATION TESTING STAT 03/23/2024 12:40 PM RACE BOARD ATTENDANT CROSSMATCH Timed 03/23/2024 11:41 AM RACE BOARD ATTENDANT ANTIBODY SCREEN Timed 03/23/2024 11:41 AM RACE BOARD ATTENDANT ABO/RH Timed 03/23/2024 11:41 AM RACE BOARD ATTENDANT TYPE AND SCREEN Timed 03/23/2024 11:41 AM RACE BOARD ATTENDANT POCT GLUCOSE DEVICE Routine 03/23/2024 8 :15 AM RACE BOARD ATTENDANT EGFR Routine 03/23/2024 6:15 AM RACE BOARD ATTENDANT DIFFERENTIAL AUTO Routine 03/23/2024 6:1 5 AM RACE BOARD ATTENDANT CBC WITH AUTO DIFFERENTIAL Routine 03/23/2024 6:15 AM RACE BOARD ATTENDANT BASIC METABOLIC PANEL Routine 03/23/2024 6:15 AM RACE BOARD ATTENDANT POCT GLUCOSE DEVICE Routine 03/22/2024 8 :17 PM RACE BOARD ATTENDANT POCT GLUCOSE DEVICE Routine 03/22/2024 6 :38 PM RACE BOARD ATTENDANT POCT GLUCOSE DEVICE Routine 03/22/2024 1 2:46 PM RACE BOARD ATTENDANT POCT GLUCOSE DEVICE Routine 03/22/2024 7 :19 AM RACE BOARD ATTENDANT BASIC METABOLIC PANEL Timed 03/22/2024 4:49 AM RACE BOARD ATTENDANT EGFR Timed 03/22/2024 4:49 AM RACE BOARD ATTENDANT DIFFERENTIAL AUTO Routine 03/22/2024 4:4 9 AM RACE BOARD ATTENDANT VANCOMYCIN LEVEL RANDOM Timed 03/22/19 25 4:49 AM RACE BOARD ATTENDANT CBC WITH AUTO DIFFERENTIAL Routine 03/22/2024 4:49 AM RACE BOARD ATTENDANT POCT GLUCOSE DEVICE Routine 03/21/2024 8 :14 PM RACE BOARD ATTENDANT POCT GLUCOSE DEVICE Routine 03/21/2024 5 :29 PM RACE BOARD ATTENDANT HEMODIALYSIS Routine 03/21/2024 2:09 PM RACE BOARD ATTENDANT US ARTERIAL DOPPLER LOWER EXTREMITY BILATERAL IP Routine 03/21/2024 1:52 PM RACE BOARD ATTENDANT POCT GLUCOSE DEVICE Routine 03/21/2024 1 2:14 PM RACE BOARD ATTENDANT T4, FREE Routine 03/21/2024 7:37 AM RACE BOARD ATTENDANT THYROID FUNCTION CASCADE Routine 03/21/2024 7:37 AM RACE BOARD ATTENDANT VANCOMYCIN LEVEL RANDOM Routine 03/21/19 25 7:37 AM RACE BOARD ATTENDANT EGFR Routine 03/21/2024 7:37 AM RACE BOARD ATTENDANT DIFFERENTIAL AUTO Routine 03/21/2024 7:3 7 AM RACE BOARD ATTENDANT BASIC METABOLIC PANEL Routine 03/21/2024 7:37 AM RACE BOARD ATTENDANT CBC WITH AUTO DIFFERENTIAL Routine 03/21/2024 7:37 AM RACE BOARD ATTENDANT AEROBIC CULTURE AND GRAM STAIN Routine 03/21/2024 1:40 AM RACE BOARD ATTENDANT BLOOD CULTURE STAT 03/20/2024 7:13 PM RACE BOARD ATTENDANT EGFR STAT 03/20/2024 7:12 PM RACE BOARD ATTENDANT BASIC METABOLIC PANEL STAT 03/20/2024 7:12 PM RACE BOARD ATTENDANT BLOOD CULTURE STAT 03/20/2024 7:11 PM RACE BOARD ATTENDANT HEMODIALYSIS Routine 03/20/2024 4:32 PM RACE BOARD ATTENDANT POTASSIUM LEVEL STAT 03/20/2024 4:11 PM RACE BOARD ATTENDANT HEMODIALYSIS Routine 03/20/2024 2:17 PM RACE BOARD ATTENDANT XR FOOT RIGHT 3 OR MORE VIEWS ED 03/20/2024 1:30 PM RACE BOARD ATTENDANT EGFR STAT 03/20/2024 1:19 PM RACE BOARD ATTENDANT LIPASE STAT 03/20/2024 1:19 PM RACE BOARD ATTENDANT DIFFERENTIAL AUTO STAT 03/20/2024 1:1 9 PM RACE BOARD ATTENDANT COMPREHENSIVE METABOLIC PANEL STAT 03/20/2024 1:19 PM RACE BOARD ATTENDANT CBC WITH AUTO DIFFERENTIAL STAT 03/20/2024 1:19 PM RACE BOARD ATTENDANT DIFFERENTIAL AUTO Add On 03/12/2024 10: 56 PM RACE BOARD ATTENDANT CBC WITH AUTO DIFFERENTIAL Add-On 03/12/2024 10:56 PM RACE BOARD ATTENDANT TROPONIN T HIGH-SENSITIVITY 6-HOUR Timed 03/12/2024 10:56 PM RACE BOARD ATTENDANT POTASSIUM LEVEL STAT 03/12/2024 7:15 PM RACE BOARD ATTENDANT TROPONIN T HIGH-SENSITIVITY 2-HOUR Timed 03/12/2024 6:58 PM RACE BOARD ATTENDANT HEMODIALYSIS Routine 03/12/2024 6:03 PM RACE BOARD ATTENDANT EGFR STAT 03/12/2024 4:56 PM RACE BOARD ATTENDANT TROPONIN T HIGH-SENSITIVITY SERIES (BASELINE, 2HR, 4HR, 6HR) STAT 03/12/2024 4:56 PM RACE BOARD ATTENDANT PHOSPHORUS STAT 03/12/2024 4:56 PM RACE BOARD ATTENDANT MAGNESIUM STAT 03/12/2024 4:56 PM RACE BOARD ATTENDANT BASIC METABOLIC PANEL STAT 03/12/2024 4:56 PM RACE BOARD ATTENDANT ECG 12-LEAD Routine 03/12/2024 4:53 PM RACE BOARD ATTENDANT FL CRITICAL CARE ILL/INJURED PATIENT INIT 30-74 MIN Routine 03/12/2024 4:30 PM RACE BOARD ATTENDANT HEMODIALYSIS Routine 02/28/2024 7:57 AM RACE BOARD ATTENDANT EGFR Routine 02/28/2024 3:58 AM RACE BOARD ATTENDANT T4, FREE Routine 02/28/2024 3:58 AM RACE BOARD ATTENDANT DIFFERENTIAL AUTO Routine 02/28/2024 3:5 8 AM RACE BOARD ATTENDANT MAGNESIUM Routine 02/28/2024 3:58 AM RACE BOARD ATTENDANT HEMOGLOBIN A1C Routine 02/28/2024 3:58 AM RACE BOARD ATTENDANT THYROID FUNCTION CASCADE Routine 02/28/2024 3:58 AM RACE BOARD ATTENDANT CBC WITH AUTO DIFFERENTIAL Routine 02/28/2024 3:58 AM RACE BOARD ATTENDANT PHOSPHORUS Routine 02/28/2024 3:58 AM RACE BOARD ATTENDANT BASIC METABOLIC PANEL Routine 02/28/2024 3:58 AM RACE BOARD ATTENDANT POTASSIUM LEVEL STAT 02/27/2024 4:30 PM RACE BOARD ATTENDANT HEPATITIS B SURFACE ANTIBODY (IMMUNE STATUS) STAT 02/27/2024 4:30 PM RACE BOARD ATTENDANT HEPATITIS B SURFACE ANTIGEN STAT 02/27/2024 4:30 PM RACE BOARD ATTENDANT HEMODIALYSIS Routine 02/27/2024 3:48 PM RACE BOARD ATTENDANT HEMODIALYSIS Routine 02/27/2024 3:39 PM RACE BOARD ATTENDANT POCT GLUCOSE DEVICE Routine 02/27/2024 3 :37 PM RACE BOARD ATTENDANT XR TRANSFER OF OUTSIDE FILMS Routine 02/27/2024 9:15 AM RACE BOARD ATTENDANT XR TRANSFER OF OUTSIDE FILMS Routine 02/26/2024 4:40 PM RACE BOARD ATTENDANT LIPID PANEL Routine 11/14/2023 5:38 AM CDT from Last 3 Months or Most Recently Relevant to Health Maintenance Results * Transfuse RBC (04/04/2024 3:28 PM RACE BOARD ATTENDANT) Blood us Kang Lyles MD BLOOD TRANSFUSION ORDERABLES Final Result Performing Organization Address [facility] Co de Phone Number [address] [employer] [place], [place] [id number] * Prepare RBC: 1 Units (04/04/2024 10:08 AM RACE BOARD ATTENDANT) Units requested 1 Units requested Ready [facility] Unit Number [id number] Product code [id number] [facility] Blood Expiration Date [id number] [facility] Product Blood Type (for scanning) 9500 [facility] Product Blood Type ONEG [facility] Dispense Status DISPENSED [facility] Blood 04/04/2024 10:0 8 AM RACE BOARD ATTENDANT 04/04/2024 10:08 AM RACE BOARD ATTENDANT Kang Lyles MD BLOOD BANK PRODUCT ORDERABLE S Final Result Performing Organization Address [facility] Co de Phone Number [address] [place] [employer] [place] [address] * (ABNORMAL) eGFR (04/04/2024 7:35 AM RACE BOARD ATTENDANT) [facility] eGFR 10(L) >=60 mL/min/1. 73 m2 Comment: [...] last reviewed 2021. 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 04/04/2024 8:19 AM RACE BOARD ATTENDANT us Kang Lyles MD LAB BLOOD ORDERABLES Final R esult [facility] [address] [facility] [place] [address] * Differential, auto (04/04/2024 7:35 AM RACE BOARD ATTENDANT) [facility] Neutrophil abs 3.2 1.5 - 6.5 K/cumm Imm gran abs 0.0 0.0 - 0.1 K/cumm [facility] Lymphocyte abs 0.9 0.8 - 3.3 K/cumm [facility] Monocyte abs 0.3 0.2 - 0.8 K/cumm [facility] Eosinophil abs 0.1 0.0 - 0.5 K/cumm [facility] Basophil abs 0.0 0.0 - 0.1 K/cumm [facility] Neutrophil pct 69.8 % [facility] Comment: Interpretive Data Percent cell count reference ranges are not reported, since discordance with absolute values may lead to misinterpretation of CBC data. Current Interpretive Data was last revised on 2017. Imm gran pct 0.4 % [facility] Comment: Interpretive Data Percent cell count reference ranges are not reported, since discordance with absolute values may lead to misinterpretation of CBC data. Current Interpretive Data was last revised on 2017. Lymphocyte pct 20.8 % [facility] Comment: Interpretive Data Percent cell count reference ranges are not reported, since discordance with absolute values may lead to misinterpretation of CBC data. Current Interpretive Data was last revised on 2017. Monocyte pct 6.2 % [facility] Comment: Interpretive Data Percent cell count reference ranges are not reported, since discordance with absolute values may lead to misinterpretation of CBC data. Current Interpretive Data was last revised on 2017. Eosinophil pct 2.6 % [facility] Comment: Interpretive Data Percent cell count reference ranges are not reported, since discordance with absolute values may lead to misinterpretation of CBC data. Current Interpretive Data was last revised on 2017. Basophil pct 0.2 % [facility] Comment: Interpretive Data Percent cell count reference ranges are not reported, since discordance with absolute values may lead to misinterpretation of CBC data. Current Interpretive Data was last revised on 2017. 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 04/04/2024 8:18 AM RACE BOARD ATTENDANT us Ricki Mills MD LAB BLOOD ORDERABLES Final Result [facility] [address] [facility] Department of Laboratories [place], [place] [id number] * (ABNORMAL) CBC with auto differential (04/04/2024 7:35 AM RACE BOARD ATTENDANT) WBC 4.5 3.8 - 9.9 K/cumm Hgb 7.0(L) 13.0 - 17.5 g/dL [facility] Hct 22.6(L) 38.9 - 50.3 % [facility] Plt 195 150 - 400 K/cumm [facility] MPV 9.9 9.1 - 12.3 fL [facility] RBC 2.59(L) 4.30 - 5.80 M/cumm [facility] MCV 87.3 81.3 - 96.4 fL [facility] MCH 27.0(L) 27.1 - 33.3 pg [facility] MCHC 31.0(L) 32.3 - 35.7 g/dL [facility] RDW CV 17.5(H) 11.1 - 14.9 % [facility] RDW SD 54.2(H) 35.7 - 48.1 fL [facility] NRBC abs 0.00 0.00 - 0.01 K/cumm [facility] 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 04/04/2024 8:18 AM RACE BOARD ATTENDANT us Ricki Mills MD LAB BLOOD ORDERABLES Final Result Performing Organization Address [facility] Co de Phone Number [address] [place] [address] * (ABNORMAL) CRP (acute phase) (04/04/2024 7:35 AM RACE BOARD ATTENDANT) [facility] CRP 46.9(H) <=10.0 mg/L 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 04/04/2024 8:19 AM RACE BOARD ATTENDANT Kang Lyles MD LAB BLOOD ORDERABLES Final R esult Performing Organization Address City/[facility] Co de Phone Number [address] [address] * (ABNORMAL) Basic metabolic panel (04/04/2024 7:35 AM RACE BOARD ATTENDANT) [facility] Sodium 130(L) 135 - 145 mmol/L Potassium, pl 5.3(H) 3.3 - 4.9 mmol/L [facility] Chloride 91(L) 97 - 110 mmol/L [facility] CO2 28 22 - 32 mmol/L [facility] Anion gap 11 2 - 15 mmol/L [facility] BUN 37(H) 6 - 25 mg/dL [facility] Creatinine 6.68(H) 0.80 - 1.30 mg/dL [facility] Glucose 109 70 - 199 mg/dL [facility] Comment: Interpretive Data Fasting glucose >/= 126 [...] 2022. Calcium 9.2 8.5 - 10.3 mg/dL [facility] 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 04/04/2024 8:19 AM RACE BOARD ATTENDANT us Kang Lyles MD LAB BLOOD ORDERABLES Final R esult [facility] [address] [facility] Department [place] [address] * Differential, auto (04/03/2024 3:37 PM RACE BOARD ATTENDANT) Neutrophil abs 4.7 1.5 - 6.5 K/cumm Imm gran abs 0.0 0.0 - 0.1 K/cumm [facility] Lymphocyte abs 1.0 0.8 - 3.3 K/cumm [facility] Monocyte abs 0.4 0.2 - 0.8 K/cumm [facility] Eosinophil abs 0.1 0.0 - 0.5 K/cumm [facility] Basophil abs 0.0 0.0 - 0.1 K/cumm [facility] Neutrophil pct 75.3 % [facility] Comment: Interpretive Data Percent cell count reference ranges are not reported, since discordance with absolute values may lead to misinterpretation of CBC data. Current Interpretive Data was last revised on 2017. Imm gran pct 0.3 % [facility] Comment: Interpretive Data Percent cell count reference ranges are not reported, since discordance with absolute values may lead to misinterpretation of CBC data. Current Interpretive Data was last revised on 2017. Lymphocyte pct 15.7 % [facility] Comment: Interpretive Data Percent cell count reference ranges are not reported, since discordance with absolute values may lead to misinterpretation of CBC data. Current Interpretive Data was last revised on 2017. Monocyte pct 6.6 % [facility] Comment: Interpretive Data Percent cell count reference ranges are not reported, since discordance with absolute values may lead to misinterpretation of CBC data. Current Interpretive Data was last revised on 2017. Eosinophil pct 1.9 % [facility] Comment: Interpretive Data Percent cell count reference ranges are not reported, since discordance with absolute values may lead to misinterpretation of CBC data. Current Interpretive Data was last revised on 2017. Basophil pct 0.2 % [facility] Comment: Interpretive Data Percent cell count reference ranges are not reported, since discordance with absolute values may lead to misinterpretation of CBC data. Current Interpretive Data was last revised on 2017. Blood 04/03/2024 3:37 PM RACE BOARD ATTENDANT 04/03/2024 3:42 PM RACE BOARD ATTENDANT us Kang Lyles MD LAB BLOOD ORDERABLES Final R esult [facility] [address] [facility] Department of Laboratories [place], [place] [id number] * (ABNORMAL) CBC with auto differential (04/03/2024 3:37 PM RACE BOARD ATTENDANT) WBC 6.2 3.8 - 9.9 K/cumm Hgb 8.2(L) 13.0 - 17.5 g/dL [facility] Hct 25.7(L) 38.9 - 50.3 % [facility] Plt 194 150 - 400 K/cumm [facility] MPV 8.9(L) 9.1 - 12.3 fL [facility] RBC 2.99(L) 4.30 - 5.80 M/cumm [facility] MCV 86.0 81.3 - 96.4 fL [facility] MCH 27.4 27.1 - 33.3 pg [facility] MCHC 31.9(L) 32.3 - 35.7 g/dL [facility] RDW CV 17.2(H) 11.1 - 14.9 % [facility] RDW SD 52.0(H) 35.7 - 48.1 fL [facility] NRBC abs 0.00 0.00 - 0.01 K/cumm [facility] Blood 04/03/2024 3:37 PM RACE BOARD ATTENDANT 04/03/2024 3:42 PM RACE BOARD ATTENDANT Kang Lyles MD LAB BLOOD ORDERABLES Final R esult Performing Organization Address [facility] de Phone Number [address] [place] [address] * ABO/Rh (04/03/2024 3:37 PM RACE BOARD ATTENDANT) ABO/Rh O Negative Blood 04/03/2024 3:37 PM RACE BOARD ATTENDANT 04/03/2024 3:42 PM RACE BOARD ATTENDANT Narrative [facility] - 04/03/2024 4:20 PM RACE BOARD ATTENDANT Has the patient had Daratumumab or Isatuximab in the past 6 months?->Unknown Kang Lyles MD LAB BLOOD BANK TEST ORDERABL ES Final Result Performing Organization Address [facility] de Phone Number [address] [place] [address] * Crossmatch (04/03/2024 3:37 PM RACE BOARD ATTENDANT) Crossmatch Compatible [facility] Unit number for crossmatch [id number] [facility] Blood 04/03/2024 3:37 PM RACE BOARD ATTENDANT 04/03/2024 3:42 PM RACE BOARD ATTENDANT Kang Lyles MD LAB BLOOD BANK TEST ORDERABL ES Final Result Performing Organization Address [facility] Co de Phone Number [address] [place] [address] * Antibody screen (04/03/2024 3:37 PM RACE BOARD ATTENDANT) Fermin, indirect, Gel Interpretation Negative ABSC Blood 04/03/2024 3:37 PM RACE BOARD ATTENDANT 04/03/2024 3:42 PM RACE BOARD ATTENDANT Narrative [facility] - 04/03/2024 4:20 PM RACE BOARD ATTENDANT Has the patient had Daratumumab or Isatuximab in the past 6 months?->Unknown Kang Lyles MD LAB BLOOD BANK TEST ORDERABL ES Final Result Performing Organization Address [facility] Co de Phone Number [address] [place] [employer] [place] [address] * (ABNORMAL) eGFR (04/03/2024 8:00 AM RACE BOARD ATTENDANT) Pathologist [facility] eGFR 7(L) >=60 mL/min/1. 73 m2 Comment: [...] last reviewed 2021. Blood 04/03/2024 8:00 AM RACE BOARD ATTENDANT 04/03/2024 8:16 AM RACE BOARD ATTENDANT Kang Lyles MD LAB BLOOD ORDERABLES Final R esult Performing Organization Address [facility]/ZIP Co de Phone Number [address] [place] [address] * Differential, auto (04/03/2024 8:00 AM RACE BOARD ATTENDANT) Neutrophil abs 3.7 1.5 - 6.5 K/cumm Imm gran abs 0.0 0.0 - 0.1 K/cumm [facility] Lymphocyte abs 0.9 0.8 - 3.3 K/cumm [facility] Monocyte abs 0.3 0.2 - 0.8 K/cumm [facility] Eosinophil abs 0.1 0.0 - 0.5 K/cumm [facility] Basophil abs 0.0 0.0 - 0.1 K/cumm [facility] Neutrophil pct 73.9 % [facility] Comment: Interpretive Data Percent cell count reference ranges are not reported, since discordance with absolute values may lead to misinterpretation of CBC data. Current Interpretive Data was last revised on 2017. Imm gran pct 0.4 % [facility] Comment: Interpretive Data Percent cell count reference ranges are not reported, since discordance with absolute values may lead to misinterpretation of CBC data. Current Interpretive Data was last revised on 2017. Lymphocyte pct 16.8 % [facility] Comment: Interpretive Data Percent cell count reference ranges are not reported, since discordance with absolute values may lead to misinterpretation of CBC data. Current Interpretive Data was last revised on 2017. Monocyte pct 6.7 % [facility] Comment: Interpretive Data Percent cell count reference ranges are not reported, since discordance with absolute values may lead to misinterpretation of CBC data. Current Interpretive Data was last revised on 2017. Eosinophil pct 2.0 % [facility] Comment: Interpretive Data Percent cell count reference ranges are not reported, since discordance with absolute values may lead to misinterpretation of CBC data. Current Interpretive Data was last revised on 2017. Basophil pct 0.2 % [facility] Comment: Interpretive Data Percent cell count reference ranges are not reported, since discordance with absolute values may lead to misinterpretation of CBC data. Current Interpretive Data was last revised on 2017. Blood 04/03/2024 8:00 AM RACE BOARD ATTENDANT 04/03/2024 8:16 AM RACE BOARD ATTENDANT us Ricki Mills MD LAB BLOOD ORDERABLES Final Result Performing Organization Address [facility] Co de Phone Number [address] [address] * (ABNORMAL) CBC with auto differential (04/03/2024 8:00 AM RACE BOARD ATTENDANT) WBC 5.1 3.8 - 9.9 K/cumm Hgb 7.0(L) 13.0 - 17.5 g/dL [facility] Hct 21.7(L) 38.9 - 50.3 % [facility] Plt 183 150 - 400 K/cumm [facility] MPV 9.5 9.1 - 12.3 fL [facility] RBC 2.56(L) 4.30 - 5.80 M/cumm [facility] MCV 84.8 81.3 - 96.4 fL [facility] MCH 27.3 27.1 - 33.3 pg [facility] MCHC 32.3 32.3 - 35.7 g/dL [facility] RDW CV 17.2(H) 11.1 - 14.9 % [facility] RDW SD 51.5(H) 35.7 - 48.1 fL [facility] NRBC abs 0.00 0.00 - 0.01 K/cumm [facility] Blood 04/03/2024 8:00 AM RACE BOARD ATTENDANT 04/03/2024 8:16 AM RACE BOARD ATTENDANT Ricki Mills MD LAB BLOOD ORDERABLES Final Result Performing Organization Address [facility] Co de Phone Number [address] [address] * (ABNORMAL) CRP (acute phase) (04/03/2024 8:00 AM RACE BOARD ATTENDANT) [facility] CRP 45.0(H) <=10.0 mg/L Blood 04/03/2024 8:00 AM RACE BOARD ATTENDANT 04/03/2024 8:16 AM RACE BOARD ATTENDANT Kang Lyles MD LAB BLOOD ORDERABLES Final R esult Performing Organization Address [facility] Co de Phone Number [facility] [place] [address] * (ABNORMAL) Haptoglobin (04/03/2024 8:00 AM RACE BOARD ATTENDANT) [facility] Haptoglobin 215(H) 30 - 200 mg/dL Blood 04/03/2024 8:00 AM RACE BOARD ATTENDANT 04/03/2024 8:16 AM RACE BOARD ATTENDANT Kang Lyles MD LAB BLOOD ORDERABLES Final R [facility] Performing Organization Address [facility] de Phone Number JESSIE [facility] [place] [address] * (ABNORMAL) Basic metabolic panel (04/03/2024 8:00 AM RACE BOARD ATTENDANT) [facility] Sodium 131(L) 135 - 145 mmol/L Potassium, pl 5.5(H) 3.3 - 4.9 mmol/L [facility] Chloride 92(L) 97 - 110 mmol/L [facility] CO2 27 22 - 32 mmol/L [facility] Anion gap 12 2 - 15 mmol/L [facility] BUN 51(H) 6 - 25 mg/dL [facility] Creatinine 8.91(H) 0.80 - 1.30 mg/dL [facility] Glucose 114 70 - 199 mg/dL [facility] Comment: Interpretive Data Fasting glucose >/= 126 [...] 2022. Calcium 8.7 8.5 - 10.3 mg/dL [facility] Blood 04/03/2024 8:00 AM RACE BOARD ATTENDANT 04/03/2024 8:16 AM RACE BOARD ATTENDANT Kang Lyles MD LAB BLOOD ORDERABLES Final R esult Performing Organization Address [facility] de Phone Number JESSIE [address] [place] [address] * (ABNORMAL) eGFR (04/02/2024 2:15 PM RACE BOARD ATTENDANT) Pathologist [facility] eGFR 8(L) >=60 mL/min/1. 73 m2 Comment: [...] data was last reviewed 2021. Blood 04/02/2024 2:1 5 PM RACE BOARD ATTENDANT 04/02/2024 2:25 PM RACE BOARD ATTENDANT Kang Lyles MD LAB BLOOD ORDERABLES Final R esult Performing Organization Address [facility] Co de Phone Number JESSIE [address] [place] [place] [address] * Differential, auto (04/02/2024 2:15 PM RACE BOARD ATTENDANT) [facility] Neutrophil abs 3.9 1.5 - 6.5 K/cumm Imm gran abs 0.0 0.0 - 0.1 K/cumm [facility] Lymphocyte abs 0.8 0.8 - 3.3 K/cumm [facility] Monocyte abs 0.4 0.2 - 0.8 K/cumm [facility] Eosinophil abs 0.1 0.0 - 0.5 K/cumm [facility] Basophil abs 0.0 0.0 - 0.1 K/cumm [facility] Neutrophil pct 75.4 % [facility] Comment: Interpretive Data Percent cell count reference ranges are not reported, since discordance with absolute values may lead to misinterpretation of CBC data. Current Interpretive Data was last revised on 2017. Imm gran pct 0.8 % [facility] Comment: Interpretive Data Percent cell count reference ranges are not reported, since discordance with absolute values may lead to misinterpretation of CBC data. Current Interpretive Data was last revised on 2017. Lymphocyte pct 15.1 % [facility] Comment: Interpretive Data Percent cell count reference ranges are not reported, since discordance with absolute values may lead to misinterpretation of CBC data. Current Interpretive Data was last revised on 2017. Monocyte pct 7.0 % [facility] Comment: Interpretive Data Percent cell count reference ranges are not reported, since discordance with absolute values may lead to misinterpretation of CBC data. Current Interpretive Data was last revised on 2017. Eosinophil pct 1.5 % [facility] Comment: Interpretive Data Percent cell count reference ranges are not reported, since discordance with absolute values may lead to misinterpretation of CBC data. Current Interpretive Data was last revised on 2017. Basophil pct 0.2 % [facility] Comment: Interpretive Data Percent cell count reference ranges are not reported, since discordance with absolute values may lead to misinterpretation of CBC data. Current Interpretive Data was last revised on 2017. Blood 04/02/2024 2:15 PM RACE BOARD ATTENDANT 04/02/2024 2:25 PM RACE BOARD ATTENDANT us Ricki Mills MD LAB BLOOD ORDERABLES Final Result [facility] [address] [facility] Department of Laboratories [place], [place] [id number] * (ABNORMAL) CBC with auto differential (04/02/2024 2:15 PM RACE BOARD ATTENDANT) WBC 5.2 3.8 - 9.9 K/cumm Hgb 7.5(L) 13.0 - 17.5 g/dL [facility] Hct 24.0(L) 38.9 - 50.3 % [facility] Plt 208 150 - 400 K/cumm [facility] MPV 9.5 9.1 - 12.3 fL [facility] RBC 2.78(L) 4.30 - 5.80 M/cumm [facility] MCV 86.3 81.3 - 96.4 fL [facility] MCH 27.0(L) 27.1 - 33.3 pg [facility] MCHC 31.3(L) 32.3 - 35.7 g/dL [facility] RDW CV 16.9(H) 11.1 - 14.9 % [facility] RDW SD 51.8(H) 35.7 - 48.1 fL [facility] NRBC abs 0.00 0.00 - 0.01 K/cumm [facility] Blood 04/02/2024 2:15 PM RACE BOARD ATTENDANT 04/02/2024 2:25 PM RACE BOARD ATTENDANT us Ricki Mills MD LAB BLOOD ORDERABLES Final Result Performing Organization Address City/[facility]/ZIP Co de Phone Number [address] [employer] [address] * (ABNORMAL) Vitamin D 25 hydroxy (04/02/2024 2:15 PM RACE BOARD ATTENDANT) Pathologist [facility] Vitamin D 25-OH 14.0(L) 30.0 - 80.0 ng/mL Blood 04/02/2024 2:15 PM RACE BOARD ATTENDANT 04/02/2024 2:25 PM RACE BOARD ATTENDANT us Kang Lyles MD LAB BLOOD ORDERABLES Final R esult [address] [place] [address] * Folate (04/02/2024 2:15 PM RACE BOARD ATTENDANT) Folic acid 5.4 >=5.0 ng/mL Blood 04/02/2024 2:15 PM RACE BOARD ATTENDANT 04/02/2024 2:25 PM RACE BOARD ATTENDANT Kang Lyles MD LAB BLOOD ORDERABLES Final R esult Performing Organization Address [facility] Co de Phone Number [address] [address] * Vitamin B12 (04/02/2024 2:15 PM RACE BOARD ATTENDANT) [facility] Vitamin B12 548 230 - 1,250 pg/mL Blood 04/02/2024 2:15 PM RACE BOARD ATTENDANT 04/02/2024 2:25 PM RACE BOARD ATTENDANT Kang Lyles MD LAB BLOOD ORDERABLES Final R esult Performing Organization Address [facility] de Phone Number [address] [address] * (ABNORMAL) Basic metabolic panel (04/02/2024 2:15 PM RACE BOARD ATTENDANT) [facility] Sodium 135 135 - 145 mmol/L Potassium, pl 5.0(H) 3.3 - 4.9 mmol/L [facility] Chloride 93(L) 97 - 110 mmol/L [facility] CO2 29 22 - 32 mmol/L [facility] Anion gap 13 2 - 15 mmol/L [facility] BUN 42(H) 6 - 25 mg/dL [facility] Creatinine 7.61(H) 0.80 - 1.30 mg/dL [facility] Glucose 145 70 - 199 mg/dL [facility] Comment: Interpretive Data Fasting glucose >/= 126 [...] 10.3 mg/dL JESS[facility] Blood 04/02/2024 2:15 PM RACE BOARD ATTENDANT 04/02/2024 2:25 PM RACE BOARD ATTENDANT Kang Lyles MD LAB BLOOD ORDERABLES Final R esult Performing Organization Address [facility] Co de Phone Number JESSIE [address] [employer] [address] * US VEIN DUPLEX LOWER EXTREMITY RIGHT LIMITED, UNILATERAL (04/01/2024 3:45 PM RACE BOARD ATTENDANT) Anatomical Region Laterality Modality Vascular Right Ultrasound 04/01/2024 Narrative 04/03/2024 11:20 AM RACE BOARD ATTENDANT [employer] Job ID: [id number] [employer] Document ID: [id number] Dictated date/time: [id number] LOWER EXTREMITY VENOUS DUPLEX REASON FOR EXAM Edema. FINDINGS Veins throughout the right lower extremity show spontaneous and phasic flow with normal augmentation. Veins competent compressible. Left common femoral vein shows normal flow and compressibility as well. OVERALL IMPRESSION Negative for deep venous thrombosis right lower extremity and left common femoral vein. Job ID/Internal Job ID: [id number] Kang Lyles MD [facility] PROCEDURES Final Resu lt * BUN (04/01/2024 12:41 PM RACE BOARD ATTENDANT) BUN 20 6 - 25 mg/dL Blood 04/01/2024 12:4 1 PM RACE BOARD ATTENDANT 04/01/2024 1:22 PM RACE BOARD ATTENDANT us Royer Odom MD LAB BLOOD ORDERABLES Final Re sult Performing Organization Address City/[facility]/ZIP Co de Phone Number JESSIE [address] [employer] [address] * (ABNORMAL) PTH (04/01/2024 10:05 AM RACE BOARD ATTENDANT) PTH 1,120(H) 15 - 65 pg/mL Blood 04/01/2024 10:0 5 AM RACE BOARD ATTENDANT 04/01/2024 10:10 AM RACE BOARD ATTENDANT Royer Oodm MD LAB BLOOD ORDERABLES Final Re sult Performing Organization Address [facility] Co de Phone Number JESSIE [address] [place] [address] * (ABNORMAL) eGFR (04/01/2024 9:32 AM RACE BOARD ATTENDANT) Pathologist [facility] eGFR 6(L) >=60 mL/min/1. 73 m2 Comment: [...] last reviewed 2021. Blood 04/01/2024 9:32 AM RACE BOARD ATTENDANT 04/01/2024 10:10 AM RACE BOARD ATTENDANT us Luis Nieto MD LAB BLOOD ORDERABLES Final R esult Performing Organization Address [facility] [facility]/ZIP Co de Phone Number [address] [place] [address] * Differential, auto (04/01/2024 9:32 AM RACE BOARD ATTENDANT) [facility] Neutrophil abs 3.3 1.5 - 6.5 K/cumm Imm gran abs 0.0 0.0 - 0.1 K/cumm [facility] Lymphocyte abs 0.8 0.8 - 3.3 K/cumm [facility] Monocyte abs 0.3 0.2 - 0.8 K/cumm [facility] Eosinophil abs 0.1 0.0 - 0.5 K/cumm [facility] Basophil abs 0.0 0.0 - 0.1 K/cumm [facility] Neutrophil pct 72.4 % [facility] Comment: Interpretive Data Percent cell count reference ranges are not reported, since discordance with absolute values may lead to misinterpretation of CBC data. Current Interpretive Data was last revised on 2017. Imm gran pct 0.7 % [facility] Comment: Interpretive Data Percent cell count reference ranges are not reported, since discordance with absolute values may lead to misinterpretation of CBC data. Current Interpretive Data was last revised on 2017. Lymphocyte pct 18.3 % [facility] Comment: Interpretive Data Percent cell count reference ranges are not reported, since discordance with absolute values may lead to misinterpretation of CBC data. Current Interpretive Data was last revised on 2017. Monocyte pct 6.6 % [facility] Comment: Interpretive Data Percent cell count reference ranges are not reported, since discordance with absolute values may lead to misinterpretation of CBC data. Current Interpretive Data was last revised on 2017. Eosinophil pct 1.8 % [facility] Comment: Interpretive Data Percent cell count reference ranges are not reported, since discordance with absolute values may lead to misinterpretation of CBC data. Current Interpretive Data was last revised on 2017. Basophil pct 0.2 % [facility] Comment: Interpretive Data Percent cell count reference ranges are not reported, since discordance with absolute values may lead to misinterpretation of CBC data. Current Interpretive Data was last revised on 2017. Blood 04/01/2024 9:32 AM RACE BOARD ATTENDANT 04/01/2024 10:10 AM RACE BOARD ATTENDANT us Ricki Mills MD LAB BLOOD ORDERABLES Final Result [facility] [address] [facility] [place] [address] * (ABNORMAL) Iron profile w/ IBC (04/01/2024 9:32 AM RACE BOARD ATTENDANT) Pathologist [facility] Iron 60 50 - 150 mcg/dL TIBC 181(L) 250 - 400 mcg/dL [facility] Transferrin saturation 33 20 - 50 % [facility] Blood 04/01/2024 9:32 AM RACE BOARD ATTENDANT 04/01/2024 10:10 AM RACE BOARD ATTENDANT us Royer Odom MD LAB BLOOD ORDERABLES Final Re sult Performing Organization Address City/[facility]/ZIP Co de Phone Number [address] [employer] [address] * (ABNORMAL) CBC with auto differential (04/01/2024 9:32 AM RACE BOARD ATTENDANT) [facility] WBC 4.5 3.8 - 9.9 K/cumm Hgb 7.5(L) 13.0 - 17.5 g/dL [facility] Hct 23.1(L) 38.9 - 50.3 % [facility] Plt 178 150 - 400 K/cumm [facility] MPV 9.7 9.1 - 12.3 fL [facility] RBC 2.78(L) 4.30 - 5.80 M/cumm [facility] MCV 83.1 81.3 - 96.4 fL [facility] MCH 27.0(L) 27.1 - 33.3 pg [facility] MCHC 32.5 32.3 - 35.7 g/dL [facility] RDW CV 16.3(H) 11.1 - 14.9 % [facility] RDW SD 49.1(H) 35.7 - 48.1 fL [facility] NRBC abs 0.00 0.00 - 0.01 K/cumm [facility] Blood 04/01/2024 9:32 AM RACE BOARD ATTENDANT 04/01/2024 10:10 AM RACE BOARD ATTENDANT us Ricki Mills MD LAB BLOOD ORDERABLES Final Result Performing Organization Address City/[facility]/ZIP Co de Phone Number [address] [employer] [address] * (ABNORMAL) Phosphorus (04/01/2024 9:32 AM RACE BOARD ATTENDANT) [facility] Phosphorus, pl 5.5(H) 2.3 - 4.5 mg/dL Blood 04/01/2024 9:32 AM RACE BOARD ATTENDANT 04/01/2024 10:10 AM RACE BOARD ATTENDANT Royer Odom MD LAB BLOOD ORDERABLES Final Re sult Performing Organization Address [facility] de Phone Number [address] [place] [address] * (ABNORMAL) Ferritin (04/01/2024 9:32 AM RACE BOARD ATTENDANT) [facility] Ferritin 891(H) 30 - 400 ng/mL Blood 04/01/2024 9:32 AM RACE BOARD ATTENDANT 04/01/2024 10:10 AM RACE BOARD ATTENDANT Royer Odom MD LAB BLOOD ORDERABLES Final Re sult Performing Organization Address [facility] de Phone Number [address] [place] [address] * (ABNORMAL) Comprehensive metabolic panel (04/01/2024 9:32 AM RACE BOARD ATTENDANT) [facility] Sodium 131(L) 135 - 145 mmol/L Potassium, pl 5.4(H) 3.3 - 4.9 mmol/L [facility] Chloride 91(L) 97 - 110 mmol/L [facility] CO2 26 22 - 32 mmol/L [facility] Anion gap 14 2 - 15 mmol/L [facility] BUN 53(H) 6 - 25 mg/dL [facility] Creatinine 9.64(H) 0.80 - 1.30 mg/dL [facility] Glucose 127 70 - 199 mg/dL [facility] Comment: Interpretive Data Fasting glucose >/= 126 [...] 2022. Calcium 8.5 8.5 - 10.3 mg/dL [facility] Bilirubin, total 0.3 0.1 - 1.2 mg/dL [facility] Protein, pl 6.1(L) 6.5 - 8.5 g/dL [facility] Albumin 3.2(L) 3.5 - 5.0 g/dL [facility] Alk phos 292(H) 40 - 130 Units/L [facility] ALT 7 7 - 55 Units/L [facility] AST 16 10 - 50 Units/L [facility] Blood 04/01/2024 9:32 AM RACE BOARD ATTENDANT 04/01/2024 10:10 AM RACE BOARD ATTENDANT us Luis Nieto MD LAB BLOOD ORDERABLES Final R esult Performing Organization Address City/[facility]/ZIP Co de Phone Number [address] [employer] [address] * POCT glucose (03/31/2024 12:51 PM RACE BOARD ATTENDANT) [facility] Signature Glucose, POC 150 70 - 199 mg/dL Glucose comment 1 Use This Result [facility] Glucose comment 2 RN/MD Notified [facility] Blood 03/31/2024 12:5 1 PM RACE BOARD ATTENDANT 03/31/2024 12:51 PM RACE BOARD ATTENDANT us Inocencia Fair MD LAB POCT ORDERABLES - DEVICE Final Result Performing Organization Address City/[facility] Co de Phone Number [address] [employer] [address] * Surgical pathology (03/31/2024 12:03 PM RACE BOARD ATTENDANT) Tissue (Amputation non-tramatic) 03/31/2024 12:03 PM RACE BOARD ATTENDANT Narrative PATHOLOGY [facility] - 04/01/2024 3:40 PM RACE BOARD ATTENDANT [facility] Department of Pathology [address] [place] [address] Note to Patients: This report may contain [...] : 1980 (Age: 44) Gender: M Address: [address] [place] [address] Hospital #: [id number] Service: Medical Location: Patient Type: [facility] INPATIENT Taken: 03/31/2024 Received: 03/31/2024 Accessioned: 03/31/2024 [...] for gross examination only. SURESH Cramer, [place] ([facility]) Microscopic slide review and interpretation for this case was performed at [facility], Department of Surgical Pathology, [address] [facility] [id number], [place] [address] [facility] # [id number] us Ricki Mills MD LAB PATHOLOGY ORDERABLES F inal Result PATHOLOGY [facility] * FL AN ELECTIVE SUPRAGLOTTIC AIRWAY, FL AN PROCEDURE PLACEHOLDER (03/31/2024 11:44 AM RACE BOARD ATTENDANT) Narrative Sukumar Wilson CRNA - 03/31/2024 11:44 AM RACE BOARD ATTENDANT Sukumar Wilson CRNA 03/31/2024 11:45 AM Airway Patient location: OR Urgency: elective Indications for airway management: anesthesia Difficult airway: no Staff: Placed by: ARCHITECTURAL MANAGER: Sukumar Wilson CRNA Emergent airway documentation: Risks [...] esult * (ABNORMAL) eGFR (03/31/2024 7:41 AM RACE BOARD ATTENDANT) eGFR 8(L) >=60 mL/min/1. 73 m2 Comment: [...] last reviewed 2021. Blood 03/31/2024 7:41 AM RACE BOARD ATTENDANT 03/31/2024 7:54 AM RACE BOARD ATTENDANT us Ricki Mills MD LAB BLOOD ORDERABLES Final Result [place] [id number] [facility] Department [place] [address] * (ABNORMAL) Differential, auto (03/31/2024 7:41 AM RACE BOARD ATTENDANT) Pathologist [facility] Neutrophil abs 5.1 1.5 - 6.5 K/cumm Imm gran abs 0.1 0.0 - 0.1 K/cumm [facility] Lymphocyte abs 0.7(L) 0.8 - 3.3 K/cumm [facility] Monocyte abs 0.3 0.2 - 0.8 K/cumm [facility] Eosinophil abs 0.1 0.0 - 0.5 K/cumm [facility] Basophil abs 0.0 0.0 - 0.1 K/cumm [facility] Neutrophil pct 81.8 % [facility] Comment: Interpretive Data Percent cell count reference ranges are not reported, since discordance with absolute values may lead to misinterpretation of CBC data. Current Interpretive Data was last revised on 2017. Imm gran pct 0.8 % [facility] Comment: Interpretive Data Percent cell count reference ranges are not reported, since discordance with absolute values may lead to misinterpretation of CBC data. Current Interpretive Data was last revised on 2017. Lymphocyte pct 11.1 % [facility] Comment: Interpretive Data Percent cell count reference ranges are not reported, since discordance with absolute values may lead to misinterpretation of CBC data. Current Interpretive Data was last revised on 2017. Monocyte pct 5.3 % [facility] Comment: Interpretive Data Percent cell count reference ranges are not reported, since discordance with absolute values may lead to misinterpretation of CBC data. Current Interpretive Data was last revised on 2017. Eosinophil pct 0.8 % [facility] Comment: Interpretive Data Percent cell count reference ranges are not reported, since discordance with absolute values may lead to misinterpretation of CBC data. Current Interpretive Data was last revised on 2017. Basophil pct 0.2 % [facility] Comment: Interpretive Data Percent cell count reference ranges are not reported, since discordance with absolute values may lead to misinterpretation of CBC data. Current Interpretive Data was last revised on 2017. Blood 03/31/2024 7:41 AM RACE BOARD ATTENDANT 03/31/2024 7:54 AM RACE BOARD ATTENDANT us Ricki Mills MD LAB BLOOD ORDERABLES Final Result [facility] [address] [facility] [place] [address] * (ABNORMAL) CBC with auto differential (03/31/2024 7:41 AM RACE BOARD ATTENDANT) WBC 6.2 3.8 - 9.9 K/cumm Hgb 8.0(L) 13.0 - 17.5 g/dL [facility] Hct 24.9(L) 38.9 - 50.3 % [facility] Plt 168 150 - 400 K/cumm [facility] MPV 9.0(L) 9.1 - 12.3 fL [facility] RBC 3.00(L) 4.30 - 5.80 M/cumm [facility] MCV 83.0 81.3 - 96.4 fL [facility] MCH 26.7(L) 27.1 - 33.3 pg [facility] MCHC 32.1(L) 32.3 - 35.7 g/dL [facility] RDW CV 16.1(H) 11.1 - 14.9 % [facility] RDW SD 48.8(H) 35.7 - 48.1 fL [facility] NRBC abs 0.00 0.00 - 0.01 K/cumm [facility] Blood 03/31/2024 7:41 AM RACE BOARD ATTENDANT 03/31/2024 7:54 AM RACE BOARD ATTENDANT Ricki Mills MD LAB BLOOD ORDERABLES Final Result Performing Organization Address [facility] de Phone Number [address] [place] [address] * (ABNORMAL) aPTT (03/31/2024 7:41 AM RACE BOARD ATTENDANT) aPTT 40(H) 22 - 37 sec Comment: Ref Range High Interpretive data aPTT test has not been evaluated for monitoring heparin therapy. The anti-Xa is the preferred test. Current interpretive data was last revised on 2019. Blood 03/31/2024 7:41 AM RACE BOARD ATTENDANT 03/31/2024 7:54 AM RACE BOARD ATTENDANT Tiki Birch NP LAB BLOOD ORDERABLES Nita l Result Performing Organization Address [facility] de Phone Number [address] [place] [address] * (ABNORMAL) Protime-INR (03/31/2024 7:41 AM RACE BOARD ATTENDANT) PT 16.4(H) 12.0 - 14.6 sec Comment:Ref Range High INR 1.3(H) 0.9 - 1.2 [facility] Comment: Ref Range High Interpretive data Oral anticoagulant therapeutic ranges: Venous thromboembolism prophylaxis or treatment: 2.0-3.0 CARDIOLOGY Standard range: 2.0-3.0 High-intensity range: 2.5-3.5 Refer to indication-specific guidelines for appropriate target ranges for prosthetic heart valve replacement. Current interpretive data was last revised on 2019. Blood 03/31/2024 7:41 AM RACE BOARD ATTENDANT 03/31/2024 7:54 AM RACE BOARD ATTENDANT Tiki Birch SALES REPRESENTATIVE [employer] LAB BLOOD ORDERABLES Nita le Result Performing Organization Address [facility] de Phone Number [facility] [address] [place] [address] * (ABNORMAL) CBC without differential (03/31/2024 7:41 AM RACE BOARD ATTENDANT) Pathologist [facility] WBC 6.5 3.8 - 9.9 K/cumm Hgb 8.4(L) 13.0 - 17.5 g/dL [facility] Hct 25.8(L) 38.9 - 50.3 % [facility] Plt 181 150 - 400 K/cumm [facility] MPV 9.7 9.1 - 12.3 fL [facility] RBC 3.13(L) 4.30 - 5.80 M/cumm [facility] MCV 82.4 81.3 - 96.4 fL [facility] MCH 26.8(L) 27.1 - 33.3 pg [facility] MCHC 32.6 32.3 - 35.7 g/dL [facility] RDW CV 16.2(H) 11.1 - 14.9 % [facility] RDW SD 48.9(H) 35.7 - 48.1 fL [facility] NRBC abs 0.00 0.00 - 0.01 K/cumm [facility] Blood 03/31/2024 7:41 AM RACE BOARD ATTENDANT 03/31/2024 7:54 AM RACE BOARD ATTENDANT Tiki Birch SALES REPRESENTATIVE [employer] LAB BLOOD ORDERABLES Nita mimi Result Performing Organization Address [facility] Co de Phone Number [address] [place] [address] * Vancomycin level random (03/31/2024 7:41 AM RACE BOARD ATTENDANT) Pathologist [facility] Vancomycin random 17.1 mcg/mL Comment: Interpretive Data No reference ranges have been established for random drug levels. Current Interpretive Data was last revised on 2020. Blood 03/31/2024 7:41 AM RACE BOARD ATTENDANT 03/31/2024 7:54 AM RACE BOARD ATTENDANT Inocencia Fair MD LAB BLOOD ORDERABLES F inal Result Performing Organization Address [facility]/ZIP Co de Phone Number [address] [place] [address] * (ABNORMAL) Basic metabolic panel (03/31/2024 7:41 AM RACE BOARD ATTENDANT) Sodium 130(L) 135 - 145 mmol/L Potassium, pl 5.0(H) 3.3 - 4.9 mmol/L [facility] Chloride 90(L) 97 - 110 mmol/L [facility] CO2 26 22 - 32 mmol/L [facility] Anion gap 14 2 - 15 mmol/L [facility] BUN 39(H) 6 - 25 mg/dL [facility] Creatinine 7.60(H) 0.80 - 1.30 mg/dL [facility] Glucose 145 70 - 199 mg/dL [facility] Comment: Interpretive Data Fasting glucose >/= 126 [...] 2022. Calcium 8.8 8.5 - 10.3 mg/dL [facility] Blood 03/31/2024 7:41 AM RACE BOARD ATTENDANT 03/31/2024 7:54 AM RACE BOARD ATTENDANT Ricki Mills MD LAB BLOOD ORDERABLES Final Result Performing Organization Address [facility]/ZIP Co de Phone Number [address] [place] [address] * (ABNORMAL) eGFR (03/30/2024 7:07 AM RACE BOARD ATTENDANT) [facility] eGFR 11(L) >=60 mL/min/1. 73 m2 Comment: [...] last reviewed 2021. Blood 03/30/2024 7:07 AM RACE BOARD ATTENDANT 03/30/2024 7:26 AM RACE BOARD ATTENDANT us Ricki Mills MD LAB BLOOD ORDERABLES Final Result [facility] [address] [facility] [place] [address] * Differential, auto (03/30/2024 7:07 AM RACE BOARD ATTENDANT) [facility] Neutrophil abs 3.3 1.5 - 6.5 K/cumm Imm gran abs 0.1 0.0 - 0.1 K/cumm [facility] Lymphocyte abs 0.9 0.8 - 3.3 K/cumm [facility] Monocyte abs 0.3 0.2 - 0.8 K/cumm [facility] Eosinophil abs 0.1 0.0 - 0.5 K/cumm [facility] Basophil abs 0.0 0.0 - 0.1 K/cumm [facility] Neutrophil pct 70.6 % [facility] Comment: Interpretive Data Percent cell count reference ranges are not reported, since discordance with absolute values may lead to misinterpretation of CBC data. Current Interpretive Data was last revised on 2017. Imm gran pct 1.1 % [facility] Comment: Interpretive Data Percent cell count reference ranges are not reported, since discordance with absolute values may lead to misinterpretation of CBC data. Current Interpretive Data was last revised on 2017. Lymphocyte pct 19.1 % [facility] Comment: Interpretive Data Percent cell count reference ranges are not reported, since discordance with absolute values may lead to misinterpretation of CBC data. Current Interpretive Data was last revised on 2017. Monocyte pct 7.3 % [facility] Comment: Interpretive Data Percent cell count reference ranges are not reported, since discordance with absolute values may lead to misinterpretation of CBC data. Current Interpretive Data was last revised on 2017. Eosinophil pct 1.5 % [facility] Comment: Interpretive Data Percent cell count reference ranges are not reported, since discordance with absolute values may lead to misinterpretation of CBC data. Current Interpretive Data was last revised on 2017. Basophil pct 0.4 % [facility] Comment: Interpretive Data Percent cell count reference ranges are not reported, since discordance with absolute values may lead to misinterpretation of CBC data. Current Interpretive Data was last revised on 2017. Blood 03/30/2024 7:07 AM RACE BOARD ATTENDANT 03/30/2024 7:25 AM RACE BOARD ATTENDANT us Ricki Mills MD LAB BLOOD ORDERABLES Final Result [facility] [address] [facility] [place] [address] * (ABNORMAL) CBC with auto differential (03/30/2024 7:07 AM RACE BOARD ATTENDANT) WBC 4.7 3.8 - 9.9 K/cumm Hgb 8.8(L) 13.0 - 17.5 g/dL [facility] Hct 27.5(L) 38.9 - 50.3 % [facility] Plt 183 150 - 400 K/cumm [facility] MPV 9.2 9.1 - 12.3 fL [facility] RBC 3.31(L) 4.30 - 5.80 M/cumm [facility] MCV 83.1 81.3 - 96.4 fL [facility] MCH 26.6(L) 27.1 - 33.3 pg [facility] MCHC 32.0(L) 32.3 - 35.7 g/dL [facility] RDW CV 16.3(H) 11.1 - 14.9 % [facility] RDW SD 49.2(H) 35.7 - 48.1 fL [facility] NRBC abs 0.00 0.00 - 0.01 K/cumm [facility] Blood 03/30/2024 7:07 AM RACE BOARD ATTENDANT 03/30/2024 7:25 AM RACE BOARD ATTENDANT Ricki Mills MD LAB BLOOD ORDERABLES Final Result Performing Organization Address [facility]/ZIP Co de Phone Number [address] [employer] [address] * (ABNORMAL) Prealbumin (03/30/2024 7:07 AM RACE BOARD ATTENDANT) Prealbumin 13.0(L) 20.0 - 40.0 mg/dL Blood 03/30/2024 7:07 AM RACE BOARD ATTENDANT 03/30/2024 7:26 AM RACE BOARD ATTENDANT Inocenica Fair MD LAB BLOOD ORDERABLES F inal Result [address] [place] [address] * (ABNORMAL) Albumin (03/30/2024 7:07 AM RACE BOARD ATTENDANT) Albumin 3.4(L) 3.5 - 5.0 g/dL Blood 03/30/2024 7:07 AM RACE BOARD ATTENDANT 03/30/2024 7:26 AM RACE BOARD ATTENDANT Inocencia Fair MD LAB BLOOD ORDERABLES F inal Result Performing Organization Address [facility]/ZIP Co de Phone Number [address] [place] [address] * (ABNORMAL) Basic metabolic panel (03/30/2024 7:07 AM RACE BOARD ATTENDANT) Sodium 136 135 - 145 mmol/L Potassium, pl 4.4 3.3 - 4.9 mmol/L [facility] Chloride 95(L) 97 - 110 mmol/L [facility] CO2 30 22 - 32 mmol/L [facility] Anion gap 11 2 - 15 mmol/L [facility] BUN 28(H) 6 - 25 mg/dL [facility] Creatinine 6.04(H) 0.80 - 1.30 mg/dL [facility] Glucose 93 70 - 199 mg/dL [facility] Comment: Interpretive Data Fasting glucose >/= 126 [...] 2022. Calcium 8.8 8.5 - 10.3 mg/dL [facility] Blood 03/30/2024 7:07 AM RACE BOARD ATTENDANT 03/30/2024 7:26 AM RACE BOARD ATTENDANT us Ricki Mills MD LAB BLOOD ORDERABLES Final Result Performing Organization Address [facility]/ZIP Co de Phone Number [address] [place] [address] * Transfuse RBC (03/30/2024 12:50 AM RACE BOARD ATTENDANT) Blood us Inocencia Fair MD BLOOD TRANSFUSION [place] Final Result Performing Organization Address City/[facility]/ZIP Co de Phone Number [address] [address] * Prepare RBC: 1 Units (03/29/2024 4:28 PM RACE BOARD ATTENDANT) Units requested 1 Units requested Ready [facility] Unit Number [id number] Product code [id number] [facility] Blood Expiration Date [facility] Product Blood Type (for scanning) 9500 [facility] Product Blood Type ONEG [facility] Dispense Status DISPENSED [facility] Blood 03/29/2024 4:28 PM RACE BOARD ATTENDANT 03/29/2024 4:28 PM RACE BOARD ATTENDANT Inocencia Fair MD BLOOD BANK PRODUCT ORD ERABLES Final Result Performing Organization Address [facility] Co de Phone Number [address] [address] * ABO/Rh (03/29/2024 3:47 PM RACE BOARD ATTENDANT) Pathologist [facility] ABO/Rh O Negative Blood 03/29/2024 3:47 PM RACE BOARD ATTENDANT 03/29/2024 3:53 PM RACE BOARD ATTENDANT Narrative [facility] - 03/29/2024 4:28 PM RACE BOARD ATTENDANT Has the patient had Daratumumab or Isatuximab in the past 6 months?->Unknown us Inocencia Fair MD LAB BLOOD BANK TEST OR DERABLES Final Result [address] [address] * Crossmatch (03/29/2024 3:47 PM RACE BOARD ATTENDANT) Crossmatch Compatible [facility] Unit number for crossmatch [id number] [facility] Blood 03/29/2024 3:47 PM RACE BOARD ATTENDANT 03/29/2024 3:53 PM RACE BOARD ATTENDANT Inocencia Fair MD LAB BLOOD BANK TEST OR DERABLES Final Result Performing Organization Address [facility] Co de Phone Number [address] [address] * Antibody screen (03/29/2024 3:47 PM RACE BOARD ATTENDANT) Fermin, indirect, Gel Interpretation Negative ABSC Blood 03/29/2024 3:47 PM RACE BOARD ATTENDANT 03/29/2024 3:53 PM RACE BOARD ATTENDANT Narrative [facility] - 03/29/2024 4:28 PM RACE BOARD ATTENDANT Has the patient had Daratumumab or Isatuximab in the past 6 months?->Unknown Inocencia Fair MD LAB BLOOD BANK TEST OR DERABLES Final Result Performing Organization Address [facility] de Phone Number [address] [address] * (ABNORMAL) eGFR (03/29/2024 7:40 AM RACE BOARD ATTENDANT) [facility] eGFR 9(L) >=60 mL/min/1. 73 m2 Comment: [...] last reviewed 2021. Blood 03/29/2024 7:40 AM RACE BOARD ATTENDANT 03/29/2024 7:48 AM RACE BOARD ATTENDANT us Ricki Mills MD LAB BLOOD ORDERABLES Final Result JESSIE [address] [facility] [place] [address] * Differential, auto (03/29/2024 7:40 AM RACE BOARD ATTENDANT) Neutrophil abs 3.3 1.5 - 6.5 K/cumm Imm gran abs 0.1 0.0 - 0.1 K/cumm [facility] Lymphocyte abs 0.8 0.8 - 3.3 K/cumm [facility] Monocyte abs 0.4 0.2 - 0.8 K/cumm [facility] Eosinophil abs 0.1 0.0 - 0.5 K/cumm [facility] Basophil abs 0.0 0.0 - 0.1 K/cumm [facility] Neutrophil pct 71.6 % [facility] Comment: Interpretive Data Percent cell count reference ranges are not reported, since discordance with absolute values may lead to misinterpretation of CBC data. Current Interpretive Data was last revised on 2017. Imm gran pct 1.1 % [facility] Comment: Interpretive Data Percent cell count reference ranges are not reported, since discordance with absolute values may lead to misinterpretation of CBC data. Current Interpretive Data was last revised on 2017. Lymphocyte pct 18.0 % [facility] Comment: Interpretive Data Percent cell count reference ranges are not reported, since discordance with absolute values may lead to misinterpretation of CBC data. Current Interpretive Data was last revised on 2017. Monocyte pct 7.6 % [facility] Comment: Interpretive Data Percent cell count reference ranges are not reported, since discordance with absolute values may lead to misinterpretation of CBC data. Current Interpretive Data was last revised on 2017. Eosinophil pct 1.5 % [facility] Comment: Interpretive Data Percent cell count reference ranges are not reported, since discordance with absolute values may lead to misinterpretation of CBC data. Current Interpretive Data was last revised on 2017. Basophil pct 0.2 % [facility] Comment: Interpretive Data Percent cell count reference ranges are not reported, since discordance with absolute values may lead to misinterpretation of CBC data. Current Interpretive Data was last revised on 2017. Blood 03/29/2024 7:40 AM RACE BOARD ATTENDANT 03/29/2024 7:48 AM RACE BOARD ATTENDANT Ricki Mills MD LAB BLOOD ORDERABLES Final Result Performing Organization Address [facility] Co de Phone Number JESSIE [address] [address] * (ABNORMAL) CBC with auto differential (03/29/2024 7:40 AM RACE BOARD ATTENDANT) Pathologist [facility] WBC 4.6 3.8 - 9.9 K/cumm Hgb 7.6(L) 13.0 - 17.5 g/dL [facility] Hct 23.8(L) 38.9 - 50.3 % [facility] Plt 183 150 - 400 K/cumm [facility] MPV 9.4 9.1 - 12.3 fL [facility] RBC 2.87(L) 4.30 - 5.80 M/cumm [facility] MCV 82.9 81.3 - 96.4 fL [facility] MCH 26.5(L) 27.1 - 33.3 pg [facility] MCHC 31.9(L) 32.3 - 35.7 g/dL [facility] RDW CV 16.1(H) 11.1 - 14.9 % [facility] RDW SD 49.2(H) 35.7 - 48.1 fL [facility] NRBC abs 0.00 0.00 - 0.01 K/cumm [facility] Blood 03/29/2024 7:40 AM RACE BOARD ATTENDANT 03/29/2024 7:48 AM RACE BOARD ATTENDANT Ricki Mills MD LAB BLOOD ORDERABLES Final Result Performing Organization Address [facility] Co de Phone Number JESSIE [address] [address] * Vancomycin level random (03/29/2024 7:40 AM RACE BOARD ATTENDANT) Pathologist [facility] Vancomycin random 14.7 mcg/mL Comment: Interpretive Data No reference ranges have been established for random drug levels. Current Interpretive Data was last revised on 2020. Blood 03/29/2024 7:40 AM RACE BOARD ATTENDANT 03/29/2024 7:48 AM RACE BOARD ATTENDANT Luis Nieto MD LAB BLOOD ORDERABLES Final R esult Performing Organization Address [facility]/ZIP Co de Phone Number [address] [place] [employer] [place] [address] * (ABNORMAL) Basic metabolic panel (03/29/2024 7:40 AM RACE BOARD ATTENDANT) Sodium 133(L) 135 - 145 mmol/L Potassium, pl 4.7 3.3 - 4.9 mmol/L [facility] Chloride 92(L) 97 - 110 mmol/L [facility] CO2 28 22 - 32 mmol/L [facility] Anion gap 13 2 - 15 mmol/L [facility] BUN 36(H) 6 - 25 mg/dL [facility] Creatinine 7.25(H) 0.80 - 1.30 mg/dL [facility] Glucose 101 70 - 199 mg/dL [facility] Comment: Interpretive Data Fasting glucose >/= 126 [...] 2022. Calcium 8.4(L) 8.5 - 10.3 mg/dL [facility] Blood 03/29/2024 7:40 AM RACE BOARD ATTENDANT 03/29/2024 7:48 AM RACE BOARD ATTENDANT us Ricki Mills MD LAB BLOOD ORDERABLES Final Result Performing Organization Address [facility]/ZIP Co de Phone Number [address] [place] [address] * (ABNORMAL) eGFR (03/28/2024 7:00 AM RACE BOARD ATTENDANT) [facility] eGFR 7(L) >=60 mL/min/1. 73 m2 Comment: [...] last reviewed 2021. Blood 03/28/2024 7:00 AM RACE BOARD ATTENDANT 03/28/2024 7:10 AM RACE BOARD ATTENDANT us Ricki Mills MD LAB BLOOD ORDERABLES Final Result [facility] [address] [facility] Department [place] [address] * Differential, auto (03/28/2024 7:00 AM RACE BOARD ATTENDANT) [facility] Neutrophil abs 3.5 1.5 - 6.5 K/cumm Imm gran abs 0.0 0.0 - 0.1 K/cumm [facility] Lymphocyte abs 0.8 0.8 - 3.3 K/cumm [facility] Monocyte abs 0.4 0.2 - 0.8 K/cumm [facility] Eosinophil abs 0.1 0.0 - 0.5 K/cumm [facility] Basophil abs 0.0 0.0 - 0.1 K/cumm [facility] Neutrophil pct 72.5 % [facility] Comment: Interpretive Data Percent cell count reference ranges are not reported, since discordance with absolute values may lead to misinterpretation of CBC data. Current Interpretive Data was last revised on 2017. Imm gran pct 0.6 % [facility] Comment: Interpretive Data Percent cell count reference ranges are not reported, since discordance with absolute values may lead to misinterpretation of CBC data. Current Interpretive Data was last revised on 2017. Lymphocyte pct 15.7 % [facility] Comment: Interpretive Data Percent cell count reference ranges are not reported, since discordance with absolute values may lead to misinterpretation of CBC data. Current Interpretive Data was last revised on 2017. Monocyte pct 9.1 % [facility] Comment: Interpretive Data Percent cell count reference ranges are not reported, since discordance with absolute values may lead to misinterpretation of CBC data. Current Interpretive Data was last revised on 2017. Eosinophil pct 2.1 % [facility] Comment: Interpretive Data Percent cell count reference ranges are not reported, since discordance with absolute values may lead to misinterpretation of CBC data. Current Interpretive Data was last revised on 2017. Basophil pct 0.0 % [facility] Comment: Interpretive Data Percent cell count reference ranges are not reported, since discordance with absolute values may lead to misinterpretation of CBC data. Current Interpretive Data was last revised on 2017. Blood 03/28/2024 7:00 AM RACE BOARD ATTENDANT 03/28/2024 7:10 AM RACE BOARD ATTENDANT us Ricki Mills MD LAB BLOOD ORDERABLES Final Result [facility] [address] [facility] Department of Laboratories [place], [place] [id number] * (ABNORMAL) CBC with auto differential (03/28/2024 7:00 AM RACE BOARD ATTENDANT) WBC 4.9 3.8 - 9.9 K/cumm Hgb 7.7(L) 13.0 - 17.5 g/dL [facility] Hct 23.9(L) 38.9 - 50.3 % [facility] Plt 181 150 - 400 K/cumm [facility] MPV 9.3 9.1 - 12.3 fL [facility] RBC 2.93(L) 4.30 - 5.80 M/cumm [facility] MCV 81.6 81.3 - 96.4 fL [facility] MCH 26.3(L) 27.1 - 33.3 pg [facility] MCHC 32.2(L) 32.3 - 35.7 g/dL [facility] RDW CV 16.1(H) 11.1 - 14.9 % [facility] RDW SD 48.2(H) 35.7 - 48.1 fL [facility] NRBC abs 0.00 0.00 - 0.01 K/cumm [facility] Blood 03/28/2024 7:00 AM RACE BOARD ATTENDANT 03/28/2024 7:10 AM RACE BOARD ATTENDANT us Ricki Mills MD LAB BLOOD ORDERABLES Final Result Performing Organization Address [facility] Co de Phone Number [address] [employer] [address] * Vancomycin level random (03/28/2024 7:00 AM RACE BOARD ATTENDANT) Pathologist [facility] Vancomycin random 16.3 mcg/mL Comment: Interpretive Data No reference ranges have been established for random drug levels. Current Interpretive Data was last revised on 2020. Blood 03/28/2024 7:00 AM RACE BOARD ATTENDANT 03/28/2024 7:10 AM RACE BOARD ATTENDANT Narrative [facility] - 03/28/2024 7:46 AM RACE BOARD ATTENDANT Prior to HD us Luis Nieto MD LAB BLOOD ORDERABLES Final R esult Performing Organization Address [facility] Co de Phone Number [address] [employer] [address] * (ABNORMAL) Basic metabolic panel (03/28/2024 7:00 AM RACE BOARD ATTENDANT) Sodium 131(L) 135 - 145 mmol/L Potassium, pl 4.9 3.3 - 4.9 mmol/L [facility] Chloride 89(L) 97 - 110 mmol/L [facility] CO2 27 22 - 32 mmol/L [facility] Anion gap 15 2 - 15 mmol/L [facility] BUN 50(H) 6 - 25 mg/dL [facility] Creatinine 9.17(H) 0.80 - 1.30 mg/dL [facility] Glucose 187 70 - 199 mg/dL [facility] Comment: Interpretive Data Fasting glucose >/= 126 [...] 2022. Calcium 8.0(L) 8.5 - 10.3 mg/dL [facility] Blood 03/28/2024 7:00 AM RACE BOARD ATTENDANT 03/28/2024 7:10 AM RACE BOARD ATTENDANT Ricki Mills MD LAB BLOOD ORDERABLES Final Result Performing Organization Address [facility] Co de Phone Number [address] [employer] [place], [place] [id number] * Transfuse RBC (03/27/2024 6:48 PM RACE BOARD ATTENDANT) Blood Inocencia Fair MD BLOOD TRANSFUSION [place] Final Result Performing Organization Address [facility] Co de Phone Number [address] [employer] [address] * Prepare RBC: 1 Units (03/27/2024 1:26 PM RACE BOARD ATTENDANT) Units requested 1 Units requested Ready [facility] Unit Number [id number] Product code [id number] [facility] Blood Expiration Date [id number] [facility] Product Blood Type (for scanning) [address]00 [facility] Product Blood Type ONEG [facility] Dispense Status DISPENSED [facility] Blood 03/27/2024 1:26 PM RACE BOARD ATTENDANT 03/27/2024 1:26 PM RACE BOARD ATTENDANT Inocencia Fair MD BLOOD BANK PRODUCT ORD ERABLES Final Result Performing Organization Address [facility] Co de Phone Number [address] [place] [address] * (ABNORMAL) eGFR (03/27/2024 12:18 PM RACE BOARD ATTENDANT) eGFR 8(L) >=60 mL/min/1. 73 m2 Comment: [...] reviewed 2021. Blood 03/27/2024 12:1 8 PM RACE BOARD ATTENDANT 03/27/2024 12:25 PM RACE BOARD ATTENDANT us Ricki Mills MD LAB BLOOD ORDERABLES Final Result Performing Organization Address [facility] Co de Phone Number [address] [place] [address] * Differential, auto (03/27/2024 12:18 PM RACE BOARD ATTENDANT) Neutrophil abs 4.3 1.5 - 6.5 K/cumm Imm gran abs 0.0 0.0 - 0.1 K/cumm [facility] Lymphocyte abs 0.8 0.8 - 3.3 K/cumm [facility] Monocyte abs 0.4 0.2 - 0.8 K/cumm [facility] Eosinophil abs 0.1 0.0 - 0.5 K/cumm [facility] Basophil abs 0.0 0.0 - 0.1 K/cumm [facility] Neutrophil pct 76.6 % [facility] Comment: Interpretive Data Percent cell count reference ranges are not reported, since discordance with absolute values may lead to misinterpretation of CBC data. Current Interpretive Data was last revised on 2017. Imm gran pct 0.4 % [facility] Comment: Interpretive Data Percent cell count reference ranges are not reported, since discordance with absolute values may lead to misinterpretation of CBC data. Current Interpretive Data was last revised on 2017. Lymphocyte pct 14.2 % [facility] Comment: Interpretive Data Percent cell count reference ranges are not reported, since discordance with absolute values may lead to misinterpretation of CBC data. Current Interpretive Data was last revised on 2017. Monocyte pct 7.2 % [facility] Comment: Interpretive Data Percent cell count reference ranges are not reported, since discordance with absolute values may lead to misinterpretation of CBC data. Current Interpretive Data was last revised on 2017. Eosinophil pct 1.4 % [facility] Comment: Interpretive Data Percent cell count reference ranges are not reported, since discordance with absolute values may lead to misinterpretation of CBC data. Current Interpretive Data was last revised on 2017. Basophil pct 0.2 % [facility] Comment: Interpretive Data Percent cell count reference ranges are not reported, since discordance with absolute values may lead to misinterpretation of CBC data. Current Interpretive Data was last revised on 2017. Blood 03/27/2024 12:1 8 PM RACE BOARD ATTENDANT 03/27/2024 12:25 PM RACE BOARD ATTENDANT us Ricki Mills MD LAB BLOOD ORDERABLES Final Result JESSIE [address] [facility] [place] [address] * (ABNORMAL) CBC with auto differential (03/27/2024 12:18 PM RACE BOARD ATTENDANT) [facility] WBC 5.6 3.8 - 9.9 K/cumm Hgb 7.3(L) 13.0 - 17.5 g/dL [facility] Hct 23.1(L) 38.9 - 50.3 % [facility] Plt 191 150 - 400 K/cumm [facility] MPV 9.2 9.1 - 12.3 fL [facility] RBC 2.82(L) 4.30 - 5.80 M/cumm [facility] MCV 81.9 81.3 - 96.4 fL [facility] MCH 25.9(L) 27.1 - 33.3 pg [facility] MCHC 31.6(L) 32.3 - 35.7 g/dL [facility] RDW CV 16.6(H) 11.1 - 14.9 % [facility] RDW SD 49.9(H) 35.7 - 48.1 fL [facility] NRBC abs 0.00 0.00 - 0.01 K/cumm [facility] Blood 03/27/2024 12:1 8 PM RACE BOARD ATTENDANT 03/27/2024 12:25 PM RACE BOARD ATTENDANT Ricki Mills MD LAB BLOOD ORDERABLES Final Result [place] [address] [facility] Department [place] [address] * Blood culture Blood (03/27/2024 12:18 PM RACE BOARD ATTENDANT) [facility] Report Final Report: No growth Comment:Testing performed by : [facility], [address] [facility], [place]., [address] Blood 03/27/2024 12:1 8 PM RACE BOARD ATTENDANT 03/27/2024 3:04 PM RACE BOARD ATTENDANT Narrative [facility] - 03/31/2024 4:00 PM RACE BOARD ATTENDANT From a different site than #1. Collection->Peripheral [...] performance characteristics have been verified by the [facility] Microbiology Laboratory. For questions about this culture, contact the Microbiology Laboratory at [phone]. Interpretive data was last revised on 23. Luis Nieto MD LAB MICROBIOLOGY - GENERAL O RDERABLES Final Result [facility] [address] [facility] Department [place] [address] * (ABNORMAL) Basic metabolic panel (03/27/2024 12:18 PM RACE BOARD ATTENDANT) Sodium 131(L) 135 - 145 mmol/L Potassium, pl 4.6 3.3 - 4.9 mmol/L [facility] Chloride 90(L) 97 - 110 mmol/L [facility] CO2 28 22 - 32 mmol/L [facility] Anion gap 13 2 - 15 mmol/L [facility] BUN 42(H) 6 - 25 mg/dL [facility] Creatinine 7.55(H) 0.80 - 1.30 mg/dL [facility] Glucose 177 70 - 199 mg/dL [facility] Comment: Interpretive Data Fasting glucose >/= 126 [...] [place] Blood 03/27/2024 12:1 8 PM RACE BOARD ATTENDANT 03/27/2024 12:25 PM RACE BOARD ATTENDANT us Ricki Mills MD LAB BLOOD ORDERABLES Final Result JESSIE [address] [facility] [place] [address] * Blood culture Blood (03/26/2024 11:23 AM RACE BOARD ATTENDANT) Report Final Report: No growth Comment:Testing performed by : [facility], [address] [place]., [address] Blood 03/26/2024 11:2 3 AM RACE BOARD ATTENDANT 03/26/2024 1:31 PM RACE BOARD ATTENDANT Narrative JESSIE - 03/30/2024 4:00 PM RACE BOARD ATTENDANT Collection->Peripheral 1. Blood cultures are incubated for [...] performance characteristics have been verified by the [facility] Microbiology Laboratory. For questions about this culture, contact the Microbiology Laboratory at [phone]. Interpretive data was last revised on 23. us Luis Nieto MD LAB MICROBIOLOGY - GENERAL O RDERABLES Final Result Performing Organization Address City/[facility]/ZIP Co de Phone Number JESSIE [address] [address] * (ABNORMAL) eGFR (03/26/2024 5:05 AM RACE BOARD ATTENDANT) eGFR 7(L) >=60 mL/min/1. 73 m2 Comment: [...] last reviewed 2021. Blood 03/26/2024 5:05 AM RACE BOARD ATTENDANT 03/26/2024 5:18 AM RACE BOARD ATTENDANT us Ricki Mills MD LAB BLOOD ORDERABLES Final Result Performing Organization Address City/[facility]/ZIP Co de Phone Number JESSIE [address] [address] * Differential, auto (03/26/2024 5:05 AM RACE BOARD ATTENDANT) Neutrophil abs 5.0 1.5 - 6.5 K/cumm Imm gran abs 0.0 0.0 - 0.1 K/cumm [facility] Lymphocyte abs 1.0 0.8 - 3.3 K/cumm [facility] Monocyte abs 0.6 0.2 - 0.8 K/cumm [facility] Eosinophil abs 0.0 0.0 - 0.5 K/cumm [facility] Basophil abs 0.0 0.0 - 0.1 K/cumm [facility] Neutrophil pct 74.7 % [facility] Comment: Interpretive Data Percent cell count reference ranges are not reported, since discordance with absolute values may lead to misinterpretation of CBC data. Current Interpretive Data was last revised on 2017. Imm gran pct 0.6 % [facility] Comment: Interpretive Data Percent cell count reference ranges are not reported, since discordance with absolute values may lead to misinterpretation of CBC data. Current Interpretive Data was last revised on 2017. Lymphocyte pct 14.8 % [facility] Comment: Interpretive Data Percent cell count reference ranges are not reported, since discordance with absolute values may lead to misinterpretation of CBC data. Current Interpretive Data was last revised on 2017. Monocyte pct 9.0 % [facility] Comment: Interpretive Data Percent cell count reference ranges are not reported, since discordance with absolute values may lead to misinterpretation of CBC data. Current Interpretive Data was last revised on 2017. Eosinophil pct 0.6 % [facility] Comment: Interpretive Data Percent cell count reference ranges are not reported, since discordance with absolute values may lead to misinterpretation of CBC data. Current Interpretive Data was last revised on 2017. Basophil pct 0.3 % [facility] Comment: Interpretive Data Percent cell count reference ranges are not reported, since discordance with absolute values may lead to misinterpretation of CBC data. Current Interpretive Data was last revised on 2017. Blood 03/26/2024 5:05 AM RACE BOARD ATTENDANT 03/26/2024 5:18 AM RACE BOARD ATTENDANT us Ricki Mills MD LAB BLOOD ORDERABLES Final Result J[place] [address] [facility] [place] [address] * (ABNORMAL) CBC with auto differential (03/26/2024 5:05 AM RACE BOARD ATTENDANT) [facility] WBC 6.7 3.8 - 9.9 K/cumm Hgb 7.7(L) 13.0 - 17.5 g/dL [facility] Hct 23.9(L) 38.9 - 50.3 % [facility] Plt 183 150 - 400 K/cumm [facility] MPV 9.4 9.1 - 12.3 fL [facility] RBC 2.90(L) 4.30 - 5.80 M/cumm [facility] MCV 82.4 81.3 - 96.4 fL [facility] MCH 26.6(L) 27.1 - 33.3 pg [facility] MCHC 32.2(L) 32.3 - 35.7 g/dL [facility] RDW CV 16.3(H) 11.1 - 14.9 % [facility] RDW SD 50.1(H) 35.7 - 48.1 fL [facility] NRBC abs 0.00 0.00 - 0.01 K/cumm [facility] Blood 03/26/2024 5:05 AM RACE BOARD ATTENDANT 03/26/2024 5:18 AM RACE BOARD ATTENDANT Ricki Mills MD LAB BLOOD ORDERABLES Final Result Performing Organization Address City/[facility] Co de Phone Number [address] [employer] [address] * ABO/Rh (03/26/2024 5:05 AM RACE BOARD ATTENDANT) [facility] ABO/Rh O Negative Blood 03/26/2024 5:05 AM RACE BOARD ATTENDANT 03/26/2024 5:17 AM RACE BOARD ATTENDANT Narrative [facility] - 03/26/2024 5:53 AM RACE BOARD ATTENDANT Has the patient had Daratumumab or Isatuximab in the past 6 months?->Unknown us Anjali Kline NP LAB BLOOD BANK TEST ORDERABLES Final Result [address] [place] [address] * Crossmatch (03/26/2024 5:05 AM RACE BOARD ATTENDANT) Pathologist [facility] Crossmatch Compatible [facility] Unit number for crossmatch [id number] [facility] Blood 03/26/2024 5:05 AM RACE BOARD ATTENDANT 03/26/2024 5:17 AM RACE BOARD ATTENDANT Inocencia Fair MD LAB BLOOD BANK TEST OR DERABLES Final Result Performing Organization Address [facility] Co de Phone Number [address] [address] * Antibody screen (03/26/2024 5:05 AM RACE BOARD ATTENDANT) Pathologist [facility] [place], indirect, Gel Interpretation Negative ABSC Blood 03/26/2024 5:05 AM RACE BOARD ATTENDANT 03/26/2024 5:17 AM RACE BOARD ATTENDANT Narrative [facility] - 03/26/2024 5:53 AM RACE BOARD ATTENDANT Has the patient had Daratumumab or Isatuximab in the past 6 months?->Unknown Anjali Kline NP LAB BLOOD BANK TEST ORDERABLES Final Result Performing Organization Address [facility] de Phone Number [address] [address] * Vancomycin level random (03/26/2024 5:05 AM RACE BOARD ATTENDANT) [facility] Vancomycin random 15.6 mcg/mL Comment: Interpretive Data No reference ranges have been established for random drug levels. Current Interpretive Data was last revised on 2020. Blood 03/26/2024 5:05 AM RACE BOARD ATTENDANT 03/26/2024 9:48 AM RACE BOARD ATTENDANT Inocencia Fair MD LAB BLOOD ORDERABLES F inal Result Performing Organization Address [facility] Co de Phone Number [address] [place] [address] * (ABNORMAL) Basic metabolic panel (03/26/2024 5:05 AM RACE BOARD ATTENDANT) Sodium 130(L) 135 - 145 mmol/L Potassium, pl 5.0(H) 3.3 - 4.9 mmol/L [facility] Chloride 90(L) 97 - 110 mmol/L [facility] CO2 24 22 - 32 mmol/L [facility] Anion gap 16(H) 2 - 15 mmol/L [facility] BUN 53(H) 6 - 25 mg/dL [facility] Creatinine 9.19(H) 0.80 - 1.30 mg/dL [facility] Glucose 185 70 - 199 mg/dL [facility] Comment: Interpretive Data Fasting glucose >/= 126 [...] 2022. Calcium 8.7 8.5 - 10.3 mg/dL [facility] Blood 03/26/2024 5:05 AM RACE BOARD ATTENDANT 03/26/2024 5:18 AM RACE BOARD ATTENDANT us Ricki Mills MD LAB BLOOD ORDERABLES Final Result [facility] [address] [facility] [place] [address] * POCT glucose (03/25/2024 5:20 PM RACE BOARD ATTENDANT) Pathologist [facility] Glucose, POC 189 70 - 199 mg/dL Glucose comment 1 RN/ Notified [facility] Blood 03/25/2024 5:20 PM RACE BOARD ATTENDANT 03/25/2024 5:20 PM RACE BOARD ATTENDANT us Inocencia Fair MD LAB POCT ORDERABLES - DEVICE Final Result Performing Organization Address [facility] de Phone Number [address] [place] [address] * POCT glucose (03/25/2024 12:18 PM RACE BOARD ATTENDANT) Glucose, POC 127 70 - 199 mg/dL Glucose comment 1 RN/MD Notified [facility] Blood 03/25/2024 12:1 8 PM RACE BOARD ATTENDANT 03/25/2024 12:18 PM RACE BOARD ATTENDANT Inocencia Fair MD LAB POCT ORDERABLES - DEVICE Final Result Performing Organization Address [facility] de Phone Number [address] [address] * POCT glucose (03/25/2024 10:34 AM RACE BOARD ATTENDANT) Glucose, POC 151 70 - 199 mg/dL Glucose comment 1 RN/MD Notified [facility] Blood 03/25/2024 10:3 4 AM RACE BOARD ATTENDANT 03/25/2024 10:34 AM RACE BOARD ATTENDANT us Inocencia Fair MD LAB POCT ORDERABLES - DEVICE Final Result Performing Organization Address [facility] de Phone Number [address] [address] * ANGIOGRAPHY UNILATERAL EXTREMITY S&I [id number], ATHERECTOMY - PERIPHERAL (03/25/2024 9:37 AM RACE BOARD ATTENDANT) Anatomical Region Laterality Modality X-Ray Angiograph y Narrative 03/25/2024 9:38 AM RACE BOARD ATTENDANT Please see OpNote for result. us Anjali Kline SALES REPRESENTATIVE JEWELRY CV CARDIAC CATH PROCEDURES Nita l Result * (ABNORMAL) POCT glucose (03/24/2024 8:10 PM RACE BOARD ATTENDANT) Glucose, POC 242(H) 70 - 199 mg/dL Blood 03/24/2024 8:10 PM RACE BOARD ATTENDANT 03/24/2024 8:10 PM RACE BOARD ATTENDANT Tony Mari MD LAB POCT ORDERABLES - DEVICE Final Result Performing Organization Address [facility] Co de Phone Number JESSIE [address] [address] * POCT glucose (03/24/2024 4:57 PM RACE BOARD ATTENDANT) Glucose, POC 148 70 - 199 mg/dL Blood 03/24/2024 4:57 PM RACE BOARD ATTENDANT 03/24/2024 4:57 PM RACE BOARD ATTENDANT Tony Mari MD LAB POCT ORDERABLES - DEVICE Final Result Performing Organization Address [facility] de Phone Number JESSIE [address] [address] * MRI Foot Right WO Contrast (03/24/2024 3:20 PM RACE BOARD ATTENDANT) Anatomical Region Laterality Modality Lower Extremities Right Magnetic Reson ance 03/24/2024 3:59 PM RACE BOARD ATTENDANT Narrative 03/24/2024 4:12 PM RACE BOARD ATTENDANT EXAM DESCRIPTION: MRI FOOT RIGHT WO CONTRAST [...] signed by Ananda MARMOLEJO T: Report ID: [id number] Reading Location: [place] [address] Procedure Note Ananda Mike MD - 03/24/2024 [...] signed by Ananda MARMOLEJO T: Report ID: [id number] Reading Location: [place] [address] Carmen Graham MD IMG MRI PROCEDU RES Final Result * POCT glucose (03/24/2024 12:35 PM RACE BOARD ATTENDANT) Glucose, POC 132 70 - 199 mg/dL Blood 03/24/2024 12:3 5 PM RACE BOARD ATTENDANT 03/24/2024 12:35 PM RACE BOARD ATTENDANT Tony Mari MD LAB POCT ORDERABLES - DEVICE Final Result Performing Organization Address [facility] Co de Phone Number JESSIE [address] [place] [address] * (ABNORMAL) eGFR (03/24/2024 5:20 AM RACE BOARD ATTENDANT) Pathologist [facility] eGFR 7(L) >=60 mL/min/1. 73 m2 Comment: [...] last reviewed 2021. Blood 03/24/2024 5:20 AM RACE BOARD ATTENDANT 03/24/2024 5:31 AM RACE BOARD ATTENDANT Carmen Graham MD LAB BLOOD ORDER THEODORE Final Result Performing Organization Address [facility]/ZIP Co de Phone Number [address] [place] [address] * Differential, auto (03/24/2024 5:20 AM RACE BOARD ATTENDANT) Pathologist [facility] Neutrophil abs 5.2 1.5 - 6.5 K/cumm Imm gran abs 0.0 0.0 - 0.1 K/cumm [facility] Lymphocyte abs 0.8 0.8 - 3.3 K/cumm [facility] Monocyte abs 0.5 0.2 - 0.8 K/cumm [facility] Eosinophil abs 0.0 0.0 - 0.5 K/cumm [facility] Basophil abs 0.0 0.0 - 0.1 K/cumm [facility] Neutrophil pct 80.2 % [facility] Comment: Interpretive Data Percent cell count reference ranges are not reported, since discordance with absolute values may lead to misinterpretation of CBC data. Current Interpretive Data was last revised on 2017. Imm gran pct 0.5 % [facility] Comment: Interpretive Data Percent cell count reference ranges are not reported, since discordance with absolute values may lead to misinterpretation of CBC data. Current Interpretive Data was last revised on 2017. Lymphocyte pct 11.8 % [facility] Comment: Interpretive Data Percent cell count reference ranges are not reported, since discordance with absolute values may lead to misinterpretation of CBC data. Current Interpretive Data was last revised on 2017. Monocyte pct 7.0 % [facility] Comment: Interpretive Data Percent cell count reference ranges are not reported, since discordance with absolute values may lead to misinterpretation of CBC data. Current Interpretive Data was last revised on 2017. Eosinophil pct 0.3 % [facility] Comment: Interpretive Data Percent cell count reference ranges are not reported, since discordance with absolute values may lead to misinterpretation of CBC data. Current Interpretive Data was last revised on 2017. Basophil pct 0.2 % [facility] Comment: Interpretive Data Percent cell count reference ranges are not reported, since discordance with absolute values may lead to misinterpretation of CBC data. Current Interpretive Data was last revised on 2017. Blood 03/24/2024 5:20 AM RACE BOARD ATTENDANT 03/24/2024 5:31 AM RACE BOARD ATTENDANT us Tony Mari MD LAB BLOOD ORDERABLES Final Result JESSIE [address] [facility] Department [place] [address] * (ABNORMAL) CBC with auto differential (03/24/2024 5:20 AM RACE BOARD ATTENDANT) [facility] WBC 6.5 3.8 - 9.9 K/cumm Hgb 7.6(L) 13.0 - 17.5 g/dL [facility] Hct 22.9(L) 38.9 - 50.3 % [facility] Plt 176 150 - 400 K/cumm [facility] MPV 10.0 9.1 - 12.3 fL [facility] RBC 2.79(L) 4.30 - 5.80 M/cumm [facility] MCV 82.1 81.3 - 96.4 fL [facility] MCH 27.2 27.1 - 33.3 pg [facility] MCHC 33.2 32.3 - 35.7 g/dL [facility] RDW CV 15.9(H) 11.1 - 14.9 % [facility] RDW SD 48.1 35.7 - 48.1 fL [facility] NRBC abs 0.00 0.00 - 0.01 K/cumm [facility] Blood 03/24/2024 5:20 AM RACE BOARD ATTENDANT 03/24/2024 5:31 AM RACE BOARD ATTENDANT us Ricki Mills MD LAB BLOOD ORDERABLES Final Result Performing Organization Address City/[facility] Co de Phone Number [address] [employer] [address] * Vancomycin level random (03/24/2024 5:20 AM RACE BOARD ATTENDANT) [facility] Vancomycin random 17.0 mcg/mL Comment: Interpretive Data No reference ranges have been established for random drug levels. Current Interpretive Data was last revised on 2020. Blood 03/24/2024 5:20 AM RACE BOARD ATTENDANT 03/24/2024 5:31 AM RACE BOARD ATTENDANT us Tony Mari MD LAB BLOOD ORDERABLES Final Result Performing Organization Address City/[facility] Co de Phone Number [address] [place] [address] * (ABNORMAL) Basic metabolic panel (03/24/2024 5:20 AM RACE BOARD ATTENDANT) Sodium 129(L) 135 - 145 mmol/L Potassium, pl 5.1(H) 3.3 - 4.9 mmol/L [facility] Chloride 89(L) 97 - 110 mmol/L [facility] CO2 26 22 - 32 mmol/L [facility] Anion gap 14 2 - 15 mmol/L [facility] BUN 58(H) 6 - 25 mg/dL [facility] Creatinine 8.42(H) 0.80 - 1.30 mg/dL [facility] Glucose 211(H) 70 - 199 mg/dL [facility] Comment: Interpretive Data Fasting glucose >/= 126 [...] 2022. Calcium 7.8(L) 8.5 - 10.3 mg/dL [facility] Blood 03/24/2024 5:20 AM RACE BOARD ATTENDANT 03/24/2024 5:31 AM RACE BOARD ATTENDANT us Ricki Mills MD LAB BLOOD ORDERABLES Final Result Performing Organization Address City/[facility]/ZIP Co de Phone Number [facility] [address] [facility] Department [place] [address] * POCT glucose (03/24/2024 4:58 AM RACE BOARD ATTENDANT) Pathologist [facility] Glucose, POC 196 70 - 199 mg/dL Blood 03/24/2024 4:58 AM RACE BOARD ATTENDANT 03/24/2024 4:58 AM RACE BOARD ATTENDANT us Tony Mari MD LAB POCT ORDERABLES - DEVICE Final Result Performing Organization Address City/[facility]/ZIP Co de Phone Number JESSIE [address] [address] * Transfuse RBC (03/23/2024 8:13 PM RACE BOARD ATTENDANT) Blood Tony Mari MD BLOOD TRANSFUSION ORD ERABLES Final Result Performing Organization Address [facility]/ZIP Co de Phone Number JESSIE [address] [address] * (ABNORMAL) POCT glucose (03/23/2024 8:08 PM RACE BOARD ATTENDANT) Glucose, POC 292(H) 70 - 199 mg/dL Blood 03/23/2024 8:08 PM RACE BOARD ATTENDANT 03/23/2024 8:08 PM RACE BOARD ATTENDANT Tony Mari MD LAB POCT ORDERABLES - DEVICE Final Result Performing Organization Address [facility] Co de Phone Number [address] [address] * (ABNORMAL) POCT glucose (03/23/2024 5:17 PM RACE BOARD ATTENDANT) Glucose, POC 325(H) 70 - 199 mg/dL Glucose comment 1 RN/MD Notified JESSIE Blood 03/23/2024 5:17 PM RACE BOARD ATTENDANT 03/23/2024 5:17 PM RACE BOARD ATTENDANT Tony Mari MD LAB POCT ORDERABLES - DEVICE Final Result Performing Organization Address [facility] Co de Phone Number [address] [address] * Prepare RBC: 1 Units (03/23/2024 1:54 PM RACE BOARD ATTENDANT) Units requested 1 Units requested Ready JESSIE Unit Number [id number] Product code [id number] JESSIE Blood Expiration Date [id number] [facility] Product Blood Type (for scanning) [address] [facility] Product Blood Type ONEG [facility] Dispense Status DISPENSED [facility] Blood 03/23/2024 1:54 PM RACE BOARD ATTENDANT 03/23/2024 1:54 PM RACE BOARD ATTENDANT Tony Mari MD BLOOD BANK PRODUCT OR DERABLES Final Result Performing Organization Address City/[facility]/ZIP Co de Phone Number [address] [place] [address] * ABO / Rh Confirmation Testing (03/23/2024 12:40 PM RACE BOARD ATTENDANT) ABO/Rh Confirmation O Negative [facility] Blood 03/23/2024 12:4 0 PM RACE BOARD ATTENDANT 03/23/2024 12:45 PM RACE BOARD ATTENDANT Tony Mari MD LAB BLOOD ORDERABLES Final Result Performing Organization Address [facility] Co de Phone Number [address] [place] [address] [facility] * ABO/Rh (03/23/2024 11:41 AM RACE BOARD ATTENDANT) ABO/Rh O Negative Blood 03/23/2024 11:4 1 AM RACE BOARD ATTENDANT 03/23/2024 12:10 PM RACE BOARD ATTENDANT Narrative [facility] - 03/23/2024 1:38 PM RACE BOARD ATTENDANT Has the patient had Daratumumab or Isatuximab in the past 6 months?->Unknown Tony Mari MD LAB BLOOD BANK TEST O RDERABLES Final Result Performing Organization Address City/[facility]/ZIP Co de Phone Number [address] [place] [address] * Crossmatch (03/23/2024 11:41 AM RACE BOARD ATTENDANT) Crossmatch Compatible [facility] Unit number for crossmatch [id number] [facility] Blood 03/23/2024 11:4 1 AM RACE BOARD ATTENDANT 03/23/2024 12:10 PM RACE BOARD ATTENDANT Result [facility] Tony Mari MD LAB BLOOD BANK TEST O RDERABLES Final Result Performing Organization Address [facility] de Phone Number [address] [address] * Antibody screen (03/23/2024 11:41 AM RACE BOARD ATTENDANT) [facility] Fermin, indirect, Gel Interpretation Negative [facility] Blood 03/23/2024 11:4 1 AM RACE BOARD ATTENDANT 03/23/2024 12:10 PM RACE BOARD ATTENDANT Narrative [facility] - 03/23/2024 1:38 PM RACE BOARD ATTENDANT Has the patient had Daratumumab or Isatuximab in the past 6 months?->Unknown Result [facility] Tony Mari MD LAB BLOOD BANK TEST O RDERABLES Final Result Performing Organization Address [facility] de Phone Number [address] [place] [address] * POCT glucose (03/23/2024 8:15 AM RACE BOARD ATTENDANT) [facility] Glucose, POC 147 70 - 199 mg/dL Blood 03/23/2024 8:15 AM RACE BOARD ATTENDANT 03/23/2024 8:15 AM RACE BOARD ATTENDANT Result [facility] Tony Mari MD LAB POCT ORDERABLES - DEVICE Final Result Performing Organization Address [facility] Co de Phone Number [address] [address] * (ABNORMAL) eGFR (03/23/2024 6:15 AM RACE BOARD ATTENDANT) [facility] eGFR 10(L) >=60 mL/min/1. 73 m2 Comment: [...] last reviewed 2021. Blood 03/23/2024 6:15 AM RACE BOARD ATTENDANT 03/23/2024 6:55 AM RACE BOARD ATTENDANT Carmen Graham MD LAB BLOOD ORDER THEODORE Final Result [facility] [address] [facility] [place] [address] * Differential, auto (03/23/2024 6:15 AM RACE BOARD ATTENDANT) Pathologist [facility] Neutrophil abs 3.7 1.5 - 6.5 K/cumm Imm gran abs 0.0 0.0 - 0.1 K/cumm [facility] Lymphocyte abs 1.0 0.8 - 3.3 K/cumm [facility] Monocyte abs 0.4 0.2 - 0.8 K/cumm [facility] Eosinophil abs 0.0 0.0 - 0.5 K/cumm [facility] Basophil abs 0.0 0.0 - 0.1 K/cumm [facility] Neutrophil pct 72.0 % [facility] Comment: Interpretive Data Percent cell count reference ranges are not reported, since discordance with absolute values may lead to misinterpretation of CBC data. Current Interpretive Data was last revised on 2017. Imm gran pct 0.4 % [facility] Comment: Interpretive Data Percent cell count reference ranges are not reported, since discordance with absolute values may lead to misinterpretation of CBC data. Current Interpretive Data was last revised on 2017. Lymphocyte pct 18.6 % [facility] Comment: Interpretive Data Percent cell count reference ranges are not reported, since discordance with absolute values may lead to misinterpretation of CBC data. Current Interpretive Data was last revised on 2017. Monocyte pct 8.4 % [facility] Comment: Interpretive Data Percent cell count reference ranges are not reported, since discordance with absolute values may lead to misinterpretation of CBC data. Current Interpretive Data was last revised on 2017. Eosinophil pct 0.4 % [facility] Comment: Interpretive Data Percent cell count reference ranges are not reported, since discordance with absolute values may lead to misinterpretation of CBC data. Current Interpretive Data was last revised on 2017. Basophil pct 0.2 % [facility] Comment: Interpretive Data Percent cell count reference ranges are not reported, since discordance with absolute values may lead to misinterpretation of CBC data. Current Interpretive Data was last revised on 2017. Blood 03/23/2024 6:15 AM RACE BOARD ATTENDANT 03/23/2024 6:55 AM RACE BOARD ATTENDANT us Tony Mari MD LAB BLOOD ORDERABLES Final Result [facility] [address] [facility] [place] [address] * (ABNORMAL) CBC with auto differential (03/23/2024 6:15 AM RACE BOARD ATTENDANT) WBC 5.1 3.8 - 9.9 K/cumm Hgb 6.9(L) 13.0 - 17.5 g/dL [facility] Hct 21.5(L) 38.9 - 50.3 % [facility] Plt 173 150 - 400 K/cumm [facility] MPV 10.1 9.1 - 12.3 fL [facility] RBC 2.60(L) 4.30 - 5.80 M/cumm [facility] MCV 82.7 81.3 - 96.4 fL [facility] MCH 26.5(L) 27.1 - 33.3 pg [facility] MCHC 32.1(L) 32.3 - 35.7 g/dL [facility] RDW CV 16.3(H) 11.1 - 14.9 % [facility] RDW SD 49.4(H) 35.7 - 48.1 fL [facility] NRBC abs 0.00 0.00 - 0.01 K/cumm [facility] Blood 03/23/2024 6:15 AM RACE BOARD ATTENDANT 03/23/2024 6:55 AM RACE BOARD ATTENDANT Ricki Mills MD LAB BLOOD ORDERABLES Final Result Performing Organization Address City/State/[facility] Co de Phone Number [facility] [address] [facility] [place] [address] * (ABNORMAL) Basic metabolic panel (03/23/2024 6:15 AM RACE BOARD ATTENDANT) Sodium 131(L) 135 - 145 mmol/L Potassium, pl 4.5 3.3 - 4.9 mmol/L [facility] Chloride 91(L) 97 - 110 mmol/L [facility] CO2 28 22 - 32 mmol/L [facility] Anion gap 12 2 - 15 mmol/L [facility] BUN 40(H) 6 - 25 mg/dL [facility] Creatinine 6.28(H) 0.80 - 1.30 mg/dL [facility] Glucose 150 70 - 199 mg/dL [facility] Comment: Interpretive Data Fasting glucose >/= 126 [...] 2022. Calcium 7.7(L) 8.5 - 10.3 mg/dL [facility] Blood 03/23/2024 6:15 AM RACE BOARD ATTENDANT 03/23/2024 6:55 AM RACE BOARD ATTENDANT Ricki Mills MD LAB BLOOD ORDERABLES Final Result Performing Organization Address City/[facility]/ZIP Co de Phone Number [address] [address] * (ABNORMAL) POCT glucose (03/22/2024 8:17 PM RACE BOARD ATTENDANT) Glucose, POC 261(H) 70 - 199 mg/dL Glucose comment 1 Use This Result [facility] Blood 03/22/2024 8:17 PM RACE BOARD ATTENDANT 03/22/2024 8:17 PM RACE BOARD ATTENDANT Tony Mari MD LAB POCT ORDERABLES - DEVICE Final Result Performing Organization Address [facility] Co de Phone Number SATISH[address] [address] * (ABNORMAL) POCT glucose (03/22/2024 6:38 PM RACE BOARD ATTENDANT) Glucose, POC 271(H) 70 - 199 mg/dL Blood 03/22/2024 6:38 PM RACE BOARD ATTENDANT 03/22/2024 6:38 PM RACE BOARD ATTENDANT Tony Mari MD LAB POCT ORDERABLES - DEVICE Final Result Performing Organization Address [facility]/ZIP Co de Phone Number [address] [place] [address] * POCT glucose (03/22/2024 12:46 PM RACE BOARD ATTENDANT) Glucose, POC 149 70 - 199 mg/dL Blood 03/22/2024 12:4 6 PM RACE BOARD ATTENDANT 03/22/2024 12:46 PM RACE BOARD ATTENDANT Tony Mari MD LAB POCT ORDERABLES - DEVICE Final Result Performing Organization Address City/[facility]/ZIP Co de Phone Number [address] [place] [address] * POCT glucose (03/22/2024 7:19 AM RACE BOARD ATTENDANT) [facility] Glucose, POC 167 70 - 199 mg/dL Blood 03/22/2024 7:19 AM RACE BOARD ATTENDANT 03/22/2024 7:19 AM RACE BOARD ATTENDANT Tony Mari MD LAB POCT ORDERABLES - DEVICE Final Result Performing Organization Address City/[facility]/ZIP Co de Phone Number JESSIE [address] [place] [address] * (ABNORMAL) eGFR (03/22/2024 4:49 AM RACE BOARD ATTENDANT) [facility] eGFR 10(L) >=60 mL/min/1. 73 m2 Comment: [...] last reviewed 2021. Blood 03/22/2024 4:49 AM RACE BOARD ATTENDANT 03/22/2024 5:00 AM RACE BOARD ATTENDANT Tony Mari MD LAB BLOOD ORDERABLES Final Result Performing Organization Address City/[facility]/ZIP Co de Phone Number JESSIE [address] [employer] [address] * Differential, auto (03/22/2024 4:49 AM RACE BOARD ATTENDANT) [facility] Neutrophil abs 3.6 1.5 - 6.5 K/cumm Imm gran abs 0.0 0.0 - 0.1 K/cumm [facility] Lymphocyte abs 0.8 0.8 - 3.3 K/cumm [facility] Monocyte abs 0.4 0.2 - 0.8 K/cumm [facility] Eosinophil abs 0.0 0.0 - 0.5 K/cumm [facility] Basophil abs 0.0 0.0 - 0.1 K/cumm [facility] Neutrophil pct 74.9 % [facility] Comment: Interpretive Data Percent cell count reference ranges are not reported, since discordance with absolute values may lead to misinterpretation of CBC data. Current Interpretive Data was last revised on 2017. Imm gran pct 0.2 % [facility] Comment: Interpretive Data Percent cell count reference ranges are not reported, since discordance with absolute values may lead to misinterpretation of CBC data. Current Interpretive Data was last revised on 2017. Lymphocyte pct 16.4 % [facility] Comment: Interpretive Data Percent cell count reference ranges are not reported, since discordance with absolute values may lead to misinterpretation of CBC data. Current Interpretive Data was last revised on 2017. Monocyte pct 7.7 % [facility] Comment: Interpretive Data Percent cell count reference ranges are not reported, since discordance with absolute values may lead to misinterpretation of CBC data. Current Interpretive Data was last revised on 2017. Eosinophil pct 0.6 % [facility] Comment: Interpretive Data Percent cell count reference ranges are not reported, since discordance with absolute values may lead to misinterpretation of CBC data. Current Interpretive Data was last revised on 2017. Basophil pct 0.2 % [facility] Comment: Interpretive Data Percent cell count reference ranges are not reported, since discordance with absolute values may lead to misinterpretation of CBC data. Current Interpretive Data was last revised on 2017. Blood 03/22/2024 4:49 AM RACE BOARD ATTENDANT 03/22/2024 4:59 AM RACE BOARD ATTENDANT us Tony Mari MD LAB BLOOD ORDERABLES Final Result JESSIE [address] [facility] Department [place] [address] * (ABNORMAL) CBC with auto differential (03/22/2024 4:49 AM RACE BOARD ATTENDANT) [facility] WBC 4.8 3.8 - 9.9 K/cumm Hgb 7.4(L) 13.0 - 17.5 g/dL [facility] Hct 23.1(L) 38.9 - 50.3 % [facility] Plt 167 150 - 400 K/cumm [facility] MPV 9.5 9.1 - 12.3 fL [facility] RBC 2.78(L) 4.30 - 5.80 M/cumm [facility] MCV 83.1 81.3 - 96.4 fL [facility] MCH 26.6(L) 27.1 - 33.3 pg [facility] MCHC 32.0(L) 32.3 - 35.7 g/dL [facility] RDW CV 16.3(H) 11.1 - 14.9 % [facility] RDW SD 50.0(H) 35.7 - 48.1 fL [facility] NRBC abs 0.00 0.00 - 0.01 K/cumm [facility] Blood 03/22/2024 4:49 AM RACE BOARD ATTENDANT 03/22/2024 4:59 AM RACE BOARD ATTENDANT us Ricki Mills MD LAB BLOOD ORDERABLES Final Result Performing Organization Address City/[facility]/ZIP Co de Phone Number [address] Department [place] [address] * Vancomycin level random (03/22/2024 4:49 AM RACE BOARD ATTENDANT) [facility] Vancomycin random 19.1 mcg/mL Comment: Interpretive Data No reference ranges have been established for random drug levels. Current Interpretive Data was last revised on 2020. Blood 03/22/2024 4:49 AM RACE BOARD ATTENDANT 03/22/2024 5:00 AM RACE BOARD ATTENDANT us Tony Mari MD LAB BLOOD ORDERABLES Final Result [address] Department [place] [address] * (ABNORMAL) Basic metabolic panel (03/22/2024 4:49 AM RACE BOARD ATTENDANT) [facility] Sodium 131(L) 135 - 145 mmol/L Potassium, pl 4.9 3.3 - 4.9 mmol/L [facility] Chloride 91(L) 97 - 110 mmol/L [facility] CO2 27 22 - 32 mmol/L [facility] Anion gap 13 2 - 15 mmol/L [facility] BUN 42(H) 6 - 25 mg/dL [facility] Creatinine 6.22(H) 0.80 - 1.30 mg/dL [facility] Glucose 170 70 - 199 mg/dL [facility] Comment: Interpretive Data Fasting glucose >/= 126 [...] 2022. Calcium 6.5(C) 8.5 - 10.3 mg/dL [facility] Comment:Critical Result call ed to and read back by [id number], DATE: 2024-03-22 05:53:08 BY: [id number] Blood 03/22/2024 4:49 AM RACE BOARD ATTENDANT 03/22/2024 5:00 AM RACE BOARD ATTENDANT us Tony Mari MD LAB BLOOD ORDERABLES Final Result JESSEI [address] [facility] Department [place] [address] * (ABNORMAL) POCT glucose (03/21/2024 8:14 PM RACE BOARD ATTENDANT) [facility] Glucose, POC 239(H) 70 - 199 mg/dL Glucose comment 1 Use This Result [facility] Blood 03/21/2024 8:14 PM RACE BOARD ATTENDANT 03/21/2024 8:14 PM RACE BOARD ATTENDANT Tony Mari MD LAB POCT ORDERABLES - DEVICE Final Result Performing Organization Address City/[facility]/ZIP Co de Phone Number [address] [address] * (ABNORMAL) POCT glucose (03/21/2024 5:29 PM RACE BOARD ATTENDANT) [facility] Glucose, POC 236(H) 70 - 199 mg/dL Blood 03/21/2024 5:29 PM RACE BOARD ATTENDANT 03/21/2024 5:29 PM RACE BOARD ATTENDANT Tony Mari MD LAB POCT ORDERABLES - DEVICE Final Result Performing Organization Address [facility] Co de Phone Number [address] [address] * US Arterial Doppler Lower Extremity Bilateral (03/21/2024 1:52 PM RACE BOARD ATTENDANT) Anatomical Region Laterality Modality Vascular Bilateral Ultrasound 03/21/2024 Narrative 03/25/2024 8:54 AM RACE BOARD ATTENDANT [employer] Job ID: [id number] [facility] Document ID: [id number] Dictated date/time: [id number] BILATERAL LOWER EXTREMITY ARTERIAL DOPPLER REASON FOR [...] inframalleolar occlusive disease. Job ID/Internal Job ID: [id number] us Anjel Ochoa MD IMG US PROCEDURES Final Res ult * POCT glucose (03/21/2024 12:14 PM RACE BOARD ATTENDANT) Glucose, POC 157 70 - 199 mg/dL Blood 03/21/2024 12:1 4 PM RACE BOARD ATTENDANT 03/21/2024 12:14 PM RACE BOARD ATTENDANT us Tony Mari MD LAB POCT ORDERABLES - DEVICE Final Result Performing Organization Address [facility] Co de Phone Number JESSIE [address] [employer] [address] * (ABNORMAL) eGFR (03/21/2024 7:37 AM RACE BOARD ATTENDANT) eGFR 8(L) >=60 mL/min/1. 73 m2 Comment: [...] last reviewed 2021. Blood 03/21/2024 7:37 AM RACE BOARD ATTENDANT 03/21/2024 7:42 AM RACE BOARD ATTENDANT us Carmen Graham MD LAB BLOOD ORDER [place] Final Result Performing Organization Address City/[facility]/ZIP Co de Phone Number JESSIE [address] Department [place] [address] * (ABNORMAL) Differential, auto (03/21/2024 7:37 AM RACE BOARD ATTENDANT) Pathologist [facility] Neutrophil abs 2.7 1.5 - 6.5 K/cumm Imm gran abs 0.0 0.0 - 0.1 K/cumm [facility] Lymphocyte abs 0.7(L) 0.8 - 3.3 K/cumm [facility] Monocyte abs 0.3 0.2 - 0.8 K/cumm [facility] Eosinophil abs 0.0 0.0 - 0.5 K/cumm [facility] Basophil abs 0.0 0.0 - 0.1 K/cumm [facility] Neutrophil pct 73.1 % [facility] Comment: Interpretive Data Percent cell count reference ranges are not reported, since discordance with absolute values may lead to misinterpretation of CBC data. Current Interpretive Data was last revised on 2017. Imm gran pct 0.3 % [facility] Comment: Interpretive Data Percent cell count reference ranges are not reported, since discordance with absolute values may lead to misinterpretation of CBC data. Current Interpretive Data was last revised on 2017. Lymphocyte pct 18.3 % [facility] Comment: Interpretive Data Percent cell count reference ranges are not reported, since discordance with absolute values may lead to misinterpretation of CBC data. Current Interpretive Data was last revised on 2017. Monocyte pct 7.5 % [facility] Comment: Interpretive Data Percent cell count reference ranges are not reported, since discordance with absolute values may lead to misinterpretation of CBC data. Current Interpretive Data was last revised on 2017. Eosinophil pct 0.8 % [facility] Comment: Interpretive Data Percent cell count reference ranges are not reported, since discordance with absolute values may lead to misinterpretation of CBC data. Current Interpretive Data was last revised on 2017. Basophil pct 0.0 % [facility] Comment: Interpretive Data Percent cell count reference ranges are not reported, since discordance with absolute values may lead to misinterpretation of CBC data. Current Interpretive Data was last revised on 2017. Blood 03/21/2024 7:37 AM RACE BOARD ATTENDANT 03/21/2024 7:42 AM RACE BOARD ATTENDANT us Royer Odom MD LAB BLOOD ORDERABLES Final Re sult [address] [address] * (ABNORMAL) Thyroid Function Elroy (03/21/2024 7:37 AM RACE BOARD ATTENDANT) Pathologist [facility] TSH 17.70(H) 0.30 - 4.20 mcIUnit/mL Blood 03/21/2024 7:37 AM RACE BOARD ATTENDANT 03/21/2024 7:42 AM RACE BOARD ATTENDANT Tony Mari MD LAB BLOOD ORDERABLES Final Result Performing Organization Address [facility] Co de Phone Number [address] [address] * (ABNORMAL) CBC with auto differential (03/21/2024 7:37 AM RACE BOARD ATTENDANT) [facility] WBC 3.7(L) 3.8 - 9.9 K/cumm Hgb 7.5(L) 13.0 - 17.5 g/dL [facility] Hct 22.9(L) 38.9 - 50.3 % [facility] Plt 162 150 - 400 K/cumm [facility] MPV 10.0 9.1 - 12.3 fL [facility] RBC 2.81(L) 4.30 - 5.80 M/cumm [facility] MCV 81.5 81.3 - 96.4 fL [facility] MCH 26.7(L) 27.1 - 33.3 pg [facility] MCHC 32.8 32.3 - 35.7 g/dL [facility] RDW CV 16.1(H) 11.1 - 14.9 % [facility] RDW SD 48.6(H) 35.7 - 48.1 fL [facility] NRBC abs 0.00 0.00 - 0.01 K/cumm [facility] Blood 03/21/2024 7:37 AM RACE BOARD ATTENDANT 03/21/2024 7:42 AM RACE BOARD ATTENDANT Royer Odom MD LAB BLOOD ORDERABLES Final Re sult Performing Organization Address [facility] Co de Phone Number SATISH[address] [address] * (ABNORMAL) T4, free (03/21/2024 7:37 AM RACE BOARD ATTENDANT) Pathologist [facility] Free T4 0.58(L) 0.90 - 1.70 ng/dL Blood 03/21/2024 7:37 AM RACE BOARD ATTENDANT 03/21/2024 7:42 AM RACE BOARD ATTENDANT Narrative [facility] - 03/21/2024 9:28 AM RACE BOARD ATTENDANT This test was reflexed from a TSH result. Tony Mari MD LAB BLOOD ORDERABLES Final Result Performing Organization Address [facility] de Phone Number [address] [address] * Vancomycin level random (03/21/2024 7:37 AM RACE BOARD ATTENDANT) [facility] Vancomycin random <4.0 mcg/mL Comment: Interpretive Data No reference ranges have been established for random drug levels. Current Interpretive Data was last revised on 2020. Blood 03/21/2024 7:37 AM RACE BOARD ATTENDANT 03/21/2024 7:42 AM RACE BOARD ATTENDANT Tony Mari MD LAB BLOOD ORDERABLES Final Result Performing Organization Address [facility] Co de Phone Number SATISH[address] [place] [address] * (ABNORMAL) Basic metabolic panel (03/21/2024 7:37 AM RACE BOARD ATTENDANT) [facility] Sodium 130(L) 135 - 145 mmol/L Potassium, pl 5.0(H) 3.3 - 4.9 mmol/L [facility] Chloride 91(L) 97 - 110 mmol/L [facility] CO2 26 22 - 32 mmol/L [facility] Anion gap 13 2 - 15 mmol/L [facility] BUN 63(H) 6 - 25 mg/dL [facility] Creatinine 8.14(H) 0.80 - 1.30 mg/dL [facility] Glucose 227(H) 70 - 199 mg/dL [facility] Comment: Interpretive Data Fasting glucose >/= 126 [...] 2022. Calcium 7.1(L) 8.5 - 10.3 mg/dL [facility] Blood 03/21/2024 7:37 AM RACE BOARD ATTENDANT 03/21/2024 7:42 AM RACE BOARD ATTENDANT us Ricki Mills MD LAB BLOOD ORDERABLES Final Result [facility] [address] [facility] Department [place] [address] * (ABNORMAL) Aerobic culture and gram stain Wound Foot, right (03/21/2024 1:40 AM RACE BOARD ATTENDANT) Direct Specimen Exam Stain: No polymorphonuclear leukocytes seen. Abundant Gram Positive Cocci Moderate Gram Positive Bacilli Comment:Testing performed by : [facility], [address] [place] [address], [place]., [address] Report Final Report: Abundant Enterococcus faecalis Moderate Mixed microorganisms. (.) [facility] Comment:Testing performed by : [address] [address] Organism MIXED MICROORGANISMS. [facility] Organism ENTEROCOCCUS FAECALIS [facility] Wound (Foot, right) 03/21/2024 1:40 AM RACE BOARD ATTENDANT 03/21/2024 7:15 AM RACE BOARD ATTENDANT Narrative [facility] - 03/26/2024 7:14 AM RACE BOARD ATTENDANT Specimen received on an ESwab. Testing performed by [facility] Microbiology [facility] ([phone]) Specimens submitted from normally sterile body sites [...] Y - GENERAL ORDERABLES Final Result JESSIE [address] [facility] Department [place] [address] * Blood culture Blood Peripheral (03/20/2024 7:13 PM RACE BOARD ATTENDANT) Report Final Report: No growth Comment:Testing performed by : [facility], [address] [facility]., [address] Blood (Peripheral) 03/20/2024 7:13 PM RACE BOARD ATTENDANT 03/20/2024 9:49 PM RACE BOARD ATTENDANT Narrative JESSIE - 03/25/2024 7:00 AM RACE BOARD ATTENDANT From a different site than #1. Draw [...] performance characteristics have been verified by the [facility]. For questions about this culture, contact the Microbiology Laboratory at [phone]. Interpretive data was last revised on 23. us Sarah Donohue MD LAB MICROBIOLOGY - GEN ERAL ORDERABLES Final Result Performing Organization Address City/[facility]/ZIP Co de Phone Number JESSIE HILLS [address] [facility] Department [place] [address] * (ABNORMAL) eGFR (03/20/2024 7:12 PM RACE BOARD ATTENDANT) eGFR 10(L) >=60 mL/min/1. 73 m2 Comment: [...] last reviewed 2021. Blood 03/20/2024 7:12 PM RACE BOARD ATTENDANT 03/20/2024 7:15 PM RACE BOARD ATTENDANT us Sarah Donohue MD LAB BLOOD ORDERABLES F inal Result [place] [id number] [facility] [place] [address] * (ABNORMAL) Basic metabolic panel (03/20/2024 7:12 PM RACE BOARD ATTENDANT) [facility] Sodium 133(L) 135 - 145 mmol/L Potassium, pl 4.6 3.3 - 4.9 mmol/L [facility] Chloride 93(L) 97 - 110 mmol/L [facility] CO2 25 22 - 32 mmol/L [facility] Anion gap 15 2 - 15 mmol/L [facility] BUN 50(H) 6 - 25 mg/dL [facility] Creatinine 6.69(H) 0.80 - 1.30 mg/dL [facility] Glucose 153 70 - 199 mg/dL [facility] Comment: Interpretive Data Fasting glucose >/= 126 [...] 2022. Calcium 7.2(L) 8.5 - 10.3 mg/dL [facility] Blood 03/20/2024 7:12 PM RACE BOARD ATTENDANT 03/20/2024 7:15 PM RACE BOARD ATTENDANT us Sarah Donohue MD LAB BLOOD ORDERABLES F inal Result [place] [address] [facility] [place] [place] [address] * (ABNORMAL) Blood culture Blood Peripheral (03/20/2024 7:11 PM RACE BOARD ATTENDANT) [facility] Direct Specimen Exam Molecular Analysis: Staphylococcus epidermidis (methicillin-susce ptible) detected by [facility] BCID-GP panel. Single positive culture may represent contamination. This test does not exclude the possibility of a mixed bacterial infection. Notification of: Staphylococcus epidermidis (methicillin-susce ptible) called to and read back by: Nikko Horton, MLS [phone] on 03/21/2024 22:09:44 by: Elyse Daniel, [place] Test result called to and read back by ORTEGA Velazquez on 03/21/2024 22:15:42 by Nikko Villegas MLS Comment:Testing performed by : [address] [address] Direct Specimen Exam Stain: Gram Positive Cocci in clusters Time to culture positivity (anaerobic media): 22.0 hours Notification of: Gram Positive Cocci in clusters called to and read back by: Hema BustosINVENTORY CONTROLLER [phone] on 03/21/2024 20:19:58 by: Eugenia [email or web address] Test result called to and read back by Elian VIVAS [id number] on 03/21/242039 by [id number] JESSIE Comment:Testing performed by : [facility], [address] [place] [address]., [id number] Report Final Report: Staphylococcus epidermidis Single blood culture positive for this microorganism. Isolate is a possible contaminant. If a similar isolate is recovered from a second blood culture collected within 3 days of this culture, both will be evaluated and, if determined to be the same species, antimicrobial susceptibility testing will be performed. (.) JESSIE Comment:Testing performed by : [address] [address] Organism STAPHYLOCOCCUS EPIDERMIDIS JESSIE Blood (Peripheral) 03/20/2024 7:11 PM RACE BOARD ATTENDANT 03/20/2024 9:49 PM RACE BOARD ATTENDANT Narrative JESSIE - 03/25/2024 10:18 AM RACE BOARD ATTENDANT Draw Blood cultures before administration of Antibiotics [...] performance characteristics have been verified by the [facility]. For questions about this culture, contact the Microbiology Laboratory at [phone]. Interpretive data was last revised on 23. Sarah Donohue MD LAB MICROBIOLOGY - GEN ERAL ORDERABLES Final Result Performing Organization Address [facility] Co de Phone Number JESSIE [address] [employer] [address] * Potassium (03/20/2024 4:11 PM RACE BOARD ATTENDANT) Potassium, pl 4.7 3.3 - 4.9 mmol/L Blood 03/20/2024 4:11 PM RACE BOARD ATTENDANT 03/20/2024 4:22 PM RACE BOARD ATTENDANT Royer Odom MD LAB BLOOD ORDERABLES Final Re sult Performing Organization Address [facility] Co de Phone Number [address] [employer] [address] * XR Foot Right 3 or More Views (03/20/2024 1:30 PM RACE BOARD ATTENDANT) Anatomical Region Laterality Modality Lower Extremities, Foot Right Computed Radiography 03/20/2024 1:42 PM RACE BOARD ATTENDANT Narrative 03/20/2024 1:48 PM RACE BOARD ATTENDANT EXAM DESCRIPTION: XR FOOT RIGHT 3 OR [...] Hilda Pichardo M.D. FT T: Report ID: [id number] Reading Location: [id number] Procedure Note Hilda Constantino MD - 03/20/2024 [...] Hilda Pichardo M.D. FT T: Report ID: [id number] Reading Location: [id number] us Sarah Donohue MD IMG XR PROCEDURES Nita l Result * (ABNORMAL) eGFR (03/20/2024 1:19 PM RACE BOARD ATTENDANT) eGFR 6(L) >=60 mL/min/1. 73 m2 Comment: [...] last reviewed 2021. Blood 03/20/2024 1:19 PM RACE BOARD ATTENDANT 03/20/2024 1:34 PM RACE BOARD ATTENDANT us Sarah Donohue MD LAB BLOOD ORDERABLES F inal Result JESSIE [address] [facility] Department [place] [address] * (ABNORMAL) Differential, auto (03/20/2024 1:19 PM RACE BOARD ATTENDANT) Neutrophil abs 4.1 1.5 - 6.5 K/cumm Imm gran abs 0.0 0.0 - 0.1 K/cumm [facility] Lymphocyte abs 0.7(L) 0.8 - 3.3 K/cumm [facility] Monocyte abs 0.4 0.2 - 0.8 K/cumm [facility] Eosinophil abs 0.1 0.0 - 0.5 K/cumm [facility] Basophil abs 0.0 0.0 - 0.1 K/cumm [facility] Neutrophil pct 78.1 % [facility] Comment: Interpretive Data Percent cell count reference ranges are not reported, since discordance with absolute values may lead to misinterpretation of CBC data. Current Interpretive Data was last revised on 2017. Imm gran pct 0.2 % [facility] Comment: Interpretive Data Percent cell count reference ranges are not reported, since discordance with absolute values may lead to misinterpretation of CBC data. Current Interpretive Data was last revised on 2017. Lymphocyte pct 13.7 % [facility] Comment: Interpretive Data Percent cell count reference ranges are not reported, since discordance with absolute values may lead to misinterpretation of CBC data. Current Interpretive Data was last revised on 2017. Monocyte pct 7.0 % [facility] Comment: Interpretive Data Percent cell count reference ranges are not reported, since discordance with absolute values may lead to misinterpretation of CBC data. Current Interpretive Data was last revised on 2017. Eosinophil pct 1.0 % [facility] Comment: Interpretive Data Percent cell count reference ranges are not reported, since discordance with absolute values may lead to misinterpretation of CBC data. Current Interpretive Data was last revised on 2017. Basophil pct 0.0 % [facility] Comment: Interpretive Data Percent cell count reference ranges are not reported, since discordance with absolute values may lead to misinterpretation of CBC data. Current Interpretive Data was last revised on 2017. Blood 03/20/2024 1:19 PM RACE BOARD ATTENDANT 03/20/2024 1:35 PM RACE BOARD ATTENDANT us Sarah Donohue MD LAB BLOOD ORDERABLES F inal Result JESSIE [address] [facility] [place] [address] * (ABNORMAL) CBC with auto differential (03/20/2024 1:19 PM RACE BOARD ATTENDANT) [facility] WBC 5.3 3.8 - 9.9 K/cumm Hgb 8.1(L) 13.0 - 17.5 g/dL [facility] Hct 25.3(L) 38.9 - 50.3 % [facility] Plt 181 150 - 400 K/cumm [facility] MPV 10.0 9.1 - 12.3 fL [facility] RBC 3.07(L) 4.30 - 5.80 M/cumm [facility] MCV 82.4 81.3 - 96.4 fL [facility] MCH 26.4(L) 27.1 - 33.3 pg [facility] MCHC 32.0(L) 32.3 - 35.7 g/dL [facility] RDW CV 16.3(H) 11.1 - 14.9 % [facility] RDW SD 49.1(H) 35.7 - 48.1 fL [facility] NRBC abs 0.00 0.00 - 0.01 K/cumm [facility] Blood Venous blood specimen / Unknown 03/20/2024 1:19 PM RACE BOARD ATTENDANT 03/20/2024 1:35 PM RACE BOARD ATTENDANT Sarah Donohue MD LAB BLOOD ORDERABLES F inal Result [address] [address] * Lipase (03/20/2024 1:19 PM RACE BOARD ATTENDANT) [facility] Lipase 53 10 - 99 Units/L Blood 03/20/2024 1:19 PM RACE BOARD ATTENDANT 03/20/2024 1:34 PM RACE BOARD ATTENDANT Sarah Donohue MD LAB BLOOD ORDERABLES F inal Result [address] [address] * (ABNORMAL) Comprehensive metabolic panel (03/20/2024 1:19 PM RACE BOARD ATTENDANT) Sodium 130(L) 135 - 145 mmol/L Potassium, pl 6.6(C) 3.3 - 4.9 mmol/L [facility] Comment:Critical Result call ed to and read back by [id number], DATE: 2024-03-20 14:11:46 BY: [id number] Chloride 91(L) 97 - 110 mmol/L [facility] CO2 24 22 - 32 mmol/L [facility] Anion gap 15 2 - 15 mmol/L [facility] BUN 87(H) 6 - 25 mg/dL [facility] Creatinine 10.10(H) 0.80 - 1.30 mg/dL [facility] Glucose 129 70 - 199 mg/dL [facility] Comment: Interpretive Data Fasting glucose >/= 126 [...] 2022. Calcium 7.3(L) 8.5 - 10.3 mg/dL [facility] Bilirubin, total 0.6 0.1 - 1.2 mg/dL [facility] Protein, pl 6.9 6.5 - 8.5 g/dL [facility] Albumin 3.9 3.5 - 5.0 g/dL [facility] Alk phos 480(H) 40 - 130 Units/L [facility] ALT 13 7 - 55 Units/L [facility] AST 15 10 - 50 Units/L [facility] Blood Venous blood specimen / Unknown 03/20/2024 1:19 PM RACE BOARD ATTENDANT 03/20/2024 1:34 PM RACE BOARD ATTENDANT us Sarah Donohue MD LAB BLOOD ORDERABLES F inal Result [place] [address] [facility] [place] [address] * (ABNORMAL) Troponin T high-sensitivity 6-hour (03/12/2024 10:56 PM RACE BOARD ATTENDANT) Pathologist [facility] Trop T hs 136(H) <=22 ng/L Comment: Interpretive Data For further hscTnT resources including the diagnostic algorithm and an aid in interpretation, copy and paste this link: [email or web address] Current Interpretive Data last revised 2020. Trop T hs interp Insignificant [facility] Blood 03/12/2024 10:5 6 PM RACE BOARD ATTENDANT 03/12/2024 10:56 PM RACE BOARD ATTENDANT us Marshall Naranjo MD LAB BLOOD ORDERABLES Fi nal Result [place] [id number] [facility] [place] [address] * Differential, auto (03/12/2024 10:56 PM RACE BOARD ATTENDANT) [facility] Neutrophil abs 2.3 1.5 - 6.5 K/cumm Imm gran abs 0.0 0.0 - 0.1 K/cumm [facility] Lymphocyte abs 0.8 0.8 - 3.3 K/cumm [facility] Monocyte abs 0.2 0.2 - 0.8 K/cumm [facility] Eosinophil abs 0.0 0.0 - 0.5 K/cumm [facility] Basophil abs 0.0 0.0 - 0.1 K/cumm [facility] Neutrophil pct 68.1 % [facility] Comment: Interpretive Data Percent cell count reference ranges are not reported, since discordance with absolute values may lead to misinterpretation of CBC data. Current Interpretive Data was last revised on 2017. Imm gran pct 0.3 % [facility] Comment: Interpretive Data Percent cell count reference ranges are not reported, since discordance with absolute values may lead to misinterpretation of CBC data. Current Interpretive Data was last revised on 2017. Lymphocyte pct 23.2 % [facility] Comment: Interpretive Data Percent cell count reference ranges are not reported, since discordance with absolute values may lead to misinterpretation of CBC data. Current Interpretive Data was last revised on 2017. Monocyte pct 6.9 % [facility] Comment: Interpretive Data Percent cell count reference ranges are not reported, since discordance with absolute values may lead to misinterpretation of CBC data. Current Interpretive Data was last revised on 2017. Eosinophil pct 1.2 % [facility] Comment: Interpretive Data Percent cell count reference ranges are not reported, since discordance with absolute values may lead to misinterpretation of CBC data. Current Interpretive Data was last revised on 2017. Basophil pct 0.3 % [facility] Comment: Interpretive Data Percent cell count reference ranges are not reported, since discordance with absolute values may lead to misinterpretation of CBC data. Current Interpretive Data was last revised on 2017. Blood 03/12/2024 10:5 6 PM RACE BOARD ATTENDANT 03/12/2024 10:56 PM RACE BOARD ATTENDANT us Marshall Naranjo MD LAB BLOOD ORDERABLES Fi nal Result [facility] [address] [facility] Department [place] [address] * (ABNORMAL) CBC with auto differential (03/12/2024 10:56 PM RACE BOARD ATTENDANT) WBC 3.3(L) 3.8 - 9.9 K/cumm Hgb 9.9(L) 13.0 - 17.5 g/dL [facility] Hct 30.4(L) 38.9 - 50.3 % [facility] Plt 159 150 - 400 K/cumm [facility] MPV 9.3 9.1 - 12.3 fL [facility] RBC 3.71(L) 4.30 - 5.80 M/cumm [facility] MCV 81.9 81.3 - 96.4 fL [facility] MCH 26.7(L) 27.1 - 33.3 pg [facility] MCHC 32.6 32.3 - 35.7 g/dL [facility] RDW CV 15.9(H) 11.1 - 14.9 % [facility] RDW SD 48.0 35.7 - 48.1 fL [facility] NRBC abs 0.00 0.00 - 0.01 K/cumm [facility] Blood 03/12/2024 10:5 6 PM RACE BOARD ATTENDANT 03/12/2024 10:56 PM RACE BOARD ATTENDANT Result [facility] Reagan Hernandez MD LAB BLOOD ORDERABLES Final Result Performing Organization Address [facility] Co de Phone Number [address] [employer] [address] * Potassium (03/12/2024 7:15 PM RACE BOARD ATTENDANT) Pathologist [facility] Potassium, pl 4.8 3.3 - 4.9 mmol/L Comment:Delta - Results Revi ewed Blood 03/12/2024 7:15 PM RACE BOARD ATTENDANT 03/12/2024 7:17 PM RACE BOARD ATTENDANT Result [facility] Louis Carmen MD LAB BLOOD ORDERABLES Final Resu lt Performing Organization Address [facility] de Phone Number [address] [place] [address] * (ABNORMAL) Troponin T high-sensitivity 2-hour (03/12/2024 6:58 PM RACE BOARD ATTENDANT) Trop T hs 134(H) <=22 ng/L Comment: Interpretive Data For further hscTnT resources including the diagnostic algorithm and an aid in interpretation, copy and paste this link: https://nrl.testcatalog.org/show/hsTrop Current Interpretive Data last revised 2020. Trop T hs pct delta 1 % [facility] Trop T hs interp Insignificant [facility] Blood 03/12/2024 6:58 PM RACE BOARD ATTENDANT 03/12/2024 7:02 PM RACE BOARD ATTENDANT Result [facility] Marshall Naranjo MD LAB BLOOD ORDERABLES Fi nal Result Performing Organization Address [facility] Co de Phone Number [address] [place] [address] * (ABNORMAL) Troponin T high-sensitivity series (baseline, 2hr, 4hr, 6hr) (03/12/2024 4:56 PM RACE BOARD ATTENDANT) Trop T hs 133(H) <=22 ng/L Comment: Interpretive Data For further hscTnT resources including the diagnostic algorithm and an aid in interpretation, copy and paste this link: https://nrl.testcatalog.org/show/hsTrop Current Interpretive Data last revised 2020. Blood 03/12/2024 4:56 PM RACE BOARD ATTENDANT 03/12/2024 5:00 PM RACE BOARD ATTENDANT us Marshall Naranjo MD LAB BLOOD ORDERABLES Fi nal Result [place] [address] [facility] [place] [address] * (ABNORMAL) eGFR (03/12/2024 4:56 PM RACE BOARD ATTENDANT) eGFR 6(L) >=60 mL/min/1. 73 m2 Comment: [...] last reviewed 2021. Blood 03/12/2024 4:56 PM RACE BOARD ATTENDANT 03/12/2024 5:00 PM RACE BOARD ATTENDANT Marshall Naranjo MD LAB BLOOD ORDERABLES Fi nal Result Performing Organization Address [facility] de Phone Number [address] [place] [address] * (ABNORMAL) Phosphorus (03/12/2024 4:56 PM RACE BOARD ATTENDANT) [facility] Phosphorus, pl 5.5(H) 2.3 - 4.5 mg/dL Blood 03/12/2024 4:56 PM RACE BOARD ATTENDANT 03/12/2024 5:00 PM RACE BOARD ATTENDANT Marshall Naranjo MD LAB BLOOD ORDERABLES Fi nal Result Performing Organization Address [facility] de Phone Number [address] [place] [address] * Magnesium (03/12/2024 4:56 PM RACE BOARD ATTENDANT) [facility] Magnesium 2.2 1.4 - 2.5 mg/dL Blood 03/12/2024 4:56 PM RACE BOARD ATTENDANT 03/12/2024 5:00 PM RACE BOARD ATTENDANT Marshall Naranjo MD LAB BLOOD ORDERABLES Fi nal Result Performing Organization Address [facility] de Phone Number [address] [place] [address] * (ABNORMAL) Basic metabolic panel (03/12/2024 4:56 PM RACE BOARD ATTENDANT) [facility] Sodium 130(L) 135 - 145 mmol/L Potassium, pl 7.4(C) 3.3 - 4.9 mmol/L [facility] Comment:Critical Result call ed to and read back by [email or web address], DATE: 2024-03-12 17:38:41 BY: [id number] Chloride 89(L) 97 - 110 mmol/L [facility] CO2 26 22 - 32 mmol/L [facility] Anion gap 15 2 - 15 mmol/L [facility] BUN 67(H) 6 - 25 mg/dL [facility] Creatinine 9.36(H) 0.80 - 1.30 mg/dL [facility] Glucose 337(H) 70 - 199 mg/dL [facility] Comment: Interpretive Data Fasting glucose >/= 126 [...] 2022. Calcium 7.5(L) 8.5 - 10.3 mg/dL [facility] Blood 03/12/2024 4:56 PM RACE BOARD ATTENDANT 03/12/2024 5:00 PM RACE BOARD ATTENDANT Marshall Naranjo MD LAB BLOOD ORDERABLES Fi nal Result [facility] [address] [facility] Department [place] [address] * ECG 12 lead (03/12/2024 4:53 PM RACE BOARD ATTENDANT) Ventricular Rate EKG/Min 71 BPM [facility] Atrial Rate 71 BPM [facility] FL-Interval (MSEC) 208 ms [facility] QRS-Interval (MSEC) 126 ms [facility] QT-Interval (MSEC) 456 ms [facility] QTc 495 ms [facility] P [place] 43 degrees [facility] R [place] 29 degrees [facility] T [place] 50 degrees [facility] Diagnosis Normal sinus rhythm Non-specific intra-ventric ular conduction block Abnormal ECG Confirmed by RUCHI ZAFAR M.D. ([id number]) on 03/12/2024 5:47:06 PM [facility] 03/12/2024 4:53 PM RACE BOARD ATTENDANT 03/12/2024 5:47 PM RACE BOARD ATTENDANT Marshall Naranjo MD ECG ORDERABLES Final R esult [facility] * [place] CRITICAL CARE ILL/INJURED PATIENT INIT 30-74 MIN (03/12/2024 4:30 PM RACE BOARD ATTENDANT) Narrative Marshall Naranjo MD - 03/12/2024 4:30 PM RACE BOARD ATTENDANT Marshall Naranjo MD 03/12/2024 8:00 PM Critical [...] Result * (ABNORMAL) eGFR (02/28/2024 3:58 AM RACE BOARD ATTENDANT) eGFR 9(L) >=60 mL/min/1. 73 m2 Comment: [...] last reviewed 2021. Blood 02/28/2024 3:58 AM RACE BOARD ATTENDANT 02/28/2024 4:06 AM RACE BOARD ATTENDANT Jerri Ferrer MD LAB BLOOD ORDERABLES Final Result [place] [id number] [facility] Department [place] [address] * Differential, auto (02/28/2024 3:58 AM RACE BOARD ATTENDANT) Pathologist [facility] Neutrophil abs 2.0 1.5 - 6.5 K/cumm Imm gran abs 0.0 0.0 - 0.1 K/cumm [facility] Lymphocyte abs 0.8 0.8 - 3.3 K/cumm [facility] Monocyte abs 0.4 0.2 - 0.8 K/cumm [facility] Eosinophil abs 0.0 0.0 - 0.5 K/cumm [facility] Basophil abs 0.0 0.0 - 0.1 K/cumm [facility] Neutrophil pct 61.8 % [facility] Comment: Interpretive Data Percent cell count reference ranges are not reported, since discordance with absolute values may lead to misinterpretation of CBC data. Current Interpretive Data was last revised on 2017. Imm gran pct 0.3 % [facility] Comment: Interpretive Data Percent cell count reference ranges are not reported, since discordance with absolute values may lead to misinterpretation of CBC data. Current Interpretive Data was last revised on 2017. Lymphocyte pct 25.5 % [facility] Comment: Interpretive Data Percent cell count reference ranges are not reported, since discordance with absolute values may lead to misinterpretation of CBC data. Current Interpretive Data was last revised on 2017. Monocyte pct 11.2 % [facility] Comment: Interpretive Data Percent cell count reference ranges are not reported, since discordance with absolute values may lead to misinterpretation of CBC data. Current Interpretive Data was last revised on 2017. Eosinophil pct 0.9 % [facility] Comment: Interpretive Data Percent cell count reference ranges are not reported, since discordance with absolute values may lead to misinterpretation of CBC data. Current Interpretive Data was last revised on 2017. Basophil pct 0.3 % [facility] Comment: Interpretive Data Percent cell count reference ranges are not reported, since discordance with absolute values may lead to misinterpretation of CBC data. Current Interpretive Data was last revised on 2017. Blood 02/28/2024 3:58 AM RACE BOARD ATTENDANT 02/28/2024 4:06 AM RACE BOARD ATTENDANT Jerri Ferrer MD LAB BLOOD ORDERABLES Final Result Performing Organization Address [facility] Co de Phone Number [address] [address] * (ABNORMAL) Thyroid Function [place]roy (02/28/2024 3:58 AM RACE BOARD ATTENDANT) [facility] TSH 19.50(H) 0.30 - 4.20 mcIUnit/mL Blood 02/28/2024 3:58 AM RACE BOARD ATTENDANT 02/28/2024 4:06 AM RACE BOARD ATTENDANT Jerri Ferrer MD LAB BLOOD ORDERABLES Final Result Performing Organization Address [facility] Co de Phone Number [address] [address] * (ABNORMAL) CBC with auto differential (02/28/2024 3:58 AM RACE BOARD ATTENDANT) [facility] WBC 3.2(L) 3.8 - 9.9 K/cumm Hgb 8.4(L) 13.0 - 17.5 g/dL [facility] Hct 26.9(L) 38.9 - 50.3 % [facility] Plt 140(L) 150 - 400 K/cumm [facility] MPV 10.2 9.1 - 12.3 fL [facility] RBC 3.11(L) 4.30 - 5.80 M/cumm [facility] MCV 86.5 81.3 - 96.4 fL [facility] MCH 27.0(L) 27.1 - 33.3 pg [facility] MCHC 31.2(L) 32.3 - 35.7 g/dL [facility] RDW CV 17.0(H) 11.1 - 14.9 % [facility] RDW SD 52.8(H) 35.7 - 48.1 fL [facility] NRBC abs 0.00 0.00 - 0.01 K/cumm [facility] Blood 02/28/2024 3:58 AM RACE BOARD ATTENDANT 02/28/2024 4:06 AM RACE BOARD ATTENDANT Jerri Ferrer MD LAB BLOOD ORDERABLES Final Result Performing Organization Address [facility] Co de Phone Number [address] [place] [address] * (ABNORMAL) T4, free (02/28/2024 3:58 AM RACE BOARD ATTENDANT) Free T4 0.60(L) 0.90 - 1.70 ng/dL Blood 02/28/2024 3:58 AM RACE BOARD ATTENDANT 02/28/2024 4:06 AM RACE BOARD ATTENDANT Narrative [facility] - 02/28/2024 6:07 AM RACE BOARD ATTENDANT This test was reflexed from a TSH result. Jerri Ferrer MD LAB BLOOD ORDERABLES Final Result Performing Organization Address [facility] Co de Phone Number [address] [place] [address] * (ABNORMAL) Phosphorus (02/28/2024 3:58 AM RACE BOARD ATTENDANT) Phosphorus, pl 6.4(H) 2.3 - 4.5 mg/dL Blood 02/28/2024 3:58 AM RACE BOARD ATTENDANT 02/28/2024 4:06 AM RACE BOARD ATTENDANT Jerri Ferrer MD LAB BLOOD ORDERABLES Final Result Performing Organization Address [facility] Co de Phone Number [address] [address] * Magnesium (02/28/2024 3:58 AM RACE BOARD ATTENDANT) [facility] Magnesium 2.0 1.4 - 2.5 mg/dL Blood 02/28/2024 3:58 AM RACE BOARD ATTENDANT 02/28/2024 4:06 AM RACE BOARD ATTENDANT Juan Carlos Saunders NP LAB BLOOD ORDERABLES Fin al Result Performing Organization Address [facility] de Phone Number [address] [address] * (ABNORMAL) Hemoglobin A1c (02/28/2024 3:58 AM RACE BOARD ATTENDANT) [facility] Hgb A1C 6.5(H) 4.0 - 5.6 % Estimated Average Glucose 140 mg/dL [facility] Comment: The ADA recommends reporting an estimated Average Glucose (eAG) with all Hemoglobin A1c results using the equation derived from a study of 507 normal and diabetic adults. Minority populations were underrepresented and children were not included. (Diabetes Care 31:4139-0800, 2008). The eAG is not equivalent to a fasting glucose. Blood 02/28/2024 3:58 AM RACE BOARD ATTENDANT 02/28/2024 4:06 AM RACE BOARD ATTENDANT Jerri Ferrer MD LAB BLOOD ORDERABLES Final Result Performing Organization Address [facility] Co de Phone Number [address] [address] * (ABNORMAL) Basic metabolic panel (02/28/2024 3:58 AM RACE BOARD ATTENDANT) [facility] Sodium 135 135 - 145 mmol/L Potassium, pl 4.7 3.3 - 4.9 mmol/L [facility] Chloride 92(L) 97 - 110 mmol/L [facility] CO2 29 22 - 32 mmol/L [facility] Anion gap 14 2 - 15 mmol/L [facility] BUN 61(H) 6 - 25 mg/dL [facility] Creatinine 7.18(H) 0.80 - 1.30 mg/dL [facility] Glucose 97 70 - 199 mg/dL [facility] Comment: Interpretive Data Fasting glucose >/= 126 [...] 2022. Calcium 7.1(L) 8.5 - 10.3 mg/dL [facility] Blood 02/28/2024 3:58 AM RACE BOARD ATTENDANT 02/28/2024 4:06 AM RACE BOARD ATTENDANT us Jerri Ferrer MD LAB BLOOD ORDERABLES Final Result [facility] [address] [facility] [place] [address] * Hepatitis B surface antibody (immune status) Blood (02/27/2024 4:30 PM RACE BOARD ATTENDANT) HBsAb (immune status) Reactive Comment: Interpretive Data [...] HBsAb (immune status) index 209.0 mIUnits/m L [facility] Blood 02/27/2024 4:30 PM RACE BOARD ATTENDANT 02/27/2024 4:50 PM RACE BOARD ATTENDANT us Alexey Blood MD LAB MICROBIOLOGY - GENERAL ORDERABLES Final Result Performing Organization Address [facility] Co de Phone Number [address] [address] * Hepatitis B Surface Antigen Blood (02/27/2024 4:30 PM RACE BOARD ATTENDANT) [facility] HepBsAg Nonreactive Nonreactive Blood 02/27/2024 4:30 PM RACE BOARD ATTENDANT 02/27/2024 4:50 PM RACE BOARD ATTENDANT Alexey Blood MD LAB MICROBIOLOGY - GENERAL ORDERABLES Final Result Performing Organization Address [facility] de Phone Number [address] [place] [address] * Potassium (02/27/2024 4:30 PM RACE BOARD ATTENDANT) [facility] Potassium, pl 3.9 3.3 - 4.9 mmol/L Blood 02/27/2024 4:30 PM RACE BOARD ATTENDANT 02/27/2024 4:50 PM RACE BOARD ATTENDANT Alexey Blood MD LAB BLOOD ORDERABLES Final Result Performing Organization Address [facility] Co de Phone Number [address] [place] [address] * POCT glucose (02/27/2024 3:37 PM RACE BOARD ATTENDANT) [facility] Glucose, POC 150 70 - 199 mg/dL Blood 02/27/2024 3:37 PM RACE BOARD ATTENDANT 02/27/2024 3:37 PM RACE BOARD ATTENDANT Jerri Ferrer MD LAB POCT ORDERABLES - DEVICE Final Result Performing Organization Address [facility] Co de Phone Number [address] [place] [address] * XR Outside Reference (02/27/2024 9:15 AM RACE BOARD ATTENDANT) Narrative ALAN_MHB_MHE - 03/06/2024 9:14 AM RACE BOARD ATTENDANT This order has been auto-finalized and does not contain a result. us Provider Transcribed Order IMG XR PROCEDURES Fin al Result Performing Organization Address [facility] de Phone Number [email or web address] * XR Outside Reference (02/26/2024 4:40 PM RACE BOARD ATTENDANT) Narrative JOSE C_MHE - 03/06/2024 9:14 AM RACE BOARD ATTENDANT This order has been auto-finalized and does not contain a result. us Provider Transcribed Order IMG XR PROCEDURES Fin al Result Performing Organization Address [facility] de Phone Number [email or web address] * (ABNORMAL) Lipid [...] 3. Miguelito Cao et al. BRYON Cardiol. 2020 July 03;5(5):540-548. doi: [...] 5:38 AM CDT 11/14/2023 5:42 AM CDT Kang Lyles MD LAB BLOOD ORDERABLES Final R esult [place] [place] [address] [facility] [place] [address] from Last 3 Months or Most Recently Relevant to Health Maintenance Insurance [employer] Advance Directives For more information, please contact: [phone] * Full Code (Latest Code Status on [...] 9:26 AM 12/08/2023 6:42 PM Care Teams [employer] Relationship Specialty Start Date End Date Sundar Chisholm DO [address] [place] [address] PCP - General Family Medicine 11/14/23 Marcus Florence MD [address] [place] [address] Consulting Physician Cardiology 11/15/23 Ricki Mills MD [address] [facility] [address] [place] [address] [address] Surgeon Vascular Surgery 04/04/24
[2024-05-23 13:18] LABS: Band Neutrophils Percent 0 % (0-6); Basophils Percent Manual 0 % (0-1); Eosinophils Absolute Manual 0.14 K/mm3 (0.02-0.50); Eosinophils Percent Manual 4 % (1-6); Lymphocytes Absolute Manual 0.79 K/mm3 (1.1-4.5); Lymphocytes Percent Manual 22 % (18-44); Monocytes Percent Manual 3 % (3-9); Neutrophils Absolute Manual 2.55 K/mm3 (1.3-6.7); Neutrophils Percent Manual 71 % (46-73); Platelet Estimate Adequate (Adequate); Total Cells Counted 100
== END 2024-05-23 11:50 | disposition home or self-care (01) ==
PROVIDERS: PCP Nurse Practitioner Family; Visit Provider Nurse Practitioner Family
DX: H57.89 Other specified disorders of eye and adnexa (principal); J32.0 Chronic maxillary sinusitis; J34.2 Deviated nasal septum; M79.89 Other specified soft tissue disorders
CPT/HCPCS: 36415; 70486; 85025